=== PATIENT | male | born 1945 | race Caucasian/White ===

== ENCOUNTER → 2017-11-26 | Outpatient (CLI) | payer MEDICARE ==
--- NOTE | 2017-11-27 08:44 | ECHOF ---
Referral Reason:R06.02 Shortness of Breath MEASUREMENTS -------- HEIGHT: 188.0 cm WEIGHT: 158.8 kg BP: RVIDd: 3.4 cm (< 3.3) IVSd: 1.5 cm (0.6 - 1.1) LVIDd: 3.6 cm (3.9 - 5.3) LVPWd: 1.5 cm (0.6 - 1.1) IVSs: 1.8 cm LVIDs: 2.6 cm LVPWs: 1.9 cm LAESV Index (A-L): 21.66 ml/m Ao Diam: 3.6 cm (2.0 - 3.7) AV Cusp: 1.1 cm (1.5 - 2.6) LA Diam: 4.4 cm (2.7 - 3.8) MV E Babak: 0.51 m/s MV DecT: 92 ms MV A Babak: 0.89 m/s MV E/A Ratio: 0.57 RAP: 5.00 mmHg RVSP: 19.33 mmHg FINDINGS -------- Resting tachycardia (HR>100bpm). This was a technically difficult study with suboptimal views. The left ventricular size is normal. There is moderate concentric left ventricular hypertrophy. O verall left ventricular systolic function is normal with, an EF between 55 - 60 %. The right ventricle is mildly enlarged. Normal LA size by volume 22+/-6 ml/m2. RA appears enlarged. 3 ml of Lumason utilized for the enhancement of images. There is mild aortic valve sclerosis. There is no evidence of aortic regurgitation. There is no e vidence of aortic stenosis. Mild mitral annular calcification present. There is trace to mild mitral regurgitation. Trace tricuspid regurgitation present. Right ventricular systolic pressure is normal at < 35 mmHg. There is no evidence of pulmonary hypertension. Trace/mild (physiologic) pulmonic regurgitation. The aortic root is mildy dilated to 3.8 cm. IVC Not well visulized. There is no pericardial effusion. CONCLUSIONS -------- 1. Resting tachycardia (HR>100bpm). 2. This was a technically difficult study with suboptimal views. 3. The left ventricular size is normal. 4. There is moderate concentric left ventricular hypertrophy. 5. Overall left ventricular systolic function is normal with, an EF between 55 - 60 %. 6. The right ventricle is mildly enlarged. 7. Normal LA size by volume 22+/-6 ml/m2. 8. RA appears enlarged. 9. 3 ml of Lumason utilized for the enhancement of images. 10. There is mild aortic valve sclerosis. 11. Mild mitral annular calcification present. 12. There is trace to mild mitral regurgitation. 13. Trace tricuspid regurgitation present. 14. Right ventricular systolic pressure is normal at < 35 mmHg. 15. There is no evidence of pulmonary hypertension. 16. Trace/mild (physiologic) pulmonic regurgitation. 17. The aortic root is mildy dilated to 3.8 cm. 18. IVC Not well visulized. 19. There is no pericardial effusion. LABORATORY CLERK: Terry Tolliver RDCS
== END | disposition home or self-care (01) ==
LOC: RADECHMAIN 15:33
PROVIDERS: ATTEND Family Medicine
DX: I08.0 Rheumatic disorders of both mitral and aortic valves (principal); I77.819 Aortic ectasia, unspecified site; R00.0 Tachycardia, unspecified
CPT/HCPCS: C8929; Q9950; 93306

== ENCOUNTER → 2017-12-17 | Day surgery (SDC) | payer MEDICARE ==
[2017-12-14 09:59] VITALS: BMI 45.3
[~2017-12-17] MED LIST: LIDOCAINE 1% INJ 10MG/ML (20 ML MDV) ONE; METOPROLOL TARTRATE 50 MG TAB PO SCH; PROPOFOL 10 MG/ML 20 ML VIAL IV ONE; SODIUM CHLORIDE 0.9% 1,000 ML IV SCH; fentaNYL (PF) 50 MCG/ML 2 ML AMP ONE
[2017-12-17 06:37] VITALS: TEMP 98.3
[2017-12-17 06:56] LABS: INR 2.6 (<1.2); Prothrombin Time 23.7 sec (9.0-12.0)
[2017-12-17] MEDS: BENZOCAINE SPRAY 1 CAN MUCOUS MEM ONE ×2 (07:13→07:24)
[2017-12-17 07:16] LABS: Calcium 9.3 mg/dL (8.4-10.2); Potassium 4.8 mmol/L (3.5-5.1)
--- NOTE | 2017-12-17 08:03 | ECHOT ---
TRANSESOPHAGEAL ECHOCARDIOGRAM DATE OF SERVICE: 12/17/2017 PERFORMING PHYSICIAN: Naga Deleon MD, milling/polishing operator. PROCEDURE PERFORMED: Transesophageal echocardiogram. INDICATION: This is a pleasant 72-year-old gentleman who was diagnosed with atrial flutter/atrial fibrillation and was brought today to undergo a cardioversion. The transesophageal echocardiogram is to rule out any left atrial appendage thrombus. COMPLICATION: None. LEVEL OF SEDATION: Deep sedation was performed with SUPERVISOR COAL HANDLING/anesthesiologist in the room and using propofol. PROCEDURE DESCRIPTION: After obtaining an informed consent, the patient was brought to the transesophageal echocardiogram suite. The patient was turned into left lateral position. A bite guard was placed. The throat was sprayed as well. Subsequently, the patient was given propofol. Subsequently the transesophageal echocardiogram probe was advanced through the bite guard to the mid esophagus where 2-D echocardiogram images as well as color Doppler images of various cardiac structures were obtained. Particular attention was paid to the left atrial appendage. The procedure was completed without any complication. FINDINGS: Left ventricular dimension appear to be within normal limits. Left ventricular systolic function is on the low limits of normal with EF about 50%. The right ventricle is dilated. The left atrium and right atrium are severely dilated. Left atrial appendage appeared to be free from any thrombus. The interatrial septum appeared to be intact. The aortic valve is thickened and calcified without stenosis with mild insufficiency. The mitral valve seems to be also thickened with mild MR. Moderate tricuspid regurgitation was seen with a pulmonary artery systolic pressure of 55 mmHg. CONCLUSION: 1. Low normal left ventricular systolic function with an ejection fraction of 50%. 2. Mild concentric left ventricular hypertrophy. 3. Dilated right ventricle with normal function. 4. Severe biatrial enlargement. 5. Intact interatrial septum. 6. Normal left atrial appendage without any evidence of thrombus. 7. Trileaflet aortic valve without stenosis with mild insufficiency with evidence of aortic sclerosis. 8. Thickened mitral valve leaflets with mild mitral regurgitation only. 9. Moderate tricuspid regurgitation. 10.Moderate pulmonary hypertension. 11.No evidence of pericardial effusion. MMODL / IJN: [id number] /
[2017-12-17 08:21] VITALS: RESP 18
--- NOTE | 2017-12-17 08:25 | CE ---
CARDIAC ELECTROPHYSIOLOGY REPORT DATE OF SERVICE: 12/17/2017 PERFORMING PHYSICIAN: Naga Deleon MD. PROCEDURE PERFORMED: Cardioversion. INDICATION: This is a pleasant 72-year-old gentleman who was diagnosed with atrial flutter/atrial fibrillation with uncontrolled heart rate. He underwent transesophageal echocardiogram and left atrial appendage thrombus was ruled out. We decided to pursue with cardioversion. COMPLICATION: None. LEVEL OF SEDATION: Level of sedation was deep sedation with DIVISION ORDER TECHNICIAN/anesthesiologist in the room. PROCEDURE DESCRIPTION: After a transesophageal echocardiogram was performed and left atrial appendage thrombus was ruled out, we pursued with cardioversion. The patient converted from atrial flutter/atrial fibrillation to normal sinus mechanism using 360 joules with the third attempt. CONCLUSION: Successful cardioversion of atrial flutter/atrial fibrillation using 360 joule on third attempt. MMODL / IJN: [id number] /
[2017-12-17 09:20] VITALS: BP 114/83; PULSE 77
== END | disposition home or self-care (01) ==
LOC: CATHCVL 06:01
PROVIDERS: ATTEND Internal Medicine Interventional Cardiology
DX: I48.92 Unspecified atrial flutter (principal); I48.91 Unspecified atrial fibrillation; I08.3 Combined rheumatic disorders of mitral, aortic and tricuspid valves; I27.20 Pulmonary hypertension, unspecified; R00.0 Tachycardia, unspecified; I10 Essential (primary) hypertension; E78.5 Hyperlipidemia, unspecified; I45.6 Pre-excitation syndrome; E66.9 Obesity, unspecified; Z68.42 Body mass index [BMI] 45.0-49.9, adult; G47.33 Obstructive sleep apnea (adult) (pediatric); H40.9 Unspecified glaucoma; M10.9 Gout, unspecified; Z86.718 Personal history of other venous thrombosis and embolism; Z79.01 Long term (current) use of anticoagulants; Z79.899 Other long term (current) drug therapy
CPT/HCPCS: 93312; 93320; 93325; 92960; 80048; 85610; J2001; J3010; J2704; 93005

== ENCOUNTER → 2018-08-15 | Outpatient (CLI) | payer MEDICARE ==
[~2018-08-15] MED LIST changes: -LIDOCAINE 1% INJ 10MG/ML (20 ML MDV) ONE; -METOPROLOL TARTRATE 50 MG TAB PO SCH; -PROPOFOL 10 MG/ML 20 ML VIAL IV ONE; +REGADENOSON 0.4 MG/5 ML SYRINGE IV ONE; -SODIUM CHLORIDE 0.9% 1,000 ML IV SCH; -fentaNYL (PF) 50 MCG/ML 2 ML AMP ONE
--- NOTE | 2018-08-15 11:41 | NM ---
EXAMINATION TYPE: NM stress lexiscan cardiolite DATE OF EXAM: 08/15/2018 COMPARISON: NONE HISTORY: Chest pain TECHNIQUE: After the intravenous administration of 10.7 mCi Tc 99m Sestamibi - Cardiolite resting SP ECT images acquired 45 minutes post injection. The patient received 0.4mg Lexiscan, 25.7 mCi Tc 99m Sestamibi - Stress images obtained [address] injection FINDINGS: Review of stress and rest SPECT images demonstrates no distinct perfusion abnormality. Gated analysi s shows normal wall motion with an estimated left ventricular ejection fraction of 54 %. IMPRESSION: No scintigraphic evidence for reversible ischemia.
--- NOTE | 2018-08-16 09:12 | EST ---
EXERCISE STRESS AGE: 72 SEX: M HT: 6'2' WT: 375 PROTOCOL: Lexiscan Cardiolite Stress Test HEART RATE REST: 82 BLOOD PRESSURE REST: 136/101 MAXIMUM HEART RATE ACHIEVED: 123 MAXIMUM BLOOD PRESSURE: 161/103 85% MPHR: 128 100% MPHR: 150 INDICATIONS: Shortness of breath. Abnormal EKG and atrial fibrillation CLINICAL INFORMATION: STRESS DATA: Pretesting physical examination showed a heart rate of 82, pressure is 136/101 mmHg. Baseline EKG showed atrial flutter. 0.4 mg of Lexiscan was given over 15 seconds per protocol. Max heart rate was 123 beats per minute and maximum pressure was 161/103 mmHg. Clinically, the patient did not have any symptoms of chest pain or discomfort and the EKG did not show any significant ST or T-wave abnormalities concerning for ischemia. CONCLUSION: 1. Nondiagnostic electrocardiogram stress testing in response to Lexiscan. 2. Please follow up on the Cardiolite portion on separate report from the Radiology Department. MMODL / IJN: [id number] /
== END ==
LOC: RADNMMAIN 08:03
PROVIDERS: ATTEND Internal Medicine Interventional Cardiology
DX: R06.02 Shortness of breath (principal)
CPT/HCPCS: 93017; 78452; A9500; J2785

== ENCOUNTER → 2018-11-17 | Outpatient (CLI) | payer MEDICARE ==
--- NOTE | 2018-11-17 12:26 | CONS ---
CONSULTATION DATE OF SERVICE: 11/17/2018 A 72-year-old gentleman has been evaluated in sleep center for obstructive sleep apnea- hypopnea syndrome. HISTORY OF PRESENT ILLNESS/SLEEP WAKE EVALUATION: Patient had been diagnosed with obstructive sleep apnea 1999 at that time was recommended to use treatment with CPAP but for different reason was not able to use treatment. About 1 year ago, he tried to restart his CPAP therapy again by recommendation of his tire regrooving machine operator. Presently his sleep schedule from around midnight until 6 to 9 a.m. Sometimes he has problem with falling asleep, has TV set in bedroom. He sleeps in different positions with loud snoring, episodes of stopped breathing during the sleep, grinding teeth, awakenings with dry mouth, palpitations, gasping for air, up to 3 times per night with up to 2 episodes of nocturia. In the morning, patient wakes up tired, may feel sleepy during the day. [place] Sleepiness Scale is 4. PAST MEDICAL HISTORY: Positive for supraventricular tachycardia, atrial flutter, allergies, right low leg DVT, left foot plantar fasciitis, back problems, neck problems, cardioversion. PAST SURGICAL HISTORY: Right knee arthroscopic surgery, tonsillectomy, bilateral surgery for carpal tunnel syndrome, status post several eye surgeries. MEDICATIONS: Warfarin, metoprolol, probenecid, hydrochlorothiazide, , glucosamine, calcium, vitamin D. REVIEW OF SYSTEMS: Multiple awakenings from sleep. Pain in the foot. Back discomfort. FAMILY HISTORY: Heart problems, stroke, arthritis, sleep apnea, cancer, diabetes. SOCIAL HISTORY: Negative for smoking or using alcohol. PHYSICAL EXAMINATION: During physical exam, gentleman without distress. VITAL SIGNS: BP 127/82, HR 81, RR 14, height 6 feet 1/2 inch, weight 369.8 pounds, body mass index 49.3, temperature 97.5, oxygen saturation at room air 96%. HEENT: PERRLA, EOMI. Oropharynx extremely low position of soft palate. Mallampati 4. Significant restriction of nasal breathing. Wide neck, 21 inches in circumference. NECK: Supple, no JVD. Thyroid is not palpable. LUNGS: Clear to percussion and to auscultation. Good air exchange. No wheezing or rhonchi. HEART: S1, S2 regular. No murmurs, gallops, or rubs. ABDOMEN: Obese. EXTREMITIES: 1+ ankle edema. ICT PROGRAMMER: Awake, alert, and oriented X3. Cranial nerves 2 to 7 intact. There is no fasciculation or atrophy. noted. No focal deficits observed. IMPRESSION: 1. History of obstructive sleep apnea diagnosed about 18 years ago. The patient was not able to use his CPAP equipment after diagnosed with sleep apnea, snoring, multiple awakenings from sleep, extremely low position of soft palate, wide neck, obstructive sleep apnea-hypopnea syndrome. 2. Obesity, body mass index 49.3. 3. History of supraventricular tachycardia. 4. History of atrial flutter. 5. Status post cardioversion in 2016. 6. Allergy. 7. Back problems. 8. Neck problems. 9. Status post right foot deep venous thrombosis. 10.Status post bilateral surgery for carpal tunnel syndrome. 11.Status post tonsillectomy. 12.Status post right knee arthroscopic surgery. 13.Status post several eye surgeries for increased eye pressure. 14.Heel spurs had been removed in other surgery. PLAN: 1. Polysomnography for evaluation of patient's breathing during sleep. 2. CPAP/BiPAP titration if sleep study confirms obstructive sleep apnea-hypopnea syndrome. 3. Preferable position during sleep on the side. 4. No driving if patient feels any sleepiness. 5. I will see patient for follow up visit to explain results of testing and following plan. Thank you very much for referring this patient for consultation. Sincerely, Easton Vann MD, PhD, FAASM Diplomat of [employer] Street Flusher Driver of [facility] [place] MMODL / AKANKSHAN: [id number] /
== END | disposition home or self-care (01) ==
LOC: SLEEP 10:59
PROVIDERS: ATTEND Internal Medicine
DX: G47.33 Obstructive sleep apnea (adult) (pediatric) (principal); E66.9 Obesity, unspecified; T78.40XA Allergy, unspecified, initial encounter; M53.9 Dorsopathy, unspecified; Z68.42 Body mass index [BMI] 45.0-49.9, adult; Z86.718 Personal history of other venous thrombosis and embolism; Z90.09 Acquired absence of other part of head and neck; Z98.890 Other specified postprocedural states; Z86.79 Personal history of other diseases of the circulatory system; Z79.01 Long term (current) use of anticoagulants; Z79.899 Other long term (current) drug therapy
CPT/HCPCS: 99211

== ENCOUNTER → 2019-02-09 | Outpatient (CLI) | payer MEDICARE ==
--- NOTE | 2019-02-09 15:06 | SFUN ---
SLEEP CENTER FOLLOW UP NOTE DATE OF SERVICE: 02/09/2019 A 73-year-old gentleman who has been followed in the Sleep Center for treatment of obstructive sleep apnea-hypopnea syndrome. Recently patient had polysomnogram which showed extremely severe sleep apnea. Subsequently, he had CPAP and BiPAP titration on the pressure of 23/19, respiration was under control. The patient received his BiPAP unit and started to use it. Patient feels better with the BiPAP. Sleep is better and feels better during the day, but sometimes has leak from his mask. He increased his REM time to maximal time 45 minutes because when he started treatment, he felt before the pressure is too high. I checked his BiPAP unit pressure is 23/19 cm of water. The patient is using equipment every night for the whole night, usage is 100% of the time more than 4 hours. Average usage 8.5 hours. to assist 10/23/2006 the: Twenty-three. Leak is up to 46 L/minute. Apnea-hypopnea index is 0 for the last month according to reading from the machine. [place] Sleepiness Scale today is 5. MEDICATIONS: Warfarin, metoprolol, probenecid, hydrochlorothiazide, glucosamine, loratadine, vitamin D, glucosamine. PHYSICAL EXAM: Patient in no distress. BP 129/70, HR 80, RR 18, weight 369.8, temperature 98.1. OROPHARYNX: Low position of soft palate. Mallampati IV. ABDOMEN: Obese. Neck Supple, no JVD. Thyroid is not palpable. LUNGS Clear to percussion and to auscultation. Good air exchange. No wheezing or rhonchi. HEART S1, S2 regular. No murmurs, gallops, or rubs. EXTREMITIES No clubbing or cyanosis. CLOSED CIRCUIT SCREEN WATCHER Awake, alert, and oriented X3. Cranial nerves 2 to 7 intact. There is no fasciculation or atrophy. noted. No focal deficits observed. IMPRESSION: 1. Extremely severe obstructive sleep apnea-hypopnea syndrome; apnea-hypopnea index 78.4. Patient demonstrated 100% compliance with treatment, benefitting from treatment. Quite high leak from the full-face mask. 2. Obesity. 3. History of supraventricular tachycardia. 4. History of atrial flutter. 5. Status post cardioversion in 2016. 6. Allergy. 7. Back problems. 8. Neck problems. 9. Status post right foot deep venous thrombosis. 10.Status post bilateral surgery for carpal tunnel syndrome. 11.Status post tonsillectomy. 12.Status post right knee arthroscopic surgery. 13.Status post several eye surgeries for increased eye pressure. PLAN: 1. I changed regimen of the BiPAP unit to the automatic with the minimal EPAP 10 cm of water and maximal IPAP 23 cm of water with a pressure support of 4. I believe that should make the patient feel more comfortable with the BiPAP unit. 2. Refitted patient with Dream wear full-face mask, large size, but there is a leak from that mask. 3. With proper fitting of the present full-face mask, which is Air Fit Air 20 right size, there is no significant leak. 4. Patient will continue to use BiPAP equipment every night for the whole night. 5. Losing weight. 6. Sleep hygiene with regular time in bed for at least 8 hours. 7. No driving if feeling any sleepiness. Thank you very much for allowing me to participate in the management of your patient. Sincerely, Easton Vann MD, PhD, FAASM Diplomat of [place] [employer] [place] [employer] Photographic Editor of [facility] [place] MMODL / IJN: [id number] /
== END | disposition home or self-care (01) ==
LOC: SLEEP 13:27
PROVIDERS: ATTEND Internal Medicine
DX: G47.33 Obstructive sleep apnea (adult) (pediatric) (principal); E66.9 Obesity, unspecified; T78.40XA Allergy, unspecified, initial encounter; M53.9 Dorsopathy, unspecified; Z86.79 Personal history of other diseases of the circulatory system; Z86.718 Personal history of other venous thrombosis and embolism; Z99.89 Dependence on other enabling machines and devices; Z90.09 Acquired absence of other part of head and neck; Z98.890 Other specified postprocedural states; Z79.01 Long term (current) use of anticoagulants; Z79.899 Other long term (current) drug therapy

== ENCOUNTER → 2019-05-11 | Outpatient (CLI) | payer MEDICARE ==
--- NOTE | 2019-05-11 15:54 | PN ---
PROGRESS NOTE DATE OF SERVICE: 05/11/2019 73-year-old gentleman has been followed in Sleep Center for treatment of severe obstructive sleep apnea-hypopnea syndrome. The patient continued to use his BiPAP equipment every night for the whole night. Feels better with equipment. [place] Sleepiness Scale today is 5. I checked his BiPAP unit. It is in automatic regimen with maximal IPAP 23 cm of water and minimal EPAP 10 cm of water with a pressure support of 4. Average pressure 14.6/10.6. Usage is 100% of nights more than 4 hours with average usage 9.3 hours. Leak 25 L/minute which is borderline for a full-face mask. Apnea-hypopnea index only 0.6, which is absolutely perfect. MEDICATIONS: Warfarin, metoprolol, probenecid, hydrochlorothiazide, glucosamine, loratadine, vitamin D. PHYSICAL EXAM: Patient in no distress. BP 130/78, HR 92, RR 16, height 6 feet 0, weight 364, BMI 49.5, temperature 97.7, oxygen saturation at room air 96%. Oropharynx extremely low soft palate, Mallampati 3-4. Neck Supple, no JVD. Thyroid is not palpable. LUNGS Clear to percussion and to auscultation. Good air exchange. No wheezing or rhonchi. HEART S1, S2 regular. No murmurs, gallops, or rubs. ABDOMEN: Obese. Soft and nontender. Bowel sounds are present. No organomegaly appreciated. EXTREMITIES No clubbing or cyanosis. OPERATIONS CONSULTANT Awake, alert, and oriented X3. Cranial nerves 2 to 7 intact. There is no fasciculation or atrophy. noted. No focal deficits observed. IMPRESSION: 1. Severe obstructive sleep apnea-hypopnea syndrome apnea-hypopnea index 78.4. The patient demonstrated 100% compliance with treatment benefitting from treatment. The leak decreased to normal range comparing with the previous visit. 2. Obesity. 3. History of supraventricular tachycardia. 4. History of atrial flutter. 5. Status post cardioversion in 2016. 6. Allergy. 7. Back problem. 8. Neck problems. 9. Status post right foot deep venous thrombosis. 10.Status post bilateral surgery for carpal tunnel syndrome. 11.Status post tonsillectomy. 12.Status post right knee arthroscopic surgery. 13.Status post several eye surgeries for increased eye pressure. PLAN: 1. Patient will continue to use BiPAP equipment every night for the whole night. 2. Losing weight. 3. Sleep hygiene with regular time in bed for at least 7-1/2 to 8 hours. 4. No driving if feeling any sleepiness. 5. We will maintain all necessary prescriptions for mask, tube, filters. Thank you very much for allowing me to participate in management of your patient. Sincerely, Easton Vann MD, PhD, FAASM Diplomat of [employer] Coin Machine Operator of [facility] [place] MMODL / AKANKSHAN: [id number] /
== END | disposition home or self-care (01) ==
LOC: SLEEP 12:58
PROVIDERS: ATTEND Internal Medicine
DX: G47.33 Obstructive sleep apnea (adult) (pediatric) (principal); T78.40XA Allergy, unspecified, initial encounter; E66.9 Obesity, unspecified; Z86.79 Personal history of other diseases of the circulatory system; Z87.898 Personal history of other specified conditions; Z86.718 Personal history of other venous thrombosis and embolism; Z98.890 Other specified postprocedural states; Z79.01 Long term (current) use of anticoagulants; Z79.899 Other long term (current) drug therapy; Z99.89 Dependence on other enabling machines and devices

== ENCOUNTER 2019-05-20 17:36 | Emergency (ER) | payer MEDICARE ==
[2019-05-20 17:45] VITALS: TEMP 97.9
[2019-05-20] MEDS ORDERED: SODIUM CHLORIDE 0.9% 1,000 ML IV ONE (17:57)
[2019-05-20] MEDS ORDERED: cefTRIAXone IN SWFI 1,000 MG/10 ML SYRINGE IVP STA (17:57)
[2019-05-20] MEDS ORDERED: SODIUM CHLORIDE 0.9% 1,000 ML IV SCH (18:00)
--- NOTE | 2019-05-20 18:24 | ED ---
Lower Extremity Injury HPI - General Chief Complaint: Extremity Injury, Lower Stated Complaint: POSS LEFT FOOT INFECTION Time Seen by Provider: 05/20/19 17:55 Source: patient Mode of arrival: ambulatory Limitations: no limitations - History of Present Illness Initial Comments: 73-year-old male with history of gout, supraventricular tachycardia presents t [facility] for chief complaint of left foot cellulitis. Patient states that on May 14 she noticed redness and pain just proximal to the base of the digits. He states the pain or redness was increasing and on the to present to an urgent care, evaluation by Dr. Lucas. Was prescribed antibiotics, Keflex. Patient states he has taken a total of 5 doses in the last 2 days. He states he continues to have pain and redness, but the redness has not spread. Patinet states he has not recorded a temperature at home. He has been taking tylenol for the pain that he describes as burning 05/13. Patient denies pain of the calf. Denies any other complaints. Upon arrival patient appears well, no signs of acute distress. Afebrile. HR 91, appears nontoxic. - Related Data Home Medications Medication Instructions Recorded Confirmed Cholecalciferol [Vitamin D3 (25 1,000 unit PO DAILY 07/09/15 12/17/17 Mcg = 1000 Iu)] Glucosamine Sulfate 1,000 mg PO DAILY 07/09/15 12/17/17 Probenecid 500 mg PO DAILY 07/09/15 12/17/17 Warfarin [Coumadin] 5 mg PO DAILY 07/09/15 12/17/17 Metoprolol Tartrate [Lopressor] 50 mg PO BID 12/14/17 12/17/17 Oseltamivir [Tamiflu] 75 mg PO Q12HR 12/14/17 12/17/17 Previous Rx's Medication Instructions Recorded Indomethacin [Indocin] 50 mg PO TID 3 Days #9 capsule 05/20/19 Allergies Allergy/AdvReac Type Severity Reaction Status Date / Time DUST, MOLD Allergy SNEEZING, Uncoded 05/20/19 17:38 RHINITIS POLLEN Allergy SNEEZING, Uncoded 05/20/19 17:38 RHINITIS Review of Systems ROS Statement: Those systems with pertinent positive or pertinent negative responses have been documented in the HPI. ROS Other: All systems not noted in ROS Statement are negative. Past Medical History Past Medical History: Deep Vein Thrombosis (DVT), Eye Disorder, Hyperlipidemia, Hypertension, Osteoarthritis (OA), Sleep Apnea/CPAP/BIPAP, Supraventricular Tachycardia (SVT) Additional Past Medical History / Comment(s): HX MALARIA. GOUT. POSS TOMMY- PARKINSON WHITE SYNDROME. UNABLE TO TOLERATE CPAP. GLAUCOMA, HEMORRHOIDS. PRE-CA LESIONS ON SCALP. GLAUCOMA, History of Any Multi-Drug Resistant Organisms: None Reported Past Surgical History: Orthopedic Surgery, Tonsillectomy Additional Past Surgical History / Comment(s): TONSILS X2. JEANE EYES FOR GLAUCOMA , RT KNEE-ARTHROSCOPIC , BILATERAL CARPAL TUNNEL RELEASE Past Anesthesia/Blood Transfusion Reactions: No Reported Reaction Past Psychological History: No Psychological Hx Reported Smoking Status: Never smoker Past Alcohol Use History: None Reported Past Drug Use History: None Reported - Past Family History Mother Family Medical History: Cancer Father Family Medical History: Cancer General Exam - General Exam Comments Initial Comments: General: The patient is awake and alert, in no distress, and does not appear toxic Eye: +3 mm pupils are equal, round and reactive to light, extra-ocular movements are intact. No nystagmus. There is normal conjunctiva bilaterally. No signs of icterus. Patient wearing glasses. Ears, nose, mouth and throat: There are moist mucous membranes and no oral lesions. Cardiovascular: There is a regular rate and rhythm. No murmur, rub or gallop is appreciated. Respiratory: Lungs are clear to auscultation, respirations are non-labored, breath sounds are equal. No wheezes, stridor, rales, or rhonchi. Musculoskeletal: Normal ROM, no tenderness. Strength 5/5. Sensation intact. DP pulses equal bilaterally 2+. LE swelling of the left foot, redness of the foot just proximal to the digits with partial involvement of the toes mostly great toe, extends until midfoot, no extension up calf or near ankle. Neurological: A&O x 3. CN II-XII intact grossly, There are no obvious motor or sensory deficits. Coordination appears grossly intact. Speech is normal. Skin: Skin is warm and dry and no rashes or lesions are noted. Psychiatric: Cooperative, appropriate mood & affect, normal judgment. Limitations: no limitations Course Vital Signs 05/20/19 05/20/19 17:38 20:05 Temperature 97.9 F Pulse Rate 91 88 Respiratory 18 17 Rate Blood Pressure 123/85 144/97 O2 Sat by Pulse 96 95 Oximetry Medical Decision Making - Medical Decision Making 73-year-old male presenting for left foot pain. patient has history of gout. Patient is a [place] by lightening provider Dr. Mccullough, given the extend of redness of great toe with history of no spread of redness with persistent pain we feel this most likely is a gouty exacerbation. Attending recommends discharge home. Patient also states that the night prior to onset he ate pork. patient is afebrile. No leukocytosis. Patient be discharged with instruction to continue Keflex and given a prescription for indomethacin. Patient is to follow-up with his primary care provider. Return parameters were discussed at length patient is agreeable to this care plan discharge at this time. - Lab Data Result diagrams: 05/20/19 18:22 05/20/19 18:22 Lab Results 05/20/19 05/20/19 05/20/19 Range/Units 18:22 18:22 18:22 WBC 6.8 (3.8-10.6) k/uL RBC 5.49 (4.30-5.90) m/uL Hgb 16.9 (13.0-17.5) gm/dL Hct 49.8 (39.0-53.0) % MCV 90.7 (80.0-100.0) fL MCH 30.7 (25.0-35.0) pg MCHC 33.9 (31.0-37.0) g/dL RDW 13.0 (11.5-15.5) % Plt Count 228 (150-450) k/uL Neutrophils % 64 % Lymphocytes % 22 % Monocytes % 6 % Eosinophils % 5 % Basophils % 1 % Neutrophils # 4.3 (1.3-7.7) k/uL Lymphocytes # 1.5 (1.0-4.8) k/uL Monocytes # 0.4 (0-1.0) k/uL Eosinophils # 0.3 (0-0.7) k/uL Basophils # 0.1 (0-0.2) k/uL Sodium 141 (137-145) mmol/L Potassium 4.6 (3.5-5.1) mmol/L Chloride 106 (98-107) mmol/L Carbon Dioxide 25 (22-30) mmol/L Anion Gap 10 mmol/L BUN 31 H (9-20) mg/dL Creatinine 1.44 H (0.66-1.25) mg/dL Est GFR (CKD-EPI)AfAm 56 (>60 ml/min/1.73 sqM) Est GFR (CKD-EPI)NonAf 49 (>60 ml/min/1.73 sqM) Glucose 107 H (74-99) mg/dL Plasma Lactic Acid Stevie 1.4 (0.7-2.0) mmol/L Calcium 9.8 (8.4-10.2) mg/dL Total Bilirubin 0.7 (0.2-1.3) mg/dL AST 31 (17-59) U/L ALT 19 L (21-72) U/L Alkaline Phosphatase 86 (38-126) U/L Total Protein 7.7 (6.3-8.2) g/dL Albumin 4.3 (3.5-5.0) g/dL Disposition Clinical Impression: Gout attack, Left foot pain Disposition: HOME SELF-CARE Condition: Good Instructions (If sedation given, give patient instructions): Low Purine Diet (ED), Gout (ED) Additional Instructions: Please use medication as discussed. Please follow-up with family doctor in the next 2 days. Continue keflex. Please return to emergency room if the symptoms increase or worsen or for any other concerns. Prescriptions: Indomethacin [Indocin] 50 mg PO TID 3 Days #9 capsule Is patient prescribed a controlled substance at d/c from ED?: No Referrals: Luis Fernando Mendes MD [Primary Care Provider] - 1-2 days Time of Disposition: 19:36
--- NOTE | 2019-05-20 18:34 | XR ---
EXAMINATION TYPE: XR foot complete LT DATE OF EXAM: 05/20/2019 COMPARISON: NONE HISTORY: Foot pain TECHNIQUE: 3 views FINDINGS: There is large plantar calcaneal spur. Metatarsals are intact. I see no fracture nor disloc ation. There is some soft tissue swelling of the forefoot. IMPRESSION: Calcaneal spurring. Soft tissue swelling. No fracture seen.
[2019-05-20 18:47] LABS: Basophils # (A) 0.1 k/uL (0-0.2); Basophils % (A) 1 %; Eosinophils # (A) 0.3 k/uL (0-0.7); Eosinophils % (A) 5 %; HCT 49.8 % (39.0-53.0); HGB 16.9 gm/dL (13.0-17.5); Lymphocytes # (A) 1.5 k/uL (1.0-4.8); Lymphocytes % (A) 22 %; MCH 30.7 pg (25.0-35.0); MCHC 33.9 g/dL (31.0-37.0); MCV 90.7 fL (80.0-100.0); Mean Platelet Volume 6.8; Monocytes # (A) 0.4 k/uL (0-1.0); Monocytes % (A) 6 %; Neutrophils # (A) 4.3 k/uL (1.3-7.7); Neutrophils % (A) 64 %; Platelet Count 228 k/uL (150-450); RBC 5.49 m/uL (4.30-5.90); WBC 6.8 k/uL (3.8-10.6)
[2019-05-20 18:56] LABS: Albumin 4.3 g/dL (3.5-5.0); Calcium 9.8 mg/dL (8.4-10.2); Potassium 4.6 mmol/L (3.5-5.1); Total Bilirubin 0.7 mg/dL (0.2-1.3); Total Protein 7.7 g/dL (6.3-8.2)
[2019-05-20 20:16] VITALS: BP 144/97; PULSE 88; RESP 17
== END 2019-05-20 20:16 | disposition home or self-care (01) ==
LOC: EC 17:36
DX: M10.9 Gout, unspecified (principal); G47.30 Sleep apnea, unspecified; M19.90 Unspecified osteoarthritis, unspecified site; I10 Essential (primary) hypertension; Z79.01 Long term (current) use of anticoagulants; Z79.899 Other long term (current) drug therapy; Z91.048 Other nonmedicinal substance allergy status; Z86.718 Personal history of other venous thrombosis and embolism; Z99.89 Dependence on other enabling machines and devices
CPT/HCPCS: 36415; 80053; 83605; 85025; 87040; 73630; 99283; 96374; J0696

== ENCOUNTER → 2019-05-23 | Outpatient (CLI) | payer MEDICARE ==
--- NOTE | 2019-05-23 15:23 | XR ---
Right hip HISTORY: Chronic pain 2 views of the right hip No comparisons Bone mineralization, joint spaces and alignment are maintained. No fracture or dislocation. Calcifica tions present along the hamstring musculature origins could represent calcific tendinitis or chronic tear. IMPRESSION: No acute abnormality. MRI may be of benefit.
--- NOTE | 2019-05-23 15:27 | XR ---
Right knee HISTORY: Chronic pain 3 views of the right knee There is marginal spurring present tricompartmentally. Joint space loss is greatest at the patellofem oral joint. Difficult to exclude a small effusion. There may be slight valgus deformity at the knee j oint. No fracture or dislocation. IMPRESSION: Osteoarthritis.
== END ==
LOC: RADXRMAIN 11:28
PROVIDERS: ATTEND Family Medicine
DX: M17.12 Unilateral primary osteoarthritis, left knee (principal); R52 Pain, unspecified
CPT/HCPCS: 73502

== ENCOUNTER 2019-09-09 18:49 | Emergency (ER) | payer MEDICARE ==
[2019-09-09 19:00] VITALS: RESP 18
[2019-09-09 19:11] LABS: Glucose,Whole Blood 192 mg/dL (75-99)
[2019-09-09] MEDS ORDERED: SODIUM CHLORIDE 0.9% 1,000 ML IV STA (19:14)
--- NOTE | 2019-09-09 19:16 | ED ---
Fall HPI - General Chief Complaint: Fall Stated Complaint: Fall Time Seen by Provider: 09/09/19 19:14 Source: patient, RN notes reviewed, old records reviewed Mode of arrival: ambulatory - History of Present Illness Initial Comments: This is a 73-year-old male status post fall. Patient is on surgical 4 seizures following down his head. No loss of consciousness. Patient is on blood thinners. When he had some neck pain or neck pain. Patient sent here from urgent care for evaluation. No modifying factors for pain. Patient placed in c-collar upon arrival in emergency department. Patient denies any neurological complaints MD Complaint: fall -: hour(s) Fall From: standing When Fall Occurred: 1 hour [employer] Fall Witnessed: yes, by family Place Fall Occurred: home Loss of Consciousness: none Prolonged Down Time?: no Symptoms Prior to Fall: none Location: head, neck Severity: moderate Severity scale (1-10): 3 Context: tripped/slipped Associated Symptoms: denies - Related Data Home Medications Medication Instructions Recorded Confirmed Cholecalciferol [Vitamin D3 (25 1,000 unit PO DAILY 07/09/15 12/17/17 Mcg = 1000 Iu)] Glucosamine Sulfate 1,000 mg PO DAILY 07/09/15 12/17/17 Probenecid 500 mg PO DAILY 07/09/15 12/17/17 Warfarin [Coumadin] 5 mg PO DAILY 07/09/15 12/17/17 Metoprolol Tartrate [Lopressor] 50 mg PO BID 12/14/17 12/17/17 Oseltamivir [Tamiflu] 75 mg PO Q12HR 12/14/17 12/17/17 Previous Rx's Medication Instructions Recorded Indomethacin [Indocin] 50 mg PO TID 3 Days #9 capsule 05/20/19 Allergies Allergy/AdvReac Type Severity Reaction Status Date / Time DUST, MOLD Allergy SNEEZING, Uncoded 09/09/19 18:55 RHINITIS POLLEN Allergy SNEEZING, Uncoded 09/09/19 18:55 RHINITIS Review of Systems ROS Statement: Those systems with pertinent positive or pertinent negative responses have been documented in the HPI. ROS Other: All systems not noted in ROS Statement are negative. Past Medical History Past Medical History: Deep Vein Thrombosis (DVT), Eye Disorder, Hyperlipidemia, Hypertension, Osteoarthritis (OA), Sleep Apnea/CPAP/BIPAP, Supraventricular Tachycardia (SVT) Additional Past Medical History / Comment(s): HX MALARIA. GOUT. POSS TOMMY- PARKINSON WHITE SYNDROME. UNABLE TO TOLERATE CPAP. GLAUCOMA, HEMORRHOIDS. PRE-CA LESIONS ON SCALP. GLAUCOMA, History of Any Multi-Drug Resistant Organisms: None Reported Past Surgical History: Orthopedic Surgery, Tonsillectomy Additional Past Surgical History / Comment(s): TONSILS X2. JEANE EYES FOR GLAUCOMA , RT KNEE-ARTHROSCOPIC , BILATERAL CARPAL TUNNEL RELEASE Past Anesthesia/Blood Transfusion Reactions: No Reported Reaction Past Psychological History: No Psychological Hx Reported Smoking Status: Never smoker Past Alcohol Use History: None Reported Past Drug Use History: None Reported - Past Family History Mother Family Medical History: Cancer Father Family Medical History: Cancer General Exam Limitations: no limitations General appearance: alert, in no apparent distress Head exam: Present: atraumatic, normocephalic, normal inspection Eye exam: Present: normal appearance, PERRL, EOMI. Absent: scleral icterus, conjunctival injection, periorbital swelling ENT exam: Present: normal exam, mucous membranes moist Neck exam: Present: normal inspection. Absent: tenderness, meningismus, lymphadenopathy Respiratory exam: Present: normal lung sounds bilaterally. Absent: respiratory distress, wheezes, rales, rhonchi, stridor Cardiovascular Exam: Present: tachycardia, irregular rhythm, normal heart sounds. Absent: systolic murmur, diastolic murmur, rubs, gallop, clicks GI/Abdominal exam: Present: soft, normal bowel sounds. Absent: distended, tenderness, guarding, rebound, rigid Extremities exam: Present: normal inspection, full ROM, normal capillary refill. Absent: tenderness, pedal edema, joint swelling, calf tenderness Back exam: Present: normal inspection Neurological exam: Present: alert, oriented X3, CN II-XII intact Psychiatric exam: Present: normal affect, normal mood Skin exam: Present: warm, dry, intact, normal color. Absent: rash Course Vital Signs 09/09/19 18:56 Temperature 97.4 F L Pulse Rate 121 H Respiratory 18 Rate Blood Pressure 156/82 O2 Sat by Pulse 96 Oximetry - Reevaluation(s) Reevaluation #1: 09/09/19 22:03 Records reviewed Reevaluation #2: 09/09/19 22:04 Is adequately controlled Reevaluation #3: 09/09/19 22:04 Patient still has no neurological complaints Medical Decision Making - Medical Decision Making Sunita status post fall positive C7 right lamina nonDisplaced fracture, spoke with no, neurosurgery in regard to treatment, patient will follow up with neurosurgery and primary care with outpatient MRI. Patient placed in Yessi collar and discharged all currently again nonneurologic - Lab Data Result diagrams: 09/09/19 20:04 09/09/19 20:04 Lab Results 09/09/19 09/09/19 09/09/19 Range/Units 19:07 19:09 19:09 WBC 9.3 (3.8-10.6) k/uL RBC 5.74 (4.30-5.90) m/uL Hgb 18.0 H (13.0-17.5) gm/dL Hct 51.8 (39.0-53.0) % MCV 90.3 (80.0-100.0) fL MCH 31.3 (25.0-35.0) pg MCHC 34.7 (31.0-37.0) g/dL RDW 12.8 (11.5-15.5) % Plt Count 177 (150-450) k/uL Neutrophils % 86 % Lymphocytes % 8 % Monocytes % 4 % Eosinophils % 1 % Basophils % 0 % Neutrophils # 8.0 H (1.3-7.7) k/uL Lymphocytes # 0.8 L (1.0-4.8) k/uL Monocytes # 0.4 (0-1.0) k/uL Eosinophils # 0.1 (0-0.7) k/uL Basophils # 0.0 (0-0.2) k/uL PT (9.0-12.0) sec INR (<1.2) APTT (22.0-30.0) sec Sodium (137-145) mmol/L Potassium (3.5-5.1) mmol/L Chloride (98-107) mmol/L Carbon Dioxide (22-30) mmol/L Anion Gap mmol/L BUN (9-20) mg/dL Creatinine (0.66-1.25) mg/dL Est GFR (CKD-EPI)AfAm (>60 ml/min/1.73 sqM) Est GFR (CKD-EPI)NonAf (>60 ml/min/1.73 sqM) Glucose (74-99) mg/dL POC Glucose (mg/dL) 192 H (75-99) mg/dL POC [employer] Software Specialist ID Alphonso Tomas Plasma Lactic Acid Stevie (0.7-2.0) mmol/L Calcium (8.4-10.2) mg/dL Total Bilirubin (0.2-1.3) mg/dL AST (17-59) U/L ALT (21-72) U/L Alkaline Phosphatase (38-126) U/L Total Creatine Kinase (55-170) U/L CK-MB (CK-2) (0.0-2.4) ng/mL CK-MB (CK-2) Rel Index Troponin I (0.000-0.034) ng/mL Total Protein (6.3-8.2) g/dL Albumin (3.5-5.0) g/dL Amylase (30-110) U/L Lipase (23-300) U/L Urine Color Urine Appearance (Clear) Urine pH (5.0-8.0) Ur Specific [place] (1.001-1.035) Urine Protein (Negative) Urine Glucose (UA) (Negative) Urine Ketones (Negative) Urine Blood (Negative) Urine Nitrite (Negative) Urine Bilirubin (Negative) Urine Urobilinogen (<2.0) mg/dL Ur Leukocyte Esterase (Negative) Urine RBC (0-5) /hpf Urine WBC (0-5) /hpf Ur Squamous Epith Cells (0-4) /hpf Hyaline Casts (0-2) /lpf Urine Mucus (None) /hpf Urine Opiates Screen (NotDetected) Ur Oxycodone Screen (NotDetected) Urine Methadone Screen (NotDetected) Ur Propoxyphene Screen (NotDetected) Ur Barbiturates Screen (NotDetected) U Tricyclic Antidepress (NotDetected) Ur Phencyclidine Scrn (NotDetected) Ur Amphetamines Screen (NotDetected) U Methamphetamines Scrn (NotDetected) U Benzodiazepines Scrn (NotDetected) Urine Cocaine Screen (NotDetected) U Marijuana (THC) Screen (NotDetected) Serum Alcohol mg/dL Blood Type Not Reportable Blood Type Confirm Blood Type Recheck Not Reportable Bld Type Recheck Status Not Reportable Antibody Screen Not Reportable Spec Expiration Date 09/09/2019 09/09/19 09/09/19 12/07/19 Range/Units 19:19 20:00 20:04 WBC (3.8-10.6) k/uL RBC (4.30-5.90) m/uL Hgb (13.0-17.5) gm/dL Hct (39.0-53.0) % MCV (80.0-100.0) fL MCH (25.0-35.0) pg MCHC (31.0-37.0) g/dL RDW (11.5-15.5) % Plt Count (150-450) k/uL Neutrophils % % Lymphocytes % % Monocytes % % Eosinophils % % Basophils % % Neutrophils # (1.3-7.7) k/uL Lymphocytes # (1.0-4.8) k/uL Monocytes # (0-1.0) k/uL Eosinophils # (0-0.7) k/uL Basophils # (0-0.2) k/uL PT 20.1 H (9.0-12.0) sec INR 2.0 H (<1.2) APTT 30.2 H (22.0-30.0) sec Sodium (137-145) mmol/L Potassium (3.5-5.1) mmol/L Chloride (98-107) mmol/L Carbon Dioxide (22-30) mmol/L Anion Gap mmol/L BUN (9-20) mg/dL Creatinine (0.66-1.25) mg/dL Est GFR (CKD-EPI)AfAm (>60 ml/min/1.73 sqM) Est GFR (CKD-EPI)NonAf (>60 ml/min/1.73 sqM) Glucose (74-99) mg/dL POC Glucose (mg/dL) (75-99) mg/dL POC [employer] Software Specialist ID Plasma Lactic Acid Stevie (0.7-2.0) mmol/L Calcium (8.4-10.2) mg/dL Total Bilirubin (0.2-1.3) mg/dL AST (17-59) U/L ALT (21-72) U/L Alkaline Phosphatase (38-126) U/L Total Creatine Kinase (55-170) U/L CK-MB (CK-2) (0.0-2.4) ng/mL CK-MB (CK-2) Rel Index Troponin I (0.000-0.034) ng/mL Total Protein (6.3-8.2) g/dL Albumin (3.5-5.0) g/dL Amylase (30-110) U/L Lipase (23-300) U/L Urine Color Yellow Urine Appearance Clear (Clear) Urine pH 5.5 (5.0-8.0) Ur Specific [place] 1.017 (1.001-1.035) Urine Protein Negative (Negative) Urine Glucose (UA) Negative (Negative) Urine Ketones Negative (Negative) Urine Blood Small H (Negative) Urine Nitrite Negative (Negative) Urine Bilirubin Negative (Negative) Urine Urobilinogen <2.0 (<2.0) mg/dL Ur Leukocyte Esterase Negative (Negative) Urine RBC <1 (0-5) /hpf Urine WBC 1 (0-5) /hpf Ur Squamous Epith Cells <1 (0-4) /hpf Hyaline Casts 3 H (0-2) /lpf Urine Mucus Rare H (None) /hpf Urine Opiates Screen Not Detected (NotDetected) Ur Oxycodone Screen Not Detected (NotDetected) Urine Methadone Screen Not Detected (NotDetected) Ur Propoxyphene Screen Not Detected (NotDetected) Ur Barbiturates Screen Not Detected (NotDetected) U Tricyclic Antidepress Not Detected (NotDetected) Ur Phencyclidine Scrn Not Detected (NotDetected) Ur Amphetamines Screen Not Detected (NotDetected) U Methamphetamines Scrn Not Detected (NotDetected) U Benzodiazepines Scrn Not Detected (NotDetected) Urine Cocaine Screen Not Detected (NotDetected) U Marijuana (THC) Screen Not Detected (NotDetected) Serum Alcohol mg/dL Blood Type Blood Type Confirm B Negative Blood Type Recheck Bld Type Recheck Status Antibody Screen Spec Expiration Date 09/09/19 09/09/19 09/09/19 Range/Units 20:04 20:04 20:04 WBC 9.1 (3.8-10.6) k/uL RBC 5.22 (4.30-5.90) m/uL Hgb 16.8 (13.0-17.5) gm/dL Hct 46.8 (39.0-53.0) % MCV 89.5 (80.0-100.0) fL MCH 32.1 (25.0-35.0) pg MCHC 35.9 (31.0-37.0) g/dL RDW 12.8 (11.5-15.5) % Plt Count 169 (150-450) k/uL Neutrophils % 84 % Lymphocytes % 9 % Monocytes % 5 % Eosinophils % 1 % Basophils % 0 % Neutrophils # 7.6 (1.3-7.7) k/uL Lymphocytes # 0.8 L (1.0-4.8) k/uL Monocytes # 0.5 (0-1.0) k/uL Eosinophils # 0.1 (0-0.7) k/uL Basophils # 0.0 (0-0.2) k/uL PT (9.0-12.0) sec INR (<1.2) APTT (22.0-30.0) sec Sodium 139 (137-145) mmol/L Potassium 3.9 (3.5-5.1) mmol/L Chloride 106 (98-107) mmol/L Carbon Dioxide 26 (22-30) mmol/L Anion Gap 7 mmol/L BUN 30 H (9-20) mg/dL Creatinine 1.48 H (0.66-1.25) mg/dL Est GFR (CKD-EPI)AfAm 54 (>60 ml/min/1.73 sqM) Est GFR (CKD-EPI)NonAf 47 (>60 ml/min/1.73 sqM) Glucose 138 H (74-99) mg/dL POC Glucose (mg/dL) (75-99) mg/dL POC [employer] Software Specialist ID Plasma Lactic Acid Stevie (0.7-2.0) mmol/L Calcium 9.3 (8.4-10.2) mg/dL Total Bilirubin 1.0 (0.2-1.3) mg/dL AST 50 (17-59) U/L ALT 35 (21-72) U/L Alkaline Phosphatase 79 (38-126) U/L Total Creatine Kinase (55-170) U/L CK-MB (CK-2) (0.0-2.4) ng/mL CK-MB (CK-2) Rel Index Troponin I (0.000-0.034) ng/mL Total Protein 6.9 (6.3-8.2) g/dL Albumin 4.0 (3.5-5.0) g/dL Amylase 54 (30-110) U/L Lipase 240 (23-300) U/L Urine Color Urine Appearance (Clear) Urine pH (5.0-8.0) Ur Specific [place] (1.001-1.035) Urine Protein (Negative) Urine Glucose (UA) (Negative) Urine Ketones (Negative) Urine Blood (Negative) Urine Nitrite (Negative) Urine Bilirubin (Negative) Urine Urobilinogen (<2.0) mg/dL Ur Leukocyte Esterase (Negative) Urine RBC (0-5) /hpf Urine WBC (0-5) /hpf Ur Squamous Epith Cells (0-4) /hpf Hyaline Casts (0-2) /lpf Urine Mucus (None) /hpf Urine Opiates Screen (NotDetected) Ur Oxycodone Screen (NotDetected) Urine Methadone Screen (NotDetected) Ur Propoxyphene Screen (NotDetected) Ur Barbiturates Screen (NotDetected) U Tricyclic Antidepress (NotDetected) Ur Phencyclidine Scrn (NotDetected) Ur Amphetamines Screen (NotDetected) U Methamphetamines Scrn (NotDetected) U Benzodiazepines Scrn (NotDetected) Urine Cocaine Screen (NotDetected) U Marijuana (THC) Screen (NotDetected) Serum Alcohol <10 mg/dL Blood Type B Negative Blood Type Confirm Blood Type Recheck No Previous Record Bld Type Recheck Status CABO Indicated Antibody Screen NEGATIVE Spec Expiration Date 09/12/2019230309/09/19 09/09/19 Range/Units 20:04 20:04 WBC (3.8-10.6) k/uL RBC (4.30-5.90) m/uL Hgb (13.0-17.5) gm/dL Hct (39.0-53.0) % MCV (80.0-100.0) fL MCH (25.0-35.0) pg MCHC (31.0-37.0) g/dL RDW (11.5-15.5) % Plt Count (150-450) k/uL Neutrophils % % Lymphocytes % % Monocytes % % Eosinophils % % Basophils % % Neutrophils # (1.3-7.7) k/uL Lymphocytes # (1.0-4.8) k/uL Monocytes # (0-1.0) k/uL Eosinophils # (0-0.7) k/uL Basophils # (0-0.2) k/uL PT (9.0-12.0) sec INR (<1.2) APTT (22.0-30.0) sec Sodium (137-145) mmol/L Potassium (3.5-5.1) mmol/L Chloride (98-107) mmol/L Carbon Dioxide (22-30) mmol/L Anion Gap mmol/L BUN (9-20) mg/dL Creatinine (0.66-1.25) mg/dL Est GFR (CKD-EPI)AfAm (>60 ml/min/1.73 sqM) Est GFR (CKD-EPI)NonAf (>60 ml/min/1.73 sqM) Glucose (74-99) mg/dL POC Glucose (mg/dL) (75-99) mg/dL POC [employer] Software Specialist ID Plasma Lactic Acid Stevie 1.1 (0.7-2.0) mmol/L Calcium (8.4-10.2) mg/dL Total Bilirubin (0.2-1.3) mg/dL AST (17-59) U/L ALT (21-72) U/L Alkaline Phosphatase (38-126) U/L Total Creatine Kinase 1319 H* (55-170) U/L CK-MB (CK-2) 24.3 H (0.0-2.4) ng/mL CK-MB (CK-2) Rel Index 1.8 Troponin I <0.012 (0.000-0.034) ng/mL Total Protein (6.3-8.2) g/dL Albumin (3.5-5.0) g/dL Amylase (30-110) U/L Lipase (23-300) U/L Urine Color Urine Appearance (Clear) Urine pH (5.0-8.0) Ur Specific [place] (1.001-1.035) Urine Protein (Negative) Urine Glucose (UA) (Negative) Urine Ketones (Negative) Urine Blood (Negative) Urine Nitrite (Negative) Urine Bilirubin (Negative) Urine Urobilinogen (<2.0) mg/dL Ur Leukocyte Esterase (Negative) Urine RBC (0-5) /hpf Urine WBC (0-5) /hpf Ur Squamous Epith Cells (0-4) /hpf Hyaline Casts (0-2) /lpf Urine Mucus (None) /hpf Urine Opiates Screen (NotDetected) Ur Oxycodone Screen (NotDetected) Urine Methadone Screen (NotDetected) Ur Propoxyphene Screen (NotDetected) Ur Barbiturates Screen (NotDetected) U Tricyclic Antidepress (NotDetected) Ur Phencyclidine Scrn (NotDetected) Ur Amphetamines Screen (NotDetected) U Methamphetamines Scrn (NotDetected) U Benzodiazepines Scrn (NotDetected) Urine Cocaine Screen (NotDetected) U Marijuana (THC) Screen (NotDetected) Serum Alcohol mg/dL Blood Type Blood Type Confirm Blood Type Recheck Bld Type Recheck Status Antibody Screen Spec Expiration Date - EKG Data -: EKG Interpreted by Me (EKG shows a flutter rate of 118, QRS 94, QTC 496) - Radiology Data Radiology results: report reviewed (CT brain and C-spine shows right laminal fracture at C7 chest and pelvis x-ray negative for traumatic injury), image reviewed Disposition Clinical Impression: Fracture of lamina of cervical vertebra, Fall Disposition: HOME SELF-CARE Condition: Good Instructions (If sedation given, give patient instructions): Fall Prevention for Older Adults (ED), Soft Cervical Collar (ED), Cervical Fracture (ED) Is patient prescribed a controlled substance at d/c from ED?: No Referrals: Luis Fernando Mendes MD [Primary Care Provider] - 1-2 days
[2019-09-09 19:53] LABS: Basophils % (A) 0 %; Eosinophils # (A) 0.1 k/uL (0-0.7); Eosinophils % (A) 1 %; HCT 51.8 % (39.0-53.0); Lymphocytes # (A) 0.8 k/uL (1.0-4.8); Lymphocytes % (A) 8 %; MCH 31.3 pg (25.0-35.0); MCHC 34.7 g/dL (31.0-37.0); MCV 90.3 fL (80.0-100.0); Mean Platelet Volume 7.3; Monocytes # (A) 0.4 k/uL (0-1.0); Monocytes % (A) 4 %; Neutrophils % (A) 86 %; Platelet Count 177 k/uL (150-450); RBC 5.74 m/uL (4.30-5.90); RDW 12.8 % (11.5-15.5); WBC 9.3 k/uL (3.8-10.6)
--- NOTE | 2019-09-09 20:18 | XR ---
EXAMINATION TYPE: XR pelvis AP view DATE OF EXAM: 09/09/2019 CLINICAL HISTORY: Fall TECHNIQUE: A single AP view of the pelvis is obtained. COMPARISON: None. FINDINGS: Ilioischial and iliopectineal lines are intact. Sacroiliac joints and pubic symphysis are c ongruent. Sacrum arcuate lines are intact bilaterally. Both hips are located with mild degenerative c hanges present at each. Degenerative changes also noted of the lower lumbar spine. IMPRESSION: There is no acute fracture or dislocation in the pelvis.
--- NOTE | 2019-09-09 20:19 | XR ---
EXAMINATION TYPE: XR chest 1V portable DATE OF EXAM: 09/09/2019 COMPARISON: NONE HISTORY: Trauma TECHNIQUE: Single frontal view of the chest is obtained. FINDINGS: There is no focal air space opacity, pleural effusion, or pneumothorax seen. The cardiac silhouette size is within normal limits. The osseous structures are intact. IMPRESSION: No acute process.
[2019-09-09 20:26] LABS: Partial Thromboplastin Time 30.2 sec (22.0-30.0); Prothrombin Time 20.1 sec (9.0-12.0)
[2019-09-09 20:29] LABS: Basophils % (A) 0 %; Eosinophils # (A) 0.1 k/uL (0-0.7); Eosinophils % (A) 1 %; HCT 46.8 % (39.0-53.0); HGB 16.8 gm/dL (13.0-17.5); Lymphocytes # (A) 0.8 k/uL (1.0-4.8); Lymphocytes % (A) 9 %; MCH 32.1 pg (25.0-35.0); MCHC 35.9 g/dL (31.0-37.0); MCV 89.5 fL (80.0-100.0); Monocytes # (A) 0.5 k/uL (0-1.0); Monocytes % (A) 5 %; Neutrophils # (A) 7.6 k/uL (1.3-7.7); Neutrophils % (A) 84 %; Platelet Count 169 k/uL (150-450); RBC 5.22 m/uL (4.30-5.90); RDW 12.8 % (11.5-15.5); WBC 9.1 k/uL (3.8-10.6)
--- NOTE | 2019-09-09 20:30 | CT ---
EXAMINATION TYPE: CT brain soham hemphill DATE OF EXAM: 09/09/2019 COMPARISON: None HISTORY: Pt fell down 4 stairs, hit back of head. Sent from [facility]. C/o Lt side neck pain TECHNIQUE: 1. Axial CT images of the head without contrast. Bone windows and sagittal and coronal reformats were reviewed. 2. Axial CT images of the cervical spine without contrast. Bone windows and sagittal and coronal refo rmats were reviewed. 3. CT DLP: 2109 mGycm Automated exposure control for dose reduction was used. FINDINGS: CT Head: No acute intracranial hemorrhage. Martinez-white differentiation is preserved. The ventricular system is normal in size and morphology. No abnormal extra-axial fluid collections or midline shift of structures. Patent basal cisterns. No depressed or displaced calvarial fracture. Minimal soft tissue swelling over the left parietal sca lp. Intracranial vascular calcifications. Visualized paranasal sinuses and temporal bone structures a re well aerated. The orbits and skull base are unremarkable. CT Cervical Spine: The cervical spine is imaged through T3. Vertebral bodies and facet joints are anatomically aligned. Nondisplaced fracture through the right C7 lamina. Vertebral body heights are maintained. Degenerative changes throughout the cervical spine are greatest in degree at C5-C6 and C6-C7 characte rized by disc height loss, discogenic endplate change, and posterior vertebral body spurring. Multile rocael facet arthropathy. No prevertebral edema or soft tissue abnormality. Lung apices are clear. IMPRESSION: 1. No acute intracranial abnormality. 2. Nondisplaced fracture through the right C7 lamina.
[2019-09-09 20:41] LABS: Creatine Kinase MB 24.3 ng/mL (0.0-2.4); Troponin I <0.012 ng/mL (0.000-0.034)
[2019-09-09 20:44] LABS: Creatine Kinase 1319 U/L (55-170)
[2019-09-09 21:01] LABS: ALT 35 U/L (21-72); AST 50 U/L (17-59); African American GFR (CKD) 54 (>60 ml/min/1.73 sqM); Alcohol <10 mg/dL; Alkaline Phosphatase 79 U/L (38-126); Amylase 54 U/L (30-110); Anion Gap 7 mmol/L; Blood Urea Nitrogen 30 mg/dL (9-20); Calcium 9.3 mg/dL (8.4-10.2); Carbon Dioxide 26 mmol/L (22-30); Chloride 106 mmol/L (98-107); Glucose 138 mg/dL (74-99); Non-African American GFR(CKD) 47 (>60 ml/min/1.73 sqM); Potassium 3.9 mmol/L (3.5-5.1); Sodium 139 mmol/L (137-145); Total Protein 6.9 g/dL (6.3-8.2)
[2019-09-09 21:26] LABS: Appearance,Urine Clear (Clear); Bilirubin,Urine Negative (Negative); Blood,Urine Small (Negative); Color,Urine Yellow; Glucose,Urine (UA) Negative (Negative); Hyaline Casts,Urine 3 /lpf (0-2); Ketones,Urine Negative (Negative); Leukocyte Esterase,Urine Negative (Negative); Mucus,Urine Rare /hpf; Nitrite,Urine Negative (Negative); PH, Urine 5.5 (5.0-8.0); Protein,Urine Negative (Negative); RBC,Urine <1 /hpf (0-5); Specific Gravity,Urine 1.017 (1.001-1.035); Squamous Epithelial Cell,Urine <1 /hpf (0-4); Urobilinogen,Urine <2.0 mg/dL (<2.0); WBC,Urine 1 /hpf (0-5)
[2019-09-09 21:34] LABS: Amphetamine Screen,Urine Not Detected (NotDetected); Barbiturate Screen,Urine Not Detected (NotDetected); Benzodiazepines Screen,Urine Not Detected (NotDetected); Cocaine Screen,Urine Not Detected (NotDetected); Methadone Screen, Urine Not Detected (NotDetected); Opiate Screen,Urine Not Detected (NotDetected); Oxycodone Screen, Urine Not Detected (NotDetected); Phencyclidine Screen,Urine Not Detected (NotDetected); Tricyclic Antidepressant,Urine Not Detected (NotDetected); Urn Cannabinoid Scrn Not Detected (NotDetected)
[2019-09-09 23:24] VITALS: BP 126/91; PULSE 80; TEMP 98.3
== END 2019-09-09 23:10 | disposition home or self-care (01) ==
LOC: EC 18:49
DX: S12.601A Unspecified nondisplaced fracture of seventh cervical vertebra, initial encounter for closed fracture (principal); I10 Essential (primary) hypertension; I47.1 Supraventricular tachycardia; G47.30 Sleep apnea, unspecified; H40.9 Unspecified glaucoma; J30.1 Allergic rhinitis due to pollen; M19.90 Unspecified osteoarthritis, unspecified site; M10.9 Gout, unspecified; Z79.01 Long term (current) use of anticoagulants; Z91.048 Other nonmedicinal substance allergy status; Z79.899 Other long term (current) drug therapy; Z99.89 Dependence on other enabling machines and devices; Z86.718 Personal history of other venous thrombosis and embolism; W10.8XXA Fall (on) (from) other stairs and steps, initial encounter; Y92.009 Unspecified place in unspecified non-institutional (private) residence as the place of occurrence of the external cause
CPT/HCPCS: 36415; 93005; 86900; 86901; 80053; 82150; 82550; 82553; 83605; 83690; 84484; 85025; 85610; 85730; 86850; 81001; 80306; 72170; 71045; 72125; 70450; 99284; 96360; 96361 ×3; G0480; 80320; 96372

== ENCOUNTER → 2020-05-09 | Outpatient (CLI) | payer MEDICARE ==
--- NOTE | 2020-05-09 22:08 | SFUN ---
SLEEP CENTER FOLLOW UP NOTE DATE OF SERVICE: 05/09/2020 This patient is a 74-year-old gentleman who has been followed in Sleep Center for treatment of obstructive sleep apnea-hypopnea syndrome. The patient continues to use his CPAP equipment successfully every night without significant problems related to mask fitting, pressure or humidification. [place] Sleepiness Scale today is 2. I checked in his BiPAP unit. Maximal inspiratory pressure is 23, expiratory pressure minimal 10, pressure support 4. Average pressure 14.6/10.6. Usage is 100% for more than 4 hours with average usage 8.2 hours per night. Leak is only 6 L/minute, which is absolutely normal. Apnea-hypopnea index only 0.4, which is perfect. MEDICATIONS: Colchicine, warfarin, metoprolol, probenecid, hydrochlorothiazide, vitamins. PHYSICAL EXAMINATION: GENERAL: A pleasant patient in no distress. VITAL SIGNS: BP 112/75, HR 96, RR 16, height 6 feet zero inches, weight 360, which is 4 pounds less than during previous visit. BMI 48.8, temperature 98.0. Oxygen saturation at room air 96%. HEENT: PERRLA, EOMI. Evaluation of oropharynx showed tongue protrudes midline. Low position of soft palate. Mallampati III to IV. NECK: Supple. No JVD. Thyroid is not palpable. Neck measures 19-1/2 inches in circumference. LUNGS: Clear to percussion and to auscultation. Good air exchange. No wheezing or rhonchi. HEART: S1, S2 regular. No murmurs, gallops or rubs. ABDOMEN: Obese. EXTREMITIES: No clubbing or cyanosis. RNP: Awake, alert, and oriented X3. Cranial nerves 2 to 7 intact. There is no fasciculation or atrophy. noted. No focal deficits observed. IMPRESSION: 1. Severe obstructive sleep apnea-hypopnea syndrome, AHI 78.4. Respiration under full control with BiPAP. The patient demonstrated 100% compliance with treatment. 2. History of supraventricular tachycardia. 3. History of atrial flutter. 4. Status post cardioversion. 5. Allergies. 6. Obesity. 7. Back problems. 8. Neck problems. 9. Status post right foot deep venous thrombosis. 10.Status post bilateral surgery for carpal tunnel syndrome. 11.Status post tonsillectomy. 12.Status post right knee arthroscopic surgery. 13.Status post several eye surgeries for increased eye pressure. PLAN: 1. Patient will continue to use PAP equipment every night for the whole night. 2. Sleep hygiene with regular time in bed for at least 7-1/2 to 8 hours. 3. Precautions related to driving. No driving if feeling sleepiness. 4. I will maintain all necessary prescription for PAP supplies including mask, tube, filters. 5. Watching weight. 6. No driving if feeling sleepiness. 7. Follow-up visit in 6 months or earlier if patient has any problems. Thank you very much for allowing me to participate in the management of your patient. Sincerely, Easton Vann MD, PhD, FAASM Diplomat of [employer] [employer] Director [employer] of [facility] [place] MMODL / AKANKSHAN: [id number] /
== END | disposition home or self-care (01) ==
LOC: SLEEP 13:13
PROVIDERS: ATTEND Internal Medicine
DX: G47.33 Obstructive sleep apnea (adult) (pediatric) (principal); M53.80 Other specified dorsopathies, site unspecified; M43.8X2 Other specified deforming dorsopathies, cervical region; M43.8X9 Other specified deforming dorsopathies, site unspecified; E66.9 Obesity, unspecified; Z87.39 Personal history of other diseases of the musculoskeletal system and connective tissue; Z86.718 Personal history of other venous thrombosis and embolism; Z99.89 Dependence on other enabling machines and devices; Z98.890 Other specified postprocedural states

== ENCOUNTER → 2020-10-14 | Outpatient (CLI) | payer MEDICARE | END | disposition home or self-care (01) | LOC: LABWHC1 13:09 | PROVIDERS: ATTEND Family Medicine | DX: J02.9 Acute pharyngitis, unspecified (principal); R09.81 Nasal congestion; Z20.822 Contact with and (suspected) exposure to COVID-19 | CPT/HCPCS: U0003; C9803; U0005 ==

== ENCOUNTER → 2020-11-28 | Outpatient (CLI) | payer MEDICARE ==
--- NOTE | 2020-11-28 16:44 | SFUN ---
SLEEP CENTER FOLLOW UP NOTE DATE OF SERVICE: 11/28/2020 This is a 74-year-old gentleman who has been followed in Sleep Center for treatment of extremely severe obstructive sleep apnea-hypopnea syndrome. The patient continues to use his CPAP equipment every night for the whole night and he needs to replace his full- face mask. I checked his BiPAP unit. It is in automatic regimen with maximum inspiratory pressure 23, minimal expiratory pressure 10 cm of water with a pressure support of 4. The patient is using it every night, 8.7 hours per night. Leak is 13 L/minute, which is acceptable. Apnea-hypopnea index is only 0.5, which is absolutely perfect. MEDICATIONS: 1. Warfarin 5 mg once a day. 2. Metoprolol 50 mg twice a day. 3. Probenecid 500 mg twice a day. 4. Colchicine 0.6 mg twice a day. 5. Hydrochlorothiazide 12.5 mg every second day. 6. Cetirizine 10 mg once a day. 7. Loratadine 10 mg once a day. 8. Glucosamine supplement. PHYSICAL EXAMINATION: GENERAL: A pleasant patient in no distress. VITAL SIGNS: BP 136/83, HR 88, RR 18, height 6 feet 1 inch, weight 370.2, which is 10 pounds more than during his last visit, temperature 92.3, oxygen saturation at room air 96%. HEENT: LAURYNRZEINAB, EOMI. Evaluation of oropharynx showed tongue protrudes midline. Low position of soft palate. Mallampati III to IV. NECK: Supple. No JVD. Thyroid is not palpable. LUNGS: Clear to percussion and to auscultation. Good air exchange. No wheezing or rhonchi. HEART: S1, S2 regular. No murmurs, gallops or rubs. ABDOMEN: Obese. EXTREMITIES: No clubbing or cyanosis. DIGITAL INTERN: Awake, alert, and oriented X3. Cranial nerves 2 to 7 intact. There is no fasciculation or atrophy. noted. No focal deficits observed. IMPRESSION: 1. Severe obstructive sleep apnea-hypopnea syndrome; AHI 78.4, under full control with BiPAP. The patient demonstrated 100% compliance with treatment, benefitting from treatment. 2. History of supraventricular tachycardia. 3. History of atrial flutter. 4. Status post cardioversion. 5. Allergies. 6. Obesity. 7. Back problems. 8. Neck problems. 9. Status post right foot DVT. 10.Status post bilateral surgery for carpal tunnel syndrome. 11.Status post tonsillectomy. 12.Status post right knee arthroscopic surgery. 13.Status post several eye surgeries for increased eye pressure. PLAN: 1. Patient will continue to use his BiPAP equipment with the same regimen. 2. Prescription for a full-face AirFit F20 large-sized mask. 3. Sleep hygiene with regular time in bed for at least 7-1/2 to 8 hours. 4. Precautions related to driving. No driving if feeling sleepiness. 5. I will maintain all necessary prescription for PAP supplies including mask, tube, filters. 6. Watching weight. 7. No driving if feeling sleepiness. 8. Follow-up visit in 6 months or earlier if patient has any problems. Thank you very much for allowing me to participate in the management of your patient. Sincerely, Easton Vann MD, PhD, FAASM Diplomat of [place] [employer] [place] [employer] Salesperson of [facility] [place] MMODL / AKANKSHAN: [id number] /
== END | disposition home or self-care (01) ==
LOC: SLEEP 10:59
PROVIDERS: ATTEND Internal Medicine
DX: G47.33 Obstructive sleep apnea (adult) (pediatric) (principal); E66.9 Obesity, unspecified; M54.2 Cervicalgia; Z86.79 Personal history of other diseases of the circulatory system; Z98.890 Other specified postprocedural states; Z79.01 Long term (current) use of anticoagulants; Z79.899 Other long term (current) drug therapy; Z79.2 Long term (current) use of antibiotics

== ENCOUNTER → 2021-05-02 | Outpatient (CLI) | payer MEDICARE ==
--- NOTE | 2021-05-02 12:23 | XR ---
EXAMINATION TYPE: XR foot complete RT DATE OF EXAM: 05/02/2021 COMPARISON: NONE HISTORY: Pain TECHNIQUE: Three views are submitted. FINDINGS: There is significant arthropathy of the tarsal metatarsal joint and first MTP joint. Large calcaneal plantar spur. Osseous structures grossly intact with no acute displaced fracture. There are 2 small r adiopaque densities near the ball (plantar surface ) which is indeterminate. IMPRESSION: 1. 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 2. There is a radiopaque density near the ball of foot along the plantar surface digitally. This is r elated to calcification or foreign body.
== END | disposition home or self-care (01) ==
LOC: RADXRMAIN 11:57
PROVIDERS: ATTEND Podiatrist Foot Surgery
DX: M12.871 Other specific arthropathies, not elsewhere classified, right ankle and foot (principal)

== ENCOUNTER → 2021-06-05 | Outpatient (CLI) | payer MEDICARE ==
--- NOTE | 2021-06-05 18:12 | SFUN ---
SLEEP CENTER FOLLOW UP NOTE DATE OF SERVICE: 06/05/2021 This 75-year-old gentleman has been followed in Sleep Center for treatment of obstructive sleep apnea-hypopnea syndrome. Patient continues to use his BiPAP equipment every night. He is getting his supplies on time. He reported that he feels that there is a leak from his full-face mask sometimes into the eye area and sometimes under the chin. I checked his BiPAP unit. Maximal inspiratory pressure is 23, minimal expiratory pressure 10, pressure support 4, average pressure 14.5/10.5. Usage 30/30 nights for more than 4 hours, average 8.4 hours per night. Leak is quite high at 48 L/minute. Apnea-hypopnea index, though, is totally normal at 0.4. MEDICATIONS: 1. Warfarin 5 mg daily. 2. Carvedilol 12.5 mg twice a day. 3. Metoprolol 50 mg twice a day. 4. Probenecid 500 mg twice a day. 5. Colchicine 0.6 mg twice a day. 6. Hydrochlorothiazide 12.5 mg every second day. 7. Cetirizine 10 mg once a day. 8. Loratadine 10 mg once a day. PHYSICAL EXAMINATION: GENERAL: Pleasant patient in no distress. VITAL SIGNS: BP 138/84, HR 94, RR 15, height 6 feet 0 inches, weight 368.8, about the same weight as during previous visit, BMI 49.9, temperature 98.3, oxygen saturation at room air 94%. HEENT: PERRLA, EOMI, evaluation of oropharynx showed tongue protrudes midline. Low position of soft palate; Mallampati III to IV. NECK: Supple, no JVD. Thyroid is not palpable. LUNGS: Clear to percussion and to auscultation. Good air exchange. No wheezing or rhonchi. HEART: S1, S2 regular. No murmurs, gallops, or rubs. ABDOMEN: Obese. EXTREMITIES: No clubbing or cyanosis. EVENT EXECUTIVE: Awake, alert, and oriented X3. Cranial nerves 2 to 7 intact. There is no fasciculation or atrophy. noted. No focal deficits observed. IMPRESSION: 1. Severe obstructive sleep apnea-hypopnea syndrome; apnea-hypopnea index 78.4. The patient demonstrated 100% compliance with treatment, benefitting from treatment. Significant leak from the full-face mask. 2. History of supraventricular tachycardia. 3. History of atrial flutter. 4. Status post cardioversion. 5. Allergies. 6. Morbid obesity. BMI 49.9. 7. Back problems. 8. Neck problems. 9. Status post right foot deep vein thrombosis. 10.Status post bilateral surgery for carpal tunnel syndrome. 11.Status post tonsillectomy. 12.Status post right knee arthroscopic surgery. 13.Status post several eye surgeries for increased eye pressure. PLAN: 1. Prescription for DreamWear [id number] full-face mask. 2. Patient will continue to use PAP equipment every night for the whole night. 3. Sleep hygiene with regular time in bed for at least 7-1/2 to 8 hours. 4. Precautions related to driving. No driving if feeling sleepiness. 5. I will maintain all necessary prescription for PAP supplies including mask, tube, filters. 6. Watching weight. 7. Follow-up visit in 6 months or earlier if patient has any problems. Thank you very much for allowing me to participate in the management of your patient. Sincerely, Easton Vann MD, PhD, FAASM Diplomat of [employer] Sleep Medicine Board of [employer] Core Stacker of [facility] [place] MMODL / IJN: [id number] /
== END ==
LOC: SLEEP 13:12
PROVIDERS: ATTEND Internal Medicine
DX: G47.33 Obstructive sleep apnea (adult) (pediatric) (principal); M53.80 Other specified dorsopathies, site unspecified; M53.82 Other specified dorsopathies, cervical region; E66.01 Morbid (severe) obesity due to excess calories; Z68.42 Body mass index [BMI] 45.0-49.9, adult; Z86.79 Personal history of other diseases of the circulatory system; T78.40XA Allergy, unspecified, initial encounter; I82.401 Acute embolism and thrombosis of unspecified deep veins of right lower extremity; Z98.890 Other specified postprocedural states; Z90.09 Acquired absence of other part of head and neck; Z99.89 Dependence on other enabling machines and devices; Z79.01 Long term (current) use of anticoagulants

== ENCOUNTER → 2021-12-11 | Outpatient (CLI) | payer MEDICARE ==
--- NOTE | 2021-12-11 16:10 | SFUN ---
SLEEP CENTER FOLLOW UP NOTE DATE OF SERVICE: 12/11/2021. 76-year-old gentleman has been followed in Sleep Center for treatment of obstructive sleep apnea-hypopnea syndrome. Patient continues to use his BiPAP equipment every night, getting his supplies in time replacing his air filter. He likes his mask now more than previous, he is using Dream Wear under the nose fullface mask which I recommend him last time. I checked his BiPAP unit. Maximal inspiratory pressure 23, minimal expiratory pressure 10, pressure support 4, average pressure 14.7/10.7, usage 30/30 nights for more than 4 hours, average 8.4 hours per night. Leak is 37 L per minute which is slightly high, but apnea-hypopnea index is only 0.8 which is normal. MEDICATIONS: Warfarin 5 mg once a day, metoprolol 200 mg daily, 500 mg twice a day, Colchicine 0.6 mg twice a day, hydrochlorothiazide 12.5 mg every other day. PHYSICAL EXAMINATION: GENERAL: Patient in no distress. BP 142/86, HR 72, RR 16, height 6 feet, weight 364 pounds. Body mass index 49.3. The patient lost 4 pounds since previous visit. Temperature 97.6, oxygen saturation at room air 94%. Low position of soft palate, Mallampati 3-4. NECK: Supple, no JVD. Thyroid is not palpable. LUNGS: Clear to percussion and to auscultation. Good air exchange. No wheezing or rhonchi. HEART: S1, S2 regular. No murmurs, gallops, or rubs. ABDOMEN: Obese. Soft and nontender. Bowel sounds are present. No organomegaly appreciated. EXTREMITIES: No clubbing or cyanosis. PROPERTY CLERK: Awake, alert, and oriented X3. Cranial nerves 2 to 7 intact. There is no fasciculation or atrophy. noted. No focal deficits observed. IMPRESSION: 1. Severe obstructive sleep apnea-hypopnea syndrome. Original apnea-hypopnea index 78.4. The patient demonstrated a great compliance with BiPAP therapy, benefitting from treatment, normal respiration on BiPAP. High leak from a full-face mask, but again breathing is normal. 2. History of supraventricular tachycardia. 3. History of atrial flutter status post cardioversion. 4. Allergies. 5. Morbid obesity. 6. Back problems. 7. Neck problems. 8. Status post right foot deep venous thrombosis. 9. Status post bilateral surgery for carpal tunnel syndrome. 10.Status post tonsillectomy. 11.Status post right knee arthroscopic surgery. 12.Status post several eye surgeries for increased eye pressure. PLAN: 1. Patient will continue to use PAP equipment every night for the whole night. 2. Sleep hygiene with regular time in bed for at least 7-1/2 to 8 hours. 3. Precautions related to driving. No driving if feeling sleepiness. 4. I will maintain all necessary prescription for PAP supplies including mask, tube, filters. 5. Watching weight. 6. Follow-up visit in 6 months or earlier if patient has any problems. Thank you very much for allowing me to participate in management of your patient. Sincerely, Easton Vann MD, PhD, FAASM Diplomat of [employer] Sleep Medicine Board of [employer] Erector of [facility] [place] MMODL / IJN: [id number] /
== END ==
LOC: SLEEP 13:29
PROVIDERS: ATTEND Internal Medicine
DX: G47.33 Obstructive sleep apnea (adult) (pediatric) (principal); E66.01 Morbid (severe) obesity due to excess calories; M54.89 Other dorsalgia; M54.2 Cervicalgia; Z86.718 Personal history of other venous thrombosis and embolism; Z87.39 Personal history of other diseases of the musculoskeletal system and connective tissue; Z90.09 Acquired absence of other part of head and neck; Z98.890 Other specified postprocedural states; Z86.69 Personal history of other diseases of the nervous system and sense organs; Z99.89 Dependence on other enabling machines and devices; Z86.79 Personal history of other diseases of the circulatory system; T78.40XA Allergy, unspecified, initial encounter; Z79.01 Long term (current) use of anticoagulants; Z68.42 Body mass index [BMI] 45.0-49.9, adult; Z91.09 Other allergy status, other than to drugs and biological substances

== ENCOUNTER → 2023-04-16 | Outpatient (CLI) | payer MEDICARE ==
--- NOTE | 2023-04-16 12:16 | US ---
EXAMINATION TYPE: US liver DATE OF EXAM: 04/16/2023 COMPARISON: NONE CLINICAL INDICATION: Male, 77 years old with history of E80.7 ELEVATED BILIRUBIN; TECHNIQUE: Multiple sonographic images of the right upper quadrant are obtained. FINDINGS: EXAM MEASUREMENTS: Liver Length: 17.9 cm. Normal less than 15.5 cm Gallbladder Wall: 0.3 cm CBD: 0.6 cm Right Kidney: 11.8 x 5.1 x 6.0 cm BIG DATA DEVELOPER NOTES: Severely, morbidly obese pt- difficult to scan Pancreas: Body wnl, head and tail obscured by overlying bowel gas and large pt body habitus Liver: Heterogeneous, difficult to penetrate right lobe Gallbladder: wnl Evidence for sonographic Colmenares's sign: No CBD: wnl Right Kidney: No evidence of hydro Incidental finding, possible right pleural effusion IMPRESSION: 1. No acute right upper quadrant abnormality. 2. Exam limited due to body habitus. 3. Small right pleural effusion. 4. Hepatomegaly
== END | disposition home or self-care (01) ==
LOC: RADUSWWP 08:19
PROVIDERS: ATTEND Family Medicine
DX: E80.7 Disorder of bilirubin metabolism, unspecified (principal); J90 Pleural effusion, not elsewhere classified; R16.0 Hepatomegaly, not elsewhere classified
CPT/HCPCS: 76705

== ENCOUNTER → 2023-07-27 | Outpatient (CLI) | payer MEDICARE ==
--- NOTE | 2023-07-27 14:43 | US ---
EXAMINATION TYPE: US venous doppler duplex LE DATE OF EXAM: 07/27/2023 2:33 PM COMPARISON: LOWER EXTREMITY VENOUS INSUFFICIENCY CLINICAL INDICATION: Male, 77 years old with history of I73.9 PERIPHERAL VASCULAR DISEASE, UNSPECIFIE D; PVD SIDE PERFORMED: BILATERAL 1) Color flow is present and patency is documented in the following vessels. No DVT or SVT is noted . Common Femoral Vein Deep Femoral Vein Femoral Vein Popliteal Vein Proximal Calf Veins Greater Saph Vein Upper Small Saph Vein 2) There is venous reflux noted at the following venous levels: no 3) Incompetent perforators are noted at these levels: no IMPRESSION: No sonographic evidence for venous reflux. CLINICAL INDICATION: Male, 77 years old with history of I73.9 PERIPHERAL VASCULAR DISEASE, UNSPECIFIE D; SIDE PERFORMED: TECHNIQUE: The lower extremity deep venous system is examined utilizing real time linear array sonog margo with graded compression, doppler sonography and color-flow sonography. VESSELS IMAGED: Common Femoral Vein Deep Femoral Vein Greater Saphenous Vein * Femoral Vein Popliteal Vein Small Saphenous Vein * Proximal Calf Veins (* superficial vessels) Right Leg: No evidence for DVT Left Leg: No evidence for DVT IMPRESSION: Grayscale, color doppler, spectral doppler imaging performed of the deep veins of the lo wer extremities. There is normal flow, compressibility, vascular waveforms.
--- NOTE | 2023-07-27 14:58 | US ---
EXAMINATION TYPE: US arterial LE single level DATE OF EXAM: 07/27/2023 2:14 PM CLINICAL INDICATION: Male, 77 years old with history of I73.9 PERIPHERAL VASCULAR DISEASE, UNSPECIFIE D; PVD History of: Smoker: No Hypertension: Yes Diabetic: No Hyperlipidemia: Yes TIA/CVA: No Previous Vascular Surgery: No CAD: No [place]: No Vascular Ulcers: Right Claudication: No Gangrene: No Doppler Waveforms: Right: Multiphasic Left: Multiphasic Right Brachial Pressure: 119 Left Brachial Pressure: 156 Ankle-Brachial Indices: Right: 0.96 Left: 1.24 Toe Brachial Indices: Right: 1.49 Left: CNO IMPRESSION: Normal left ankle brachial index with borderline abnormal right ankle brachial index sug gesting mild peripheral arterial disease of the right lower extremity.
== END | disposition home or self-care (01) ==
LOC: RADUSWWP 12:52
PROVIDERS: ATTEND Podiatrist
DX: L97.211 Non-pressure chronic ulcer of right calf limited to breakdown of skin (principal); I73.9 Peripheral vascular disease, unspecified; I10 Essential (primary) hypertension; J44.9 Chronic obstructive pulmonary disease, unspecified
CPT/HCPCS: 93922; 93970

== ENCOUNTER → 2023-09-10 | Outpatient (CLI) | payer MEDICARE ==
[2023-09-10 18:25] LABS: Basophils # (A) 0.06 X 10*3/uL (0.00-0.10); Basophils % (A) 1.3 %; Eosinophils # (A) 0.22 X 10*3/uL (0.04-0.35); Eosinophils % (A) 4.8 %; HCT 43.8 % (39.6-50.0); HGB 14.3 g/dL (13.0-17.0); Lymphocytes # (A) 1.04 X 10*3/uL (0.90-5.00); Lymphocytes % (A) 22.9 %; MCH 32.7 pg (27.0-32.0); MCHC 32.6 g/dL (32.0-37.0); MCV 100.2 FL (80.0-97.0); Mean Platelet Volume 10.8 FL (9.5-12.2); Monocytes # (A) 0.58 X 10*3/uL (0.20-1.00); Monocytes % (A) 12.7 %; NRBC Per 100 WBC 0 X 10*3/uL (0.00-0.01); Neutrophils # (A) 2.63 X 10*3/uL (1.80-7.70); Neutrophils % (A) 57.9 %; Platelet Count 148 X 10*3/uL (140-440); RBC 4.37 X 10*6/uL (4.40-5.60); RDW 14.8 % (11.5-14.5); WBC 4.55 X 10*3/uL (4.50-10.00)
[2023-09-10 18:59] LABS: % Iron Saturation 37.32 (15.00-50.00); ALT 23 U/L (10-49); AST 32 U/L (14-35); Albumin 3.9 g/dL (3.8-4.9); Albumin/Globulin Ratio 1.44 Ratio (1.60-3.17); Alkaline Phosphatase 161 U/L (41-126); BUN/Creat Ratio 18.18 Ratio (12.00-20.00); Blood Urea Nitrogen 30.9 mg/dL (9.0-27.0); Calcium 10.2 mg/dL (8.7-10.3); Carbon Dioxide 27.6 mmol/L (21.6-31.8); Chloride 104 mmol/L (96-109); Globulin 2.7 g/dL (1.6-3.3); Glucose 94 mg/dL (70-110); Iron 106 UG/DL (65-175); Potassium 5.5 mmol/L (3.5-5.5); Sodium 143 mmol/L (135-145); Total Bilirubin 2.3 mg/dL (0.3-1.2); Total Iron Binding Capacity 284 UG/DL (228-460); Total Protein 6.6 g/dL (6.2-8.2)
[2023-09-10 19:30] LABS: Ceruloplasmin 31.2 mg/dL (20.0-60.0)
[2023-09-10 19:40] LABS: Hepatitis B Surface Antigen Nonreactive; Hepatitis C IgG Antibody Nonreactive
[2023-09-10 23:01] LABS: Albumin 3.9 g/dL (3.8-4.9); Protein, Total 6.7 g/dL (6.2-8.2)
== END | disposition home or self-care (01) ==
LOC: LABWHC1 12:16
PROVIDERS: ATTEND Internal Medicine Gastroenterology
DX: R74.8 Abnormal levels of other serum enzymes (principal)
CPT/HCPCS: 36415; 80053; 82103; 82390; 82728; 83516; 83540; 83550; 84165; 85025; 86038; 86039; 86803; 87340

== ENCOUNTER → 2023-09-17 | Outpatient (CLI) | payer MEDICARE | END | disposition home or self-care (01) | LOC: LABWHC1 11:59 | PROVIDERS: ATTEND Internal Medicine Gastroenterology | DX: R74.8 Abnormal levels of other serum enzymes (principal) | CPT/HCPCS: 36415 ==

== ENCOUNTER → 2023-10-19 | Outpatient (CLI) | payer MEDICARE | END | disposition home or self-care (01) | LOC: LABWHC1 16:13 | PROVIDERS: ATTEND Internal Medicine Gastroenterology | DX: R74.8 Abnormal levels of other serum enzymes (principal) | CPT/HCPCS: 36415; 83516 ==

== ENCOUNTER → 2023-10-28 | Outpatient (CLI) | payer MEDICARE ==
--- NOTE | 2023-10-28 13:57 | P.PN ---
Subjective DATE: 10/28/2023 FOLLOW UP VISIT. Patient with obstructive sleep apnea hypopnea syndrome return to sleep center for follow-up visit. Information from previous visit have been reviewed. Patient is using PAP equipment every night for the whole night, getting PAP supplies in time. The patient does not have significant problems with the mask, PAP unit and humidification. [place] sleepiness scale is 5, which is normal. I checked information from PAP unit. PAP unit pressure maximal inspiratory pressure 23, minimal expiratory pressure 10, pressure-support 4, average pressure 14.3 over 10.3 cm H2O. Usage is 100 % for more then 4 hours, average 8.6 hours per night. Leak is significantly increased to 58 l/m. Apnea Hypopnea Index is 1.6, which is normal. MEDICATIONS:1. Warfarin 2. Metoprolol 3. Hydrochlorothiazide 4. Probenecid During physical exam: GENERAL: A pleasant patient without any distress. VITAL SIGNS: BP 114/74, HR 87, RR 20, weight 339.0, temperature 97.8, oxygen saturation at room air 97 % . HEENT: PERRLA, EOMI.low position of soft palate, Mallapati 3-4 . NECK: Supple. No JVD. LUNGS: Clear to percussion and to auscultation. Good air exchange. No wheezing or rhonchi. HEART: S1, S2 regular. ABDOMEN: Soft and nontender. Obese EXTREMITIES: No clubbing or cyanosis. TELESCOPE OPERATOR: Awake, alert, and oriented x3. No focal deficit. Impressions: 1. Obstructive sleep apnea-hypopnea syndrome. Patient demonstrated great compliance with treatment, benefiting from treatment. 2. Obesity, patient lost 27 pounds since previous visit, presently body mass index 45.8. 3. History of atrial flutter, status post cardioversion. 4. History of supraventricular tachycardia. 5. Status post DVT of the right foot. 6. Back of neck problems. 7. Status post tonsillectomy. 8. Status post several surgeries for increased eye pressure. 9. Status post right knee arthroscopic surgery. Plan: 1. Continue using PAP equipment every night for the whole night. 2. To change air filter at least 1-2 times per month. 3. PAP unit should stay lower then position of the head. 4. Advised patient to remove all remaining water from humidifier canister daily and make it dry after each usage. Refill canister with fresh distilled water before each usage. 5. Sleep hygiene with regular time in bed for at least 8 hours. 6. Precautions related to driving. No driving if feel any sleepiness. 7. I will maintain prescription for PAP supplies including mask, tube, filters. 8. Watching and continue losing weight. 9. Follow up visit in 6 months or earlier if patient has any problems. Thank you very much for allowing me to participate in the management of your patient. Easton Vann MD, PhD, FAASM. Diplomat of [employer], Sleep Medicine Board by [employer] Overnight Associate of [facility] [place]
== END ==
LOC: 3 N SLEEP 13:23
PROVIDERS: ATTEND Internal Medicine
DX: G47.33 Obstructive sleep apnea (adult) (pediatric) (principal); E66.9 Obesity, unspecified; I48.92 Unspecified atrial flutter; T81.89XA Other complications of procedures, not elsewhere classified, initial encounter; M54.2 Cervicalgia; Z98.890 Other specified postprocedural states; Z86.718 Personal history of other venous thrombosis and embolism; Z90.89 Acquired absence of other organs; Z99.89 Dependence on other enabling machines and devices; Z68.42 Body mass index [BMI] 45.0-49.9, adult; Z79.899 Other long term (current) drug therapy; Z79.01 Long term (current) use of anticoagulants; Z91.09 Other allergy status, other than to drugs and biological substances; Z91.048 Other nonmedicinal substance allergy status
CPT/HCPCS: 99212

== ENCOUNTER 2024-03-17 16:53 | Emergency (ER) | payer MEDICARE ==
--- NOTE | 2024-03-17 17:09 | ED ---
Male Urogenital HPI - General Chief complaint: Urogenital Stated complaint: Blood in Urine Time Seen by Provider: 03/17/24 17:09 Source: patient, RN notes reviewed Mode of arrival: wheelchair Limitations: no limitations - History of Present Illness Initial comments: This is a 78-year-old male with a history of atrial fibrillation, on warfarin who presents emergency department complaint of hematuria. Patient states that he contacted his primary care office this morning, Dr. Mendes, he was recommended to the emergency department for further evaluation. Patient states that the is also an increase in urinary frequency and urgency over the past week as well. Patient states that over the past 2 weeks urine has been cloudy. Patient denies abdominal pain, back or flank pain, nausea, vomiting, fevers. Patient endorses an episode of diarrhea yesterday. Patient has a history of kidney stones. Denies recent antibiotic use. - Related Data Home Medications Medication Instructions Recorded Confirmed Cholecalciferol [Vitamin D3 (25 1,000 unit PO DAILY 07/09/15 12/17/17 Mcg = 1000 Iu)] Glucosamine Sulfate 1,000 mg PO DAILY 07/09/15 12/17/17 Probenecid 500 mg PO DAILY 07/09/15 12/17/17 Warfarin [Coumadin] 5 mg PO DAILY 07/09/15 12/17/17 Metoprolol Tartrate [Lopressor] 50 mg PO BID 12/14/17 12/17/17 Oseltamivir [Tamiflu] 75 mg PO Q12HR 12/14/17 12/17/17 Previous Rx's Medication Instructions Recorded Indomethacin [Indocin] 50 mg PO TID 3 Days #9 capsule 05/20/19 Ciprofloxacin HCl [Cipro] 500 mg PO Q12HR 12 Days #24 tab 03/17/24 Allergies Allergy/AdvReac Type Severity Reaction Status Date / Time DUST, MOLD Allergy SNEEZING, Uncoded 09/09/19 18:55 RHINITIS POLLEN Allergy SNEEZING, Uncoded 09/09/19 18:55 RHINITIS Review of Systems ROS Statement: Those systems with pertinent positive or pertinent negative responses have been documented in the HPI. ROS Other: All systems not noted in ROS Statement are negative. Past Medical History Past Medical History: Atrial Fibrillation, Deep Vein Thrombosis (DVT), Eye Disorder, Hyperlipidemia, Hypertension, Osteoarthritis (OA), Sleep Apnea/CPAP/BIPAP, Supraventricular Tachycardia (SVT) Additional Past Medical History / Comment(s): HX MALARIA. GOUT. POSS TOMMY- PARKINSON WHITE SYNDROME. UNABLE TO TOLERATE CPAP. GLAUCOMA, HEMORRHOIDS. PRE-CA LESIONS ON SCALP. GLAUCOMA, History of Any Multi-Drug Resistant Organisms: None Reported Past Surgical History: Orthopedic Surgery, Tonsillectomy Additional Past Surgical History / Comment(s): TONSILS X2. JEANE EYES FOR GLAUCOMA , RT KNEE-ARTHROSCOPIC , BILATERAL CARPAL TUNNEL RELEASE Past Anesthesia/Blood Transfusion Reactions: No Reported Reaction Past Psychological History: No Psychological Hx Reported Past Alcohol Use History: None Reported Past Drug Use History: None Reported - Past Family History Mother Family Medical History: Cancer Father Family Medical History: Cancer General Exam Limitations: no limitations General appearance: alert, in no apparent distress Head exam: Present: atraumatic, normocephalic, normal inspection Eye exam: Present: normal appearance, PERRL, EOMI. Absent: scleral icterus, conjunctival injection, periorbital swelling ENT exam: Present: normal exam, mucous membranes moist Neck exam: Present: normal inspection. Absent: tenderness, meningismus, lymphadenopathy Respiratory exam: Present: normal lung sounds bilaterally. Absent: respiratory distress, wheezes, rales, rhonchi, stridor Cardiovascular Exam: Present: regular rate, irregular rhythm (a. fib), normal heart sounds. Absent: systolic murmur, diastolic murmur, rubs, gallop, clicks GI/Abdominal exam: Present: soft, normal bowel sounds. Absent: distended, tenderness, guarding, rebound, rigid Extremities exam: Present: normal inspection, full ROM, normal capillary refill. Absent: tenderness, pedal edema, joint swelling, calf tenderness Back exam: Present: normal inspection Neurological exam: Present: alert, oriented X3, CN II-XII intact Psychiatric exam: Present: normal affect, normal mood Skin exam: Present: warm, dry, intact, normal color. Absent: rash Course Vital Signs 03/17/24 03/17/24 03/17/24 16:55 17:11 19:16 Temperature 97.9 F 97.4 F L Pulse Rate 91 90 77 Respiratory 20 Rate Blood Pressure 144/81 124/74 127/84 O2 Sat by Pulse 96 97 99 Oximetry 03/17/24 19:33 Temperature Pulse Rate 75 Respiratory 16 Rate Blood Pressure 127/84 O2 Sat by Pulse 100 Oximetry Medical Decision Making - Medical Decision Making Was pt. sent in by a medical professional or institution (LULY Whaley, [employer], urgent care, hospital, or longterm...) When possible be specific @ -Was advised by his primary care provider to report to the emergency department for further evaluation of hematuria Did you speak to anyone other than the patient for history (EMS, parent, family, police, friend...)? What history was obtained from this source @ -No Did you review nursing and triage notes (agree or disagree)? Why? @ -I reviewed and agree with nursing and triage notes Were old charts reviewed (outside hosp., previous admission, EMS record, old EKG, old radiological studies, urgent care reports/EKG's, longterm records)? Report findings @ -No old charts were reviewed Differential Diagnosis (chest pain, altered mental status, abdominal pain women, abdominal pain men, vaginal bleeding, weakness, fever, dyspnea, syncope, headache, dizziness, GI bleed, back pain, seizure, CVA, palpatations, mental health, musculoskeletal)? @ -Urinary tract infection, hemorrhagic cystitis, pyelonephritis, ne phrolithiasis, this list is not all inclusive. EKG interpreted by me (3pts min.). @ -none X-rays interpreted by me (1pt min.). @ -None done CT interpreted by me (1pt min.). @ -None done U/S interpreted by me (1pt. min.). @ -None done What testing was considered but not performed or refused? (CT, X-rays, U/S, labs)? Why? @ -CT imaging was considered but deferred at this time due to patient not exhi biting abdominal pain, abdominal exam benign. What meds were considered but not given or refused? Why? @ -None Did you discuss the management of the patient with other professionals (professionals i.e. LULY Whaley, [employer] DRIVER, lab, RT, psych nurse, social work specialist, titrator, teacher, licensed mortgage loan officer, child support case officer)? Give summary @ -No Was smoking cessation discussed for >3mins.? @ -No Was critical care preformed (if so, how long)? @ -No Were there social determinants of health that impacted care today? How? (Home lessness, low income, unemployed, alcoholism, drug addiction, transportation, low edu. Level, literacy, decrease access to med. care, snf, rehab)? @ -No Was there de-escalation of care discussed even if they declined (Discuss DNR or withdrawal of care, Hospice)? DNR status @ -No What co-morbidities impacted this encounter? (DM, HTN, Smoking, COPD, CAD, Cancer, CVA, ARF, Chemo, Hep., AIDS, mental health diagnosis, sleep apnea, morbid obesity)? @ -htn atrial fibrillation, morbid obesity Was patient admitted / discharged? Hospital course, mention meds given and route, prescriptions, significant lab abnormalities, going to OR and other pertinent info. @ -Discharged. 78-year-old male with hematuria. On examination patient's abdomen is soft, nontender. No acute findings. Complete physical examination. At this time patient will be evaluated for laboratory studies and urinalysis. He is in agreement with this plan. CBC unremarkable, coagulation profile reveals a PT of 27.3 and INR of 2.8 consistent with therapeutic range for warfarin. BUN elevated. Creatinine 1.56 which is improved as compared to previous lab studies. Additionally patient's urinalysis reveals large blood, large leukocyte esterase, 143 white blood cells. At this time patient was provided with a liter fluid bolus in addition to IV dose of antibiotics. Strongly, creatinine kinase sent to lab for further evaluation which came back at 132. He will be sent home with oral antibiotics and instructed to follow-up with his primary care provider next week for further evaluation. All questions answered at bedside and strict return parameters discussed with the patient which she is verbalized understanding. Case discussed with Dr. Alejandro Undiagnosed new problem with uncertain prognosis? @ -No Drug Therapy requiring intensive monitoring for toxicity (Heparin, Nitro, Insulin, Cardizem)? @ -No Were any procedures done? @ -No Diagnosis/symptom? @ -hemorrhagic cystitis Acute, or Chronic, or Acute on Chronic? @ -Acute Uncomplicated (without systemic symptoms) or Complicated (systemic symptoms)? @ -uncomplicated Side effects of treatment? @ -No Exacerbation, Progression, or Severe Exacerbation? @ -No Poses a threat to life or bodily function? How? (Chest pain, [place], NE, pneumonia, PE, COPD, DKA, ARF, appy, cholecystitis, CVA, Diverticulitis, Homicidal, Suicidal, threat to staff... and all critical care pts) @ -No - Lab Data Result diagrams: 03/17/24 17:56 03/17/24 17:56 Lab Results 03/17/24 03/17/24 03/17/24 Range/Units 17:56 17:56 17:56 WBC 5.2 (3.8-10.6) k/uL RBC 4.37 (4.30-5.90) m/uL Hgb 14.5 (13.0-17.5) gm/dL Hct 44.7 (39.0-53.0) % MCV 102.4 H (80.0-100.0) fL MCH 33.3 (25.0-35.0) pg MCHC 32.6 (31.0-37.0) g/dL RDW 15.3 (11.5-15.5) % Plt Count 124 L (150-450) k/uL MPV 9.1 Neutrophils % 70 % Lymphocytes % 15 % Monocytes % 9 % Eosinophils % 4 % Basophils % 1 % Neutrophils # 3.6 (1.3-7.7) k/uL Lymphocytes # 0.8 L (1.0-4.8) k/uL Monocytes # 0.5 (0-1.0) k/uL Eosinophils # 0.2 (0-0.7) k/uL Basophils # 0.1 (0-0.2) k/uL Macrocytosis Slight PT 27.3 H (10.0-12.5) sec INR 2.8 H (<1.2) APTT 35.2 H (22.0-30.0) sec Sodium (137-145) mmol/L Potassium (3.5-5.1) mmol/L Chloride (98-107) mmol/L Carbon Dioxide (22-30) mmol/L Anion Gap mmol/L BUN (9-20) mg/dL Creatinine (0.66-1.25) mg/dL Est GFR (CKD-EPI)AfAm (>60 ml/min/1.73 sqM) Est GFR (CKD-EPI)NonAf (>60 ml/min/1.73 sqM) Glucose (74-99) mg/dL Calcium (8.4-10.2) mg/dL Magnesium (1.6-2.3) mg/dL Total Bilirubin (0.2-1.3) mg/dL AST (17-59) U/L ALT (4-49) U/L Alkaline Phosphatase (38-126) U/L Creatine Kinase (55-170) U/L Total Protein (6.3-8.2) g/dL Albumin (3.5-5.0) g/dL Urine Color Light Brown Urine Appearance Turbid (Clear) Urine pH 7.5 (5.0-8.0) Ur Specific Sultan 1.023 (1.001-1.035) Urine Protein 2+ H (Negative) Urine Glucose (UA) Negative (Negative) Urine Ketones Negative (Negative) Urine Blood Large H (Negative) Urine Nitrite Positive (Negative) Urine Bilirubin Negative (Negative) Urine Urobilinogen 2.0 (<2.0) mg/dL Ur Leukocyte Esterase Large H (Negative) Urine RBC 5 (0-5) /hpf Urine WBC 143 H (0-5) /hpf Ur Squamous Epith Cells <1 (0-4) /hpf Triple Phos Crystals Many H (None) /hpf Hyaline Casts 4 H (0-2) /lpf Urine Mucus Rare H (None) /hpf 03/17/24 03/17/24 Range/Units 17:56 21:33 WBC (3.8-10.6) k/uL RBC (4.30-5.90) m/uL Hgb (13.0-17.5) gm/dL Hct (39.0-53.0) % MCV (80.0-100.0) fL MCH (25.0-35.0) pg MCHC (31.0-37.0) g/dL RDW (11.5-15.5) % Plt Count (150-450) k/uL MPV Neutrophils % % Lymphocytes % % Monocytes % % Eosinophils % % Basophils % % Neutrophils # (1.3-7.7) k/uL Lymphocytes # (1.0-4.8) k/uL Monocytes # (0-1.0) k/uL Eosinophils # (0-0.7) k/uL Basophils # (0-0.2) k/uL Macrocytosis PT (10.0-12.5) sec INR (<1.2) APTT (22.0-30.0) sec Sodium 139 (137-145) mmol/L Potassium 4.3 (3.5-5.1) mmol/L Chloride 106 (98-107) mmol/L Carbon Dioxide 26 (22-30) mmol/L Anion Gap 7 mmol/L BUN 30 H (9-20) mg/dL Creatinine 1.56 H (0.66-1.25) mg/dL Est GFR (CKD-EPI)AfAm 49 (>60 ml/min/1.73 sqM) Est GFR (CKD-EPI)NonAf 43 (>60 ml/min/1.73 sqM) Glucose 106 H (74-99) mg/dL Calcium 9.0 (8.4-10.2) mg/dL Magnesium 2.0 (1.6-2.3) mg/dL Total Bilirubin 3.6 H (0.2-1.3) mg/dL AST 36 (17-59) U/L ALT 22 (4-49) U/L Alkaline Phosphatase 177 H (38-126) U/L Creatine Kinase 132 (55-170) U/L Total Protein 6.5 (6.3-8.2) g/dL Albumin 3.6 (3.5-5.0) g/dL Urine Color Urine Appearance (Clear) Urine pH (5.0-8.0) Ur Specific Sultan (1.001-1.035) Urine Protein (Negative) Urine Glucose (UA) (Negative) Urine Ketones (Negative) Urine Blood (Negative) Urine Nitrite (Negative) Urine Bilirubin (Negative) Urine Urobilinogen (<2.0) mg/dL Ur Leukocyte Esterase (Negative) Urine RBC (0-5) /hpf Urine WBC (0-5) /hpf Ur Squamous Epith Cells (0-4) /hpf Triple Phos Crystals (None) /hpf Hyaline Casts (0-2) /lpf Urine Mucus (None) /hpf Disposition Clinical Impression: Hemorrhagic cystitis Disposition: HOME SELF-CARE Condition: Good Instructions (If sedation given, give patient instructions): Urinary Tract Infection in Men (ED) Additional Instructions: Return to the emergency department if symptoms worsen or improve. Complete full course of antibiotics as prescribed. Recommend follow-up with your primary care provider next week for further evaluation. Prescriptions: Ciprofloxacin HCl [Cipro] 500 mg PO Q12HR 12 Days #24 tab Is patient prescribed a controlled substance at d/c from ED?: No Referrals: Luis Fernando Mendes MD [Primary Care Provider] - 1-2 days Time of Disposition: 22:10
[2024-03-17 17:22] VITALS: TEMP 97.4
[2024-03-17 18:10] LABS: Basophils # (A) 0.1 k/uL (0-0.2); Basophils % (A) 1 %; Eosinophils # (A) 0.2 k/uL (0-0.7); Eosinophils % (A) 4 %; HCT 44.7 % (39.0-53.0); HGB 14.5 gm/dL (13.0-17.5); Lymphocytes # (A) 0.8 k/uL (1.0-4.8); Lymphocytes % (A) 15 %; MCH 33.3 pg (25.0-35.0); MCHC 32.6 g/dL (31.0-37.0); MCV 102.4 fL (80.0-100.0); Macrocytosis Slight; Mean Platelet Volume 9.1; Monocytes # (A) 0.5 k/uL (0-1.0); Monocytes % (A) 9 %; Neutrophils # (A) 3.6 k/uL (1.3-7.7); Neutrophils % (A) 70 %; Platelet Count 124 k/uL (150-450); RBC 4.37 m/uL (4.30-5.90); RDW 15.3 % (11.5-15.5); WBC 5.2 k/uL (3.8-10.6)
[2024-03-17 18:18] LABS: INR 2.8 (<1.2); Partial Thromboplastin Time 35.2 sec (22.0-30.0); Prothrombin Time 27.3 sec (10.0-12.5)
[2024-03-17 18:19] LABS: ALT 22 U/L (4-49); AST 36 U/L (17-59); African American GFR (CKD) 49 (>60 ml/min/1.73 sqM); Albumin 3.6 g/dL (3.5-5.0); Alkaline Phosphatase 177 U/L (38-126); Anion Gap 7 mmol/L; Blood Urea Nitrogen 30 mg/dL (9-20); Carbon Dioxide 26 mmol/L (22-30); Chloride 106 mmol/L (98-107); Glucose 106 mg/dL (74-99); Non-African American GFR(CKD) 43 (>60 ml/min/1.73 sqM); Potassium 4.3 mmol/L (3.5-5.1); Sodium 139 mmol/L (137-145); Total Bilirubin 3.6 mg/dL (0.2-1.3); Total Protein 6.5 g/dL (6.3-8.2)
[2024-03-17 19:37] VITALS: RESP 16
[2024-03-17 20:51] LABS: Appearance,Urine Turbid (Clear); Bilirubin,Urine Negative (Negative); Blood,Urine Large (Negative); Color,Urine Light Brown; Glucose,Urine (UA) Negative (Negative); Hyaline Casts,Urine 4 /lpf (0-2); Ketones,Urine Negative (Negative); Leukocyte Esterase,Urine Large (Negative); Mucus,Urine Rare /hpf; Nitrite,Urine Positive (Negative); PH, Urine 7.5 (5.0-8.0); Protein,Urine 2+ (Negative); RBC,Urine 5 /hpf (0-5); Specific Gravity,Urine 1.023 (1.001-1.035); Squamous Epithelial Cell,Urine <1 /hpf (0-4); Triple Phosphate Crystal,Urine Many /hpf; WBC,Urine 143 /hpf (0-5)
[2024-03-17] MEDS: SODIUM CHLORIDE 0.9% 1,000 ML IV STA (21:38)
[2024-03-17 22:56] VITALS: BP 146/97; PULSE 72
== END 2024-03-17 22:50 | disposition home or self-care (01) ==
LOC: EC 16:53
DX: N30.01 Acute cystitis with hematuria (principal); Z91.048 Other nonmedicinal substance allergy status
CPT/HCPCS: 36415; 80053; 82550; 83735; 85025; 85610; 85730; 81001; 99283; 96365; J0696

== ENCOUNTER 2024-06-26 12:58 | Inpatient (IN) | payer MEDICARE ==
--- NOTE | 2024-06-26 13:31 | ED ---
General Adult HPI - General Chief complaint: Fall Stated complaint: Weakness Time Seen by Provider: 06/26/24 13:10 Source: patient, EMS Mode of arrival: EMS - History of Present Illness Initial comments: Dictation was produced using [employer] dictation software. please excuse any gramm atical, word or spelling errors. Chief Complaint: 78-year-old obese male presents to the emergency department with worsening weakness and fall History of Present Illness: Patient 78-year-old male he has multiple comorbidities. States he is here today for worsening weakness and fall. Patient has multiple comorbidities including A-fib, DVT, dyslipidemia hypertension. On the last several days she has been having progressive weakness. Patient denies any pain complaints. He notices that his left leg has been seemingly more red. He wears wraps around his lower extremities to help with lower extremity edema. Denies any fever constitutional symptoms. Patient denies any cough runny nose or sore throat or shortness of breath. The ROS documented in this emergency department record has been reviewed and confirmed by me. Those systems with pertinent positive or negative responses have been documented in the HPI. All other systems are other negative and/or noncontributory. - Related Data Home Medications Medication Instructions Recorded Confirmed Probenecid 500 mg PO BID 07/09/15 06/26/24 Warfarin [Coumadin] 5 mg PO DAILY 07/09/15 06/26/24 Cholecalciferol (Vitamin D3) 50 mcg PO DAILY 06/26/24 06/26/24 [Vitamin D3 (50 Mcg = 2000 Iu)] Citalopram Hydrobromide [CeleXA] 10 mg PO DAILY 06/26/24 06/26/24 Colchicine 0.6 mg PO BID 06/26/24 06/26/24 Furosemide [Lasix] 40 mg PO BID@0900,1500 06/26/24 06/26/24 Latanoprost [Latanoprost 0.005%] 1 drop RIGHT EYE HS 06/26/24 06/26/24 Metoprolol Tartrate [Lopressor] 200 mg PO BID 06/26/24 06/26/24 metOLazone [Zaroxolyn] 2.5 mg PO Q48H 06/26/24 06/26/24 Allergies Allergy/AdvReac Type Severity Reaction Status Date / Time DUST, MOLD Allergy SNEEZING, Uncoded 06/26/24 16:59 RHINITIS POLLEN Allergy SNEEZING, Uncoded 06/26/24 16:59 RHINITIS Review of Systems ROS Statement: Those systems with pertinent positive or pertinent negative responses have been documented in the HPI. ROS Other: All systems not noted in ROS Statement are negative. Past Medical History Past Medical History: Atrial Fibrillation, Deep Vein Thrombosis (DVT), Eye Disorder, Hyperlipidemia, Hypertension, Osteoarthritis (OA), Sleep Ap je/CPAP/BIPAP, Supraventricular Tachycardia (SVT) Additional Past Medical History / Comment(s): HX MALARIA. GOUT. POSS TOMMY- PARKINSON WHITE SYNDROME. UNABLE TO TOLERATE CPAP. GLAUCOMA, HEMORRHOIDS. PRE-CA LESIONS ON SCALP. GLAUCOMA, History of Any Multi-Drug Resistant Organisms: None Reported Past Surgical History: Orthopedic Surgery, Tonsillectomy Additional Past Surgical History / Comment(s): TONSILS X2. JEANE EYES FOR GLAUCOMA , RT KNEE-ARTHROSCOPIC , BILATERAL CARPAL TUNNEL RELEASE Past Anesthesia/Blood Transfusion Reactions: No Reported Reaction Past Psychological History: Depression Smoking Status: Never smoker Past Alcohol Use History: None Reported Past Drug Use History: None Reported - Past Family History Mother Family Medical History: Cancer Father Family Medical History: Cancer General Exam - General Exam Comments Initial Comments: PHYSICAL EXAM: General Impression: Alert and oriented x3, not in acute distress, morbidly obese HEENT: Normocephalic atraumatic, extra-ocular movements intact, pupils equal and reactive to light bilaterally, mucous membranes moist. Cardiovascular: Heart regular rate and rhythm Chest: Able to complete full sentences, no retractions, no tachypnea Abdomen: abdomen soft, non-tender, non-distended, no organomegaly Musculoskeletal: Pulses present and equal in all extremities, 2+ pitting edema to the lower extremities Motor: no focal deficits noted Neurological: CN II-XII grossly intact, no focal motor or sensory deficits noted Skin: None some noncircumferential cellulitis at the upper medial calf area of skin Psych: Normal affect and mood Course Vital Signs 06/26/24 06/26/24 06/26/24 13:06 13:17 15:30 Temperature 98.1 F Pulse Rate 88 90 87 Respiratory 20 18 18 Rate Blood Pressure 98/58 101/64 138/73 O2 Sat by Pulse 97 96 97 Oximetry 06/26/24 16:51 Temperature Pulse Rate 86 Respiratory 18 Rate Blood Pressure 107/67 O2 Sat by Pulse 95 Oximetry EKG Findings - EKG Comments: EKG Findings:: My EKG interpretation: Ventricular rate 94, A-fib, QRS 118, right bundle branch block, QTc 449. No RI prolongation, no QTC prolongation, no ST or T-wave changes noted. EKG compared to September 09, 2019 showing no changes. Overall, this EKG is unremarkable Medical Decision Making - Medical Decision Making Was pt. sent in by a medical professional or institution (, PA, MOTORCYCLE ENGINE ASSEMBLER, urgent care, hospital, or long term...) When possible be specific @ -No Did you speak to anyone other than the patient for history (EMS, parent, family, police, friend...)? What history was obtained from this source @ -No Did you review nursing and triage notes (agree or disagree)? Why? @ -I reviewed and agree with nursing and triage notes Were old charts reviewed (outside hosp., previous admission, EMS record, old EKG, old radiological studies, urgent care reports/EKG's, long term records)? Report findings @ -No old charts were reviewed Differential Diagnosis (chest pain, altered mental status, abdominal pain women, abdominal pain men, vaginal bleeding, musculoskeletal, weakness, fever, dyspnea, syncope, headache, dizziness, GI bleed, back pain, seizure, CVA, palpatations, mental health)? @ -Differential Weakness: Hypoglycemia, shock, sepsis, hyponatremia, anemia, infection, KS, ETOH, adverse medicine reaction, overdose, stroke, this is not meant to be an all-inclusive list. EKG interpreted by me (3pts min.). @ -See above X-rays interpreted by me (1pt min.). @ -X-ray of the chest and pelvis shows no acute processes CT interpreted by me (1pt min.). @ -CT scan of the head and C-spine shows no acute processes U/S interpreted by me (1pt. min.). @ -None done What testing was considered but not performed or refused? (CT, X-rays, U/S, labs)? Why? @ -None What meds were considered but not given or refused? Why? @ -None Was smoking cessation discussed for >3mins.? @ -No Were there social determinants of health that impacted care today? How? (Homelessness, low income, unemployed, alcoholism, drug addiction, transporta tion, low edu. Level, literacy, decrease access to med. care, snf, rehab)? @ -No Was there de-escalation of care discussed even if they declined (Discuss DNR or withdrawal of care, Hospice)? DNR status @ -No What co-morbidities impacted this encounter? (DM, HTN, Smoking, COPD, CAD, Cancer, CVA, ARF, Chemo, Hep., AIDS, mental health diagnosis, sleep apnea, morbid obesity)? @ -Obesity, DVT, debility, lower extremity edema Was patient admitted / discharged? Hospital course, mention meds given and route, prescriptions, significant lab abnormalities, going to OR and other pertinent info. @ -78-year-old male presents to the emergency department for worsening weakness and few falls in the recent past. Vital signs upon arrival are within acceptable limits. Laboratory evaluation obtained. CBC within acceptable limits. INR supratherapeutic greater than 10. Patient given some vitamin K. No bleeding noted. CT scan the brain is negative. Patient denies any black or bloody stools. Patient has slight elevation of renal function likely secondary to dehydration. Urinalysis shows glucosuria concerning for UTI. Viral testing negative. Imaging studies are negative. Given patient's degree of debility he will be admitted. There is also some cellulitic findings in his left lower extr emity. Case discussed with Dr. Pittman for admission. Did you discuss the management of the patient with other professionals (professionals i.e. , PA, MOTORCYCLE ENGINE ASSEMBLER, lab, RT, psych nurse, social welfare clerk, coremaker supervisor, teacher, court registry officer, pillowcase cutter)? Give summary @ -See above Was critical care preformed (if so, how long)? @ -No Undiagnosed new problem with uncertain prognosis? @ -No Drug Therapy requiring intensive monitoring for toxicity (Heparin, Nitro, Insulin, Cardizem)? @ -No Were any procedures done? @ -No Diagnosis/symptom? Acute, or Chronic, or Acute on Chronic? Uncomplicated (without systemic symptoms) or Complicated (systemic symptoms)? @ -Gravely disabled, ELSA, cellulitis, UTI, supratherapeutic INR Side effects of treatment? @ -No Exacerbation, Progression, or Severe Exacerbation? @ -No Poses a threat to life or bodily function? How? (Chest pain, USA, KS, pneumonia, PE, COPD, DKA, ARF, appy, cholecystitis, CVA, Diverticulitis, Homicidal, Suicidal, threat to staff... and all critical care pts) @ -yes - Lab Data Result diagrams: 06/26/24 13:29 06/26/24 13:29 Lab Results 06/26/24 06/26/24 06/26/24 Range/Units 13:29 13:29 13:29 WBC 7.7 (3.8-10.6) k/uL RBC 3.67 L (4.30-5.90) m/uL Hgb 12.6 L (13.0-17.5) gm/dL Hct 37.7 L (39.0-53.0) % MCV 102.7 H (80.0-100.0) fL MCH 34.2 (25.0-35.0) pg MCHC 33.3 (31.0-37.0) g/dL RDW 17.0 H (11.5-15.5) % Plt Count 169 (150-450) k/uL MPV 8.9 Neutrophils % 83 % Lymphocytes % 6 % Monocytes % 7 % Eosinophils % 2 % Basophils % 1 % Neutrophils # 6.4 (1.3-7.7) k/uL Lymphocytes # 0.4 L (1.0-4.8) k/uL Monocytes # 0.5 (0-1.0) k/uL Eosinophils # 0.1 (0-0.7) k/uL Basophils # 0.1 (0-0.2) k/uL Anisocytosis Slight Macrocytosis Moderate PT 106.6 H (10.0-12.5) sec INR >10.0 H* (<1.2) APTT 57.5 H (22.0-30.0) sec Sodium 136 L (137-145) mmol/L Potassium 3.5 (3.5-5.1) mmol/L Chloride 97 L (98-107) mmol/L Carbon Dioxide 33 H (22-30) mmol/L Anion Gap 6 mmol/L BUN 52 H (9-20) mg/dL Creatinine 2.19 H (0.66-1.25) mg/dL Est GFR (CKD-EPI)AfAm 33 (>60 ml/min/1.73 sqM) Est GFR (CKD-EPI)NonAf 28 (>60 ml/min/1.73 sqM) Glucose 117 H (74-99) mg/dL Plasma Lactic Acid Stevie (0.7-2.0) mmol/L Calcium 9.3 (8.4-10.2) mg/dL Magnesium 1.9 (1.6-2.3) mg/dL Total Bilirubin 5.0 H (0.2-1.3) mg/dL AST 167 H (17-59) U/L ALT 48 (4-49) U/L Alkaline Phosphatase 133 H (38-126) U/L Troponin I (0.000-0.034) ng/mL Total Protein 6.5 (6.3-8.2) g/dL Albumin 3.2 L (3.5-5.0) g/dL Urine Color Urine Appearance (Clear) Urine pH (5.0-8.0) Ur Specific Parkman (1.001-1.035) Urine Protein (Negative) Urine Glucose (UA) (Negative) Urine Ketones (Negative) Urine Blood (Negative) Urine Nitrite (Negative) Urine Bilirubin (Negative) Urine Urobilinogen (<2.0) mg/dL Ur Leukocyte Esterase (Negative) Urine RBC (0-5) /hpf Urine WBC (0-5) /hpf Ur Squamous Epith Cells (0-4) /hpf Urine Bacteria (None) /hpf Hyaline Casts (0-2) /lpf Urine Mucus (None) /hpf Influenza Type A (PCR) (Not Detectd) Influenza Type B (PCR) (Not Detectd) RSV (PCR) (Not Detectd) SARS-CoV-2 (PCR) (Not Detectd) 06/26/24 06/26/24 06/26/24 Range/Units 13:29 13:29 13:42 WBC (3.8-10.6) k/uL RBC (4.30-5.90) m/uL Hgb (13.0-17.5) gm/dL Hct (39.0-53.0) % MCV (80.0-100.0) fL MCH (25.0-35.0) pg MCHC (31.0-37.0) g/dL RDW (11.5-15.5) % Plt Count (150-450) k/uL MPV Neutrophils % % Lymphocytes % % Monocytes % % Eosinophils % % Basophils % % Neutrophils # (1.3-7.7) k/uL Lymphocytes # (1.0-4.8) k/uL Monocytes # (0-1.0) k/uL Eosinophils # (0-0.7) k/uL Basophils # (0-0.2) k/uL Anisocytosis Macrocytosis PT (10.0-12.5) sec INR (<1.2) APTT (22.0-30.0) sec Sodium (137-145) mmol/L Potassium (3.5-5.1) mmol/L Chloride (98-107) mmol/L Carbon Dioxide (22-30) mmol/L Anion Gap mmol/L BUN (9-20) mg/dL Creatinine (0.66-1.25) mg/dL Est GFR (CKD-EPI)AfAm (>60 ml/min/1.73 sqM) Est GFR (CKD-EPI)NonAf (>60 ml/min/1.73 sqM) Glucose (74-99) mg/dL Plasma Lactic Acid Stevie 1.5 (0.7-2.0) mmol/L Calcium (8.4-10.2) mg/dL Magnesium (1.6-2.3) mg/dL Total Bilirubin (0.2-1.3) mg/dL AST (17-59) U/L ALT (4-49) U/L Alkaline Phosphatase (38-126) U/L Troponin I <0.012 (0.000-0.034) ng/mL Total Protein (6.3-8.2) g/dL Albumin (3.5-5.0) g/dL Urine Color Yellow Urine Appearance Cloudy (Clear) Urine pH 5.0 (5.0-8.0) Ur Specific Parkman 1.017 (1.001-1.035) Urine Protein Trace H (Negative) Urine Glucose (UA) Negative (Negative) Urine Ketones Negative (Negative) Urine Blood Small H (Negative) Urine Nitrite Negative (Negative) Urine Bilirubin Negative (Negative) Urine Urobilinogen 2.0 (<2.0) mg/dL Ur Leukocyte Esterase Moderate H (Negative) Urine RBC 6 H (0-5) /hpf Urine WBC 14 H (0-5) /hpf Ur Squamous Epith Cells 1 (0-4) /hpf Urine Bacteria Rare H (None) /hpf Hyaline Casts 2 (0-2) /lpf Urine Mucus Rare H (None) /hpf Influenza Type A (PCR) (Not Detectd) Influenza Type B (PCR) (Not Detectd) RSV (PCR) (Not Detectd) SARS-CoV-2 (PCR) (Not Detectd) 06/26/24 Range/Units 13:42 WBC (3.8-10.6) k/uL RBC (4.30-5.90) m/uL Hgb (13.0-17.5) gm/dL Hct (39.0-53.0) % MCV (80.0-100.0) fL MCH (25.0-35.0) pg MCHC (31.0-37.0) g/dL RDW (11.5-15.5) % Plt Count (150-450) k/uL MPV Neutrophils % % Lymphocytes % % Monocytes % % Eosinophils % % Basophils % % Neutrophils # (1.3-7.7) k/uL Lymphocytes # (1.0-4.8) k/uL Monocytes # (0-1.0) k/uL Eosinophils # (0-0.7) k/uL Basophils # (0-0.2) k/uL Anisocytosis Macrocytosis PT (10.0-12.5) sec INR (<1.2) APTT (22.0-30.0) sec Sodium (137-145) mmol/L Potassium (3.5-5.1) mmol/L Chloride (98-107) mmol/L Carbon Dioxide (22-30) mmol/L Anion Gap mmol/L BUN (9-20) mg/dL Creatinine (0.66-1.25) mg/dL Est GFR (CKD-EPI)AfAm (>60 ml/min/1.73 sqM) Est GFR (CKD-EPI)NonAf (>60 ml/min/1.73 sqM) Glucose (74-99) mg/dL Plasma Lactic Acid Stevie (0.7-2.0) mmol/L Calcium (8.4-10.2) mg/dL Magnesium (1.6-2.3) mg/dL Total Bilirubin (0.2-1.3) mg/dL AST (17-59) U/L ALT (4-49) U/L Alkaline Phosphatase (38-126) U/L Troponin I (0.000-0.034) ng/mL Total Protein (6.3-8.2) g/dL Albumin (3.5-5.0) g/dL Urine Color Urine Appearance (Clear) Urine pH (5.0-8.0) Ur Specific Parkman (1.001-1.035) Urine Protein (Negative) Urine Glucose (UA) (Negative) Urine Ketones (Negative) Urine Blood (Negative) Urine Nitrite (Negative) Urine Bilirubin (Negative) Urine Urobilinogen (<2.0) mg/dL Ur Leukocyte Esterase (Negative) Urine RBC (0-5) /hpf Urine WBC (0-5) /hpf Ur Squamous Epith Cells (0-4) /hpf Urine Bacteria (None) /hpf Hyaline Casts (0-2) /lpf Urine Mucus (None) /hpf Influenza Type A (PCR) Not Detected (Not Detectd) Influenza Type B (PCR) Not Detected (Not Detectd) RSV (PCR) Not Detected (Not Detectd) SARS-CoV-2 (PCR) Not Detected (Not Detectd) Disposition Clinical Impression: Weakness Disposition: ADMITTED IP TO THIS [facility] Condition: Fair Referrals: None,Stated [Primary Care Provider] - 1-2 days Decision Time: 17:53
[2024-06-26 13:40] LABS: Anisocytosis Slight; Basophils # (A) 0.1 k/uL (0-0.2); Basophils % (A) 1 %; Eosinophils # (A) 0.1 k/uL (0-0.7); Eosinophils % (A) 2 %; HCT 37.7 % (39.0-53.0); HGB 12.6 gm/dL (13.0-17.5); Lymphocytes # (A) 0.4 k/uL (1.0-4.8); Lymphocytes % (A) 6 %; MCH 34.2 pg (25.0-35.0); MCHC 33.3 g/dL (31.0-37.0); MCV 102.7 fL (80.0-100.0); Macrocytosis Moderate; Mean Platelet Volume 8.9; Monocytes # (A) 0.5 k/uL (0-1.0); Monocytes % (A) 7 %; Neutrophils # (A) 6.4 k/uL (1.3-7.7); Neutrophils % (A) 83 %; Platelet Count 169 k/uL (150-450); RBC 3.67 m/uL (4.30-5.90); WBC 7.7 k/uL (3.8-10.6)
[2024-06-26 13:54] LABS: Partial Thromboplastin Time 57.5 sec (22.0-30.0); Prothrombin Time 106.6 sec (10.0-12.5)
[2024-06-26 14:05] LABS: ALT 48 U/L (4-49); AST 167 U/L (17-59); African American GFR (CKD) 33 (>60 ml/min/1.73 sqM); Albumin 3.2 g/dL (3.5-5.0); Alkaline Phosphatase 133 U/L (38-126); Anion Gap 6 mmol/L; Blood Urea Nitrogen 52 mg/dL (9-20); Calcium 9.3 mg/dL (8.4-10.2); Carbon Dioxide 33 mmol/L (22-30); Chloride 97 mmol/L (98-107); Glucose 117 mg/dL (74-99); Non-African American GFR(CKD) 28 (>60 ml/min/1.73 sqM); Potassium 3.5 mmol/L (3.5-5.1); Sodium 136 mmol/L (137-145); Total Protein 6.5 g/dL (6.3-8.2)
[2024-06-26 14:07] LABS: Magnesium 1.9 mg/dL (1.6-2.3)
[2024-06-26 14:08] LABS: INR >10.0 (<1.2)
[2024-06-26 14:35] LABS: Appearance,Urine Cloudy (Clear); Bacteria,Urine Rare /hpf; Bilirubin,Urine Negative (Negative); Blood,Urine Small (Negative); Color,Urine Yellow; Glucose,Urine (UA) Negative (Negative); Hyaline Casts,Urine 2 /lpf (0-2); Ketones,Urine Negative (Negative); Leukocyte Esterase,Urine Moderate (Negative); Mucus,Urine Rare /hpf; Nitrite,Urine Negative (Negative); Protein,Urine Trace (Negative); RBC,Urine 6 /hpf (0-5); Specific Gravity,Urine 1.017 (1.001-1.035); Squamous Epithelial Cell,Urine 1 /hpf (0-4); WBC,Urine 14 /hpf (0-5)
[2024-06-26] MEDS ORDERED: HYDROmorphone 0.5 MG/0.5 ML SYRINGE IVP PRN (15:50)
[2024-06-26] MEDS: PHYTONADIONE 2 MG in SODIUM CHLORIDE 0.9% 50 ML IVPB STA (16:40)
--- NOTE | 2024-06-26 16:46 | XR ---
Pelvis. HISTORY: Fall. COMPARISON: 09/09/2019 TECHNIQUE: Single AP view the pelvis is obtained FINDINGS: The pelvis is intact and there is no fracture or focal intraosseous abnormality. There is no diastasi s of the SI joints or pubic symphysis. Hips are symmetric bilaterally without evidence of hip trauma. [facility], Workstation: [facility], 06/26/2024 4:44 PM
--- NOTE | 2024-06-26 16:54 | CT ---
EXAMINATION TYPE: CT brain soham hemphill DATE OF EXAM: 06/26/2024 COMPARISON: 09/09/2019 HISTORY: fall CT DLP: 1608 mGycm Automated exposure control for dose reduction was used. TECHNIQUE: CT scan of the head and cervical spine are performed without contrast. Findings: Head CT: Ventricles, basal cisterns and sulci over convexities within normal limits and there is no mass, mass effect or shift of midline structures. No abnormal density is seen throughout the brain parenchyma and there is no acute intra or extra-axia l hemorrhage. Posterior fossa including the brainstem, fourth ventricle and cerebellar pontine angles are grossly n ormal. The intraorbital contents appear normal and symmetric. Visualized paranasal sinuses are well aerated. CT cervical spine: Craniovertebral junction relationships and prevertebral soft tissues are normal. The cervical vertebral segments are normal in height and alignment and there is no fracture subluxati on. There is moderate disc space narrowing at the C5-6 and C6-7 levels and mild disc space narrowing at t he C4-5 level. There is mild anterior spondylosis in lower cervical spine. There is no bony encroachment of the cervical canal. Secondary to arthritis of the facet joints and uncovertebral joints, there is mild neural foraminal e ncroachment at the C3-4 level on the left and at C5-6 bilaterally The paraspinal soft tissues unremarkable. IMPRESSION: 1. Head CT: No acute bleed or mass effect. 2. CT cervical spine: No acute trauma. Degenerative disc disease and mild osteoarthritis as described above. [facility], , 06/26/2024 4:52 PM
--- NOTE | 2024-06-26 17:04 | XR ---
EXAMINATION TYPE: XR chest 2V DATE OF EXAM: 06/26/2024 COMPARISON: 02/28/2015 HISTORY: Congestion TECHNIQUE: Frontal and lateral views of the chest are obtained. FINDINGS There is a small right pleural effusion. There is no pneumothorax. Heart and pulmonary vasculature are normal for the technique. The osseous structures are intact IMPRESSION: Small right pleural effusion. [facility], , 06/26/2024 5:02 PM
--- NOTE | 2024-06-26 17:39 | US ---
EXAMINATION TYPE: US venous doppler duplex LE DATE OF EXAM: 06/26/2024 5:31 PM COMPARISON: NONE CLINICAL INDICATION: Male, 78 years old with history of dvt; Patient states hx of DVT in right calf v eins. Patient states current weakness. Redness near left knee. Pitting edema SIDE PERFORMED: Bilateral TECHNIQUE: The lower extremity deep venous system is examined utilizing real time linear array sonog margo with graded compression, doppler sonography and color-flow sonography. VESSELS IMAGED: Common Femoral Vein Deep Femoral Vein Greater Saphenous Vein * Femoral Vein Popliteal Vein Small Saphenous Vein * Proximal Calf Veins (* superficial vessels) Bilateral EIV and GSV unable to be evaluated due to patient position. Limited due to patient body h abitus and patient position Right Leg: Appears negative for DVT as best seen Left Leg: Appears negative for DVT as best seen The deep venous systems of both lower extremities from the common femoral remains to the proximal anuj f veins are patent and compressible with augmentable flow and with normal waveforms. IMPRESSION: No evidence of bilateral lower extremity DVT from the common femoral veins to the proximal calf veins [facility], Workstation: [email or web address] 06/26/2024 5:37 PM
[2024-06-26] MEDS ORDERED: NALOXONE 0.4 MG/ML 1 ML VIAL IV PRN (17:49)
[2024-06-26] MEDS: SODIUM CHLORIDE 0.9% 1,000 ML IV SCH (18:50)
[2024-06-27 07:04] LABS: Anisocytosis Slight; Basophils % (A) 0 %; Eosinophils # (A) 0.1 k/uL (0-0.7); Eosinophils % (A) 1 %; HCT 35.7 % (39.0-53.0); HGB 12.2 gm/dL (13.0-17.5); Lymphocytes # (A) 0.6 k/uL (1.0-4.8); Lymphocytes % (A) 7 %; MCH 34.9 pg (25.0-35.0); MCHC 34.2 g/dL (31.0-37.0); MCV 102.1 fL (80.0-100.0); Macrocytosis Moderate; Monocytes # (A) 0.7 k/uL (0-1.0); Monocytes % (A) 8 %; Neutrophils % (A) 82 %; Platelet Count 132 k/uL (150-450); RDW 17.6 % (11.5-15.5); WBC 8.6 k/uL (3.8-10.6)
[2024-06-27 07:20] LABS: Prothrombin Time 29.8 sec (10.0-12.5)
[2024-06-27 07:23] LABS: African American GFR (CKD) 34 (>60 ml/min/1.73 sqM); Anion Gap 10 mmol/L; Blood Urea Nitrogen 51 mg/dL (9-20); Calcium 9.4 mg/dL (8.4-10.2); Carbon Dioxide 29 mmol/L (22-30); Chloride 97 mmol/L (98-107); Glucose 100 mg/dL (74-99); Non-African American GFR(CKD) 29 (>60 ml/min/1.73 sqM); Potassium 3.2 mmol/L (3.5-5.1); Sodium 136 mmol/L (137-145)
[2024-06-27] MEDS ORDERED: FUROSEMIDE 40 MG TAB PO SCH (09:00)
[2024-06-27] MEDS ORDERED: metOLazone 2.5 MG TAB PO SCH (09:00)
[2024-06-27] MEDS: DAPAGLIFLOZIN PROPANEDIOL 10 MG TABLET PO SCH (09:56)
[2024-06-27] MEDS: METOPROLOL TARTRATE 50 MG TAB PO SCH (09:56)
[2024-06-27] MEDS: FUROSEMIDE 10 MG/ML 4 ML VIAL IV SCH (09:57)
--- NOTE | 2024-06-27 13:11 | P.CRDCN ---
History of Present Illness Consult date: 06/27/24 Consult reason: congestive heart failure History of present illness: This is a 78-year-old patient of Dr. Deleon with past medical history of morbid obesity, permanent atrial fibrillation on Coumadin, hypertension, dyslipidemia, history of DVT, dilated thoracic aorta and valvular heart disease, pulmonary hypertension. We have been asked to evaluate the patient for heart failure. Patient gives history that he had a fall at home. He states his knee gave out on him. He complains of shortness of breath. He feels poorly in general. He is not very active at home. He denies having any fever. No history of smoking. No palpitations. Edema which she states is at his baseline. No blood in his stool or urine. No history of stroke or seizure. EKG: Atrial fibrillation with nonspecific ST-T wave changes Chest x-ray: Small right pleural effusion Laboratory studies: WBC 8.6, hemoglobin 12.2, platelet count 132. Initial INR 10 and repeat 3 following vitamin K. Sodium 136, potassium 3.2, BUN 51 creatinine 2.13. Total bilirubin 1.5, AST 167, alkaline phosphatase 133. Troponin negative x 1. Influenza A, influenza B, RSV, COVID-19 not detected. Home cardiac medications: Lasix 40 mg twice daily, Zaroxolyn 2.5 mg every 48 hours, Lopressor 200 mg twice daily, Coumadin 5 mg daily. Echocardiogram performed in the office on 06/24/2023 revealed EF of 50 to 55%, moderate concentric left trickle hypertrophy, severely dilated right atrium calcified aortic valve, moderate mitral regurgitation, moderate tricuspid regurgitation, pulmonary artery systolic pressure of 65 mmHg. Lexiscan Cardiolite stress test performed in the office on 06/04/2022 was nondiagnostic electrocardiographic stress testing and response to Lexiscan. Normal myocardial perfusion imaging. No evidence of any stress-induced ischemia. Normal left ventricular systolic function. Review Of Systems: At the time of my exam: CONSTITUTIONAL: Denies fever or chills. Reports generalized weakness. HEENT: Denies blurred vision, vision changes, or eye pain. Denies hemoptysis CARDIOVASCULAR: Denies chest pain. Denies orthopnea. Denies PND. Denies palpitations RESPIRATORY: Denies shortness of breath. GASTROINTESTINAL: Denies abdominal pain. Denies nausea or vomiting. HEMATOLOGIC: Denies bleeding disorders. GENITOURINARY: Denies any blood in urine. SKIN: Denies puritis. Denies rash. Physical examination: Gen: This is a morbidly obese 78-year-old male appears to be in no acute distress VS: reviewed HEENT: Head is atraumatic, normocephalic. Pupils equal, round. Sclerae is anicteric. NECK: Supple. No JVD. LUNGS: Clear to auscultation. No wheezes or rhonchi. No intercostal retractions. HEART: Irregular rate and rhythm. Systolic murmur ABDOMEN: Soft No tenderness. EXTREMITIES: Bilateral lower extremity edema. No calf tenderness. NEUROLOGICAL: Patient is awake, alert and oriented x3. Assessment: Generalized weakness and fall Permanent atrial fibrillation on Coumadin Lower extremity edema and acute on chronic diastolic heart failure Supratherapeutic INR Hypertension Dyslipidemia History of DVT Dilated thoracic aorta Valvular heart disease with moderate MR, moderate to severe pulmonary hypertension Plan: Resume patient's home cardiac medications except hold Zaroxolyn and Lasix Start patient on Farxiga 10 mg daily Start patient on Lasix 40 mg IV every 8 hours Monitor BALAJI, daily weight, electrolytes and renal function Obtain 2-D echocardiogram and Doppler study to assess cardiac structure and function Check insurance coverage for Eliquis Monitor INR Further recommendations to follow based upon clinical course Thank you kindly for this consultation. Nurse practitioner note has been reviewed, I agree with documented findings and plan of care. Patient was seen and examined. Past Medical History Past Medical History: Atrial Fibrillation, Deep Vein Thrombosis (DVT), Eye Disorder, Hyperlipidemia, Hypertension, Osteoarthritis (OA), Sleep Apnea/CPAP/BIPAP, Supraventricular Tachycardia (SVT) Additional Past Medical History / Comment(s): HX MALARIA. GOUT. POSS TOMMY-PARKINSON WHITE SYNDROME. UNABLE TO TOLERATE CPAP. GLAUCOMA, HEMORRHOIDS. PRE-CA LESIONS ON SCALP. GLAUCOMA, History of Any Multi-Drug Resistant Organisms: None Reported Past Surgical History: Orthopedic Surgery, Tonsillectomy Additional Past Surgical History / Comment(s): TONSILS X2. JEANE EYES FOR GLAUCOMA , RT KNEE-ARTHROSCOPIC , BILATERAL CARPAL TUNNEL RELEASE Past Anesthesia/Blood Transfusion Reactions: No Reported Reaction Past Psychological History: Depression Smoking Status: Never smoker Past Alcohol Use History: None Reported Past Drug Use History: None Reported - Past Family History Mother Family Medical History: Cancer Father Family Medical History: Cancer Medications and Allergies Home Medications Medication Instructions Recorded Confirmed Type Probenecid 500 mg PO BID 07/09/15 06/26/24 History Warfarin [Coumadin] 5 mg PO DAILY 07/09/15 06/26/24 History Cholecalciferol (Vitamin D3) 50 mcg PO DAILY 06/26/24 06/26/24 History [Vitamin D3 (50 Mcg = 2000 Iu)] Citalopram Hydrobromide [CeleXA] 10 mg PO DAILY 06/26/24 06/26/24 History Colchicine 0.6 mg PO BID 06/26/24 06/26/24 History Furosemide [Lasix] 40 mg PO BID@0900,1500 06/26/24 06/26/24 History Latanoprost [Latanoprost 0.005%] 1 drop RIGHT EYE HS 06/26/24 06/26/24 History Metoprolol Tartrate [Lopressor] 200 mg PO BID 06/26/24 06/26/24 History metOLazone [Zaroxolyn] 2.5 mg PO Q48H 06/26/24 06/26/24 History Apixaban [Eliquis] 5 mg PO BID #60 tab 06/27/24 Rx Allergies Allergy/AdvReac Type Severity Reaction Status Date / Time DUST, MOLD Allergy SNEEZING, Uncoded 06/26/24 16:59 RHINITIS POLLEN Allergy SNEEZING, Uncoded 06/26/24 16:59 RHINITIS Physical Exam Vitals: Vital Signs Temp Pulse Resp BP Pulse Ox 06/27/24 08:00 98.3 F 99 22 114/65 95 06/27/24 06:25 94 16 96/62 94 L 06/27/24 04:49 98.4 F 102 H 16 96/55 94 L 06/27/24 01:27 102 H 16 110/81 94 L 06/26/24 20:30 105 H 16 116/72 94 L 06/26/24 18:46 98.4 F 98 18 103/68 94 L 06/26/24 16:51 86 18 107/67 95 06/26/24 15:30 87 18 138/73 97 06/26/24 13:17 90 18 101/64 96 06/26/24 13:06 98.1 F 88 20 98/58 97 Intake and Output 09/23/24 09/24/24 09/24/24 22:59 06:59 14:59 Output Total 300 Balance -300 Output: Urine 300 Other: Voiding Method Urinal # Voids 2 Results 06/27/24 06:41 06/27/24 06:38 Cardiac Enzymes 06/26/24 06/26/24 Range/Units 13:29 13:29 AST 167 H (17-59) U/L Troponin I <0.012 (0.000-0.034) ng/mL Coagulation 06/26/24 06/27/24 Range/Units 13:29 06:38 PT 106.6 H 29.8 H (10.0-12.5) sec APTT 57.5 H (22.0-30.0) sec CBC 06/26/24 06/27/24 Range/Units 13:29 06:41 WBC 7.7 8.6 (3.8-10.6) k/uL RBC 3.67 L 3.50 L (4.30-5.90) m/uL Hgb 12.6 L 12.2 L (13.0-17.5) gm/dL Hct 37.7 L 35.7 L (39.0-53.0) % Plt Count 169 132 L (150-450) k/uL Comprehensive Metabolic Panel 06/26/24 06/27/24 Range/Units 13:29 06:38 Sodium 136 L 136 L (137-145) mmol/L Potassium 3.5 3.2 L (3.5-5.1) mmol/L Chloride 97 L 97 L (98-107) mmol/L Carbon Dioxide 33 H 29 (22-30) mmol/L BUN 52 H 51 H (9-20) mg/dL Creatinine 2.19 H 2.13 H (0.66-1.25) mg/dL Glucose 117 H 100 H (74-99) mg/dL Calcium 9.3 9.4 (8.4-10.2) mg/dL AST 167 H (17-59) U/L ALT 48 (4-49) U/L Alkaline Phosphatase 133 H (38-126) U/L Total Protein 6.5 (6.3-8.2) g/dL Albumin 3.2 L (3.5-5.0) g/dL Current Medications Generic Name Dose Route Start Last Admin Trade Name Freq PRN Reason Stop Dose Admin Hydrocodone Bitart/Acetaminophen 1 each 06/26/24 15:50 Hydrocodone/Apap 5-325mg 1 Each Tab PO Q6HR PRN Pain Hydromorphone HCl 0.5 mg 06/26/24 15:50 Hydromorphone 0.5 Mg/0.5 Ml Syringe IVP Q6HR PRN Severe Pain (Scale 7 to 10) Cefazolin Sodium 2 gm/ Sodium 50 mls @ 100 mls/hr 06/26/24 16:00 06/27/24 08:01 Chloride IVPB 100 mls/hr Q8HR SOFI Administration Protocol Sodium Chloride 1,000 mls @ 20 mls/hr 06/26/24 18:00 06/26/24 18:50 Saline 0.9% IV 20 mls/hr .Q24H SOFI Administration Naloxone HCl 0.2 mg 06/26/24 17:49 Naloxone 0.4 Mg/Ml 1 Ml Vial IV Q2M PRN Opioid Reversal Intake and Output 06/26/24 06/27/24 06/27/24 22:59 06:59 14:59 Output Total 300 Balance -300 Output: Urine 300 Other: Voiding Method Urinal # Voids 2 06/27/24 06:41 06/27/24 06:38
--- NOTE | 2024-06-27 13:30 | P.HPIM ---
History of Present Illness H&P Date: 06/27/24 History of present illness; patient 78-year-old gentleman with past medical history significant for A-fib, DVT, hypertension, hyperlipidemia presented the ER because of worsening weakness and fall. Patient states that for the last few days he has been noticing that his left lower leg was getting red and more painful. Patient has history of lower extremity swelling and normally wraps them to help with swelling. There was no complaint of fever or chills. Patient has been complaining of increasing weakness. Patient had a fall yesterday. There was no complaint of any trauma to the head. There was no loss of consciousness. Denied any chest pain or shortness of breath. Because of the symptoms, patient brought to the ER Initial lab work done in the ER showed showed WBC 1.7, hemoglobin 12.6, platelet count 169, INR 10, sodium 136, potassium 3.5, BUN 52, creatinine 2.19, glucose 117, bilirubin 5 AST 167, ALT 48 troponin 0.012, albumin 3.2 UA positive for leukocyte esterase, urine WBC 14 Influenza A not detected Influenza B not detected RSV not detected COVID-19 not detected X-ray of pelvis done, no evidence of any fractures EKG done in the ER showed heart rate of 94, no ST segment elevation or depression seen, no T-wave inversions seen. Chest x-ray done in the ER showed small right pleural effusion CT head done showed no acute intracranial process CT cervical spine done showed no fractures. Duplex ultrasound of lower extremities done showed no DVT Patient admitted to internal medicine service REVIEW OF SYSTEMS: CONSTITUTIONAL: As mentioned above HEENT: No recent visual problems or hearing problems. Denied any sore throat. CARDIOVASCULAR: As mentioned above PULMONARY: As mentioned above. GASTROINTESTINAL: No diarrhea, no nausea, no vomiting, no abdominal pain. NEUROLOGICAL: No headaches, no weakness, no numbness. HEMATOLOGICAL: Denies any bleeding or petechiae. GENITOURINARY: Denies any burning micturition, frequency, or urgency. MUSCULOSKELETAL/RHEUMATOLOGICAL: Denies any joint pain, swelling, or any muscle pain. ENDOCRINE: Denies any polyuria or polydipsia. The rest of the 14-point review of systems is negative. PHYSICAL EXAMINATION: GENERAL: The patient is alert and oriented x3, not in any acute distress. Well developed, well nourished. HEENT: Pupils are round and equally reacting to light. EOMI. No scleral icterus. No conjunctival pallor. Normocephalic, atraumatic. No pharyngeal erythema. No thyromegaly. CARDIOVASCULAR: S1 and S2 present. No murmurs, rubs, or gallops. PULMONARY: Chest is clear to auscultation, no wheezing or crackles. ABDOMEN: Soft, nontender, nondistended, normoactive bowel sounds. No palpable organomegaly. MUSCULOSKELETAL: Left lower extremity erythema seen EXTREMITIES: No cyanosis, clubbing, or pedal edema. NEUROLOGICAL: Gross neurological examination did not reveal any focal deficits. SKIN: No rashes. Assessment and plan Fall Supratherapeutic INR Left lower EXTR cellulitis UTI Chronic A-fib Hypertension Hyperlipidemia Monitor vital signs Monitor CBC Monitor CMP Continue telemetry monitoring Ordered blood cultures Ordered CRP, ESR Ordered ultrasound of kidney Ordered ultrasound of abdomen Patient received vitamin K for supratherapeutic INR, resume pharmacy dose Coumadin depending when INR Strict I's and O's, daily weights, start IV Lasix 40 g every 8 Start IV cefazolin Consult ID Consult cardiology Labs and medication were reviewed.. Continue same treatment. Continue with symptomatic treatment. Resume home medication. Monitor labs and vitals. DVT and GI prophylaxis. Further recommendations as per clinical course of the patient Dictation was produced using [employer] dictation software. please excuse any grammatical, word or spelling errors. Past Medical History Past Medical History: Atrial Fibrillation, Deep Vein Thrombosis (DVT), Eye Dis order, Hyperlipidemia, Hypertension, Osteoarthritis (OA), Sleep Apnea/CPAP/BIPAP, Supraventricular Tachycardia (SVT) Additional Past Medical History / Comment(s): HX MALARIA. GOUT. POSS TOMMY- PARKINSON WHITE SYNDROME. UNABLE TO TOLERATE CPAP. GLAUCOMA, HEMORRHOIDS. PRE-CA LESIONS ON SCALP. GLAUCOMA, History of Any Multi-Drug Resistant Organisms: None Reported Past Surgical History: Orthopedic Surgery, Tonsillectomy Additional Past Surgical History / Comment(s): TONSILS X2. JEANE EYES FOR GLAUCOMA , RT KNEE-ARTHROSCOPIC , BILATERAL CARPAL TUNNEL RELEASE Past Anesthesia/Blood Transfusion Reactions: No Reported Reaction Past Psychological History: Depression Smoking Status: Never smoker Past Alcohol Use History: None Reported Past Drug Use History: None Reported - Past Family History Mother Family Medical History: Cancer Father Family Medical History: Cancer Medications and Allergies Home Medications Medication Instructions Recorded Confirmed Type Probenecid 500 mg PO BID 07/09/15 06/26/24 History Warfarin [Coumadin] 5 mg PO DAILY 07/09/15 06/26/24 History Cholecalciferol (Vitamin D3) 50 mcg PO DAILY 06/26/24 06/26/24 History [Vitamin D3 (50 Mcg = 2000 Iu)] Citalopram Hydrobromide [CeleXA] 10 mg PO DAILY 06/26/24 06/26/24 History Colchicine 0.6 mg PO BID 06/26/24 06/26/24 History Furosemide [Lasix] 40 mg PO BID@0900,1500 06/26/24 06/26/24 History Latanoprost [Latanoprost 0.005%] 1 drop RIGHT EYE HS 06/26/24 06/26/24 History Metoprolol Tartrate [Lopressor] 200 mg PO BID 06/26/24 06/26/24 History metOLazone [Zaroxolyn] 2.5 mg PO Q48H 06/26/24 06/26/24 History Allergies Allergy/AdvReac Type Severity Reaction Status Date / Time DUST, MOLD Allergy SNEEZING, Uncoded 06/26/24 16:59 RHINITIS POLLEN Allergy SNEEZING, Uncoded 06/26/24 16:59 RHINITIS Physical Exam Vitals: Vital Signs Temp Pulse Resp BP Pulse Ox 06/27/24 08:00 98.3 F 99 22 114/65 95 06/27/24 06:25 94 16 96/62 94 L 06/27/24 04:49 98.4 F 102 H 16 96/55 94 L 06/27/24 01:27 102 H 16 110/81 94 L 06/26/24 20:30 105 H 16 116/72 94 L 06/26/24 18:46 98.4 F 98 18 103/68 94 L 06/26/24 16:51 86 18 107/67 95 06/26/24 15:30 87 18 138/73 97 06/26/24 13:17 90 18 101/64 96 06/26/24 13:06 98.1 F 88 20 98/58 97 Intake and Output 06/26/24 06/27/24 06/27/24 22:59 06:59 14:59 Output Total 300 Balance -300 Output: Urine 300 Other: Voiding Method Urinal # Voids 2 Results CBC & Chem 7: 06/27/24 06:41 06/27/24 06:38 Labs: Abnormal Lab Results - Last 24 Hours (Table) 06/26/24 06/26/24 06/26/24 Range/Units 13:29 13:29 13:29 RBC 3.67 L (4.30-5.90) m/uL Hgb 12.6 L (13.0-17.5) gm/dL Hct 37.7 L (39.0-53.0) % MCV 102.7 H (80.0-100.0) fL RDW 17.0 H (11.5-15.5) % Plt Count (150-450) k/uL Lymphocytes # 0.4 L (1.0-4.8) k/uL PT 106.6 H (10.0-12.5) sec INR >10.0 H* (<1.2) APTT 57.5 H (22.0-30.0) sec Sodium 136 L (137-145) mmol/L Potassium (3.5-5.1) mmol/L Chloride 97 L (98-107) mmol/L Carbon Dioxide 33 H (22-30) mmol/L BUN 52 H (9-20) mg/dL Creatinine 2.19 H (0.66-1.25) mg/dL Glucose 117 H (74-99) mg/dL Total Bilirubin 5.0 H (0.2-1.3) mg/dL AST 167 H (17-59) U/L Alkaline Phosphatase 133 H (38-126) U/L Albumin 3.2 L (3.5-5.0) g/dL Urine Protein (Negative) Urine Blood (Negative) Ur Leukocyte Esterase (Negative) Urine RBC (0-5) /hpf Urine WBC (0-5) /hpf Urine Bacteria (None) /hpf Urine Mucus (None) /hpf 06/26/24 06/27/24 06/27/24 Range/Units 13:42 06:38 06:38 RBC (4.30-5.90) m/uL Hgb (13.0-17.5) gm/dL Hct (39.0-53.0) % MCV (80.0-100.0) fL RDW (11.5-15.5) % Plt Count (150-450) k/uL Lymphocytes # (1.0-4.8) k/uL PT 29.8 H (10.0-12.5) sec INR 3.0 H (<1.2) APTT (22.0-30.0) sec Sodium 136 L (137-145) mmol/L Potassium 3.2 L (3.5-5.1) mmol/L Chloride 97 L (98-107) mmol/L Carbon Dioxide (22-30) mmol/L BUN 51 H (9-20) mg/dL Creatinine 2.13 H (0.66-1.25) mg/dL Glucose 100 H (74-99) mg/dL Total Bilirubin (0.2-1.3) mg/dL AST (17-59) U/L Alkaline Phosphatase (38-126) U/L Albumin (3.5-5.0) g/dL Urine Protein Trace H (Negative) Urine Blood Small H (Negative) Ur Leukocyte Esterase Moderate H (Negative) Urine RBC 6 H (0-5) /hpf Urine WBC 14 H (0-5) /hpf Urine Bacteria Rare H (None) /hpf Urine Mucus Rare H (None) /hpf 06/27/ Range/Units 06:41 RBC 3.50 L (4.30-5.90) m/uL Hgb 12.2 L (13.0-17.5) gm/dL Hct 35.7 L (39.0-53.0) % MCV 102.1 H (80.0-100.0) fL RDW 17.6 H (11.5-15.5) % Plt Count 132 L (150-450) k/uL Lymphocytes # 0.6 L (1.0-4.8) k/uL PT (10.0-12.5) sec INR (<1.2) APTT (22.0-30.0) sec Sodium (137-145) mmol/L Potassium (3.5-5.1) mmol/L Chloride (98-107) mmol/L Carbon Dioxide (22-30) mmol/L BUN (9-20) mg/dL Creatinine (0.66-1.25) mg/dL Glucose (74-99) mg/dL Total Bilirubin (0.2-1.3) mg/dL AST (17-59) U/L Alkaline Phosphatase (38-126) U/L Albumin (3.5-5.0) g/dL Urine Protein (Negative) Urine Blood (Negative) Ur Leukocyte Esterase (Negative) Urine RBC (0-5) /hpf Urine WBC (0-5) /hpf Urine Bacteria (None) /hpf Urine Mucus (None) /hpf
--- NOTE | 2024-06-27 14:55 | US ---
EXAMINATION TYPE: US abdomen comp/pelvis limited DATE OF EXAM: 06/27/2024 COMPARISON: NONE CLINICAL INDICATION: Male, 78 years old with history of Abdominal pain, elevated LFTs; Abnormal labs. EXAM MEASUREMENTS: Liver Length: 23.5 cm Gallbladder Wall: 0.3 cm CBD: 0.5 cm Spleen: 14.5 cm Right Kidney: 11.3 x 4.6 x 5.6 cm Left Kidney: 11.2 x 4.5 x 6.7 cm Extremely limited due to patient body habitus and patient unable to turn or position Pancreas: Obscured by bowel gas, small portion seen which appears echogenic Liver: Enlarged in size Gallbladder: Possible small amount of sludge seen at neck area, unable to obtain LLD images CBD: Limited visualization Spleen: Enlarged in size Right Kidney: No hydronephrosis or masses seen, limited visualization Left Kidney: No hydronephrosis or masses seen, limited visualization, lower pole not seen Upper IVC: wnl Abd Aorta: Secured by bowel gas. Visualized portions of normal caliber. Bladder: Obscured by bowel gas All four quadrants of abdomen scanned-small amount of ascites visualized IMPRESSION: 1. Hepatosplenomegaly. Correlate for underlying hepatocellular disease. 2. Small amount of gallbladder sludge. No biliary dilation or diagnostic evidence of cholecystitis. [facility], , 06/27/2024 2:53 PM
[2024-06-27 17:02] LABS: Glucose,Whole Blood 133 mg/dL (70-110)
[2024-06-27] MEDS: WARFARIN 3 MG TAB PO ONE (18:41)
[2024-06-27] MEDS ORDERED: Potassium Replacement Protocol 1 EACH MISC MISCELLANE PRN (21:02)
[2024-06-27] MEDS: POTASSIUM CHLORIDE ER 20 MEQ TAB.ER PO SCH (21:32)
[2024-06-27] MEDS: LATANOPROST 0.005% OPHTH DROPS 2.5 ML BTL RIGHT EYE SCH (21:32)
[2024-06-27] MEDS: PROBENECID 500 MG TAB PO SCH (21:32)
--- NOTE | 2024-06-27 22:12 | P.CONS ---
History of Present Illness - Reason for Consult Consult date: 06/27/24 Cellulitis Requesting physician: Jeffy Pittman - Chief Complaint Weakness and fall x few days - History of Present Illness Patient is a 78-year-old male with a past medical history significant for atrial fibrillation hypertension hyperlipidemia osteoarthritis sleep apnea presenting to the hospital for evaluation of weakness and fall and this patient symptom has been getting worse over the last few days patient also concerned about increasing swelling redness to the left lower extremity in this patient have a chronic swelling of the leg and has been using Butch wrap for compression patient has been diagnosed with a cellulitis admitted to the hospital infectious disease was consulted for further management of antibiotic therapy patient on presentation to the hospital was afebrile and no fever have been called subsequently patient was not tachycardic hypotensive or hypoxic he did have a white count of 7.7 BUN/creatinine was mildly elevated as well as elevated liver enzymes urine has been mildly positive influenza RSV COVID testing was negative patient did have chest x-ray small right effusion venous Doppler no DVT both lower extremity patient did have abdominal ultrasound hepatosplenomegaly small amount of gallbladder sludge no biliary duct dilatation patient is currently being treated with the cefazolin. Review of Systems Positive point and negatives has been mentioned in the HPI, complete review of systems was performed and all other systems are negative Past Medical History Past Medical History: Atrial Fibrillation, Deep Vein Thrombosis (DVT), Eye Disorder, Hyperlipidemia, Hypertension, Osteoarthritis (OA), Sleep Apnea/CPAP/BIPAP, Supraventricular Tachycardia (SVT) Additional Past Medical History / Comment(s): HX MALARIA. GOUT. POSS TOMMY-P ARKINSON WHITE SYNDROME. UNABLE TO TOLERATE CPAP. GLAUCOMA, HEMORRHOIDS. PRE-CA LESIONS ON SCALP. GLAUCOMA, History of Any Multi-Drug Resistant Organisms: None Reported Past Surgical History: Orthopedic Surgery, Tonsillectomy Additional Past Surgical History / Comment(s): TONSILS X2. JEANE EYES FOR GLAUCOMA , RT KNEE-ARTHROSCOPIC , BILATERAL CARPAL TUNNEL RELEASE Past Anesthesia/Blood Transfusion Reactions: No Reported Reaction Past Psychological History: Depression Smoking Status: Never smoker Past Alcohol Use History: None Reported Past Drug Use History: None Reported - Past Family History Mother Family Medical History: Cancer Father Family Medical History: Cancer Medications and Allergies Home Medications Medication Instructions Recorded Confirmed Type Probenecid 500 mg PO BID 07/09/15 06/26/24 History Cholecalciferol (Vitamin D3) 50 mcg PO DAILY 06/26/24 06/26/24 History [Vitamin D3 (50 Mcg = 2000 Iu)] Colchicine 0.6 mg PO BID 06/26/24 06/26/24 History Latanoprost [Latanoprost 0.005%] 1 drop RIGHT EYE HS 06/26/24 06/26/24 History Acetaminophen Tab [Tylenol] 650 mg PO Q6HR PRN tab 07/21/24 Rx Citalopram Hydrobromide [CeleXA] 10 mg PO DAILY tab 07/21/24 Rx HYDROcodone/APAP 5-325MG [Redgranite 1 each PO Q6HR PRN #120 tab 07/21/24 Rx 5-325] Levothyroxine Sodium [Synthroid] 100 mcg PO DAILY@0630 #30 tab 07/21/24 Rx Metoprolol Tartrate [Lopressor] 50 mg PO BID #60 tab 07/21/24 Rx Midodrine [ProAmatine] 10 mg PO QID #120 tab 07/21/24 Rx Pantoprazole [Protonix] 40 mg PO AC-BRKFST #30 tab 07/21/24 Rx Sevelamer [Renvela] 800 mg PO BID #60 tab 07/21/24 Rx Sodium Chloride 0.65% Nasal [Deep 2 spray NASAL QID PRN #1 ml 07/21/24 Rx Sea (Saline)] bisacodyL [Dulcolax] 10 mg PO DAILY PRN #30 tab 07/21/24 Rx polyethylene glycoL 3350 [Miralax] 17 gm PO DAILY PRN #30 packet 07/21/24 Rx Amiodarone [Cordarone] 200 mg PO DAILY tab 07/27/24 Rx Apixaban [Eliquis] 2.5 mg PO BID tab 07/27/24 Rx Allergies Allergy/AdvReac Type Severity Reaction Status Date / Time DUST, MOLD Allergy SNEEZING, Uncoded 06/26/24 16:59 RHINITIS POLLEN Allergy SNEEZING, Uncoded 06/26/24 16:59 RHINITIS Physical Exam Vitals: Vital Signs Temp Pulse Resp BP Pulse Ox FiO2 06/27/24 10:16 21 06/27/24 10:00 102 H 18 109/69 90 L 06/27/24 08:00 98.3 F 99 22 114/65 95 06/27/24 06:25 94 16 96/62 94 L 06/27/24 04:49 98.4 F 102 H 16 96/55 94 L 06/27/24 01:27 102 H 16 110/81 94 L 06/26/24 20:30 105 H 16 116/72 94 L 06/26/24 18:46 98.4 F 98 18 103/68 94 L 06/26/24 16:51 86 18 107/67 95 06/26/24 15:30 87 18 138/73 97 06/26/24 13:17 90 18 101/64 96 06/26/24 13:06 98.1 F 88 20 98/58 97 Intake and Output 06/26/24 06/27/24 06/27/24 22:59 06:59 14:59 Output Total 300 Balance -300 Output: Urine 300 Other: Voiding Method Urinal # Voids 2 GENERAL DESCRIPTION: Elderly male lying in bed, no distress. No tachypnea or accessory muscle of respiration use. HEENT: Shows Pallor , no scleral icterus. Oral mucous membrane is dry. No pharyngeal erythema or thrush NECK: Trachea central, no thyromegaly. LUNGS: Unlabored breathing. Clear to auscultation anteriorly. No wheeze or crackle. HEART: S1, S2, regular rate and rhythm. No loud murmur ABDOMEN: Soft, no tenderness , guarding or rigidity, no organomegaly EXTREMITIES: Patient did have diffuse swelling of bilateral extremity did have more redness to the left leg which is warm and tender to touch SKIN: No rash, no masses palpable. NEUROLOGICAL: The patient is awake, alert, oriented x3, mood and affect normal. Results CBC & Chem 7: 08/01/24 07:02 08/01/24 07:02 Labs: Abnormal Lab Results - Last 24 Hours (Table) 06/26/24 06/26/24 06/26/24 Range/Units 13:29 13:29 13:29 RBC 3.67 L (4.30-5.90) m/uL Hgb 12.6 L (13.0-17.5) gm/dL Hct 37.7 L (39.0-53.0) % MCV 102.7 H (80.0-100.0) fL RDW 17.0 H (11.5-15.5) % Plt Count (150-450) k/uL Lymphocytes # 0.4 L (1.0-4.8) k/uL PT 106.6 H (10.0-12.5) sec INR >10.0 H* (<1.2) APTT 57.5 H (22.0-30.0) sec Sodium 136 L (137-145) mmol/L Potassium (3.5-5.1) mmol/L Chloride 97 L (98-107) mmol/L Carbon Dioxide 33 H (22-30) mmol/L BUN 52 H (9-20) mg/dL Creatinine 2.19 H (0.66-1.25) mg/dL Glucose 117 H (74-99) mg/dL Total Bilirubin 5.0 H (0.2-1.3) mg/dL AST 167 H (17-59) U/L Alkaline Phosphatase 133 H (38-126) U/L C-Reactive Protein (<1.0) mg/dL Albumin 3.2 L (3.5-5.0) g/dL Urine Protein (Negative) Urine Blood (Negative) Ur Leukocyte Esterase (Negative) Urine RBC (0-5) /hpf Urine WBC (0-5) /hpf Urine Bacteria (None) /hpf Urine Mucus (None) /hpf 06/26/24 06/27/24 06/27/24 Range/Units 13:42 06:38 06:38 RBC (4.30-5.90) m/uL Hgb (13.0-17.5) gm/dL Hct (39.0-53.0) % MCV (80.0-100.0) fL RDW (11.5-15.5) % Plt Count (150-450) k/uL Lymphocytes # (1.0-4.8) k/uL PT 29.8 H (10.0-12.5) sec INR 3.0 H (<1.2) APTT (22.0-30.0) sec Sodium 136 L (137-145) mmol/L Potassium 3.2 L (3.5-5.1) mmol/L Chloride 97 L (98-107) mmol/L Carbon Dioxide (22-30) mmol/L BUN 51 H (9-20) mg/dL Creatinine 2.13 H (0.66-1.25) mg/dL Glucose 100 H (74-99) mg/dL Total Bilirubin (0.2-1.3) mg/dL AST (17-59) U/L Alkaline Phosphatase (38-126) U/L C-Reactive Protein (<1.0) mg/dL Albumin (3.5-5.0) g/dL Urine Protein Trace H (Negative) Urine Blood Small H (Negative) Ur Leukocyte Esterase Moderate H (Negative) Urine RBC 6 H (0-5) /hpf Urine WBC 14 H (0-5) /hpf Urine Bacteria Rare H (None) /hpf Urine Mucus Rare H (None) /hpf 06/27/24 06/27/24 Range/Units 06:41 10:36 RBC 3.50 L (4.30-5.90) m/uL Hgb 12.2 L (13.0-17.5) gm/dL Hct 35.7 L (39.0-53.0) % MCV 102.1 H (80.0-100.0) fL RDW 17.6 H (11.5-15.5) % Plt Count 132 L (150-450) k/uL Lymphocytes # 0.6 L (1.0-4.8) k/uL PT (10.0-12.5) sec INR (<1.2) APTT (22.0-30.0) sec Sodium (137-145) mmol/L Potassium (3.5-5.1) mmol/L Chloride (98-107) mmol/L Carbon Dioxide (22-30) mmol/L BUN (9-20) mg/dL Creatinine (0.66-1.25) mg/dL Glucose (74-99) mg/dL Total Bilirubin (0.2-1.3) mg/dL AST (17-59) U/L Alkaline Phosphatase (38-126) U/L C-Reactive Protein 4.9 H (<1.0) mg/dL Albumin (3.5-5.0) g/dL Urine Protein (Negative) Urine Blood (Negative) Ur Leukocyte Esterase (Negative) Urine RBC (0-5) /hpf Urine WBC (0-5) /hpf Urine Bacteria (None) /hpf Urine Mucus (None) /hpf Assessment and Plan (1) Left leg cellulitis Current Visit: Yes Status: Acute Code(s): L03.116 - CELLULITIS OF LEFT LOWER LIMB SNOMED Code(s): 89709483915263007 Plan: 1patient presented to hospital with generalized weakness and falls in this patient who did have chronic swelling to the lower extremity now with worsening swelling redness to the left leg concerning for cellulitis likely streptococcal disease with diffuse swelling and redness no evidence of any purulence 2-doreen area of redness apply Butch wrap to the leg from just above the toe to below the knee change daily 3-patient with mild renal insufficiency and high risk of nephrotoxicity from vancomycin 4-patient has been advised cefazolin 2 g every 8 hours We will follow on clinical condition and cultures to further adjust medication if needed Thank you for this consultation we will follow the patient along with you Dictation was produced using Ret[employer] dictation software. please excuse any grammatical, word or spelling errors. Time with Patient: Greater than 30
--- NOTE | 2024-06-28 07:11 | CA ---
Transthoracic Echo Report Name: Redd Dave Age: 78 Gender: M : 1945 Exam Date: 06/27/2024 08:58 Exam Location: [facility] Ht (in): 73 Wt (lb): 373 Ordering Physician: Jeffy Pittman MD Attending/Referring Phys: Infectious Disease Technician Lotus Mi RDCS Procedure CPT: Indications: chf Cardiac Hx: Technical Quality: Fair Contrast 1: Total Dose (mL): Contrast 2: Total Dose (mL): MEASUREMENTS (Male / Female) Normal Values 2D ECHO LV Diastolic Diameter PLAX 4.7 cm 4.2 - 5.9 / 3.9 - 5.3 cm LV Systolic Diameter PLAX 3.2 cm IVS Diastolic Thickness 1.3 cm 0.6 - 1.0 / 0.6 - 0.9 cm LVPW Diastolic Thickness 1.5 cm 0.6 - 1.0 / 0.6 - 0.9 cm LV Relative Wall Thickness 0.6 RV Internal Dim ED PLAX 5.1 cm LVOT Diameter 1.7 cm LA Volume 114.6 cm??? 18 - 58 / 22 - 52 cm??? LA Volume Index 37.7 cm???/m??? 16 - 28 cm???/m??? M-MODE Aortic Root Diameter MM 3.9 cm LA Systolic Diameter MM 4.2 cm LA Ao Ratio MM 1.1 AV Cusp Separation MM 1.6 cm DOPPLER AV Peak Velocity 134.3 cm/s AV Peak Gradient 7.2 mmHg AV Mean Velocity 97.8 cm/s AV Mean Gradient 4.2 mmHg AV Velocity Time Integral 26.1 cm LVOT Peak Velocity 77.9 cm/s LVOT Peak Gradient 2.4 mmHg LVOT Velocity Time Integral 15.0 cm LVOT Stroke Volume 34.9 cm??? LVOT Stroke Volume Index 12.4 ml/m??? LVOT Cardiac Index 1310.0 cm???/min???m??? AV Area Cont Eq vti 1.3 cm??? AV Area Cont Eq pk 1.3 cm??? MV Area PHT 5.5 cm??? Mitral E Point Velocity 117.2 cm/s Mitral A Point Velocity 0.2 cm/s Mitral E to A Ratio 563.4 MV Deceleration Time 136.8 ms MV E' Velocity 6.3 cm/s Mitral E to MV E' Ratio 18.7 TR Peak Velocity 363.6 cm/s TR Peak Gradient 52.9 mmHg Right Ventricular Systolic Press 56.3 mmHg FINDINGS Left Ventricle Mildly increased left ventricular wall thickness. Left ventricular cavity size normal. No obvious regional wall motion abnormalities. Left ventricular ejection fraction is estimated at 50-55 %. Right Ventricle Severe right ventricular dilatation. Severe pulmonary hypertension. Right ventricular systolic pressure estimated at 56 mm hg. Right Atrium Moderate right atrial dilatation. Left Atrium Moderately increased left atrial volume. Mildly increased left atrial area. Mitral Valve Structurally normal mitral valve. Mitral valve thickened. Mild mitral annular calcification. Moderate mitral regurgitation. Aortic Valve No aortic valve stenosis or regurgitation. Tricuspid Valve Structurally normal tricuspid valve. Severe tricuspid regurgitation. Pulmonic Valve Structurally normal pulmonic valve. Pericardium Small pericardial effusion. Aorta Normal size aortic root and proximal ascending aorta. CONCLUSIONS Normal LV systolic function Severe pulmonary hypertension Severely enlarged right ventricle Moderate mitral regurgitation Severe tricuspid regurgitation Small pericardial effusion Previewed by: Dr. Naga Deleon MD (Electronically Signed) Final Date: 28 June 2024 07:10
[2024-06-28 08:01] LABS: Anisocytosis Slight; Basophils # (A) 0.1 k/uL (0-0.2); Basophils % (A) 1 %; Eosinophils # (A) 0.1 k/uL (0-0.7); Eosinophils % (A) 2 %; HCT 38.9 % (39.0-53.0); HGB 12.4 gm/dL (13.0-17.5); Hypochromasia Slight; Lymphocytes # (A) 0.5 k/uL (1.0-4.8); Lymphocytes % (A) 9 %; MCHC 31.8 g/dL (31.0-37.0); MCV 106.9 fL (80.0-100.0); Macrocytosis Marked; Monocytes # (A) 0.7 k/uL (0-1.0); Monocytes % (A) 11 %; Neutrophils # (A) 4.6 k/uL (1.3-7.7); Neutrophils % (A) 74 %; Platelet Count 147 k/uL (150-450); RBC 3.64 m/uL (4.30-5.90); WBC 6.2 k/uL (3.8-10.6)
[2024-06-28] MEDS: CHOLECALCIFEROL 25 MCG (1000 IU) TABLET PO SCH (08:08)
[2024-06-28] MEDS: CITALOPRAM HYDROBROMIDE 10 MG TAB PO SCH (08:08)
[2024-06-28 08:21] LABS: INR 2.1 (<1.2)
[2024-06-28 08:40] LABS: ALT 27 U/L (4-49); AST 107 U/L (17-59); African American GFR (CKD) 32 (>60 ml/min/1.73 sqM); Alkaline Phosphatase 134 U/L (38-126); Anion Gap 7 mmol/L; Blood Urea Nitrogen 55 mg/dL (9-20); Calcium 9.1 mg/dL (8.4-10.2); Carbon Dioxide 31 mmol/L (22-30); Chloride 98 mmol/L (98-107); Glucose 91 mg/dL (74-99); Non-African American GFR(CKD) 28 (>60 ml/min/1.73 sqM); Potassium 3.2 mmol/L (3.5-5.1); Sodium 136 mmol/L (137-145); Total Bilirubin 5.4 mg/dL (0.2-1.3); Total Protein 6.2 g/dL (6.3-8.2)
[2024-06-28 08:48] LABS: NT-Pro-B-Type Natriuretic Pept 12300 pg/mL
--- NOTE | 2024-06-28 10:40 | P.PN ---
Subjective History of present illness; patient 78-year-old gentleman with past medical history significant for A-fib, DVT, hypertension, hyperlipidemia presented the ER because of worsening weakness and fall. Patient states that for the last few days he has been noticing that his left lower leg was getting red and more painful. Patient has history of lower extremity swelling and normally wraps them to help with swelling. There was no complaint of fever or chills. Patient has been complaining of increasing weakness. Patient had a fall yesterday. Th ere was no complaint of any trauma to the head. There was no loss of consciousness. Denied any chest pain or shortness of breath. Because of the symptoms, patient brought to the ER Initial lab work done in the ER showed showed WBC 1.7, hemoglobin 12.6, platelet count 169, INR 10, sodium 136, potassium 3.5, BUN 52, creatinine 2.19, glucose 117, bilirubin 5 AST 167, ALT 48 troponin 0.012, albumin 3.2 UA positive for leukocyte esterase, urine WBC 14 Influenza A not detected Influenza B not detected RSV not detected COVID-19 not detected X-ray of pelvis done, no evidence of any fractures EKG done in the ER showed heart rate of 94, no ST segment elevation or depression seen, no T-wave inversions seen. Chest x-ray done in the ER showed small right pleural effusion CT head done showed no acute intracranial process CT cervical spine done showed no fractures. Duplex ultrasound of lower extremities done showed no DVT Patient admitted to internal medicine service 06/28 Patient is lying in bed does not look in distress He still complaining from some pain in his left leg about 3/10, his left leg swollen pink warm and tender He has been treated for CHF, he has bilateral leg swelling, it is hard to hear basal crepitation as he is obese He still feels generally weak No other new complaint He is currently treated with cefazolin but urine culture is growing Enterococcus. Patient denies overt UTI signs symptoms currently Also is on IV Lasix 40 mg 3 times a day He was given warfarin 5 mg after INR came down to 3.0 down to 2.1 today [place]calcitonin [place] [id number] Creatinine 2.2 today, was 2.1 last 2 days, baseline 1.4-1.7 Blood pressure is borderline Review of systems CONSTITUTIONAL: No fever, no malaise, no fatigue. HEENT: No recent visual problems or hearing problems. Denied any sore throat. CARDIOVASCULAR: No orthopnea, PND, no palpitations, no syncope. HEMATOLOGICAL: Denies any bleeding or petechiae. GENITOURINARY: Denies any burning micturition, frequency, or urgency. MUSCULOSKELETAL/RHEUMATOLOGICAL: Denies any joint pain, swelling, or any muscle pain. ENDOCRINE: Denies any polyuria or polydipsia. Active Medications Generic Name Dose Route Start Last Admin Trade Name Freq PRN Reason Stop Dose Admin Hydrocodone Bitart/Acetaminophen 1 each 06/26/24 15:50 Hydrocodone/Apap 5-325mg 1 Each Tab PO Q6HR PRN Pain Cholecalciferol 50 mcg 06/28/24 09:00 06/28/24 08:08 Cholecalciferol 25 Mcg (1000 Iu) Tablet PO 50 mcg DAILY SOFI Administration Citalopram Hydrobromide 10 mg 06/28/24 09:00 06/28/24 08:08 Citalopram Hydrobromide 10 Mg Tab PO 10 mg DAILY SOFI Administration Dapagliflozin 10 mg 06/27/24 09:00 06/28/24 08:08 Dapagliflozin Propanediol 10 Mg Tablet PO 10 mg DAILY SOFI Administration Furosemide 40 mg 06/27/24 08:45 06/28/24 08:08 Furosemide 10 Mg/Ml 4 Ml Vial IV 40 mg Q8HR SOFI Administration Hydromorphone HCl 0.5 mg 06/26/24 15:50 Hydromorphone 0.5 Mg/0.5 Ml Syringe IVP Q6HR PRN Severe Pain (Scale 7 to 10) Sodium Chloride 1,000 mls @ 20 mls/hr 06/26/24 18:00 06/27/24 18:41 Saline 0.9% IV 20 mls/hr .Q24H SOFI Administration Cefazolin Sodium 2 gm/ Sodium 50 mls @ 100 mls/hr 06/27/24 19:00 06/28/24 04:42 Chloride IVPB Not Given Q8H SOFI Protocol Latanoprost 1 drops 06/27/24 21:00 06/27/24 21:32 Latanoprost 0.005% Ophth Drops 2.5 Ml Btl RIGHT EYE 1 drops HS SOFI Administration Metoprolol Tartrate 200 mg 06/27/24 09:00 06/28/24 08:08 Metoprolol Tartrate 50 Mg Tab PO 200 mg BID SOFI Administration Miscellaneous Information 1 each 06/27/24 09:57 Warfarin Per Pharmacy MISCELLANE DIRECTED PRN Per Protocol Protocol Miscellaneous Information 1 each 06/27/24 21:02 Potassium Replacement Protocol 1 Each [facility] [place] DAILY PRN Per Protocol Protocol Naloxone HCl 0.2 mg 06/26/24 17:49 Naloxone 0.4 Mg/Ml 1 Ml Vial IV Q2M PRN Opioid Reversal Probenecid 500 mg 06/27/24 21:00 06/28/24 08:08 Probenecid 500 Mg Tab PO 500 mg BID SOFI Administration Warfarin Sodium 5 mg 06/28/24 18:00 Warfarin 5 Mg Tab PO 06/28/24 18:01 ONCE@1800 ONE Objective - Vital Signs Vital signs: Vital Signs Temp 97.8 F 06/28/24 08:05 Pulse 84 06/28/24 08:05 Resp 18 06/28/24 08:05 BP 95/59 06/28/24 08:05 Pulse Ox 95 06/28/24 08:05 FiO2 21 06/28/24 04:01 Intake & Output 06/27/24 06/28/24 06/28/24 18:59 06:59 18:59 Intake Total 240 Output Total 200 600 Balance -200 -360 Weight 169.19 kg 136 kg Intake: Oral 240 Output: Urine 200 600 Other: Voiding Method External Catheter External Catheter # Voids 1 - Exam -GENERAL: The patient is alert and oriented x3, not in any acute distress. Well developed, well nourished. Obese HEENT: Pupils are round and equally reacting to light. EOMI. No scleral icterus. No conjunctival pallor. Normocephalic, atraumatic. No pharyngeal erythema. No thyromegaly. CARDIOVASCULAR: S1 and S2 present. No murmurs, rubs, or gallops. PULMONARY: Chest is clear to auscultation, no wheezing , no crackles. ABDOMEN: Soft, nontender, nondistended, normoactive bowel sounds. No palpable organomegaly. MUSCULOSKELETAL: No joint swelling or deformity. -EXTREMITIES: No cyanosis, clubbing, or pedal edema. Left leg is swollen, pink, warm and slightly tender. Bilateral pitting leg edema 1+, more on the left side NEUROLOGICAL: Gross neurological examination did not reveal any focal deficits. SKIN: No rashes. no petechiae. - Labs CBC & Chem 7: 06/28/24 07:24 06/28/24 07:24 Labs: Abnormal Lab Results - Last 24 Hours (Table) 06/27/24 06/27/24 06/27/24 Range/Units 10:36 10:36 17:00 RBC (4.30-5.90) m/uL Hgb (13.0-17.5) gm/dL Hct (39.0-53.0) % MCV (80.0-100.0) fL RDW (11.5-15.5) % Plt Count (150-450) k/uL Lymphocytes # (1.0-4.8) k/uL Macrocytosis ESR 31 H (0-20) mm/Hr PT (10.0-12.5) sec INR (<1.2) Sodium (137-145) mmol/L Potassium (3.5-5.1) mmol/L Carbon Dioxide (22-30) mmol/L BUN (9-20) mg/dL Creatinine (0.66-1.25) mg/dL POC Glucose (mg/dL) 133 H (70-110) mg/dL Total Bilirubin (0.2-1.3) mg/dL AST (17-59) U/L Alkaline Phosphatase (38-126) U/L C-Reactive Protein 4.9 H (<1.0) mg/dL Total Protein (6.3-8.2) g/dL Albumin (3.5-5.0) g/dL 06/28/24 06/28/24 06/28/24 Range/Units 07: 07:24 07:24 RBC 3.64 L (4.30-5.90) m/uL Hgb 12.4 L (13.0-17.5) gm/dL Hct 38.9 L (39.0-53.0) % MCV 106.9 H (80.0-100.0) fL RDW 17.0 H (11.5-15.5) % Plt Count 147 L (150-450) k/uL Lymphocytes # 0.5 L (1.0-4.8) k/uL Macrocytosis Marked A ESR (0-20) mm/Hr PT 21.0 H (10.0-12.5) sec INR 2.1 H (<1.2) Sodium 136 L (137-145) mmol/L Potassium 3.2 L (3.5-5.1) mmol/L Carbon Dioxide 31 H (22-30) mmol/L BUN 55 H (9-20) mg/dL Creatinine 2.21 H (0.66-1.25) mg/dL POC Glucose (mg/dL) (70-110) mg/dL Total Bilirubin 5.4 H (0.2-1.3) mg/dL AST 107 H (17-59) U/L Alkaline Phosphatase 134 H (38-126) U/L C-Reactive Protein (<1.0) mg/dL Total Protein 6.2 L (6.3-8.2) g/dL Albumin 3.0 L (3.5-5.0) g/dL Microbiology - Last 24 Hours (Table) 06/26/24 13:42 Urine Culture - Preliminary Urine,Voided Group D Enterococcus 06/26/24 17:01 Blood Culture - Preliminary Blood Assessment and Plan Assessment: Acute left leg cellulitis Fall at home Acute urinary tract infection secondary to Enterococcus group D Acute diastolic CHF with preserved ejection fraction Hepatosplenomegaly, patient has been told by Dr. Hansen he has nonalcoholic liver cirrhosis Chronic atrial fibrillations on Coumadin with high INR on admission, currently improved Obesity with BMI of 39.6 History of DVT Plan: Continue with antibiotic as per ID team. Currently cefazolin Continue with IV Lasix 40 mg every 8 hours Continue with warfarin and monitoring INR Zaroxolyn is on hold Labs and medication were reviewed.. Continue same treatment. Continue with symptomatic treatment. Resume home medication. Monitor labs and vitals. DVT and GI prophylaxis. Further recommendations as per clinical course of the patient DVT prophylaxis: Warfarin GI Prophylaxis: Pepcid PT/OT: Pending Prognosis is guarded
[2024-06-28] MEDS: POTASSIUM CHLORIDE ER 20 MEQ TAB.ER PO SCH (15:15)
[2024-06-28] MEDS: ZINC OXIDE PASTE (Z-GUARD) 1 APPLIC TOPICAL PRN (16:47)
[2024-06-28] MEDS ORDERED: WARFARIN 5 MG TAB PO ONE (18:00)
[2024-06-28] MEDS: ACETAMINOPHEN TAB 325 MG TAB PO PRN (20:23)
--- NOTE | 2024-06-29 07:27 | P.PN ---
Subjective History of present illness; patient 78-year-old gentleman with past medical history significant for A-fib, DVT, hypertension, hyperlipidemia presented the ER because of worsening weakness and fall. Patient states that for the last few days he has been noticing that his left lower leg was getting red and more painful. Patient has history of lower extremity swelling and normally wraps them to help with swelling. There was no complaint of fever or chills. Patient has been complaining of increasing weakness. Patient had a fall yesterday. Th ere was no complaint of any trauma to the head. There was no loss of consciousness. Denied any chest pain or shortness of breath. Because of the symptoms, patient brought to the ER Initial lab work done in the ER showed showed WBC 1.7, hemoglobin 12.6, platelet count 169, INR 10, sodium 136, potassium 3.5, BUN 52, creatinine 2.19, glucose 117, bilirubin 5 AST 167, ALT 48 troponin 0.012, albumin 3.2 UA positive for leukocyte esterase, urine WBC 14 Influenza A not detected Influenza B not detected RSV not detected COVID-19 not detected X-ray of pelvis done, no evidence of any fractures EKG done in the ER showed heart rate of 94, no ST segment elevation or depression seen, no T-wave inversions seen. Chest x-ray done in the ER showed small right pleural effusion CT head done showed no acute intracranial process CT cervical spine done showed no fractures. Duplex ultrasound of lower extremities done showed no DVT Patient admitted to internal medicine service 06/28 Patient is lying in bed does not look in distress He still complaining from some pain in his left leg about 3/10, his left leg swollen pink warm and tender He has been treated for CHF, he has bilateral leg swelling, it is hard to hear basal crepitation as he is obese He still feels generally weak No other new complaint He is currently treated with cefazolin but urine culture is growing Enterococcus. Patient denies overt UTI signs symptoms currently Also is on IV Lasix 40 mg 3 times a day He was given warfarin 5 mg after INR came down to 3.0 down to 2.1 today [place]calcitonin [place] [address] Creatinine 2.2 today, was 2.1 last 2 days, baseline 1.4-1.7 Blood pressure is borderline 06/29 his left leg cellulitis is improving, still has swollen of the legs. No chest pain or dyspnea or other new complaint He is using CPAP machine at night Vitals are stable Labs from today are still pending. Yesterday his INR was therapeutic at 2.1. Urine culture is growing Enterococcus which is sensitive Continue with Coumadin. He denies any urinary tract symptoms he has external urinary catheter. Keep monitoring creatinine Objective - Vital Signs Vital signs: Vital Signs Temp 98.3 F 06/28/24 20:30 Pulse 81 06/29/24 04:00 Resp 18 06/29/24 04:00 BP 95/59 06/29/24 04:00 Pulse Ox 97 06/29/24 04:00 FiO2 21 06/29/24 04:19 Intake & Output 06/28/24 06/29/24 06/29/24 18:59 06:59 18:59 Intake Total 1446 Output Total 500 500 Balance 946 -500 Weight 144 kg Intake: Intake, IV Titration 100 Amount ceFAZolin 2 gm In Sodium 100 Chloride 0.9% 50 ml @ 100 mls/hr IVPB Q12HR@0000, 1200 [facility] Rx#:[id number] Oral 1346 Output: Urine 500 500 Other: Voiding Method External Catheter External Catheter - Exam -GENERAL: The patient is alert and oriented x3, not in any acute distress. Well developed, well nourished. Obese HEENT: Pupils are round and equally reacting to light. EOMI. No scleral icterus. No conjunctival pallor. Normocephalic, atraumatic. No pharyngeal erythema. No thyromegaly. CARDIOVASCULAR: S1 and S2 present. No murmurs, rubs, or gallops. PULMONARY: Chest is clear to auscultation, no wheezing , no crackles. ABDOMEN: Soft, nontender, nondistended, normoactive bowel sounds. No palpable organomegaly. MUSCULOSKELETAL: No joint swelling or deformity. -EXTREMITIES: No cyanosis, clubbing, or pedal edema. Left leg is swollen, pink, warm and slightly tender. Bilateral pitting leg edema 1+, more on the left side NEUROLOGICAL: Gross neurological examination did not reveal any focal deficits. SKIN: No rashes. no petechiae. - Labs CBC & Chem 7: 06/28/24 07:24 06/28/24 07:24 Labs: Abnormal Lab Results - Last 24 Hours (Table) 06/28/24 06/28/24 06/28/24 Range/Units 07:24 07:24 07:24 RBC 3.64 L (4.30-5.90) m/uL Hgb 12.4 L (13.0-17.5) gm/dL Hct 38.9 L (39.0-53.0) % MCV 106.9 H (80.0-100.0) fL RDW 17.0 H (11.5-15.5) % Plt Count 147 L (150-450) k/uL Lymphocytes # 0.5 L (1.0-4.8) k/uL Macrocytosis Marked A PT 21.0 H (10.0-12.5) sec INR 2.1 H (<1.2) Sodium 136 L (137-145) mmol/L Potassium 3.2 L (3.5-5.1) mmol/L Carbon Dioxide 31 H (22-30) mmol/L BUN 55 H (9-20) mg/dL Creatinine 2.21 H (0.66-1.25) mg/dL Total Bilirubin 5.4 H (0.2-1.3) mg/dL AST 107 H (17-59) U/L Alkaline Phosphatase 134 H (38-126) U/L Total Protein 6.2 L (6.3-8.2) g/dL Albumin 3.0 L (3.5-5.0) g/dL Microbiology - Last 24 Hours (Table) 06/26/24 13:42 Urine Culture - Final Urine,Voided Enterococcus faecalis 06/26/24 17:01 Blood Culture - Preliminary Blood Assessment and Plan Assessment: Acute left leg cellulitis Fall at home Acute urinary tract infection secondary to Enterococcus group D Acute diastolic CHF with preserved ejection fraction Hepatosplenomegaly, patient has been told by Dr. Hansen he has nonalcoholic liver cirrhosis Chronic atrial fibrillations on Coumadin with high INR on admission, currently improved Obesity with BMI of 39.6 History of DVT Plan: Continue with antibiotic as per ID team. Currently cefazolin Continue with IV Lasix 40 mg every 8 hours Continue with warfarin and monitoring INR Zaroxolyn is on hold Labs and medication were reviewed.. Continue same treatment. Continue with symptomatic treatment. Resume home medication. Monitor labs and vitals. DVT and GI prophylaxis. Further recommendations as per clinical course of the patient DVT prophylaxis: Warfarin GI Prophylaxis: Pepcid PT/OT: Pending Prognosis is guarded
[2024-06-29 07:51] LABS: Anisocytosis Slight; Basophils % (A) 1 %; Eosinophils # (A) 0.1 k/uL (0-0.7); Eosinophils % (A) 3 %; HCT 34.6 % (39.0-53.0); HGB 11.5 gm/dL (13.0-17.5); Lymphocytes # (A) 0.6 k/uL (1.0-4.8); Lymphocytes % (A) 12 %; MCH 34.7 pg (25.0-35.0); MCHC 33.1 g/dL (31.0-37.0); MCV 104.9 fL (80.0-100.0); Macrocytosis Moderate; Mean Platelet Volume 8.6; Monocytes # (A) 0.6 k/uL (0-1.0); Monocytes % (A) 12 %; Neutrophils # (A) 3.6 k/uL (1.3-7.7); Neutrophils % (A) 70 %; Platelet Count 158 k/uL (150-450); RDW 17.2 % (11.5-15.5); WBC 5.1 k/uL (3.8-10.6)
[2024-06-29 08:02] LABS: INR 2.2 (<1.2); Prothrombin Time 21.6 sec (10.0-12.5)
[2024-06-29 08:11] LABS: African American GFR (CKD) 27 (>60 ml/min/1.73 sqM); Anion Gap 6 mmol/L; Blood Urea Nitrogen 59 mg/dL (9-20); Carbon Dioxide 33 mmol/L (22-30); Chloride 98 mmol/L (98-107); Glucose 91 mg/dL (74-99); Non-African American GFR(CKD) 24 (>60 ml/min/1.73 sqM); Potassium 3.5 mmol/L (3.5-5.1); Sodium 137 mmol/L (137-145)
[2024-06-29] MEDS: APIXABAN 5 MG TAB PO SCH (10:33)
--- NOTE | 2024-06-29 14:16 | P.PN ---
Subjective Progress Note Date: 06/28/24 Principal diagnosis: Reason for follow-up is left leg cellulitis Patient is a 78-year-old male with a past medical history significant for atrial fibrillation hypertension hyperlipidemia osteoarthritis sleep apnea presenting to the hospital for evaluation of weakness and fall patient has been diagnosed with a left lower extremity cellulitis prompted this consultation. On today's evaluation that is 06/28/2024,the patient remains to be afebrile, patient is on CPAP denies any worsening pain to the left lower extremity. Supplemental oxygen and denies any shortness of breath no chest pain or cough.Patient denies having any nausea or vomiting, no abdominal pain and no diarrhea patient white count 6.2, creatinine is 2.21 Objective - Vital Signs Vital signs: Vital Signs Temp 98.1 F 06/28/24 11:40 Pulse 93 06/28/24 11:40 Resp 16 06/28/24 11:40 BP 88/57 06/28/24 11:40 Pulse Ox 98 06/28/24 11:40 FiO2 21 06/28/24 13:15 Intake & Output 06/27/24 06/28/24 06/28/24 18:59 06:59 18:59 Intake Total 240 326 Output Total 200 600 Balance -200 -360 326 Weight 169.19 kg 136 kg Intake: Oral 240 326 Output: Urine 200 600 Other: Voiding Method External Catheter External Catheter External Catheter # Voids 1 - Exam GENERAL DESCRIPTION: An elderly male lying in bed in no distress RESPIRATORY SYSTEM: Unlabored breathing , decreased breath sounds at bases HEART: S1 S2 regular rate and rhythm , ABDOMEN: Soft , no tenderness EXTREMITIES: Left leg swelling redness slightly decreased - Labs CBC & Chem 7: 06/29/24 07:03 06/29/24 07:03 Labs: Abnormal Lab Results - Last 24 Hours (Table) 06/27/24 06/27/24 06/28/24 Range/Units 10:36 17:00 07:24 RBC (4.30-5.90) m/uL Hgb (13.0-17.5) gm/dL Hct (39.0-53.0) % MCV (80.0-100.0) fL RDW (11.5-15.5) % Plt Count (150-450) k/uL Lymphocytes # (1.0-4.8) k/uL Macrocytosis ESR 31 H (0-20) mm/Hr PT 21.0 H (10.0-12.5) sec INR 2.1 H (<1.2) Sodium (137-145) mmol/L Potassium (3.5-5.1) mmol/L Carbon Dioxide (22-30) mmol/L BUN (9-20) mg/dL Creatinine (0.66-1.25) mg/dL POC Glucose (mg/dL) 133 H (70-110) mg/dL Total Bilirubin (0.2-1.3) mg/dL AST (17-59) U/L Alkaline Phosphatase (38-126) U/L Total Protein (6.3-8.2) g/dL Albumin (3.5-5.0) g/dL 06/28/24 06/28/24 Range/Units 07:24 07:24 RBC 3.64 L (4.30-5.90) m/uL Hgb 12.4 L (13.0-17.5) gm/dL Hct 38.9 L (39.0-53.0) % MCV 106.9 H (80.0-100.0) fL RDW 17.0 H (11.5-15.5) % Plt Count 147 L (150-450) k/uL Lymphocytes # 0.5 L (1.0-4.8) k/uL Macrocytosis Marked A ESR (0-20) mm/Hr PT (10.0-12.5) sec INR (<1.2) Sodium 136 L (137-145) mmol/L Potassium 3.2 L (3.5-5.1) mmol/L Carbon Dioxide 31 H (22-30) mmol/L BUN 55 H (9-20) mg/dL Creatinine 2.21 H (0.66-1.25) mg/dL POC Glucose (mg/dL) (70-110) mg/dL Total Bilirubin 5.4 H (0.2-1.3) mg/dL AST 107 H (17-59) U/L Alkaline Phosphatase 134 H (38-126) U/L Total Protein 6.2 L (6.3-8.2) g/dL Albumin 3.0 L (3.5-5.0) g/dL Microbiology - Last 24 Hours (Table) 06/26/24 13:42 Urine Culture - Preliminary Urine,Voided Group D Enterococcus 06/26/24 17:01 Blood Culture - Preliminary Blood Assessment and Plan (1) Left leg cellulitis Current Visit: Yes Status: Acute Code(s): L03.116 - CELLULITIS OF LEFT LOWER LIMB SNOMED Code(s): 56050672886291605 Plan: 1patient presented to hospital with generalized weakness and falls in this patient who did have chronic swelling to the lower extremity now with worsening swelling redness to the left leg concerning for cellulitis likely streptococcal disease with diffuse swelling and redness no evidence of any purulence 2-patient has been advised Butch wrap however that has not been applied 3-patient to continue with the cefazolin 2 g every 12 hours dose adjusted to the kidney function Dictation was produced using [employer] dictation software. please excuse any grammatical, word or spelling errors. Time with Patient: Less than 30
--- NOTE | 2024-06-29 14:17 | P.PN ---
Subjective Progress Note Date: 06/29/24 Principal diagnosis: Reason for follow-up is left leg cellulitis Patient is a 78-year-old male with a past medical history significant for atrial fibrillation hypertension hyperlipidemia osteoarthritis sleep apnea presenting to the hospital for evaluation of weakness and fall patient has been diagnosed with a left lower extremity cellulitis prompted this consultation. On today's evaluation that is 06/29/2024, the patient continues to be afebrile, the patient is on CPAP complaining of some shortness of breath today but no chest pain or cough no nausea vomiting abdominal pain or pain to the left lower extremity. Patient white count is 5.1, creatinine is 2.53 Objective - Vital Signs Vital signs: Vital Signs Temp 97.6 F 06/29/24 09:09 Pulse 77 06/29/24 11:11 Resp 17 06/29/24 11:11 BP 95/63 06/29/24 11:11 Pulse Ox 95 06/29/24 11:11 FiO2 21 06/29/24 04:19 Intake & Output 06/28/24 06/29/24 06/29/24 18:59 06:59 18:59 Intake Total 1446 358 Output Total 500 500 Balance 946 -500 358 Weight 144 kg Intake: Intake, IV Titration 100 Amount ceFAZolin 2 gm In Sodium 100 Chloride 0.9% 50 ml @ 100 mls/hr IVPB Q12HR@0000, 1200 [facility] Rx#:[id number] Oral 1346 358 Output: Urine 500 500 Other: Voiding Method External Catheter External Catheter External Catheter - Exam GENERAL DESCRIPTION: An elderly male lying in bed in no distress RESPIRATORY SYSTEM: Unlabored breathing , decreased breath sounds at bases HEART: S1 S2 regular rate and rhythm , ABDOMEN: Soft , no tenderness EXTREMITIES: Left leg swelling redness slightly decreased no open wound or any drainage - Labs CBC & Chem 7: 06/29/24 07:03 06/29/24 07:03 Labs: Abnormal Lab Results - Last 24 Hours (Table) 06/29/24 06/29/24 06/29/24 Range/Units 07:03 07:03 07:03 RBC 3.30 L (4.30-5.90) m/uL Hgb 11.5 L (13.0-17.5) gm/dL Hct 34.6 L (39.0-53.0) % MCV 104.9 H (80.0-100.0) fL RDW 17.2 H (11.5-15.5) % Lymphocytes # 0.6 L (1.0-4.8) k/uL PT 21.6 H (10.0-12.5) sec INR 2.2 H (<1.2) Carbon Dioxide 33 H (22-30) mmol/L BUN 59 H (9-20) mg/dL Creatinine 2.53 H (0.66-1.25) mg/dL Microbiology - Last 24 Hours (Table) 06/26/24 13:42 Urine Culture - Final Urine,Voided Enterococcus faecalis 06/26/24 17:01 Blood Culture - Preliminary Blood Assessment and Plan (1) Left leg cellulitis Current Visit: Yes Status: Acute Code(s): L03.116 - CELLULITIS OF LEFT LOWER LIMB SNOMED Code(s): 08397981416752951 Plan: 1patient presented to hospital with generalized weakness and falls in this patient who did have chronic swelling to the lower extremity now with worsening swelling redness to the left leg concerning for cellulitis likely streptococcal disease with diffuse swelling and redness no evidence of any purulence 2-patient has been advised Butch wrap however that has not been applied 3-patient did have some improvement to the left lower extremity cellulitis, to continue with the cefazolin 2 g every 12 hours while inpatient Dictation was produced using [employer] dictation software. please excuse any grammatical, word or spelling errors. Time with Patient: Less than 30
--- NOTE | 2024-06-29 14:18 | P.PN ---
Subjective Progress Note Date: 06/29/24 Consult reason: congestive heart failure History of present illness: This is a 78-year-old patient of Dr. Deleon with past medical history of morbid obesity, permanent atrial fibrillation on Coumadin, hypertension, dyslipidemia, history of DVT, dilated thoracic aorta and valvular heart disease, pulmonary hypertension. We have been asked to evaluate the patient for heart failure. Patient gives history that he had a fall at home. He states his knee gave out on him. He complains of shortness of breath. He feels poorly in general. He is not very active at home. He denies having any fever. No history of smoking. No palpitations. Edema which she states is at his baseline. No blood in his stool or urine. No history of stroke or seizure. EKG: Atrial fibrillation with nonspecific ST-T wave changes Chest x-ray: Small right pleural effusion Laboratory studies: WBC 8.6, hemoglobin 12.2, platelet count 132. Initial INR 10 and repeat 3 following vitamin K. Sodium 136, potassium 3.2, BUN 51 creatinine 2.13. Total bilirubin 1.5, AST 167, alkaline phosphatase 133. Troponin negative x 1. Influenza A, influenza B, RSV, COVID-19 not detected. Home cardiac medications: Lasix 40 mg twice daily, Zaroxolyn 2.5 mg every 48 hours, Lopressor 200 mg twice daily, Coumadin 5 mg daily. Echocardiogram performed in the office on 06/24/2023 revealed EF of 50 to 55%, moderate concentric left trickle hypertrophy, severely dilated right atrium calcified aortic valve, moderate mitral regurgitation, moderate tricuspid regurgitation, pulmonary artery systolic pressure of 65 mmHg. Lexiscan Cardiolite stress test performed in the office on 06/04/2022 was nondiagnostic electrocardiographic stress testing and response to Lexiscan. Normal myocardial perfusion imaging. No evidence of any stress-induced ischemia. Normal left ventricular systolic function. 06/28 Blood pressure is on the low side this morning at 95/59. Heart rate is in the 80s and 90s, pulse ox 98% on room air. Patient received his Lopressor but nursing held his Lasix which should be given now. He remains in atrial fibrillation with rate control. He has been maintained on IV Lasix 40 mg every 8 hours. Repeat blood work reveals hemoglobin of 12.4. INR 2.1 potassium 3.2 and has been replaced. BUN 55 creatinine 2.21. proBNP 12,300. Echocardiogram reveals EF of 50 to 55%, severe pulmonary hypertension, severely enlarged right ventricle, moderate MR, severe TR, small pericardial effusion. Results of echocardiogram reviewed with the patient. Regarding Eliquis, patient has a $45 co-pay per month. 06/29 Patient is complaining of back pain but no chest pain today in general feels okay. He is currently on a BiPAP. Lower extremity edema is improving he is complaining of itchiness sensation to the left leg and he continues to have erythema. He is on IV Lasix 40 mg every 8 hours. Blood pressure 121/75, heart rate 78, pulse ox 98% on room air. Repeat blood work reveals hemoglobin 11.5. INR 2.2. BUN 29 creatinine 2.53. Yesterday, we did check coverage for Eliquis and he is willing to pay co-pay. As soon as INR is below 2, Eliquis will be started. Physical examination: Gen: This is a morbidly obese 78-year-old male appears to be in no acute distress VS: reviewed HEENT: Head is atraumatic, normocephalic. Pupils equal, round. Sclerae is anicteric. NECK: Supple. No JVD. LUNGS: Clear to auscultation. No wheezes or rhonchi. No intercostal retractions. HEART: Irregular rate and rhythm. Systolic murmur ABDOMEN: Soft No tenderness. EXTREMITIES: Bilateral lower extremity edema. No calf tenderness. NEUROLOGICAL: Patient is awake, alert and oriented x3. Assessment: Generalized weakness and fall Permanent atrial fibrillation on Coumadin and will transition to Eliquis once INR is less than 2 Lower extremity edema and acute on chronic diastolic heart failure Supratherapeutic INR Hypertension Dyslipidemia History of DVT Dilated thoracic aorta Valvular heart disease with moderate MR, moderate to severe pulmonary hypertension Plan: Continue patient on the following: Farxiga 10 mg daily, Lopressor 200 mg twice daily Continue IV Lasix 40 mg and decrease frequency to every 12 hours for another 24 hours Monitor BALAJI, daily weight, electrolytes and renal function Monitor INR Further recommendations to follow based upon clinical course Nurse practitioner note has been reviewed, I agree with documented findings and plan of care. Patient was seen and examined. Objective - Vital Signs Vital signs: Vital Signs Temp 97.6 F 06/29/24 09:09 Pulse 77 06/29/24 11:11 Resp 17 06/29/24 11:11 BP 95/63 06/29/24 11:11 Pulse Ox 95 06/29/24 11:11 FiO2 21 06/29/24 04:19 Intake & Output 06/28/24 06/29/24 06/29/24 18:59 06:59 18:59 Intake Total 1446 358 Output Total 500 500 Balance 946 -500 358 Weight 144 kg Intake: Intake, IV Titration 100 Amount ceFAZolin 2 gm In Sodium 100 Chloride 0.9% 50 ml @ 100 mls/hr IVPB Q12HR@0000, 1200 [facility] Rx#:[id number] Oral 1346 358 Output: Urine 500 500 Other: Voiding Method External Catheter External Catheter External Catheter - Labs CBC & Chem 7: 06/29/24 07:03 06/29/24 07:03 Labs: Abnormal Lab Results - Last 24 Hours (Table) 06/29/24 06/29/24 06/29/24 Range/Units 07:03 07:03 07:03 RBC 3.30 L (4.30-5.90) m/uL Hgb 11.5 L (13.0-17.5) gm/dL Hct 34.6 L (39.0-53.0) % MCV 104.9 H (80.0-100.0) fL RDW 17.2 H (11.5-15.5) % Lymphocytes # 0.6 L (1.0-4.8) k/uL PT 21.6 H (10.0-12.5) sec INR 2.2 H (<1.2) Carbon Dioxide 33 H (22-30) mmol/L BUN 59 H (9-20) mg/dL Creatinine 2.53 H (0.66-1.25) mg/dL Microbiology - Last 24 Hours (Table) 06/26/24 13:42 Urine Culture - Final Urine,Voided Enterococcus faecalis 06/26/24 17:01 Blood Culture - Preliminary Blood
--- NOTE | 2024-06-29 14:47 | HP ---
HISTORY AND PHYSICAL CHIEF COMPLAINT: Weakness and fall. HISTORY OF PRESENT ILLNESS: A 78-year-old gentleman with a past medical history of atrial fibrillation, DVT, supraventricular tachycardia, and CHF, being followed with Dr. Deleon in the outpatient setting, was complaining of generalized weak and tiredness. The patient apparently fall. The patient complained of right shoulder pain. INR was elevated. There is no history of any fever, rigors, or chills. Bilateral leg swelling and cellulitis were also noted. PAST MEDICAL HISTORY: Atrial fibrillation, DVT, and CHF. Rest of history and rest of the chart is also reviewed. HOME MEDICATIONS: Reviewed include Coumadin and Tamiflu, dose and rest of medications reviewed, not confirmed. ALLERGIES: Dust. FAMILY HISTORY: History of cancer. SOCIAL HISTORY: No history of smoking or alcohol. REVIEW OF SYSTEMS: Fourteen-point review of systems negative except as mentioned earlier. PHYSICAL EXAMINATION: VITAL SIGNS: Pulse is 90, blood pressure 101/60, and respirations 18. HEENT: Conjunctivae normal. NECK: No jugular venous distention. CARDIOVASCULAR: S1 and S2. RESPIRATION: Breath sounds diminished at the bases. Few scattered rhonchi and crackles. ABDOMEN: Soft and nontender. LEGS: Bilateral leg edema. NERVOUS SYSTEM: No focal deficit. SKIN: No ulcer, rash, bleeding. JOINTS: No active deforming arthropathy. LABORATORY DATA: WBC 12.6. Creatinine 2.19. ASSESSMENT: 1. Weakness and fall. 2. Acute on chronic renal failure with creatinine 2.19. 3. Influenza. 4. History of congestive heart failure. 5. Bilateral leg swelling and leg cellulitis. 6. Hypertension. 7. Hyperlipidemia. 8. History of deep vein thrombosis. 9. Atrial fibrillation. 10.Multiple complex medical issues. RECOMMENDATION: This 78-year-old gentleman who presented with multiple complex medical issues. We will monitor the patient closely. Recommend to continue current management and symptomatic treatment, and I would recommend Nephrology and Cardiology consultations. Creatinine is elevated. 2D echo results not available. I will recommend a 2D echo and complete cardiac workup also. Empiric antibiotics. Infectious disease evaluation. Overall prognosis is guarded because of multiple complex medical conditions. Further recommendations to follow. See orders for details. Also, recommend x-rays of the right arm also. MMODL / IJN: [id number] /
[2024-06-29] MEDS: FUROSEMIDE 10 MG/ML 4 ML VIAL IV SCH (20:29)
[2024-06-30 01:29] LABS: Glucose,Whole Blood 108 mg/dL (70-110)
[2024-06-30] MEDS ORDERED: HYDROcodone/APAP 5-325MG 1 EACH TAB ONE (03:35)
--- NOTE | 2024-06-30 07:30 | P.PN ---
Subjective History of present illness; patient 78-year-old gentleman with past medical history significant for A-fib, DVT, hypertension, hyperlipidemia presented the ER because of worsening weakness and fall. Patient states that for the last few days he has been noticing that his left lower leg was getting red and more painful. Patient has history of lower extremity swelling and normally wraps them to help with swelling. There was no complaint of fever or chills. Patient has been complaining of increasing weakness. Patient had a fall yesterday. Th ere was no complaint of any trauma to the head. There was no loss of consciousness. Denied any chest pain or shortness of breath. Because of the symptoms, patient brought to the ER Initial lab work done in the ER showed showed WBC 1.7, hemoglobin 12.6, platelet count 169, INR 10, sodium 136, potassium 3.5, BUN 52, creatinine 2.19, glucose 117, bilirubin 5 AST 167, ALT 48 troponin 0.012, albumin 3.2 UA positive for leukocyte esterase, urine WBC 14 Influenza A not detected Influenza B not detected RSV not detected COVID-19 not detected X-ray of pelvis done, no evidence of any fractures EKG done in the ER showed heart rate of 94, no ST segment elevation or depression seen, no T-wave inversions seen. Chest x-ray done in the ER showed small right pleural effusion CT head done showed no acute intracranial process CT cervical spine done showed no fractures. Duplex ultrasound of lower extremities done showed no DVT Patient admitted to internal medicine service 06/28 Patient is lying in bed does not look in distress He still complaining from some pain in his left leg about 3/10, his left leg swollen pink warm and tender He has been treated for CHF, he has bilateral leg swelling, it is hard to hear basal crepitation as he is obese He still feels generally weak No other new complaint He is currently treated with cefazolin but urine culture is growing Enterococcus. Patient denies overt UTI signs symptoms currently Also is on IV Lasix 40 mg 3 times a day He was given warfarin 5 mg after INR came down to 3.0 down to 2.1 today Procalcitonin [place] [id number] Creatinine 2.2 today, was 2.1 last 2 days, baseline 1.4-1.7 Blood pressure is borderline 06/29 his left leg cellulitis is improving, still has swollen of the legs. No chest pain or dyspnea or other new complaint He is using CPAP machine at night Vitals are stable Labs from today are still pending. Yesterday his INR was therapeutic at 2.1. Urine culture is growing Enterococcus which is sensitive Continue with Coumadin. He denies any urinary tract symptoms he has external urinary catheter. Keep monitoring creatinine 06/30 Patient awake alert, using CPAP machine overnight. Denies chest pain or dyspnea He still complains from right shoulder pain from falling prior to coming to the hospital. He cannot raise his arm above his head with some limitation. We are going to order x-ray of the right shoulder. He still have generalized weakness He still have significant 3+ bilateral leg swelling, he is on IV Lasix 40 mg twice daily. However his INR has been trending up. Creatinine was 2.5 yes terday. From today still pending. Patient feels dry. His left leg cellulitis improving on IV cefazolin He continued on warfarin for his history of DVT and A-fib, INR is therapeutic. Review of systems CONSTITUTIONAL: No fever, no malaise, no fatigue. HEENT: No recent visual problems or hearing problems. Denied any sore throat. NEUROLOGICAL: No headaches, no weakness, no numbness. HEMATOLOGICAL: Denies any bleeding or petechiae. GENITOURINARY: Denies any burning micturition, frequency, or urgency. MUSCULOSKELETAL/RHEUMATOLOGICAL: Denies any joint pain, swelling, or any muscle pain. ENDOCRINE: Denies any polyuria or polydipsia. Active Medications Generic Name Dose Route Start Last Admin Trade Name Freq PRN Reason Stop Dose Admin Acetaminophen 650 mg 06/28/24 19:35 06/29/24 20:32 Acetaminophen Tab 325 Mg Tab PO 650 mg Q6HR PRN Administration Fever and/ or Pain Hydrocodone Bitart/Acetaminophen 1 each 06/26/24 15:50 Hydrocodone/Apap 5-325mg 1 Each Tab PO Q6HR PRN Pain Apixaban 5 mg 06/29/24 09:00 06/29/24 20:28 Apixaban 5 Mg Tab PO Not Given BID [facility] Protocol Cholecalciferol 50 mcg 06/28/24 09:00 06/29/24 09:12 Cholecalciferol 25 Mcg (1000 Iu) Tablet PO 50 mcg DAILY SOFI Administration Citalopram Hydrobromide 10 mg 06/28/24 09:00 06/29/24 09:12 Citalopram Hydrobromide 10 Mg Tab PO 10 mg DAILY SOFI Administration Dapagliflozin 10 mg 06/27/24 09:00 06/29/24 09:12 Dapagliflozin Propanediol 10 Mg Tablet PO 10 mg DAILY SOFI Administration Furosemide 40 mg 06/29/24 21:00 06/29/24 20:29 Furosemide 10 Mg/Ml 4 Ml Vial IV 40 mg Q12HR SOFI Administration Hydromorphone HCl 0.5 mg 06/26/24 15:50 Hydromorphone 0.5 Mg/0.5 Ml Syringe IVP Q6HR PRN Severe Pain (Scale 7 to 10) Sodium Chloride 1,000 mls @ 20 mls/hr 06/26/24 18:00 06/29/24 18:28 Saline 0.9% IV 20 mls/hr .Q24H SOFI Administration Cefazolin Sodium 2 gm/ Sodium 50 mls @ 100 mls/hr 06/29/24 00:00 06/29/24 23:29 Chloride IVPB 100 mls/hr Q12HR@0000,1200 SOFI Administration Protocol Latanoprost 1 drops 06/27/24 21:00 06/29/24 20:30 Latanoprost 0.005% Ophth Drops 2.5 Ml Btl RIGHT EYE 1 drops HS SOFI Administration Metoprolol Tartrate 200 mg 06/27/24 09:00 06/29/24 20:29 Metoprolol Tartrate 50 Mg Tab PO 200 mg BID SOFI Administration Miscellaneous Information 1 each 06/27/24 21:02 Potassium Replacement Protocol 1 Each Misc MISCELLANE DAILY PRN Per Protocol Protocol Naloxone HCl 0.2 mg 06/26/24 17:49 Naloxone 0.4 Mg/Ml 1 Ml Vial IV Q2M PRN Opioid Reversal Petrolatum 1 applic 06/28/24 15:40 06/28/24 16:47 Zinc Oxide Paste (Z-Guard) 1 Applic TOPICAL 1 applic Q2HR PRN Administration Wound Healing Protocol Potassium Chloride 20 meq 06/28/24 12:45 06/29/24 09:12 Potassium Chloride Er 20 Meq Tab.Er PO 20 meq DAILY SOFI Administration Probenecid 500 mg 06/27/24 21:00 06/29/24 20:33 Probenecid 500 Mg Tab PO 500 mg BID SOFI Administration Objective - Vital Signs Vital signs: Vital Signs Temp 97.9 F 06/29/24 20:30 Pulse 82 06/30/24 04:00 Resp 18 06/30/24 04:00 BP 92/58 06/30/24 04:00 Pulse Ox 98 06/30/24 04:00 FiO2 21 06/29/24 23:31 Intake & Output 06/29/24 06/30/24 06/30/24 18:59 06:59 18:59 Intake Total 594 480 Output Total 600 Balance -6 480 Weight 153 kg Intake: Oral 594 480 Output: Urine 600 Other: Voiding Method External Catheter External Catheter - Exam -GENERAL: The patient is alert and oriented x3, not in any acute distress. Well developed, well nourished. Obese HEENT: Pupils are round and equally reacting to light. EOMI. No scleral icterus. No conjunctival pallor. Normocephalic, atraumatic. No pharyngeal erythema. No thyromegaly. CARDIOVASCULAR: S1 and S2 present. No murmurs, rubs, or gallops. PULMONARY: Chest is clear to auscultation, no wheezing , no crackles. ABDOMEN: Soft, nontender, nondistended, normoactive bowel sounds. No palpable organomegaly. MUSCULOSKELETAL: No joint swelling or deformity. -EXTREMITIES: No cyanosis, clubbing, , 3+ bilateral pitting leg edema. Left leg is swollen, pink, warm and slightly tender. Bilateral pitting leg edema 1+, more on the left side NEUROLOGICAL: Gross neurological examination did not reveal any focal deficits. SKIN: No rashes. no petechiae. - Labs CBC & Chem 7: 06/29/24 07:03 06/29/24 07:03 Labs: Abnormal Lab Results - Last 24 Hours (Table) 06/29/24 06/29/24 06/29/24 Range/Units 07:03 07:03 07:03 RBC 3.30 L (4.30-5.90) m/uL Hgb 11.5 L (13.0-17.5) gm/dL Hct 34.6 L (39.0-53.0) % MCV 104.9 H (80.0-100.0) fL RDW 17.2 H (11.5-15.5) % Lymphocytes # 0.6 L (1.0-4.8) k/uL PT 21.6 H (10.0-12.5) sec INR 2.2 H (<1.2) Carbon Dioxide 33 H (22-30) mmol/L BUN 59 H (9-20) mg/dL Creatinine 2.53 H (0.66-1.25) mg/dL Microbiology - Last 24 Hours (Table) 06/26/24 17:01 Blood Culture - Preliminary Blood Assessment and Plan Assessment: Acute left leg cellulitis Fall at home Acute urinary tract infection secondary to Enterococcus group D Acute diastolic CHF with preserved ejection fraction Hepatosplenomegaly, patient has been told by Dr. Hansen he has nonalcoholic liver cirrhosis Chronic atrial fibrillations on Coumadin with high INR on admission, currently improved Obesity with BMI of 39.6 History of DVT Plan: Continue with antibiotic as per ID team. Currently cefazolin Continue with IV Lasix 40 mg every 8 hours, alert yesterday to 12-hour. This morning I discussed with the bedside nurse to hold his Lasix Monitor creatinine and consider nephrology consult if continue to worsen Check right shoulder x-ray Cardiology team consult Continue with warfarin and monitoring INR Zaroxolyn is on hold Labs and medication were reviewed.. Continue same treatment. Continue with symptomatic treatment. Resume home medication. Monitor labs and vitals. DVT and GI prophylaxis. Further recommendations as per clinical course of the patient DVT prophylaxis: Warfarin GI Prophylaxis: Pepcid PT/OT: Pending Prognosis is guarded
[2024-06-30 09:30] LABS: Anisocytosis Slight; Basophils # (A) 0.1 k/uL (0-0.2); Basophils % (A) 1 %; Eosinophils # (A) 0.1 k/uL (0-0.7); Eosinophils % (A) 2 %; HCT 34.5 % (39.0-53.0); HGB 11.6 gm/dL (13.0-17.5); Lymphocytes # (A) 0.5 k/uL (1.0-4.8); Lymphocytes % (A) 11 %; MCH 35.1 pg (25.0-35.0); MCHC 33.7 g/dL (31.0-37.0); MCV 104.2 fL (80.0-100.0); Macrocytosis Moderate; Monocytes # (A) 0.6 k/uL (0-1.0); Monocytes % (A) 12 %; Neutrophils # (A) 3.7 k/uL (1.3-7.7); Neutrophils % (A) 72 %; Platelet Count 153 k/uL (150-450); RBC 3.31 m/uL (4.30-5.90); RDW 18.3 % (11.5-15.5); WBC 5.2 k/uL (3.8-10.6)
[2024-06-30 09:42] LABS: INR 2.1 (<1.2); Prothrombin Time 21.1 sec (10.0-12.5)
--- NOTE | 2024-06-30 10:00 | XR ---
EXAMINATION TYPE: XR shoulder limited RT DATE OF EXAM: 06/30/2024 COMPARISON: 06/26/2024 HISTORY: Pain TECHNIQUE: Three views are submitted. FINDINGS: The osseous structures are intact. There is no acute fracture or dislocation. Mild AC joint and milton ohumeral joint arthropathy. Mild generalized demineralization. On the oblique view there is increased density within the lung. IMPRESSION: 1. Mild AC joint and glenoid joint arthropathy. 2. Increased density along the peripheral margin of the lungs may be related to positioning. May be r elated to recent chest x-ray of the right pleural effusion. [facility], , 06/30/2024 9:47 AM
[2024-06-30 10:09] LABS: ALT 8 U/L (4-49); AST 90 U/L (17-59); African American GFR (CKD) 23 (>60 ml/min/1.73 sqM); Albumin 2.8 g/dL (3.5-5.0); Alkaline Phosphatase 153 U/L (38-126); Anion Gap 6 mmol/L; Bilirubin, Conjugated 0.5 mg/dL (0.0-0.3); Bilirubin, Delta 2.3 mg/dL (0.0-0.2); Bilirubin,Unconjugated 0.6 mg/dL (0.0-1.1); Blood Urea Nitrogen 69 mg/dL (9-20); Carbon Dioxide 32 mmol/L (22-30); Chloride 96 mmol/L (98-107); Glucose 118 mg/dL (74-99); Non-African American GFR(CKD) 20 (>60 ml/min/1.73 sqM); Potassium 3.8 mmol/L (3.5-5.1); Sodium 134 mmol/L (137-145); Total Bilirubin 3.4 mg/dL (0.2-1.3); Total Protein 5.9 g/dL (6.3-8.2)
--- NOTE | 2024-06-30 12:00 | P.NPCON ---
History of Present Illness - Reason for Consult acute renal failure, chronic renal failure - History of Present Illness Reason for consultation: Acute kidney injury on chronic kidney disease History of present illness: Patient is a 78-year-old male seen in renal consultation for acute kidney injury on chronic kidney disease. Patient has chronic kidney disease stage IIIb with baseline creatinine near 1.5 dated March 17, 2024. This admission his creatinine was 2.19 and is up to 2.89 today. Patient has been receiving IV Lasix and has an external catheter. Urine output documented as 600 cc as of last night. Patient came to the hospital after he sustained a fall due to his knee giving out. He denies losing consciousness. Patient does have history of diastolic CHF with moderate mitral consultation, severe tricuspid regurgitation and severe pulmonary hypertension. Patient admits to significant edema in his lower extremities. He is currently being treated for right lower extremity cellulitis . Urine culture was also positive for Enterococcus. He denies gross hematuria or dysuria. States urine output has been less than usual. Ultrasound showed no evidence of hydronephrosis. He denies history of diabetes. Denies history of coronary artery disease. No vomiting or diarrhea. Oral intake is poor. He denies regular use of nonsteroidals. Vital signs are stable. General: No acute distress. HEENT: Head exam is unremarkable. LUNGS: No audible rhonchi or wheezes. HEART: Rate and Rhythm are regular. ABDOMEN: Obese, nontender. EXTREMITITES: Right lower extremity erythema noted. No drainage. 3+ edema left lower extremity. Past Medical History Past Medical History: Atrial Fibrillation, Deep Vein Thrombosis (DVT), Eye Disorder, Hyperlipidemia, Hypertension, Osteoarthritis (OA), Sleep Apnea/CPAP/BIPAP, Supraventricular Tachycardia (SVT) Additional Past Medical History / Comment(s): HX MALARIA. GOUT. POSS TOMMY- PARKINSON WHITE SYNDROME. UNABLE TO TOLERATE CPAP. GLAUCOMA, HEMORRHOIDS. PRE-CA LESIONS ON SCALP. GLAUCOMA, History of Any Multi-Drug Resistant Organisms: None Reported Past Surgical History: Orthopedic Surgery, Tonsillectomy Additional Past Surgical History / Comment(s): TONSILS X2. JEANE EYES FOR GLAUCOMA , RT KNEE-ARTHROSCOPIC , BILATERAL CARPAL TUNNEL RELEASE Past Anesthesia/Blood Transfusion Reactions: No Reported Reaction Past Psychological History: Depression Smoking Status: Never smoker Past Alcohol Use History: None Reported Past Drug Use History: None Reported - Past Family History Mother Family Medical History: Cancer Father Family Medical History: Cancer Medications and Allergies Home Medications Medication Instructions Recorded Confirmed Type Probenecid 500 mg PO BID 07/09/15 06/26/24 History Warfarin [Coumadin] 5 mg PO DAILY 07/09/15 06/26/24 History Cholecalciferol (Vitamin D3) 50 mcg PO DAILY 06/26/24 06/26/24 History [Vitamin D3 (50 Mcg = 2000 Iu)] Citalopram Hydrobromide [CeleXA] 10 mg PO DAILY 06/26/24 06/26/24 History Colchicine 0.6 mg PO BID 06/26/24 06/26/24 History Furosemide [Lasix] 40 mg PO BID@0900,1500 06/26/24 06/26/24 History Latanoprost [Latanoprost 0.005%] 1 drop RIGHT EYE HS 06/26/24 06/26/24 History Metoprolol Tartrate [Lopressor] 200 mg PO BID 06/26/24 06/26/24 History metOLazone [Zaroxolyn] 2.5 mg PO Q48H 06/26/24 06/26/24 History Apixaban [Eliquis] 5 mg PO BID #60 tab 06/27/24 Rx Allergies Allergy/AdvReac Type Severity Reaction Status Date / Time DUST, MOLD Allergy SNEEZING, Uncoded 06/26/24 16:59 RHINITIS POLLEN Allergy SNEEZING, Uncoded 06/26/24 16:59 RHINITIS Physical Exam Vitals: Vital Signs Temp Pulse Pulse Resp BP Pulse Ox FiO2 06/30/24 08:00 86 16 79/53 95 06/30/24 04:00 82 18 92/58 98 06/30/24 00:20 99 18 76/44 98 06/30/24 00:10 79/48 06/29/24 23:31 21 06/29/24 20:53 21 06/29/24 20:30 97.9 F 85 18 93/59 96 06/29/24 15:13 82 17 92/64 100 Intake and Output 06/29/24 06/30/24 06/30/24 22:59 06:59 14:59 Intake Total 598 120 Output Total 600 Balance -2 120 Intake: Oral 598 120 Output: Urine 600 Other: Voiding Method External Catheter External Catheter External Catheter Weight 153 kg Results - Lab Results Most recent lab results Calcium 9.0 mg/dL (8.4-10.2) 06/30/24 08:41 Magnesium 1.9 mg/dL (1.6-2.3) 06/26/24 13:29 06/30/24 08:41 06/30/24 08:41 Assessment and Plan Plan: Assessment: 1. Acute kidney injury secondary to ATN secondary to hypotension and cardiorenal syndrome. Creatinine 2.89 today. No hydronephrosis noted on ultrasound. Trace protein on UA. 2. 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 Creatinine 1.5 in March 2024. 3. Acute on chronic diastolic CHF and moderate mitral consultation, severe tricuspid regurgitation and pulmonary hypertension. 4. Volume overload. 5. Right lower extremity cellulitis and Enterococcus UTI on antibiotics. ID following. 6. Hypervolemic hyponatremia. Plan: Hep-Lock IV fluids. Start Lasix drip at 5 cc an hour. Low-salt diet and 1500 cc fluid restriction. Add midodrine 10 mg 3 times daily. Hold for systolic blood pressure greater than 110. Stop Farxiga due to acute infection. Avoid nephrotoxins. Continue to monitor renal function and urine output. Thank you for the consultation. I will continue to follow the patient with you during his hospital stay.
[2024-06-30] MEDS: FUROSEMIDE 100 MG in SODIUM CHLORIDE 0.9% 90 ML IV SCH (14:00)
--- NOTE | 2024-06-30 15:08 | P.PN ---
Subjective Progress Note Date: 06/30/24 Consult reason: congestive heart failure History of present illness: This is a 78-year-old patient of Dr. Deleon with past medical history of morbid obesity, permanent atrial fibrillation on Coumadin, hypertension, dyslipidemia, history of DVT, dilated thoracic aorta and valvular heart disease, pulmonary hypertension. We have been asked to evaluate the patient for heart failure. Patient gives history that he had a fall at home. He states his knee gave out on him. He complains of shortness of breath. He feels poorly in general. He is not very active at home. He denies having any fever. No history of smoking. No palpitations. Edema which she states is at his baseline. No blood in his stool or urine. No history of stroke or seizure. EKG: Atrial fibrillation with nonspecific ST-T wave changes Chest x-ray: Small right pleural effusion Laboratory studies: WBC 8.6, hemoglobin 12.2, platelet count 132. Initial INR 10 and repeat 3 following vitamin K. Sodium 136, potassium 3.2, BUN 51 creatinine 2.13. Total bilirubin 1.5, AST 167, alkaline phosphatase 133. Troponin negative x 1. Influenza A, influenza B, RSV, COVID-19 not detected. Home cardiac medications: Lasix 40 mg twice daily, Zaroxolyn 2.5 mg every 48 hours, Lopressor 200 mg twice daily, Coumadin 5 mg daily. Echocardiogram performed in the office on 06/24/2023 revealed EF of 50 to 55%, moderate concentric left trickle hypertrophy, severely dilated right atrium calcified aortic valve, moderate mitral regurgitation, moderate tricuspid regurgitation, pulmonary artery systolic pressure of 65 mmHg. Lexiscan Cardiolite stress test performed in the office on 06/04/2022 was nondiagnostic electrocardiographic stress testing and response to Lexiscan. Normal myocardial perfusion imaging. No evidence of any stress-induced ischemia. Normal left ventricular systolic function. 06/28 Blood pressure is on the low side this morning at 95/59. Heart rate is in the 80s and 90s, pulse ox 98% on room air. Patient received his Lopressor but nursing held his Lasix which should be given now. He remains in atrial fibrillation with rate control. He has been maintained on IV Lasix 40 mg every 8 hours. Repeat blood work reveals hemoglobin of 12.4. INR 2.1 potassium 3.2 and has been replaced. BUN 55 creatinine 2.21. proBNP 12,300. Echocardiogram reveals EF of 50 to 55%, severe pulmonary hypertension, severely enlarged right ventricle, moderate MR, severe TR, small pericardial effusion. Results of echocardiogram reviewed with the patient. Regarding Eliquis, patient has a $45 co-pay per month. 06/29 Patient is complaining of back pain but no chest pain today in general feels okay. He is currently on a BiPAP. Lower extremity edema is improving he is complaining of itchiness sensation to the left leg and he continues to have erythema. He is on IV Lasix 40 mg every 8 hours. Blood pressure 121/75, heart rate 78, pulse ox 98% on room air. Repeat blood work reveals hemoglobin 11.5. INR 2.2. BUN 29 creatinine 2.53. Yesterday, we did check coverage for Eliquis and he is willing to pay co-pay. As soon as INR is below 2, Eliquis will be started. 06/30 Blood pressure this morning is 79/53 and he has been running on the lower side. Patient is due for metoprolol 200 mg. He is currently on IV Lasix 40 mg every 12 hours. Patient is utilizing BiPAP. He states he did better through the night and breathing is better today. Lower extremity edema is improving although still present. Blood pressure 79/53, heart rate 86, pulse ox 95% on room air. Repeat blood work reveals hemoglobin 11.6. INR is 2.1. BUN 69, creatinine 2.89, potassium 3.8. Physical examination: Gen: This is a morbidly obese 78-year-old male appears to be in no acute distress VS: reviewed HEENT: Head is atraumatic, normocephalic. Pupils equal, round. Sclerae is anicteric. NECK: Supple. No JVD. LUNGS: Clear to auscultation. No wheezes or rhonchi. No intercostal retractions. HEART: Irregular rate and rhythm. Systolic murmur ABDOMEN: Soft No tenderness. EXTREMITIES: Bilateral lower extremity edema. No calf tenderness. NEUROLOGICAL: Patient is awake, alert and oriented x3. Assessment: Generalized weakness and fall Permanent atrial fibrillation on Coumadin and will transition to Eliquis once INR is less than 2 Lower extremity edema and acute on chronic diastolic heart failure Supratherapeutic INR Hypertension Dyslipidemia History of DVT Dilated thoracic aorta Valvular heart disease with moderate MR, moderate to severe pulmonary hypertension Plan: Continue patient on the following: Farxiga 10 mg daily Decrease Lopressor to 100 mg twice daily Hold Lasix Monitor BALAJI, daily weight, electrolytes and renal function Monitor INR and start Eliquis once INR is less than 2 Further recommendations to follow based upon clinical course Nurse practitioner note has been reviewed, I agree with documented findings and plan of care. Patient was seen and examined. Objective - Vital Signs Vital signs: Vital Signs Temp 97.9 F 06/29/24 20:30 Pulse 86 06/30/24 08:00 Resp 16 06/30/24 08:00 BP 79/53 06/30/24 08:00 Pulse Ox 95 06/30/24 08:00 FiO2 21 06/29/24 23:31 Intake & Output 06/29/24 06/30/24 06/30/24 18:59 06:59 18:59 Intake Total 594 480 120 Output Total 600 Balance -6 480 120 Weight 153 kg Intake: Oral 594 480 120 Output: Urine 600 Other: Voiding Method External Catheter External Catheter - Labs CBC & Chem 7: 06/30/24 08:41 06/30/24 08:41 Labs: Abnormal Lab Results - Last 24 Hours (Table) 06/30/24 06/30/24 06/30/24 Range/Units 08:41 08:41 08:41 RBC 3.31 L (4.30-5.90) m/uL Hgb 11.6 L (13.0-17.5) gm/dL Hct 34.5 L (39.0-53.0) % MCV 104.2 H (80.0-100.0) fL MCH 35.1 H (25.0-35.0) pg RDW 18.3 H (11.5-15.5) % Lymphocytes # 0.5 L (1.0-4.8) k/uL PT 21.1 H (10.0-12.5) sec INR 2.1 H (<1.2) Sodium 134 L (137-145) mmol/L Chloride 96 L (98-107) mmol/L Carbon Dioxide 32 H (22-30) mmol/L BUN 69 H (9-20) mg/dL Creatinine 2.89 H (0.66-1.25) mg/dL Glucose 118 H (74-99) mg/dL Total Bilirubin 3.4 H (0.2-1.3) mg/dL Conjugated Bilirubin 0.5 H (0.0-0.3) mg/dL Delta Bilirubin 2.3 H (0.0-0.2) mg/dL AST 90 H (17-59) U/L Alkaline Phosphatase 153 H (38-126) U/L Total Protein 5.9 L (6.3-8.2) g/dL Albumin 2.8 L (3.5-5.0) g/dL Microbiology - Last 24 Hours (Table) 06/26/24 17:01 Blood Culture - Preliminary Blood
--- NOTE | 2024-06-30 15:24 | P.PN ---
Subjective Progress Note Date: 06/30/24 Principal diagnosis: Reason for follow-up is left leg cellulitis Patient is a 78-year-old male with a past medical history significant for atrial fibrillation hypertension hyperlipidemia osteoarthritis sleep apnea presenting to the hospital for evaluation of weakness and fall patient has been diagnosed with a left lower extremity cellulitis prompted this consultation. On today's evaluation that is 06/30/2024, Patient is afebrile patient is currently on room air and denies having any shortness of breath, the patient denies any chest pain or cough, the patient denies any nausea vomiting did not have any abdominal pain and no diarrhea, the patient or extremity swelling redness has decreased in intensity. Patient white count is 5.2, creatinine is 2.89 blood culture negative urine with Enterococcus faecalis Objective - Vital Signs Vital signs: Vital Signs Temp 97.9 F 06/29/24 20:30 Pulse 86 06/30/24 08:00 Resp 16 06/30/24 08:00 BP 79/53 06/30/24 08:00 Pulse Ox 95 06/30/24 08:00 FiO2 21 06/29/24 23:31 Intake & Output 06/29/24 06/30/24 06/30/24 18:59 06:59 18:59 Intake Total 594 480 120 Output Total 600 Balance -6 480 120 Weight 153 kg Intake: Oral 594 480 120 Output: Urine 600 Other: Voiding Method External Catheter External Catheter External Catheter - Exam GENERAL DESCRIPTION: An elderly male lying in bed in no distress RESPIRATORY SYSTEM: Unlabored breathing , decreased breath sounds at bases HEART: S1 S2 regular rate and rhythm , ABDOMEN: Soft , no tenderness EXTREMITIES: Left leg swelling redness slightly decreased no open wound or any drainage - Labs CBC & Chem 7: 06/30/24 08:41 06/30/24 08:41 Labs: Abnormal Lab Results - Last 24 Hours (Table) 06/30/24 06/30/24 06/30/24 Range/Units 08:41 08:41 08:41 RBC 3.31 L (4.30-5.90) m/uL Hgb 11.6 L (13.0-17.5) gm/dL Hct 34.5 L (39.0-53.0) % MCV 104.2 H (80.0-100.0) fL MCH 35.1 H (25.0-35.0) pg RDW 18.3 H (11.5-15.5) % Lymphocytes # 0.5 L (1.0-4.8) k/uL PT 21.1 H (10.0-12.5) sec INR 2.1 H (<1.2) Sodium 134 L (137-145) mmol/L Chloride 96 L (98-107) mmol/L Carbon Dioxide 32 H (22-30) mmol/L BUN 69 H (9-20) mg/dL Creatinine 2.89 H (0.66-1.25) mg/dL Glucose 118 H (74-99) mg/dL Total Bilirubin 3.4 H (0.2-1.3) mg/dL Conjugated Bilirubin 0.5 H (0.0-0.3) mg/dL Delta Bilirubin 2.3 H (0.0-0.2) mg/dL AST 90 H (17-59) U/L Alkaline Phosphatase 153 H (38-126) U/L Total Protein 5.9 L (6.3-8.2) g/dL Albumin 2.8 L (3.5-5.0) g/dL Microbiology - Last 24 Hours (Table) 06/26/24 17:01 Blood Culture - Preliminary Blood Assessment and Plan (1) Left leg cellulitis Current Visit: Yes Status: Acute Code(s): L03.116 - CELLULITIS OF LEFT LOWER LIMB SNOMED Code(s): 03557185269319156 Plan: 1patient presented to hospital with generalized weakness and falls in this patient who did have chronic swelling to the lower extremity now with worsening swelling redness to the left leg concerning for cellulitis likely streptococcal disease with diffuse swelling and redness no evidence of any purulence 2-patient did have some improvement to the left lower extremity cellulitis, to continue with the cefazolin 2 g every 12 hours while inpatient will transition to oral antibiotics on discharge Dictation was produced using [employer] dictation software. please excuse any grammatical, word or spelling errors. Time with Patient: Less than 30
[2024-06-30] MEDS: METOPROLOL TARTRATE 50 MG TAB PO SCH (16:56)
[2024-06-30] MEDS: MIDODRINE 5 MG TAB PO SCH (17:03)
[2024-06-30] MEDS: SODIUM CHLORIDE 0.9% 1,000 ML IV SCH (18:57)
[2024-06-30] MEDS: HYDROcodone/APAP 5-325MG 1 EACH TAB PO PRN (21:02)
[2024-07-01 08:58] LABS: African American GFR (CKD) 23 (>60 ml/min/1.73 sqM); Anion Gap 4 mmol/L; Blood Urea Nitrogen 79 mg/dL (9-20); Calcium 8.9 mg/dL (8.4-10.2); Carbon Dioxide 32 mmol/L (22-30); Chloride 98 mmol/L (98-107); Glucose 84 mg/dL (74-99); Non-African American GFR(CKD) 20 (>60 ml/min/1.73 sqM); Potassium 4.1 mmol/L (3.5-5.1); Sodium 134 mmol/L (137-145)
--- NOTE | 2024-07-01 09:08 | P.GSCN ---
History of Present Illness Consult date: 07/01/24 Reason for Consult: urinary retention History of present illness: This is a 78-year-old male admitted to the hospital following a fall urology is consulted for urinary retention. He indicated he is having some difficulty going, and at baseline he does not have any obstructive urinary symptoms. He currently has a condom catheter on. PVR yesterday was 400 mL, subsequently he voided and repeat PVR this morning is 320. No previous known history of urinary retention, or previous urological surgeries. Review of Systems - Constitutional Reports weakness, Denies chills, Denies fever - EENT Ears, nose, mouth and throat: Denies dysphagia - Gastrointestinal Reports as per HPI - Genitourinary Denies dysuria, Denies hematuria Past Medical History Past Medical History: Atrial Fibrillation, Deep Vein Thrombosis (DVT), Eye Disorder, Hyperlipidemia, Hypertension, Osteoarthritis (OA), Sleep Apnea/CPAP/BIPAP, Supraventricular Tachycardia (SVT) Additional Past Medical History / Comment(s): HX MALARIA. GOUT. POSS TOMMY- PARKINSON WHITE SYNDROME. UNABLE TO TOLERATE CPAP. GLAUCOMA, HEMORRHOIDS. PRE-CA LESIONS ON SCALP. GLAUCOMA, History of Any Multi-Drug Resistant Organisms: None Reported Past Surgical History: Orthopedic Surgery, Tonsillectomy Additional Past Surgical History / Comment(s): TONSILS X2. JEANE EYES FOR GLAUCOMA , RT KNEE-ARTHROSCOPIC , BILATERAL CARPAL TUNNEL RELEASE Past Anesthesia/Blood Transfusion Reactions: No Reported Reaction Past Psychological History: Depression Smoking Status: Never smoker Past Alcohol Use History: None Reported Past Drug Use History: None Reported - Past Family History Mother Family Medical History: Cancer Father Family Medical History: Cancer Medications and Allergies Home Medications Medication Instructions Recorded Confirmed Type Probenecid 500 mg PO BID 07/09/15 06/26/24 History Warfarin [Coumadin] 5 mg PO DAILY 07/09/15 06/26/24 History Cholecalciferol (Vitamin D3) 50 mcg PO DAILY 06/26/24 06/26/24 History [Vitamin D3 (50 Mcg = 2000 Iu)] Citalopram Hydrobromide [CeleXA] 10 mg PO DAILY 06/26/24 06/26/24 History Colchicine 0.6 mg PO BID 06/26/24 06/26/24 History Furosemide [Lasix] 40 mg PO BID@0900,1500 06/26/24 06/26/24 History Latanoprost [Latanoprost 0.005%] 1 drop RIGHT EYE HS 06/26/24 06/26/24 History Metoprolol Tartrate [Lopressor] 200 mg PO BID 06/26/24 06/26/24 History metOLazone [Zaroxolyn] 2.5 mg PO Q48H 06/26/24 06/26/24 History Apixaban [Eliquis] 5 mg PO BID #60 tab 06/27/24 Rx Allergies Allergy/AdvReac Type Severity Reaction Status Date / Time DUST, MOLD Allergy SNEEZING, Uncoded 06/26/24 16:59 RHINITIS POLLEN Allergy SNEEZING, Uncoded 06/26/24 16:59 RHINITIS Surgical - Exam Vital Signs Temp Pulse Resp BP Pulse Ox 98.1 F 88 20 98/58 97 06/26/24 13:06 06/26/24 13:06 06/26/24 13:06 06/26/24 13:06 06/26/24 13:06 - General no distress, no pain - Eyes normal ocular movement, no pale - ENT normal nares, normal mucosa - Respiratory normal expansion, normal respiratory effort - Abdomen Abdomen: soft, non tender - Psychiatric oriented to time, oriented to person, oriented to place Results - Labs 06/30/24 08:41 07/01/24 07:19 Abnormal Lab Results - Last 24 Hours (Table) 06/30/24 06/30/24 06/30/24 Range/Units 08:41 08:41 08:41 RBC 3.31 L (4.30-5.90) m/uL Hgb 11.6 L (13.0-17.5) gm/dL Hct 34.5 L (39.0-53.0) % MCV 104.2 H (80.0-100.0) fL MCH 35.1 H (25.0-35.0) pg RDW 18.3 H (11.5-15.5) % Lymphocytes # 0.5 L (1.0-4.8) k/uL PT 21.1 H (10.0-12.5) sec INR 2.1 H (<1.2) Sodium 134 L (137-145) mmol/L Chloride 96 L (98-107) mmol/L Carbon Dioxide 32 H (22-30) mmol/L BUN 69 H (9-20) mg/dL Creatinine 2.89 H (0.66-1.25) mg/dL Glucose 118 H (74-99) mg/dL Total Bilirubin 3.4 H (0.2-1.3) mg/dL Conjugated Bilirubin 0.5 H (0.0-0.3) mg/dL Delta Bilirubin 2.3 H (0.0-0.2) mg/dL AST 90 H (17-59) U/L Alkaline Phosphatase 153 H (38-126) U/L Total Protein 5.9 L (6.3-8.2) g/dL Albumin 2.8 L (3.5-5.0) g/dL Diabetes panel 06/30/24 Range/Units 08:41 Sodium 134 L (137-145) mmol/L Potassium 3.8 (3.5-5.1) mmol/L Chloride 96 L (98-107) mmol/L Carbon Dioxide 32 H (22-30) mmol/L BUN 69 H (9-20) mg/dL Creatinine 2.89 H (0.66-1.25) mg/dL Glucose 118 H (74-99) mg/dL Calcium 9.0 (8.4-10.2) mg/dL AST 90 H (17-59) U/L ALT 8 (4-49) U/L Alkaline Phosphatase 153 H (38-126) U/L Total Protein 5.9 L (6.3-8.2) g/dL Albumin 2.8 L (3.5-5.0) g/dL Calcium panel 06/30/24 Range/Units 08:41 Calcium 9.0 (8.4-10.2) mg/dL Albumin 2.8 L (3.5-5.0) g/dL Pituitary panel 06/30/24 Range/Units 08:41 Sodium 134 L (137-145) mmol/L Potassium 3.8 (3.5-5.1) mmol/L Chloride 96 L (98-107) mmol/L Carbon Dioxide 32 H (22-30) mmol/L BUN 69 H (9-20) mg/dL Creatinine 2.89 H (0.66-1.25) mg/dL Glucose 118 H (74-99) mg/dL Calcium 9.0 (8.4-10.2) mg/dL Adrenal panel 06/30/24 Range/Units 08:41 Sodium 134 L (137-145) mmol/L Potassium 3.8 (3.5-5.1) mmol/L Chloride 96 L (98-107) mmol/L Carbon Dioxide 32 H (22-30) mmol/L BUN 69 H (9-20) mg/dL Creatinine 2.89 H (0.66-1.25) mg/dL Glucose 118 H (74-99) mg/dL Calcium 9.0 (8.4-10.2) mg/dL Total Bilirubin 3.4 H (0.2-1.3) mg/dL AST 90 H (17-59) U/L ALT 8 (4-49) U/L Alkaline Phosphatase 153 H (38-126) U/L Total Protein 5.9 L (6.3-8.2) g/dL Albumin 2.8 L (3.5-5.0) g/dL Assessment and Plan Assessment: 78-year-old male with incomplete bladder emptying, his PVR is only 320 mL No previous history of urinary retention. His residual is improving this morning, no indication for Monzon catheter at this time, recommend starting Flomax -Will start Flomax
[2024-07-01] MEDS: TAMSULOSIN 0.4 MG CAP.ER.24H PO SCH (09:12)
--- NOTE | 2024-07-01 10:54 | P.PN ---
Subjective Patient is seen in follow-up for acute kidney injury on chronic kidney disease. Maintained on Lasix drip. Urine output 450 cc overnight. Denies chest pain or shortness of breath. Vital signs are stable. General: No acute distress. HEENT: Head exam is unremarkable. LUNGS: No audible rhonchi or wheezes. HEART: Rate and Rhythm are regular. ABDOMEN: Obese, nontender. EXTREMITITES: 3+ edema. No drainage. Objective - Vital Signs Vital signs: Vital Signs Temp 97.5 F L 07/01/24 08:56 Pulse 83 07/01/24 08:56 Resp 16 07/01/24 08:56 BP 104/64 07/01/24 08:56 Pulse Ox 98 07/01/24 08:56 FiO2 21 07/01/24 08:47 Intake & Output 06/30/24 07/01/24 07/01/24 18:59 06:59 18:59 Intake Total 360 95.5 Output Total 150 300 Balance 210 -300 95.5 Weight 177.5 kg Intake: Intake, IV Titration 95.5 Amount Furosemide 100 mg In 95.5 Sodium Chloride 0.9% 90 ml @ 5 MG/HR 5 mls/hr IV .Q20H [facility] Rx#:[id number] Oral 360 Output: Urine 150 300 Other: Voiding Method External Catheter External Catheter External Catheter - Labs CBC & Chem 7: 06/30/24 08:41 07/01/24 07:19 Labs: Abnormal Lab Results - Last 24 Hours (Table) 07/01/24 Range/Units 07:19 Sodium 134 L (137-145) mmol/L Carbon Dioxide 32 H (22-30) mmol/L BUN 79 H (9-20) mg/dL Creatinine 2.92 H (0.66-1.25) mg/dL Assessment and Plan Plan: Assessment: 1. Acute kidney injury secondary to ATN secondary to hypotension and cardiorenal syndrome. Creatinine stable at 2.92 today. No hydronephrosis noted on ultrasound. Trace protein on UA. 2. 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 Creatinine 1.5 in March 2024. 3. Acute on chronic diastolic CHF and moderate mitral consultation, severe tricuspid regurgitation and pulmonary hypertension. 4. Volume overload. 5. Right lower extremity cellulitis and Enterococcus UTI on antibiotics. ID following. 6. Hypervolemic hyponatremia. Stable. Plan: Hep-Lock IV fluids. Increase Lasix drip to 10 cc an hour. Add metolazone 5 mg once daily. Low-salt diet and 1500 cc fluid restriction. Maintain midodrine 10 mg 3 times daily. Hold for systolic blood pressure greater than 110. Stopped Farxiga due to acute infection. Avoid nephrotoxins. Continue to monitor renal function and urine output.
[2024-07-01 11:06] LABS: Prothrombin Time 19.8 sec (10.0-12.5)
[2024-07-01] MEDS: metOLazone 5 MG TAB PO SCH (11:42)
--- NOTE | 2024-07-01 12:30 | P.PN ---
Subjective Progress Note Date: 07/01/24 This is a 78-year-old patient of Dr. Deleon with past medical history of morbid obesity, permanent atrial fibrillation on Coumadin, hypertension, dyslipidemia, history of DVT, dilated thoracic aorta and valvular heart disease, pulmonary hypertension. We have been asked to evaluate the patient for heart failure. Patient gives history that he had a fall at home. He states his knee gave out on him. He complains of shortness of breath. He feels poorly in general. He is not very active at home. He denies having any fever. No history of smoking. No palpitations. Edema which she states is at his baseline. No blood in his stool or urine. No history of stroke or seizure. 07/01/2024 Was seen and examined resting comfortably in bed. Blood pressure is improved but remains on the low side. He is being followed by nephrology who has started a Lasix drip at 10 mL/h. They have increased metolazone to 5 mg p.o. daily and discontinued Farxiga due to current infection. Overall patient continues to complain of shortness of breath. Continues to complain of orthopnea but improving. Continues to complain of significant lower extremity edema labs this morning showed a creatinine of 2.92. INR 2.0. Objective - Vital Signs Vital signs: Vital Signs Temp 97.5 F L 07/01/24 08:56 Pulse 83 07/01/24 08:56 Resp 16 07/01/24 08:56 BP 104/64 07/01/24 08:56 Pulse Ox 98 07/01/24 08:56 FiO2 21 07/01/24 08:47 Intake & Output 06/30/24 07/01/24 07/01/24 18:59 06:59 18:59 Intake Total 360 215.5 Output Total 150 300 Balance 210 -300 215.5 Weight 177.5 kg Intake: Intake, IV Titration 95.5 Amount Furosemide 100 mg In 95.5 Sodium Chloride 0.9% 90 ml @ 5 MG/HR 5 mls/hr IV .Q20H [facility] Rx#:[id number] Oral 360 120 Output: Urine 150 300 Other: Voiding Method External Catheter External Catheter External Catheter - Exam Physical examination: Gen: This is a morbidly obese 78-year-old male appears to be in no acute distress VS: reviewed HEENT: Head is atraumatic, normocephalic. Pupils equal, round. Sclerae is anicteric. NECK: Supple. No JVD. LUNGS: Clear to auscultation. No wheezes or rhonchi. No intercostal retractions. HEART: Irregular rate and rhythm. Systolic murmur ABDOMEN: Soft No tenderness. EXTREMITIES: Moderate to severe bilateral lower extremity edema. Right lower extremity discoloration noted. no calf tenderness. NEUROLOGICAL: Patient is awake, alert and oriented x3. - Labs CBC & Chem 7: 06/30/24 08:41 07/01/24 07:19 Labs: Abnormal Lab Results - Last 24 Hours (Table) 07/01/24 07/01/24 Range/Units 07:19 10:19 PT 19.8 H (10.0-12.5) sec INR 2.0 H (<1.2) Sodium 134 L (137-145) mmol/L Carbon Dioxide 32 H (22-30) mmol/L BUN 79 H (9-20) mg/dL Creatinine 2.92 H (0.66-1.25) mg/dL Assessment and Plan Assessment: Generalized weakness and fall Permanent atrial fibrillation on Coumadin and will transition to Eliquis once INR is less than 2 Lower extremity edema and acute on chronic diastolic heart failure Supratherapeutic INR Hypertension Dyslipidemia History of DVT Dilated thoracic aorta Valvular heart disease with moderate MR, moderate to severe pulmonary hypertension Plan: From cardiology's perspective continue diuretics per nephrology. Continue to monitor I&O's, daily weights, electrolytes and renal function. Continue to monitor INR and start Eliquis once INR is less than 2. We will continue to follow the patient and provide further recommendations accordingly. CAPACITOR REPAIRER note has been reviewed, I agree with a documented findings and plan of care. Patient was seen and examined.
--- NOTE | 2024-07-01 16:50 | P.PN ---
Subjective Progress Note Date: 07/01/24 Principal diagnosis: Reason for follow-up is left leg cellulitis Patient is a 78-year-old male with a past medical history significant for atrial fibrillation hypertension hyperlipidemia osteoarthritis sleep apnea presenting to the hospital for evaluation of weakness and fall patient has been diagnosed with a left lower extremity cellulitis prompted this consultation. On today's evaluation that is 07/01/2024, patient has been afebrile, patient is breathing comfortably and is currently on room air, patient denies having any significant cough no chest pain shortness of breath, patient denies nausea vomiting or diarrhea and no abdominal pain, patient denies pain to the left lower extremity patient denies having any burning frequency of urination did have some difficulty with the patient had been started on Flomax Patient did have an INR of 2.0 Objective - Vital Signs Vital signs: Vital Signs Temp 98.1 F 07/01/24 15:17 Pulse 61 07/01/24 15:17 Resp 20 07/01/24 15:17 BP 88/54 07/01/24 15:17 Pulse Ox 96 07/01/24 15:17 FiO2 21 07/01/24 08:47 Intake & Output 06/30/24 07/01/24 07/01/24 18:59 06:59 18:59 Intake Total 360 379.834 Output Total 150 300 740 Balance 210 -300 -360.166 Weight 177.5 kg Intake: Intake, IV Titration 139.834 Amount Furosemide 100 mg In 139.834 Sodium Chloride 0.9% 90 ml @ 5 MG/HR 5 mls/hr IV .Q20H [facility] Rx#:[id number] Oral 360 240 Output: Urine 150 300 740 Other: Voiding Method External Catheter External Catheter External Catheter - Exam GENERAL DESCRIPTION: An elderly male lying in bed in no distress RESPIRATORY SYSTEM: Unlabored breathing , decreased breath sounds at bases HEART: S1 S2 regular rate and rhythm , ABDOMEN: Soft , no tenderness EXTREMITIES: Left leg swelling redness slightly decreased no open wound or any drainage - Labs CBC & Chem 7: 06/30/24 08:41 07/01/24 07:19 Labs: Abnormal Lab Results - Last 24 Hours (Table) 07/01/24 07/01/24 Range/Units 07:19 10:19 PT 19.8 H (10.0-12.5) sec INR 2.0 H (<1.2) Sodium 134 L (137-145) mmol/L Carbon Dioxide 32 H (22-30) mmol/L BUN 79 H (9-20) mg/dL Creatinine 2.92 H (0.66-1.25) mg/dL Assessment and Plan (1) Left leg cellulitis Current Visit: Yes Status: Acute Code(s): L03.116 - CELLULITIS OF LEFT LOWER LIMB SNOMED Code(s): 68962290027376094 Plan: 1patient presented to hospital with generalized weakness and falls in this patient who did have chronic swelling to the lower extremity now with worsening swelling redness to the left leg concerning for cellulitis likely streptococcal disease with diffuse swelling and redness no evidence of any purulence 2-patient left lower extremity swelling redness slightly decreased in intensity 3patient did have a positive urine culture with Enterococcus faecalis did have some difficulty urination we will adjust antibiotic to Unasyn and monitor clinical course closely Dictation was produced using [employer] dictation software. please excuse any grammatical, word or spelling errors. Time with Patient: Less than 30
[2024-07-01] MEDS: AMPICILLIN-SULBACTAM 3 GM in SODIUM CHLORIDE 0.9% 100 ML IVPB SCH (17:00)
--- NOTE | 2024-07-01 22:57 | P.PN ---
Subjective History of present illness; patient 78-year-old gentleman with past medical history significant for A-fib, DVT, hypertension, hyperlipidemia presented the ER because of worsening weakness and fall. Patient states that for the last few days he has been noticing that his left lower leg was getting red and more painful. Patient has history of lower extremity swelling and normally wraps them to help with swelling. There was no complaint of fever or chills. Patient has been complaining of increasing weakness. Patient had a fall yesterday. Th ere was no complaint of any trauma to the head. There was no loss of consciousness. Denied any chest pain or shortness of breath. Because of the symptoms, patient brought to the ER Initial lab work done in the ER showed showed WBC 1.7, hemoglobin 12.6, platelet count 169, INR 10, sodium 136, potassium 3.5, BUN 52, creatinine 2.19, glucose 117, bilirubin 5 AST 167, ALT 48 troponin 0.012, albumin 3.2 UA positive for leukocyte esterase, urine WBC 14 Influenza A not detected Influenza B not detected RSV not detected COVID-19 not detected X-ray of pelvis done, no evidence of any fractures EKG done in the ER showed heart rate of 94, no ST segment elevation or depression seen, no T-wave inversions seen. Chest x-ray done in the ER showed small right pleural effusion CT head done showed no acute intracranial process CT cervical spine done showed no fractures. Duplex ultrasound of lower extremities done showed no DVT Patient admitted to internal medicine service 06/28 Patient is lying in bed does not look in distress He still complaining from some pain in his left leg about 3/10, his left leg swollen pink warm and tender He has been treated for CHF, he has bilateral leg swelling, it is hard to hear basal crepitation as he is obese He still feels generally weak No other new complaint He is currently treated with cefazolin but urine culture is growing Enterococcus. Patient denies overt UTI signs symptoms currently Also is on IV Lasix 40 mg 3 times a day He was given warfarin 5 mg after INR came down to 3.0 down to 2.1 today [place]calcitonin [place] [address] Creatinine 2.2 today, was 2.1 last 2 days, baseline 1.4-1.7 Blood pressure is borderline 06/29 his left leg cellulitis is improving, still has swollen of the legs. No chest pain or dyspnea or other new complaint He is using CPAP machine at night Vitals are stable Labs from today are still pending. Yesterday his INR was therapeutic at 2.1. Urine culture is growing Enterococcus which is sensitive Continue with Coumadin. He denies any urinary tract symptoms he has external urinary catheter. Keep monitoring creatinine 06/30 Patient awake alert, using CPAP machine overnight. Denies chest pain or dyspnea He still complains from right shoulder pain from falling prior to coming to the hospital. He cannot raise his arm above his head with some limitation. We are going to order x-ray of the right shoulder. He still have generalized weakness He still have significant 3+ bilateral leg swelling, he is on IV Lasix 40 mg twice daily. However his INR has been trending up. Creatinine was 2.5 yes terday. From today still pending. Patient feels dry. His left leg cellulitis improving on IV cefazolin He continued on warfarin for his history of DVT and A-fib, INR is therapeutic. 07/01 Patient awake alert. He still complaining from some pain in his lower back improved with [place], right shoulder pain and x-ray showing no fracture but mild AC joint and glenoid joint arthropathy. Also patient followed by nephrology for acute kidney injury, creatinine slightly up from 2.89 up to 2.9. Currently he is placed on IV Lasix 40 mg daily, then switch to Lasix drip 10 mg/h and then later on lowered to 5 mg/h Flomax added as well as midodrine and Zaroxolyn. Blood pressure still borderline with systolic 88-111 Patient also on Augmentin for UTI with organism Enterococcus Review of systems CONSTITUTIONAL: No fever, no malaise, no fatigue. HEENT: No recent visual problems or hearing problems. Denied any sore throat. NEUROLOGICAL: No headaches, no weakness, no numbness. HEMATOLOGICAL: Denies any bleeding or petechiae. GENITOURINARY: Denies any burning micturition, frequency, or urgency. MUSCULOSKELETAL/RHEUMATOLOGICAL: Denies any joint pain, swelling, or any muscle pain. ENDOCRINE: Denies any polyuria or polydipsia. Active Medications Generic Name Dose Route Start Last Admin Trade Name Freq PRN Reason Stop Dose Admin Acetaminophen 650 mg 06/28/24 19:35 07/01/24 20:57 Acetaminophen Tab 325 Mg Tab PO 650 mg Q6HR PRN Administration Fever and/ or Pain Hydrocodone Bitart/Acetaminophen 1 each 06/26/24 15:50 06/30/24 21:02 Hydrocodone/Apap 5-325mg 1 Each Tab PO 1 each Q6HR PRN Administration Pain Apixaban 5 mg 06/29/24 09:00 07/01/24 20:08 Apixaban 5 Mg Tab PO 5 mg BID [facility]FI Administration Protocol Cholecalciferol 50 mcg 06/28/24 09:00 07/01/24 09:06 Cholecalciferol 25 Mcg (1000 Iu) Tablet PO 50 mcg DAILY [facility]FI Administration Citalopram Hydrobromide 10 mg 06/28/24 09:00 07/01/24 09:06 Citalopram Hydrobromide 10 Mg Tab PO 10 mg DAILY [facility] Administration Hydromorphone HCl 0.5 mg 06/26/24 15:50 Hydromorphone 0.5 Mg/0.5 Ml Syringe IVP Q6HR PRN Severe Pain (Scale 7 to 10) Sodium Chloride 1,000 mls @ 20 mls/hr 06/26/24 18:00 07/01/24 16:34 Saline 0.9% IV Not Given .Q24H [facility] Furosemide 100 mg/ Sodium 100 mls @ 5 mls/hr 06/30/24 12:00 07/01/24 16:03 Chloride IV 0 mg/hr .Q20H [facility] 0 mls/hr Infusion 5 MG/HR Ampicillin Sodium/Sulbactam 100 mls @ 200 mls/hr 07/02/24 06:00 Sodium 3 gm/ Sodium Chloride IVPB Q12H [facility] Protocol Latanoprost 1 drops 06/27/24 21:00 07/01/24 20:08 Latanoprost 0.005% Ophth Drops 2.5 Ml Btl RIGHT EYE 1 drops HS SOFI Administration Metolazone 5 mg 07/01/24 11:30 07/01/24 11:42 Metolazone 5 Mg Tab PO 5 mg DAILY [facility]FI Administration Metoprolol Tartrate 100 mg 06/30/24 11:00 07/01/24 20:08 Metoprolol Tartrate 50 Mg Tab PO 100 mg BID SOFI Administration Midodrine 10 mg 06/30/24 12:30 07/01/24 16:35 Midodrine 5 Mg Tab PO 10 mg AC-TID [facility] Administration Miscellaneous Information 1 each 06/27/24 21:02 Potassium Replacement Protocol 1 Each Misc MISCELLANE DAILY PRN Per Protocol Protocol Naloxone HCl 0.2 mg 06/26/24 17:49 Naloxone 0.4 Mg/Ml 1 Ml Vial IV Q2M PRN Opioid Reversal Petrolatum 1 applic 06/28/24 15:40 06/28/24 16:47 Zinc Oxide Paste (Z-Guard) 1 Applic TOPICAL 1 applic Q2HR PRN Administration Wound Healing Protocol Potassium Chloride 20 meq 06/28/24 12:45 07/01/24 09:06 Potassium Chloride Er 20 Meq Tab.Er PO 20 meq DAILY [facility] Administration Probenecid 500 mg 06/27/24 21:00 07/01/24 20:08 Probenecid 500 Mg Tab PO 500 mg BID SOFI Administration Tamsulosin HCl 0.4 mg 07/01/24 09:15 07/01/24 09:12 Tamsulosin 0.4 Mg Cap.Er.24h PO 0.4 mg DAILY SOFI Administration Objective - Vital Signs Vital signs: Vital Signs Temp 97.5 F L 07/01/24 08:56 Pulse 84 07/01/24 13:16 Resp 16 07/01/24 11:50 BP 88/55 07/01/24 12:11 Pulse Ox 97 07/01/24 11:50 FiO2 21 07/01/24 08:47 Intake & Output 06/30/24 07/01/24 07/01/24 18:59 06:59 18:59 Intake Total 360 239.167 Output Total 150 300 640 Balance 210 -300 -400.833 Weight 177.5 kg Intake: Intake, IV Titration 119.167 Amount Furosemide 100 mg In 119.167 Sodium Chloride 0.9% 90 ml @ 5 MG/HR 5 mls/hr IV .Q20H [facility] Rx#:[id number] Oral 360 120 Output: Urine 150 300 640 Other: Voiding Method External Catheter External Catheter External Catheter - Exam -GENERAL: The patient is alert and oriented x3, not in any acute distress. Well developed, well nourished. Obese HEENT: Pupils are round and equally reacting to light. EOMI. No scleral icterus. No conjunctival pallor. Normocephalic, atraumatic. No pharyngeal erythema. No thyromegaly. CARDIOVASCULAR: S1 and S2 present. No murmurs, rubs, or gallops. PULMONARY: Chest is clear to auscultation, no wheezing , no crackles. ABDOMEN: Soft, nontender, nondistended, normoactive bowel sounds. No palpable organomegaly. MUSCULOSKELETAL: No joint swelling or deformity. -EXTREMITIES: No cyanosis, clubbing, , 3+ bilateral pitting leg edema. Left leg is swollen, pink, warm and slightly tender. Bilateral pitting leg edema 1+, more on the left side NEUROLOGICAL: Gross neurological examination did not reveal any focal deficits. SKIN: No rashes. no petechiae. - Labs CBC & Chem 7: 06/30/24 08:41 07/01/24 07:19 Labs: Abnormal Lab Results - Last 24 Hours (Table) 07/01/24 07/01/24 Range/Units 07:19 10:19 PT 19.8 H (10.0-12.5) sec INR 2.0 H (<1.2) Sodium 134 L (137-145) mmol/L Carbon Dioxide 32 H (22-30) mmol/L BUN 79 H (9-20) mg/dL Creatinine 2.92 H (0.66-1.25) mg/dL Assessment and Plan Assessment: Acute kidney injury on chronic kidney disease stage III Acute left leg cellulitis Fall at home Acute urinary tract infection secondary to Enterococcus group D Acute diastolic CHF with preserved ejection fraction Hepatosplenomegaly, patient has been told by Dr. Hansen he has nonalcoholic liver cirrhosis Chronic atrial fibrillations on Coumadin with high INR on admission, currently improved Obesity with BMI of 39.6 History of DVT Plan: Continue with antibiotic as per ID team. Currently Augmentin Continue with IV Lasix 40 mg every 8 hours switch to Lasix drip, Zaroxolyn was added . Monitor creatinine nephrology consult if continue to worsen Cardiology team consult Continue with warfarin and monitoring INR Zaroxolyn is resumed Labs and medication were reviewed.. Continue same treatment. Continue with symptomatic treatment. Resume home medication. Monitor labs and vitals. DVT and GI prophylaxis. Further recommendations as per clinical course of the patient DVT prophylaxis: Warfarin GI Prophylaxis: Pepcid PT/OT: Pending Prognosis is guarded
[2024-07-02] MEDS: AMPICILLIN-SULBACTAM 3 GM in SODIUM CHLORIDE 0.9% 100 ML IVPB SCH (08:06)
[2024-07-02 08:39] LABS: INR 1.9 (<1.2); Prothrombin Time 19.2 sec (10.0-12.5)
[2024-07-02 08:56] LABS: African American GFR (CKD) 18 (>60 ml/min/1.73 sqM); Anion Gap 11 mmol/L; Blood Urea Nitrogen 83 mg/dL (9-20); Carbon Dioxide 26 mmol/L (22-30); Chloride 97 mmol/L (98-107); Glucose 91 mg/dL (74-99); Magnesium 2.1 mg/dL (1.6-2.3); Non-African American GFR(CKD) 16 (>60 ml/min/1.73 sqM); Potassium 4.6 mmol/L (3.5-5.1); Sodium 134 mmol/L (137-145)
--- NOTE | 2024-07-02 10:11 | P.PN ---
Subjective Progress Note Date: 07/02/24 Patient bladder scan has been varied from 0-700, has been having minimal urine output. His creatinine is up to 3.5 Objective - Vital Signs Vital signs: Vital Signs Temp 97.3 F L 07/02/24 07:54 Pulse 97 07/02/24 07:54 Resp 20 07/02/24 07:54 BP 92/58 07/02/24 07:54 Pulse Ox 93 L 07/02/24 07:54 FiO2 21 07/02/24 04:22 Intake & Output 07/01/24 07/02/24 07/02/24 18:59 06:59 18:59 Intake Total 499.834 540 120 Output Total 740 100 50 Balance -240.166 440 70 Weight 153 kg Intake: Intake, IV Titration 139.834 Amount Furosemide 100 mg In 139.834 Sodium Chloride 0.9% 90 ml @ 5 MG/HR 5 mls/hr IV .Q20H [facility] Rx#:[id number] Oral 360 540 120 Output: Urine 740 100 50 Post Void Residual 0 Other: Voiding Method External Catheter External Catheter External Catheter - Constitutional General appearance: Present: no acute distress - Gastrointestinal General gastrointestinal: Present: soft. Absent: distended, tenderness - Genitourinary Genitourinary Comment(s): Significant penile scrotal edema, unable to visualize the glans - Psychiatric Psychiatric: Present: A&O x's 3 - Labs CBC & Chem 7: 06/30/24 08:41 07/02/24 07:38 Labs: Abnormal Lab Results - Last 24 Hours (Table) 07/01/24 07/02/24 07/02/24 Range/Units 10:19 07:38 07:38 PT 19.8 H 19.2 H (10.0-12.5) sec INR 2.0 H 1.9 H (<1.2) Sodium 134 L (137-145) mmol/L Chloride 97 L (98-107) mmol/L BUN 83 H (9-20) mg/dL Creatinine 3.54 H (0.66-1.25) mg/dL Microbiology - Last 24 Hours (Table) 06/26/24 17:01 Blood Culture - Final Blood Assessment and Plan Assessment: 78-year-old male with incomplete bladder emptying, PVR has been ranged anywhere from 0 to 700 mL. He is having minimal urine output at this time, creatinine continues to worsen now up to 3.5. Attempt to place catheter by nursing staff was unsuccessful. At this point given his worsening renal function and the variation in bladder scan we will place a Monzon catheter to rule out obstructive process as the cause of his acute kidney injury -continue Flomax -Given the complexity of placing his catheter, recommend keeping the catheter until patient renal function recovers and he is closer to being discharged at that point he can have a trial of void. After catheter placement patient had minimal urine output His bladder scan number was secondary to abdominal ascites rather than urine within the bladder
--- NOTE | 2024-07-02 10:13 | P.PCN ---
Date of Procedure: 07/02/24 Preoperative Diagnosis: Urinary retention Postoperative Diagnosis: Same Procedure(s) Performed: Complicated Monzon catheter placement Description of Procedure: Patient penis was prepped with Betadine, of note he had significant penile scrotal edema, I attempted to visualize the glans but was unable to given the degree of the edema. I was able to palpate the glans through his skin. At this time I attempted to place a 16 Italian catheter but resistance was met at the meatus, this point I switched to a 14 Italian silicone catheter I was able to advance the catheter through the meatus and into the bladder with the return of clear urine. Patient tolerated procedure well
--- NOTE | 2024-07-02 10:22 | P.PN ---
Subjective History of present illness; patient 78-year-old gentleman with past medical history significant for A-fib, DVT, hypertension, hyperlipidemia presented the ER because of worsening weakness and fall. Patient states that for the last few days he has been noticing that his left lower leg was getting red and more painful. Patient has history of lower extremity swelling and normally wraps them to help with swelling. There was no complaint of fever or chills. Patient has been complaining of increasing weakness. Patient had a fall yesterday. Th ere was no complaint of any trauma to the head. There was no loss of consciousness. Denied any chest pain or shortness of breath. Because of the symptoms, patient brought to the ER Initial lab work done in the ER showed showed WBC 1.7, hemoglobin 12.6, platelet count 169, INR 10, sodium 136, potassium 3.5, BUN 52, creatinine 2.19, glucose 117, bilirubin 5 AST 167, ALT 48 troponin 0.012, albumin 3.2 UA positive for leukocyte esterase, urine WBC 14 Influenza A not detected Influenza B not detected RSV not detected COVID-19 not detected X-ray of pelvis done, no evidence of any fractures EKG done in the ER showed heart rate of 94, no ST segment elevation or depression seen, no T-wave inversions seen. Chest x-ray done in the ER showed small right pleural effusion CT head done showed no acute intracranial process CT cervical spine done showed no fractures. Duplex ultrasound of lower extremities done showed no DVT Patient admitted to internal medicine service 06/28 Patient is lying in bed does not look in distress He still complaining from some pain in his left leg about 3/10, his left leg swollen pink warm and tender He has been treated for CHF, he has bilateral leg swelling, it is hard to hear basal crepitation as he is obese He still feels generally weak No other new complaint He is currently treated with cefazolin but urine culture is growing Enterococcus. Patient denies overt UTI signs symptoms currently Also is on IV Lasix 40 mg 3 times a day He was given warfarin 5 mg after INR came down to 3.0 down to 2.1 today [place]calcitonin [place] [address] Creatinine 2.2 today, was 2.1 last 2 days, baseline 1.4-1.7 Blood pressure is borderline 06/29 his left leg cellulitis is improving, still has swollen of the legs. No chest pain or dyspnea or other new complaint He is using CPAP machine at night Vitals are stable Labs from today are still pending. Yesterday his INR was therapeutic at 2.1. Urine culture is growing Enterococcus which is sensitive Continue with Coumadin. He denies any urinary tract symptoms he has external urinary catheter. Keep monitoring creatinine 06/30 Patient awake alert, using CPAP machine overnight. Denies chest pain or dyspnea He still complains from right shoulder pain from falling prior to coming to the hospital. He cannot raise his arm above his head with some limitation. We are going to order x-ray of the right shoulder. He still have generalized weakness He still have significant 3+ bilateral leg swelling, he is on IV Lasix 40 mg twice daily. However his INR has been trending up. Creatinine was 2.5 yes terday. From today still pending. Patient feels dry. His left leg cellulitis improving on IV cefazolin He continued on warfarin for his history of DVT and A-fib, INR is therapeutic. 07/01 Patient awake alert. He still complaining from some pain in his lower back improved with [place], right shoulder pain and x-ray showing no fracture but mild AC joint and glenoid joint arthropathy. Also patient followed by nephrology for acute kidney injury, creatinine slightly up from 2.89 up to 2.9. Currently he is placed on IV Lasix 40 mg daily, then switch to Lasix drip 10 mg/h and then later on lowered to 5 mg/h Flomax added as well as midodrine and Zaroxolyn. Blood pressure still borderline with systolic 88-111 Patient also on Augmentin for UTI with organism Enterococcus 07/02 Patient awake alert with no dizziness or generalized weakness although his blood pressure is on the low side. This morning was 92/58 He is currently being treated for left leg cellulitis and Enterococcus UTI and patient is on Unasyn Also he is on Lasix drip for his acute CHF and acute on chronic kidney disease, creatinine was 2.9, went up to 3.5 today He has been followed closely by nephrology and urology service, s/p Monzon catheter placement Also he is on Zaroxolyn, midodrine and furosemide. Continue with Eliquis while warfarin discontinued Objective - Vital Signs Vital signs: Vital Signs Temp 97.3 F L 07/02/24 07:54 Pulse 97 07/02/24 07:54 Resp 20 07/02/24 07:54 BP 92/58 07/02/24 07:54 Pulse Ox 93 L 07/02/24 07:54 FiO2 21 07/02/24 04:22 Intake & Output 07/01/24 07/02/24 07/02/24 18:59 06:59 18:59 Intake Total 499.834 540 120 Output Total 740 100 50 Balance -240.166 440 70 Weight 153 kg Intake: Intake, IV Titration 139.834 Amount Furosemide 100 mg In 139.834 Sodium Chloride 0.9% 90 ml @ 5 MG/HR 5 mls/hr IV .Q20H [facility] Rx#:[id number] Oral 360 540 120 Output: Urine 740 100 50 Post Void Residual 0 Other: Voiding Method External Catheter External Catheter External Catheter - Exam -GENERAL: The patient is alert and oriented x3, not in any acute distress. Well developed, well nourished. Obese HEENT: Pupils are round and equally reacting to light. EOMI. No scleral icterus. No conjunctival pallor. Normocephalic, atraumatic. No pharyngeal erythema. No thyromegaly. CARDIOVASCULAR: S1 and S2 present. No murmurs, rubs, or gallops. PULMONARY: Chest is clear to auscultation, no wheezing , no crackles. ABDOMEN: Soft, nontender, nondistended, normoactive bowel sounds. No palpable organomegaly. MUSCULOSKELETAL: No joint swelling or deformity. -EXTREMITIES: No cyanosis, clubbing, , 3+ bilateral pitting leg edema. Left leg is swollen, pink, warm and slightly tender. Bilateral pitting leg edema 1+, more on the left side NEUROLOGICAL: Gross neurological examination did not reveal any focal deficits. SKIN: No rashes. no petechiae. - Labs CBC & Chem 7: 06/30/24 08:41 07/02/24 07:38 Labs: Abnormal Lab Results - Last 24 Hours (Table) 07/01/24 07/02/24 07/02/24 Range/Units 10:19 07:38 07:38 PT 19.8 H 19.2 H (10.0-12.5) sec INR 2.0 H 1.9 H (<1.2) Sodium 134 L (137-145) mmol/L Chloride 97 L (98-107) mmol/L BUN 83 H (9-20) mg/dL Creatinine 3.54 H (0.66-1.25) mg/dL Microbiology - Last 24 Hours (Table) 06/26/24 17:01 Blood Culture - Final Blood Assessment and Plan Assessment: Acute kidney injury on chronic kidney disease stage III Acute left leg cellulitis Fall at home Acute urinary tract infection secondary to Enterococcus group D Acute diastolic CHF with preserved ejection fraction Hepatosplenomegaly, patient has been told by Dr. Hansen he has nonalcoholic liver cirrhosis Chronic atrial fibrillations on Coumadin with high INR on admission, currently improved. Currently switched to Eliquis Obesity with BMI of 39.6 History of DVT Plan: Continue with antibiotic as per ID team. Currently using Unasyn Continue with Lasix drip, Zaroxolyn was added . As per nephrology team recommendation Monitor creatinine nephrology consult if continue to worsen Cardiology team consult Continue with Monzon catheter, Flomax and urology consult Continue with Eliquis Zaroxolyn is resumed Labs and medication were reviewed.. Continue same treatment. Continue with symptomatic treatment. Resume home medication. Monitor labs and vitals. DVT and GI prophylaxis. Further recommendations as per clinical course of the patient DVT prophylaxis: Eliquis GI Prophylaxis: Pepcid PT/OT: Pending Prognosis is guarded
[2024-07-02] MEDS: ALBUMIN HUMAN 25% 50 ML in EMPTY BAG 1 BAG IVPB SCH (10:29)
--- NOTE | 2024-07-02 11:06 | P.PN ---
Subjective Patient is seen in follow-up for acute kidney injury on chronic kidney disease. Lasix drip was held yesterday due to urinary retention. Urology placed Monzon catheter this morning. So far only 150 cc of urine drained. Vital signs are stable. General: No acute distress. HEENT: Head exam is unremarkable. LUNGS: No audible rhonchi or wheezes. HEART: Rate and Rhythm are regular. ABDOMEN: Obese, nontender. EXTREMITITES: 3+ edema. No drainage. Objective - Vital Signs Vital signs: Vital Signs Temp 97.3 F L 07/02/24 07:54 Pulse 97 07/02/24 07:54 Resp 20 07/02/24 07:54 BP 95/58 07/02/24 10:33 Pulse Ox 93 L 07/02/24 07:54 FiO2 21 07/02/24 04:22 Intake & Output 07/01/24 07/02/24 07/02/24 18:59 06:59 18:59 Intake Total 499.834 540 120 Output Total 740 100 50 Balance -240.166 440 70 Weight 153 kg Intake: Intake, IV Titration 139.834 Amount Furosemide 100 mg In 139.834 Sodium Chloride 0.9% 90 ml @ 5 MG/HR 5 mls/hr IV .Q20H [facility] Rx#:[id number] Oral 360 540 120 Output: Urine 740 100 50 Post Void Residual 0 Other: Voiding Method External Catheter External Catheter External Catheter - Labs CBC & Chem 7: 06/30/24 08:41 07/02/24 07:38 Labs: Abnormal Lab Results - Last 24 Hours (Table) 07/01/24 07/02/24 07/02/24 Range/Units 10:19 07:38 07:38 PT 19.8 H 19.2 H (10.0-12.5) sec INR 2.0 H 1.9 H (<1.2) Sodium 134 L (137-145) mmol/L Chloride 97 L (98-107) mmol/L BUN 83 H (9-20) mg/dL Creatinine 3.54 H (0.66-1.25) mg/dL Microbiology - Last 24 Hours (Table) 06/26/24 17:01 Blood Culture - Final Blood Assessment and Plan Plan: Assessment: 1. Acute kidney injury secondary to ATN secondary to hypotension and cardiorenal syndrome. Creatinine up to 3.54 today. No hydronephrosis noted on ultrasound. Trace protein on UA. 2. 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 Creatinine 1.5 in March 2024. 3. Acute on chronic diastolic CHF and moderate mitral consultation, severe tricuspid regurgitation and pulmonary hypertension. 4. Volume overload. 5. Right lower extremity cellulitis and Enterococcus UTI on antibiotics. ID following. 6. Hypervolemic hyponatremia. Stable. Plan: Monzon catheter placed this morning with only 150 cc drained. Likely ascitic fluid rather than urinary retention. 25 g IV albumin once today. Resume Lasix drip at 5 cc an hour. Maintain metolazone. Low-salt diet and 1500 cc fluid restriction. Increase midodrine frequency to 4 times daily. Hold for systolic blood pressure greater than 110. Stopped Farxiga due to acute infection. Avoid nephrotoxins. Continue to monitor renal function and urine output.
--- NOTE | 2024-07-02 11:56 | P.PN ---
Subjective Progress Note Date: 07/02/24 This is a 78-year-old patient of Dr. Deleon with past medical history of morbid obesity, permanent atrial fibrillation on Coumadin, hypertension, dyslipidemia, history of DVT, dilated thoracic aorta and valvular heart disease, pulmonary hypertension. We have been asked to evaluate the patient for heart failure. Patient gives history that he had a fall at home. He states his knee gave out on him. He complains of shortness of breath. He feels poorly in general. He is not very active at home. He denies having any fever. No history of smoking. No palpitations. Edema which she states is at his baseline. No blood in his stool or urine. No history of stroke or seizure. 07/01/2024 Was seen and examined resting comfortably in bed. Blood pressure is improved but remains on the low side. He is being followed by nephrology who has started a Lasix drip at 10 mL/h. They have increased metolazone to 5 mg p.o. daily and discontinued Farxiga due to current infection. Overall patient continues to complain of shortness of breath. Continues to complain of orthopnea but improving. Continues to complain of significant lower extremity edema labs this morning showed a creatinine of 2.92. INR 2.0. 07/02/2024 The patient was seen and examined resting comfortably in bed. He is overall feeling his breathing is a bit better. Continues to have significant edema. Continues to be followed by nephrology with adjustments made to his diuretics as well as the addition of albumin. Renal function is worse with a creatinine of 3.54. Blood pressure remains low. Objective - Vital Signs Vital signs: Vital Signs Temp 97.3 F L 07/02/24 07:54 Pulse 97 07/02/24 07:54 Resp 20 07/02/24 07:54 BP 95/58 07/02/24 10:33 Pulse Ox 93 L 07/02/24 07:54 FiO2 21 07/02/24 04:22 Intake & Output 07/01/24 07/02/24 07/02/24 18:59 06:59 18:59 Intake Total 499.834 540 120 Output Total 740 100 50 Balance -240.166 440 70 Weight 153 kg Intake: Intake, IV Titration 139.834 Amount Furosemide 100 mg In 139.834 Sodium Chloride 0.9% 90 ml @ 5 MG/HR 5 mls/hr IV .Q20H [facility] Rx#:[id number] Oral 360 540 120 Output: Urine 740 100 50 Post Void Residual 0 Other: Voiding Method External Catheter External Catheter External Catheter # Bowel Movements 1 - Exam Physical examination: Gen: This is a morbidly obese 78-year-old male appears to be in no acute distress VS: reviewed HEENT: Head is atraumatic, normocephalic. Pupils equal, round. Sclerae is anicteric. NECK: Supple. No JVD. LUNGS: Clear to auscultation. No wheezes or rhonchi. No intercostal retractions. HEART: Irregular rate and rhythm. Systolic murmur ABDOMEN: Soft No tenderness. EXTREMITIES: Moderate to severe bilateral lower extremity edema. Right lower extremity discoloration noted. no calf tenderness. NEUROLOGICAL: Patient is awake, alert and oriented x3. - Labs CBC & Chem 7: 06/30/24 08:41 07/02/24 07:38 Labs: Abnormal Lab Results - Last 24 Hours (Table) 07/02/24 07/02/24 Range/Units 07:38 07:38 PT 19.2 H (10.0-12.5) sec INR 1.9 H (<1.2) Sodium 134 L (137-145) mmol/L Chloride 97 L (98-107) mmol/L BUN 83 H (9-20) mg/dL Creatinine 3.54 H (0.66-1.25) mg/dL Microbiology - Last 24 Hours (Table) 06/26/24 17:01 Blood Culture - Final Blood Assessment and Plan Assessment: Generalized weakness and fall Permanent atrial fibrillation on Coumadin and will transition to Eliquis once INR is less than 2 Lower extremity edema and acute on chronic diastolic heart failure Supratherapeutic INR Hypertension Dyslipidemia History of DVT Dilated thoracic aorta Valvular heart disease with moderate MR, moderate to severe pulmonary hyperten jonathan Plan: From cardiology's perspective continue diuretics per nephrology. Continue to monitor I&O's, daily weights, electrolytes and renal function. Gnosis remains guarded. We will continue to follow the patient and provide further recommendations accordingly. WATCH REPAIRER note has been reviewed, I agree with a documented findings and plan of care. Patient was seen and examined.
[2024-07-02] MEDS: MIDODRINE 5 MG TAB PO SCH (12:34)
[2024-07-02 14:48] LABS: Glucose,Whole Blood 127 mg/dL (70-110)
--- NOTE | 2024-07-02 15:21 | P.PN ---
Subjective Progress Note Date: 07/02/24 Principal diagnosis: Reason for follow-up is left leg cellulitis Patient is a 78-year-old male with a past medical history significant for atrial fibrillation hypertension hyperlipidemia osteoarthritis sleep apnea presenting to the hospital for evaluation of weakness and fall patient has been diagnosed with a left lower extremity cellulitis prompted this consultation. On today's evaluation that is 07/02/2024, Patient is afebrile this morning patient denies having any chest pain shortness of breath or cough, the patient is breathing comfortably on 2 L nasal oxygen patient denies any abdominal pain no diarrhea no nausea no vomiting, patient denies any worsening of the lower extremity. Patient did have a creatinine of 3.54 no CBC was done today Objective - Vital Signs Vital signs: Vital Signs Temp 97.5 F L 07/02/24 11:18 Pulse 86 07/02/24 13:19 Resp 22 07/02/24 11:18 BP 80/55 07/02/24 13:52 Pulse Ox 96 07/02/24 11:18 FiO2 21 07/02/24 04:22 Intake & Output 07/01/24 07/02/24 07/02/24 18:59 06:59 18:59 Intake Total 499.834 540 663.25 Output Total 740 100 150 Balance -240.166 440 513.25 Weight 153 kg Intake: Intake, IV Titration 139.834 3.25 Amount Furosemide 100 mg In 139.834 3.25 Sodium Chloride 0.9% 90 ml @ 5 MG/HR 5 mls/hr IV .Q20H [facility] Rx#:[id number] Oral 360 540 660 Output: Urine 740 100 150 Post Void Residual 0 Other: Voiding Method External Catheter External Catheter Indwelling Catheter # Bowel Movements 1 - Exam GENERAL DESCRIPTION: An elderly male lying in bed in no distress RESPIRATORY SYSTEM: Unlabored breathing , decreased breath sounds at bases HEART: S1 S2 regular rate and rhythm , ABDOMEN: Soft , no tenderness EXTREMITIES: Left leg swelling redness slightly decreased no open wound or any drainage - Labs CBC & Chem 7: 06/30/24 08:41 07/02/24 07:38 Labs: Abnormal Lab Results - Last 24 Hours (Table) 07/02/24 07/02/24 07/02/24 Range/Units 07:38 07:38 14:46 PT 19.2 H (10.0-12.5) sec INR 1.9 H (<1.2) Sodium 134 L (137-145) mmol/L Chloride 97 L (98-107) mmol/L BUN 83 H (9-20) mg/dL Creatinine 3.54 H (0.66-1.25) mg/dL POC Glucose (mg/dL) 127 H (70-110) mg/dL Microbiology - Last 24 Hours (Table) 06/26/24 17:01 Blood Culture - Final Blood Assessment and Plan (1) Left leg cellulitis Current Visit: Yes Status: Acute Code(s): L03.116 - CELLULITIS OF LEFT LOWER LIMB SNOMED Code(s): 76145123095553335 Plan: 1patient presented to hospital with generalized weakness and falls in this patient who did have chronic swelling to the lower extremity now with worsening swelling redness to the left leg concerning for cellulitis likely streptococcal disease with diffuse swelling and redness no evidence of any purulence 2-patient left lower extremity swelling redness slightly decreased in intensity, patient noticed to have worsening of his kidney function and has been started on Lasix drip being transferred to the ICU continue with Unasyn and monitor clinical course closely Dictation was produced using [employer] dictation software. please excuse any grammatical, word or spelling errors. Time with Patient: Less than 30
[2024-07-02] MEDS: NOREPINEPHRINE 4 MG in SODIUM CHLORIDE 0.9% 250 ML IV SCH (15:26)
--- NOTE | 2024-07-02 19:09 | P.CNPUL ---
History of Present Illness Consult date: 07/02/24 Reason for consult: dyspnea Chief complaint: Fluid overload, acute kidney injury on top of chronic kidney disease History of present illness: This is a 78-year-old male patient with massive fluid overload, ongoing diffic ulty with chronic kidney failure as the patient has developed an acute on top of chronic renal disease with extensive third spacing and anasarca and possibly a component of cardiorenal syndrome. 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 Baseline creatinine is around 1.5 back in March 2024. The patient presented to us with volume overload, acute on top of chronic diastolic heart failure with moderate mitral regurgitation. Patient also was diagnosed having an Enterococcus urinary tract infection currently on IV Unasyn. Initial rate, attempts to diurese this patient with Lasix have failed due to ongoing hypotension. The patient was started on midodrine 10 mg p.o. 4 times daily. Subsequently, I was asked to transfer this patient to the ICU for hemodynamic support and pressor use as the patient was going to be started on Lasix 5 mg infusion in combination with Zaroxolyn 5 mg p.o. daily. Based on that, the patient was transferred to the ICU. Lasix s drip was started and the patient will be started also on norepinephrine for blood pressure support. He is currently awake and alert. Following commands. He is on oxygen at 2 L/min nasal cannula. His chest x-ray showing small bilateral pleural effusion and this is less x-ray that was done on 06/26/2024. Review of Systems Constitutional: Reports daytime sleepiness, Reports fatigue, Reports poor appetite, Reports weakness, Reports weight gain Eyes: denies as per HPI, denies blurred vision, denies bulging eye, denies decreased vision, denies diplopia, denies discharge, denies dry eye, denies irritation, denies itching, denies pain, denies photophobia, denies loss of peripheral vision, denies loss of vision, denies tunnel vision/blind spots Ears: deny: decreased hearing, ear discharge, earache, tinnitus Ears, nose, mouth and throat: Reports as per HPI Breasts: absent: as per HPI, gynecomastia Cardiovascular: Reports decreased exercise tolerance, Reports irregular heart beat, Reports shortness of breath Respiratory: Reports as per HPI, Reports dyspnea, Reports home oxygen, Reports sleep apnea, Reports snoring Gastrointestinal: Reports as per HPI Genitourinary: Reports as per HPI Musculoskeletal: Reports as per HPI Musculoskeletal: bilateral: ankle swelling, absent: ankle pain, ankle stiffness Integumentary: Reports as per HPI Neurological: Reports as per HPI Endocrine: Reports as per HPI, Reports fatigue Hematologic/Lymphatic: Reports as per HPI Allergic/Immunologic: Reports as per HPI Past Medical History Past Medical History: Atrial Fibrillation, Deep Vein Thrombosis (DVT), Eye Disorder, Hyperlipidemia, Hypertension, Osteoarthritis (OA), Sleep Apnea/CPAP/BIPAP, Supraventricular Tachycardia (SVT) Additional Past Medical History / Comment(s): HX MALARIA. GOUT. POSS TOMMY-PA RKINSON WHITE SYNDROME. UNABLE TO TOLERATE CPAP. GLAUCOMA, HEMORRHOIDS. PRE-CA LESIONS ON SCALP. GLAUCOMA, History of Any Multi-Drug Resistant Organisms: None Reported Past Surgical History: Orthopedic Surgery, Tonsillectomy Additional Past Surgical History / Comment(s): TONSILS X2. JEANE EYES FOR GLAUCOMA , RT KNEE-ARTHROSCOPIC , BILATERAL CARPAL TUNNEL RELEASE Past Anesthesia/Blood Transfusion Reactions: No Reported Reaction Past Psychological History: Depression Smoking Status: Never smoker Past Alcohol Use History: None Reported Past Drug Use History: None Reported - Past Family History Mother Family Medical History: Cancer Father Family Medical History: Cancer Medications and Allergies Home Medications Medication Instructions Recorded Confirmed Type Probenecid 500 mg PO BID 07/09/15 06/26/24 History Warfarin [Coumadin] 5 mg PO DAILY 07/09/15 06/26/24 History Cholecalciferol (Vitamin D3) 50 mcg PO DAILY 06/26/24 06/26/24 History [Vitamin D3 (50 Mcg = 2000 Iu)] Citalopram Hydrobromide [CeleXA] 10 mg PO DAILY 06/26/24 06/26/24 History Colchicine 0.6 mg PO BID 06/26/24 06/26/24 History Furosemide [Lasix] 40 mg PO BID@0900,1500 06/26/24 06/26/24 History Latanoprost [Latanoprost 0.005%] 1 drop RIGHT EYE HS 06/26/24 06/26/24 History Metoprolol Tartrate [Lopressor] 200 mg PO BID 06/26/24 06/26/24 History metOLazone [Zaroxolyn] 2.5 mg PO Q48H 06/26/24 06/26/24 History Apixaban [Eliquis] 5 mg PO BID #60 tab 06/27/24 Rx Allergies Allergy/AdvReac Type Severity Reaction Status Date / Time DUST, MOLD Allergy SNEEZING, Uncoded 06/26/24 16:59 RHINITIS POLLEN Allergy SNEEZING, Uncoded 06/26/24 16:59 RHINITIS Physical Exam Vitals: Vital Signs Temp Pulse Resp BP BP Pulse Ox FiO2 07/02/24 13:52 80/55 07/02/24 13:37 97/60 07/02/24 13:19 86 07/02/24 13:15 80/53 07/02/24 13:10 81/54 07/02/24 12:34 92/60 07/02/24 11:18 97.5 F L 86 22 92/56 96 07/02/24 10:33 95/58 07/02/24 07:54 97.3 F L 97 20 85/57 92/58 93 L 07/02/24 04:22 21 07/02/24 03:30 87 20 112/50 94 L 07/02/24 01:13 21 07/01/24 23:10 76 20 94/51 92 L 07/01/24 21:24 21 07/01/24 20:45 97.9 F 70 20 111/57 96 Intake and Output 07/02/24 07/02/24 07/02/24 06:59 14:59 22:59 Intake Total 663.25 Output Total 100 150 Balance -100 513.25 Intake: Intake, IV Titration 3.25 Amount Furosemide 100 mg In 3.25 Sodium Chloride 0.9% 90 ml @ 5 MG/HR 5 mls/hr IV .Q20H [facility] Rx#:[id number] Oral 660 Output: Urine 100 150 Post Void Residual 0 Other: Voiding Method External Catheter Indwelling Catheter # Bowel Movements 1 Weight 153 kg The patient appeared well nourished and normally developed. Vital signs as documented. The patient is morbidly obese with a BMI of 44.5. Breathing is nonlabored and the patient is currently on 2 L of oxygen by nasal cannula Head exam is unremarkable. No scleral icterus or corneal arcus noted. Neck is with jugular venous distension, thyromegaly, or carotid bruits. Carotid upstrokes are brisk bilaterally. Lungs are clear to auscultation and percussion., The patient has diminished breath sound lung base bilaterally. Cardiac exam reveals the PMI to be normally sized and situated. Rhythm is regular. First and second heart sounds normal. No murmurs, rubs or gallops. Abdominal exam reveals normal bowel sounds, no masses, no organomegaly and no aortic enlargement. Extremities are +1-2 edematous and both femoral and pedal pulses are normal. Examination of the skin revealed no evidence of significant rashes, suspicious appearing nevi or other concerning lesions. Neurologically, the patient is awake and alert and the patient does not have any focal neurological deficit. Cranial nerves are essentially intact. Results - Laboratory Findings CBC and BMP: 06/30/24 08:41 07/02/24 07:38 PT/INR, D-dimer PT 19.2 sec (10.0-12.5) H 07/02/24 07:38 INR 1.9 (<1.2) H 07/02/24 07:38 Abnormal lab findings: Abnormal Labs 06/26/24 06/26/24 06/26/24 13:29 13:29 13:29 RBC 3.67 L Hgb 12.6 L Hct 37.7 L MCV 102.7 H MCH RDW 17.0 H Plt Count Lymphocytes # 0.4 L Macrocytosis ESR PT 106.6 H INR >10.0 H* APTT 57.5 H Sodium 136 L Potassium Chloride 97 L Carbon Dioxide 33 H BUN 52 H Creatinine 2.19 H Glucose 117 H POC Glucose (mg/dL) Total Bilirubin 5.0 H Conjugated Bilirubin Delta Bilirubin AST 167 H Alkaline Phosphatase 133 H C-Reactive Protein Total Protein Albumin 3.2 L Urine Protein Urine Blood Ur Leukocyte Esterase Urine RBC Urine WBC Urine Bacteria Urine Mucus 06/26/24 06/27/24 06/27/24 13:42 06:38 06:38 RBC Hgb Hct MCV MCH RDW Plt Count Lymphocytes # Macrocytosis ESR PT 29.8 H INR 3.0 H APTT Sodium 136 L Potassium 3.2 L Chloride 97 L Carbon Dioxide BUN 51 H Creatinine 2.13 H Glucose 100 H POC Glucose (mg/dL) Total Bilirubin Conjugated Bilirubin Delta Bilirubin AST Alkaline Phosphatase C-Reactive Protein Total Protein Albumin Urine Protein Trace H Urine Blood Small H Ur Leukocyte Esterase Moderate H Urine RBC 6 H Urine WBC 14 H Urine Bacteria Rare H Urine Mucus Rare H 06/27/24 06/27/24 06/27/24 06:41 10:36 10:36 RBC 3.50 L Hgb 12.2 L Hct 35.7 L MCV 102.1 H MCH RDW 17.6 H Plt Count 132 L Lymphocytes # 0.6 L Macrocytosis ESR 31 H PT INR APTT Sodium Potassium Chloride Carbon Dioxide BUN Creatinine Glucose POC Glucose (mg/dL) Total Bilirubin Conjugated Bilirubin Delta Bilirubin AST Alkaline Phosphatase C-Reactive Protein 4.9 H Total Protein Albumin Urine Protein Urine Blood Ur Leukocyte Esterase Urine RBC Urine WBC Urine Bacteria Urine Mucus 06/27/24 06/28/24 06/28/24 17:00 07:24 07:24 RBC Hgb Hct MCV MCH RDW Plt Count Lymphocytes # Macrocytosis ESR PT 21.0 H INR 2.1 H APTT Sodium 136 L Potassium 3.2 L Chloride Carbon Dioxide 31 H BUN 55 H Creatinine 2.21 H Glucose POC Glucose (mg/dL) 133 H Total Bilirubin 5.4 H Conjugated Bilirubin Delta Bilirubin AST 107 H Alkaline Phosphatase 134 H C-Reactive Protein Total Protein 6.2 L Albumin 3.0 L Urine Protein Urine Blood Ur Leukocyte Esterase Urine RBC Urine WBC Urine Bacteria Urine Mucus 06/28/24 06/29/24 06/29/24 07:24 07:03 07:03 RBC 3.64 L 3.30 L Hgb 12.4 L 11.5 L Hct 38.9 L 34.6 L MCV 106.9 H 104.9 H MCH RDW 17.0 H 17.2 H Plt Count 147 L Lymphocytes # 0.5 L 0.6 L Macrocytosis Marked A ESR PT 21.6 H INR 2.2 H APTT Sodium Potassium Chloride Carbon Dioxide BUN Creatinine Glucose POC Glucose (mg/dL) Total Bilirubin Conjugated Bilirubin Delta Bilirubin AST Alkaline Phosphatase C-Reactive Protein Total Protein Albumin Urine Protein Urine Blood Ur Leukocyte Esterase Urine RBC Urine WBC Urine Bacteria Urine Mucus 06/29/24 06/30/24 06/30/24 07:03 08:41 08:41 RBC 3.31 L Hgb 11.6 L Hct 34.5 L MCV 104.2 H MCH 35.1 H RDW 18.3 H Plt Count Lymphocytes # 0.5 L Macrocytosis ESR PT 21.1 H INR 2.1 H APTT Sodium Potassium Chloride Carbon Dioxide 33 H BUN 59 H Creatinine 2.53 H Glucose POC Glucose (mg/dL) Total Bilirubin Conjugated Bilirubin Delta Bilirubin AST Alkaline Phosphatase C-Reactive Protein Total Protein Albumin Urine Protein Urine Blood Ur Leukocyte Esterase Urine RBC Urine WBC Urine Bacteria Urine Mucus 06/30/24 07/01/24 07/01/24 08:41 07:19 10:19 RBC Hgb Hct MCV MCH RDW Plt Count Lymphocytes # Macrocytosis ESR PT 19.8 H INR 2.0 H APTT Sodium 134 L 134 L Potassium Chloride 96 L Carbon Dioxide 32 H 32 H BUN 69 H 79 H Creatinine 2.89 H 2.92 H Glucose 118 H POC Glucose (mg/dL) Total Bilirubin 3.4 H Conjugated Bilirubin 0.5 H Delta Bilirubin 2.3 H AST 90 H Alkaline Phosphatase 153 H C-Reactive Protein Total Protein 5.9 L Albumin 2.8 L Urine Protein Urine Blood Ur Leukocyte Esterase Urine RBC Urine WBC Urine Bacteria Urine Mucus 07/02/24 07/02/24 07/02/24 07:38 07:38 14:46 RBC Hgb Hct MCV MCH RDW Plt Count Lymphocytes # Macrocytosis ESR PT 19.2 H INR 1.9 H APTT Sodium 134 L Potassium Chloride 97 L Carbon Dioxide BUN 83 H Creatinine 3.54 H Glucose POC Glucose (mg/dL) 127 H Total Bilirubin Conjugated Bilirubin Delta Bilirubin AST Alkaline Phosphatase C-Reactive Protein Total Protein Albumin Urine Protein Urine Blood Ur Leukocyte Esterase Urine RBC Urine WBC Urine Bacteria Urine Mucus Assessment and Plan Plan: Chronic hypotension, multifactorial, probably related to septic and cardiogenic factors and the patient has developed massive anasarca and volume overload. Currently on midodrine. Acute on chronic stage IIIb kidney disease with massive volume overload Hypertension Hyperlipidemia Chronic atrial fibrillation, maintained on anticoagulation with Eliquis Enterococcus urinary tract infection currently on IV Unasyn. Right-sided heart failure. The patient has diastolic heart failure with echocardiogram from 06/27/2024 showing preserved LV function with an ejection fraction of 50 to 55%. Severe RV dilatation, severe pulm hypertension with a right ventricular pressure of around 56 mmHg along with moderate mitral regurgitation and severe tricuspid regurgitation. Morbid obesity Gout History of obstructive sleep apnea, not tolerant to CPAP therapy Previous history of WPW and SVT Osteoarthritis Previous history of DVT of lower extremities Glucoma Plan Titrate oxygen flow to maintain saturation above 90%, currently on 2 L Lasix to be started 5 mg an hour Continue Zaroxolyn Norepinephrine for blood pressure support Midodrine for blood pressure support Continue anticoagulation with Eliquis Nephrology on the case We will continue to follow
[2024-07-03 06:29] LABS: Anisocytosis Slight; Basophils % (A) 1 %; Eosinophils # (A) 0.2 k/uL (0-0.7); Eosinophils % (A) 2 %; HCT 37.8 % (39.0-53.0); HGB 12.2 gm/dL (13.0-17.5); Hypochromasia Slight; Lymphocytes # (A) 0.7 k/uL (1.0-4.8); Lymphocytes % (A) 8 %; MCH 34.3 pg (25.0-35.0); MCHC 32.2 g/dL (31.0-37.0); Macrocytosis Marked; Mean Platelet Volume 7.9; Monocytes # (A) 0.8 k/uL (0-1.0); Monocytes % (A) 9 %; Neutrophils # (A) 6.6 k/uL (1.3-7.7); Neutrophils % (A) 78 %; Platelet Count 220 k/uL (150-450); RBC 3.55 m/uL (4.30-5.90); RDW 17.8 % (11.5-15.5); WBC 8.4 k/uL (3.8-10.6)
[2024-07-03 06:36] LABS: MCV 106.6 fL (80.0-100.0)
[2024-07-03 06:41] LABS: African American GFR (CKD) 18 (>60 ml/min/1.73 sqM); Anion Gap 10 mmol/L; Blood Urea Nitrogen 92 mg/dL (9-20); Calcium 9.1 mg/dL (8.4-10.2); Carbon Dioxide 27 mmol/L (22-30); Chloride 96 mmol/L (98-107); Glucose 99 mg/dL (74-99); Magnesium 2.2 mg/dL (1.6-2.3); Non-African American GFR(CKD) 16 (>60 ml/min/1.73 sqM); Potassium 4.7 mmol/L (3.5-5.1); Sodium 133 mmol/L (137-145)
--- NOTE | 2024-07-03 08:45 | P.PN ---
Subjective Progress Note Date: 07/03/24 Principal diagnosis: Debility with hypotension. The patient is a 78-year-old white male transferred to the ICU related to hypotension after receiving Lasix drip. The patient is resting comfortably. No headache no shortness of breath he is well aware of his overall debility. He and his have been coping staying independent Objective - Vital Signs Vital signs: Vital Signs Temp 97.9 F 07/03/24 04:00 Pulse 81 07/03/24 07:00 Resp 17 07/03/24 07:00 BP 91/68 07/03/24 07:00 Pulse Ox 94 L 07/03/24 07:00 FiO2 21 07/03/24 04:20 Intake & Output 07/02/24 07/03/24 07/03/24 18:59 06:59 18:59 Intake Total 773.25 270 Output Total 255 530 Balance 518.25 -260 Weight 187.1 kg Intake: IV 110 30 Ampicillin-Sulbactam 3 gm 100 In Sodium Chloride 0.9% 100 ml @ 200 mls/hr IVPB Q8HR [facility] Rx#:[id number] Invasive Line 4 10 30 Intake, IV Titration 3.25 Amount Furosemide 100 mg In 3.25 Sodium Chloride 0.9% 90 ml @ 5 MG/HR 5 mls/hr IV .Q20H [facility] Rx#:[id number] Oral 660 240 Output: Urine 255 530 Other: Voiding Method Indwelling Catheter Indwelling Catheter # Bowel Movements 1 - Constitutional General appearance: Present: morbidly obese - EENT Eyes: Absent: abnormal pupil - Neck Neck: Absent: lymphadenopathy - Respiratory Respiratory: bilateral: diminished - Cardiovascular Rhythm: irregularly irregular Heart sounds: normal: S1, S2 Abnormal Heart Sounds: Absent: S3 Gallop - Gastrointestinal General gastrointestinal: Present: soft. Absent: tenderness - Labs CBC & Chem 7: 07/03/24 05:46 07/03/24 05:46 Labs: Abnormal Lab Results - Last 24 Hours (Table) 07/02/24 07/02/24 07/03/24 Range/Units 07:38 14:46 05:46 RBC 3.55 L (4.30-5.90) m/uL Hgb 12.2 L (13.0-17.5) gm/dL Hct 37.8 L (39.0-53.0) % MCV 106.6 H (80.0-100.0) fL RDW 17.8 H (11.5-15.5) % Lymphocytes # 0.7 L (1.0-4.8) k/uL Macrocytosis Marked A Sodium 134 L (137-145) mmol/L Chloride 97 L (98-107) mmol/L BUN 83 H (9-20) mg/dL Creatinine 3.54 H (0.66-1.25) mg/dL POC Glucose (mg/dL) 127 H (70-110) mg/dL 07/03/24 Range/Units 05:46 RBC (4.30-5.90) m/uL Hgb (13.0-17.5) gm/dL Hct (39.0-53.0) % MCV (80.0-100.0) fL RDW (11.5-15.5) % Lymphocytes # (1.0-4.8) k/uL Macrocytosis Sodium 133 L (137-145) mmol/L Chloride 96 L (98-107) mmol/L BUN 92 H (9-20) mg/dL Creatinine 3.53 H (0.66-1.25) mg/dL POC Glucose (mg/dL) (70-110) mg/dL Assessment and Plan (1) Hypotension Current Visit: Yes Status: Acute Code(s): I95.9 - HYPOTENSION, UNSPECIFIED SNOMED Code(s): 21213532 (2) Left leg cellulitis Current Visit: Yes Status: Acute Code(s): L03.116 - CELLULITIS OF LEFT LOWER LIMB SNOMED Code(s): 22129295514504035 (3) Weakness Current Visit: Yes Status: Acute Code(s): R53.1 - WEAKNESS SNOMED Code(s): 48201208 Plan: Continue to follow closely in ICU. Appreciate consultants input. Discharge planning element. Check CBC and CMP in a.m.
--- NOTE | 2024-07-03 10:22 | P.PN ---
Subjective HISTORY OF PRESENTING ILLNESS This is a 78-year-old patient of Dr. Deleon with past medical history of morbid obesity, permanent atrial fibrillation on Coumadin, hypertension, dyslipidemia, history of DVT, dilated thoracic aorta and valvular heart disease, pulmonary hypertension. We have been asked to evaluate the patient for heart failure. Patient gives history that he had a fall at home. He states his knee gave out on him. He complains of shortness of breath. He feels poorly in general. He is not very active at home. He denies having any fever. No history of smoking. No palpitations. Edema which she states is at his baseline. No blood in his stool or urine. No history of stroke or seizure. 07/01/2024 Was seen and examined resting comfortably in bed. Blood pressure is improved but remains on the low side. He is being followed by nephrology who has started a Lasix drip at 10 mL/h. They have increased metolazone to 5 mg p.o. daily and discontinued Farxiga due to current infection. Overall patient continues to complain of shortness of breath. Continues to complain of orthopnea but improving. Continues to complain of significant lower extremity edema labs this morning showed a creatinine of 2.92. INR 2.0. 07/02/2024 The patient was seen and examined resting comfortably in bed. He is overall feeling his breathing is a bit better. Continues to have significant edema. Continues to be followed by nephrology with adjustments made to his diuretics as well as the addition of albumin. Renal function is worse with a creatinine of 3.54. Blood pressure remains low. 07/03 Patient seen and examined. Patient remains on metoprolol 100 twice a day with borderline blood pressures and patient has been on norepinephrine as well as a Lasix drip at 5 and Zaroxolyn. Urine output approximately 50 mL/h. Denies a chest pain or pressure. Still significant large from edema. Creatinine relatively stable at 3.5. PHYSICAL EXAMINATION Vital signs reviewed. CONSTITUTIONAL: No apparent distress. HEENT: Head is normocephalic. Pupils are equal, round. Sclerae anicteric. Mucous membranes of the mouth are moist. No JVD. No carotid bruit. CHEST EXAMINATION: Lungs are clear to auscultation. No chest wall tenderness is noted on palpation or with deep breathing. HEART EXAMINATION: Regular rate and rhythm. S1, S2 heard. No murmurs, gallops or rub. ABDOMEN: Soft, nontender. Positive bowel sounds. EXTREMITIES: 2+ peripheral pulses, 2+ lower extremity edema and no calf tenderness. NEUROLOGIC EXAMINATION: Patient is awake, alert and oriented x3. ASSESSMENT Generalized weakness and fall Permanent atrial fibrillation on Coumadin and will transition to Eliquis however may consider RHC and hold for now Acute on chronic diastolic heart failure, mainly right sided Supratherapeutic INR Hypertension Dyslipidemia History of DVT Dilated thoracic aorta Valvular heart disease with moderate MR, moderate to severe pulmonary hypertension Plan: Patient with cardiorenal syndrome as well as increased liver enzymes likely related to hepatic congestion. Appears to be slowly improving with Lasix drip and Zaroxolyn. If some ambiguity May consider right heart catheterization. Continue with metoprolol for now however if still worsening may consider decreasing and trial of inoptropes. Still appears volume overloaded. Consider rebiopsy O and consider SGOT 2 inhibitor however he did present with urinary tract infection and unclear. Will be good candidate. Hold her body of for now however likely if stable tomorrow start Revatio. Patient may benefit from pulmonary hypertension specialist workup as an outpt. Prognosis guarded. Objective - Vital Signs Vital signs: Vital Signs Temp 97.7 F 07/03/24 08:00 Pulse 96 07/03/24 09:30 Resp 7 L 07/03/24 09:30 BP 94/65 07/03/24 09:30 Pulse Ox 96 07/03/24 09:30 FiO2 21 07/03/24 08:51 Intake & Output 07/02/24 07/03/24 07/03/24 18:59 06:59 18:59 Intake Total 773.25 270 630 Output Total 255 530 150 Balance 518.25 -260 480 Weight 187.1 kg Intake: IV 110 30 10 Ampicillin-Sulbactam 3 gm 100 In Sodium Chloride 0.9% 100 ml @ 200 mls/hr IVPB Q8HR [facility] Rx#:[id number] Invasive Line 4 10 30 10 Intake, IV Titration 3.25 Amount Furosemide 100 mg In 3.25 Sodium Chloride 0.9% 90 ml @ 5 MG/HR 5 mls/hr IV .Q20H [facility] Rx#:[id number] Oral 660 240 620 Output: Urine 255 530 150 Other: Voiding Method Indwelling Catheter Indwelling Catheter Indwelling Catheter # Bowel Movements 1 - Labs CBC & Chem 7: 07/03/24 05:46 07/03/24 05:46 Labs: Abnormal Lab Results - Last 24 Hours (Table) 07/02/24 07/03/24 07/03/24 Range/Units 14:46 05:46 05:46 RBC 3.55 L (4.30-5.90) m/uL Hgb 12.2 L (13.0-17.5) gm/dL Hct 37.8 L (39.0-53.0) % MCV 106.6 H (80.0-100.0) fL RDW 17.8 H (11.5-15.5) % Lymphocytes # 0.7 L (1.0-4.8) k/uL Macrocytosis Marked A Sodium 133 L (137-145) mmol/L Chloride 96 L (98-107) mmol/L BUN 92 H (9-20) mg/dL Creatinine 3.53 H (0.66-1.25) mg/dL POC Glucose (mg/dL) 127 H (70-110) mg/dL
--- NOTE | 2024-07-03 11:43 | P.PN ---
Subjective patient is seen for follow-up for acute kidney injury and chronic kidney disease. Currently maintained on Lasix drip at 5 mg an hour. Patient has an indwelling Monzon catheter which was placed by urology. Urine output at about 50-70 mL an hour. Blood pressure remains low and patient is maintained on low-dose levo fed. Objective - Vital Signs Vital signs: Vital Signs Temp 97.7 F 07/03/24 08:00 Pulse 84 07/03/24 10:15 Resp 12 07/03/24 10:15 BP 95/65 07/03/24 10:15 Pulse Ox 98 07/03/24 10:15 FiO2 21 07/03/24 08:51 Intake & Output 07/02/24 07/03/24 07/03/24 18:59 06:59 18:59 Intake Total 773.25 270 630 Output Total 255 530 210 Balance 518.25 -260 420 Weight 187.1 kg Intake: IV 110 30 10 Ampicillin-Sulbactam 3 gm 100 In Sodium Chloride 0.9% 100 ml @ 200 mls/hr IVPB Q8HR [facility] Rx#:[id number] Invasive Line 4 10 30 10 Intake, IV Titration 3.25 Amount Furosemide 100 mg In 3.25 Sodium Chloride 0.9% 90 ml @ 5 MG/HR 5 mls/hr IV .Q20H [facility] Rx#:[id number] Oral 660 240 620 Output: Urine 255 530 210 Other: Voiding Method Indwelling Catheter Indwelling Catheter Indwelling Catheter # Bowel Movements 1 - Exam Patient is awake, comfortable, no acute distress. Examination of the heart S1 and S2 Examination of the lungs decreased breath sounds at the bases Abdomen is soft obese nontender Examination of lower extremities shows edema 2+ bilaterally COLLATERAL CLERK exam grossly intact - Labs CBC & Chem 7: 07/03/24 05:46 07/03/24 05:46 Labs: Abnormal Lab Results - Last 24 Hours (Table) 07/02/24 07/03/24 07/03/24 Range/Units 14:46 05:46 05:46 RBC 3.55 L (4.30-5.90) m/uL Hgb 12.2 L (13.0-17.5) gm/dL Hct 37.8 L (39.0-53.0) % MCV 106.6 H (80.0-100.0) fL RDW 17.8 H (11.5-15.5) % Lymphocytes # 0.7 L (1.0-4.8) k/uL Macrocytosis Marked A Sodium 133 L (137-145) mmol/L Chloride 96 L (98-107) mmol/L BUN 92 H (9-20) mg/dL Creatinine 3.53 H (0.66-1.25) mg/dL POC Glucose (mg/dL) 127 H (70-110) mg/dL Assessment and Plan Assessment: 1. Acute kidney injury secondary to ATN secondary to hypotension and cardiorenal syndrome. Creatinine remains at 3.5 today. No hydronephrosis noted on ultrasound. Trace protein on UA. 2. 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 Creatinine 1.5 in March 2024. 3. Acute on chronic diastolic CHF and moderate mitral consultation, severe tr icuspid regurgitation and pulmonary hypertension. 4. Volume overload. Maintained on Lasix drip. 5. Right lower extremity cellulitis and Enterococcus UTI on antibiotics. ID following. 6. Hypervolemic hyponatremia. Stable. Plan: increase Lasix drip to 10 mg an hour Continue with midodrine continue antibiotics Repeat labs in a.m. monitor potassium as patient is maintained on potassium supplementation.
--- NOTE | 2024-07-03 12:25 | P.PN ---
Subjective Progress Note Date: 07/03/24 Principal diagnosis: Acute on chronic right-sided congestive heart failure with chronic hypotension This is a 78-year-old male patient with massive fluid overload, ongoing diffic ulty with chronic kidney failure as the patient has developed an acute on top of chronic renal disease with extensive third spacing and anasarca and possibly a component of cardiorenal syndrome. 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 Baseline creatinine is around 1.5 back in March 2024. The patient presented to us with volume overload, acute on top of chronic diastolic heart failure with moderate mitral regurgitation. Patient also was diagnosed having an Enterococcus urinary tract infection currently on IV Unasyn. Initial rate, attempts to diurese this patient with Lasix have failed due to ongoing hypotension. The patient was started on midodrine 10 mg p.o. 4 times daily. Subsequently, I was asked to transfer this patient to the ICU for hemodynamic support and pressor use as the patient was going to be started on Lasix 5 mg infusion in combination with Zaroxolyn 5 mg p.o. daily. Based on that, the patient was transferred to the ICU. Lasix s drip was started and the patient will be started also on norepinephrine for blood pressure support. He is currently awake and alert. Following commands. He is on oxygen at 2 L/min nasal cannula. His chest x-ray showing small bilateral pleural effusion and this is less x-ray that was done on 06/26/2024. Patient was evaluated today on 07/03/24, remains in the ICU, he was seen by Dr. Jp nance on consultation yesterday, he was placed on Lasix drip at 5 mg/h, making about 50 to 75 cc of urine per hour. Blood pressure is marginal he is requiring norepinephrine at 0.06 mcg/kg/min. Patient is not complaining of shortness of breath, he is on 2 L nasal cannula, he seems to be extremely swollen edematous and has anasarca. Nonetheless the patient is feeling better compared to yesterday. And seemsto be responding to the Lasix drip. WBC count is 8.4 hemoglobin 12.2 electrolytes are normal BUN is 92 creatinine 3.53., Relatively unchanged compared to yesterday.Patient's baseline creatinine on 06/26 was 2.19. Patient is receiving Unasyn for what seems to be acute urinary tract infection secondary to Enterococcus. Faecalis. Objective - Vital Signs Vital signs: Vital Signs Temp 98.2 F 07/03/24 12:00 Pulse 87 07/03/24 12:00 Resp 12 07/03/24 12:00 BP 106/59 07/03/24 12:00 Pulse Ox 99 07/03/24 12:00 FiO2 21 07/03/24 08:51 Intake & Output 07/02/24 07/03/24 07/03/24 18:59 06:59 18:59 Intake Total 773.25 270 640 Output Total 255 530 300 Balance 518.25 -260 340 Weight 187.1 kg Intake: IV 110 30 20 Ampicillin-Sulbactam 3 gm 100 In Sodium Chloride 0.9% 100 ml @ 200 mls/hr IVPB Q8HR [facility] Rx#:[id number] Invasive Line 4 10 30 20 Intake, IV Titration 3.25 Amount Furosemide 100 mg In 3.25 Sodium Chloride 0.9% 90 ml @ 5 MG/HR 5 mls/hr IV .Q20H [facility] Rx#:[id number] Oral 660 240 620 Output: Urine 255 530 300 Other: Voiding Method Indwelling Catheter Indwelling Catheter Indwelling Catheter # Bowel Movements 1 - Exam General: Revealed a 78-year-old white male morbidly obese on 2 L nasal cannula, not in distress. Head exam is unremarkable. No scleral icterus or corneal arcus noted. Neck positive h jugular venous distension, thyromegaly, or carotid bruits. Carotid upstrokes are brisk bilaterally. Lungs: Diminished breath sound bilaterally no rhonchi no wheezes Cardiac: Distant S1-S2, no S3 gallop, no murmur. Abdominal: Morbidly obese soft nontender no megaly positive abdominal wall edema Extremities 2+ bipedal edema femoral and pedal pulses are normal. Neurologically, alert oriented x 3 no gross focal deficits Psychiatric: Normal mood affect and no mental status examination. Skin: No rashes. - Labs CBC & Chem 7: 07/03/24 05:46 07/03/24 05:46 Labs: Abnormal Lab Results - Last 24 Hours (Table) 07/02/24 07/03/24 07/03/24 Range/Units 14:46 05:46 05:46 RBC 3.55 L (4.30-5.90) m/uL Hgb 12.2 L (13.0-17.5) gm/dL Hct 37.8 L (39.0-53.0) % MCV 106.6 H (80.0-100.0) fL RDW 17.8 H (11.5-15.5) % Lymphocytes # 0.7 L (1.0-4.8) k/uL Macrocytosis Marked A Sodium 133 L (137-145) mmol/L Chloride 96 L (98-107) mmol/L BUN 92 H (9-20) mg/dL Creatinine 3.53 H (0.66-1.25) mg/dL POC Glucose (mg/dL) 127 H (70-110) mg/dL Assessment and Plan Assessment: Impression: Acute on chronic right-sided congestive heart failure with hypotension Acute on chronic stage IIIb kidney disease with massive volume overload Hyperlipidemia Chronic atrial fibrillation, maintained on anticoagulation with Eliquis Enterococcus urinary tract infection currently on IV Unasyn. Severe pulmonary hypertension Morbid obesity Gout History of obstructive sleep apnea, not tolerant to CPAP therapy Previous history of WPW and SVT Osteoarthritis Previous history of DVT of lower extremities Glucoma Plan Continue oxygen and titrate accordingly continue diuretics including Lasix drip and Zaroxolyn Monitor closely electrolytes and renal profile Continue hemodynamic support, patient is requiring a small dose of norepinephrine Continue midodrine Continue anticoagulation with Eliquis Nephrology on the case Prognosis is guarded We will continue to follow Time with Patient: Less than 30
--- NOTE | 2024-07-03 12:49 | P.PN ---
Subjective Catheter draining clear yellow urine. Objective - Vital Signs Vital signs: Vital Signs Temp 98.2 F 07/03/24 12:00 Pulse 87 07/03/24 12:00 Resp 12 07/03/24 12:00 BP 106/59 07/03/24 12:00 Pulse Ox 99 07/03/24 12:00 FiO2 21 07/03/24 08:51 Intake & Output 07/02/24 07/03/24 07/03/24 18:59 06:59 18:59 Intake Total 773.25 270 640 Output Total 255 530 300 Balance 518.25 -260 340 Weight 187.1 kg Intake: IV 110 30 20 Ampicillin-Sulbactam 3 gm 100 In Sodium Chloride 0.9% 100 ml @ 200 mls/hr IVPB Q8HR [facility] Rx#:[id number] Invasive Line 4 10 30 20 Intake, IV Titration 3.25 Amount Furosemide 100 mg In 3.25 Sodium Chloride 0.9% 90 ml @ 5 MG/HR 5 mls/hr IV .Q20H [facility] Rx#:[id number] Oral 660 240 620 Output: Urine 255 530 300 Other: Voiding Method Indwelling Catheter Indwelling Catheter Indwelling Catheter # Bowel Movements 1 - Constitutional General appearance: Present: no acute distress - Gastrointestinal General gastrointestinal: Present: soft. Absent: distended, tenderness - Labs CBC & Chem 7: 07/03/24 05:46 07/03/24 05:46 Labs: Abnormal Lab Results - Last 24 Hours (Table) 07/02/24 07/03/24 07/03/24 Range/Units 14:46 05:46 05:46 RBC 3.55 L (4.30-5.90) m/uL Hgb 12.2 L (13.0-17.5) gm/dL Hct 37.8 L (39.0-53.0) % MCV 106.6 H (80.0-100.0) fL RDW 17.8 H (11.5-15.5) % Lymphocytes # 0.7 L (1.0-4.8) k/uL Macrocytosis Marked A Sodium 133 L (137-145) mmol/L Chloride 96 L (98-107) mmol/L BUN 92 H (9-20) mg/dL Creatinine 3.53 H (0.66-1.25) mg/dL POC Glucose (mg/dL) 127 H (70-110) mg/dL Assessment and Plan Assessment: 78-year-old male with incomplete bladder emptying, PVR has been ranged anywhere from 0 to 700 mL. He is having minimal urine output at this time, creatinine continues to worsen now up to 3.5. Attempt to place catheter by nursing staff was unsuccessful. Catheter was placed by me yesterday, patient had stent penile edema, phimosis and meatal stenosis which made catheter placement very difficult. This time recommend keeping the catheter until patient clinical status is improved and he is closer to discharge.
--- NOTE | 2024-07-03 23:01 | P.PN ---
Subjective Progress Note Date: 07/03/24 Principal diagnosis: Reason for follow-up is left leg cellulitis Patient is a 78-year-old male with a past medical history significant for atrial fibrillation hypertension hyperlipidemia osteoarthritis sleep apnea presenting to the hospital for evaluation of weakness and fall patient has been diagnosed with a left lower extremity cellulitis prompted this consultation. On today's evaluation that is 07/03/2024,the patient denies any fever or any chills, patient is breathing comfortably on 2 L nasal cannula oxygen, the patient denies chest pain shortness of breath and no significant cough, patient denies abdominal pain, no nausea vomiting or diarrhea, denies pain to the lower extremity. Patient white count is 8.4, creatinine 3.53 Objective - Vital Signs Vital signs: Vital Signs Temp 98.2 F 07/03/24 12:00 Pulse 87 07/03/24 12:00 Resp 12 07/03/24 12:00 BP 106/59 07/03/24 12:00 Pulse Ox 99 07/03/24 12:00 FiO2 21 07/03/24 08:51 Intake & Output 07/02/24 07/03/24 07/03/24 18:59 06:59 18:59 Intake Total 773.25 524 640.874 Output Total 255 530 300 Balance 518.25 -6 340.874 Weight 187.1 kg 187.1 kg Intake: IV 110 30 20 Ampicillin-Sulbactam 3 gm 100 In Sodium Chloride 0.9% 100 ml @ 200 mls/hr IVPB Q8HR [facility] Rx#:[id number] Invasive Line 4 10 30 20 Intake, IV Titration 3.25 254 0.874 Amount Furosemide 100 mg In 3.25 0 Sodium Chloride 0.9% 90 ml @ 5 MG/HR 5 mls/hr IV .Q20H [facility] Rx#:[id number] Norepinephrine 4 mg In 254 0.874 Sodium Chloride 0.9% 250 ml @ 0.03 MCG/KG/MIN 17. 488 mls/hr IV .[id number] [facility] Rx#:[id number] Oral 660 240 620 Output: Urine 255 530 300 Other: Voiding Method Indwelling Catheter Indwelling Catheter Indwelling Catheter # Bowel Movements 1 - Exam GENERAL DESCRIPTION: An elderly male lying in bed in no distress RESPIRATORY SYSTEM: Unlabored breathing , decreased breath sounds at bases HEART: S1 S2 regular rate and rhythm , ABDOMEN: Soft , no tenderness EXTREMITIES: Left leg swelling redness slightly decreased no open wound or any drainage - Labs CBC & Chem 7: 07/03/24 05:46 07/03/24 05:46 Labs: Abnormal Lab Results - Last 24 Hours (Table) 07/03/24 07/03/24 Range/Units 05:46 05:46 RBC 3.55 L (4.30-5.90) m/uL Hgb 12.2 L (13.0-17.5) gm/dL Hct 37.8 L (39.0-53.0) % MCV 106.6 H (80.0-100.0) fL RDW 17.8 H (11.5-15.5) % Lymphocytes # 0.7 L (1.0-4.8) k/uL Macrocytosis Marked A Sodium 133 L (137-145) mmol/L Chloride 96 L (98-107) mmol/L BUN 92 H (9-20) mg/dL Creatinine 3.53 H (0.66-1.25) mg/dL Assessment and Plan (1) Left leg cellulitis Current Visit: Yes Status: Acute Code(s): L03.116 - CELLULITIS OF LEFT LOWER LIMB SNOMED Code(s): 86183548313768414 Plan: 1patient presented to hospital with generalized weakness and falls in this patient who did have chronic swelling to the lower extremity now with worsening swelling redness to the left leg concerning for cellulitis likely streptococcal disease with diffuse swelling and redness no evidence of any purulence 2-patient is afebrile white count is normal lower extremity swelling persist redness slightly decreased continue with Unasyn and monitor clinical course closely Dictation was produced using [employer]!ation software. please excuse any grammatical, word or spelling errors. Time with Patient: Less than 30
[2024-07-04 06:36] LABS: Anisocytosis Slight; HCT 37.1 % (39.0-53.0); HGB 11.9 gm/dL (13.0-17.5); Hypochromasia Slight; MCH 34.6 pg (25.0-35.0); MCHC 32.2 g/dL (31.0-37.0); MCV 107.5 fL (80.0-100.0); Platelet Count 185 k/uL (150-450); RBC 3.45 m/uL (4.30-5.90); RDW 17.9 % (11.5-15.5); WBC 8.4 k/uL (3.8-10.6)
[2024-07-04] MEDS: PANTOPRAZOLE 40 MG TABLET PO SCH (06:39)
[2024-07-04 06:49] LABS: ALT 6 U/L (4-49); AST 55 U/L (17-59); African American GFR (CKD) 17 (>60 ml/min/1.73 sqM); Alkaline Phosphatase 174 U/L (38-126); Anion Gap 7 mmol/L; Blood Urea Nitrogen 95 mg/dL (9-20); Carbon Dioxide 27 mmol/L (22-30); Chloride 99 mmol/L (98-107); Glucose 100 mg/dL (74-99); Non-African American GFR(CKD) 15 (>60 ml/min/1.73 sqM); Potassium 4.8 mmol/L (3.5-5.1); Sodium 133 mmol/L (137-145); Total Bilirubin 4.2 mg/dL (0.2-1.3); Total Protein 6.2 g/dL (6.3-8.2)
[2024-07-04 06:55] LABS: Macrocytosis Marked
--- NOTE | 2024-07-04 08:17 | XR ---
EXAMINATION TYPE: XR chest 1V portable DATE OF EXAM: 07/04/2024 5:49 AM CLINICAL INDICATION: Male, 78 years old with history of CHF; [facility] COMPARISON: Chest radiographs from 06/26/2024 TECHNIQUE: XR chest 1V portable Frontal view of the chest. FINDINGS: Lungs/Pleura: No evidence of focal consolidation or pneumothorax. Blunting of the costophrenic angles is present. Pulmonary vascularity: Pulmonary vascular congestion. Heart/mediastinum: Cardiomediastinal silhouette is enlarged. Musculoskeletal: No acute osseous pathology. IMPRESSION: Cardiomegaly and mild pulmonary vascular congestion. Correlate with BNP for congestive heart failure. [facility], , 07/04/2024 8:15 AM
--- NOTE | 2024-07-04 09:06 | P.PN ---
Subjective Progress Note Date: 07/04/24 This is a 78-year-old male who originally presented to the emergency department after a fall at home, reportedly his knee gave out. Patient also complained of shortness of breath and feels poorly overall. Patient became hypotensive and was transferred to the ICU. Creatinine remains elevated and he has been on Lasix drip. Patient lives with his at home, who he cares for. Patient seen this morning resting comfortably in bed. He is still hypotensive this morning. Creatinine today is 3.77. Objective - Vital Signs Vital signs: Vital Signs Temp 98.1 F 07/04/24 00:00 Pulse 92 07/04/24 07:00 Resp 16 07/04/24 07:00 BP 102/65 07/04/24 07:00 Pulse Ox 97 07/04/24 08:08 FiO2 21 07/04/24 04:16 Intake & Output 07/03/24 07/04/24 07/04/24 18:59 06:59 18:59 Intake Total 0724.409 5977.018 10 Output Total 555 800 Balance 483.324 399.018 10 Weight 187.1 kg 188.105 kg Intake: IV 30 190 10 Invasive Line 4 30 30 10 KVO 0.9 NS 160 Intake, IV Titration 148.324 809.018 Amount Ampicillin-Sulbactam 3 gm 100 In Sodium Chloride 0.9% 100 ml @ 200 mls/hr IVPB Q12H [facility] Rx#:[id number] Furosemide 100 mg In 13.667 80 Sodium Chloride 0.9% 90 ml @ 5 MG/HR 5 mls/hr IV .Q20H [facility] Rx#:[id number] Norepinephrine 4 mg In 134.657 629.018 Sodium Chloride 0.9% 250 ml @ 0.03 MCG/KG/MIN 17. 488 mls/hr IV .[id number] [facility] Rx#:[id number] Oral 860 200 Output: Urine 555 800 Other: Voiding Method Indwelling Catheter Indwelling Catheter - Constitutional General appearance: Present: cooperative, no acute distress - EENT Eyes: Present: PERRLA - Neck Neck: Present: normal ROM. Absent: lymphadenopathy, rigidity - Respiratory Respiratory: bilateral: diminished - Cardiovascular Heart sounds: normal: S1, S2 - Gastrointestinal General gastrointestinal: Present: soft. Absent: tenderness - Integumentary Integumentary: Present: normal, normal turgor - Musculoskeletal Musculoskeletal: Present: generalized weakness - Psychiatric Psychiatric: Present: A&O x's 3 - Labs CBC & Chem 7: 07/04/24 06:00 07/04/24 06:00 Labs: Abnormal Lab Results - Last 24 Hours (Table) 07/04/24 07/04/24 Range/Units 06:00 06:00 RBC 3.45 L (4.30-5.90) m/uL Hgb 11.9 L (13.0-17.5) gm/dL Hct 37.1 L (39.0-53.0) % MCV 107.5 H (80.0-100.0) fL RDW 17.9 H (11.5-15.5) % Macrocytosis Marked A Sodium 133 L (137-145) mmol/L BUN 95 H (9-20) mg/dL Creatinine 3.77 H (0.66-1.25) mg/dL Glucose 100 H (74-99) mg/dL Total Bilirubin 4.2 H (0.2-1.3) mg/dL Alkaline Phosphatase 174 H (38-126) U/L Total Protein 6.2 L (6.3-8.2) g/dL Albumin 3.0 L (3.5-5.0) g/dL Assessment and Plan (1) Hypotension Current Visit: Yes Status: Acute Code(s): I95.9 - HYPOTENSION, UNSPECIFIED SNOMED Code(s): 38716206 (2) Weakness Current Visit: Yes Status: Acute Code(s): R53.1 - WEAKNESS SNOMED Code(s): 21373039 (3) Cellulitis Current Visit: Yes Status: Acute Code(s): L03.90 - CELLULITIS, UNSPECIFIED SNOMED Code(s): 073540213 (4) Acute kidney injury Current Visit: Yes Status: Acute Code(s): N17.9 - ACUTE KIDNEY FAILURE, UNSPECIFIED SNOMED Code(s): 54505667 Plan: Check CBC and CMP in the morning. Appreciate multiple consultants. Patient seen and evaluated by nurse practitioner, physician in agreement with plan
--- NOTE | 2024-07-04 12:43 | P.PN ---
Subjective patient is seen for follow-up for acute kidney injury and chronic kidney disease. Currently maintained on Lasix drip at 10 mg an hour. Patient has an indwelling Monzon catheter which was placed by urology. Urine output at about 50-70 mL an hour. Blood pressure remains low and patient is maintained on low-dose levo fed. Serum creatinine increased to 3.7 today Objective - Vital Signs Vital signs: Vital Signs Temp 97.9 F 07/04/24 08:00 Pulse 87 07/04/24 09:15 Resp 19 07/04/24 09:15 BP 102/56 07/04/24 09:15 Pulse Ox 96 07/04/24 09:15 FiO2 21 07/04/24 04:16 Intake & Output 07/03/24 07/04/24 07/04/24 18:59 06:59 18:59 Intake Total 0586.564 4540.018 390.981 Output Total 555 800 195 Balance 483.324 399.018 195.981 Weight 187.1 kg 188.105 kg Intake: IV 30 190 40 Invasive Line 4 30 30 10 KVO 0.9 NS 160 30 Intake, IV Titration 148.324 809.018 350.981 Amount Ampicillin-Sulbactam 3 gm 100 In Sodium Chloride 0.9% 100 ml @ 200 mls/hr IVPB Q12H [facility] Rx#:[id number] Furosemide 100 mg In 13.667 80 82.833 Sodium Chloride 0.9% 90 ml @ 5 MG/HR 5 mls/hr IV .Q20H [facility] Rx#:[id number] Norepinephrine 4 mg In 134.657 629.018 268.148 Sodium Chloride 0.9% 250 ml @ 0.03 MCG/KG/MIN 17. 488 mls/hr IV .[id number] [facility] Rx#:[id number] Oral 860 200 Output: Urine 555 800 195 Other: Voiding Method Indwelling Catheter Indwelling Catheter Indwelling Catheter - Exam Patient is awake, comfortable, no acute distress. Examination of the heart S1 and S2 Examination of the lungs decreased breath sounds at the bases Abdomen is soft obese nontender Examination of lower extremities shows edema 2+ bilaterally [employer] exam grossly intact - Labs CBC & Chem 7: 07/04/24 06:00 07/04/24 06:00 Labs: Abnormal Lab Results - Last 24 Hours (Table) 07/04/24 07/04/24 Range/Units 06:00 06:00 RBC 3.45 L (4.30-5.90) m/uL Hgb 11.9 L (13.0-17.5) gm/dL Hct 37.1 L (39.0-53.0) % MCV 107.5 H (80.0-100.0) fL RDW 17.9 H (11.5-15.5) % Macrocytosis Marked A Sodium 133 L (137-145) mmol/L BUN 95 H (9-20) mg/dL Creatinine 3.77 H (0.66-1.25) mg/dL Glucose 100 H (74-99) mg/dL Total Bilirubin 4.2 H (0.2-1.3) mg/dL Alkaline Phosphatase 174 H (38-126) U/L Total Protein 6.2 L (6.3-8.2) g/dL Albumin 3.0 L (3.5-5.0) g/dL Assessment and Plan Assessment: 1. Acute kidney injury secondary to ATN secondary to hypotension and cardiorenal syndrome. Creatinine at 3.7 today. No hydronephrosis noted on ultrasound. Trace protein on UA. discussed possibly starting renal replacement therapy if renal function continues to worsen. 2. 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 Creatinine 1.5 in March 2024. 3. Acute on chronic diastolic CHF and moderate mitral consultation, severe tricuspid regurgitation and pulmonary hypertension. 4. Volume overload. Maintained on Lasix drip. 5. Right lower extremity cellulitis and Enterococcus UTI on antibiotics. ID following. 6. Hypervolemic hyponatremia. Stable. Plan: continue with Lasix drip at 10 mg an hour Continue with midodrine continue antibiotics Repeat labs in a.m. DC potassium chloride
--- NOTE | 2024-07-04 14:38 | P.PN ---
Subjective Progress Note Date: 07/04/24 Principal diagnosis: Reason for follow-up is left leg cellulitis Patient is a 78-year-old male with a past medical history significant for atrial fibrillation hypertension hyperlipidemia osteoarthritis sleep apnea presenting to the hospital for evaluation of weakness and fall patient has been diagnosed with a left lower extremity cellulitis prompted this consultation. On today's evaluation that is 07/04/2024,the patient remains to be afebrile, patient is on 2 L nasal cannula supplemental oxygen and denies any shortness of breath no chest pain or cough.Patient denies having any nausea or vomiting, no abdominal pain and no diarrhea has been reported, the patient is currently on low-dose pressor support as well as Lasix drip. The patient white count is 8.4, creatinine 3.77 blood culture has been negative Objective - Vital Signs Vital signs: Vital Signs Temp 98.2 F 07/04/24 12:00 Pulse 91 07/04/24 12:30 Resp 9 L 07/04/24 12:30 BP 89/60 07/04/24 12:30 Pulse Ox 98 07/04/24 12:30 FiO2 21 07/04/24 04:16 Intake & Output 07/03/24 07/04/24 07/04/24 18:59 06:59 18:59 Intake Total 2079.971 5410.018 400.981 Output Total 555 800 195 Balance 483.324 399.018 205.981 Weight 187.1 kg 188.105 kg Intake: IV 30 190 50 Invasive Line 4 30 30 20 KVO 0.9 NS 160 30 Intake, IV Titration 148.324 809.018 350.981 Amount Ampicillin-Sulbactam 3 gm 100 In Sodium Chloride 0.9% 100 ml @ 200 mls/hr IVPB Q12H [facility] Rx#:[id number] Furosemide 100 mg In 13.667 80 82.833 Sodium Chloride 0.9% 90 ml @ 5 MG/HR 5 mls/hr IV .Q20H [facility] Rx#:[id number] Norepinephrine 4 mg In 134.657 629.018 268.148 Sodium Chloride 0.9% 250 ml @ 0.03 MCG/KG/MIN 17. 488 mls/hr IV .[id number] [facility] Rx#:[id number] Oral 860 200 Output: Urine 555 800 195 Other: Voiding Method Indwelling Catheter Indwelling Catheter Indwelling Catheter - Exam GENERAL DESCRIPTION: An elderly male lying in bed in no distress RESPIRATORY SYSTEM: Unlabored breathing , decreased breath sounds at bases HEART: S1 S2 regular rate and rhythm , ABDOMEN: Soft , no tenderness EXTREMITIES: Left leg swelling redness slightly decreased no open wound or any drainage - Labs CBC & Chem 7: 07/04/24 06:00 07/04/24 06:00 Labs: Abnormal Lab Results - Last 24 Hours (Table) 07/04/24 07/04/24 Range/Units 06:00 06:00 RBC 3.45 L (4.30-5.90) m/uL Hgb 11.9 L (13.0-17.5) gm/dL Hct 37.1 L (39.0-53.0) % MCV 107.5 H (80.0-100.0) fL RDW 17.9 H (11.5-15.5) % Macrocytosis Marked A Sodium 133 L (137-145) mmol/L BUN 95 H (9-20) mg/dL Creatinine 3.77 H (0.66-1.25) mg/dL Glucose 100 H (74-99) mg/dL Total Bilirubin 4.2 H (0.2-1.3) mg/dL Alkaline Phosphatase 174 H (38-126) U/L Total Protein 6.2 L (6.3-8.2) g/dL Albumin 3.0 L (3.5-5.0) g/dL Assessment and Plan (1) Left leg cellulitis Current Visit: Yes Status: Acute Code(s): L03.116 - CELLULITIS OF LEFT LOWER LIMB SNOMED Code(s): 49623655702723124 Plan: 1patient presented to hospital with generalized weakness and falls in this patient who did have chronic swelling to the lower extremity now with worsening swelling redness to the left leg concerning for cellulitis likely streptococcal disease with diffuse swelling and redness no evidence of any purulence 2-patient is afebrile white count is normal lower extremity swelling persist redness slightly decreased 3patient to continue with Unasyn while inpatient and monitor clinical course closely Dictation was produced using [employer] appation software. please excuse any grammatical, word or spelling errors.
--- NOTE | 2024-07-04 15:12 | P.PN ---
Subjective Progress Note Date: 07/04/24 Principal diagnosis: Acute on chronic right-sided congestive heart failure with chronic hypotension This is a 78-year-old male patient with massive fluid overload, ongoing diffic ulty with chronic kidney failure as the patient has developed an acute on top of chronic renal disease with extensive third spacing and anasarca and possibly a component of cardiorenal syndrome. 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 Baseline creatinine is around 1.5 back in March 2024. The patient presented to us with volume overload, acute on top of chronic diastolic heart failure with moderate mitral regurgitation. Patient also was diagnosed having an Enterococcus urinary tract infection currently on IV Unasyn. Initial rate, attempts to diurese this patient with Lasix have failed due to ongoing hypotension. The patient was started on midodrine 10 mg p.o. 4 times daily. Subsequently, I was asked to transfer this patient to the ICU for hemodynamic support and pressor use as the patient was going to be started on Lasix 5 mg infusion in combination with Zaroxolyn 5 mg p.o. daily. Based on that, the patient was transferred to the ICU. Lasix s drip was started and the patient will be started also on norepinephrine for blood pressure support. He is currently awake and alert. Following commands. He is on oxygen at 2 L/min nasal cannula. His chest x-ray showing small bilateral pleural effusion and this is less x-ray that was done on 06/26/2024. Patient was evaluated today on 07/03/24, remains in the ICU, he was seen by Dr. Jp nance on consultation yesterday, he was placed on Lasix drip at 5 mg/h, making about 50 to 75 cc of urine per hour. Blood pressure is marginal he is requiring norepinephrine at 0.06 mcg/kg/min. Patient is not complaining of shortness of breath, he is on 2 L nasal cannula, he seems to be extremely swollen edematous and has anasarca. Nonetheless the patient is feeling better compared to yesterday. And seemsto be responding to the Lasix drip. WBC count is 8.4 hemoglobin 12.2 electrolytes are normal BUN is 92 creatinine 3.53., Relatively unchanged compared to yesterday.Patient's baseline creatinine on 06/26 was 2.19. Patient is receiving Unasyn for what seems to be acute urinary tract infection secondary to Enterococcus. Faecalis. Patient was evaluated today on 07/04/2024, remains in the ICU remains on Lasix drip and dose has been increased to 10 mg/h. Patient is requiring norepinephrine at 0.07 mcg/kg/min he is also on IV fluid at KVO. Antibiotics cooley he is on Unasyn for his UTI, and is also on Eliquis. Patient tells me that he is feeling better, breathing easier, and he continues to respond to Lasix but urine output did not improve much by increasing the dose of Lasix., WBC is 8.4 hemoglobin 11.9 basic metabolic profile is normal bicarb is 27 BUN is 95 creatinine 3.77 Gradually rising. His renal status is being addressed and followed by nephrology chest x-ray showed evidence of cardiomegaly and pulmonary vascular congestion. Patient remains on 2 L nasal cannula, and he is O2 saturation is 97%. Blood pressure is marginal, his mean arterial pressure is 6 8, patient is requiring norepinephrine Objective - Vital Signs Vital signs: Vital Signs Temp 98.2 F 07/04/24 12:00 Pulse 75 07/04/24 14:00 Resp 24 07/04/24 14:00 BP 84/61 07/04/24 14:00 Pulse Ox 97 07/04/24 14:00 FiO2 21 07/04/24 04:16 Intake & Output 07/03/24 07/04/24 07/04/24 18:59 06:59 18:59 Intake Total 3722.494 3325.018 440.981 Output Total 555 800 395 Balance 483.324 399.018 45.981 Weight 187.1 kg 188.105 kg Intake: IV 30 190 90 Invasive Line 4 30 30 20 KVO 0.9 NS 160 70 Intake, IV Titration 148.324 809.018 350.981 Amount Ampicillin-Sulbactam 3 gm 100 In Sodium Chloride 0.9% 100 ml @ 200 mls/hr IVPB Q12H [facility] Rx#:[id number] Furosemide 100 mg In 13.667 80 82.833 Sodium Chloride 0.9% 90 ml @ 10 MG/HR 10 mls/hr IV .Q10H [facility] Rx#: [id number] Norepinephrine 4 mg In 134.657 629.018 268.148 Sodium Chloride 0.9% 250 ml @ 0.03 MCG/KG/MIN 17. 488 mls/hr IV .[id number] [facility] Rx#:[id number] Oral 860 200 Output: Urine 555 800 395 Other: Voiding Method Indwelling Catheter Indwelling Catheter Indwelling Catheter - Exam General: Revealed a 78-year-old white male morbidly obese on 2 L nasal cannula, not in distress. Head exam is unremarkable. No scleral icterus or corneal arcus noted. Neck positive h jugular venous distension, thyromegaly, or carotid bruits. Carotid upstrokes are brisk bilaterally. Lungs: Diminished breath sound bilaterally no rhonchi no wheezes Cardiac: Distant S1-S2, no S3 gallop, no murmur. Abdominal: Morbidly obese soft nontender no megaly positive abdominal wall edema Extremities 2+ bipedal edema femoral and pedal pulses are normal. Neurologically, alert oriented x 3 no gross focal deficits Psychiatric: Normal mood affect and no mental status examination. Skin: No rashes. - Labs CBC & Chem 7: 07/04/24 06:00 07/04/24 06:00 Labs: Abnormal Lab Results - Last 24 Hours (Table) 07/04/24 07/04/24 Range/Units 06:00 06:00 RBC 3.45 L (4.30-5.90) m/uL Hgb 11.9 L (13.0-17.5) gm/dL Hct 37.1 L (39.0-53.0) % MCV 107.5 H (80.0-100.0) fL RDW 17.9 H (11.5-15.5) % Macrocytosis Marked A Sodium 133 L (137-145) mmol/L BUN 95 H (9-20) mg/dL Creatinine 3.77 H (0.66-1.25) mg/dL Glucose 100 H (74-99) mg/dL Total Bilirubin 4.2 H (0.2-1.3) mg/dL Alkaline Phosphatase 174 H (38-126) U/L Total Protein 6.2 L (6.3-8.2) g/dL Albumin 3.0 L (3.5-5.0) g/dL Assessment and Plan Assessment: Impression: Acute on chronic right-sided congestive heart failure with hypotension Acute on chronic stage IIIb kidney disease with massive volume overload Hyperlipidemia Chronic atrial fibrillation, maintained on anticoagulation with Eliquis Enterococcus urinary tract infection currently on IV Unasyn. Severe pulmonary hypertension Morbid obesity Gout History of obstructive sleep apnea, not tolerant to CPAP therapy Previous history of WPW and SVT Osteoarthritis Previous history of DVT of lower extremities Glucoma Plan Continue oxygen and titrate accordingly continue diuretics including Lasix drip 10 mg/h and Zaroxolyn Continue hemodynamic support, patient is requiring 0.07 mcg/kg/min of norepinephrine Continue midodrine Continue anticoagulation with Eliquis Prognosis is guarded Continue to monitor closely his I's and O's and fluid status Continue to monitor daily labs We will continue to follow Time with Patient: Less than 30
--- NOTE | 2024-07-04 16:08 | P.PN ---
Subjective HISTORY OF PRESENTING ILLNESS This is a 78-year-old patient of Dr. Deleon with past medical history of morbid obesity, permanent atrial fibrillation on Coumadin, hypertension, dyslipidemia, history of DVT, dilated thoracic aorta and valvular heart disease, pulmonary hypertension. We have been asked to evaluate the patient for heart failure. Patient gives history that he had a fall at home. He states his knee gave out on him. He complains of shortness of breath. He feels poorly in general. He is not very active at home. He denies having any fever. No history of smoking. No palpitations. Edema which she states is at his baseline. No blood in his stool or urine. No history of stroke or seizure. 07/01/2024 Was seen and examined resting comfortably in bed. Blood pressure is improved but remains on the low side. He is being followed by nephrology who has started a Lasix drip at 10 mL/h. They have increased metolazone to 5 mg p.o. daily and discontinued Farxiga due to current infection. Overall patient continues to complain of shortness of breath. Continues to complain of orthopnea but improving. Continues to complain of significant lower extremity edema labs this morning showed a creatinine of 2.92. INR 2.0. 07/02/2024 The patient was seen and examined resting comfortably in bed. He is overall feeling his breathing is a bit better. Continues to have significant edema. Continues to be followed by nephrology with adjustments made to his diuretics as well as the addition of albumin. Renal function is worse with a creatinine of 3.54. Blood pressure remains low. 07/03 Patient seen and examined. Patient remains on metoprolol 100 twice a day with borderline blood pressures and patient has been on norepinephrine as well as a Lasix drip at 5 and Zaroxolyn. Urine output approximately 50 mL/h. Denies a chest pain or pressure. Still significant large from edema. Creatinine relatively stable at 3.5. 07/04 patient seen and examined. Patient's echo reviewed and does have severe right ventricular dilation, significantly increased right ventricular pressures with some right ventricular hypokinesis and atypical septal motion which appears consistent with RV overload. There is additional mild pericardial effusion however no obvious Cannot physiology. Patient continues on the IV Lasix drip at 10 with addition of Zaroxolyn with marginal urine outputs and not much negative urine output. Denies any chest pain or pressure. Still remains on metoprolol. Blood pressures borderline and has been on low-dose norepinephrine. PHYSICAL EXAMINATION Vital signs reviewed. CONSTITUTIONAL: No apparent distress. HEENT: Head is normocephalic. Pupils are equal, round. Sclerae anicteric. Mucous membranes of the mouth are moist. No JVD. No carotid bruit. CHEST EXAMINATION: Lungs are clear to auscultation. No chest wall tenderness is noted on palpation or with deep breathing. HEART EXAMINATION: Regular rate and rhythm. S1, S2 heard. No murmurs, gallops or rub. ABDOMEN: Soft, nontender. Positive bowel sounds. EXTREMITIES: 2+ peripheral pulses, 2+ lower extremity edema and no calf tenderness. NEUROLOGIC EXAMINATION: Patient is awake, alert and oriented x3. ASSESSMENT Generalized weakness and fall Permanent atrial fibrillation on Coumadin and will transition to Eliquis however may consider RHC and hold for now Acute on chronic diastolic heart failure, mainly right sided Supratherapeutic INR Hypertension Dyslipidemia History of DVT Dilated thoracic aorta Valvular heart disease with moderate MR, moderate to severe pulmonary hypertension small pericardial effusion Plan: patient still not significantly improving with diuretics. Attempt to decrease the metoprolol as most of his presentation consistent with cardiorenal syndrome and this may be exacerbating some of this. Consider dobutamine depending on how his heart rates respond with decreasing the Toprol. Additionally add Revatio. Use vasopressors as needed. Prognosis guarded. Objective - Vital Signs Vital signs: Vital Signs Temp 98.2 F 07/04/24 12:00 Pulse 75 07/04/24 14:00 Resp 24 07/04/24 14:00 BP 84/61 07/04/24 14:00 Pulse Ox 97 07/04/24 14:00 FiO2 21 07/04/24 04:16 Intake & Output 07/03/24 07/04/24 07/04/24 18:59 06:59 18:59 Intake Total 5520.453 2874.018 440.981 Output Total 555 800 395 Balance 483.324 399.018 45.981 Weight 187.1 kg 188.105 kg Intake: IV 30 190 90 Invasive Line 4 30 30 20 KVO 0.9 NS 160 70 Intake, IV Titration 148.324 809.018 350.981 Amount Ampicillin-Sulbactam 3 gm 100 In Sodium Chloride 0.9% 100 ml @ 200 mls/hr IVPB Q12H [facility] Rx#:[id number] Furosemide 100 mg In 13.667 80 82.833 Sodium Chloride 0.9% 90 ml @ 10 MG/HR 10 mls/hr IV .Q10H [facility] Rx#: [id number] Norepinephrine 4 mg In 134.657 629.018 268.148 Sodium Chloride 0.9% 250 ml @ 0.03 MCG/KG/MIN 17. 488 mls/hr IV .[id number] [facility] Rx#:[id number] Oral 860 200 Output: Urine 555 800 395 Other: Voiding Method Indwelling Catheter Indwelling Catheter Indwelling Catheter - Labs CBC & Chem 7: 07/04/24 06:00 07/04/24 06:00 Labs: Abnormal Lab Results - Last 24 Hours (Table) 07/04/24 07/04/24 Range/Units 06:00 06:00 RBC 3.45 L (4.30-5.90) m/uL Hgb 11.9 L (13.0-17.5) gm/dL Hct 37.1 L (39.0-53.0) % MCV 107.5 H (80.0-100.0) fL RDW 17.9 H (11.5-15.5) % Macrocytosis Marked A Sodium 133 L (137-145) mmol/L BUN 95 H (9-20) mg/dL Creatinine 3.77 H (0.66-1.25) mg/dL Glucose 100 H (74-99) mg/dL Total Bilirubin 4.2 H (0.2-1.3) mg/dL Alkaline Phosphatase 174 H (38-126) U/L Total Protein 6.2 L (6.3-8.2) g/dL Albumin 3.0 L (3.5-5.0) g/dL
[2024-07-04] MEDS: SILDENAFIL 20 MG TAB PO SCH (16:25)
[2024-07-04] MEDS: METOPROLOL TARTRATE 50 MG TAB PO SCH (21:15)
[2024-07-05 06:32] LABS: Anisocytosis Slight; HCT 34.5 % (39.0-53.0); HGB 11.1 gm/dL (13.0-17.5); Hypochromasia Slight; MCH 34.7 pg (25.0-35.0); MCHC 32.2 g/dL (31.0-37.0); MCV 107.8 fL (80.0-100.0); Macrocytosis Marked; Mean Platelet Volume 7.8; Platelet Count 170 k/uL (150-450); RDW 17.8 % (11.5-15.5); WBC 7.1 k/uL (3.8-10.6)
[2024-07-05 07:05] LABS: ALT 7 U/L (4-49); AST 56 U/L (17-59); African American GFR (CKD) 16 (>60 ml/min/1.73 sqM); Albumin 2.8 g/dL (3.5-5.0); Alkaline Phosphatase 167 U/L (38-126); Anion Gap 9 mmol/L; Carbon Dioxide 23 mmol/L (22-30); Chloride 102 mmol/L (98-107); Glucose 103 mg/dL (74-99); Non-African American GFR(CKD) 14 (>60 ml/min/1.73 sqM); Potassium 4.8 mmol/L (3.5-5.1); Sodium 134 mmol/L (137-145); Total Bilirubin 3.7 mg/dL (0.2-1.3); Total Protein 5.9 g/dL (6.3-8.2)
[2024-07-05 07:30] LABS: Blood Urea Nitrogen 101 mg/dL (9-20)
--- NOTE | 2024-07-05 08:16 | P.PN ---
Subjective HISTORY OF PRESENTING ILLNESS This is a 78-year-old patient of Dr. Deleon with past medical history of morbid obesity, permanent atrial fibrillation on Coumadin, hypertension, dyslipidemia, history of DVT, dilated thoracic aorta and valvular heart disease, pulmonary hypertension. We have been asked to evaluate the patient for heart failure. Patient gives history that he had a fall at home. He states his knee gave out on him. He complains of shortness of breath. He feels poorly in general. He is not very active at home. He denies having any fever. No history of smoking. No palpitations. Edema which she states is at his baseline. No blood in his stool or urine. No history of stroke or seizure. 07/01/2024 Was seen and examined resting comfortably in bed. Blood pressure is improved but remains on the low side. He is being followed by nephrology who has started a Lasix drip at 10 mL/h. They have increased metolazone to 5 mg p.o. daily and discontinued Farxiga due to current infection. Overall patient continues to complain of shortness of breath. Continues to complain of orthopnea but improving. Continues to complain of significant lower extremity edema labs this morning showed a creatinine of 2.92. INR 2.0. 07/02/2024 The patient was seen and examined resting comfortably in bed. He is overall feeling his breathing is a bit better. Continues to have significant edema. Continues to be followed by nephrology with adjustments made to his diuretics as well as the addition of albumin. Renal function is worse with a creatinine of 3.54. Blood pressure remains low. 07/03 Patient seen and examined. Patient remains on metoprolol 100 twice a day with borderline blood pressures and patient has been on norepinephrine as well as a Lasix drip at 5 and Zaroxolyn. Urine output approximately 50 mL/h. Denies a chest pain or pressure. Still significant large from edema. Creatinine relatively stable at 3.5. 07/04 patient seen and examined. Patient's echo reviewed and does have severe right ventricular dilation, significantly increased right ventricular pressures with some right ventricular hypokinesis and atypical septal motion which appears consistent with RV overload. There is additional mild pericardial effusion however no obvious Cannot physiology. Patient continues on the IV Lasix drip at 10 with addition of Zaroxolyn with marginal urine outputs and not much negative urine output. Denies any chest pain or pressure. Still remains on metoprolol. Blood pressures borderline and has been on low-dose norepinephrine. 07/05 Patient seen and examined. Hemoglobin 11.1, BUN 101, creatinine 3.9. Still having urine output of approximately 50 mL per hour. Metoprolol was decreased and heart rates closer to 100 in attempt to increase cardiac output, decrease negative inotrope. PHYSICAL EXAMINATION Vital signs reviewed. CONSTITUTIONAL: No apparent distress. HEENT: Head is normocephalic. Pupils are equal, round. Sclerae anicteric. Mucous membranes of the mouth are moist. No JVD. No carotid bruit. CHEST EXAMINATION: Lungs are clear to auscultation. No chest wall tenderness is noted on palpation or with deep breathing. HEART EXAMINATION: Regular rate and rhythm. S1, S2 heard. No murmurs, gallops or rub. ABDOMEN: Soft, nontender. Positive bowel sounds. EXTREMITIES: 2+ peripheral pulses, 2+ lower extremity edema and no calf tenderness. NEUROLOGIC EXAMINATION: Patient is awake, alert and oriented x3. ASSESSMENT Generalized weakness and fall Permanent atrial fibrillation on Coumadin and will transition to Eliquis however may consider RHC and hold for now Acute on chronic diastolic heart failure, mainly right sided Supratherapeutic INR Hypertension Dyslipidemia History of DVT Dilated thoracic aorta Valvular heart disease with moderate MR, moderate to severe pulmonary hypertension small pericardial effusion Plan: patient still not significantly improving with diuretics. We attempted to decrease metoprolol with some increase in heart rate which is appropriate given likely cardiorenal syndrome and decreased cardiac output. Does not appear significantly improving. Continue with sildenafil. May need dialysis. Objective - Vital Signs Vital signs: Vital Signs Temp 97.7 F 07/05/24 04:00 Pulse 87 07/05/24 07:00 Resp 17 07/05/24 07:00 BP 102/66 07/05/24 07:00 Pulse Ox 93 L 07/05/24 07:00 FiO2 21 07/05/24 04:13 Intake & Output 07/04/24 07/05/24 07/05/24 18:59 06:59 18:59 Intake Total 169.006 7307.450 250 Output Total 595 675 50 Balance 353.976 612.450 200 Weight 187.016 kg Intake: IV 140 220 10 Ampicillin-Sulbactam 3 gm 100 In Sodium Chloride 0.9% 100 ml @ 200 mls/hr IVPB Q8HR [facility]FI Rx#:[id number] Invasive Line 4 30 KVO 0.9 NS 110 120 10 Intake, IV Titration 808.976 827.450 Amount Furosemide 100 mg In 178.500 98.167 Sodium Chloride 0.9% 90 ml @ 10 MG/HR 10 mls/hr IV .Q10H [facility] Rx#: [id number] Norepinephrine 4 mg In 630.476 729.283 Sodium Chloride 0.9% 250 ml @ 0.03 MCG/KG/MIN 17. 488 mls/hr IV .[id number] SOFI Rx#:[id number] Oral 240 240 Output: Urine 595 675 50 Other: Voiding Method Indwelling Catheter Indwelling Catheter - Labs CBC & Chem 7: 07/05/24 06:12 07/05/24 06:12 Labs: Abnormal Lab Results - Last 24 Hours (Table) 07/05/24 07/05/24 Range/Units 06:12 06:12 RBC 3.20 L (4.30-5.90) m/uL Hgb 11.1 L (13.0-17.5) gm/dL Hct 34.5 L (39.0-53.0) % MCV 107.8 H (80.0-100.0) fL RDW 17.8 H (11.5-15.5) % Macrocytosis Marked A Sodium 134 L (137-145) mmol/L BUN 101 H* (9-20) mg/dL Creatinine 3.94 H (0.66-1.25) mg/dL Glucose 103 H (74-99) mg/dL Total Bilirubin 3.7 H (0.2-1.3) mg/dL Alkaline Phosphatase 167 H (38-126) U/L Total Protein 5.9 L (6.3-8.2) g/dL Albumin 2.8 L (3.5-5.0) g/dL
--- NOTE | 2024-07-05 10:06 | P.PN ---
Subjective Principal diagnosis: Debility with hypotension. The patient is a 78-year-old white male transferred to the ICU related to hypotension after receiving Lasix drip. The patient is resting comfortably. No headache no shortness of breath he is well aware of his overall debility. He and his have been coping staying independent. Still watching for BP. Hypotension. Objective - Vital Signs Vital signs: Vital Signs Temp 97.8 F 07/05/24 08:00 Pulse 95 07/05/24 09:00 Resp 28 H 07/05/24 09:00 BP 87/54 07/05/24 09:00 Pulse Ox 98 07/05/24 09:00 FiO2 21 07/05/24 04:13 Intake & Output 07/04/24 07/05/24 07/05/24 18:59 06:59 18:59 Intake Total 420.575 6284.450 415.284 Output Total 595 675 150 Balance 353.976 612.450 265.284 Weight 187.016 kg Intake: IV 140 220 30 Ampicillin-Sulbactam 3 gm 100 In Sodium Chloride 0.9% 100 ml @ 200 mls/hr IVPB Q8HR SOFI Rx#:[id number] Invasive Line 4 30 KVO 0.9 NS 110 120 30 Intake, IV Titration 808.976 827.450 145.284 Amount Furosemide 100 mg In 178.500 98.167 Sodium Chloride 0.9% 90 ml @ 10 MG/HR 10 mls/hr IV .Q10H SOFI Rx#: [id number] Norepinephrine 4 mg In 630.476 729.283 145.284 Sodium Chloride 0.9% 250 ml @ 0.03 MCG/KG/MIN 17. 488 mls/hr IV .[id number] SOFI Rx#:[id number] Oral 240 240 Output: Urine 595 675 150 Other: Voiding Method Indwelling Catheter Indwelling Catheter - Constitutional Constitutional Comment(s): fatigued General appearance: Present: morbidly obese - EENT Eyes: Absent: abnormal pupil - Neck Neck: Absent: lymphadenopathy - Respiratory Respiratory: bilateral: diminished - Cardiovascular Rhythm: regular Heart sounds: normal: S1, S2 Abnormal Heart Sounds: Absent: S3 Gallop - Gastrointestinal General gastrointestinal: Present: soft. Absent: tenderness - Psychiatric Psychiatric: Present: A&O x's 3, appropriate affect - Labs CBC & Chem 7: 07/05/24 06:12 07/05/24 06:12 Labs: Abnormal Lab Results - Last 24 Hours (Table) 07/05/24 07/05/24 Range/Units 06:12 06:12 RBC 3.20 L (4.30-5.90) m/uL Hgb 11.1 L (13.0-17.5) gm/dL Hct 34.5 L (39.0-53.0) % MCV 107.8 H (80.0-100.0) fL RDW 17.8 H (11.5-15.5) % Macrocytosis Marked A Sodium 134 L (137-145) mmol/L BUN 101 H* (9-20) mg/dL Creatinine 3.94 H (0.66-1.25) mg/dL Glucose 103 H (74-99) mg/dL Total Bilirubin 3.7 H (0.2-1.3) mg/dL Alkaline Phosphatase 167 H (38-126) U/L Total Protein 5.9 L (6.3-8.2) g/dL Albumin 2.8 L (3.5-5.0) g/dL Assessment and Plan (1) Hypotension Current Visit: Yes Status: Acute Code(s): I95.9 - HYPOTENSION, UNSPECIFIED SNOMED Code(s): 90043562 (2) Left leg cellulitis Current Visit: Yes Status: Acute Code(s): L03.116 - CELLULITIS OF LEFT LOWER LIMB SNOMED Code(s): 47783852968917027 (3) Weakness Current Visit: Yes Status: Acute Code(s): R53.1 - WEAKNESS SNOMED Code(s): 81761729 Plan: Continue to follow closely in ICU. Appreciate consultants input. Check CBC and CMP in a.m. Discharge planning. Time with Patient: Less than 30
--- NOTE | 2024-07-05 11:08 | P.PN ---
Subjective Progress Note Date: 07/05/24 Principal diagnosis: Reason for follow-up is left leg cellulitis Patient is a 78-year-old male with a past medical history significant for atrial fibrillation hypertension hyperlipidemia osteoarthritis sleep apnea presenting to the hospital for evaluation of weakness and fall patient has been diagnosed with a left lower extremity cellulitis prompted this consultation. On today's evaluation that is 07/05/2024, the patient continues to be afebrile, the patient is on 4 L nasal current oxygen and breathing comfortably, the Pt denies having any chest pain or cough, the patient denies having any abdominal pain no vomiting or any diarrhea has been reported by the nursing staff patient is on a pressor support and a Lasix drip. Patient white count 7.1 creatinine is up to 3.94 BUN is 101 Objective - Vital Signs Vital signs: Vital Signs Temp 97.8 F 07/05/24 08:00 Pulse 98 07/05/24 10:00 Resp 19 07/05/24 10:00 BP 84/61 07/05/24 10:00 Pulse Ox 96 07/05/24 10:00 FiO2 21 07/05/24 04:13 Intake & Output 07/04/24 07/05/24 07/05/24 18:59 06:59 18:59 Intake Total 007.748 7293.450 425.284 Output Total 595 675 185 Balance 353.976 612.450 240.284 Weight 187.016 kg Intake: IV 140 220 40 Ampicillin-Sulbactam 3 gm 100 In Sodium Chloride 0.9% 100 ml @ 200 mls/hr IVPB Q8HR SOFI Rx#:[id number] Invasive Line 4 30 KVO 0.9 NS 110 120 40 Intake, IV Titration 808.976 827.450 145.284 Amount Furosemide 100 mg In 178.500 98.167 Sodium Chloride 0.9% 90 ml @ 10 MG/HR 10 mls/hr IV .Q10H SOFI Rx#: [id number] Norepinephrine 4 mg In 630.476 729.283 145.284 Sodium Chloride 0.9% 250 ml @ 0.03 MCG/KG/MIN 17. 488 mls/hr IV .[id number] [facility] Rx#:[id number] Oral 240 240 Output: Urine 595 675 185 Other: Voiding Method Indwelling Catheter Indwelling Catheter Indwelling Catheter - Exam GENERAL DESCRIPTION: An elderly male lying in bed in no distress RESPIRATORY SYSTEM: Unlabored breathing , decreased breath sounds at bases HEART: S1 S2 regular rate and rhythm , ABDOMEN: Soft , no tenderness EXTREMITIES: Left leg swelling redness slightly decreased no open wound or any drainage - Labs CBC & Chem 7: 07/05/24 06:12 07/05/24 06:12 Labs: Abnormal Lab Results - Last 24 Hours (Table) 07/05/24 07/05/24 Range/Units 06:12 06:12 RBC 3.20 L (4.30-5.90) m/uL Hgb 11.1 L (13.0-17.5) gm/dL Hct 34.5 L (39.0-53.0) % MCV 107.8 H (80.0-100.0) fL RDW 17.8 H (11.5-15.5) % Macrocytosis Marked A Sodium 134 L (137-145) mmol/L BUN 101 H* (9-20) mg/dL Creatinine 3.94 H (0.66-1.25) mg/dL Glucose 103 H (74-99) mg/dL Total Bilirubin 3.7 H (0.2-1.3) mg/dL Alkaline Phosphatase 167 H (38-126) U/L Total Protein 5.9 L (6.3-8.2) g/dL Albumin 2.8 L (3.5-5.0) g/dL Assessment and Plan (1) Left leg cellulitis Current Visit: Yes Status: Acute Code(s): L03.116 - CELLULITIS OF LEFT LOWER LIMB SNOMED Code(s): 48705048554940787 Plan: 1patient presented to hospital with generalized weakness and falls in this patient who did have chronic swelling to the lower extremity now with worsening swelling redness to the left leg concerning for cellulitis likely streptococcal disease with diffuse swelling and redness no evidence of any purulence 2-patient is afebrile white count is normal lower extremity swelling persist redness has decreased intensity patient is on Unasyn to continue and monitor clinical course closely Dictation was produced using [email or web address] dictation software. please excuse any grammatical, word or spelling errors. Time with Patient: Less than 30
[2024-07-05] MEDS: NOREPINEPHRINE 32 MG in SODIUM CHLORIDE 0.9% 218 ML IV SCH (11:28)
--- NOTE | 2024-07-05 12:05 | XR ---
EXAMINATION TYPE: XR chest 1V portable DATE OF EXAM: 07/05/2024 11:35 AM CLINICAL INDICATION: Male, 78 years old with history of central line placement; [facility] COMPARISON: Chest radiographs from 07/04/2025 TECHNIQUE: XR chest 1V portable Frontal view of the chest. FINDINGS: Lungs/Pleura: Haziness the right lung base possibly representing layering right pleural effusion. The re is no evidence of left pleural effusion, focal consolidation, or pneumothorax. Pulmonary vascularity: Unremarkable. Heart/mediastinum: Cardiomediastinal silhouette is unremarkable. Musculoskeletal: No acute osseous pathology. Other findings: None Lines/Tubes: Left-sided PICC with distal tip at the superior vena cava/brachiocephalic confluence. IMPRESSION: [Appropriate position. Suspected right layering pleural effusion. [facility], , 07/05/2024 12:03 PM
--- NOTE | 2024-07-05 13:36 | OP ---
OPERATIVE REPORT DATE OF SERVICE : PROCEDURE PERFORMED: Placement of the left subclavian triple-lumen catheter. PREOPERATIVE DIAGNOSES: Hypotension. The patient is requiring higher and higher doses of pressors, higher dose of norepinephrine, hence the central line was indicated. POSTOPERATIVE DIAGNOSES: Hypotension. The patient is requiring higher and higher doses of pressors, higher dose of norepinephrine, hence the central line was indicated. ANESTHESIA USED: 2 mL of 1% lidocaine. DESCRIPTION OF PROCEDURE: The patient was placed in a supine position, the area of the left subclavian region was prepared in a sterile fashion. Drapes were applied. Then, the area was locally anesthetized, and using the anterior approach, the left subclavian vein was easily cannulated, and a guidewire was placed. The area around the guidewire was dilated. Then a triple-lumen catheter was inserted over the guidewire, the guidewire was removed. Good blood flow noted in the 3 different ports of the triple-lumen catheter, line was secured using 3.0 silk sutures, no complications. Followup chest x-ray showed adequate placement and no pneumothorax. Line was secured using 3.0 silk sutures. MMODL / IJN: [id number] /
--- NOTE | 2024-07-05 13:49 | P.PN ---
Subjective patient is seen for follow-up for acute kidney injury and chronic kidney disease. Currently maintained on Lasix drip at 10 mg an hour. Patient has an indwelling Monzon catheter which was placed by urology. Urine output decreased today to about 35 to 40 mL/h Blood pressure remains low and patient is maintained on low-dose levo fed. Serum creatinine increased to 3.9 today Objective - Vital Signs Vital signs: Vital Signs Temp 97.8 F 07/05/24 08:00 Pulse 89 07/05/24 11:15 Resp 24 07/05/24 11:15 BP 82/54 07/05/24 11:15 Pulse Ox 97 07/05/24 11:15 FiO2 21 07/05/24 04:13 Intake & Output 07/04/24 07/05/24 07/05/24 18:59 06:59 18:59 Intake Total 689.459 9743.450 609.137 Output Total 595 675 215 Balance 353.976 612.450 394.137 Weight 187.016 kg Intake: IV 140 220 60 Ampicillin-Sulbactam 3 gm 100 In Sodium Chloride 0.9% 100 ml @ 200 mls/hr IVPB Q8HR SOFI Rx#:[id number] Invasive Line 4 30 KVO 0.9 NS 110 120 60 Intake, IV Titration 808.976 827.450 309.137 Amount Furosemide 100 mg In 178.500 98.167 Sodium Chloride 0.9% 90 ml @ 10 MG/HR 10 mls/hr IV .Q10H SOFI Rx#: [id number] Norepinephrine 32 mg In 4.033 Sodium Chloride 0.9% 218 ml @ 0.03 MCG/KG/MIN 2.63 mls/hr IV .Q24H SOFI Rx#: [id number] Norepinephrine 4 mg In 630.476 729.283 305.104 Sodium Chloride 0.9% 250 ml @ 0.03 MCG/KG/MIN 17. 488 mls/hr IV .[id number] SOFI Rx#:[id number] Oral 240 240 Output: Urine 595 675 215 Other: Voiding Method Indwelling Catheter Indwelling Catheter Indwelling Catheter - Exam Patient is awake, comfortable, no acute distress. Examination of the heart S1 and S2 Examination of the lungs decreased breath sounds at the bases Abdomen is soft obese nontender Examination of lower extremities shows edema 2+ bilaterally PROBATION AGENT exam grossly intact - Labs CBC & Chem 7: 07/05/24 06:12 07/05/24 06:12 Labs: Abnormal Lab Results - Last 24 Hours (Table) 07/05/24 07/05/24 Range/Units 06:12 06:12 RBC 3.20 L (4.30-5.90) m/uL Hgb 11.1 L (13.0-17.5) gm/dL Hct 34.5 L (39.0-53.0) % MCV 107.8 H (80.0-100.0) fL RDW 17.8 H (11.5-15.5) % Macrocytosis Marked A Sodium 134 L (137-145) mmol/L BUN 101 H* (9-20) mg/dL Creatinine 3.94 H (0.66-1.25) mg/dL Glucose 103 H (74-99) mg/dL Total Bilirubin 3.7 H (0.2-1.3) mg/dL Alkaline Phosphatase 167 H (38-126) U/L Total Protein 5.9 L (6.3-8.2) g/dL Albumin 2.8 L (3.5-5.0) g/dL Assessment and Plan Assessment: 1. Acute kidney injury secondary to ATN secondary to hypotension and cardi orenal syndrome. Creatinine at 3.9 today. No hydronephrosis noted on ultrasound. Trace protein on UA. Proceed with renal replacement therapy as patient remains with significant volume overload and urine output has decreased today. 2. 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 Creatinine 1.5 in March 2024. 3. Acute on chronic diastolic CHF and moderate mitral consultation, severe tricuspid regurgitation and pulmonary hypertension. 4. Volume overload. Maintained on Lasix drip. 5. Right lower extremity cellulitis and Enterococcus UTI on antibiotics. ID following. 6. Hypervolemic hyponatremia. Stable. Plan: Consult vascular surgery for dialysis catheter placement continue with Lasix drip at 10 mg an hour Continue with midodrine continue antibiotics Repeat labs in a.m.
--- NOTE | 2024-07-05 13:52 | OP ---
OPERATIVE REPORT DATE OF SERVICE : PROCEDURE PERFORMED: Placement of a left radial arterial line. PREOPERATIVE DIAGNOSIS: Hypotension and the patient requiring multiple pressors. POSTOPERATIVE DIAGNOSIS: Hypotension and the patient requiring multiple pressors. ANESTHESIA USED: None deployed. DESCRIPTION OF PROCEDURE: The patient was placed in the supine position, the left wrist was prepared in a sterile fashion. Drapes were applied. Then, the left radial artery was palpated, cannulated, guidewire was placed, a Cook's catheter was inserted over the guidewire, and the guidewire was removed. Good blood flow, good waveform noted, no complications, line was secured using 3.0 silk sutures. MMODL / IJN: [id number] /
[2024-07-05] MEDS: HEPARIN SODIUM 1,000 UN/ML (10ML VL) MISCELLANE ONE (15:31)
--- NOTE | 2024-07-05 16:18 | P.PN ---
Subjective Progress Note Date: 07/05/24 Principal diagnosis: Acute on chronic right-sided congestive heart failure with chronic hypotension This is a 78-year-old male patient with massive fluid overload, ongoing diffic ulty with chronic kidney failure as the patient has developed an acute on top of chronic renal disease with extensive third spacing and anasarca and possibly a component of cardiorenal syndrome. 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 Baseline creatinine is around 1.5 back in March 2024. The patient presented to us with volume overload, acute on top of chronic diastolic heart failure with moderate mitral regurgitation. Patient also was diagnosed having an Enterococcus urinary tract infection currently on IV Unasyn. Initial rate, attempts to diurese this patient with Lasix have failed due to ongoing hypotension. The patient was started on midodrine 10 mg p.o. 4 times daily. Subsequently, I was asked to transfer this patient to the ICU for hemodynamic support and pressor use as the patient was going to be started on Lasix 5 mg infusion in combination with Zaroxolyn 5 mg p.o. daily. Based on that, the patient was transferred to the ICU. Lasix s drip was started and the patient will be started also on norepinephrine for blood pressure support. He is currently awake and alert. Following commands. He is on oxygen at 2 L/min nasal cannula. His chest x-ray showing small bilateral pleural effusion and this is less x-ray that was done on 06/26/2024. Patient was evaluated today on 07/03/24, remains in the ICU, he was seen by Dr. Jp nance on consultation yesterday, he was placed on Lasix drip at 5 mg/h, making about 50 to 75 cc of urine per hour. Blood pressure is marginal he is requiring norepinephrine at 0.06 mcg/kg/min. Patient is not complaining of shortness of breath, he is on 2 L nasal cannula, he seems to be extremely swollen edematous and has anasarca. Nonetheless the patient is feeling better compared to yesterday. And seemsto be responding to the Lasix drip. WBC count is 8.4 hemoglobin 12.2 electrolytes are normal BUN is 92 creatinine 3.53., Relatively unchanged compared to yesterday.Patient's baseline creatinine on 06/26 was 2.19. Patient is receiving Unasyn for what seems to be acute urinary tract infection secondary to Enterococcus. Faecalis. Patient was evaluated today on 07/04/2024, remains in the ICU remains on Lasix drip and dose has been increased to 10 mg/h. Patient is requiring norepinephrine at 0.07 mcg/kg/min he is also on IV fluid at KVO. Antibiotics cooley he is on Unasyn for his UTI, and is also on Eliquis. Patient tells me that he is feeling better, breathing easier, and he continues to respond to Lasix but urine output did not improve much by increasing the dose of Lasix., WBC is 8.4 hemoglobin 11.9 basic metabolic profile is normal bicarb is 27 BUN is 95 creatinine 3.77 Gradually rising. His renal status is being addressed and followed by nephrology chest x-ray showed evidence of cardiomegaly and pulmonary vascular congestion. Patient remains on 2 L nasal cannula, and he is O2 saturation is 97%. Blood pressure is marginal, his mean arterial pressure is 6 8, patient is requiring norepinephrine Patient today on 07/05/2024, patient is not doing too great today. Patient is getting worse, he is developing worsening hypotension and requiring now higher doses of norepinephrine and higher doses of vasopressin. Patient required lines including central line and arterial line, and these were done today. Urine output remains about 35 to 40 cc/h, in spite of Lasix at 10 mg/h. His renal functioning is getting worse creatinine is up to 3.9 today. Again the patient is requiring norepinephrine and we have added vasopressin, patient seems to be developing acute kidney injury with ATN and hypotension as well as cardiorenal syndrome. Nephrology is considering to proceed with renal replacement therapy since the patient continues to remain volume overloaded. And urine output is not that great. His creatinine baseline in March was 1.5. Looking at his e chocardiogram, patient has chronic diastolic congestive heart failure with moderate mitral regurgitation, and severe pulmonary hypertension. Patient is also receiving antibiotics for his right lower extremity cellulitis, in addition he has Enterococcus urinary tract infection addressed by infectious disease on the case.WBC count is 7.1 hemoglobin is 11.1 basic metabolic profile is normal bicarb is 23 BUN is 101 creatinine 3.94. Chest x-ray is showing worsening pleural effusion and pulmonary edema Objective - Vital Signs Vital signs: Vital Signs Temp 97.8 F 07/05/24 12:00 Pulse 93 07/05/24 14:00 Resp 19 10/02/24 14:00 BP 82/54 07/05/24 11:15 Pulse Ox 96 07/05/24 14:00 FiO2 21 07/05/24 04:13 Intake & Output 07/04/24 07/05/24 07/05/24 18:59 06:59 18:59 Intake Total 040.813 1819.450 725.970 Output Total 595 675 365 Balance 353.976 612.450 360.970 Weight 187.016 kg Intake: IV 140 220 80 Ampicillin-Sulbactam 3 gm 100 In Sodium Chloride 0.9% 100 ml @ 200 mls/hr IVPB Q8HR [facility] Rx#:[id number] Invasive Line 4 30 KVO 0.9 NS 110 120 80 Intake, IV Titration 808.976 827.450 405.970 Amount Furosemide 100 mg In 178.500 98.167 96.833 Sodium Chloride 0.9% 90 ml @ 10 MG/HR 10 mls/hr IV .Q10H [facility] Rx#: [id number] Norepinephrine 32 mg In 4.033 Sodium Chloride 0.9% 218 ml @ 0.03 MCG/KG/MIN 2.63 mls/hr IV .Q24H [facility] Rx#: [id number] Norepinephrine 4 mg In 630.476 729.283 305.104 Sodium Chloride 0.9% 250 ml @ 0.03 MCG/KG/MIN 17. 488 mls/hr IV .[id number] [facility] Rx#:[id number] Oral 240 240 Output: Urine 595 675 365 Other: Voiding Method Indwelling Catheter Indwelling Catheter Indwelling Catheter ABP, PAP, CO, CI - Last Documented Arterial Blood Pressure 97/45 - Exam General: Revealed a 78-year-old white male morbidly obese on 2 L nasal cannula Head exam is unremarkable. No scleral icterus or corneal arcus noted. Neck positive jugular venous distension, thyromegaly, or carotid bruits. Carotid upstrokes are brisk bilaterally. Lungs: Diminished breath sound bilaterally no rhonchi no wheezes Cardiac: Distant S1-S2, no S3 gallop, no murmur. Abdominal: Morbidly obese soft nontender no megaly positive abdominal wall edema Extremities 2+ bipedal edema femoral and pedal pulses are normal. Neurologically, alert oriented x 3 no gross focal deficits Psychiatric: Normal mood affect and no mental status examination. Skin: Decreased left leg swelling, redness, no open wounds or any drainage - Labs CBC & Chem 7: 07/05/24 06:12 07/05/24 06:12 Labs: Abnormal Lab Results - Last 24 Hours (Table) 07/05/24 07/05/24 Range/Units 06:12 06:12 RBC 3.20 L (4.30-5.90) m/uL Hgb 11.1 L (13.0-17.5) gm/dL Hct 34.5 L (39.0-53.0) % MCV 107.8 H (80.0-100.0) fL RDW 17.8 H (11.5-15.5) % Macrocytosis Marked A Sodium 134 L (137-145) mmol/L BUN 101 H* (9-20) mg/dL Creatinine 3.94 H (0.66-1.25) mg/dL Glucose 103 H (74-99) mg/dL Total Bilirubin 3.7 H (0.2-1.3) mg/dL Alkaline Phosphatase 167 H (38-126) U/L Total Protein 5.9 L (6.3-8.2) g/dL Albumin 2.8 L (3.5-5.0) g/dL Assessment and Plan Assessment: Impression: Acute on chronic right-sided congestive heart failure with hypotension Acute on chronic stage IIIb kidney disease with massive volume overload Hyperlipidemia Chronic atrial fibrillation, maintained on anticoagulation with Eliquis Enterococcus urinary tract infection currently on IV Unasyn. Severe pulmonary hypertension Morbid obesity Gout History of obstructive sleep apnea, not tolerant to CPAP therapy Previous history of WPW and SVT Osteoarthritis Previous history of DVT of lower extremities Glucoma Plan Considering the worsening clinical status and considering the patient is now requiring hemodynamic support/pressors, I went ahead and placed lines in this patient including a central line and arterial line. Patient will be placed on norepinephrine at a higher dose, and will add vasopressin for low blood pressure. Nephrology is addressing the issue of hemodialysis/renal replacement will likely start sometime later today or tomorrow. Continue oxygen and titrate accordingly Lasix/diuretics to be addressed by nephrology on the case may not even require diuretics if the patient is started on hemodialysis. Continue hemodynamic support, Continue midodrine Continue anticoagulation with Eliquis Clinical condition is getting worse and the patient is developing worsening renal status and hemodynamic status Patient is critically ill Critical care time is over 30 minutes not including time spent on procedures Continue to monitor closely his I's and O's and fluid status Continue to monitor daily labs We will continue to follow Time with Patient: Greater than 30
--- NOTE | 2024-07-05 22:04 | OP ---
OPERATIVE REPORT DATE OF SERVICE : PREOPERATIVE DIAGNOSIS: Acute chronic renal failure. POSTOPERATIVE DIAGNOSIS: Acute chronic renal failure. PROCEDURE PERFORMED: Ultrasound-guided 20 cm dialysis catheter placed in right femoral approach. DESCRIPTION OF PROCEDURE: The patient was seen in the intensive care unit. Right groin was prepped and drapes applied in a sterile manner. 1% lidocaine was infiltrated in the groin area. Ultrasound-guided micropuncture introduced into the right femoral vein. Micropuncture guidewire was passed and 4-Belgian dilator was advanced on top of the guidewire. Then, we passed a regular guidewire without any resistance. The dilator was advanced on the top of the guidewire. Then, we placed 20 cm dialysis catheter on the top of the guidewire. The guidewire was removed, flushed with heparin saline and hep-locked, secured with 3-0 nylon. Dressing applied. The patient tolerated the procedure well. MMODL / IJN: [id number] /
[2024-07-06 05:42] LABS: Anisocytosis Slight; Basophils # (A) 0.1 k/uL (0-0.2); Basophils % (A) 1 %; Eosinophils # (A) 0.2 k/uL (0-0.7); Eosinophils % (A) 2 %; HCT 35.7 % (39.0-53.0); HGB 11.8 gm/dL (13.0-17.5); Lymphocytes # (A) 0.7 k/uL (1.0-4.8); Lymphocytes % (A) 9 %; MCH 34.6 pg (25.0-35.0); MCHC 33.2 g/dL (31.0-37.0); MCV 104.2 fL (80.0-100.0); Macrocytosis Marked; Mean Platelet Volume 9.3; Monocytes # (A) 0.7 k/uL (0-1.0); Monocytes % (A) 9 %; Neutrophils # (A) 6.2 k/uL (1.3-7.7); Neutrophils % (A) 78 %; Platelet Count 198 k/uL (150-450); RBC 3.42 m/uL (4.30-5.90); RDW 18.6 % (11.5-15.5); WBC 7.9 k/uL (3.8-10.6)
[2024-07-06 06:21] LABS: African American GFR (CKD) 14 (>60 ml/min/1.73 sqM); Anion Gap 10 mmol/L; Calcium 8.8 mg/dL (8.4-10.2); Carbon Dioxide 26 mmol/L (22-30); Chloride 99 mmol/L (98-107); Glucose 114 mg/dL (74-99); Non-African American GFR(CKD) 12 (>60 ml/min/1.73 sqM); Potassium 4.6 mmol/L (3.5-5.1); Sodium 135 mmol/L (137-145)
[2024-07-06 06:33] LABS: Blood Urea Nitrogen 102 mg/dL (9-20)
[2024-07-06 06:44] LABS: RBC Fragments Present
[2024-07-06 06:45] LABS: Tear Drop Cells Present
--- NOTE | 2024-07-06 08:27 | XR ---
EXAMINATION TYPE: XR chest 1V portable DATE OF EXAM: 07/06/2024 5:37 AM CLINICAL INDICATION: Male, 78 years old with history of fluid overload; [facility] COMPARISON: Chest radiographs from 07/05/2024 TECHNIQUE: XR chest 1V portable Frontal view of the chest. FINDINGS: Lungs/Pleura: No evidence of focal consolidation or pneumothorax. Blunting of the costophrenic angles is present. Pulmonary vascularity: Pulmonary vascular congestion. Heart/mediastinum: Cardiomediastinal silhouette is enlarged. Musculoskeletal: No acute osseous pathology. Other findings: None Lines/Tubes: Left central venous catheter with distal tip at the cavoatrial junction. IMPRESSION: Cardiomegaly, pulmonary vascular congestion and bilateral pleural effusions. Correlate with BNP for c ongestive heart failure. [facility], , 07/06/2024 8:25 AM
--- NOTE | 2024-07-06 10:47 | P.PN ---
Subjective Patient is seen for follow-up for acute kidney injury and chronic kidney disease. Currently maintained on Lasix drip at 10 mg an hour. Patient has an indwelling Monzon catheter which was placed by urology. Urine output at 80-125mL/h Blood pressure remains low and patient is maintained on low-dose levo fed. Serum creatinine increased to4.3 today. Hemodialysis scheduled for today due to persistent volume overload and worsening renal function. Objective - Vital Signs Vital signs: Vital Signs Temp 97.7 F 07/06/24 04:00 Pulse 90 07/06/24 07:15 Resp 19 07/06/24 07:15 BP 82/54 07/05/24 11:15 Pulse Ox 95 07/06/24 07:15 FiO2 21 07/06/24 04:00 Intake & Output 07/05/24 07/06/24 07/06/24 18:59 06:59 18:59 Intake Total 1215.589 732.337 13 Output Total 745 1150 90 Balance 470.589 -417.663 -77 Weight 183.02 kg Intake: IV 154 143 13 KVO 0.9 NS 130 110 10 pressure bag 24 33 3 Intake, IV Titration 581.589 349.337 Amount Furosemide 100 mg In 96.833 162.834 Sodium Chloride 0.9% 90 ml @ 10 MG/HR 10 mls/hr IV .Q10H [facility] Rx#: [id number] Norepinephrine 32 mg In 179.652 186.503 Sodium Chloride 0.9% 218 ml @ 0.03 MCG/KG/MIN 2.63 mls/hr IV .Q24H [facility] Rx#: [id number] Norepinephrine 4 mg In 305.104 Sodium Chloride 0.9% 250 ml @ 0.03 MCG/KG/MIN 17. 488 mls/hr IV .[id number] [facility] Rx#:[id number] Oral 480 240 Output: Urine 745 1150 90 Other: Voiding Method Indwelling Catheter Indwelling Catheter ABP, PAP, CO, CI - Last Documented Arterial Blood Pressure 110/50 - Exam Patient is awake, comfortable, no acute distress. Examination of the heart S1 and S2 Examination of the lungs decreased breath sounds at the bases Abdomen is soft obese nontender Examination of lower extremities shows edema 2+ bilaterally [employer] exam grossly intact - Labs CBC & Chem 7: 07/06/24 05:05 07/06/24 05:05 Labs: Abnormal Lab Results - Last 24 Hours (Table) 07/06/24 07/06/24 Range/Units 05:05 05:05 RBC 3.42 L (4.30-5.90) m/uL Hgb 11.8 L (13.0-17.5) gm/dL Hct 35.7 L (39.0-53.0) % MCV 104.2 H (80.0-100.0) fL RDW 18.6 H (11.5-15.5) % Lymphocytes # 0.7 L (1.0-4.8) k/uL Macrocytosis Marked A Sodium 135 L (137-145) mmol/L BUN 102 H* (9-20) mg/dL Creatinine 4.31 H (0.66-1.25) mg/dL Glucose 114 H (74-99) mg/dL Assessment and Plan Assessment: 1. Acute kidney injury secondary to ATN secondary to hypotension and cardiorenal syndrome. Creatinine at 4.3 today. No hydronephrosis noted on ultrasound. Trace protein on UA. Proceed with renal replacement therapy as patient remains with significant volume overload and renal function continues to worsen . 2. 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 Creatinine 1.5 in March 2024. 3. Acute on chronic diastolic CHF and moderate mitral consultation, severe tricuspid regurgitation and pulmonary hypertension. 4. Volume overload. Maintained on Lasix drip. 5. Right lower extremity cellulitis and Enterococcus UTI on antibiotics. ID following. 6. Hypervolemic hyponatremia. Stable. Plan: Consult vascular surgery for dialysis catheter placement continue with Lasix drip at 10 mg an hour Continue with midodrine continue antibiotics Repeat labs in a.m.
--- NOTE | 2024-07-06 14:26 | P.PN ---
Subjective Progress Note Date: 07/06/24 Principal diagnosis: Reason for follow-up is left leg cellulitis Patient is a 78-year-old male with a past medical history significant for atrial fibrillation hypertension hyperlipidemia osteoarthritis sleep apnea presenting to the hospital for evaluation of weakness and fall patient has been diagnosed with a left lower extremity cellulitis prompted this consultation. On today's evaluation that is 07/06/2024, Patient is afebrile patient is currently on 2 L nasal cannula oxygen and denies having any shortness of breath, the patient denies any chest pain or cough, the patient denies any nausea vomiting did not have any abdominal pain and no diarrhea, denies pain to the lower extremity. Patient white count 7.9, creatinine is up to 4.31 Objective - Vital Signs Vital signs: Vital Signs Temp 98.5 F 07/06/24 08:00 Pulse 100 07/06/24 11:00 Resp 27 H 07/06/24 11:00 BP 82/54 07/06/24 11:00 Pulse Ox 95 07/06/24 11:00 FiO2 21 07/06/24 04:00 Intake & Output 07/05/24 07/06/24 07/06/24 18:59 06:59 18:59 Intake Total 1215.589 732.337 65 Output Total 745 1150 290 Balance 470.589 -417.663 -225 Weight 183.02 kg Intake: IV 154 143 65 KVO 0.9 NS 130 110 50 pressure bag 24 33 15 Intake, IV Titration 581.589 349.337 Amount Furosemide 100 mg In 96.833 162.834 Sodium Chloride 0.9% 90 ml @ 10 MG/HR 10 mls/hr IV .Q10H [facility] Rx#: [id number] Norepinephrine 32 mg In 179.652 186.503 Sodium Chloride 0.9% 218 ml @ 0.03 MCG/KG/MIN 2.63 mls/hr IV .Q24H [facility] Rx#: [id number] Norepinephrine 4 mg In 305.104 Sodium Chloride 0.9% 250 ml @ 0.03 MCG/KG/MIN 17. 488 mls/hr IV .[id number] [facility] Rx#:[id number] Oral 480 240 Output: Urine 745 1150 290 Other: Voiding Method Indwelling Catheter Indwelling Catheter ABP, PAP, CO, CI - Last Documented Arterial Blood Pressure 102/54 - Exam GENERAL DESCRIPTION: An elderly male lying in bed in no distress RESPIRATORY SYSTEM: Unlabored breathing , decreased breath sounds at bases HEART: S1 S2 regular rate and rhythm , ABDOMEN: Soft , no tenderness EXTREMITIES: Left leg swelling redness slightly decreased no open wound or any drainage - Labs CBC & Chem 7: 07/06/24 05:05 07/06/24 05:05 Labs: Abnormal Lab Results - Last 24 Hours (Table) 07/06/24 07/06/24 Range/Units 05:05 05:05 RBC 3.42 L (4.30-5.90) m/uL Hgb 11.8 L (13.0-17.5) gm/dL Hct 35.7 L (39.0-53.0) % MCV 104.2 H (80.0-100.0) fL RDW 18.6 H (11.5-15.5) % Lymphocytes # 0.7 L (1.0-4.8) k/uL Macrocytosis Marked A Sodium 135 L (137-145) mmol/L BUN 102 H* (9-20) mg/dL Creatinine 4.31 H (0.66-1.25) mg/dL Glucose 114 H (74-99) mg/dL Assessment and Plan (1) Left leg cellulitis Current Visit: Yes Status: Acute Code(s): L03.116 - CELLULITIS OF LEFT LOWER LIMB SNOMED Code(s): 83226658270911352 Plan: 1patient presented to hospital with generalized weakness and falls in this patient who did have chronic swelling to the lower extremity now with worsening swelling redness to the left leg concerning for cellulitis likely streptococcal disease with diffuse swelling and redness no evidence of any purulence 2-patient is afebrile white count is normal lower extremity swelling and redness have decreased intensity is currently on Unasyn to continue for another 24 to 48 hours. Dictation was produced using Outlineation software. please excuse any grammatical, word or spelling errors. Time with Patient: Less than 30
--- NOTE | 2024-07-06 16:24 | P.PN ---
Subjective Progress Note Date: 07/06/24 Principal diagnosis: Acute on chronic right-sided congestive heart failure with chronic hypotension This is a 78-year-old male patient with massive fluid overload, ongoing diffic ulty with chronic kidney failure as the patient has developed an acute on top of chronic renal disease with extensive third spacing and anasarca and possibly a component of cardiorenal syndrome. 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 Baseline creatinine is around 1.5 back in March 2024. The patient presented to us with volume overload, acute on top of chronic diastolic heart failure with moderate mitral regurgitation. Patient also was diagnosed having an Enterococcus urinary tract infection currently on IV Unasyn. Initial rate, attempts to diurese this patient with Lasix have failed due to ongoing hypotension. The patient was started on midodrine 10 mg p.o. 4 times daily. Subsequently, I was asked to transfer this patient to the ICU for hemodynamic support and pressor use as the patient was going to be started on Lasix 5 mg infusion in combination with Zaroxolyn 5 mg p.o. daily. Based on that, the patient was transferred to the ICU. Lasix s drip was started and the patient will be started also on norepinephrine for blood pressure support. He is currently awake and alert. Following commands. He is on oxygen at 2 L/min nasal cannula. His chest x-ray showing small bilateral pleural effusion and this is less x-ray that was done on 06/26/2024. Patient was evaluated today on 07/03/24, remains in the ICU, he was seen by Dr. Jp nance on consultation yesterday, he was placed on Lasix drip at 5 mg/h, making about 50 to 75 cc of urine per hour. Blood pressure is marginal he is requiring norepinephrine at 0.06 mcg/kg/min. Patient is not complaining of shortness of breath, he is on 2 L nasal cannula, he seems to be extremely swollen edematous and has anasarca. Nonetheless the patient is feeling better compared to yesterday. And seemsto be responding to the Lasix drip. WBC count is 8.4 hemoglobin 12.2 electrolytes are normal BUN is 92 creatinine 3.53., Relatively unchanged compared to yesterday.Patient's baseline creatinine on 06/26 was 2.19. Patient is receiving Unasyn for what seems to be acute urinary tract infection secondary to Enterococcus. Faecalis. Patient was evaluated today on 07/04/2024, remains in the ICU remains on Lasix drip and dose has been increased to 10 mg/h. Patient is requiring norepinephrine at 0.07 mcg/kg/min he is also on IV fluid at KVO. Antibiotics cooley he is on Unasyn for his UTI, and is also on Eliquis. Patient tells me that he is feeling better, breathing easier, and he continues to respond to Lasix but urine output did not improve much by increasing the dose of Lasix., WBC is 8.4 hemoglobin 11.9 basic metabolic profile is normal bicarb is 27 BUN is 95 creatinine 3.77 Gradually rising. His renal status is being addressed and followed by nephrology chest x-ray showed evidence of cardiomegaly and pulmonary vascular congestion. Patient remains on 2 L nasal cannula, and he is O2 saturation is 97%. Blood pressure is marginal, his mean arterial pressure is 6 8, patient is requiring norepinephrine Patient today on 07/05/2024, patient is not doing too great today. Patient is getting worse, he is developing worsening hypotension and requiring now higher doses of norepinephrine and higher doses of vasopressin. Patient required lines including central line and arterial line, and these were done today. Urine output remains about 35 to 40 cc/h, in spite of Lasix at 10 mg/h. His renal functioning is getting worse creatinine is up to 3.9 today. Again the patient is requiring norepinephrine and we have added vasopressin, patient seems to be developing acute kidney injury with ATN and hypotension as well as cardiorenal syndrome. Nephrology is considering to proceed with renal replacement therapy since the patient continues to remain volume overloaded. And urine output is not that great. His creatinine baseline in March was 1.5. Looking at his e chocardiogram, patient has chronic diastolic congestive heart failure with moderate mitral regurgitation, and severe pulmonary hypertension. Patient is also receiving antibiotics for his right lower extremity cellulitis, in addition he has Enterococcus urinary tract infection addressed by infectious disease on the case.WBC count is 7.1 hemoglobin is 11.1 basic metabolic profile is normal bicarb is 23 BUN is 101 creatinine 3.94. Chest x-ray is showing worsening pleural effusion and pulmonary edema Reevaluate today on 07/06/2024, patient remains in the ICU, still on pressors requiring norepinephrine at 0.24 mcg/kg/min, patient did not require vasopressin yesterday. Still on midodrine. A right femoral dialysis catheter was placed yesterday by vascular surgery. Patient is supposed to be started on hemodialysis today. Clinically today, he seems to be feeling better compared to yesterday.Denies any cough wheezing or shortness of breath, patient feels generally weak. WBC count is 7.9 hemoglobin 11.8 electrolytes are normal BUN is 102 creatinine 4.31 patient remains on Lasix drip at 10 mg/h, and the plan is to hemodialyze today Objective - Vital Signs Vital signs: Vital Signs Temp 986 F H 07/06/24 12:00 Pulse 87 07/06/24 15:00 Resp 17 07/06/24 15:00 BP 82/54 07/06/24 15:00 Pulse Ox 97 07/06/24 15:00 FiO2 21 07/06/24 12:00 Intake & Output 07/05/24 07/06/24 07/06/24 18:59 06:59 18:59 Intake Total 1215.589 732.337 117 Output Total 745 1150 740 Balance 470.589 -417.663 -623 Weight 183.02 kg 183.02 kg Intake: IV 154 143 117 KVO 0.9 NS 130 110 90 pressure bag 24 33 27 Intake, IV Titration 581.589 349.337 Amount Furosemide 100 mg In 96.833 162.834 Sodium Chloride 0.9% 90 ml @ 10 MG/HR 10 mls/hr IV .Q10H [facility] Rx#: [id number] Norepinephrine 32 mg In 179.652 186.503 Sodium Chloride 0.9% 218 ml @ 0.03 MCG/KG/MIN 2.63 mls/hr IV .Q24H [facility] Rx#: [id number] Norepinephrine 4 mg In 305.104 Sodium Chloride 0.9% 250 ml @ 0.03 MCG/KG/MIN 17. 488 mls/hr IV .[id number] [facility] Rx#:[id number] Oral 480 240 Output: Urine 745 1150 740 Other: Voiding Method Indwelling Catheter Indwelling Catheter Indwelling Catheter ABP, PAP, CO, CI - Last Documented Arterial Blood Pressure 100/46 - Exam General: Revealed a 78-year-old white male morbidly obese on 3 L nasal cannula Head exam is unremarkable. No scleral icterus or corneal arcus noted. Neck positive jugular venous distension, thyromegaly, or carotid bruits. Carotid upstrokes are brisk bilaterally. Lungs: Diminished breath sound bilaterally no rhonchi no wheezes Cardiac: Distant S1-S2, no S3 gallop, no murmur. Abdominal: Morbidly obese soft nontender no megaly positive abdominal wall edema Extremities 2+ bipedal edema femoral and pedal pulses are normal. Neurologically, alert oriented x 3 no gross focal deficits Psychiatric: Normal mood affect and no mental status examination. Skin: Decreased left leg swelling, redness, no open wounds or any drainage - Labs CBC & Chem 7: 07/06/24 05:05 07/06/24 05:05 Labs: Abnormal Lab Results - Last 24 Hours (Table) 07/06/24 07/06/24 Range/Units 05:05 05:05 RBC 3.42 L (4.30-5.90) m/uL Hgb 11.8 L (13.0-17.5) gm/dL Hct 35.7 L (39.0-53.0) % MCV 104.2 H (80.0-100.0) fL RDW 18.6 H (11.5-15.5) % Lymphocytes # 0.7 L (1.0-4.8) k/uL Macrocytosis Marked A Sodium 135 L (137-145) mmol/L BUN 102 H* (9-20) mg/dL Creatinine 4.31 H (0.66-1.25) mg/dL Glucose 114 H (74-99) mg/dL Assessment and Plan Assessment: Impression: Acute on chronic right-sided congestive heart failure with hypotension Acute on chronic stage IIIb kidney disease with massive volume overload Hyperlipidemia Chronic atrial fibrillation, maintained on anticoagulation with Eliquis Enterococcus urinary tract infection currently on IV Unasyn. Severe pulmonary hypertension Morbid obesity Gout History of obstructive sleep apnea, not tolerant to CPAP therapy Previous history of WPW and SVT Osteoarthritis Previous history of DVT of lower extremities Glucoma Plan Continue to monitor in the ICU Continue norepinephrine and titrate accordingly/hemodynamic support Nephrology to initiate hemodialysis today Continue oxygen and titrate accordingly Lasix/be continued at 10 mg/h Continue midodrine Continue anticoagulation with Eliquis Clinical condition remains critical but the patient is doing a bit better today compared to yesterday Critical care time is over 30 minutes Continue to monitor closely his I's and O's and fluid status Continue to monitor daily labs We will continue to follow Time with Patient: Greater than 30
--- NOTE | 2024-07-06 16:29 | P.PN ---
Subjective HISTORY OF PRESENTING ILLNESS This is a 78-year-old patient of Dr. Deleon with past medical history of morbid obesity, permanent atrial fibrillation on Coumadin, hypertension, dyslipidemia, history of DVT, dilated thoracic aorta and valvular heart disease, pulmonary hypertension. We have been asked to evaluate the patient for heart failure. Patient gives history that he had a fall at home. He states his knee gave out on him. He complains of shortness of breath. He feels poorly in general. He is not very active at home. He denies having any fever. No history of smoking. No palpitations. Edema which she states is at his baseline. No blood in his stool or urine. No history of stroke or seizure. 07/01/2024 Was seen and examined resting comfortably in bed. Blood pressure is improved but remains on the low side. He is being followed by nephrology who has started a Lasix drip at 10 mL/h. They have increased metolazone to 5 mg p.o. daily and discontinued Farxiga due to current infection. Overall patient continues to complain of shortness of breath. Continues to complain of orthopnea but improving. Continues to complain of significant lower extremity edema labs this morning showed a creatinine of 2.92. INR 2.0. 07/02/2024 The patient was seen and examined resting comfortably in bed. He is overall feeling his breathing is a bit better. Continues to have significant edema. Continues to be followed by nephrology with adjustments made to his diuretics as well as the addition of albumin. Renal function is worse with a creatinine of 3.54. Blood pressure remains low. 07/03 Patient seen and examined. Patient remains on metoprolol 100 twice a day with borderline blood pressures and patient has been on norepinephrine as well as a Lasix drip at 5 and Zaroxolyn. Urine output approximately 50 mL/h. Denies a chest pain or pressure. Still significant large from edema. Creatinine relatively stable at 3.5. 07/04 patient seen and examined. Patient's echo reviewed and does have severe right ventricular dilation, significantly increased right ventricular pressures with some right ventricular hypokinesis and atypical septal motion which appears consistent with RV overload. There is additional mild pericardial effusion however no obvious Cannot physiology. Patient continues on the IV Lasix drip at 10 with addition of Zaroxolyn with marginal urine outputs and not much negative urine output. Denies any chest pain or pressure. Still remains on metoprolol. Blood pressures borderline and has been on low-dose norepinephrine. 07/05 Patient seen and examined. Hemoglobin 11.1, BUN 101, creatinine 3.9. Still having urine output of approximately 50 mL per hour. Metoprolol was decreased and heart rates closer to 100 in attempt to increase cardiac output, decrease negative inotrope. 07/06 patient seen and examined. Patient had dialysis catheter placed and undergoing dialysis for the first time today with 2 L output. Remains on norepinephrine. Denies any chest pain or pressure. PHYSICAL EXAMINATION Vital signs reviewed. CONSTITUTIONAL: No apparent distress. HEENT: Head is normocephalic. Pupils are equal, round. Sclerae anicteric. Mucous membranes of the mouth are moist. No JVD. No carotid bruit. CHEST EXAMINATION: Lungs are clear to auscultation. No chest wall tenderness is noted on palpation or with deep breathing. HEART EXAMINATION: Regular rate and rhythm. S1, S2 heard. No murmurs, gallops or rub. ABDOMEN: Soft, nontender. Positive bowel sounds. EXTREMITIES: 2+ peripheral pulses, 2+ lower extremity edema and no calf tenderness. NEUROLOGIC EXAMINATION: Patient is awake, alert and oriented x3. ASSESSMENT Generalized weakness and fall Permanent atrial fibrillation on Coumadin and will transition to Eliquis however may consider RHC and hold for now Acute on chronic diastolic heart failure, mainly right sided Supratherapeutic INR Hypertension Dyslipidemia History of DVT Dilated thoracic aorta Valvular heart disease with moderate MR, moderate to severe pulmonary hypertension small pericardial effusion Plan: Patient still not with much urine output and is currently undergoing dialysis. Continue to monitor response of dialysis with patient appearing significantly volume overloaded. Hopefully blood pressure improved with dialysis. Prognosis guarded. Objective - Vital Signs Vital signs: Vital Signs Temp 97.9 F 07/06/24 16:16 Pulse 99 07/06/24 16:16 Resp 16 07/06/24 16:16 BP 108/51 07/06/24 16:16 Pulse Ox 97 07/06/24 15:00 FiO2 21 07/06/24 12:00 Intake & Output 07/05/24 07/06/24 07/06/24 18:59 06:59 18:59 Intake Total 1215.589 732.337 517 Output Total 745 1150 5140 Balance 470.589 -417.663 4603 Weight 183.02 kg 183.02 kg Intake: IV 154 143 117 KVO 0.9 NS 130 110 90 pressure bag 24 33 27 Intake, IV Titration 581.589 349.337 Amount Furosemide 100 mg In 96.833 162.834 Sodium Chloride 0.9% 90 ml @ 10 MG/HR 10 mls/hr IV .Q10H [facility] Rx#: [id number] Norepinephrine 32 mg In 179.652 186.503 Sodium Chloride 0.9% 218 ml @ 0.03 MCG/KG/MIN 2.63 mls/hr IV .Q24H [facility] Rx#: [id number] Norepinephrine 4 mg In 305.104 Sodium Chloride 0.9% 250 ml @ 0.03 MCG/KG/MIN 17. 488 mls/hr IV .[id number] [facility] Rx#:[id number] Oral 480 240 Hemodialysis 400 Output: Urine 745 1150 740 Hemodialysis 2400 Hemodialysis Net Amount 2000 Other: Voiding Method Indwelling Catheter Indwelling Catheter Indwelling Catheter ABP, PAP, CO, CI - Last Documented Arterial Blood Pressure 100/46 - Labs CBC & Chem 7: 07/06/24 05:05 07/06/24 05:05 Labs: Abnormal Lab Results - Last 24 Hours (Table) 07/06/24 07/06/24 Range/Units 05:05 05:05 RBC 3.42 L (4.30-5.90) m/uL Hgb 11.8 L (13.0-17.5) gm/dL Hct 35.7 L (39.0-53.0) % MCV 104.2 H (80.0-100.0) fL RDW 18.6 H (11.5-15.5) % Lymphocytes # 0.7 L (1.0-4.8) k/uL Macrocytosis Marked A Sodium 135 L (137-145) mmol/L BUN 102 H* (9-20) mg/dL Creatinine 4.31 H (0.66-1.25) mg/dL Glucose 114 H (74-99) mg/dL
[2024-07-07 00:04] LABS: Hepatitis B Surface AB- Quant 3.5 mIU/mL
[2024-07-07 00:08] LABS: Hepatitis B Surface Antigen Nonreactive (Nonreactive)
[2024-07-07 04:26] LABS: Anisocytosis Slight; Basophils # (A) 0.1 k/uL (0-0.2); Basophils % (A) 1 %; Eosinophils # (A) 0.2 k/uL (0-0.7); Eosinophils % (A) 3 %; HCT 34.5 % (39.0-53.0); HGB 11.3 gm/dL (13.0-17.5); Lymphocytes # (A) 0.6 k/uL (1.0-4.8); Lymphocytes % (A) 7 %; MCH 34.7 pg (25.0-35.0); MCHC 32.8 g/dL (31.0-37.0); MCV 105.5 fL (80.0-100.0); Macrocytosis Marked; Mean Platelet Volume 9.7; Monocytes # (A) 0.6 k/uL (0-1.0); Monocytes % (A) 7 %; Neutrophils # (A) 6.6 k/uL (1.3-7.7); Neutrophils % (A) 80 %; Platelet Count 150 k/uL (150-450); RBC 3.27 m/uL (4.30-5.90); RDW 17.7 % (11.5-15.5); WBC 8.2 k/uL (3.8-10.6)
[2024-07-07 04:51] LABS: African American GFR (CKD) 15 (>60 ml/min/1.73 sqM); Anion Gap 9 mmol/L; Blood Urea Nitrogen 90 mg/dL (9-20); Calcium 8.7 mg/dL (8.4-10.2); Carbon Dioxide 26 mmol/L (22-30); Chloride 100 mmol/L (98-107); Glucose 105 mg/dL (74-99); Non-African American GFR(CKD) 13 (>60 ml/min/1.73 sqM); Potassium 4.3 mmol/L (3.5-5.1); Sodium 135 mmol/L (137-145)
--- NOTE | 2024-07-07 06:02 | P.PN ---
Subjective HISTORY OF PRESENTING ILLNESS This is a 78-year-old patient of Dr. Deleon with past medical history of morbid obesity, permanent atrial fibrillation on Coumadin, hypertension, dyslipidemia, history of DVT, dilated thoracic aorta and valvular heart disease, pulmonary hypertension. We have been asked to evaluate the patient for heart failure. Patient gives history that he had a fall at home. He states his knee gave out on him. He complains of shortness of breath. He feels poorly in general. He is not very active at home. He denies having any fever. No history of smoking. No palpitations. Edema which she states is at his baseline. No blood in his stool or urine. No history of stroke or seizure. 07/01/2024 Was seen and examined resting comfortably in bed. Blood pressure is improved but remains on the low side. He is being followed by nephrology who has started a Lasix drip at 10 mL/h. They have increased metolazone to 5 mg p.o. daily and discontinued Farxiga due to current infection. Overall patient continues to complain of shortness of breath. Continues to complain of orthopnea but improving. Continues to complain of significant lower extremity edema labs this morning showed a creatinine of 2.92. INR 2.0. 07/02/2024 The patient was seen and examined resting comfortably in bed. He is overall feeling his breathing is a bit better. Continues to have significant edema. Continues to be followed by nephrology with adjustments made to his diuretics as well as the addition of albumin. Renal function is worse with a creatinine of 3.54. Blood pressure remains low. 07/03 Patient seen and examined. Patient remains on metoprolol 100 twice a day with borderline blood pressures and patient has been on norepinephrine as well as a Lasix drip at 5 and Zaroxolyn. Urine output approximately 50 mL/h. Denies a chest pain or pressure. Still significant large from edema. Creatinine relatively stable at 3.5. 07/04 patient seen and examined. Patient's echo reviewed and does have severe right ventricular dilation, significantly increased right ventricular pressures with some right ventricular hypokinesis and atypical septal motion which appears consistent with RV overload. There is additional mild pericardial effusion however no obvious Cannot physiology. Patient continues on the IV Lasix drip at 10 with addition of Zaroxolyn with marginal urine outputs and not much negative urine output. Denies any chest pain or pressure. Still remains on metoprolol. Blood pressures borderline and has been on low-dose norepinephrine. 07/05 Patient seen and examined. Hemoglobin 11.1, BUN 101, creatinine 3.9. Still having urine output of approximately 50 mL per hour. Metoprolol was decreased and heart rates closer to 100 in attempt to increase cardiac output, decrease negative inotrope. 07/06 patient seen and examined. Patient had dialysis catheter placed and undergoing dialysis for the first time today with 2 L output. Remains on norepinephrine. Denies any chest pain or pressure. 07/07 Patient seen and examined. Patient underwent dialysis yesterday with approximately 2 L output. Hemoglobin stable 11.3, BUN 90, creatinine 4.1. He does state he feels better today. Heart rates have been up in the 90-110 range fairly consistently. PHYSICAL EXAMINATION Vital signs reviewed. CONSTITUTIONAL: No apparent distress. HEENT: Head is normocephalic. Pupils are equal, round. Sclerae anicteric. Mucous membranes of the mouth are moist. No JVD. No carotid bruit. CHEST EXAMINATION: Lungs are clear to auscultation. No chest wall tenderness is noted on palpation or with deep breathing. HEART EXAMINATION: Regular rate and rhythm. S1, S2 heard. No murmurs, gallops or rub. ABDOMEN: Soft, nontender. Positive bowel sounds. EXTREMITIES: 2+ peripheral pulses, 2+ lower extremity edema and no calf tender ness. NEUROLOGIC EXAMINATION: Patient is awake, alert and oriented x3. ASSESSMENT Generalized weakness and fall Permanent atrial fibrillation on Coumadin and will transition to Eliquis however may consider RHC and hold for now Acute on chronic diastolic heart failure, mainly right sided Supratherapeutic INR Hypertension Dyslipidemia History of DVT Dilated thoracic aorta Valvular heart disease with moderate MR, moderate to severe pulmonary hypertension small pericardial effusion Plan: Patient still significantly volume overloaded and monitor response of hemodialysis. Stop her body as this may be causing some exacerbation of his hypotension. Increase metoprolol back up to 100 twice a day with heart rates borderline RVR. Monitor patient's response to dialysis. Prognosis guarded. Objective - Vital Signs Vital signs: Vital Signs Temp 98 F 07/07/24 00:00 Pulse 112 H 07/07/24 04:15 Resp 19 07/07/24 04:15 BP 82/54 07/06/24 19:00 Pulse Ox 93 L 07/07/24 04:15 FiO2 21 07/07/24 04:35 Intake & Output 07/06/24 07/06/24 07/07/24 06:59 18:59 06:59 Intake Total 732.337 656 337.178 Output Total 1150 5455 590 Balance -417.663 -4799 -252.822 Weight 183.02 kg 183.02 kg 182.2 kg Intake: IV 143 156 130 KVO 0.9 NS 110 120 100 pressure bag 33 36 30 Intake, IV Titration 349.337 100 207.178 Amount Furosemide 100 mg In 162.834 100 73.333 Sodium Chloride 0.9% 90 ml @ 10 MG/HR 10 mls/hr IV .Q10H [facility] Rx#: [id number] Norepinephrine 32 mg In 186.503 133.845 Sodium Chloride 0.9% 218 ml @ 0.03 MCG/KG/MIN 2.63 mls/hr IV .Q24H [facility]FI Rx#: [id number] Oral 240 Hemodialysis 400 Output: Urine 1150 1055 590 Hemodialysis 2400 Hemodialysis Net Amount 1999 Other: Voiding Method Indwelling Catheter Indwelling Catheter Indwelling Catheter ABP, PAP, CO, CI - Last Documented Arterial Blood Pressure 102/84 - Labs CBC & Chem 7: 07/07/24 04:15 07/07/24 04:15 Labs: Abnormal Lab Results - Last 24 Hours (Table) 07/06/24 07/06/24 07/07/24 Range/Units 05:05 05:05 04:15 RBC 3.27 L (4.30-5.90) m/uL Hgb 11.3 L (13.0-17.5) gm/dL Hct 34.5 L (39.0-53.0) % MCV 105.5 H (80.0-100.0) fL RDW 17.7 H (11.5-15.5) % Lymphocytes # 0.7 L 0.6 L (1.0-4.8) k/uL Macrocytosis Marked A Sodium 135 L (137-145) mmol/L BUN 102 H* (9-20) mg/dL Creatinine 4.31 H (0.66-1.25) mg/dL Glucose 114 H (74-99) mg/dL 07/07/24 Range/Units 04:15 RBC (4.30-5.90) m/uL Hgb (13.0-17.5) gm/dL Hct (39.0-53.0) % MCV (80.0-100.0) fL RDW (11.5-15.5) % Lymphocytes # (1.0-4.8) k/uL Macrocytosis Sodium 135 L (137-145) mmol/L BUN 90 H (9-20) mg/dL Creatinine 4.13 H (0.66-1.25) mg/dL Glucose 105 H (74-99) mg/dL
--- NOTE | 2024-07-07 08:39 | XR ---
EXAMINATION TYPE: XR chest 1V portable DATE OF EXAM: 07/07/2024 5:33 AM CLINICAL INDICATION: Male, 78 years old with history of Fluid Overload; [facility] COMPARISON: 07/06/2024 TECHNIQUE: XR chest 1V portable Frontal view of the chest. FINDINGS: Lungs/Pleura: There is no evidence of pleural effusion, focal consolidation, or pneumothorax. Pulmonary vascularity: Pulmonary vascular congestion. Heart/mediastinum: Cardiomediastinal silhouette is enlarged. Musculoskeletal: No acute osseous pathology. Other findings: None Lines/Tubes: Left-sided PICC with distal tip at the superior vena cava/brachiocephalic confluence. IMPRESSION: Mild pulmonary vascular congestion. Left PICC in and appropriate position. [facility], , 07/07/2024 8:37 AM
[2024-07-07] MEDS: METOPROLOL TARTRATE 50 MG TAB PO SCH (08:59)
--- NOTE | 2024-07-07 12:50 | P.PN ---
Subjective Progress Note Date: 07/07/24 Principal diagnosis: Reason for follow-up is left leg cellulitis Patient is a 78-year-old male with a past medical history significant for atrial fibrillation hypertension hyperlipidemia osteoarthritis sleep apnea presenting to the hospital for evaluation of weakness and fall patient has been diagnosed with a left lower extremity cellulitis prompted this consultation. On today's evaluation that is 07/07/2024, patient has been afebrile, patient is breathing comfortably and is currently on 3 L nasal oxygen, patient denies having any significant cough no chest pain, patient denies nausea vomiting or diarrhea and no abdominal pain, denies pain to the lower extremity. Patient white count is 8.2, creatinine is 4.13 blood culture has been negative Objective - Vital Signs Vital signs: Vital Signs Temp 98.3 F 07/07/24 08:00 Pulse 101 H 07/07/24 11:15 Resp 21 07/07/24 11:15 BP 82/54 07/06/24 19:00 Pulse Ox 95 07/07/24 11:15 FiO2 21 07/07/24 04:35 Intake & Output 07/06/24 07/07/24 07/07/24 18:59 06:59 18:59 Intake Total 656 943.178 323.420 Output Total 5455 715 270 Balance -4799 228.178 53.420 Weight 183.02 kg 182.2 kg Intake: IV 156 256 65 Ampicillin-Sulbactam 3 gm 100 In Sodium Chloride 0.9% 100 ml @ 200 mls/hr IVPB Q8HR [facility] Rx#:[id number] KVO 0.9 NS 120 120 50 pressure bag 36 36 15 Intake, IV Titration 100 207.178 258.420 Amount Furosemide 100 mg In 100 73.333 80.667 Sodium Chloride 0.9% 90 ml @ 10 MG/HR 10 mls/hr IV .Q10H [facility] Rx#: [id number] Norepinephrine 32 mg In 133.845 177.753 Sodium Chloride 0.9% 218 ml @ 0.03 MCG/KG/MIN 2.63 mls/hr IV .Q24H [facility] Rx#: [id number] Oral 480 Hemodialysis 400 Output: Urine 1055 715 270 Hemodialysis 2400 Hemodialysis Net Amount 1999 Other: Voiding Method Indwelling Catheter Indwelling Catheter Indwelling Catheter ABP, PAP, CO, CI - Last Documented Arterial Blood Pressure 96/44 - Exam GENERAL DESCRIPTION: An elderly male lying in bed in no distress RESPIRATORY SYSTEM: Unlabored breathing , decreased breath sounds at bases HEART: S1 S2 regular rate and rhythm , ABDOMEN: Soft , no tenderness EXTREMITIES: Left leg swelling redness slightly decreased no open wound or any drainage - Labs CBC & Chem 7: 07/07/24 04:15 07/07/24 04:15 Labs: Abnormal Lab Results - Last 24 Hours (Table) 07/07/24 07/07/24 Range/Units 04:15 04:15 RBC 3.27 L (4.30-5.90) m/uL Hgb 11.3 L (13.0-17.5) gm/dL Hct 34.5 L (39.0-53.0) % MCV 105.5 H (80.0-100.0) fL RDW 17.7 H (11.5-15.5) % Lymphocytes # 0.6 L (1.0-4.8) k/uL Macrocytosis Marked A Sodium 135 L (137-145) mmol/L BUN 90 H (9-20) mg/dL Creatinine 4.13 H (0.66-1.25) mg/dL Glucose 105 H (74-99) mg/dL Assessment and Plan (1) Left leg cellulitis Current Visit: Yes Status: Acute Code(s): L03.116 - CELLULITIS OF LEFT LOWER LIMB SNOMED Code(s): 32677557007012275 Plan: 1patient presented to hospital with generalized weakness and falls in this patient who did have chronic swelling to the lower extremity now with worsening swelling redness to the left leg concerning for cellulitis likely streptococcal disease with diffuse swelling and redness no evidence of any purulence 2-patient is afebrile white count is normal patient has received adequate antibiotic therapy for underlying cellulitis and a question of possible UTI we will go ahead and discontinue Unasyn and monitor the patient closely off antibiotic therapy Dictation was produced using [employer] dictation software. please excuse any grammatical, word or spelling errors. Time with Patient: Less than 30
--- NOTE | 2024-07-07 13:58 | P.PN ---
Subjective Progress Note Date: 07/07/24 Principal diagnosis: Acute on chronic right-sided congestive heart failure with chronic hypotension This is a 78-year-old male patient with massive fluid overload, ongoing diffic ulty with chronic kidney failure as the patient has developed an acute on top of chronic renal disease with extensive third spacing and anasarca and possibly a component of cardiorenal syndrome. 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 Baseline creatinine is around 1.5 back in March 2024. The patient presented to us with volume overload, acute on top of chronic diastolic heart failure with moderate mitral regurgitation. Patient also was diagnosed having an Enterococcus urinary tract infection currently on IV Unasyn. Initial rate, attempts to diurese this patient with Lasix have failed due to ongoing hypotension. The patient was started on midodrine 10 mg p.o. 4 times daily. Subsequently, I was asked to transfer this patient to the ICU for hemodynamic support and pressor use as the patient was going to be started on Lasix 5 mg infusion in combination with Zaroxolyn 5 mg p.o. daily. Based on that, the patient was transferred to the ICU. Lasix s drip was started and the patient will be started also on norepinephrine for blood pressure support. He is currently awake and alert. Following commands. He is on oxygen at 2 L/min nasal cannula. His chest x-ray showing small bilateral pleural effusion and this is less x-ray that was done on 06/26/2024. Patient was evaluated today on 07/03/24, remains in the ICU, he was seen by Dr. Jp nance on consultation yesterday, he was placed on Lasix drip at 5 mg/h, making about 50 to 75 cc of urine per hour. Blood pressure is marginal he is requiring norepinephrine at 0.06 mcg/kg/min. Patient is not complaining of shortness of breath, he is on 2 L nasal cannula, he seems to be extremely swollen edematous and has anasarca. Nonetheless the patient is feeling better compared to yesterday. And seemsto be responding to the Lasix drip. WBC count is 8.4 hemoglobin 12.2 electrolytes are normal BUN is 92 creatinine 3.53., Relatively unchanged compared to yesterday.Patient's baseline creatinine on 06/26 was 2.19. Patient is receiving Unasyn for what seems to be acute urinary tract infection secondary to Enterococcus. Faecalis. Patient was evaluated today on 07/04/2024, remains in the ICU remains on Lasix drip and dose has been increased to 10 mg/h. Patient is requiring norepinephrine at 0.07 mcg/kg/min he is also on IV fluid at KVO. Antibiotics cooley he is on Unasyn for his UTI, and is also on Eliquis. Patient tells me that he is feeling better, breathing easier, and he continues to respond to Lasix but urine output did not improve much by increasing the dose of Lasix., WBC is 8.4 hemoglobin 11.9 basic metabolic profile is normal bicarb is 27 BUN is 95 creatinine 3.77 Gradually rising. His renal status is being addressed and followed by nephrology chest x-ray showed evidence of cardiomegaly and pulmonary vascular congestion. Patient remains on 2 L nasal cannula, and he is O2 saturation is 97%. Blood pressure is marginal, his mean arterial pressure is 6 8, patient is requiring norepinephrine Patient today on 07/05/2024, patient is not doing too great today. Patient is getting worse, he is developing worsening hypotension and requiring now higher doses of norepinephrine and higher doses of vasopressin. Patient required lines including central line and arterial line, and these were done today. Urine output remains about 35 to 40 cc/h, in spite of Lasix at 10 mg/h. His renal functioning is getting worse creatinine is up to 3.9 today. Again the patient is requiring norepinephrine and we have added vasopressin, patient seems to be developing acute kidney injury with ATN and hypotension as well as cardiorenal syndrome. Nephrology is considering to proceed with renal replacement therapy since the patient continues to remain volume overloaded. And urine output is not that great. His creatinine baseline in March was 1.5. Looking at his e chocardiogram, patient has chronic diastolic congestive heart failure with moderate mitral regurgitation, and severe pulmonary hypertension. Patient is also receiving antibiotics for his right lower extremity cellulitis, in addition he has Enterococcus urinary tract infection addressed by infectious disease on the case.WBC count is 7.1 hemoglobin is 11.1 basic metabolic profile is normal bicarb is 23 BUN is 101 creatinine 3.94. Chest x-ray is showing worsening pleural effusion and pulmonary edema Reevaluate today on 07/06/2024, patient remains in the ICU, still on pressors requiring norepinephrine at 0.24 mcg/kg/min, patient did not require vasopressin yesterday. Still on midodrine. A right femoral dialysis catheter was placed yesterday by vascular surgery. Patient is supposed to be started on hemodialysis today. Clinically today, he seems to be feeling better compared to yesterday.Denies any cough wheezing or shortness of breath, patient feels generally weak. WBC count is 7.9 hemoglobin 11.8 electrolytes are normal BUN is 102 creatinine 4.31 patient remains on Lasix drip at 10 mg/h, and the plan is to hemodialyze today Patient was evaluated today on 07/07/2024, patient remains in the ICU on 2 L nasal cannula patient underwent hemodialysis yesterday and 2 L were removed. His BUN is 90 creatinine 4.13. Remains on Lasix drip at 10 mg/h he is still requiring norepinephrine at 0.21 mcg/kg/min, blood pressure remains marginal at best. Patient is still covered with Unasyn still on Eliquis, patient was placed on Lopressor at 100 mg p.o. or twice daily by cardiology his echocardiogram showed significant valvular heart disease, pulmonary hypertension, ejection fraction is 50 to 55%. Patient is complaining today of some bloating and abdominal discomfort, but no nausea no vomiting. No significant pain. WBC count today is 8.2 hemoglobin 11.3 electrolytes are normal BUN is 90 creatinine 4.13, chest x-ray showed mild pulmonary vascular congestion Objective - Vital Signs Vital signs: Vital Signs Temp 98.3 F 07/07/24 08:00 Pulse 101 H 07/07/24 11:15 Resp 21 07/07/24 11:15 BP 82/54 07/06/24 19:00 Pulse Ox 95 07/07/24 11:15 FiO2 21 07/07/24 04:35 Intake & Output 07/06/24 07/07/24 07/07/24 18:59 06:59 18:59 Intake Total 656 943.178 382.138 Output Total 5455 715 270 Balance -4799 228.178 112.138 Weight 183.02 kg 182.2 kg Intake: IV 156 256 65 Ampicillin-Sulbactam 3 gm 100 In Sodium Chloride 0.9% 100 ml @ 200 mls/hr IVPB Q8HR [facility] Rx#:[id number] KVO 0.9 NS 120 120 50 pressure bag 36 36 15 Intake, IV Titration 100 207.178 317.138 Amount Furosemide 100 mg In 100 73.333 80.667 Sodium Chloride 0.9% 90 ml @ 10 MG/HR 10 mls/hr IV .Q10H [facility] Rx#: [id number] Norepinephrine 32 mg In 133.845 236.471 Sodium Chloride 0.9% 218 ml @ 0.03 MCG/KG/MIN 2.63 mls/hr IV .Q24H [facility] Rx#: [id number] Oral 480 Hemodialysis 400 Output: Urine 1055 715 270 Hemodialysis 2400 Hemodialysis Net Amount 1999 Other: Voiding Method Indwelling Catheter Indwelling Catheter Indwelling Catheter ABP, PAP, CO, CI - Last Documented Arterial Blood Pressure 96/44 - Exam General: Revealed a 78-year-old white male morbidly obese on 2 L nasal cannula Head: Atraumatic, normocephalic Neck positive jugular venous distension, thyromegaly, or carotid bruits. Carotid upstrokes are brisk bilaterally. Lungs: Diminished breath sound bilaterally no rhonchi no wheezes Cardiac: Distant S1-S2, no S3 gallop, no murmur. Abdominal: Morbidly obese soft nontender no megaly positive abdominal wall edema Extremities 1+ bipedal edema femoral and pedal pulses are normal. Neurologically, alert oriented x 3 no gross focal deficits Psychiatric: Normal mood affect and no mental status examination. Skin: Decreased left leg swelling, redness, no open wounds or any drainage - Labs CBC & Chem 7: 07/07/24 04:15 07/07/24 04:15 Labs: Abnormal Lab Results - Last 24 Hours (Table) 07/07/24 07/07/24 Range/Units 04:15 04:15 RBC 3.27 L (4.30-5.90) m/uL Hgb 11.3 L (13.0-17.5) gm/dL Hct 34.5 L (39.0-53.0) % MCV 105.5 H (80.0-100.0) fL RDW 17.7 H (11.5-15.5) % Lymphocytes # 0.6 L (1.0-4.8) k/uL Macrocytosis Marked A Sodium 135 L (137-145) mmol/L BUN 90 H (9-20) mg/dL Creatinine 4.13 H (0.66-1.25) mg/dL Glucose 105 H (74-99) mg/dL Assessment and Plan Assessment: Impression: Acute on chronic right-sided congestive heart failure with hypotension, requiring pressors remains on norepinephrine Acute on chronic stage IIIb kidney disease with massive volume overload Hyperlipidemia Chronic atrial fibrillation, maintained on anticoagulation with Eliquis Enterococcus urinary tract infection currently on IV Unasyn. Severe pulmonary hypertension Morbid obesity Gout History of obstructive sleep apnea, not tolerant to CPAP therapy Previous history of WPW and SVT Osteoarthritis Previous history of DVT of lower extremities Glucoma Plan Continue to monitor in the ICU Continue norepinephrine Continue hemodialysis Continue oxygen and titrate accordingly May have to consider stopping Lasix, that is to be decided by nephrology on the case. Continue midodrine Continue anticoagulation with Eliquis Continue to monitor closely his I's and O's and fluid status Will arrange for CVP monitoring We will continue to follow Time with Patient: Less than 30
--- NOTE | 2024-07-07 15:08 | P.PN ---
Subjective Patient is seen for follow-up for acute kidney injury and chronic kidney disease. Currently maintained on Lasix drip at 10 mg an hour. Patient has an indwelling Monzon catheter which was placed by urology. Urine output at 80-60mL/h Blood pressure remains low and patient is maintained on low-dose levo fed which has been increased. Started on hemodialysis on 07/06/2024. Patient did not tolerate treatment well yesterday due to significantly low blood pressure. Objective - Vital Signs Vital signs: Vital Signs Temp 98.3 F 07/07/24 08:00 Pulse 101 H 07/07/24 11:15 Resp 21 07/07/24 11:15 BP 82/54 07/06/24 19:00 Pulse Ox 95 07/07/24 11:15 FiO2 21 07/07/24 04:35 Intake & Output 07/06/24 07/07/24 07/07/24 18:59 06:59 18:59 Intake Total 656 943.178 382.138 Output Total 5455 715 270 Balance -4799 228.178 112.138 Weight 183.02 kg 182.2 kg Intake: IV 156 256 65 Ampicillin-Sulbactam 3 gm 100 In Sodium Chloride 0.9% 100 ml @ 200 mls/hr IVPB Q8HR [facility] Rx#:[id number] KVO 0.9 NS 120 120 50 pressure bag 36 36 15 Intake, IV Titration 100 207.178 317.138 Amount Furosemide 100 mg In 100 73.333 80.667 Sodium Chloride 0.9% 90 ml @ 10 MG/HR 10 mls/hr IV .Q10H [facility] Rx#: [id number] Norepinephrine 32 mg In 133.845 236.471 Sodium Chloride 0.9% 218 ml @ 0.03 MCG/KG/MIN 2.63 mls/hr IV .Q24H [facility] Rx#: [id number] Oral 480 Hemodialysis 400 Output: Urine 1055 715 270 Hemodialysis 2400 Hemodialysis Net Amount 1999 Other: Voiding Method Indwelling Catheter Indwelling Catheter Indwelling Catheter ABP, PAP, CO, CI - Last Documented Arterial Blood Pressure 96/44 - Exam Patient is awake, comfortable, no acute distress. Examination of the heart S1 and S2 Examination of the lungs decreased breath sounds at the bases Abdomen is soft obese nontender Examination of lower extremities shows edema 2+ bilaterally [employer] exam grossly intact - Labs CBC & Chem 7: 07/07/24 04:15 07/07/24 04:15 Labs: Abnormal Lab Results - Last 24 Hours (Table) 07/07/24 07/07/24 Range/Units 04:15 04:15 RBC 3.27 L (4.30-5.90) m/uL Hgb 11.3 L (13.0-17.5) gm/dL Hct 34.5 L (39.0-53.0) % MCV 105.5 H (80.0-100.0) fL RDW 17.7 H (11.5-15.5) % Lymphocytes # 0.6 L (1.0-4.8) k/uL Macrocytosis Marked A Sodium 135 L (137-145) mmol/L BUN 90 H (9-20) mg/dL Creatinine 4.13 H (0.66-1.25) mg/dL Glucose 105 H (74-99) mg/dL Assessment and Plan Assessment: 1. Acute kidney injury secondary to ATN secondary to hypotension and cardiorenal syndrome. Started on hemodialysis on 07/06/2024 due to worsening re nal function and persistent volume overload. Patient did not tolerate treatment well due to significant hypotension.. No hydronephrosis noted on ultrasound. Trace protein on UA. 2. 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 Creatinine 1.5 in March 2024. 3. Acute on chronic diastolic CHF and moderate mitral consultation, severe tricuspid regurgitation and pulmonary hypertension. 4. Volume overload. Maintained on Lasix drip. 5. Right lower extremity cellulitis and Enterococcus UTI on antibiotics. ID following. 6. Hypervolemic hyponatremia. Stable. Plan: Repeat hemodialysis today. Hold Lasix drip Continue pressors continue antibiotics Repeat labs in a.m.
--- NOTE | 2024-07-07 21:34 | P.PN ---
Subjective Progress Note Date: 07/06/24 Acute on chronic right-sided congestive heart failure with chronic hypotension Patient is a 78-year-old male was admitted to hospital due to fluid overload and history of chronic kidney disease acute on chronic due to mild cardiorenal syndrome., Baseline creatinine level 1.5. Patient was diagnosed with Enterococcus urinary tract infection currently on Unasyn. Unable to diurese due to hypotension. Patient was started on midodrine and subsequently transferred to MICU due to hypotension. He was started on Lasix drip and Zaroxolyn p.o. and also was requiring norepinephrine for pressor support. 07/06/2024 Patient remains in MICU. Awake alert and oriented x 3. Currently lying in the bed. Requiring pressor support with norepinephrine and is also being continued on midodrine. Nephrology is planning for hemodialysis and right femoral Jaron catheter was placed by vascular surgery. Otherwise patient denied any chest pain. No worsening shortness of breath. Chest x-ray showed cardiomegaly, pulmonary vascular congestion and bilateral pleural effusions. Correlate with BNP for CHF. Laboratory data showed WBC 7.9 hemoglobin 11.8 and platelets 198, sodium 135 potassium 4.3 chloride 99 bicarb is 26, BUN 102 and creatinine 4.31 and calcium 8.8. Current medications reviewed. Objective - Vital Signs Vital signs: Vital Signs Temp 97.9 F 07/06/24 16:16 Pulse 99 07/06/24 16:16 Resp 16 07/06/24 16:16 BP 108/51 07/06/24 16:16 Pulse Ox 97 07/06/24 16:00 FiO2 21 07/06/24 08:00 Intake & Output 07/06/24 07/06/24 07/07/24 06:59 18:59 06:59 Intake Total 732.337 630 Output Total 1150 5140 Balance -417.663 -4510 Weight 183.02 kg 183.02 kg Intake: IV 143 130 KVO 0.9 NS 110 100 pressure bag 33 30 Intake, IV Titration 349.337 100 Amount Furosemide 100 mg In 162.834 100 Sodium Chloride 0.9% 90 ml @ 10 MG/HR 10 mls/hr IV .Q10H [facility] Rx#: [id number] Norepinephrine 32 mg In 186.503 Sodium Chloride 0.9% 218 ml @ 0.03 MCG/KG/MIN 2.63 mls/hr IV .Q24H [facility] Rx#: [id number] Oral 240 Hemodialysis 400 Output: Urine 1150 740 Hemodialysis 2400 Hemodialysis Net Amount 1999 Other: Voiding Method Indwelling Catheter Indwelling Catheter ABP, PAP, CO, CI - Last Documented Arterial Blood Pressure 115/51 - Exam PHYSICAL EXAMINATION: Patient is lying in the bed comfortably, no acute distress, awake alert and oriented. Morbidly obese.. HEENT: Normocephalic. Neck is supple. Pupils reactive. Nostrils clear. Oral cavity is moist. Neck reveals no JVD, carotid bruits, or thyromegaly. CHEST EXAMINATION: Trachea is central. Symmetrical expansion. Bibasilar diminished sounds. No wheezing or rhonchi.. CARDIAC: Normal S1, S2 with no gallops. No murmurs ABDOMEN: Soft. Bowel sounds normal. No organomegaly. No abdominal bruits. Extremities: Bilateral lower extremity edema anasarca. No clubbing or cyanosis Neurologically awake, alert, oriented x3 with well-coordinated movements. No gross focal deficits noted Skin: No rash or skin lesions. Psychiatric: Coperative. Nonsuicidal Musculoskeletal: No joint swelling or deformity. - Labs CBC & Chem 7: 07/07/24 04:15 07/07/24 04:15 Labs: Abnormal Lab Results - Last 24 Hours (Table) 07/06/24 07/06/24 Range/Units 05:05 05:05 RBC 3.42 L (4.30-5.90) m/uL Hgb 11.8 L (13.0-17.5) gm/dL Hct 35.7 L (39.0-53.0) % MCV 104.2 H (80.0-100.0) fL RDW 18.6 H (11.5-15.5) % Lymphocytes # 0.7 L (1.0-4.8) k/uL Macrocytosis Marked A Sodium 135 L (137-145) mmol/L BUN 102 H* (9-20) mg/dL Creatinine 4.31 H (0.66-1.25) mg/dL Glucose 114 H (74-99) mg/dL Assessment and Plan Assessment: Impression: Acute on chronic HFpEF mainly due to right heart failure. Acute on chronic kidney disease stage IIIb with volume overload. Permanent atrial fibrillation on anticoagulation with Coumadin transition to Eliquis Supratherapeutic INR level on admission Valvular heart disease with moderate MR, moderate to severe pulmonary hypertension Obstructive sleep apnea not tolerating CPAP History of WPW and SVT Hyperlipidemia Hypertension History of DVT Dilated thoracic aorta History of gout Osteoarthritis Enterococcus urinary tract infection currently on Unasyn Morbid obesity BMI 53.0 Plan: Patient is being continued on pressor support with norepinephrine currently in the MICU. Continued on Lasix drip and midodrine. Patient is being continued on anticoagulation with Eliquis. Nephrology is planning for hemodialysis today. Right femoral Jaron was placed by vascular surgery. Critical care team, nephrology, vascular surgery and cardiology is on board. Continue to monitor CBC and BMP. Prognosis is guarded with multimedical problems and comorbid conditions.. Time with Patient: Greater than 30
--- NOTE | 2024-07-07 21:38 | P.PN ---
Subjective Progress Note Date: 07/07/24 Acute on chronic right-sided congestive heart failure with chronic hypotension Patient is a 78-year-old male was admitted to hospital due to fluid overload and history of chronic kidney disease acute on chronic due to mild cardiorenal syndrome., Baseline creatinine level 1.5. Patient was diagnosed with Enterococcus urinary tract infection currently on Unasyn. Unable to diurese due to hypotension. Patient was started on midodrine and subsequently transferred to MICU due to hypotension. He was started on Lasix drip and Zaroxolyn p.o. and also was requiring norepinephrine for pressor support. 07/06/2024 Patient remains in MICU. Awake alert and oriented x 3. Currently lying in the bed. Requiring pressor support with norepinephrine and is also being continued on midodrine. Nephrology is planning for hemodialysis and right femoral Jaron catheter was placed by vascular surgery. Otherwise patient denied any chest pain. No worsening shortness of breath. Chest x-ray showed cardiomegaly, pulmonary vascular congestion and bilateral pleural effusions. Correlate with BNP for CHF. Laboratory data showed WBC 7.9 hemoglobin 11.8 and platelets 198, sodium 135 potassium 4.3 chloride 99 bicarb is 26, BUN 102 and creatinine 4.31 and calcium 8.8. 07/07/2024 Patient is in MICU. Awake alert and oriented x 3. Currently requiring 2 L oxygen via nasal cannula. Chest x-ray showed mild pulmonary vascular congestion. Left PICC in the appropriate position. Patient was initiated on hemodialysis on 07/06/2024 with 2 L ultrafiltration. Patient is maintained on Lasix drip and is also requiring norepinephrine for pressor support. Otherwise denied any abdominal pain. No nausea or vomiting. Did not have any bowel meant last few days. Otherwise patient is afebrile. No cough or sputum production. Laboratory data showed WBC 8.2 hemoglobin 11.3 and platelets 150 sodium 135 potassium 4.3 chloride 100 bicarb is 26 BUN 19 creatinine 4.13 and blood sugar 105 and calcium 8.7. Patient is on Unasyn for Enterococcus faecalis UTI. Current medications reviewed. Objective - Vital Signs Vital signs: Vital Signs Temp 98.3 F 07/07/24 20:00 Pulse 105 H 07/07/24 20:15 Resp 18 07/07/24 20:15 BP 82/54 07/07/24 19:00 Pulse Ox 93 L 07/07/24 20:15 FiO2 21 07/07/24 04:35 Intake & Output 07/07/24 07/07/24 07/08/24 06:59 18:59 06:59 Intake Total 943.178 973.138 54.139 Output Total 715 2770 400 Balance 228.178 -1796.862 -345.861 Weight 182.2 kg Intake: IV 256 156 26 Ampicillin-Sulbactam 3 gm 100 In Sodium Chloride 0.9% 100 ml @ 200 mls/hr IVPB Q8HR SOFI Rx#:[id number] KVO 0.9 NS 120 120 20 pressure bag 36 36 6 Intake, IV Titration 207.178 317.138 28.139 Amount Furosemide 100 mg In 73.333 80.667 Sodium Chloride 0.9% 90 ml @ 10 MG/HR 10 mls/hr IV .Q10H SO[facility] Rx#: [id number] Norepinephrine 32 mg In 133.845 236.471 28.139 Sodium Chloride 0.9% 218 ml @ 0.03 MCG/KG/MIN 2.63 mls/hr IV .Q24H SOFI Rx#: [id number] Oral 480 Hemodialysis 500 Output: Urine 715 270 400 Hemodialysis 1500 Hemodialysis Net Amount 1000 Other: Voiding Method Indwelling Catheter Indwelling Catheter Indwelling Catheter ABP, PAP, CO, CI - Last Documented Arterial Blood Pressure 118/59 - Exam PHYSICAL EXAMINATION: Patient is lying in the bed comfortably, no acute distress, awake alert and oriented. Morbidly obese.. HEENT: Normocephalic. Neck is supple. Pupils reactive. Nostrils clear. Oral cavity is moist. Neck reveals no JVD, carotid bruits, or thyromegaly. CHEST EXAMINATION: Trachea is central. Symmetrical expansion. Bibasilar diminished sounds. No wheezing or rhonchi.. CARDIAC: Normal S1, S2 with no gallops. No murmurs ABDOMEN: Soft. Bowel sounds normal. No organomegaly. No abdominal bruits. Extremities: Bilateral lower extremity edema anasarca. No clubbing or cyanosis Neurologically awake, alert, oriented x3 with well-coordinated movements. No gross focal deficits noted Skin: No rash or skin lesions. Psychiatric: Coperative. Nonsuicidal Musculoskeletal: No joint swelling or deformity. - Labs CBC & Chem 7: 07/07/24 04:15 07/07/24 04:15 Labs: Abnormal Lab Results - Last 24 Hours (Table) 07/07/24 07/07/24 Range/Units 04:15 04:15 RBC 3.27 L (4.30-5.90) m/uL Hgb 11.3 L (13.0-17.5) gm/dL Hct 34.5 L (39.0-53.0) % MCV 105.5 H (80.0-100.0) fL RDW 17.7 H (11.5-15.5) % Lymphocytes # 0.6 L (1.0-4.8) k/uL Macrocytosis Marked A Sodium 135 L (137-145) mmol/L BUN 90 H (9-20) mg/dL Creatinine 4.13 H (0.66-1.25) mg/dL Glucose 105 H (74-99) mg/dL Assessment and Plan Assessment: Impression: Acute on chronic HFpEF mainly due to right heart failure. Acute on chronic kidney disease stage IIIb with volume overload. Possible cardiorenal. Requiring hemodialysis initiated on 07/06/2024 Permanent atrial fibrillation on anticoagulation with Coumadin transition to Eliquis Supratherapeutic INR level on admission Valvular heart disease with moderate MR, moderate to severe pulmonary hypertension Obstructive sleep apnea not tolerating CPAP History of WPW and SVT Hyperlipidemia Hypertension History of DVT Dilated thoracic aorta History of gout Osteoarthritis Enterococcus urinary tract infection currently on Unasyn Morbid obesity BMI 53.0 Plan: Patient is being continued on pressor support with norepinephrine currently in the MICU. Continued on Lasix drip and midodrine. Patient is being continued on anticoagulation with Eliquis. Nephrology is planning for hemodialysis today. Right femoral Jaron was placed by vascular surgery. Critical care team, ID, nephrology, vascular surgery and cardiology is on board. Continue to monitor CBC and BMP. Prognosis is guarded with multimedical problems and comorbid conditions.. Time with Patient: Greater than 30
[2024-07-08 04:32] LABS: Anisocytosis Slight; Basophils # (A) 0.1 k/uL (0-0.2); Basophils % (A) 1 %; Eosinophils # (A) 0.4 k/uL (0-0.7); Eosinophils % (A) 4 %; HCT 33.7 % (39.0-53.0); HGB 11.4 gm/dL (13.0-17.5); Lymphocytes # (A) 0.8 k/uL (1.0-4.8); Lymphocytes % (A) 9 %; MCH 35.4 pg (25.0-35.0); MCHC 33.8 g/dL (31.0-37.0); MCV 104.7 fL (80.0-100.0); Mean Platelet Volume 10.2; Monocytes # (A) 0.8 k/uL (0-1.0); Monocytes % (A) 9 %; Neutrophils # (A) 7.2 k/uL (1.3-7.7); Neutrophils % (A) 77 %; Platelet Count 136 k/uL (150-450); RBC 3.22 m/uL (4.30-5.90); RDW 18.3 % (11.5-15.5); WBC 9.3 k/uL (3.8-10.6)
[2024-07-08 04:33] LABS: Macrocytosis Marked
[2024-07-08 04:55] LABS: African American GFR (CKD) 19 (>60 ml/min/1.73 sqM); Anion Gap 7 mmol/L; Blood Urea Nitrogen 82 mg/dL (9-20); Calcium 8.6 mg/dL (8.4-10.2); Carbon Dioxide 26 mmol/L (22-30); Chloride 100 mmol/L (98-107); Glucose 103 mg/dL (74-99); Non-African American GFR(CKD) 16 (>60 ml/min/1.73 sqM); Potassium 4.2 mmol/L (3.5-5.1); Sodium 133 mmol/L (137-145)
--- NOTE | 2024-07-08 07:56 | XR ---
EXAMINATION TYPE: XR chest 1V portable DATE OF EXAM: 07/08/2024 COMPARISON: 07/07/2024 INDICATION: Fluid overload TECHNIQUE: Single frontal view of the chest is obtained. FINDINGS: The heart size is enlarged. The pulmonary vasculature is normal. Some mild hazy appearance at the right lung base. Correlate for atelectasis. Left central venous catheter tip is within the superior vena cava region. IMPRESSION: 1. Thyromegaly. 2. Right basilar atelectasis [facility], Workstation: [facility], 07/08/2024 7:54 AM
[2024-07-08] MEDS: polyethylene glycoL 3350 17 GM POWD.PACK PO PRN (09:23)
--- NOTE | 2024-07-08 11:22 | P.PN ---
Subjective Progress Note Date: 07/08/24 HISTORY OF PRESENTING ILLNESS This is a 78-year-old patient of Dr. Deleon with past medical history of morbid obesity, permanent atrial fibrillation on Coumadin, hypertension, dyslipidemia, history of DVT, dilated thoracic aorta and valvular heart disease, pulmonary hypertension. We have been asked to evaluate the patient for heart failure. Patient gives history that he had a fall at home. He states his knee gave out on him. He complains of shortness of breath. He feels poorly in general. He is not very active at home. He denies having any fever. No history of smoking. No palpitations. Edema which she states is at his baseline. No blood in his stool or urine. No history of stroke or seizure. 07/01/2024 Was seen and examined resting comfortably in bed. Blood pressure is improved but remains on the low side. He is being followed by nephrology who has started a Lasix drip at 10 mL/h. They have increased metolazone to 5 mg p.o. daily and discontinued Farxiga due to current infection. Overall patient continues to complain of shortness of breath. Continues to complain of orthopnea but improving. Continues to complain of significant lower extremity edema labs this morning showed a creatinine of 2.92. INR 2.0. 07/02/2024 The patient was seen and examined resting comfortably in bed. He is overall feeling his breathing is a bit better. Continues to have significant edema. Continues to be followed by nephrology with adjustments made to his diuretics as well as the addition of albumin. Renal function is worse with a creatinine of 3.54. Blood pressure remains low. 07/03 Patient seen and examined. Patient remains on metoprolol 100 twice a day with borderline blood pressures and patient has been on norepinephrine as well as a Lasix drip at 5 and Zaroxolyn. Urine output approximately 50 mL/h. Denies a chest pain or pressure. Still significant large from edema. Creatinine relatively stable at 3.5. 07/04 patient seen and examined. Patient's echo reviewed and does have severe right ventricular dilation, significantly increased right ventricular pressures with some right ventricular hypokinesis and atypical septal motion which appears consistent with RV overload. There is additional mild pericardial effusion however no obvious Cannot physiology. Patient continues on the IV Lasix drip at 10 with addition of Zaroxolyn with marginal urine outputs and not much negative urine output. Denies any chest pain or pressure. Still remains on metoprolol. Blood pressures borderline and has been on low-dose norepinephrine. 07/05 Patient seen and examined. Hemoglobin 11.1, BUN 101, creatinine 3.9. Still having urine output of approximately 50 mL per hour. Metoprolol was decreased and heart rates closer to 100 in attempt to increase cardiac output, decrease negative inotrope. 07/06 patient seen and examined. Patient had dialysis catheter placed and undergoing dialysis for the first time today with 2 L output. Remains on norepinephrine. Denies any chest pain or pressure. 07/07 Patient seen and examined. Patient underwent dialysis yesterday with approximately 2 L output. Hemoglobin stable 11.3, BUN 90, creatinine 4.1. He does state he feels better today. Heart rates have been up in the 90-110 range fairly consistently. 07/08 Patient seen and examined in the intensive care unit. He underwent HD yesterday with 1 L of fluid removed. His urine output has been 25 to 35 cc/h. He does complain of increasing difficulty in breathing today. Heart rate is running between 90 and 105, blood pressure 104/45, pulse ox 95% on 2 L nasal cannula. Repeat blood work reveals hemoglobin 11.4. BUN 32 creatinine 3.49, sodium 133, potassium 4.2. Repeat chest x-ray reveals thyromegaly, right basilar atelectasis. PHYSICAL EXAMINATION Vital signs reviewed. CONSTITUTIONAL: No apparent distress. HEENT: Head is normocephalic. Pupils are equal, round. Sclerae anicteric. Mucous membranes of the mouth are moist. No JVD. No carotid bruit. CHEST EXAMINATION: Lungs are clear to auscultation. No chest wall tenderness is noted on palpation or with deep breathing. HEART EXAMINATION: Regular rate and rhythm. S1, S2 heard. No murmurs, gallops or rub. ABDOMEN: Soft, nontender. Positive bowel sounds. EXTREMITIES: 2+ peripheral pulses, 2+ lower extremity edema and no calf tenderness. NEUROLOGIC EXAMINATION: Patient is awake, alert and oriented x3. ASSESSMENT Generalized weakness and fall Permanent atrial fibrillation on Coumadin and will transition to Eliquis however may consider RHC and hold for now Acute on chronic diastolic heart failure, mainly right sided Supratherapeutic INR Acute kidney injury started on HD 07/06 Chronic kidney disease stage IIIb Hypertension Dyslipidemia History of DVT Dilated thoracic aorta Valvular heart disease with moderate MR, moderate to severe pulmonary hypertension small pericardial effusion Plan: Patient still significantly volume overloaded and monitor response of hemodialysis. Continue metoprolol 100 twice a day Monitor patient's response to dialysis. Prognosis guarded. Nurse practitioner note has been reviewed, I agree with documented findings and plan of care. Patient was seen and examined. Objective - Vital Signs Vital signs: Vital Signs Temp 98.2 F 07/08/24 08:00 Pulse 100 07/08/24 09:00 Resp 19 07/08/24 09:00 BP 82/54 07/07/24 19:00 Pulse Ox 95 07/08/24 09:00 FiO2 21 07/08/24 01:04 Intake & Output 07/07/24 07/08/24 07/08/24 18:59 06:59 18:59 Intake Total 973.138 403.618 28.911 Output Total 2770 765 Balance -1796.862 -361.382 28.911 Weight 178.035 kg Intake: IV 156 169 KVO 0.9 NS 120 130 pressure bag 36 39 Intake, IV Titration 317.138 234.618 28.911 Amount Furosemide 100 mg In 80.667 Sodium Chloride 0.9% 90 ml @ 10 MG/HR 10 mls/hr IV .Q10H SOFI Rx#: [id number] Norepinephrine 32 mg In 236.471 234.618 28.911 Sodium Chloride 0.9% 218 ml @ 0.03 MCG/KG/MIN 2.63 mls/hr IV .Q24H SOFI Rx#: [id number] Hemodialysis 500 Output: Urine 270 765 Hemodialysis 1500 Hemodialysis Net Amount 1000 Other: Voiding Method Indwelling Catheter Indwelling Catheter ABP, PAP, CO, CI - Last Documented Arterial Blood Pressure 102/45 - Labs CBC & Chem 7: 07/08/24 04:20 07/08/24 04:20 Labs: Abnormal Lab Results - Last 24 Hours (Table) 07/08/24 07/08/24 Range/Units 04:20 04:20 RBC 3.22 L (4.30-5.90) m/uL Hgb 11.4 L (13.0-17.5) gm/dL Hct 33.7 L (39.0-53.0) % MCV 104.7 H (80.0-100.0) fL MCH 35.4 H (25.0-35.0) pg RDW 18.3 H (11.5-15.5) % Plt Count 136 L (150-450) k/uL Lymphocytes # 0.8 L (1.0-4.8) k/uL Macrocytosis Marked A Sodium 133 L (137-145) mmol/L BUN 82 H (9-20) mg/dL Creatinine 3.49 H (0.66-1.25) mg/dL Glucose 103 H (74-99) mg/dL
--- NOTE | 2024-07-08 11:23 | P.PN ---
Subjective Patient is seen for follow-up for acute kidney injury and chronic kidney disease. Lasix drip was discontinued yesterday. Urine output at 30-40 mL/h Blood pressure remains low and patient is maintained on high-dose levo fed Started on hemodialysis on 07/06/2024. Patient did not tolerate treatment well yesterday due to significantly low blood pressure. Net UF 1 L Objective - Vital Signs Vital signs: Vital Signs Temp 98.2 F 07/08/24 08:00 Pulse 100 07/08/24 09:00 Resp 19 07/08/24 09:00 BP 82/54 07/07/24 19:00 Pulse Ox 95 07/08/24 09:00 FiO2 21 07/08/24 01:04 Intake & Output 07/07/24 07/08/24 07/08/24 18:59 06:59 18:59 Intake Total 973.138 403.618 54.911 Output Total 2770 765 60 Balance -1796.862 -361.382 -5.089 Weight 178.035 kg Intake: IV 156 169 26 KVO 0.9 NS 120 130 20 pressure bag 36 39 6 Intake, IV Titration 317.138 234.618 28.911 Amount Furosemide 100 mg In 80.667 Sodium Chloride 0.9% 90 ml @ 10 MG/HR 10 mls/hr IV .Q10H SOFI Rx#: [id number] Norepinephrine 32 mg In 236.471 234.618 28.911 Sodium Chloride 0.9% 218 ml @ 0.03 MCG/KG/MIN 2.63 mls/hr IV .Q24H SOFI Rx#: [id number] Hemodialysis 500 Output: Urine 270 765 60 Hemodialysis 1500 Hemodialysis Net Amount 1000 Other: Voiding Method Indwelling Catheter Indwelling Catheter Indwelling Catheter ABP, PAP, CO, CI - Last Documented Arterial Blood Pressure 102/45 - Exam Patient is awake, comfortable, no acute distress. Examination of the heart S1 and S2 Examination of the lungs decreased breath sounds at the bases Abdomen is soft obese nontender Examination of lower extremities shows edema 1+ bilaterally, improving SECOND CUTTER exam grossly intact - Labs CBC & Chem 7: 07/08/24 04:20 07/08/24 04:20 Labs: Abnormal Lab Results - Last 24 Hours (Table) 07/08/24 07/08/24 Range/Units 04:20 04:20 RBC 3.22 L (4.30-5.90) m/uL Hgb 11.4 L (13.0-17.5) gm/dL Hct 33.7 L (39.0-53.0) % MCV 104.7 H (80.0-100.0) fL MCH 35.4 H (25.0-35.0) pg RDW 18.3 H (11.5-15.5) % Plt Count 136 L (150-450) k/uL Lymphocytes # 0.8 L (1.0-4.8) k/uL Macrocytosis Marked A Sodium 133 L (137-145) mmol/L BUN 82 H (9-20) mg/dL Creatinine 3.49 H (0.66-1.25) mg/dL Glucose 103 H (74-99) mg/dL Assessment and Plan Assessment: 1. Acute kidney injury secondary to ATN secondary to hypotension and cardiorenal syndrome. Started on hemodialysis on 07/06/2024 due to worsening renal function and persistent volume overload. Patient did not tolerate treatment well due to significant hypotension.. No hydronephrosis noted on ultrasound. Trace protein on UA. 2. 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 Creatinine 1.5 in March 2024. 3. Acute on chronic diastolic CHF and moderate mitral consultation, severe tricuspid regurgitation and pulmonary hypertension. 4. Volume overload. Maintained on Lasix drip. 5. Right lower extremity cellulitis and Enterococcus UTI on antibiotics. ID following. 6. Hypervolemic hyponatremia. Stable. Plan: Repeat hemodialysis in a.m. resume IV Lasix Continue pressors continue antibiotics Repeat labs in a.m.
--- NOTE | 2024-07-08 13:03 | P.PN ---
Subjective Progress Note Date: 07/08/24 Principal diagnosis: Acute on chronic right-sided congestive heart failure with chronic hypotension This is a 78-year-old male patient with massive fluid overload, ongoing diffic ulty with chronic kidney failure as the patient has developed an acute on top of chronic renal disease with extensive third spacing and anasarca and possibly a component of cardiorenal syndrome. 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 Baseline creatinine is around 1.5 back in March 2024. The patient presented to us with volume overload, acute on top of chronic diastolic heart failure with moderate mitral regurgitation. Patient also was diagnosed having an Enterococcus urinary tract infection currently on IV Unasyn. Initial rate, attempts to diurese this patient with Lasix have failed due to ongoing hypotension. The patient was started on midodrine 10 mg p.o. 4 times daily. Subsequently, I was asked to transfer this patient to the ICU for hemodynamic support and pressor use as the patient was going to be started on Lasix 5 mg infusion in combination with Zaroxolyn 5 mg p.o. daily. Based on that, the patient was transferred to the ICU. Lasix s drip was started and the patient will be started also on norepinephrine for blood pressure support. He is currently awake and alert. Following commands. He is on oxygen at 2 L/min nasal cannula. His chest x-ray showing small bilateral pleural effusion and this is less x-ray that was done on 06/26/2024. Patient was evaluated today on 07/03/24, remains in the ICU, he was seen by Dr. Jp nance on consultation yesterday, he was placed on Lasix drip at 5 mg/h, making about 50 to 75 cc of urine per hour. Blood pressure is marginal he is requiring norepinephrine at 0.06 mcg/kg/min. Patient is not complaining of shortness of breath, he is on 2 L nasal cannula, he seems to be extremely swollen edematous and has anasarca. Nonetheless the patient is feeling better compared to yesterday. And seemsto be responding to the Lasix drip. WBC count is 8.4 hemoglobin 12.2 electrolytes are normal BUN is 92 creatinine 3.53., Relatively unchanged compared to yesterday.Patient's baseline creatinine on 06/26 was 2.19. Patient is receiving Unasyn for what seems to be acute urinary tract infection secondary to Enterococcus. Faecalis. Patient was evaluated today on 07/04/2024, remains in the ICU remains on Lasix drip and dose has been increased to 10 mg/h. Patient is requiring norepinephrine at 0.07 mcg/kg/min he is also on IV fluid at KVO. Antibiotics cooley he is on Unasyn for his UTI, and is also on Eliquis. Patient tells me that he is feeling better, breathing easier, and he continues to respond to Lasix but urine output did not improve much by increasing the dose of Lasix., WBC is 8.4 hemoglobin 11.9 basic metabolic profile is normal bicarb is 27 BUN is 95 creatinine 3.77 Gradually rising. His renal status is being addressed and followed by nephrology chest x-ray showed evidence of cardiomegaly and pulmonary vascular congestion. Patient remains on 2 L nasal cannula, and he is O2 saturation is 97%. Blood pressure is marginal, his mean arterial pressure is 6 8, patient is requiring norepinephrine Patient today on 07/05/2024, patient is not doing too great today. Patient is getting worse, he is developing worsening hypotension and requiring now higher doses of norepinephrine and higher doses of vasopressin. Patient required lines including central line and arterial line, and these were done today. Urine output remains about 35 to 40 cc/h, in spite of Lasix at 10 mg/h. His renal functioning is getting worse creatinine is up to 3.9 today. Again the patient is requiring norepinephrine and we have added vasopressin, patient seems to be developing acute kidney injury with ATN and hypotension as well as cardiorenal syndrome. Nephrology is considering to proceed with renal replacement therapy since the patient continues to remain volume overloaded. And urine output is not that great. His creatinine baseline in March was 1.5. Looking at his e chocardiogram, patient has chronic diastolic congestive heart failure with moderate mitral regurgitation, and severe pulmonary hypertension. Patient is also receiving antibiotics for his right lower extremity cellulitis, in addition he has Enterococcus urinary tract infection addressed by infectious disease on the case.WBC count is 7.1 hemoglobin is 11.1 basic metabolic profile is normal bicarb is 23 BUN is 101 creatinine 3.94. Chest x-ray is showing worsening pleural effusion and pulmonary edema Reevaluate today on 07/06/2024, patient remains in the ICU, still on pressors requiring norepinephrine at 0.24 mcg/kg/min, patient did not require vasopressin yesterday. Still on midodrine. A right femoral dialysis catheter was placed yesterday by vascular surgery. Patient is supposed to be started on hemodialysis today. Clinically today, he seems to be feeling better compared to yesterday.Denies any cough wheezing or shortness of breath, patient feels generally weak. WBC count is 7.9 hemoglobin 11.8 electrolytes are normal BUN is 102 creatinine 4.31 patient remains on Lasix drip at 10 mg/h, and the plan is to hemodialyze today Patient was evaluated today on 07/07/2024, patient remains in the ICU on 2 L nasal cannula patient underwent hemodialysis yesterday and 2 L were removed. His BUN is 90 creatinine 4.13. Remains on Lasix drip at 10 mg/h he is still requiring norepinephrine at 0.21 mcg/kg/min, blood pressure remains marginal at best. Patient is still covered with Unasyn still on Eliquis, patient was placed on Lopressor at 100 mg p.o. or twice daily by cardiology his echocardiogram showed significant valvular heart disease, pulmonary hypertension, ejection fraction is 50 to 55%. Patient is complaining today of some bloating and abdominal discomfort, but no nausea no vomiting. No significant pain. WBC count today is 8.2 hemoglobin 11.3 electrolytes are normal BUN is 90 creatinine 4.13, chest x-ray showed mild pulmonary vascular congestion Patient was evaluated today on 07/08/2024, patient remains in the ICU still requiring pressors, he is on norepinephrine at 0.22 mcg/kg/min blood pressure remains marginal, patient is intermittently getting hemodialysis, remains on multiple cardiac meds but he is off Lasix drip at this point. Pulmonary cooley he is on 2 L nasal cannula, does not seem to be in distress. Chest x-ray today showed minimal right basilar atelectasis, no evidence of pulmonary edema. Apparently the patient did not tolerate hemodialysis treatment yesterday well, because of low blood pressure. WBC count is 9.3 hemoglobin 11.4 basic metabolic profile is normal BUN is 82 creatinine 3.49 Objective - Vital Signs Vital signs: Vital Signs Temp 98.2 F 07/08/24 08:00 Pulse 94 07/08/24 11:45 Resp 16 07/08/24 11:45 BP 82/54 07/08/24 11:45 Pulse Ox 96 07/08/24 11:45 FiO2 21 07/08/24 01:04 Intake & Output 07/07/24 07/08/24 07/08/24 18:59 06:59 18:59 Intake Total 973.138 403.618 93.911 Output Total 2770 765 125 Balance -1796.862 -361.382 -31.089 Weight 178.035 kg Intake: IV 156 169 65 KVO 0.9 NS 120 130 50 pressure bag 36 39 15 Intake, IV Titration 317.138 234.618 28.911 Amount Furosemide 100 mg In 80.667 Sodium Chloride 0.9% 90 ml @ 10 MG/HR 10 mls/hr IV .Q10H [facility] Rx#: [id number] Norepinephrine 32 mg In 236.471 234.618 28.911 Sodium Chloride 0.9% 218 ml @ 0.03 MCG/KG/MIN 2.63 mls/hr IV .Q24H [facility] Rx#: [id number] Hemodialysis 500 Output: Urine 270 765 125 Hemodialysis 1500 Hemodialysis Net Amount 1000 Other: Voiding Method Indwelling Catheter Indwelling Catheter Indwelling Catheter ABP, PAP, CO, CI - Last Documented Arterial Blood Pressure 102/50 - Exam General: Revealed a 78-year-old white male morbidly obese on 2 L nasal cannula Head: Atraumatic, normocephalic Neck positive jugular venous distension, thyromegaly, or carotid bruits. Carotid upstrokes are brisk bilaterally. Lungs: Good breath sound bilaterally slightly diminished at the bases only Cardiac: Distant S1-S2, no S3 gallop, no murmur. Abdominal: Morbidly obese soft nontender no megaly positive abdominal wall edema Extremities trace of + bipedal edema femoral and pedal pulses are normal. Neurologically, alert oriented x 3 no gross focal deficits Psychiatric: Normal mood affect and no mental status examination. Skin: Decreased left leg swelling, redness, no open wounds or any drainage - Labs CBC & Chem 7: 07/08/24 04:20 07/08/24 04:20 Labs: Abnormal Lab Results - Last 24 Hours (Table) 07/08/24 07/08/24 Range/Units 04:20 04:20 RBC 3.22 L (4.30-5.90) m/uL Hgb 11.4 L (13.0-17.5) gm/dL Hct 33.7 L (39.0-53.0) % MCV 104.7 H (80.0-100.0) fL MCH 35.4 H (25.0-35.0) pg RDW 18.3 H (11.5-15.5) % Plt Count 136 L (150-450) k/uL Lymphocytes # 0.8 L (1.0-4.8) k/uL Macrocytosis Marked A Sodium 133 L (137-145) mmol/L BUN 82 H (9-20) mg/dL Creatinine 3.49 H (0.66-1.25) mg/dL Glucose 103 H (74-99) mg/dL Assessment and Plan Assessment: Impression: Acute on chronic right-sided congestive heart failure with hypotension, requiring pressors remains on norepinephrine Acute on chronic stage IIIb kidney disease with massive volume overload Hyperlipidemia Chronic atrial fibrillation, maintained on anticoagulation with Eliquis Enterococcus urinary tract infection currently on IV Unasyn. Severe pulmonary hypertension Morbid obesity Gout History of obstructive sleep apnea, not tolerant to CPAP therapy Previous history of WPW and SVT Osteoarthritis Previous history of DVT of lower extremities Glucoma Plan: Patient will remain in the ICU as long as he is requiring pressors Continue norepinephrine Continue hemodialysis Continue oxygen and titrate accordingly Now off Lasix drip Continue midodrine Continue anticoagulation with Eliquis CVP monitor to be placed today. Via his left subclavian central line We will continue to follow Time with Patient: Less than 30
--- NOTE | 2024-07-08 13:48 | P.PN ---
Subjective Progress Note Date: 07/08/24 Principal diagnosis: Reason for follow-up is left leg cellulitis Patient is a 78-year-old male with a past medical history significant for atrial fibrillation hypertension hyperlipidemia osteoarthritis sleep apnea presenting to the hospital for evaluation of weakness and fall patient has been diagnosed with a left lower extremity cellulitis prompted this consultation. On today's evaluation that is 07/08/2024, Patient is afebrile this morning patient denies having any chest pain shortness of breath or cough, the patient is currently on 2 L current oxygen patient denies any abdominal pain no diarrhea no nausea no vomiting, denies pain to the lower extremity. Patient white count is 9.3, creatinine 3.49 Objective - Vital Signs Vital signs: Vital Signs Temp 98.2 F 07/08/24 08:00 Pulse 100 07/08/24 09:00 Resp 19 07/08/24 09:00 BP 82/54 07/07/24 19:00 Pulse Ox 95 07/08/24 09:00 FiO2 21 07/08/24 01:04 Intake & Output 07/07/24 07/08/24 07/08/24 18:59 06:59 18:59 Intake Total 973.138 403.618 54.911 Output Total 2770 765 60 Balance -1796.862 -361.382 -5.089 Weight 178.035 kg Intake: IV 156 169 26 KVO 0.9 NS 120 130 20 pressure bag 36 39 6 Intake, IV Titration 317.138 234.618 28.911 Amount Furosemide 100 mg In 80.667 Sodium Chloride 0.9% 90 ml @ 10 MG/HR 10 mls/hr IV .Q10H [facility] Rx#: [id number] Norepinephrine 32 mg In 236.471 234.618 28.911 Sodium Chloride 0.9% 218 ml @ 0.03 MCG/KG/MIN 2.63 mls/hr IV .Q24H [facility] Rx#: [id number] Hemodialysis 500 Output: Urine 270 765 60 Hemodialysis 1500 Hemodialysis Net Amount 1000 Other: Voiding Method Indwelling Catheter Indwelling Catheter Indwelling Catheter ABP, PAP, CO, CI - Last Documented Arterial Blood Pressure 102/45 - Exam GENERAL DESCRIPTION: An elderly male lying in bed in no distress RESPIRATORY SYSTEM: Unlabored breathing , decreased breath sounds at bases HEART: S1 S2 regular rate and rhythm , ABDOMEN: Soft , no tenderness EXTREMITIES: Left leg swelling redness slightly decreased no open wound or any drainage - Labs CBC & Chem 7: 07/08/24 04:20 07/08/24 04:20 Labs: Abnormal Lab Results - Last 24 Hours (Table) 07/08/24 07/08/24 Range/Units 04:20 04:20 RBC 3.22 L (4.30-5.90) m/uL Hgb 11.4 L (13.0-17.5) gm/dL Hct 33.7 L (39.0-53.0) % MCV 104.7 H (80.0-100.0) fL MCH 35.4 H (25.0-35.0) pg RDW 18.3 H (11.5-15.5) % Plt Count 136 L (150-450) k/uL Lymphocytes # 0.8 L (1.0-4.8) k/uL Macrocytosis Marked A Sodium 133 L (137-145) mmol/L BUN 82 H (9-20) mg/dL Creatinine 3.49 H (0.66-1.25) mg/dL Glucose 103 H (74-99) mg/dL Assessment and Plan (1) Left leg cellulitis Current Visit: Yes Status: Acute Code(s): L03.116 - CELLULITIS OF LEFT LOWER LIMB SNOMED Code(s): 78761142957470892 Plan: 1patient presented to hospital with generalized weakness and falls in this patient who did have chronic swelling to the lower extremity now with worsening swelling redness to the left leg concerning for cellulitis likely streptococcal disease with diffuse swelling and redness no evidence of any purulence 2-patient is afebrile white count is normal patient has received adequate antibiotic therapy for underlying cellulitis and a question of possible UTI patient antibiotic discontinued as of 07/07/2024 and will monitor closely off antibiotic therapy Dictation was produced using [employer] dictation software. please excuse any grammatical, word or spelling errors. Time with Patient: Less than 30
--- NOTE | 2024-07-08 14:01 | P.PN ---
Subjective Progress Note Date: 07/08/24 Acute on chronic right-sided congestive heart failure with chronic hypotension Patient is a 78-year-old male was admitted to hospital due to fluid overload and history of chronic kidney disease acute on chronic due to mild cardiorenal syndrome., Baseline creatinine level 1.5. Patient was diagnosed with Enterococcus urinary tract infection currently on Unasyn. Unable to diurese due to hypotension. Patient was started on midodrine and subsequently transferred to MICU due to hypotension. He was started on Lasix drip and Zaroxolyn p.o. and also was requiring norepinephrine for pressor support. 07/06/2024 Patient remains in MICU. Awake alert and oriented x 3. Currently lying in the bed. Requiring pressor support with norepinephrine and is also being continued on midodrine. Nephrology is planning for hemodialysis and right femoral Jaron catheter was placed by vascular surgery. Otherwise patient denied any chest pain. No worsening shortness of breath. Chest x-ray showed cardiomegaly, pulmonary vascular congestion and bilateral pleural effusions. Correlate with BNP for CHF. Laboratory data showed WBC 7.9 hemoglobin 11.8 and platelets 198, sodium 135 potassium 4.3 chloride 99 bicarb is 26, BUN 102 and creatinine 4.31 and calcium 8.8. 07/07/2024 Patient is in MICU. Awake alert and oriented x 3. Currently requiring 2 L oxygen via nasal cannula. Chest x-ray showed mild pulmonary vascular congestion. Left PICC in the appropriate position. Patient was initiated on hemodialysis on 07/06/2024 with 2 L ultrafiltration. Patient is maintained on Lasix drip and is also requiring norepinephrine for pressor support. Otherwise denied any abdominal pain. No nausea or vomiting. Did not have any bowel meant last few days. Otherwise patient is afebrile. No cough or sputum production. Laboratory data showed WBC 8.2 hemoglobin 11.3 and platelets 150 sodium 135 potassium 4.3 chloride 100 bicarb is 26 BUN 19 creatinine 4.13 and blood sugar 105 and calcium 8.7. Patient is on Unasyn for Enterococcus faecalis UTI. 07/08. Patient seen and examined. Blood work done this morning showed WBC 9.3, hemoglobin 12.4, platelet count 136, sodium 133, potassium 4.2, BUN 82, creatinine 3.49. States he feels better. Started on dialysis on 07/06. REVIEW OF SYSTEMS: CONSTITUTIONAL: No fever, no malaise,. CARDIOVASCULAR: No chest pain, no palpitations, no syncope. PULMONARY: No shortness of breath, no cough, GASTROINTESTINAL: No diarrhea, no nausea, no vomiting, no abdominal pain. NEUROLOGICAL: No headaches, no weakness, PHYSICAL EXAMINATION: GENERAL: The patient is alert and oriented x3, not in any acute distress. Well developed, well nourished. HEENT: Pupils are round and equally reacting to light. EOMI. No scleral icterus. No conjunctival pallor. Normocephalic, atraumatic. No pharyngeal erythema. No thyromegaly. CARDIOVASCULAR: S1 and S2 present. No murmurs, rubs, or gallops. PULMONARY: Chest is clear to auscultation, no wheezing or crackles. ABDOMEN: Soft, nontender, nondistended, normoactive bowel sounds. No palpable organomegaly. MUSCULOSKELETAL: No joint swelling or deformity. EXTREMITIES: No cyanosis, clubbing, or pedal edema. NEUROLOGICAL: Gross neurological examination did not reveal any focal deficits. SKIN: No rashes. Assessment and plan Acute on chronic HFpEF mainly due to right heart failure. Acute on chronic kidney disease stage IIIb with volume overload. Possible cardiorenal. Requiring hemodialysis initiated on 07/06/2024 Permanent atrial fibrillation on anticoagulation with Coumadin transition to Eliquis Supratherapeutic INR level on admission Valvular heart disease with moderate MR, moderate to severe pulmonary hypertension Obstructive sleep apnea not tolerating CPAP History of WPW and SVT Hyperlipidemia Hypertension History of DVT Dilated thoracic aorta History of gout Osteoarthritis Enterococcus urinary tract infection currently on Unasyn Morbid obesity BMI 53.0 Monitor vital signs Monitor CBC Monitor CMP Continue telemetry monitoring Strict I's and O's, daily weights Continue Levophed Continue midodrine Continue Eliquis Completed course of antibiotics Continue dialysis per nephrology Nephrology following ID following Labs and medication were reviewed.. Continue same treatment. Continue with symptomatic treatment. Resume home medication. Monitor labs and vitals. DVT and GI prophylaxis. Further recommendations as per clinical course of the patient Dictation was produced using [employer] dictation software. please excuse any grammatical, word or spelling errors. Objective - Vital Signs Vital signs: Vital Signs Temp 98.2 F 07/08/24 08:00 Pulse 94 07/08/24 11:45 Resp 16 10/05/24 11:45 BP 82/54 07/08/24 11:45 Pulse Ox 96 07/08/24 11:45 FiO2 21 07/08/24 01:04 Intake & Output 07/07/24 07/08/24 07/08/24 18:59 06:59 18:59 Intake Total 973.138 403.618 93.911 Output Total 2770 765 125 Balance -1796.862 -361.382 -31.089 Weight 178.035 kg Intake: IV 156 169 65 KVO 0.9 NS 120 130 50 pressure bag 36 39 15 Intake, IV Titration 317.138 234.618 28.911 Amount Furosemide 100 mg In 80.667 Sodium Chloride 0.9% 90 ml @ 10 MG/HR 10 mls/hr IV .Q10H [facility] Rx#: [id number] Norepinephrine 32 mg In 236.471 234.618 28.911 Sodium Chloride 0.9% 218 ml @ 0.03 MCG/KG/MIN 2.63 mls/hr IV .Q24H [facility] Rx#: [id number] Hemodialysis 500 Output: Urine 270 765 125 Hemodialysis 1500 Hemodialysis Net Amount 1000 Other: Voiding Method Indwelling Catheter Indwelling Catheter Indwelling Catheter ABP, PAP, CO, CI - Last Documented Arterial Blood Pressure 102/50 - Labs CBC & Chem 7: 07/08/24 04:20 07/08/24 04:20 Labs: Abnormal Lab Results - Last 24 Hours (Table) 07/08/24 07/08/24 Range/Units 04:20 04:20 RBC 3.22 L (4.30-5.90) m/uL Hgb 11.4 L (13.0-17.5) gm/dL Hct 33.7 L (39.0-53.0) % MCV 104.7 H (80.0-100.0) fL MCH 35.4 H (25.0-35.0) pg RDW 18.3 H (11.5-15.5) % Plt Count 136 L (150-450) k/uL Lymphocytes # 0.8 L (1.0-4.8) k/uL Macrocytosis Marked A Sodium 133 L (137-145) mmol/L BUN 82 H (9-20) mg/dL Creatinine 3.49 H (0.66-1.25) mg/dL Glucose 103 H (74-99) mg/dL
[2024-07-09 04:45] LABS: Anisocytosis Slight; Basophils % (A) 1 %; Eosinophils # (A) 0.4 k/uL (0-0.7); Eosinophils % (A) 5 %; HCT 32.7 % (39.0-53.0); HGB 11.2 gm/dL (13.0-17.5); Lymphocytes # (A) 0.8 k/uL (1.0-4.8); Lymphocytes % (A) 10 %; MCH 35.7 pg (25.0-35.0); MCHC 34.2 g/dL (31.0-37.0); MCV 104.6 fL (80.0-100.0); Mean Platelet Volume 9.3; Monocytes # (A) 0.8 k/uL (0-1.0); Monocytes % (A) 9 %; Neutrophils # (A) 6.2 k/uL (1.3-7.7); Neutrophils % (A) 74 %; Platelet Count 133 k/uL (150-450); RBC 3.13 m/uL (4.30-5.90); RDW 18.2 % (11.5-15.5); WBC 8.4 k/uL (3.8-10.6)
[2024-07-09 05:12] LABS: African American GFR (CKD) 23 (>60 ml/min/1.73 sqM); Anion Gap 6 mmol/L; Blood Urea Nitrogen 74 mg/dL (9-20); Calcium 8.5 mg/dL (8.4-10.2); Carbon Dioxide 29 mmol/L (22-30); Chloride 98 mmol/L (98-107); Glucose 101 mg/dL (74-99); Magnesium 2.1 mg/dL (1.6-2.3); Non-African American GFR(CKD) 20 (>60 ml/min/1.73 sqM); Potassium 4.1 mmol/L (3.5-5.1); Sodium 133 mmol/L (137-145)
[2024-07-09 05:38] LABS: Macrocytosis Marked
--- NOTE | 2024-07-09 09:57 | XR ---
EXAMINATION TYPE: XR chest 1V portable DATE OF EXAM: 07/09/2024 COMPARISON: 07/08/2024 INDICATION: Fluid overload TECHNIQUE: Single frontal view of the chest is obtained. FINDINGS: The heart size is mildly prominent. The pulmonary vasculature is normal. Right lower lobe infiltrate is present. A small right pleural effusion may be present. Finding is sim ilar comparison. IMPRESSION: 1. Mild right pleural effusion 2. Cardiomegaly. [facility], Workstation: [facility], 07/09/2024 9:54 AM
--- NOTE | 2024-07-09 10:48 | P.PN ---
Subjective Patient is seen for follow-up for acute kidney injury and chronic kidney disease. Started on hemodialysis on 07/06/2024 due to worsening volume status. off of Lasix drip Urine output at 30-40 mL/h Blood pressure remains low and patient is maintained on levo fed. Status post hemodialysis yesterday with UF of 2 L. Patient will be scheduled for dialysis again in a.m. Objective - Vital Signs Vital signs: Vital Signs Temp 97.7 F 07/09/24 08:00 Pulse 101 H 07/09/24 09:45 Resp 23 07/09/24 09:45 BP 82/54 07/09/24 09:45 Pulse Ox 92 L 07/09/24 09:45 FiO2 21 07/09/24 04:59 Intake & Output 07/08/24 07/09/24 07/09/24 18:59 06:59 18:59 Intake Total 871.911 714.989 50.787 Output Total 300 4760 Balance 571.911 -4045.011 50.787 Weight 178.1 kg Intake: IV 143 169 KVO 0.9 NS 110 130 pressure bag 33 39 Intake, IV Titration 28.911 145.989 50.787 Amount Norepinephrine 32 mg In 28.911 145.989 50.787 Sodium Chloride 0.9% 218 ml @ 0.03 MCG/KG/MIN 2.63 mls/hr IV .Q24H [facility] Rx#: [id number] Oral 700 Hemodialysis 400 Output: Urine 300 360 Hemodialysis 2400 Hemodialysis Net Amount 2000 Other: Voiding Method Indwelling Catheter Indwelling Catheter Indwelling Catheter ABP, PAP, CO, CI - Last Documented Arterial Blood Pressure 105/45 - Exam Patient is awake, comfortable, no acute distress. Examination of the heart S1 and S2 Examination of the lungs decreased breath sounds at the bases Abdomen is soft obese nontender Examination of lower extremities shows edema 1+ bilaterally, improving LAB[employer] RELATIONS SPECIALIST exam grossly intact - Labs CBC & Chem 7: 07/09/24 04:20 07/09/24 04:20 Labs: Abnormal Lab Results - Last 24 Hours (Table) 07/09/24 07/09/24 Range/Units 04:20 04:20 RBC 3.13 L (4.30-5.90) m/uL Hgb 11.2 L (13.0-17.5) gm/dL Hct 32.7 L (39.0-53.0) % MCV 104.6 H (80.0-100.0) fL MCH 35.7 H (25.0-35.0) pg RDW 18.2 H (11.5-15.5) % Plt Count 133 L (150-450) k/uL Lymphocytes # 0.8 L (1.0-4.8) k/uL Macrocytosis Marked A Sodium 133 L (137-145) mmol/L BUN 74 H (9-20) mg/dL Creatinine 2.95 H (0.66-1.25) mg/dL Glucose 101 H (74-99) mg/dL Assessment and Plan Assessment: 1. Acute kidney injury secondary to ATN secondary to hypotension and cardiorenal syndrome. Started on hemodialysis on 07/06/2024 due to worsening renal function and persistent volume overload. Patient did not tolerate initial treatment well due to significant hypotension, however we were able to get 2 L off with dialysis yesterday. No hydronephrosis noted on ultrasound. Trace protein on UA. 2. 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 Creatinine 1.5 in March 2024. 3. Acute on chronic diastolic CHF and moderate mitral consultation, severe tricuspid regurgitation and pulmonary hypertension. 4. Volume overload. Maintained on Lasix drip. 5. Right lower extremity cellulitis and Enterococcus UTI on antibiotics. ID f vera. 6. Hypervolemic hyponatremia. Stable. Plan: Repeat hemodialysis in a.m. resume IV Lasix Continue pressors continue antibiotics Repeat labs in a.m.
[2024-07-09] MEDS: FUROSEMIDE 10 MG/ML 10 ML VIAL IV SCH (11:22)
--- NOTE | 2024-07-09 11:25 | P.PN ---
Subjective Progress Note Date: 07/09/24 HISTORY OF PRESENTING ILLNESS This is a 78-year-old patient of Dr. Deleon with past medical history of morbid obesity, permanent atrial fibrillation on Coumadin, hypertension, dyslipidemia, history of DVT, dilated thoracic aorta and valvular heart disease, pulmonary hypertension. We have been asked to evaluate the patient for heart failure. Patient gives history that he had a fall at home. He states his knee gave out on him. He complains of shortness of breath. He feels poorly in general. He is not very active at home. He denies having any fever. No history of smoking. No palpitations. Edema which she states is at his baseline. No blood in his stool or urine. No history of stroke or seizure. 07/01/2024 Was seen and examined resting comfortably in bed. Blood pressure is improved but remains on the low side. He is being followed by nephrology who has started a Lasix drip at 10 mL/h. They have increased metolazone to 5 mg p.o. daily and discontinued Farxiga due to current infection. Overall patient continues to complain of shortness of breath. Continues to complain of orthopnea but improving. Continues to complain of significant lower extremity edema labs this morning showed a creatinine of 2.92. INR 2.0. 07/02/2024 The patient was seen and examined resting comfortably in bed. He is overall feeling his breathing is a bit better. Continues to have significant edema. Continues to be followed by nephrology with adjustments made to his diuretics as well as the addition of albumin. Renal function is worse with a creatinine of 3.54. Blood pressure remains low. 07/03 Patient seen and examined. Patient remains on metoprolol 100 twice a day with borderline blood pressures and patient has been on norepinephrine as well as a Lasix drip at 5 and Zaroxolyn. Urine output approximately 50 mL/h. Denies a chest pain or pressure. Still significant large from edema. Creatinine relatively stable at 3.5. 07/04 patient seen and examined. Patient's echo reviewed and does have severe right ventricular dilation, significantly increased right ventricular pressures with some right ventricular hypokinesis and atypical septal motion which appears consistent with RV overload. There is additional mild pericardial effusion however no obvious Cannot physiology. Patient continues on the IV Lasix drip at 10 with addition of Zaroxolyn with marginal urine outputs and not much negative urine output. Denies any chest pain or pressure. Still remains on metoprolol. Blood pressures borderline and has been on low-dose norepinephrine. 07/05 Patient seen and examined. Hemoglobin 11.1, BUN 101, creatinine 3.9. Still having urine output of approximately 50 mL per hour. Metoprolol was decreased and heart rates closer to 100 in attempt to increase cardiac output, decrease negative inotrope. 07/06 patient seen and examined. Patient had dialysis catheter placed and undergoing dialysis for the first time today with 2 L output. Remains on norepinephrine. Denies any chest pain or pressure. 07/07 Patient seen and examined. Patient underwent dialysis yesterday with approximately 2 L output. Hemoglobin stable 11.3, BUN 90, creatinine 4.1. He does state he feels better today. Heart rates have been up in the 90-110 range fairly consistently. 07/08 Patient seen and examined in the intensive care unit. He underwent HD yesterday with 1 L of fluid removed. His urine output has been 25 to 35 cc/h. He does complain of increasing difficulty in breathing today. Heart rate is running between 90 and 105, blood pressure 104/45, pulse ox 95% on 2 L nasal cannula. Repeat blood work reveals hemoglobin 11.4. BUN 32 creatinine 3.49, sodium 133, potassium 4.2. Repeat chest x-ray reveals thyromegaly, right basilar atelectasis. 07/09 Patient is seen and examined in the intensive care unit. Last evening, patient had hemodialysis with 2 L removed. He is on Levophed which was decreased. Blood pressure 82/54, heart rate 101. Repeat blood work reveals hemoglobin 11.2, platelet count 133. Renal function is improving with BUN 74, creatinine 2.95. Sodium is 133, potassium 4.1. Repeat chest x-ray reveals mild right pleural effusion, cardiomegaly. PHYSICAL EXAMINATION Vital signs reviewed. CONSTITUTIONAL: No apparent distress. HEENT: Head is normocephalic. Pupils are equal, round. Sclerae anicteric. Mucous membranes of the mouth are moist. No JVD. No carotid bruit. CHEST EXAMINATION: Lungs are clear to auscultation. No chest wall tenderness is noted on palpation or with deep breathing. HEART EXAMINATION: Regular rate and rhythm. S1, S2 heard. No murmurs, gallops or rub. ABDOMEN: Soft, nontender. Positive bowel sounds. EXTREMITIES: 2+ peripheral pulses, 2+ lower extremity edema and no calf tenderness. NEUROLOGIC EXAMINATION: Patient is awake, alert and oriented x3. ASSESSMENT Generalized weakness and fall Permanent atrial fibrillation transitioned to Eliquis Acute on chronic diastolic heart failure, mainly right sided Supratherapeutic INR Acute kidney injury started on HD 07/06 Chronic kidney disease stage IIIb Hypertension Dyslipidemia History of DVT Dilated thoracic aorta Valvular heart disease with moderate MR, moderate to severe pulmonary hypertension small pericardial effusion Thrombocytopenia Plan: Patient still significantly volume overloaded and monitor response of hemodialysis. Patient is on IV Lasix 60 mg every 12 hours per nephrology Continue metoprolol 100 twice a day Monitor patient's response to dialysis, monitor BALAJI,, daily weights, electrolytes and renal function. Prognosis guarded. Nurse practitioner note has been reviewed, I agree with documented findings and plan of care. Patient was seen and examined. Objective - Vital Signs Vital signs: Vital Signs Temp 97.6 F 07/09/24 01:05 Pulse 89 07/09/24 07:00 Resp 16 07/09/24 07:00 BP 104/51 07/09/24 01:05 Pulse Ox 95 07/09/24 07:00 FiO2 21 07/09/24 04:59 Intake & Output 07/08/24 07/09/24 07/09/24 18:59 06:59 18:59 Intake Total 871.911 714.989 34.628 Output Total 300 4760 Balance 571.911 -4045.011 34.628 Weight 178.1 kg Intake: IV 143 169 KVO 0.9 NS 110 130 pressure bag 33 39 Intake, IV Titration 28.911 145.989 34.628 Amount Norepinephrine 32 mg In 28.911 145.989 34.628 Sodium Chloride 0.9% 218 ml @ 0.03 MCG/KG/MIN 2.63 mls/hr IV .Q24H [facility] Rx#: [id number] Oral 700 Hemodialysis 400 Output: Urine 300 360 Hemodialysis 2400 Hemodialysis Net Amount 1999 Other: Voiding Method Indwelling Catheter Indwelling Catheter Indwelling Catheter ABP, PAP, CO, CI - Last Documented Arterial Blood Pressure 108/50 - Labs CBC & Chem 7: 07/09/24 04:20 07/09/24 04:20 Labs: Abnormal Lab Results - Last 24 Hours (Table) 07/09/24 07/09/24 Range/Units 04:20 04:20 RBC 3.13 L (4.30-5.90) m/uL Hgb 11.2 L (13.0-17.5) gm/dL Hct 32.7 L (39.0-53.0) % MCV 104.6 H (80.0-100.0) fL MCH 35.7 H (25.0-35.0) pg RDW 18.2 H (11.5-15.5) % Plt Count 133 L (150-450) k/uL Lymphocytes # 0.8 L (1.0-4.8) k/uL Macrocytosis Marked A Sodium 133 L (137-145) mmol/L BUN 74 H (9-20) mg/dL Creatinine 2.95 H (0.66-1.25) mg/dL Glucose 101 H (74-99) mg/dL
--- NOTE | 2024-07-09 14:05 | P.PN ---
Subjective Progress Note Date: 07/09/24 Principal diagnosis: Acute on chronic right-sided congestive heart failure with chronic hypotension This is a 78-year-old male patient with massive fluid overload, ongoing diffic ulty with chronic kidney failure as the patient has developed an acute on top of chronic renal disease with extensive third spacing and anasarca and possibly a component of cardiorenal syndrome. 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 Baseline creatinine is around 1.5 back in March 2024. The patient presented to us with volume overload, acute on top of chronic diastolic heart failure with moderate mitral regurgitation. Patient also was diagnosed having an Enterococcus urinary tract infection currently on IV Unasyn. Initial rate, attempts to diurese this patient with Lasix have failed due to ongoing hypotension. The patient was started on midodrine 10 mg p.o. 4 times daily. Subsequently, I was asked to transfer this patient to the ICU for hemodynamic support and pressor use as the patient was going to be started on Lasix 5 mg infusion in combination with Zaroxolyn 5 mg p.o. daily. Based on that, the patient was transferred to the ICU. Lasix s drip was started and the patient will be started also on norepinephrine for blood pressure support. He is currently awake and alert. Following commands. He is on oxygen at 2 L/min nasal cannula. His chest x-ray showing small bilateral pleural effusion and this is less x-ray that was done on 06/26/2024. Patient was evaluated today on 07/03/24, remains in the ICU, he was seen by Dr. Jp nance on consultation yesterday, he was placed on Lasix drip at 5 mg/h, making about 50 to 75 cc of urine per hour. Blood pressure is marginal he is requiring norepinephrine at 0.06 mcg/kg/min. Patient is not complaining of shortness of breath, he is on 2 L nasal cannula, he seems to be extremely swollen edematous and has anasarca. Nonetheless the patient is feeling better compared to yesterday. And seemsto be responding to the Lasix drip. WBC count is 8.4 hemoglobin 12.2 electrolytes are normal BUN is 92 creatinine 3.53., Relatively unchanged compared to yesterday.Patient's baseline creatinine on 06/26 was 2.19. Patient is receiving Unasyn for what seems to be acute urinary tract infection secondary to Enterococcus. Faecalis. Patient was evaluated today on 07/04/2024, remains in the ICU remains on Lasix drip and dose has been increased to 10 mg/h. Patient is requiring norepinephrine at 0.07 mcg/kg/min he is also on IV fluid at KVO. Antibiotics cooley he is on Unasyn for his UTI, and is also on Eliquis. Patient tells me that he is feeling better, breathing easier, and he continues to respond to Lasix but urine output did not improve much by increasing the dose of Lasix., WBC is 8.4 hemoglobin 11.9 basic metabolic profile is normal bicarb is 27 BUN is 95 creatinine 3.77 Gradually rising. His renal status is being addressed and followed by nephrology chest x-ray showed evidence of cardiomegaly and pulmonary vascular congestion. Patient remains on 2 L nasal cannula, and he is O2 saturation is 97%. Blood pressure is marginal, his mean arterial pressure is 6 8, patient is requiring norepinephrine Patient today on 07/05/2024, patient is not doing too great today. Patient is getting worse, he is developing worsening hypotension and requiring now higher doses of norepinephrine and higher doses of vasopressin. Patient required lines including central line and arterial line, and these were done today. Urine output remains about 35 to 40 cc/h, in spite of Lasix at 10 mg/h. His renal functioning is getting worse creatinine is up to 3.9 today. Again the patient is requiring norepinephrine and we have added vasopressin, patient seems to be developing acute kidney injury with ATN and hypotension as well as cardiorenal syndrome. Nephrology is considering to proceed with renal replacement therapy since the patient continues to remain volume overloaded. And urine output is not that great. His creatinine baseline in March was 1.5. Looking at his e chocardiogram, patient has chronic diastolic congestive heart failure with moderate mitral regurgitation, and severe pulmonary hypertension. Patient is also receiving antibiotics for his right lower extremity cellulitis, in addition he has Enterococcus urinary tract infection addressed by infectious disease on the case.WBC count is 7.1 hemoglobin is 11.1 basic metabolic profile is normal bicarb is 23 BUN is 101 creatinine 3.94. Chest x-ray is showing worsening pleural effusion and pulmonary edema Reevaluate today on 07/06/2024, patient remains in the ICU, still on pressors requiring norepinephrine at 0.24 mcg/kg/min, patient did not require vasopressin yesterday. Still on midodrine. A right femoral dialysis catheter was placed yesterday by vascular surgery. Patient is supposed to be started on hemodialysis today. Clinically today, he seems to be feeling better compared to yesterday.Denies any cough wheezing or shortness of breath, patient feels generally weak. WBC count is 7.9 hemoglobin 11.8 electrolytes are normal BUN is 102 creatinine 4.31 patient remains on Lasix drip at 10 mg/h, and the plan is to hemodialyze today Patient was evaluated today on 07/07/2024, patient remains in the ICU on 2 L nasal cannula patient underwent hemodialysis yesterday and 2 L were removed. His BUN is 90 creatinine 4.13. Remains on Lasix drip at 10 mg/h he is still requiring norepinephrine at 0.21 mcg/kg/min, blood pressure remains marginal at best. Patient is still covered with Unasyn still on Eliquis, patient was placed on Lopressor at 100 mg p.o. or twice daily by cardiology his echocardiogram showed significant valvular heart disease, pulmonary hypertension, ejection fraction is 50 to 55%. Patient is complaining today of some bloating and abdominal discomfort, but no nausea no vomiting. No significant pain. WBC count today is 8.2 hemoglobin 11.3 electrolytes are normal BUN is 90 creatinine 4.13, chest x-ray showed mild pulmonary vascular congestion Patient was evaluated today on 07/08/2024, patient remains in the ICU still requiring pressors, he is on norepinephrine at 0.22 mcg/kg/min blood pressure remains marginal, patient is intermittently getting hemodialysis, remains on multiple cardiac meds but he is off Lasix drip at this point. Pulmonary cooley he is on 2 L nasal cannula, does not seem to be in distress. Chest x-ray today showed minimal right basilar atelectasis, no evidence of pulmonary edema. Apparently the patient did not tolerate hemodialysis treatment yesterday well, because of low blood pressure. WBC count is 9.3 hemoglobin 11.4 basic metabolic profile is normal BUN is 82 creatinine 3.49 Patient was seen today on 07/09/2024, patient remains in the ICU, remains on norepinephrine and he is intermittently on hemodialysis. Off Lasix drip. On 3 L nasal cannula, on norepinephrine 0.13 mcg/kg/min on midodrine on IV fluid at KVO. Patient is also on Eliquis. Urine output is about 25 to 40 cc/h. His CVP is 15 patient had 2 L removed by hemodialysis on 07/08 and his CVP today is ranging between 12-15. Pulmonary cooley is not in distress, however his blood pressure remains extremely low requiring pressors hence I cannot move the patient out of the ICU as long as he is on pressors Objective - Vital Signs Vital signs: Vital Signs Temp 97.7 F 07/09/24 08:00 Pulse 95 07/09/24 11:30 Resp 16 07/09/24 11:30 BP 82/54 07/09/24 09:45 Pulse Ox 97 07/09/24 11:30 FiO2 21 07/09/24 04:59 Intake & Output 07/08/24 07/09/24 07/09/24 18:59 06:59 18:59 Intake Total 871.911 714.989 102.787 Output Total 300 4760 100 Balance 571.911 -4045.011 2.787 Weight 178.1 kg Intake: IV 143 169 52 KVO 0.9 NS 110 130 40 pressure bag 33 39 12 Intake, IV Titration 28.911 145.989 50.787 Amount Norepinephrine 32 mg In 28.911 145.989 50.787 Sodium Chloride 0.9% 218 ml @ 0.03 MCG/KG/MIN 2.63 mls/hr IV .Q24H [facility] Rx#: [id number] Oral 700 Hemodialysis 400 Output: Urine 300 360 100 Hemodialysis 2400 Hemodialysis Net Amount 2000 Other: Voiding Method Indwelling Catheter Indwelling Catheter Indwelling Catheter ABP, PAP, CO, CI - Last Documented Arterial Blood Pressure 98/40 - Exam General: Revealed a 78-year-old white male morbidly obese on 3 L nasal cannula Head: Atraumatic, normocephalic Neck positive jugular venous distension, thyromegaly, or carotid bruits. Carotid upstrokes are brisk bilaterally. Lungs: Good breath sound bilaterally slightly diminished at the bases only Cardiac: Distant S1-S2, no S3 gallop, no murmur. Abdominal: Morbidly obese soft nontender no megaly positive abdominal wall edema Extremities trace of + bipedal edema femoral and pedal pulses are normal. Neurologically, alert oriented x 3 no gross focal deficits Psychiatric: Normal mood affect and no mental status examination. Skin: Decreased left leg swelling, redness, no open wounds or any drainage - Labs CBC & Chem 7: 07/09/24 04:20 07/09/24 04:20 Labs: Abnormal Lab Results - Last 24 Hours (Table) 07/09/24 07/09/24 Range/Units 04:20 04:20 RBC 3.13 L (4.30-5.90) m/uL Hgb 11.2 L (13.0-17.5) gm/dL Hct 32.7 L (39.0-53.0) % MCV 104.6 H (80.0-100.0) fL MCH 35.7 H (25.0-35.0) pg RDW 18.2 H (11.5-15.5) % Plt Count 133 L (150-450) k/uL Lymphocytes # 0.8 L (1.0-4.8) k/uL Macrocytosis Marked A Sodium 133 L (137-145) mmol/L BUN 74 H (9-20) mg/dL Creatinine 2.95 H (0.66-1.25) mg/dL Glucose 101 H (74-99) mg/dL Assessment and Plan Assessment: Impression: Acute on chronic right-sided congestive heart failure with hypotension, requiri ng pressors remains on norepinephrine at 0.13 mcg/kg/min Acute on chronic stage IIIb kidney disease with massive volume overload Hyperlipidemia Chronic atrial fibrillation, maintained on anticoagulation with Eliquis Enterococcus urinary tract infection currently on IV Unasyn. Severe pulmonary hypertension Morbid obesity Gout History of obstructive sleep apnea, not tolerant to CPAP therapy Previous history of WPW and SVT Osteoarthritis Previous history of DVT of lower extremities Glucoma Plan: Patient will remain in the ICU as long as he is requiring pressors Continue norepinephrine, titrate accordingly Continue hemodialysis Continue oxygen and titrate accordingly Continue midodrine Continue anticoagulation with Eliquis CVP monitor today is ranging between 12 and 15 We will continue to follow Time with Patient: Less than 30
--- NOTE | 2024-07-09 15:29 | P.PN ---
Subjective Progress Note Date: 07/09/24 Acute on chronic right-sided congestive heart failure with chronic hypotension Patient is a 78-year-old male was admitted to hospital due to fluid overload and history of chronic kidney disease acute on chronic due to mild cardiorenal syndrome., Baseline creatinine level 1.5. Patient was diagnosed with Enterococcus urinary tract infection currently on Unasyn. Unable to diurese due to hypotension. Patient was started on midodrine and subsequently transferred to MICU due to hypotension. He was started on Lasix drip and Zaroxolyn p.o. and also was requiring norepinephrine for pressor support. 07/06/2024 Patient remains in MICU. Awake alert and oriented x 3. Currently lying in the bed. Requiring pressor support with norepinephrine and is also being continued on midodrine. Nephrology is planning for hemodialysis and right femoral Jaron catheter was placed by vascular surgery. Otherwise patient denied any chest pain. No worsening shortness of breath. Chest x-ray showed cardiomegaly, pulmonary vascular congestion and bilateral pleural effusions. Correlate with BNP for CHF. Laboratory data showed WBC 7.9 hemoglobin 11.8 and platelets 198, sodium 135 potassium 4.3 chloride 99 bicarb is 26, BUN 102 and creatinine 4.31 and calcium 8.8. 07/07/2024 Patient is in MICU. Awake alert and oriented x 3. Currently requiring 2 L oxygen via nasal cannula. Chest x-ray showed mild pulmonary vascular congestion. Left PICC in the appropriate position. Patient was initiated on hemodialysis on 07/06/2024 with 2 L ultrafiltration. Patient is maintained on Lasix drip and is also requiring norepinephrine for pressor support. Otherwise denied any abdominal pain. No nausea or vomiting. Did not have any bowel meant last few days. Otherwise patient is afebrile. No cough or sputum production. Laboratory data showed WBC 8.2 hemoglobin 11.3 and platelets 150 sodium 135 potassium 4.3 chloride 100 bicarb is 26 BUN 19 creatinine 4.13 and blood sugar 105 and calcium 8.7. Patient is on Unasyn for Enterococcus faecalis UTI. 07/08. Patient seen and examined. Blood work done this morning showed WBC 9.3, hemoglobin 12.4, platelet count 136, sodium 133, potassium 4.2, BUN 82, creatinine 3.49. States he feels better. Started on dialysis on 07/06. 07/09. Patient seen and examined. Blood work done this morning showed . WBC 8.4, hemoglobin 11.2, platelet count 133, sodium 133, potassium 4.1, BUN 74, creatinine 2.95. States he feels much better. He continues to be on pressors. Swelling of lower extremities is improved REVIEW OF SYSTEMS: CONSTITUTIONAL: No fever, no malaise,. CARDIOVASCULAR: No chest pain, no palpitations, no syncope. PULMONARY: No shortness of breath, no cough, GASTROINTESTINAL: No diarrhea, no nausea, no vomiting, no abdominal pain. NEUROLOGICAL: No headaches, no weakness, PHYSICAL EXAMINATION: GENERAL: The patient is alert and oriented x3, not in any acute distress. Well developed, well nourished. HEENT: Pupils are round and equally reacting to light. EOMI. No scleral icterus. No conjunctival pallor. Normocephalic, atraumatic. No pharyngeal erythema. No thyromegaly. CARDIOVASCULAR: S1 and S2 present. No murmurs, rubs, or gallops. PULMONARY: Chest is clear to auscultation, no wheezing or crackles. ABDOMEN: Soft, nontender, nondistended, normoactive bowel sounds. No palpable organomegaly. MUSCULOSKELETAL: No joint swelling or deformity. EXTREMITIES: No cyanosis, clubbing, or pedal edema. NEUROLOGICAL: Gross neurological examination did not reveal any focal deficits. SKIN: No rashes. Assessment and plan Acute on chronic HFpEF mainly due to right heart failure. Acute on chronic kidney disease stage IIIb with volume overload. Possible cardiorenal. Requiring hemodialysis initiated on 07/06/2024 Permanent atrial fibrillation on anticoagulation with Coumadin transition to Eliquis Supratherapeutic INR level on admission Valvular heart disease with moderate MR, moderate to severe pulmonary hypertension Obstructive sleep apnea not tolerating CPAP History of WPW and SVT Hyperlipidemia Hypertension History of DVT Dilated thoracic aorta History of gout Osteoarthritis Enterococcus urinary tract infection currently on Unasyn Morbid obesity BMI 53.0 Monitor vital signs Monitor CBC Monitor CMP Continue telemetry monitoring Strict I's and O's, daily weights Continue Levophed Continue midodrine Continue Eliquis Completed course of antibiotics Continue dialysis per nephrology Nephrology following ICU following Labs and medication were reviewed.. Continue same treatment. Continue with symptomatic treatment. Resume home medication. Monitor labs and vitals. DVT and GI prophylaxis. Further recommendations as per clinical course of the patient Dictation was produced using dragon dictation software. please excuse any grammatical, word or spelling errors. Objective - Vital Signs Vital signs: Vital Signs Temp 97.7 F 07/09/24 08:00 Pulse 95 07/09/24 11:30 Resp 16 07/09/24 11:30 BP 82/54 07/09/24 09:45 Pulse Ox 97 07/09/24 11:30 FiO2 21 07/09/24 04:59 Intake & Output 07/08/24 07/09/24 07/09/24 18:59 06:59 18:59 Intake Total 871.911 714.989 102.787 Output Total 300 4760 100 Balance 571.911 -4045.011 2.787 Weight 178.1 kg Intake: IV 143 169 52 KVO 0.9 NS 110 130 40 pressure bag 33 39 12 Intake, IV Titration 28.911 145.989 50.787 Amount Norepinephrine 32 mg In 28.911 145.989 50.787 Sodium Chloride 0.9% 218 ml @ 0.03 MCG/KG/MIN 2.63 mls/hr IV .Q24H [facility] Rx#: [id number] Oral 700 Hemodialysis 400 Output: Urine 300 360 100 Hemodialysis 2400 Hemodialysis Net Amount 2000 Other: Voiding Method Indwelling Catheter Indwelling Catheter Indwelling Catheter ABP, PAP, CO, CI - Last Documented Arterial Blood Pressure 98/40 - Labs CBC & Chem 7: 07/09/24 04:20 07/09/24 04:20 Labs: Abnormal Lab Results - Last 24 Hours (Table) 07/09/24 07/09/24 Range/Units 04:20 04:20 RBC 3.13 L (4.30-5.90) m/uL Hgb 11.2 L (13.0-17.5) gm/dL Hct 32.7 L (39.0-53.0) % MCV 104.6 H (80.0-100.0) fL MCH 35.7 H (25.0-35.0) pg RDW 18.2 H (11.5-15.5) % Plt Count 133 L (150-450) k/uL Lymphocytes # 0.8 L (1.0-4.8) k/uL Macrocytosis Marked A Sodium 133 L (137-145) mmol/L BUN 74 H (9-20) mg/dL Creatinine 2.95 H (0.66-1.25) mg/dL Glucose 101 H (74-99) mg/dL
--- NOTE | 2024-07-09 21:39 | P.PN ---
Subjective Progress Note Date: 07/09/24 Principal diagnosis: Reason for follow-up is left leg cellulitis Patient is a 78-year-old male with a past medical history significant for atrial fibrillation hypertension hyperlipidemia osteoarthritis sleep apnea presenting to the hospital for evaluation of weakness and fall patient has been diagnosed with a left lower extremity cellulitis prompted this consultation. On today's evaluation that is 07/09/2024,the patient denies any fever or any chills, patient is breathing comfortably on 2 L nasal cannula oxygen, the patient denies chest pain shortness of breath and no significant cough, patient denies abdominal pain, no nausea vomiting or diarrhea. Denies pain to the lower extremity. Patient white count is 8.4 creatinine is 2.95 Objective - Vital Signs Vital signs: Vital Signs Temp 97.7 F 07/09/24 16:00 Pulse 96 07/09/24 17:15 Resp 22 07/09/24 17:15 BP 82/54 07/09/24 15:45 Pulse Ox 96 07/09/24 17:15 FiO2 21 07/09/24 04:59 Intake & Output 07/08/24 07/09/24 07/09/24 18:59 06:59 18:59 Intake Total 871.911 714.989 208.011 Output Total 300 4760 240 Balance 571.911 -4045.011 -31.989 Weight 178.1 kg Intake: IV 143 169 104 KVO 0.9 NS 110 130 80 pressure bag 33 39 24 Intake, IV Titration 28.911 145.989 104.011 Amount Norepinephrine 32 mg In 28.911 145.989 104.011 Sodium Chloride 0.9% 218 ml @ 0.03 MCG/KG/MIN 2.63 mls/hr IV .Q24H [facility] Rx#: [id number] Oral 700 Hemodialysis 400 Output: Urine 300 360 240 Hemodialysis 2400 Hemodialysis Net Amount 1999 Other: Voiding Method Indwelling Catheter Indwelling Catheter Indwelling Catheter ABP, PAP, CO, CI - Last Documented Arterial Blood Pressure 96/40 - Exam GENERAL DESCRIPTION: An elderly male lying in bed in no distress RESPIRATORY SYSTEM: Unlabored breathing , decreased breath sounds at bases HEART: S1 S2 regular rate and rhythm , ABDOMEN: Soft , no tenderness EXTREMITIES: Left leg swelling redness slightly decreased no open wound or any drainage - Labs CBC & Chem 7: 07/09/24 04:20 07/09/24 04:20 Labs: Abnormal Lab Results - Last 24 Hours (Table) 07/09/24 07/09/24 Range/Units 04:20 04:20 RBC 3.13 L (4.30-5.90) m/uL Hgb 11.2 L (13.0-17.5) gm/dL Hct 32.7 L (39.0-53.0) % MCV 104.6 H (80.0-100.0) fL MCH 35.7 H (25.0-35.0) pg RDW 18.2 H (11.5-15.5) % Plt Count 133 L (150-450) k/uL Lymphocytes # 0.8 L (1.0-4.8) k/uL Macrocytosis Marked A Sodium 133 L (137-145) mmol/L BUN 74 H (9-20) mg/dL Creatinine 2.95 H (0.66-1.25) mg/dL Glucose 101 H (74-99) mg/dL Assessment and Plan (1) Left leg cellulitis Current Visit: Yes Status: Acute Code(s): L03.116 - CELLULITIS OF LEFT LOWER LIMB SNOMED Code(s): 80201245535417765 Plan: 1patient presented to hospital with generalized weakness and falls in this patient who did have chronic swelling to the lower extremity now with worsening swelling redness to the left leg concerning for cellulitis likely streptococcal disease with diffuse swelling and redness no evidence of any purulence 2-patient is afebrile white count is normal patient has received adequate antibiotic therapy for underlying cellulitis and a question of possible UTI Patient is currently being monitored closely off antibiotic therapy Dictation was produced using [employer] software. please excuse any grammatical, word or spelling errors. Time with Patient: Less than 30
[2024-07-09] MEDS: SODIUM CHLORIDE 0.65% NASAL SPRAY 44 ML BTL NASAL PRN (22:21)
[2024-07-10 04:46] LABS: Anisocytosis Slight; Basophils # (A) 0.1 k/uL (0-0.2); Basophils % (A) 1 %; Eosinophils # (A) 0.4 k/uL (0-0.7); Eosinophils % (A) 4 %; HCT 33.3 % (39.0-53.0); HGB 11.4 gm/dL (13.0-17.5); Lymphocytes # (A) 0.8 k/uL (1.0-4.8); Lymphocytes % (A) 7 %; MCH 35.8 pg (25.0-35.0); MCHC 34.2 g/dL (31.0-37.0); MCV 104.7 fL (80.0-100.0); Macrocytosis Marked; Mean Platelet Volume 9.6; Monocytes # (A) 0.8 k/uL (0-1.0); Monocytes % (A) 8 %; Neutrophils # (A) 7.9 k/uL (1.3-7.7); Neutrophils % (A) 78 %; Platelet Count 167 k/uL (150-450); RBC 3.18 m/uL (4.30-5.90); RDW 18.2 % (11.5-15.5); WBC 10.1 k/uL (3.8-10.6)
[2024-07-10 04:54] LABS: African American GFR (CKD) 17 (>60 ml/min/1.73 sqM); Anion Gap 7 mmol/L; Blood Urea Nitrogen 83 mg/dL (9-20); Calcium 8.6 mg/dL (8.4-10.2); Carbon Dioxide 26 mmol/L (22-30); Chloride 100 mmol/L (98-107); Glucose 104 mg/dL (74-99); Non-African American GFR(CKD) 15 (>60 ml/min/1.73 sqM); Potassium 4.3 mmol/L (3.5-5.1); Sodium 133 mmol/L (137-145)
--- NOTE | 2024-07-10 08:18 | P.PN ---
Subjective Patient is seen in follow-up for acute kidney injury on chronic kidney disease. On IV Lasix. Urine output 10 to 30 cc an hour but was 90 cc the past hour. Oral intake fair. Started on hemodialysis July 06, 2024. On Levophed. Vital signs are stable. On Levophed. General: No acute distress. HEENT: Head exam is unremarkable. LUNGS: No audible rhonchi or wheezes. HEART: Rate and Rhythm are regular. ABDOMEN: Obese, nontender. EXTREMITITES: 2+ edema. Lower extremities wrapped. Objective - Vital Signs Vital signs: Vital Signs Temp 98.1 F 07/10/24 08:00 Pulse 92 07/10/24 08:00 Resp 22 07/10/24 08:00 BP 82/54 07/10/24 07:45 Pulse Ox 97 07/10/24 08:00 FiO2 21 07/10/24 04:12 Intake & Output 07/09/24 07/10/24 07/10/24 18:59 06:59 18:59 Intake Total 251.394 498.732 16 Output Total 310 335 125 Balance -58.606 163.732 -109 Weight 130.7 kg Intake: IV 143 176 16 KVO 0.9 NS 110 110 10 pressure bag 33 66 6 Intake, IV Titration 108.394 72.732 Amount Norepinephrine 32 mg In 108.394 72.732 Sodium Chloride 0.9% 218 ml @ 0.03 MCG/KG/MIN 2.63 mls/hr IV .Q24H [facility] Rx#: [id number] Oral 250 Output: Urine 310 335 125 Other: Voiding Method Indwelling Catheter Indwelling Catheter ABP, PAP, CO, CI - Last Documented Arterial Blood Pressure 101/47 - Labs CBC & Chem 7: 07/10/24 04:30 07/10/24 04:30 Labs: Abnormal Lab Results - Last 24 Hours (Table) 07/10/24 07/10/24 Range/Units 04:30 04:30 RBC 3.18 L (4.30-5.90) m/uL Hgb 11.4 L (13.0-17.5) gm/dL Hct 33.3 L (39.0-53.0) % MCV 104.7 H (80.0-100.0) fL MCH 35.8 H (25.0-35.0) pg RDW 18.2 H (11.5-15.5) % Neutrophils # 7.9 H (1.3-7.7) k/uL Lymphocytes # 0.8 L (1.0-4.8) k/uL Macrocytosis Marked A Sodium 133 L (137-145) mmol/L BUN 83 H (9-20) mg/dL Creatinine 3.79 H (0.66-1.25) mg/dL Glucose 104 H (74-99) mg/dL Assessment and Plan Plan: Assessment: 1. Acute kidney injury secondary to ATN secondary to hypotension and cardiorenal syndrome. Creatinine up to 4.3 dated July 06, 2024. Started on hemodialysis July 06, 2024 via femoral dialysis catheter. No hydronephrosis noted on ultrasound. Trace protein on UA. 2. 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 Creatinine 1.5 in March 2024. 3. Acute on chronic diastolic CHF and moderate mitral consultation, severe tricuspid regurgitation and pulmonary hypertension. 4. Volume overload. Improved with diuresis and ultrafiltration. 5. Right lower extremity cellulitis and Enterococcus UTI s/p antibiotics. ID following. 6. Hypervolemic hyponatremia. Stable. Plan: Hemodialysis today. Maintain IV Lasix. Maintain metolazone. Low-salt diet and 1500 cc fluid restriction. Maintain midodrine. Wean Levophed. Avoid nephrotoxins. Continue to monitor renal function and urine output.
--- NOTE | 2024-07-10 08:32 | P.PN ---
Subjective Progress Note Date: 07/10/24 This is a 78-year-old male who originally presented to the emergency department after a fall at home, reportedly his knee gave out. Patient also complained of shortness of breath and feels poorly overall. Patient became hypotensive and was transferred to the ICU. Creatinine remains elevated and he has been on Lasix drip. Patient lives with his at home, who he cares for. Patient seen this morning resting comfortably in bed. He is still hypotensive this morning. Creatinine today is 3.77. 07/10/2024 Patient was started on hemodialysis on 07/06. He is currently off of lasix drip but still on pressors. He is seen this morning laying in bed. He reports he is more fatigued today. Objective - Vital Signs Vital signs: Vital Signs Temp 98.1 F 07/10/24 08:00 Pulse 92 07/10/24 08:00 Resp 22 07/10/24 08:00 BP 82/54 07/10/24 07:45 Pulse Ox 97 07/10/24 08:00 FiO2 21 07/10/24 04:12 Intake & Output 07/09/24 07/10/24 07/10/24 18:59 06:59 18:59 Intake Total 251.394 498.732 16 Output Total 310 335 125 Balance -58.606 163.732 -109 Weight 130.7 kg Intake: IV 143 176 16 KVO 0.9 NS 110 110 10 pressure bag 33 66 6 Intake, IV Titration 108.394 72.732 Amount Norepinephrine 32 mg In 108.394 72.732 Sodium Chloride 0.9% 218 ml @ 0.03 MCG/KG/MIN 2.63 mls/hr IV .Q24H [facility] Rx#: [id number] Oral 250 Output: Urine 310 335 125 Other: Voiding Method Indwelling Catheter Indwelling Catheter ABP, PAP, CO, CI - Last Documented Arterial Blood Pressure 101/47 - Constitutional General appearance: Present: cooperative, no acute distress - EENT Eyes: Present: PERRLA - Neck Neck: Present: normal ROM. Absent: lymphadenopathy, rigidity - Respiratory Respiratory: bilateral: CTA - Cardiovascular Heart sounds: normal: S1, S2 - Gastrointestinal General gastrointestinal: Present: soft. Absent: tenderness - Musculoskeletal Musculoskeletal: Present: generalized weakness - Psychiatric Psychiatric: Present: A&O x's 3 - Labs CBC & Chem 7: 07/10/24 04:30 07/10/24 04:30 Labs: Abnormal Lab Results - Last 24 Hours (Table) 07/10/24 07/10/24 Range/Units 04:30 04:30 RBC 3.18 L (4.30-5.90) m/uL Hgb 11.4 L (13.0-17.5) gm/dL Hct 33.3 L (39.0-53.0) % MCV 104.7 H (80.0-100.0) fL MCH 35.8 H (25.0-35.0) pg RDW 18.2 H (11.5-15.5) % Neutrophils # 7.9 H (1.3-7.7) k/uL Lymphocytes # 0.8 L (1.0-4.8) k/uL Macrocytosis Marked A Sodium 133 L (137-145) mmol/L BUN 83 H (9-20) mg/dL Creatinine 3.79 H (0.66-1.25) mg/dL Glucose 104 H (74-99) mg/dL Assessment and Plan (1) Hypotension Current Visit: Yes Status: Acute Code(s): I95.9 - HYPOTENSION, UNSPECIFIED SNOMED Code(s): 90036305 (2) Weakness Current Visit: Yes Status: Acute Code(s): R53.1 - WEAKNESS SNOMED Code(s): 81805165 (3) Cellulitis Current Visit: Yes Status: Acute Code(s): L03.90 - CELLULITIS, UNSPECIFIED SNOMED Code(s): 622297013 (4) Acute kidney injury Current Visit: Yes Status: Acute Code(s): N17.9 - ACUTE KIDNEY FAILURE, UNSPECIFIED SNOMED Code(s): 59872528 (5) Acute on chronic heart failure Current Visit: Yes Status: Acute Code(s): I50.9 - HEART FAILURE, UNSPECIFIED SNOMED Code(s): 933346845 (6) Hyponatremia Current Visit: Yes Status: Acute Code(s): E87.1 - HYPO-OSMOLALITY AND HYPONATREMIA SNOMED Code(s): 59307541 Plan: Check CBC and CMP in the morning. Appreciate multiple consultants. Patient seen and evaluated by nurse practitioner, physician in agreement with plan
--- NOTE | 2024-07-10 11:49 | P.PN ---
Subjective Progress Note Date: 07/10/24 This is a 78-year-old male patient with massive fluid overload, ongoing difficulty with chronic kidney failure as the patient has developed an acute on top of chronic renal disease with extensive third spacing and anasarca and possibly a component of cardiorenal syndrome. 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 Baseline creatinine is around 1.5 back in March 2024. The patient presented to us with volume overload, acute on top of chronic diastolic heart failure with moderate mitral regurgitation. Patient also was diagnosed having an Enterococcus urinary tract infection currently on IV Unasyn. Initial rate, attempts to diurese this patient with Lasix have failed due to ongoing hypotension. The patient was started on midodrine 10 mg p.o. 4 times daily. Subsequently, I was asked to transfer this patient to the ICU for hemodynamic support and pressor use as the patient was going to be started on Lasix 5 mg infusion in combination with Mala oxolyn 5 mg p.o. daily. Based on that, the patient was transferred to the ICU. Lasix s drip was started and the patient will be started also on norepinephrine for blood pressure support. He is currently awake and alert. Following commands. He is on oxygen at 2 L/min nasal cannula. His chest x-ray showing small bilateral pleural effusion and this is less x-ray that was done on 06/26/2024. Patient was evaluated today on 07/03/24, remains in the ICU, he was seen by Dr. Jp nance on consultation yesterday, he was placed on Lasix drip at 5 mg/h, making about 50 to 75 cc of urine per hour. Blood pressure is marginal he is requiring norepinephrine at 0.06 mcg/kg/min. Patient is not complaining of shortness of breath, he is on 2 L nasal cannula, he seems to be extremely swollen edematous and has anasarca. Nonetheless the patient is feeling better compared to yesterday. And seemsto be responding to the Lasix drip. WBC count is 8.4 hemoglobin 12.2 electrolytes are normal BUN is 92 creatinine 3.53., Relatively unchanged compared to yesterday.Patient's baseline creatinine on 06/26 was 2.19. Patient is receiving Unasyn for what seems to be acute urinary tract infection secondary to Enterococcus. Faecalis. Patient was evaluated today on 07/04/2024, remains in the ICU remains on Lasix drip and dose has been increased to 10 mg/h. Patient is requiring norepinephrine at 0.07 mcg/kg/min he is also on IV fluid at KVO. Antibiotics cooley he is on Unasyn for his UTI, and is also on Eliquis. Patient tells me that he is feeling better, breathing easier, and he continues to respond to Lasix but urine output did not improve much by increasing the dose of Lasix., WBC is 8.4 hemoglobin 11.9 basic metabolic profile is normal bicarb is 27 BUN is 95 creatinine 3.77 Gradually rising. His renal status is being addressed and followed by nephrology chest x-ray showed evidence of cardiomegaly and pulmonary vascular congestion. Patient remains on 2 L nasal cannula, and he is O2 saturat ion is 97%. Blood pressure is marginal, his mean arterial pressure is 68, patient is requiring norepinephrine Patient today on 07/05/2024, patient is not doing too great today. Patient is getting worse, he is developing worsening hypotension and requiring now higher doses of norepinephrine and higher doses of vasopressin. Patient required lines including central line and arterial line, and these were done today. Urine output remains about 35 to 40 cc/h, in spite of Lasix at 10 mg/h. His renal functioning is getting worse creatinine is up to 3.9 today. Again the patient is requiring norepinephrine and we have added vasopressin, patient seems to be developing acute kidney injury with ATN and hypotension as well as cardiorenal syndrome. Nephrology is considering to proceed with renal replacement therapy since the patient continues to remain volume overloaded. And urine output is not that great. His creatinine baseline in March was 1.5. Looking at his echocardiogram, patient has chronic diastolic congestive heart failure with moderate mitral regurgitation, and severe pulmonary hypertension. Patient is also receiving antibiotics for his right lower extremity cellulitis, in addition he has Enterococcus urinary tract infection addressed by infectious disease on the case.WBC count is 7.1 hemoglobin is 11.1 basic metabolic profile is normal bicarb is 23 BUN is 101 creatinine 3.94. Chest x-ray is showing worsening pleural effusion and pulmonary edema Reevaluate today on 07/06/2024, patient remains in the ICU, still on pressors requiring norepinephrine at 0.24 mcg/kg/min, patient did not require vasopressin yesterday. Still on midodrine. A right femoral dialysis catheter was placed yesterday by vascular surgery. Patient is supposed to be started on hemodialysis today. Clinically today, he seems to be feeling better compared to yesterday.Denies any cough wheezing or shortness of breath, patient feels generally weak. WBC count is 7.9 hemoglobin 11.8 electrolytes are normal BUN is 102 creatinine 4.31 patient remains on Lasix drip at 10 mg/h, and the plan is to hemodialyze today Patient was evaluated today on 07/07/2024, patient remains in the ICU on 2 L nasal cannula patient underwent hemodialysis yesterday and 2 L were removed. His BUN is 90 creatinine 4.13. Remains on Lasix drip at 10 mg/h he is still requiring norepinephrine at 0.21 mcg/kg/min, blood pressure remains marginal at best. Patient is still covered with Unasyn still on Eliquis, patient was placed on Lopressor at 100 mg p.o. or twice daily by cardiology his echocardiogram showed significant valvular heart disease, pulmonary hypertension, ejection fraction is 50 to 55%. Patient is complaining today of some bloating and abdominal discomfort, but no nausea no vomiting. No significant pain. WBC count today is 8.2 hemoglobin 11.3 electrolytes are normal BUN is 90 creatinine 4.13, chest x-ray showed mild pulmonary vascular congestion Patient was evaluated today on 07/08/2024, patient remains in the ICU still requiring pressors, he is on norepinephrine at 0.22 mcg/kg/min blood pressure remains marginal, patient is intermittently getting hemodialysis, remains on multiple cardiac meds but he is off Lasix drip at this point. Pulmonary cooley he is on 2 L nasal cannula, does not seem to be in distress. Chest x-ray today showed minimal right basilar atelectasis, no evidence of pulmonary edema. Apparently the patient did not tolerate hemodialysis treatment yesterday well, because of low blood pressure. WBC count is 9.3 hemoglobin 11.4 basic metabolic profile is normal BUN is 82 creatinine 3.49 Patient was seen today on 07/09/2024, patient remains in the ICU, remains on nor epinephrine and he is intermittently on hemodialysis. Off Lasix drip. On 3 L nasal cannula, on norepinephrine 0.13 mcg/kg/min on midodrine on IV fluid at KVO. Patient is also on Eliquis. Urine output is about 25 to 40 cc/h. His CVP is 15 patient had 2 L removed by hemodialysis on 07/08 and his CVP today is ranging between 12-15. Pulmonary cooley is not in distress, however his blood pressure remains extremely low requiring pressors hence I cannot move the patient out of the ICU as long as he is on pressors The patient is seen today July 10, 2024 in follow-up in the intensive care unit. Awake and alert in no acute distress. Currently resting fairly comfortably in bed. He is maintaining good O2 saturations in the 90s on 2 L/min per nasal cannula. He is still requiring norepinephrine at 20 mcg/min. Normal saline at KVO. Urine culture was positive for Enterococcus faecalis. Blood cultures revealed no growth. White count 10.1. Hemoglobin 11.4. Sodium 133. Potassium 4.3. Bicarb 26. BUN 83. Creatinine 3.79. Glucose 104. He is continued on Lasix 60 mg every 12 hours. Anticoagulated with Eliquis. Remains on midodrine 10 mg 4 times daily. Objective - Vital Signs Vital signs: Vital Signs Temp 98.1 F 07/10/24 08:00 Pulse 93 07/10/24 11:00 Resp 18 07/10/24 11:00 BP 82/54 07/10/24 07:45 Pulse Ox 95 07/10/24 11:00 FiO2 21 07/10/24 04:12 Intake & Output 07/09/24 07/10/24 07/10/24 18:59 06:59 18:59 Intake Total 251.394 498.732 236.885 Output Total 310 335 225 Balance -58.606 163.732 11.885 Weight 130.7 kg 130.7 kg Intake: IV 143 176 64 KVO 0.9 NS 110 110 40 pressure bag 33 66 24 Intake, IV Titration 108.394 72.732 172.885 Amount Norepinephrine 32 mg In 108.394 72.732 172.885 Sodium Chloride 0.9% 218 ml @ 0.03 MCG/KG/MIN 2.63 mls/hr IV .Q24H [facility] Rx#: [id number] Oral 250 Output: Urine 310 335 225 Other: Voiding Method Indwelling Catheter Indwelling Catheter Indwelling Catheter ABP, PAP, CO, CI - Last Documented Arterial Blood Pressure 85/34 - Exam GENERAL EXAM: Alert, pleasant 78-year-old gentleman, on 2 L nasal cannula, comfortable in no apparent distress. HEAD: Normocephalic. EYES: Normal reaction of pupils, equal size. NOSE: Clear with pink turbinates. THROAT: No erythema or exudates. NECK: No masses, no JVD. CHEST: No chest wall deformity. LUNGS: Equal air entry with no crackles, wheeze, rhonchi or dullness. CVS: S1 and S2 normal with no audible murmur, regular rhythm. ABDOMEN: No hepatosplenomegaly, normal bowel sounds, no guarding or rigidity. SPINE: No scoliosis or deformity SKIN: No rashes CENTRAL NERVOUS SYSTEM: No focal deficits, tone is normal in all 4 extremities. EXTREMITIES: Hemodialysis catheter in place. There is no peripheral edema. No clubbing, no cyanosis. Peripheral pulses are intact. - Labs CBC & Chem 7: 07/10/24 04:30 07/10/24 04:30 Labs: Abnormal Lab Results - Last 24 Hours (Table) 07/10/24 07/10/24 Range/Units 04:30 04:30 RBC 3.18 L (4.30-5.90) m/uL Hgb 11.4 L (13.0-17.5) gm/dL Hct 33.3 L (39.0-53.0) % MCV 104.7 H (80.0-100.0) fL MCH 35.8 H (25.0-35.0) pg RDW 18.2 H (11.5-15.5) % Neutrophils # 7.9 H (1.3-7.7) k/uL Lymphocytes # 0.8 L (1.0-4.8) k/uL Macrocytosis Marked A Sodium 133 L (137-145) mmol/L BUN 83 H (9-20) mg/dL Creatinine 3.79 H (0.66-1.25) mg/dL Glucose 104 H (74-99) mg/dL Assessment and Plan Assessment: Acute on chronic diastolic congestive heart failure with hypotension, requiring pressors remains on norepinephrine at 0.17 mcg/kg/min Acute on chronic stage IIIb kidney disease with massive volume overload and initiated on hemodialysis Hyperlipidemia Chronic atrial fibrillation, maintained on anticoagulation with Eliquis Enterococcus urinary tract infection currently on IV Unasyn. Severe pulmonary hypertension Morbid obesity Gout History of obstructive sleep apnea, not tolerant to CPAP therapy Previous history of WPW and SVT Osteoarthritis Previous history of DVT of lower extremities Glaucoma Plan: The patient was seen and evaluated Labs and medications reviewed Currently on 2 L nasal cannula Titrate the FiO2 as tolerated Titrate down the norepinephrine as tolerated Plan is for hemodialysis today Remains on IV diuretics Eliquis for anticoagulation Check a cortisol level, TSH Will continue to follow I have personally seen and examined the patient, performed the documentation and the assessment and plan as written. Number of minutes spent on the visit: 10.
[2024-07-10 12:46] LABS: T4, Free (Free Thyroxine) 1.47 ng/dL (0.78-2.19)
--- NOTE | 2024-07-10 16:10 | P.PN ---
Subjective Progress Note Date: 07/10/24 HISTORY OF PRESENTING ILLNESS This is a 78-year-old patient of Dr. Deleon with past medical history of morbid obesity, permanent atrial fibrillation on Coumadin, hypertension, dyslipidemia, history of DVT, dilated thoracic aorta and valvular heart disease, pulmonary hypertension. We have been asked to evaluate the patient for heart failure. Patient gives history that he had a fall at home. He states his knee gave out on him. He complains of shortness of breath. He feels poorly in general. He is not very active at home. He denies having any fever. No history of smoking. No palpitations. Edema which she states is at his baseline. No blood in his stool or urine. No history of stroke or seizure. 07/01/2024 Was seen and examined resting comfortably in bed. Blood pressure is improved but remains on the low side. He is being followed by nephrology who has started a Lasix drip at 10 mL/h. They have increased metolazone to 5 mg p.o. daily and discontinued Farxiga due to current infection. Overall patient continues to complain of shortness of breath. Continues to complain of orthopnea but improving. Continues to complain of significant lower extremity edema labs this morning showed a creatinine of 2.92. INR 2.0. 07/02/2024 The patient was seen and examined resting comfortably in bed. He is overall feeling his breathing is a bit better. Continues to have significant edema. Continues to be followed by nephrology with adjustments made to his diuretics as well as the addition of albumin. Renal function is worse with a creatinine of 3.54. Blood pressure remains low. 07/03 Patient seen and examined. Patient remains on metoprolol 100 twice a day with borderline blood pressures and patient has been on norepinephrine as well as a Lasix drip at 5 and Zaroxolyn. Urine output approximately 50 mL/h. Denies a chest pain or pressure. Still significant large from edema. Creatinine relatively stable at 3.5. 07/04 patient seen and examined. Patient's echo reviewed and does have severe right ventricular dilation, significantly increased right ventricular pressures with some right ventricular hypokinesis and atypical septal motion which appears consistent with RV overload. There is additional mild pericardial effusion however no obvious Cannot physiology. Patient continues on the IV Lasix drip at 10 with addition of Zaroxolyn with marginal urine outputs and not much negative urine output. Denies any chest pain or pressure. Still remains on metoprolol. Blood pressures borderline and has been on low-dose norepinephrine. 07/05 Patient seen and examined. Hemoglobin 11.1, BUN 101, creatinine 3.9. Still having urine output of approximately 50 mL per hour. Metoprolol was decreased and heart rates closer to 100 in attempt to increase cardiac output, decrease negative inotrope. 07/06 patient seen and examined. Patient had dialysis catheter placed and undergoing dialysis for the first time today with 2 L output. Remains on norepinephrine. Denies any chest pain or pressure. 07/07 Patient seen and examined. Patient underwent dialysis yesterday with approximately 2 L output. Hemoglobin stable 11.3, BUN 90, creatinine 4.1. He does state he feels better today. Heart rates have been up in the 90-110 range fairly consistently. 07/08 Patient seen and examined in the intensive care unit. He underwent HD yesterday with 1 L of fluid removed. His urine output has been 25 to 35 cc/h. He does complain of increasing difficulty in breathing today. Heart rate is running between 90 and 105, blood pressure 104/45, pulse ox 95% on 2 L nasal cannula. Repeat blood work reveals hemoglobin 11.4. BUN 32 creatinine 3.49, sodium 133, potassium 4.2. Repeat chest x-ray reveals thyromegaly, right basilar atelectasis. 07/09 Patient is seen and examined in the intensive care unit. Last evening, patient had hemodialysis with 2 L removed. He is on Levophed which was decreased. Blood pressure 82/54, heart rate 101. Repeat blood work reveals hemoglobin 11.2, platelet count 133. Renal function is improving with BUN 74, creatinine 2.95. Sodium is 133, potassium 4.1. Repeat chest x-ray reveals mild right pleural effusion, cardiomegaly. July 10, 2024 Patient is seen and examined at bedside. BP 105/45, heart rate 88 bpm, hemoglobin 11.4, BUN 83, creatinine 3.79. Creatinine up trended from 2.9 yesterday. Patient is getting hemodialysis at the time of evaluation. Denies any chest pain chest pressure. Reports feeling generalized weakness. PHYSICAL EXAMINATION Vital signs reviewed. CONSTITUTIONAL: No apparent distress. HEENT: Mild elevated JVP CHEST EXAMINATION: Mild crackles audible in bilateral lung espinal, diminished breath sounds due to poor inspiratory effort HEART EXAMINATION: Regular rate and rhythm. Mild systolic murmur audible. ABDOMEN: Soft, nontender. Positive bowel sounds. EXTREMITIES: 2+ lower extremity edema and no calf tenderness. NEUROLOGIC EXAMINATION: Patient is awake, alert and oriented x3. ASSESSMENT Generalized weakness and fall Permanent atrial fibrillation transitioned to Eliquis Acute on chronic diastolic heart failure, mainly right sided Supratherapeutic INR Acute kidney injury started on HD 07/06 Chronic kidney disease stage IIIb Hypertension Dyslipidemia History of DVT Dilated thoracic aorta Valvular heart disease with moderate MR, moderate to severe pulmonary hypertension small pericardial effusion Thrombocytopenia Plan: Patient still significantly volume overloaded and monitor response of hemodialysis. Patient is on IV Lasix 60 mg every 12 hours per nephrology Continue metoprolol 100 twice a day Monitor patient's response to dialysis, monitor BALAJI,, daily weights, electrolytes and renal function. Prognosis guarded.HISTORY OF PRESENTING ILLNESS This is a 78-year-old patient of Dr. Deleon with past medical history of morbid obesity, permanent atrial fibrillation on Coumadin, hypertension, dyslipidemia, history of DVT, dilated thoracic aorta and valvular heart disease, pulmonary hypertension. We have been asked to evaluate the patient for heart failure. Patient gives history that he had a fall at home. He states his knee gave out on him. He complains of shortness of breath. He feels poorly in general. He is not very active at home. He denies having any fever. No history of smoking. No palpitations. Edema which she states is at his baseline. No blood in his stool or urine. No history of stroke or seizure. 07/01/2024 Was seen and examined resting comfortably in bed. Blood pressure is improved but remains on the low side. He is being followed by nephrology who has started a Lasix drip at 10 mL/h. They have increased metolazone to 5 mg p.o. daily and discontinued Farxiga due to current infection. Overall patient continues to complain of shortness of breath. Continues to complain of orthopnea but improving. Continues to complain of significant lower extremity edema labs this morning showed a creatinine of 2.92. INR 2.0. 07/02/2024 The patient was seen and examined resting comfortably in bed. He is overall feeling his breathing is a bit better. Continues to have significant edema. Continues to be followed by nephrology with adjustments made to his diuretics as well as the addition of albumin. Renal function is worse with a creatinine of 3.54. Blood pressure remains low. 07/03 Patient seen and examined. Patient remains on metoprolol 100 twice a day with borderline blood pressures and patient has been on norepinephrine as well as a Lasix drip at 5 and Zaroxolyn. Urine output approximately 50 mL/h. Denies a chest pain or pressure. Still significant large from edema. Creatinine relatively stable at 3.5. 07/04 patient seen and examined. Patient's echo reviewed and does have severe right ventricular dilation, significantly increased right ventricular pressures with some right ventricular hypokinesis and atypical septal motion which appears consistent with RV overload. There is additional mild pericardial effusion how ever no obvious Cannot physiology. Patient continues on the IV Lasix drip at 10 with addition of Zaroxolyn with marginal urine outputs and not much negative urine output. Denies any chest pain or pressure. Still remains on metoprolol. Blood pressures borderline and has been on low-dose norepinephrine. 07/05 Patient seen and examined. Hemoglobin 11.1, BUN 101, creatinine 3.9. Still having urine output of approximately 50 mL per hour. Metoprolol was decreased and heart rates closer to 100 in attempt to increase cardiac output, decrease negative inotrope. 07/06 patient seen and examined. Patient had dialysis catheter placed and undergoing dialysis for the first time today with 2 L output. Remains on norepinephrine. Denies any chest pain or pressure. 07/07 Patient seen and examined. Patient underwent dialysis yesterday with approximately 2 L output. Hemoglobin stable 11.3, BUN 90, creatinine 4.1. He does state he feels better today. Heart rates have been up in the 90-110 range fairly consistently. 07/08 Patient seen and examined in the intensive care unit. He underwent HD yesterday with 1 L of fluid removed. His urine output has been 25 to 35 cc/h. He does complain of increasing difficulty in breathing today. Heart rate is running between 90 and 105, blood pressure 104/45, pulse ox 95% on 2 L nasal cannula. Repeat blood work reveals hemoglobin 11.4. BUN 32 creatinine 3.49, sodium 133, potassium 4.2. Repeat chest x-ray reveals thyromegaly, right basilar atel ectasis. 07/09 Patient is seen and examined in the intensive care unit. Last evening, patient had hemodialysis with 2 L removed. He is on Levophed which was decreased. Blood pressure 82/54, heart rate 101. Repeat blood work reveals hemoglobin 11.2, platelet count 133. Renal function is improving with BUN 74, creatinine 2.95. Sodium is 133, potassium 4.1. Repeat chest x-ray reveals mild right pleural effusion, cardiomegaly. July 10, 2024 Patient is seen and examined at bedside. BP 105/45, heart rate 88 bpm, hemoglobin 11.4, BUN 83, creatinine 3.79. Creatinine up trended from 2.9 yes terday. Patient is getting hemodialysis at the time of evaluation. Denies any chest pain chest pressure. Reports feeling generalized weakness. PHYSICAL EXAMINATION Vital signs reviewed. CONSTITUTIONAL: No apparent distress. HEENT: Mild elevated JVP CHEST EXAMINATION: Mild crackles audible in bilateral lung espinal, diminished breath sounds due to poor inspiratory effort HEART EXAMINATION: Regular rate and rhythm. Mild systolic murmur audible. ABDOMEN: Soft, nontender. Positive bowel sounds. EXTREMITIES: 2+ lower extremity edema and no calf tenderness. NEUROLOGIC EXAMINATION: Patient is awake, alert and oriented x3. ASSESSMENT Generalized weakness and fall Permanent atrial fibrillation transitioned to Eliquis Acute on chronic diastolic heart failure, mainly right sided Supratherapeutic INR Acute kidney injury started on HD 07/06 Chronic kidney disease stage IIIb Hypertension Dyslipidemia History of DVT Dilated thoracic aorta Valvular heart disease with moderate MR, moderate to severe pulmonary hypertension small pericardial effusion Thrombocytopenia Plan: Patient still significantly volume overloaded and monitor response of hemodialysis. Patient is on IV Lasix 60 mg every 12 hours per nephrology Continue metoprolol 100 twice a day Monitor patient's response to dialysis, monitor BALAJI,, daily weights, electrolytes and renal function. Prognosis guarded. Objective - Vital Signs Vital signs: Vital Signs Temp 98 F 07/10/24 12:00 Pulse 88 07/10/24 15:00 Resp 24 07/10/24 15:00 BP 82/54 07/10/24 07:45 Pulse Ox 98 07/10/24 15:00 FiO2 21 07/10/24 04:12 Intake & Output 07/09/24 07/10/24 07/10/24 18:59 06:59 18:59 Intake Total 251.394 498.732 300.885 Output Total 310 335 330 Balance -58.606 163.732 -29.115 Weight 130.7 kg 130.7 kg Intake: IV 143 176 128 KVO 0.9 NS 110 110 80 pressure bag 33 66 48 Intake, IV Titration 108.394 72.732 172.885 Amount Norepinephrine 32 mg In 108.394 72.732 172.885 Sodium Chloride 0.9% 218 ml @ 0.03 MCG/KG/MIN 2.63 mls/hr IV .Q24H [facility] Rx#: [id number] Oral 250 Output: Urine 310 335 330 Other: Voiding Method Indwelling Catheter Indwelling Catheter Indwelling Catheter ABP, PAP, CO, CI - Last Documented Arterial Blood Pressure 105/45 - Labs CBC & Chem 7: 07/10/24 04:30 07/10/24 04:30 Labs: Abnormal Lab Results - Last 24 Hours (Table) 07/10/24 07/10/24 07/10/24 Range/Units 04:30 04:30 04:30 RBC 3.18 L (4.30-5.90) m/uL Hgb 11.4 L (13.0-17.5) gm/dL Hct 33.3 L (39.0-53.0) % MCV 104.7 H (80.0-100.0) fL MCH 35.8 H (25.0-35.0) pg RDW 18.2 H (11.5-15.5) % Neutrophils # 7.9 H (1.3-7.7) k/uL Lymphocytes # 0.8 L (1.0-4.8) k/uL Macrocytosis Marked A Sodium 133 L (137-145) mmol/L BUN 83 H (9-20) mg/dL Creatinine 3.79 H (0.66-1.25) mg/dL Glucose 104 H (74-99) mg/dL TSH 6.870 H (0.465-4.680) mIU/L
[2024-07-11 04:30] LABS: HCT 32.9 % (39.0-53.0); HGB 11.1 gm/dL (13.0-17.5); MCV 105.3 fL (80.0-100.0); RBC 3.13 m/uL (4.30-5.90); WBC 8.4 k/uL (3.8-10.6)
[2024-07-11 04:31] LABS: Anisocytosis Slight; Basophils # (A) 0.1 k/uL (0-0.2); Basophils % (A) 1 %; Eosinophils # (A) 0.5 k/uL (0-0.7); Eosinophils % (A) 5 %; Lymphocytes # (A) 0.9 k/uL (1.0-4.8); Lymphocytes % (A) 10 %; MCH 35.4 pg (25.0-35.0); MCHC 33.7 g/dL (31.0-37.0); Macrocytosis Marked; Mean Platelet Volume 8.6; Monocytes # (A) 0.6 k/uL (0-1.0); Monocytes % (A) 8 %; Neutrophils # (A) 6.1 k/uL (1.3-7.7); Neutrophils % (A) 74 %; Platelet Count 169 k/uL (150-450); RDW 18.1 % (11.5-15.5)
[2024-07-11 05:47] LABS: ALT 7 U/L (4-49); AST 38 U/L (17-59); African American GFR (CKD) 20 (>60 ml/min/1.73 sqM); Albumin 2.8 g/dL (3.5-5.0); Alkaline Phosphatase 203 U/L (38-126); Anion Gap 5 mmol/L; Blood Urea Nitrogen 67 mg/dL (9-20); Calcium 8.7 mg/dL (8.4-10.2); Carbon Dioxide 27 mmol/L (22-30); Chloride 101 mmol/L (98-107); Glucose 102 mg/dL (74-99); Non-African American GFR(CKD) 17 (>60 ml/min/1.73 sqM); Potassium 4.2 mmol/L (3.5-5.1); Sodium 133 mmol/L (137-145); Total Bilirubin 3.7 mg/dL (0.2-1.3)
--- NOTE | 2024-07-11 07:25 | P.PN ---
Subjective Progress Note Date: 07/10/24 Principal diagnosis: Reason for follow-up is left leg cellulitis Patient is a 78-year-old male with a past medical history significant for atrial fibrillation hypertension hyperlipidemia osteoarthritis sleep apnea presenting to the hospital for evaluation of weakness and fall patient has been diagnosed with a left lower extremity cellulitis prompted this consultation. On today's evaluation that is 07/10/2024,the patient remains to be afebrile, patient is on 2 L nasal cannula supplemental oxygen and denies any worsening shortness of breath no chest pain or cough.Patient denies having any nausea or vomiting, no abdominal pain and no diarrhea has been reported, no pain to the lower extremity. Patient white count is 10.1, creatinine 3.79 Objective - Vital Signs Vital signs: Vital Signs Temp 98.6 F 07/10/24 07:00 Pulse 92 07/10/24 07:00 Resp 16 07/10/24 07:00 BP 107/47 07/10/24 07:00 Pulse Ox 96 07/10/24 07:00 FiO2 2 07/10/24 04:00 - Exam GENERAL DESCRIPTION: An elderly male lying in bed in no distress RESPIRATORY SYSTEM: Unlabored breathing , decreased breath sounds at bases HEART: S1 S2 regular rate and rhythm , ABDOMEN: Soft , no tenderness EXTREMITIES: Left leg swelling redness slightly decreased no open wound or any drainage - Labs CBC & Chem 7: 08/01/24 07:02 08/01/24 07:02 Labs: Abnormal Lab Results - Last 24 Hours (Table) 07/10/24 07/11/24 07/11/24 Range/Units 04:30 04:05 04:05 RBC 3.13 L (4.30-5.90) m/uL Hgb 11.1 L (13.0-17.5) gm/dL Hct 32.9 L (39.0-53.0) % MCV 105.3 H (80.0-100.0) fL MCH 35.4 H (25.0-35.0) pg RDW 18.1 H (11.5-15.5) % Lymphocytes # 0.9 L (1.0-4.8) k/uL Macrocytosis Marked A Sodium 133 L (137-145) mmol/L BUN 67 H (9-20) mg/dL Creatinine 3.30 H (0.66-1.25) mg/dL Glucose 102 H (74-99) mg/dL Total Bilirubin 3.7 H (0.2-1.3) mg/dL Alkaline Phosphatase 203 H (38-126) U/L Total Protein 6.0 L (6.3-8.2) g/dL Albumin 2.8 L (3.5-5.0) g/dL TSH 6.870 H (0.465-4.680) mIU/L Assessment and Plan (1) Left leg cellulitis Current Visit: Yes Status: Acute Code(s): L03.116 - CELLULITIS OF LEFT LOWER LIMB SNOMED Code(s): 71268608742862010 Plan: 1patient presented to hospital with generalized weakness and falls in this patient who did have chronic swelling to the lower extremity now with worsening swelling redness to the left leg concerning for cellulitis likely streptococcal disease with diffuse swelling and redness no evidence of any purulence 2-patient is afebrile white count is normal patient has received adequate antibiotic therapy for underlying cellulitis and a question of possible UTI, currently seems to be doing well off antibiotics and will monitor closely Dictation was produced using [employer] software. please excuse any grammatical, word or spelling errors. Time with Patient: Less than 30
--- NOTE | 2024-07-11 08:42 | P.PN ---
Subjective Progress Note Date: 07/11/24 This is a 78-year-old male who originally presented to the emergency department after a fall at home, reportedly his knee gave out. Patient also complained of shortness of breath and feels poorly overall. Patient became hypotensive and was transferred to the ICU. Creatinine remains elevated and he has been on Lasix drip. Patient lives with his at home, who he cares for. Patient seen this morning resting comfortably in bed. He is still hypotensive this morning. Creatinine today is 3.77. 07/10/2024 Patient was started on hemodialysis on 07/06. He is currently off of lasix drip but still on pressors. He is seen this morning laying in bed. He reports he is more fatigued today. 07/11/2024 Patient seen and evaluated laying in bed this morning. He is still on Levophed. Creatinine today is 3.3. He does appear more fatigued today. He did have dialysis yesterday. Objective - Vital Signs Vital signs: Vital Signs Temp 98.6 F 07/11/24 04:00 Pulse 92 07/11/24 07:00 Resp 16 07/11/24 07:00 BP 107/47 07/10/24 16:22 Pulse Ox 96 07/11/24 07:00 FiO2 2 07/11/24 04:00 Intake & Output 07/10/24 07/11/24 07/11/24 18:59 06:59 18:59 Intake Total 1311.782 626.937 16 Output Total 4825 405 25 Balance -3513.218 221.937 -9 Weight 130.7 kg 180.53 kg Intake: IV 176 192 16 KVO 0.9 NS 110 120 10 pressure bag 66 72 6 Intake, IV Titration 235.782 198.937 Amount Norepinephrine 32 mg In 235.782 198.937 Sodium Chloride 0.9% 218 ml @ 0.03 MCG/KG/MIN 2.63 mls/hr IV .Q24H [facility] Rx#: [id number] Oral 500 236 Hemodialysis 400 Output: Urine 425 405 25 Hemodialysis 2400 Hemodialysis Net Amount 1999 Other: Voiding Method Indwelling Catheter Indwelling Catheter ABP, PAP, CO, CI - Last Documented Arterial Blood Pressure 107/50 - Constitutional General appearance: Present: cooperative, no acute distress - EENT Eyes: Present: PERRLA - Neck Neck: Present: normal ROM. Absent: lymphadenopathy, rigidity - Respiratory Respiratory: bilateral: CTA - Cardiovascular Heart sounds: normal: S1, S2 - Gastrointestinal General gastrointestinal: Present: soft. Absent: tenderness - Musculoskeletal Musculoskeletal: Present: generalized weakness - Psychiatric Psychiatric: Present: A&O x's 3 - Labs CBC & Chem 7: 07/11/24 04:05 07/11/24 04:05 Labs: Abnormal Lab Results - Last 24 Hours (Table) 07/10/24 07/11/24 07/11/24 Range/Units 04:30 04:05 04:05 RBC 3.13 L (4.30-5.90) m/uL Hgb 11.1 L (13.0-17.5) gm/dL Hct 32.9 L (39.0-53.0) % MCV 105.3 H (80.0-100.0) fL MCH 35.4 H (25.0-35.0) pg RDW 18.1 H (11.5-15.5) % Lymphocytes # 0.9 L (1.0-4.8) k/uL Macrocytosis Marked A Sodium 133 L (137-145) mmol/L BUN 67 H (9-20) mg/dL Creatinine 3.30 H (0.66-1.25) mg/dL Glucose 102 H (74-99) mg/dL Total Bilirubin 3.7 H (0.2-1.3) mg/dL Alkaline Phosphatase 203 H (38-126) U/L Total Protein 6.0 L (6.3-8.2) g/dL Albumin 2.8 L (3.5-5.0) g/dL TSH 6.870 H (0.465-4.680) mIU/L Assessment and Plan (1) Hypotension Current Visit: Yes Status: Acute Code(s): I95.9 - HYPOTENSION, UNSPECIFIED SNOMED Code(s): 03946848 (2) Weakness Current Visit: Yes Status: Acute Code(s): R53.1 - WEAKNESS SNOMED Code(s): 64329972 (3) Cellulitis Current Visit: Yes Status: Acute Code(s): L03.90 - CELLULITIS, UNSPECIFIED SNOMED Code(s): 839427474 (4) Acute kidney injury Current Visit: Yes Status: Acute Code(s): N17.9 - ACUTE KIDNEY FAILURE, UNSPECIFIED SNOMED Code(s): 19246657 (5) Acute on chronic heart failure Current Visit: Yes Status: Acute Code(s): I50.9 - HEART FAILURE, UNSPECIFIED SNOMED Code(s): 693085041 (6) Hyponatremia Current Visit: Yes Status: Acute Code(s): E87.1 - HYPO-OSMOLALITY AND HYPONATREMIA SNOMED Code(s): 04556313 Plan: Check CBC and CMP in the morning. Appreciate multiple consultants. Patient seen and evaluated by nurse practitioner, physician in agreement with plan
--- NOTE | 2024-07-11 08:43 | P.PN ---
Subjective Patient is seen in follow-up for acute kidney injury on chronic kidney disease. On IV Lasix. Urine output 25 to 35 cc an hour. Oral intake fair. Started on hemodialysis July 06, 2024. On Levophed. Tolerated 2 L ultrafiltration yesterday. Vital signs are stable. On Levophed. General: No acute distress. HEENT: Head exam is unremarkable. LUNGS: No audible rhonchi or wheezes. HEART: Rate and Rhythm are regular. ABDOMEN: Obese, nontender. EXTREMITITES: 2+ edema. Lower extremities wrapped. Objective - Vital Signs Vital signs: Vital Signs Temp 98.6 F 07/11/24 04:00 Pulse 92 07/11/24 07:00 Resp 16 07/11/24 07:00 BP 107/47 07/10/24 16:22 Pulse Ox 96 07/11/24 07:00 FiO2 2 07/11/24 04:00 Intake & Output 07/10/24 07/11/24 07/11/24 18:59 06:59 18:59 Intake Total 1311.782 626.937 16 Output Total 4825 405 25 Balance -3513.218 221.937 -9 Weight 130.7 kg 180.53 kg Intake: IV 176 192 16 KVO 0.9 NS 110 120 10 pressure bag 66 72 6 Intake, IV Titration 235.782 198.937 Amount Norepinephrine 32 mg In 235.782 198.937 Sodium Chloride 0.9% 218 ml @ 0.03 MCG/KG/MIN 2.63 mls/hr IV .Q24H [facility] Rx#: [id number] Oral 500 236 Hemodialysis 400 Output: Urine 425 405 25 Hemodialysis 2400 Hemodialysis Net Amount 1999 Other: Voiding Method Indwelling Catheter Indwelling Catheter ABP, PAP, CO, CI - Last Documented Arterial Blood Pressure 107/50 - Labs CBC & Chem 7: 07/11/24 04:05 07/11/24 04:05 Labs: Abnormal Lab Results - Last 24 Hours (Table) 07/10/24 07/11/24 07/11/24 Range/Units 04:30 04:05 04:05 RBC 3.13 L (4.30-5.90) m/uL Hgb 11.1 L (13.0-17.5) gm/dL Hct 32.9 L (39.0-53.0) % MCV 105.3 H (80.0-100.0) fL MCH 35.4 H (25.0-35.0) pg RDW 18.1 H (11.5-15.5) % Lymphocytes # 0.9 L (1.0-4.8) k/uL Macrocytosis Marked A Sodium 133 L (137-145) mmol/L BUN 67 H (9-20) mg/dL Creatinine 3.30 H (0.66-1.25) mg/dL Glucose 102 H (74-99) mg/dL Total Bilirubin 3.7 H (0.2-1.3) mg/dL Alkaline Phosphatase 203 H (38-126) U/L Total Protein 6.0 L (6.3-8.2) g/dL Albumin 2.8 L (3.5-5.0) g/dL TSH 6.870 H (0.465-4.680) mIU/L Assessment and Plan Plan: Assessment: 1. Acute kidney injury secondary to ATN secondary to hypotension and cardiorenal syndrome. Creatinine up to 4.3 dated July 06, 2024. Started on hemodialysis July 06, 2024 via femoral dialysis catheter. No hydronephrosis noted on ultrasound. Trace protein on UA. 2. 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 Creatinine 1.5 in March 2024. 3. Acute on chronic diastolic CHF and moderate mitral consultation, severe tri cuspid regurgitation and pulmonary hypertension. 4. Volume overload. Improved with diuresis and ultrafiltration. 5. Right lower extremity cellulitis and Enterococcus UTI s/p antibiotics. ID following. 6. Hypervolemic hyponatremia. Stable. Plan: Hemodialysis today and again tomorrow. Maintain IV Lasix. Maintain metolazone. Low-salt diet and 1500 cc fluid restriction. Maintain midodrine. Wean Levophed. Avoid nephrotoxins. Continue to monitor renal function and urine output.
[2024-07-11] MEDS ORDERED: LEVOTHYROXINE IVP 100 MCG/5 ML VIAL IV SCH (11:00)
[2024-07-11] MEDS: HYDROCORTISONE SUCCINATE 100 MG/2 ML VIAL IV ONE (11:18)
[2024-07-11] MEDS: LEVOTHYROXINE IVP 100 MCG/5 ML VIAL IV SCH (11:18)
--- NOTE | 2024-07-11 12:40 | P.PN ---
Subjective Progress Note Date: 07/11/24 This is a 78-year-old male patient with massive fluid overload, ongoing difficulty with chronic kidney failure as the patient has developed an acute on top of chronic renal disease with extensive third spacing and anasarca and possibly a component of cardiorenal syndrome. 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 Baseline creatinine is around 1.5 back in March 2024. The patient presented to us with volume overload, acute on top of chronic diastolic heart failure with moderate mitral regurgitation. Patient also was diagnosed having an Enterococcus urinary tract infection currently on IV Unasyn. Initial rate, attempts to diurese this patient with Lasix have failed due to ongoing hypotension. The patient was started on midodrine 10 mg p.o. 4 times daily. Subsequently, I was asked to transfer this patient to the ICU for hemodynamic support and pressor use as the patient was going to be started on Lasix 5 mg infusion in combination with Mala oxolyn 5 mg p.o. daily. Based on that, the patient was transferred to the ICU. Lasix s drip was started and the patient will be started also on norepinephrine for blood pressure support. He is currently awake and alert. Following commands. He is on oxygen at 2 L/min nasal cannula. His chest x-ray showing small bilateral pleural effusion and this is less x-ray that was done on 06/26/2024. Patient was evaluated today on 07/03/24, remains in the ICU, he was seen by Dr. Jp nance on consultation yesterday, he was placed on Lasix drip at 5 mg/h, making about 50 to 75 cc of urine per hour. Blood pressure is marginal he is requiring norepinephrine at 0.06 mcg/kg/min. Patient is not complaining of shortness of breath, he is on 2 L nasal cannula, he seems to be extremely swollen edematous and has anasarca. Nonetheless the patient is feeling better compared to yesterday. And seemsto be responding to the Lasix drip. WBC count is 8.4 hemoglobin 12.2 electrolytes are normal BUN is 92 creatinine 3.53., Relatively unchanged compared to yesterday.Patient's baseline creatinine on 06/26 was 2.19. Patient is receiving Unasyn for what seems to be acute urinary tract infection secondary to Enterococcus. Faecalis. Patient was evaluated today on 07/04/2024, remains in the ICU remains on Lasix drip and dose has been increased to 10 mg/h. Patient is requiring norepinephrine at 0.07 mcg/kg/min he is also on IV fluid at KVO. Antibiotics cooley he is on Unasyn for his UTI, and is also on Eliquis. Patient tells me that he is feeling better, breathing easier, and he continues to respond to Lasix but urine output did not improve much by increasing the dose of Lasix., WBC is 8.4 hemoglobin 11.9 basic metabolic profile is normal bicarb is 27 BUN is 95 creatinine 3.77 Gradually rising. His renal status is being addressed and followed by nephrology chest x-ray showed evidence of cardiomegaly and pulmonary vascular congestion. Patient remains on 2 L nasal cannula, and he is O2 saturat ion is 97%. Blood pressure is marginal, his mean arterial pressure is 68, patient is requiring norepinephrine Patient today on 07/05/2024, patient is not doing too great today. Patient is getting worse, he is developing worsening hypotension and requiring now higher doses of norepinephrine and higher doses of vasopressin. Patient required lines including central line and arterial line, and these were done today. Urine output remains about 35 to 40 cc/h, in spite of Lasix at 10 mg/h. His renal functioning is getting worse creatinine is up to 3.9 today. Again the patient is requiring norepinephrine and we have added vasopressin, patient seems to be developing acute kidney injury with ATN and hypotension as well as cardiorenal syndrome. Nephrology is considering to proceed with renal replacement therapy since the patient continues to remain volume overloaded. And urine output is not that great. His creatinine baseline in March was 1.5. Looking at his echocardiogram, patient has chronic diastolic congestive heart failure with moderate mitral regurgitation, and severe pulmonary hypertension. Patient is also receiving antibiotics for his right lower extremity cellulitis, in addition he has Enterococcus urinary tract infection addressed by infectious disease on the case.WBC count is 7.1 hemoglobin is 11.1 basic metabolic profile is normal bicarb is 23 BUN is 101 creatinine 3.94. Chest x-ray is showing worsening pleural effusion and pulmonary edema Reevaluate today on 07/06/2024, patient remains in the ICU, still on pressors requiring norepinephrine at 0.24 mcg/kg/min, patient did not require vasopressin yesterday. Still on midodrine. A right femoral dialysis catheter was placed yesterday by vascular surgery. Patient is supposed to be started on hemodialysis today. Clinically today, he seems to be feeling better compared to yesterday.Denies any cough wheezing or shortness of breath, patient feels generally weak. WBC count is 7.9 hemoglobin 11.8 electrolytes are normal BUN is 102 creatinine 4.31 patient remains on Lasix drip at 10 mg/h, and the plan is to hemodialyze today Patient was evaluated today on 07/07/2024, patient remains in the ICU on 2 L nasal cannula patient underwent hemodialysis yesterday and 2 L were removed. His BUN is 90 creatinine 4.13. Remains on Lasix drip at 10 mg/h he is still requiring norepinephrine at 0.21 mcg/kg/min, blood pressure remains marginal at best. Patient is still covered with Unasyn still on Eliquis, patient was placed on Lopressor at 100 mg p.o. or twice daily by cardiology his echocardiogram showed significant valvular heart disease, pulmonary hypertension, ejection fraction is 50 to 55%. Patient is complaining today of some bloating and abdominal discomfort, but no nausea no vomiting. No significant pain. WBC count today is 8.2 hemoglobin 11.3 electrolytes are normal BUN is 90 creatinine 4.13, chest x-ray showed mild pulmonary vascular congestion Patient was evaluated today on 07/08/2024, patient remains in the ICU still requiring pressors, he is on norepinephrine at 0.22 mcg/kg/min blood pressure remains marginal, patient is intermittently getting hemodialysis, remains on multiple cardiac meds but he is off Lasix drip at this point. Pulmonary cooley he is on 2 L nasal cannula, does not seem to be in distress. Chest x-ray today showed minimal right basilar atelectasis, no evidence of pulmonary edema. Apparently the patient did not tolerate hemodialysis treatment yesterday well, because of low blood pressure. WBC count is 9.3 hemoglobin 11.4 basic metabolic profile is normal BUN is 82 creatinine 3.49 Patient was seen today on 07/09/2024, patient remains in the ICU, remains on nor epinephrine and he is intermittently on hemodialysis. Off Lasix drip. On 3 L nasal cannula, on norepinephrine 0.13 mcg/kg/min on midodrine on IV fluid at KVO. Patient is also on Eliquis. Urine output is about 25 to 40 cc/h. His CVP is 15 patient had 2 L removed by hemodialysis on 07/08 and his CVP today is ranging between 12-15. Pulmonary cooley is not in distress, however his blood pressure remains extremely low requiring pressors hence I cannot move the patient out of the ICU as long as he is on pressors The patient is seen today July 10, 2024 in follow-up in the intensive care unit. Awake and alert in no acute distress. Currently resting fairly comfortably in bed. He is maintaining good O2 saturations in the 90s on 2 L/min per nasal cannula. He is still requiring norepinephrine at 20 mcg/min. Normal saline at KVO. Urine culture was positive for Enterococcus faecalis. Blood cultures revealed no growth. White count 10.1. Hemoglobin 11.4. Sodium 133. Potassium 4.3. Bicarb 26. BUN 83. Creatinine 3.79. Glucose 104. He is continued on Lasix 60 mg every 12 hours. Anticoagulated with Eliquis. Remains on midodrine 10 mg 4 times daily. The patient is seen today July 11, 2024 in follow-up in the intensive care unit. He is currently resting in bed. Awake and alert in no acute distress. Currently undergoing hemodialysis. He is still requiring norepinephrine at 0.17 mcg/kg/min. He has normal saline at KVO. He is maintaining O2 saturation in the 90s on 2 L/min per nasal cannula. His TSH did come back abnormal at 6.87, cortisol level was 8.8. He will be initiated on Synthroid 75 mcg IV daily and Solu-Cortef 50 mg IV every 6 hours. Continued on midodrine. He remains on Lasix 60 mg IV every 12 hours. Anticoagulated with Eliquis. White count 8.4. Hemoglobin 11.1. Platelets 169. Sodium 133. Potassium 4.2. Bicarb 27. BUN 67. Creatinine 3.30. Glucose 102. Objective - Vital Signs Vital signs: Vital Signs Temp 98.1 F 07/11/24 08:00 Pulse 108 H 07/11/24 11:00 Resp 17 07/11/24 11:00 BP 107/47 07/10/24 16:22 Pulse Ox 96 07/11/24 11:00 FiO2 2 07/11/24 04:00 Intake & Output 07/10/24 07/11/24 07/11/24 18:59 06:59 18:59 Intake Total 1311.782 626.937 320 Output Total 4825 405 140 Balance -3513.218 221.937 180 Weight 130.7 kg 180.53 kg Intake: IV 176 192 80 KVO 0.9 NS 110 120 50 pressure bag 66 72 30 Intake, IV Titration 235.782 198.937 Amount Norepinephrine 32 mg In 235.782 198.937 Sodium Chloride 0.9% 218 ml @ 0.03 MCG/KG/MIN 2.63 mls/hr IV .Q24H [facility] Rx#: [id number] Oral 500 236 240 Hemodialysis 400 Output: Urine 425 405 140 Hemodialysis 2400 Hemodialysis Net Amount 1999 Other: Voiding Method Indwelling Catheter Indwelling Catheter ABP, PAP, CO, CI - Last Documented Arterial Blood Pressure 117/54 - Exam GENERAL EXAM: Alert, 78-year-old male, on 2 L nasal cannula, receiving hemodialysis, comfortable in no apparent distress. HEAD: Normocephalic. EYES: Normal reaction of pupils, equal size. NOSE: Clear with pink turbinates. THROAT: No erythema or exudates. NECK: No masses, no JVD. CHEST: No chest wall deformity. LUNGS: Equal air entry with no crackles, wheeze, rhonchi or dullness. CVS: S1 and S2 normal with no audible murmur, regular rhythm. ABDOMEN: No hepatosplenomegaly, normal bowel sounds, no guarding or rigidity. SPINE: No scoliosis or deformity SKIN: No rashes CENTRAL NERVOUS SYSTEM: No focal deficits, tone is normal in all 4 extremities. EXTREMITIES: Hemodialysis catheter in place. There is no peripheral edema. No clubbing, no cyanosis. Peripheral pulses are intact. - Labs CBC & Chem 7: 07/11/24 04:05 07/11/24 04:05 Labs: Abnormal Lab Results - Last 24 Hours (Table) 07/11/24 07/11/24 Range/Units 04:05 04:05 RBC 3.13 L (4.30-5.90) m/uL Hgb 11.1 L (13.0-17.5) gm/dL Hct 32.9 L (39.0-53.0) % MCV 105.3 H (80.0-100.0) fL MCH 35.4 H (25.0-35.0) pg RDW 18.1 H (11.5-15.5) % Lymphocytes # 0.9 L (1.0-4.8) k/uL Macrocytosis Marked A Sodium 133 L (137-145) mmol/L BUN 67 H (9-20) mg/dL Creatinine 3.30 H (0.66-1.25) mg/dL Glucose 102 H (74-99) mg/dL Total Bilirubin 3.7 H (0.2-1.3) mg/dL Alkaline Phosphatase 203 H (38-126) U/L Total Protein 6.0 L (6.3-8.2) g/dL Albumin 2.8 L (3.5-5.0) g/dL Assessment and Plan Assessment: Acute on chronic diastolic congestive heart failure with hypotension, requiring pressors remains on norepinephrine at 0.17 mcg/kg/min Acute on chronic stage IIIb kidney disease with massive volume overload and initiated on hemodialysis Hyperlipidemia Chronic atrial fibrillation, maintained on anticoagulation with Eliquis Enterococcus urinary tract infection currently on IV Unasyn. Severe pulmonary hypertension Morbid obesity Gout History of obstructive sleep apnea, not tolerant to CPAP therapy Previous history of WPW and SVT Osteoarthritis Previous history of DVT of lower extremities Glaucoma Plan: The patient was seen and evaluated Labs and medications reviewed Currently on 2 L nasal cannula Titrate the FiO2 as tolerated Titrate down the norepinephrine as tolerated Add Synthroid IV 75 mcg Solu-Cortef 50 mg IV every 6 hours Hemodialysis today Remains on IV diuretics Eliquis for anticoagulation Will continue to follow I have personally seen and examined the patient, performed the documentation and the assessment and plan as written. Number of minutes spent on the visit: 10.
[2024-07-11] MEDS: HYDROCORTISONE SUCCINATE 100 MG/2 ML VIAL IV SCH (18:28)
[2024-07-12 04:14] LABS: Anisocytosis Slight; HGB 10.8 gm/dL (13.0-17.5); MCH 35.1 pg (25.0-35.0); MCHC 32.8 g/dL (31.0-37.0); MCV 107.1 fL (80.0-100.0); Mean Platelet Volume 8.8; Platelet Count 151 k/uL (150-450); RBC 3.09 m/uL (4.30-5.90); RDW 17.2 % (11.5-15.5); WBC 7.3 k/uL (3.8-10.6)
[2024-07-12 04:19] LABS: Macrocytosis Marked
[2024-07-12 05:00] LABS: ALT 7 U/L (4-49); AST 35 U/L (17-59); African American GFR (CKD) 20 (>60 ml/min/1.73 sqM); Albumin 2.7 g/dL (3.5-5.0); Alkaline Phosphatase 199 U/L (38-126); Anion Gap 6 mmol/L; Blood Urea Nitrogen 66 mg/dL (9-20); Calcium 8.7 mg/dL (8.4-10.2); Carbon Dioxide 27 mmol/L (22-30); Chloride 100 mmol/L (98-107); Glucose 130 mg/dL (74-99); Non-African American GFR(CKD) 17 (>60 ml/min/1.73 sqM); Potassium 4.2 mmol/L (3.5-5.1); Sodium 133 mmol/L (137-145); Total Bilirubin 3.2 mg/dL (0.2-1.3); Total Protein 5.8 g/dL (6.3-8.2)
--- NOTE | 2024-07-12 09:57 | P.PN ---
Subjective Patient is seen in follow-up for acute kidney injury on chronic kidney disease. On IV Lasix. Urine output 15-25 cc an hour. Oral intake fair. Started on hemodialysis July 06, 2024. On Levophed. Tolerated 2 L ultrafiltration yesterday. Vital signs are stable. On Levophed. General: No acute distress. HEENT: Head exam is unremarkable. On room air. LUNGS: No audible rhonchi or wheezes. HEART: Rate and Rhythm are regular. ABDOMEN: Obese, nontender. EXTREMITITES: 2+ edema. Lower extremities wrapped. Objective - Vital Signs Vital signs: Vital Signs Temp 97.7 F 07/12/24 08:00 Pulse 72 07/12/24 09:15 Resp 18 07/12/24 09:15 BP 82/54 07/12/24 09:15 Pulse Ox 96 07/12/24 09:15 FiO2 28 07/12/24 00:23 Intake & Output 07/11/24 07/12/24 07/12/24 18:59 06:59 18:59 Intake Total 1137.717 409.584 32 Output Total 4810 440 40 Balance -3672.283 -30.416 -8 Weight 176.4 kg Intake: IV 192 208 32 KVO 0.9 NS 120 130 20 pressure bag 72 78 12 Intake, IV Titration 185.717 83.584 Amount Norepinephrine 32 mg In 185.717 83.584 Sodium Chloride 0.9% 218 ml @ 0.03 MCG/KG/MIN 2.63 mls/hr IV .Q24H [facility] Rx#: [id number] Oral 360 118 Hemodialysis 400 Output: Urine 410 440 40 Hemodialysis 2400 Hemodialysis Net Amount 1999 Other: Voiding Method Indwelling Catheter Indwelling Catheter Indwelling Catheter # Bowel Movements 1 1 ABP, PAP, CO, CI - Last Documented Arterial Blood Pressure 107/43 - Labs CBC & Chem 7: 07/12/24 03:47 07/12/24 04:35 Labs: Abnormal Lab Results - Last 24 Hours (Table) 07/12/24 07/12/24 Range/Units 03:47 04:35 RBC 3.09 L (4.30-5.90) m/uL Hgb 10.8 L (13.0-17.5) gm/dL Hct 33.0 L (39.0-53.0) % MCV 107.1 H (80.0-100.0) fL MCH 35.1 H (25.0-35.0) pg RDW 17.2 H (11.5-15.5) % Macrocytosis Marked A Sodium 133 L (137-145) mmol/L BUN 66 H (9-20) mg/dL Creatinine 3.31 H (0.66-1.25) mg/dL Glucose 130 H (74-99) mg/dL Total Bilirubin 3.2 H (0.2-1.3) mg/dL Alkaline Phosphatase 199 H (38-126) U/L Total Protein 5.8 L (6.3-8.2) g/dL Albumin 2.7 L (3.5-5.0) g/dL Assessment and Plan Plan: Assessment: 1. Acute kidney injury secondary to ATN secondary to hypotension and cardiorenal syndrome. Creatinine up to 4.3 dated July 06, 2024. Started on hemodialysis July 06, 2024 via femoral dialysis catheter. No hydronephrosis noted on ultrasound. Trace protein on UA. 2. 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 Creatinine 1.5 in March 2024. 3. Acute on chronic diastolic CHF and moderate mitral consultation, severe tricuspid regurgitation and pulmonary hypertension. 4. Volume overload. Improved with diuresis and ultrafiltration. 5. Right lower extremity cellulitis and Enterococcus UTI s/p antibiotics. ID following. 6. Hypervolemic hyponatremia. Stable. Plan: Currently seen while undergoing hemodialysis. Plan for next treatment on Wednesday. Maintain IV Lasix. Maintain metolazone. Low-salt diet and 1500 cc fluid restriction. Maintain midodrine. Wean Levophed. Avoid nephrotoxins. Continue to monitor renal function and urine output.
--- NOTE | 2024-07-12 11:29 | P.PN ---
Subjective Progress Note Date: 07/12/24 This is a 78-year-old male patient with massive fluid overload, ongoing difficulty with chronic kidney failure as the patient has developed an acute on top of chronic renal disease with extensive third spacing and anasarca and possibly a component of cardiorenal syndrome. 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 Baseline creatinine is around 1.5 back in March 2024. The patient presented to us with volume overload, acute on top of chronic diastolic heart failure with moderate mitral regurgitation. Patient also was diagnosed having an Enterococcus urinary tract infection currently on IV Unasyn. Initial rate, attempts to diurese this patient with Lasix have failed due to ongoing hypotension. The patient was started on midodrine 10 mg p.o. 4 times daily. Subsequently, I was asked to transfer this patient to the ICU for hemodynamic support and pressor use as the patient was going to be started on Lasix 5 mg infusion in combination with Mala oxolyn 5 mg p.o. daily. Based on that, the patient was transferred to the ICU. Lasix s drip was started and the patient will be started also on norepinephrine for blood pressure support. He is currently awake and alert. Following commands. He is on oxygen at 2 L/min nasal cannula. His chest x-ray showing small bilateral pleural effusion and this is less x-ray that was done on 06/26/2024. Patient was evaluated today on 07/03/24, remains in the ICU, he was seen by Dr. Jp nance on consultation yesterday, he was placed on Lasix drip at 5 mg/h, making about 50 to 75 cc of urine per hour. Blood pressure is marginal he is requiring norepinephrine at 0.06 mcg/kg/min. Patient is not complaining of shortness of breath, he is on 2 L nasal cannula, he seems to be extremely swollen edematous and has anasarca. Nonetheless the patient is feeling better compared to yesterday. And seemsto be responding to the Lasix drip. WBC count is 8.4 hemoglobin 12.2 electrolytes are normal BUN is 92 creatinine 3.53., Relatively unchanged compared to yesterday.Patient's baseline creatinine on 06/26 was 2.19. Patient is receiving Unasyn for what seems to be acute urinary tract infection secondary to Enterococcus. Faecalis. Patient was evaluated today on 07/04/2024, remains in the ICU remains on Lasix drip and dose has been increased to 10 mg/h. Patient is requiring norepinephrine at 0.07 mcg/kg/min he is also on IV fluid at KVO. Antibiotics cooley he is on Unasyn for his UTI, and is also on Eliquis. Patient tells me that he is feeling better, breathing easier, and he continues to respond to Lasix but urine output did not improve much by increasing the dose of Lasix., WBC is 8.4 hemoglobin 11.9 basic metabolic profile is normal bicarb is 27 BUN is 95 creatinine 3.77 Gradually rising. His renal status is being addressed and followed by nephrology chest x-ray showed evidence of cardiomegaly and pulmonary vascular congestion. Patient remains on 2 L nasal cannula, and he is O2 saturat ion is 97%. Blood pressure is marginal, his mean arterial pressure is 68, patient is requiring norepinephrine Patient today on 07/05/2024, patient is not doing too great today. Patient is getting worse, he is developing worsening hypotension and requiring now higher doses of norepinephrine and higher doses of vasopressin. Patient required lines including central line and arterial line, and these were done today. Urine output remains about 35 to 40 cc/h, in spite of Lasix at 10 mg/h. His renal functioning is getting worse creatinine is up to 3.9 today. Again the patient is requiring norepinephrine and we have added vasopressin, patient seems to be developing acute kidney injury with ATN and hypotension as well as cardiorenal syndrome. Nephrology is considering to proceed with renal replacement therapy since the patient continues to remain volume overloaded. And urine output is not that great. His creatinine baseline in March was 1.5. Looking at his echocardiogram, patient has chronic diastolic congestive heart failure with moderate mitral regurgitation, and severe pulmonary hypertension. Patient is also receiving antibiotics for his right lower extremity cellulitis, in addition he has Enterococcus urinary tract infection addressed by infectious disease on the case.WBC count is 7.1 hemoglobin is 11.1 basic metabolic profile is normal bicarb is 23 BUN is 101 creatinine 3.94. Chest x-ray is showing worsening pleural effusion and pulmonary edema Reevaluate today on 07/06/2024, patient remains in the ICU, still on pressors requiring norepinephrine at 0.24 mcg/kg/min, patient did not require vasopressin yesterday. Still on midodrine. A right femoral dialysis catheter was placed yesterday by vascular surgery. Patient is supposed to be started on hemodialysis today. Clinically today, he seems to be feeling better compared to yesterday.Denies any cough wheezing or shortness of breath, patient feels generally weak. WBC count is 7.9 hemoglobin 11.8 electrolytes are normal BUN is 102 creatinine 4.31 patient remains on Lasix drip at 10 mg/h, and the plan is to hemodialyze today Patient was evaluated today on 07/07/2024, patient remains in the ICU on 2 L nasal cannula patient underwent hemodialysis yesterday and 2 L were removed. His BUN is 90 creatinine 4.13. Remains on Lasix drip at 10 mg/h he is still requiring norepinephrine at 0.21 mcg/kg/min, blood pressure remains marginal at best. Patient is still covered with Unasyn still on Eliquis, patient was placed on Lopressor at 100 mg p.o. or twice daily by cardiology his echocardiogram showed significant valvular heart disease, pulmonary hypertension, ejection fraction is 50 to 55%. Patient is complaining today of some bloating and abdominal discomfort, but no nausea no vomiting. No significant pain. WBC count today is 8.2 hemoglobin 11.3 electrolytes are normal BUN is 90 creatinine 4.13, chest x-ray showed mild pulmonary vascular congestion Patient was evaluated today on 07/08/2024, patient remains in the ICU still requiring pressors, he is on norepinephrine at 0.22 mcg/kg/min blood pressure remains marginal, patient is intermittently getting hemodialysis, remains on multiple cardiac meds but he is off Lasix drip at this point. Pulmonary cooley he is on 2 L nasal cannula, does not seem to be in distress. Chest x-ray today showed minimal right basilar atelectasis, no evidence of pulmonary edema. Apparently the patient did not tolerate hemodialysis treatment yesterday well, because of low blood pressure. WBC count is 9.3 hemoglobin 11.4 basic metabolic profile is normal BUN is 82 creatinine 3.49 Patient was seen today on 07/09/2024, patient remains in the ICU, remains on nor epinephrine and he is intermittently on hemodialysis. Off Lasix drip. On 3 L nasal cannula, on norepinephrine 0.13 mcg/kg/min on midodrine on IV fluid at KVO. Patient is also on Eliquis. Urine output is about 25 to 40 cc/h. His CVP is 15 patient had 2 L removed by hemodialysis on 07/08 and his CVP today is ranging between 12-15. Pulmonary cooley is not in distress, however his blood pressure remains extremely low requiring pressors hence I cannot move the patient out of the ICU as long as he is on pressors The patient is seen today July 10, 2024 in follow-up in the intensive care unit. Awake and alert in no acute distress. Currently resting fairly comfortably in bed. He is maintaining good O2 saturations in the 90s on 2 L/min per nasal cannula. He is still requiring norepinephrine at 20 mcg/min. Normal saline at KVO. Urine culture was positive for Enterococcus faecalis. Blood cultures revealed no growth. White count 10.1. Hemoglobin 11.4. Sodium 133. Potassium 4.3. Bicarb 26. BUN 83. Creatinine 3.79. Glucose 104. He is continued on Lasix 60 mg every 12 hours. Anticoagulated with Eliquis. Remains on midodrine 10 mg 4 times daily. The patient is seen today July 11, 2024 in follow-up in the intensive care unit. He is currently resting in bed. Awake and alert in no acute distress. Currently undergoing hemodialysis. He is still requiring norepinephrine at 0.17 mcg/kg/min. He has normal saline at KVO. He is maintaining O2 saturation in the 90s on 2 L/min per nasal cannula. His TSH did come back abnormal at 6.87, cortisol level was 8.8. He will be initiated on Synthroid 75 mcg IV daily and Solu-Cortef 50 mg IV every 6 hours. Continued on midodrine. He remains on Lasix 60 mg IV every 12 hours. Anticoagulated with Eliquis. White count 8.4. Hemoglobin 11.1. Platelets 169. Sodium 133. Potassium 4.2. Bicarb 27. BUN 67. Creatinine 3.30. Glucose 102. The patient is seen today July 12, 2024 in follow-up in the intensive care unit. He is awake and alert in no acute distress. Currently receiving hemodialysis with another 2 L planned to be removed. He is continued on norepinephrine down to 17 mcg/min. He had been initiated on Synthroid and Solu- Cortef with improvement in his blood pressure. White count 7.3. Hemoglobin 10.8. Platelets 151. Sodium 133. Potassium 4.2. Bicarb 27. BUN 66. Creatinine 3.31. Glucose 130. He remains on IV diuretics. Anticoagulated with Eliquis. Currently in a -3.7 L balance. Objective - Vital Signs Vital signs: Vital Signs Temp 97.7 F 07/12/24 08:00 Pulse 92 07/12/24 11:00 Resp 23 07/12/24 11:00 BP 82/54 07/12/24 09:30 Pulse Ox 97 07/12/24 11:00 FiO2 28 07/12/24 00:23 Intake & Output 07/11/24 07/12/24 07/12/24 18:59 06:59 18:59 Intake Total 1137.717 409.584 107.321 Output Total 4810 440 80 Balance -3672.283 -30.416 27.321 Weight 176.4 kg Intake: IV 192 208 64 KVO 0.9 NS 120 130 40 pressure bag 72 78 24 Intake, IV Titration 185.717 83.584 43.321 Amount Norepinephrine 32 mg In 185.717 83.584 43.321 Sodium Chloride 0.9% 218 ml @ 0.03 MCG/KG/MIN 2.63 mls/hr IV .Q24H [facility] Rx#: [id number] Oral 360 118 Hemodialysis 400 Output: Urine 410 440 80 Hemodialysis 2400 Hemodialysis Net Amount 1999 Other: Voiding Method Indwelling Catheter Indwelling Catheter Indwelling Catheter # Bowel Movements 1 1 ABP, PAP, CO, CI - Last Documented Arterial Blood Pressure 97/45 - Exam GENERAL EXAM: Alert, pleasant 78-year-old male, on room air, receiving hemodialysis, in no apparent distress. HEAD: Normocephalic. EYES: Normal reaction of pupils, equal size. NOSE: Clear with pink turbinates. THROAT: No erythema or exudates. NECK: No masses, no JVD. CHEST: No chest wall deformity. LUNGS: Equal air entry with crackles in the right lung base. CVS: S1 and S2 normal with no audible murmur, regular rhythm. ABDOMEN: No hepatosplenomegaly, normal bowel sounds, no guarding or rigidity. SPINE: No scoliosis or deformity SKIN: No rashes CENTRAL NERVOUS SYSTEM: No focal deficits, tone is normal in all 4 extremities. EXTREMITIES: Hemodialysis catheter in place. There is no peripheral edema. No clubbing, no cyanosis. Peripheral pulses are intact. - Labs CBC & Chem 7: 07/12/24 03:47 07/12/24 04:35 Labs: Abnormal Lab Results - Last 24 Hours (Table) 07/12/24 07/12/24 Range/Units 03:47 04:35 RBC 3.09 L (4.30-5.90) m/uL Hgb 10.8 L (13.0-17.5) gm/dL Hct 33.0 L (39.0-53.0) % MCV 107.1 H (80.0-100.0) fL MCH 35.1 H (25.0-35.0) pg RDW 17.2 H (11.5-15.5) % Macrocytosis Marked A Sodium 133 L (137-145) mmol/L BUN 66 H (9-20) mg/dL Creatinine 3.31 H (0.66-1.25) mg/dL Glucose 130 H (74-99) mg/dL Total Bilirubin 3.2 H (0.2-1.3) mg/dL Alkaline Phosphatase 199 H (38-126) U/L Total Protein 5.8 L (6.3-8.2) g/dL Albumin 2.7 L (3.5-5.0) g/dL Assessment and Plan Assessment: Acute on chronic diastolic congestive heart failure with hypotension, requiring pressors remains on norepinephrine at 17 mcg/min Acute on chronic stage IIIb kidney disease with massive volume overload and initiated on hemodialysis Hyperlipidemia Chronic atrial fibrillation, maintained on anticoagulation with Eliquis Enterococcus urinary tract infection currently on IV Unasyn. Severe pulmonary hypertension Morbid obesity Gout History of obstructive sleep apnea, not tolerant to CPAP therapy Previous history of WPW and SVT Osteoarthritis Previous history of DVT of lower extremities Glaucoma Plan: The patient was seen and evaluated Labs and medications reviewed Stable and on room air Receiving hemodialysis today Remains on IV diuretics Eliquis for anticoagulation Will continue to follow I have personally seen and examined the patient, performed the documentation and the assessment and plan as written. Number of minutes spent on the visit: 10.
--- NOTE | 2024-07-12 12:19 | P.PN ---
Subjective Progress Note Date: 07/11/24 Principal diagnosis: Reason for follow-up is left leg cellulitis Patient is a 78-year-old male with a past medical history significant for atrial fibrillation hypertension hyperlipidemia osteoarthritis sleep apnea presenting to the hospital for evaluation of weakness and fall patient has been diagnosed with a left lower extremity cellulitis prompted this consultation. On today's evaluation that is 07/11/2024, the patient continues to be afebrile, the patient is on 2 L nasal current oxygen and breathing comfortably, the Pt denies having any chest pain or cough, the patient denies having any abdominal pain no vomiting or any diarrhea undergoing dialysis without any problem. Patient white count is 8.4, creatinine 3.30 Objective - Vital Signs Vital signs: Vital Signs Temp 98 F 07/11/24 12:57 Pulse 86 07/11/24 13:00 Resp 18 07/11/24 13:00 BP 118/55 07/11/24 12:57 Pulse Ox 96 07/11/24 13:00 FiO2 2 07/11/24 04:00 Intake & Output 07/10/24 07/11/24 07/11/24 18:59 06:59 18:59 Intake Total 1311.782 626.937 872.963 Output Total 4825 405 4580 Balance -3513.218 221.937 -3707.037 Weight 130.7 kg 180.53 kg Intake: IV 176 192 112 KVO 0.9 NS 110 120 70 pressure bag 66 72 42 Intake, IV Titration 235.782 198.937 120.963 Amount Norepinephrine 32 mg In 235.782 198.937 120.963 Sodium Chloride 0.9% 218 ml @ 0.03 MCG/KG/MIN 2.63 mls/hr IV .Q24H [facility] Rx#: [id number] Oral 500 236 240 Hemodialysis 400 400 Output: Urine 425 405 180 Hemodialysis 2400 2400 Hemodialysis Net Amount 1999 1999 Other: Voiding Method Indwelling Catheter Indwelling Catheter ABP, PAP, CO, CI - Last Documented Arterial Blood Pressure 97/50 - Exam GENERAL DESCRIPTION: An elderly male lying in bed in no distress RESPIRATORY SYSTEM: Unlabored breathing , decreased breath sounds at bases HEART: S1 S2 regular rate and rhythm , ABDOMEN: Soft , no tenderness EXTREMITIES: Left leg swelling redness slightly decreased no open wound or any drainage - Labs CBC & Chem 7: 07/12/24 03:47 07/12/24 04:35 Labs: Abnormal Lab Results - Last 24 Hours (Table) 07/11/24 07/11/24 Range/Units 04:05 04:05 RBC 3.13 L (4.30-5.90) m/uL Hgb 11.1 L (13.0-17.5) gm/dL Hct 32.9 L (39.0-53.0) % MCV 105.3 H (80.0-100.0) fL MCH 35.4 H (25.0-35.0) pg RDW 18.1 H (11.5-15.5) % Lymphocytes # 0.9 L (1.0-4.8) k/uL Macrocytosis Marked A Sodium 133 L (137-145) mmol/L BUN 67 H (9-20) mg/dL Creatinine 3.30 H (0.66-1.25) mg/dL Glucose 102 H (74-99) mg/dL Total Bilirubin 3.7 H (0.2-1.3) mg/dL Alkaline Phosphatase 203 H (38-126) U/L Total Protein 6.0 L (6.3-8.2) g/dL Albumin 2.8 L (3.5-5.0) g/dL Assessment and Plan (1) Left leg cellulitis Current Visit: Yes Status: Acute Code(s): L03.116 - CELLULITIS OF LEFT LOWER LIMB SNOMED Code(s): 27598041815466144 Plan: 1patient presented to hospital with generalized weakness and falls in this patient who did have chronic swelling to the lower extremity now with worsening swelling redness to the left leg concerning for cellulitis likely streptococcal disease with diffuse swelling and redness no evidence of any purulence 2-patient is afebrile white count is normal patient has received adequate anti biotic therapy for underlying cellulitis and a question of possible UTI, currently being monitored closely off antibiotic therapy and seem to be doing well as far as infection is concerned Dictation was produced using [id number] software. please excuse any grammatical, word or spelling errors. Time with Patient: Less than 30
--- NOTE | 2024-07-12 15:19 | P.PN ---
Subjective Progress Note Date: 07/12/24 HISTORY OF PRESENTING ILLNESS This is a 78-year-old patient of Dr. Deleon with past medical history of morbid obesity, permanent atrial fibrillation on Coumadin, hypertension, dyslipidemia, history of DVT, dilated thoracic aorta and valvular heart disease, pulmonary hypertension. We have been asked to evaluate the patient for heart failure. Patient gives history that he had a fall at home. He states his knee gave out on him. He complains of shortness of breath. He feels poorly in general. He is not very active at home. He denies having any fever. No history of smoking. No palpitations. Edema which she states is at his baseline. No blood in his stool or urine. No history of stroke or seizure. 07/01/2024 Was seen and examined resting comfortably in bed. Blood pressure is improved but remains on the low side. He is being followed by nephrology who has started a Lasix drip at 10 mL/h. They have increased metolazone to 5 mg p.o. daily and discontinued Farxiga due to current infection. Overall patient continues to complain of shortness of breath. Continues to complain of orthopnea but improving. Continues to complain of significant lower extremity edema labs this morning showed a creatinine of 2.92. INR 2.0. 07/02/2024 The patient was seen and examined resting comfortably in bed. He is overall feeling his breathing is a bit better. Continues to have significant edema. Continues to be followed by nephrology with adjustments made to his diuretics as well as the addition of albumin. Renal function is worse with a creatinine of 3.54. Blood pressure remains low. 07/03 Patient seen and examined. Patient remains on metoprolol 100 twice a day with borderline blood pressures and patient has been on norepinephrine as well as a Lasix drip at 5 and Zaroxolyn. Urine output approximately 50 mL/h. Denies a chest pain or pressure. Still significant large from edema. Creatinine relatively stable at 3.5. 07/04 patient seen and examined. Patient's echo reviewed and does have severe right ventricular dilation, significantly increased right ventricular pressures with some right ventricular hypokinesis and atypical septal motion which appears consistent with RV overload. There is additional mild pericardial effusion however no obvious Cannot physiology. Patient continues on the IV Lasix drip at 10 with addition of Zaroxolyn with marginal urine outputs and not much negative urine output. Denies any chest pain or pressure. Still remains on metoprolol. Blood pressures borderline and has been on low-dose norepinephrine. 07/05 Patient seen and examined. Hemoglobin 11.1, BUN 101, creatinine 3.9. Still having urine output of approximately 50 mL per hour. Metoprolol was decreased and heart rates closer to 100 in attempt to increase cardiac output, decrease negative inotrope. 07/06 patient seen and examined. Patient had dialysis catheter placed and undergoing dialysis for the first time today with 2 L output. Remains on norepinephrine. Denies any chest pain or pressure. 07/07 Patient seen and examined. Patient underwent dialysis yesterday with approximately 2 L output. Hemoglobin stable 11.3, BUN 90, creatinine 4.1. He does state he feels better today. Heart rates have been up in the 90-110 range fairly consistently. 07/08 Patient seen and examined in the intensive care unit. He underwent HD yesterday with 1 L of fluid removed. His urine output has been 25 to 35 cc/h. He does complain of increasing difficulty in breathing today. Heart rate is running between 90 and 105, blood pressure 104/45, pulse ox 95% on 2 L nasal cannula. Repeat blood work reveals hemoglobin 11.4. BUN 32 creatinine 3.49, sodium 133, potassium 4.2. Repeat chest x-ray reveals thyromegaly, right basilar atelectasis. 07/09 Patient is seen and examined in the intensive care unit. Last evening, patient had hemodialysis with 2 L removed. He is on Levophed which was decreased. Blood pressure 82/54, heart rate 101. Repeat blood work reveals hemoglobin 11.2, platelet count 133. Renal function is improving with BUN 74, creatinine 2.95. Sodium is 133, potassium 4.1. Repeat chest x-ray reveals mild right pleural effusion, cardiomegaly. July 10, 2024 Patient is seen and examined at bedside. BP 105/45, heart rate 88 bpm, hemoglobin 11.4, BUN 83, creatinine 3.79. Creatinine up trended from 2.9 yesterday. Patient is getting hemodialysis at the time of evaluation. Denies any chest pain chest pressure. Reports feeling generalized weakness. July 12, 2024 Patient seen and examined at bedside this a.m. At the time of evaluation, patient is getting hemodialysis. He still appears volume overloaded. PHYSICAL EXAMINATION Vital signs reviewed. CONSTITUTIONAL: No apparent distress. HEENT: Mild elevated JVP CHEST EXAMINATION: Mild crackles audible in bilateral lung espinal, diminished breath sounds due to poor inspiratory effort HEART EXAMINATION: Regular rate and rhythm. Mild systolic murmur audible. ABDOMEN: Soft, nontender. Positive bowel sounds. EXTREMITIES: 2+ lower extremity edema and no calf tenderness. NEUROLOGIC EXAMINATION: Patient is awake, alert and oriented x3. ASSESSMENT Generalized weakness and fall Permanent atrial fibrillation transitioned to Eliquis Acute on chronic diastolic heart failure, mainly right sided Supratherapeutic INR Acute kidney injury started on HD 07/06 Chronic kidney disease stage IIIb Hypertension Dyslipidemia History of DVT Dilated thoracic aorta Valvular heart disease with moderate MR, moderate to severe pulmonary hypertension small pericardial effusion Thrombocytopenia Plan: Patient still significantly volume overloaded and monitor response of hemodialysis. Patient is on IV Lasix 60 mg every 12 hours per nephrology. Discontinue metolazone. Continue metoprolol 100 twice a day Not able to add further GDMT because of patient's labile blood pressure. He is requiring norepinephrine during hemodialysis. Monitor patient's response to dialysis, monitor BALAJI, daily weights, electrolytes and renal function. Prognosis guarded Objective - Vital Signs Vital signs: Vital Signs Temp 97.6 F 07/12/24 12:00 Pulse 93 07/12/24 15:00 Resp 16 07/12/24 15:00 BP 82/54 07/12/24 09:30 Pulse Ox 96 07/12/24 15:00 FiO2 28 07/12/24 00:23 Intake & Output 07/11/24 07/12/24 07/12/24 18:59 06:59 18:59 Intake Total 1137.717 409.584 208.667 Output Total 4810 440 145 Balance -3672.283 -30.416 63.667 Weight 176.4 kg Intake: IV 192 208 128 KVO 0.9 NS 120 130 80 pressure bag 72 78 48 Intake, IV Titration 185.717 83.584 80.667 Amount Norepinephrine 32 mg In 185.717 83.584 80.667 Sodium Chloride 0.9% 218 ml @ 0.03 MCG/KG/MIN 2.63 mls/hr IV .Q24H [facility] Rx#: [id number] Oral 360 118 Hemodialysis 400 Output: Urine 410 440 145 Hemodialysis 2400 Hemodialysis Net Amount 1999 Other: Voiding Method Indwelling Catheter Indwelling Catheter Indwelling Catheter # Bowel Movements 1 1 ABP, PAP, CO, CI - Last Documented Arterial Blood Pressure 118/52 - Labs CBC & Chem 7: 07/12/24 03:47 07/12/24 04:35 Labs: Abnormal Lab Results - Last 24 Hours (Table) 07/12/24 07/12/24 07/12/24 Range/Units 03:47 04:35 04:35 RBC 3.09 L (4.30-5.90) m/uL Hgb 10.8 L (13.0-17.5) gm/dL Hct 33.0 L (39.0-53.0) % MCV 107.1 H (80.0-100.0) fL MCH 35.1 H (25.0-35.0) pg RDW 17.2 H (11.5-15.5) % Macrocytosis Marked A Sodium 133 L (137-145) mmol/L BUN 66 H (9-20) mg/dL Creatinine 3.31 H (0.66-1.25) mg/dL Glucose 130 H (74-99) mg/dL Phosphorus 5.0 H (2.5-4.5) mg/dL Total Bilirubin 3.2 H (0.2-1.3) mg/dL Alkaline Phosphatase 199 H (38-126) U/L Total Protein 5.8 L (6.3-8.2) g/dL Albumin 2.7 L (3.5-5.0) g/dL
[2024-07-13 05:19] LABS: Anisocytosis Slight; Basophils % (A) 0 %; Eosinophils % (A) 0 %; HCT 34.5 % (39.0-53.0); HGB 11.5 gm/dL (13.0-17.5); Lymphocytes # (A) 0.7 k/uL (1.0-4.8); Lymphocytes % (A) 6 %; MCHC 33.3 g/dL (31.0-37.0); Macrocytosis Marked; Mean Platelet Volume 9.9; Monocytes # (A) 0.6 k/uL (0-1.0); Monocytes % (A) 5 %; Neutrophils % (A) 89 %; Platelet Count 236 k/uL (150-450); RBC 3.28 m/uL (4.30-5.90); RDW 18.1 % (11.5-15.5); WBC 12.4 k/uL (3.8-10.6)
[2024-07-13 05:20] LABS: MCV 105.2 fL (80.0-100.0)
[2024-07-13 05:40] LABS: African American GFR (CKD) 23 (>60 ml/min/1.73 sqM); Anion Gap 5 mmol/L; Blood Urea Nitrogen 65 mg/dL (9-20); Carbon Dioxide 28 mmol/L (22-30); Chloride 99 mmol/L (98-107); Glucose 116 mg/dL (74-99); Non-African American GFR(CKD) 20 (>60 ml/min/1.73 sqM); Sodium 132 mmol/L (137-145)
--- NOTE | 2024-07-13 08:29 | P.PN ---
Subjective Progress Note Date: 07/13/24 This is a 78-year-old male who originally presented to the emergency department after a fall at home, reportedly his knee gave out. Patient also complained of shortness of breath and feels poorly overall. Patient became hypotensive and was transferred to the ICU. Creatinine remains elevated and he has been on Lasix drip. Patient lives with his at home, who he cares for. Patient seen this morning resting comfortably in bed. He is still hypotensive this morning. Creatinine today is 3.77. 07/10/2024 Patient was started on hemodialysis on 07/06. He is currently off of lasix drip but still on pressors. He is seen this morning laying in bed. He reports he is more fatigued today. 07/11/2024 Patient seen and evaluated laying in bed this morning. He is still on Levophed. Creatinine today is 3.3. He does appear more fatigued today. He did have dialysis yesterday. 07/13/2024 Patient seen and evaluated laying in bed this morning. He still remains on Levophed. He had dialysis yesterday. Creatinine today is 2.97. Patient appears to be in better spirits today. Objective - Vital Signs Vital signs: Vital Signs Temp 98.2 F 07/13/24 00:00 Pulse 87 07/13/24 07:00 Resp 21 07/13/24 07:00 BP 82/54 07/13/24 04:00 Pulse Ox 95 07/13/24 07:00 FiO2 28 07/12/24 00:23 Intake & Output 07/12/24 07/13/24 07/13/24 18:59 06:59 18:59 Intake Total 307.805 225.928 Output Total 200 85 Balance 107.805 140.928 Weight 175.767 kg Intake: IV 192 156 KVO 0.9 NS 120 120 pressure bag 72 36 Intake, IV Titration 115.805 69.928 Amount Norepinephrine 32 mg In 115.805 69.928 Sodium Chloride 0.9% 218 ml @ 0.03 MCG/KG/MIN 2.63 mls/hr IV .Q24H [facility] Rx#: [id number] Output: Urine 200 85 Other: Voiding Method Indwelling Catheter Indwelling Catheter ABP, PAP, CO, CI - Last Documented Arterial Blood Pressure 111/54 - Constitutional General appearance: Present: cooperative, no acute distress - EENT Eyes: Present: PERRLA - Neck Neck: Present: normal ROM. Absent: lymphadenopathy, rigidity - Respiratory Respiratory: bilateral: CTA - Cardiovascular Heart sounds: normal: S1, S2 - Gastrointestinal General gastrointestinal: Present: soft. Absent: tenderness - Integumentary Integumentary: Present: normal, normal turgor - Musculoskeletal Musculoskeletal: Present: generalized weakness - Psychiatric Psychiatric: Present: A&O x's 3 - Labs CBC & Chem 7: 07/13/24 05:09 07/13/24 05:09 Labs: Abnormal Lab Results - Last 24 Hours (Table) 07/12/24 07/13/24 07/13/24 Range/Units 04:35 05:09 05:09 WBC 12.4 H (3.8-10.6) k/uL RBC 3.28 L (4.30-5.90) m/uL Hgb 11.5 L (13.0-17.5) gm/dL Hct 34.5 L (39.0-53.0) % MCV 105.2 H (80.0-100.0) fL RDW 18.1 H (11.5-15.5) % Neutrophils # 11.0 H (1.3-7.7) k/uL Lymphocytes # 0.7 L (1.0-4.8) k/uL Macrocytosis Marked A Sodium 132 L (137-145) mmol/L BUN 65 H (9-20) mg/dL Creatinine 2.97 H (0.66-1.25) mg/dL Glucose 116 H (74-99) mg/dL Phosphorus 5.0 H (2.5-4.5) mg/dL Assessment and Plan (1) Hypotension Current Visit: Yes Status: Acute Code(s): I95.9 - HYPOTENSION, UNSPECIFIED SNOMED Code(s): 32867898 (2) Weakness Current Visit: Yes Status: Acute Code(s): R53.1 - WEAKNESS SNOMED Code(s): 31917687 (3) Cellulitis Current Visit: Yes Status: Acute Code(s): L03.90 - CELLULITIS, UNSPECIFIED SNOMED Code(s): 512494751 (4) Acute kidney injury Current Visit: Yes Status: Acute Code(s): N17.9 - ACUTE KIDNEY FAILURE, UNSPECIFIED SNOMED Code(s): 23117191 (5) Acute on chronic heart failure Current Visit: Yes Status: Acute Code(s): I50.9 - HEART FAILURE, UNSPECIFIED SNOMED Code(s): 289935840 (6) Hyponatremia Current Visit: Yes Status: Acute Code(s): E87.1 - HYPO-OSMOLALITY AND HYPONATREMIA SNOMED Code(s): 68445728 Plan: Check CBC and CMP in the morning. Appreciate multiple consultants. Patient seen and evaluated by nurse practitioner, physician in agreement with pl an
--- NOTE | 2024-07-13 09:47 | P.PN ---
Subjective Patient is seen in follow-up for acute kidney injury on chronic kidney disease. On IV Lasix. Urine output 10-20 an hour. Oral intake fair. Started on hemodialysis July 06, 2024. On Levophed. No problems with dialysis yesterday. Vital signs are stable. On Levophed. General: No acute distress. HEENT: Head exam is unremarkable. On room air. LUNGS: No audible rhonchi or wheezes. HEART: Rate and Rhythm are regular. ABDOMEN: Obese, nontender. EXTREMITITES: 1+ edema. Lower extremities wrapped. Objective - Vital Signs Vital signs: Vital Signs Temp 98.2 F 07/13/24 00:00 Pulse 87 07/13/24 07:00 Resp 21 07/13/24 07:00 BP 82/54 07/13/24 04:00 Pulse Ox 93 L 07/13/24 09:20 FiO2 28 07/12/24 00:23 Intake & Output 07/12/24 07/13/24 07/13/24 18:59 06:59 18:59 Intake Total 307.805 225.928 16 Output Total 200 85 20 Balance 107.805 140.928 -4 Weight 175.767 kg Intake: IV 192 156 16 KVO 0.9 NS 120 120 10 pressure bag 72 36 6 Intake, IV Titration 115.805 69.928 Amount Norepinephrine 32 mg In 115.805 69.928 Sodium Chloride 0.9% 218 ml @ 0.03 MCG/KG/MIN 2.63 mls/hr IV .Q24H [facility] Rx#: [id number] Output: Urine 200 85 20 Other: Voiding Method Indwelling Catheter Indwelling Catheter ABP, PAP, CO, CI - Last Documented Arterial Blood Pressure 111/54 - Labs CBC & Chem 7: 07/13/24 05:09 07/13/24 05:09 Labs: Abnormal Lab Results - Last 24 Hours (Table) 07/12/24 07/13/24 07/13/24 Range/Units 04:35 05:09 05:09 WBC 12.4 H (3.8-10.6) k/uL RBC 3.28 L (4.30-5.90) m/uL Hgb 11.5 L (13.0-17.5) gm/dL Hct 34.5 L (39.0-53.0) % MCV 105.2 H (80.0-100.0) fL RDW 18.1 H (11.5-15.5) % Neutrophils # 11.0 H (1.3-7.7) k/uL Lymphocytes # 0.7 L (1.0-4.8) k/uL Macrocytosis Marked A Sodium 132 L (137-145) mmol/L BUN 65 H (9-20) mg/dL Creatinine 2.97 H (0.66-1.25) mg/dL Glucose 116 H (74-99) mg/dL Phosphorus 5.0 H (2.5-4.5) mg/dL Assessment and Plan Plan: Assessment: 1. Acute kidney injury secondary to ATN secondary to hypotension and cardiorenal syndrome. Creatinine up to 4.3 dated July 06, 2024. Started on hemodialysis July 06, 2024 via femoral dialysis catheter. No hydronephrosis noted on ultrasound. Trace protein on UA. 2. 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 Creatinine 1.5 in March 2024. 3. Acute on chronic diastolic CHF and moderate mitral consultation, severe tricuspid regurgitation and pulmonary hypertension. 4. Volume overload. Improved with diuresis and ultrafiltration. 5. Right lower extremity cellulitis and Enterococcus UTI s/p antibiotics. ID following. 6. Hypervolemic hyponatremia. Stable. 7. Hyperphosphatemia secondary to acute kidney injury. Phosphorus level 5.0 dated July 12, 2024. Plan: Hemodialysis tomorrow. Maintain IV Lasix. Maintain metolazone. Low-salt diet and 1500 cc fluid restriction. Maintain midodrine. Wean Levophed. Avoid nephrotoxins. Add Renvela with meals. Continue to monitor renal function and urine output. Will need permacath placed and removal of temporary dialysis catheter -scheduled for tomorrow.
--- NOTE | 2024-07-13 12:18 | P.PN ---
Subjective Progress Note Date: 07/13/24 This is a 78-year-old male patient with massive fluid overload, ongoing difficulty with chronic kidney failure as the patient has developed an acute on top of chronic renal disease with extensive third spacing and anasarca and possibly a component of cardiorenal syndrome. 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 Baseline creatinine is around 1.5 back in March 2024. The patient presented to us with volume overload, acute on top of chronic diastolic heart failure with moderate mitral regurgitation. Patient also was diagnosed having an Enterococcus urinary tract infection currently on IV Unasyn. Initial rate, attempts to diurese this patient with Lasix have failed due to ongoing hypotension. The patient was started on midodrine 10 mg p.o. 4 times daily. Subsequently, I was asked to transfer this patient to the ICU for hemodynamic support and pressor use as the patient was going to be started on Lasix 5 mg infusion in combination with Mala oxolyn 5 mg p.o. daily. Based on that, the patient was transferred to the ICU. Lasix s drip was started and the patient will be started also on norepinephrine for blood pressure support. He is currently awake and alert. Following commands. He is on oxygen at 2 L/min nasal cannula. His chest x-ray showing small bilateral pleural effusion and this is less x-ray that was done on 06/26/2024. Patient was evaluated today on 07/03/24, remains in the ICU, he was seen by Dr. Jp nance on consultation yesterday, he was placed on Lasix drip at 5 mg/h, making about 50 to 75 cc of urine per hour. Blood pressure is marginal he is requiring norepinephrine at 0.06 mcg/kg/min. Patient is not complaining of shortness of breath, he is on 2 L nasal cannula, he seems to be extremely swollen edematous and has anasarca. Nonetheless the patient is feeling better compared to yesterday. And seemsto be responding to the Lasix drip. WBC count is 8.4 hemoglobin 12.2 electrolytes are normal BUN is 92 creatinine 3.53., Relatively unchanged compared to yesterday.Patient's baseline creatinine on 06/26 was 2.19. Patient is receiving Unasyn for what seems to be acute urinary tract infection secondary to Enterococcus. Faecalis. Patient was evaluated today on 07/04/2024, remains in the ICU remains on Lasix drip and dose has been increased to 10 mg/h. Patient is requiring norepinephrine at 0.07 mcg/kg/min he is also on IV fluid at KVO. Antibiotics cooley he is on Unasyn for his UTI, and is also on Eliquis. Patient tells me that he is feeling better, breathing easier, and he continues to respond to Lasix but urine output did not improve much by increasing the dose of Lasix., WBC is 8.4 hemoglobin 11.9 basic metabolic profile is normal bicarb is 27 BUN is 95 creatinine 3.77 Gradually rising. His renal status is being addressed and followed by nephrology chest x-ray showed evidence of cardiomegaly and pulmonary vascular congestion. Patient remains on 2 L nasal cannula, and he is O2 saturat ion is 97%. Blood pressure is marginal, his mean arterial pressure is 68, patient is requiring norepinephrine Patient today on 07/05/2024, patient is not doing too great today. Patient is getting worse, he is developing worsening hypotension and requiring now higher doses of norepinephrine and higher doses of vasopressin. Patient required lines including central line and arterial line, and these were done today. Urine output remains about 35 to 40 cc/h, in spite of Lasix at 10 mg/h. His renal functioning is getting worse creatinine is up to 3.9 today. Again the patient is requiring norepinephrine and we have added vasopressin, patient seems to be developing acute kidney injury with ATN and hypotension as well as cardiorenal syndrome. Nephrology is considering to proceed with renal replacement therapy since the patient continues to remain volume overloaded. And urine output is not that great. His creatinine baseline in March was 1.5. Looking at his echocardiogram, patient has chronic diastolic congestive heart failure with moderate mitral regurgitation, and severe pulmonary hypertension. Patient is also receiving antibiotics for his right lower extremity cellulitis, in addition he has Enterococcus urinary tract infection addressed by infectious disease on the case.WBC count is 7.1 hemoglobin is 11.1 basic metabolic profile is normal bicarb is 23 BUN is 101 creatinine 3.94. Chest x-ray is showing worsening pleural effusion and pulmonary edema Reevaluate today on 07/06/2024, patient remains in the ICU, still on pressors requiring norepinephrine at 0.24 mcg/kg/min, patient did not require vasopressin yesterday. Still on midodrine. A right femoral dialysis catheter was placed yesterday by vascular surgery. Patient is supposed to be started on hemodialysis today. Clinically today, he seems to be feeling better compared to yesterday.Denies any cough wheezing or shortness of breath, patient feels generally weak. WBC count is 7.9 hemoglobin 11.8 electrolytes are normal BUN is 102 creatinine 4.31 patient remains on Lasix drip at 10 mg/h, and the plan is to hemodialyze today Patient was evaluated today on 07/07/2024, patient remains in the ICU on 2 L nasal cannula patient underwent hemodialysis yesterday and 2 L were removed. His BUN is 90 creatinine 4.13. Remains on Lasix drip at 10 mg/h he is still requiring norepinephrine at 0.21 mcg/kg/min, blood pressure remains marginal at best. Patient is still covered with Unasyn still on Eliquis, patient was placed on Lopressor at 100 mg p.o. or twice daily by cardiology his echocardiogram showed significant valvular heart disease, pulmonary hypertension, ejection fraction is 50 to 55%. Patient is complaining today of some bloating and abdominal discomfort, but no nausea no vomiting. No significant pain. WBC count today is 8.2 hemoglobin 11.3 electrolytes are normal BUN is 90 creatinine 4.13, chest x-ray showed mild pulmonary vascular congestion Patient was evaluated today on 07/08/2024, patient remains in the ICU still requiring pressors, he is on norepinephrine at 0.22 mcg/kg/min blood pressure remains marginal, patient is intermittently getting hemodialysis, remains on multiple cardiac meds but he is off Lasix drip at this point. Pulmonary cooley he is on 2 L nasal cannula, does not seem to be in distress. Chest x-ray today showed minimal right basilar atelectasis, no evidence of pulmonary edema. Apparently the patient did not tolerate hemodialysis treatment yesterday well, because of low blood pressure. WBC count is 9.3 hemoglobin 11.4 basic metabolic profile is normal BUN is 82 creatinine 3.49 Patient was seen today on 07/09/2024, patient remains in the ICU, remains on nor epinephrine and he is intermittently on hemodialysis. Off Lasix drip. On 3 L nasal cannula, on norepinephrine 0.13 mcg/kg/min on midodrine on IV fluid at KVO. Patient is also on Eliquis. Urine output is about 25 to 40 cc/h. His CVP is 15 patient had 2 L removed by hemodialysis on 07/08 and his CVP today is ranging between 12-15. Pulmonary cooley is not in distress, however his blood pressure remains extremely low requiring pressors hence I cannot move the patient out of the ICU as long as he is on pressors The patient is seen today July 10, 2024 in follow-up in the intensive care unit. Awake and alert in no acute distress. Currently resting fairly comfortably in bed. He is maintaining good O2 saturations in the 90s on 2 L/min per nasal cannula. He is still requiring norepinephrine at 20 mcg/min. Normal saline at KVO. Urine culture was positive for Enterococcus faecalis. Blood cultures revealed no growth. White count 10.1. Hemoglobin 11.4. Sodium 133. Potassium 4.3. Bicarb 26. BUN 83. Creatinine 3.79. Glucose 104. He is continued on Lasix 60 mg every 12 hours. Anticoagulated with Eliquis. Remains on midodrine 10 mg 4 times daily. The patient is seen today July 11, 2024 in follow-up in the intensive care unit. He is currently resting in bed. Awake and alert in no acute distress. Currently undergoing hemodialysis. He is still requiring norepinephrine at 0.17 mcg/kg/min. He has normal saline at KVO. He is maintaining O2 saturation in the 90s on 2 L/min per nasal cannula. His TSH did come back abnormal at 6.87, cortisol level was 8.8. He will be initiated on Synthroid 75 mcg IV daily and Solu-Cortef 50 mg IV every 6 hours. Continued on midodrine. He remains on Lasix 60 mg IV every 12 hours. Anticoagulated with Eliquis. White count 8.4. Hemoglobin 11.1. Platelets 169. Sodium 133. Potassium 4.2. Bicarb 27. BUN 67. Creatinine 3.30. Glucose 102. The patient is seen today July 12, 2024 in follow-up in the intensive care unit. He is awake and alert in no acute distress. Currently receiving hemodialysis with another 2 L planned to be removed. He is continued on norepinephrine down to 17 mcg/min. He had been initiated on Synthroid and Solu- Cortef with improvement in his blood pressure. White count 7.3. Hemoglobin 10.8. Platelets 151. Sodium 133. Potassium 4.2. Bicarb 27. BUN 66. Creatinine 3.31. Glucose 130. He remains on IV diuretics. Anticoagulated with Eliquis. Currently in a -3.7 L balance. The patient is seen today July 13, 2024 in follow-up in the intensive care unit. He is resting comfortably in bed. Awake and alert in no acute distress. Maintaining O2 saturations in the 90s on 2 L/min per nasal cannula. He has normal saline at 10 mL/h. He is still requiring norepinephrine at 14 mcg/min. He is continued on Synthroid and Solu-Cortef. White count 12.4. Hemoglobin 11.5. Platelets 236. Sodium 132. Potassium 4.0. Bicarb 28. BUN 65. Creatinine 2.97. Glucose 116. He remains on Lasix 60 mg IV every 12 hours. Currently in a positive balance. Plan is for hemodialysis again tomorrow. Objective - Vital Signs Vital signs: Vital Signs Temp 98.7 F 07/13/24 08:00 Pulse 86 07/13/24 11:30 Resp 35 H 07/13/24 11:30 BP 82/54 07/13/24 09:45 Pulse Ox 96 07/13/24 11:30 FiO2 28 07/12/24 00:23 Intake & Output 07/12/24 07/13/24 07/13/24 18:59 06:59 18:59 Intake Total 307.805 225.928 64 Output Total 200 85 65 Balance 107.805 140.928 -1 Weight 175.767 kg Intake: IV 192 156 64 KVO 0.9 NS 120 120 40 pressure bag 72 36 24 Intake, IV Titration 115.805 69.928 Amount Norepinephrine 32 mg In 115.805 69.928 Sodium Chloride 0.9% 218 ml @ 0.03 MCG/KG/MIN 2.63 mls/hr IV .Q24H [facility] Rx#: [id number] Output: Urine 200 85 65 Other: Voiding Method Indwelling Catheter Indwelling Catheter Indwelling Catheter ABP, PAP, CO, CI - Last Documented Arterial Blood Pressure 92/43 - Exam GENERAL EXAM: Alert, pleasant 78-year-old male, resting in bed, on 2 L/min per nasal cannula. EYES: Normal reaction of pupils, equal size. NOSE: Clear with pink turbinates. THROAT: No erythema or exudates. NECK: No masses, no JVD. CHEST: No chest wall deformity. LUNGS: Equal air entry with crackles in the right lung base. CVS: S1 and S2 normal with no audible murmur, regular rhythm. ABDOMEN: No hepatosplenomegaly, normal bowel sounds, no guarding or rigidity. SPINE: No scoliosis or deformity SKIN: No rashes CENTRAL NERVOUS SYSTEM: No focal deficits, tone is normal in all 4 extremities. EXTREMITIES: Hemodialysis catheter in place. There is no peripheral edema. No clubbing, no cyanosis. Peripheral pulses are intact. - Labs CBC & Chem 7: 07/13/24 05:09 07/13/24 05:09 Labs: Abnormal Lab Results - Last 24 Hours (Table) 07/13/24 07/13/24 Range/Units 05:09 05:09 WBC 12.4 H (3.8-10.6) k/uL RBC 3.28 L (4.30-5.90) m/uL Hgb 11.5 L (13.0-17.5) gm/dL Hct 34.5 L (39.0-53.0) % MCV 105.2 H (80.0-100.0) fL RDW 18.1 H (11.5-15.5) % Neutrophils # 11.0 H (1.3-7.7) k/uL Lymphocytes # 0.7 L (1.0-4.8) k/uL Macrocytosis Marked A Sodium 132 L (137-145) mmol/L BUN 65 H (9-20) mg/dL Creatinine 2.97 H (0.66-1.25) mg/dL Glucose 116 H (74-99) mg/dL Assessment and Plan Assessment: Acute on chronic diastolic congestive heart failure with hypotension, requiring pressors remains on norepinephrine at 14 mcg/min Acute on chronic stage IIIb kidney disease with massive volume overload and initiated on hemodialysis Hyperlipidemia Chronic atrial fibrillation, maintained on anticoagulation with Eliquis Enterococcus urinary tract infection currently on IV Unasyn. Severe pulmonary hypertension Morbid obesity Gout History of obstructive sleep apnea, not tolerant to CPAP therapy Previous history of WPW and SVT Osteoarthritis Previous history of DVT of lower extremities Glaucoma Plan: The patient was seen and evaluated Labs and medications reviewed Remains on IV diuretics Plan is for hemodialysis tomorrow Titrate down the norepinephrine as tolerated Will continue to follow I have personally seen and examined the patient, performed the documentation and the assessment and plan as written. Number of minutes spent on the visit: 10.
--- NOTE | 2024-07-13 12:22 | P.PN ---
Subjective Progress Note Date: 07/13/24 Principal diagnosis: HPI: [This patient has multiple comorbid conditions. He has obesity permanent atrial fibrillation with rate control on Coumadin hypertension hyperlipidemia pulmonary hypertension and has been admitted to the hospital with volume overload had dialysis yesterday. Seems to be doing better today his atrial fibrillation is well-controlled he is hemodynamically stable resting comfortably. His dialysis was started about a week ago. However he seems to be showing improvement. He is hemodynamically stable]. PHYSICIAL EXAM: [Vitals are stable there is JVD S1-S2 heard normally but distantly short systolic murmur audible second heart sound is preserved lungs reveal diminished bibasal air entry abdomen is distended nontender lower extremities reveal mild to moderate edema diminished pulses Central nervous system Limited exam no focal deficits.]. IMPRESSION: 1. [Permanent atrial fibrillation with good rate control]. 2. [Pulmonary hypertension]. 3. [Acute on chronic renal failure with recent dialysis]. 4. [Obesity]. 5. []. RECOMMENDATIONS: [Continue current medical therapy. Prognosis remains guarded.]. Objective - Vital Signs Vital signs: Vital Signs Temp 98.7 F 07/13/24 08:00 Pulse 86 07/13/24 11:30 Resp 35 H 07/13/24 11:30 BP 82/54 07/13/24 09:45 Pulse Ox 96 07/13/24 11:30 FiO2 28 07/12/24 00:23 Intake & Output 07/12/24 07/13/24 07/13/24 18:59 06:59 18:59 Intake Total 307.805 225.928 64 Output Total 200 85 65 Balance 107.805 140.928 -1 Weight 175.767 kg Intake: IV 192 156 64 KVO 0.9 NS 120 120 40 pressure bag 72 36 24 Intake, IV Titration 115.805 69.928 Amount Norepinephrine 32 mg In 115.805 69.928 Sodium Chloride 0.9% 218 ml @ 0.03 MCG/KG/MIN 2.63 mls/hr IV .Q24H [facility] Rx#: [id number] Output: Urine 200 85 65 Other: Voiding Method Indwelling Catheter Indwelling Catheter Indwelling Catheter ABP, PAP, CO, CI - Last Documented Arterial Blood Pressure 92/43 - Labs CBC & Chem 7: 07/13/24 05:09 07/13/24 05:09 Labs: Abnormal Lab Results - Last 24 Hours (Table) 07/13/24 07/13/24 Range/Units 05:09 05:09 WBC 12.4 H (3.8-10.6) k/uL RBC 3.28 L (4.30-5.90) m/uL Hgb 11.5 L (13.0-17.5) gm/dL Hct 34.5 L (39.0-53.0) % MCV 105.2 H (80.0-100.0) fL RDW 18.1 H (11.5-15.5) % Neutrophils # 11.0 H (1.3-7.7) k/uL Lymphocytes # 0.7 L (1.0-4.8) k/uL Macrocytosis Marked A Sodium 132 L (137-145) mmol/L BUN 65 H (9-20) mg/dL Creatinine 2.97 H (0.66-1.25) mg/dL Glucose 116 H (74-99) mg/dL
[2024-07-13] MEDS: SEVELAMER 800 MG TAB PO SCH (20:51)
[2024-07-14 05:31] LABS: Anisocytosis Slight; HCT 31.7 % (39.0-53.0); HGB 10.6 gm/dL (13.0-17.5); MCH 35.2 pg (25.0-35.0); MCHC 33.3 g/dL (31.0-37.0); MCV 105.6 fL (80.0-100.0); Platelet Count 182 k/uL (150-450); RDW 18.1 % (11.5-15.5); WBC 10.2 k/uL (3.8-10.6)
[2024-07-14 05:42] LABS: ALT 9 U/L (4-49); AST 35 U/L (17-59); African American GFR (CKD) 17 (>60 ml/min/1.73 sqM); Albumin 2.7 g/dL (3.5-5.0); Alkaline Phosphatase 196 U/L (38-126); Anion Gap 7 mmol/L; Blood Urea Nitrogen 79 mg/dL (9-20); Calcium 8.9 mg/dL (8.4-10.2); Carbon Dioxide 26 mmol/L (22-30); Chloride 99 mmol/L (98-107); Glucose 109 mg/dL (74-99); Non-African American GFR(CKD) 14 (>60 ml/min/1.73 sqM); Potassium 4.2 mmol/L (3.5-5.1); Sodium 132 mmol/L (137-145); Total Bilirubin 2.7 mg/dL (0.2-1.3); Total Protein 5.9 g/dL (6.3-8.2)
[2024-07-14 06:19] LABS: Macrocytosis Marked
--- NOTE | 2024-07-14 08:59 | P.PN ---
Subjective Progress Note Date: 07/14/24 HPI: This patient has multiple comorbid conditions, significant obesity permanent atrial fibrillation with decent rate control. He has permanent atrial fibrillation rate control is good on Eliquis but this is being held because he is going for a permanent dialysis catheter. He has hypertension hyperlipidemia pulmonary hypertension. Clinically he seems to be doing a bit better. No chest pain his shortness of breath has improved. From a cardiac standpoint we will continue current medical regimen and we will see him as needed.. PHYSICIAL EXAM: Vitals are stable JVD is evident S1-S2 with irregular rhythm short systolic murmur at the base lungs reveal diminished air entry abdomen is soft lower extremity edema is has improved Central nervous system no focal deficits. IMPRESSION: 1. Permanent atrial fibrillation with good rate control. 2. Chronic kidney disease acute on chronic with dialysis started recently. 3. Obesity. 4. Pulmonary hypertension. 5.. RECOMMENDATIONS: Continue current regimen. Resume Eliquis once permacath is placed. Cardiac cooley no new suggestions rate control is good we will see him as needed. Objective - Vital Signs Vital signs: Vital Signs Temp 98.5 F 07/14/24 00:15 Pulse 91 07/14/24 07:00 Resp 14 07/14/24 07:00 BP 82/54 07/13/24 09:45 Pulse Ox 94 L 07/14/24 07:00 FiO2 21 07/14/24 08:21 Intake & Output 07/13/24 07/14/24 07/14/24 18:59 06:59 18:59 Intake Total 234.323 198.792 46.394 Output Total 135 120 10 Balance 99.323 78.792 36.394 Weight 174.7 kg Intake: IV 192 176 16 KVO 0.9 NS 120 110 10 pressure bag 72 66 6 Intake, IV Titration 42.323 22.792 30.394 Amount Norepinephrine 32 mg In 42.323 22.792 30.394 Sodium Chloride 0.9% 218 ml @ 0.03 MCG/KG/MIN 2.63 mls/hr IV .Q24H [facility] Rx#: [id number] Output: Urine 135 120 10 Other: Voiding Method Indwelling Catheter Indwelling Catheter ABP, PAP, CO, CI - Last Documented Arterial Blood Pressure 102/47 - Labs CBC & Chem 7: 07/14/24 05:00 07/14/24 05:00 Labs: Abnormal Lab Results - Last 24 Hours (Table) 07/14/24 07/14/24 Range/Units 05:00 05:00 RBC 3.00 L (4.30-5.90) m/uL Hgb 10.6 L (13.0-17.5) gm/dL Hct 31.7 L (39.0-53.0) % MCV 105.6 H (80.0-100.0) fL MCH 35.2 H (25.0-35.0) pg RDW 18.1 H (11.5-15.5) % Macrocytosis Marked A Sodium 132 L (137-145) mmol/L BUN 79 H (9-20) mg/dL Creatinine 3.85 H (0.66-1.25) mg/dL Glucose 109 H (74-99) mg/dL Total Bilirubin 2.7 H (0.2-1.3) mg/dL Alkaline Phosphatase 196 H (38-126) U/L Total Protein 5.9 L (6.3-8.2) g/dL Albumin 2.7 L (3.5-5.0) g/dL
--- NOTE | 2024-07-14 09:50 | P.PN ---
Subjective Patient is seen in follow-up for acute kidney injury on chronic kidney disease. On IV Lasix. Urine output 10-20 cc an hour. Oral intake fair. Started on hemodialysis July 06, 2024. On Levophed. Tolerating dialysis well. Vital signs are stable. On Levophed. General: No acute distress. HEENT: Head exam is unremarkable. On room air. LUNGS: No audible rhonchi or wheezes. HEART: Rate and Rhythm are regular. ABDOMEN: Obese, nontender. EXTREMITITES: 1+ edema. Lower extremities wrapped. Objective - Vital Signs Vital signs: Vital Signs Temp 97.6 F 07/14/24 08:00 Pulse 85 07/14/24 09:30 Resp 14 07/14/24 09:30 BP 82/54 07/13/24 09:45 Pulse Ox 96 07/14/24 09:30 FiO2 21 07/14/24 08:21 Intake & Output 07/13/24 07/14/24 07/14/24 18:59 06:59 18:59 Intake Total 234.323 198.792 78.394 Output Total 135 120 70 Balance 99.323 78.792 8.394 Weight 174.7 kg Intake: IV 192 176 48 KVO 0.9 NS 120 110 30 pressure bag 72 66 18 Intake, IV Titration 42.323 22.792 30.394 Amount Norepinephrine 32 mg In 42.323 22.792 30.394 Sodium Chloride 0.9% 218 ml @ 0.03 MCG/KG/MIN 2.63 mls/hr IV .Q24H [facility] Rx#: [id number] Output: Urine 135 120 70 Other: Voiding Method Indwelling Catheter Indwelling Catheter Indwelling Catheter ABP, PAP, CO, CI - Last Documented Arterial Blood Pressure 127/59 - Labs CBC & Chem 7: 07/14/24 05:00 07/14/24 05:00 Labs: Abnormal Lab Results - Last 24 Hours (Table) 07/14/24 07/14/24 Range/Units 05:00 05:00 RBC 3.00 L (4.30-5.90) m/uL Hgb 10.6 L (13.0-17.5) gm/dL Hct 31.7 L (39.0-53.0) % MCV 105.6 H (80.0-100.0) fL MCH 35.2 H (25.0-35.0) pg RDW 18.1 H (11.5-15.5) % Macrocytosis Marked A Sodium 132 L (137-145) mmol/L BUN 79 H (9-20) mg/dL Creatinine 3.85 H (0.66-1.25) mg/dL Glucose 109 H (74-99) mg/dL Total Bilirubin 2.7 H (0.2-1.3) mg/dL Alkaline Phosphatase 196 H (38-126) U/L Total Protein 5.9 L (6.3-8.2) g/dL Albumin 2.7 L (3.5-5.0) g/dL Assessment and Plan Plan: Assessment: 1. Acute kidney injury secondary to ATN secondary to hypotension and cardiorenal syndrome. Creatinine up to 4.3 dated July 06, 2024. Started on hemodialysis July 06, 2024 via femoral dialysis catheter. No hydronephrosis noted on ultrasound. Trace protein on UA. 2. 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 Creatinine 1.5 in March 2024. 3. Acute on chronic diastolic CHF and moderate mitral consultation, severe tricuspid regurgitation and pulmonary hypertension. 4. Volume overload. Improved with diuresis and ultrafiltration. 5. Right lower extremity cellulitis and Enterococcus UTI s/p antibiotics. ID f ollowing. 6. Hypervolemic hyponatremia. Stable. 7. Hyperphosphatemia secondary to acute kidney injury. Phosphorus level 5.0 dated July 12, 2024. On Renvela. Plan: Currently seen while undergoing hemodialysis. Will consider another treatment tomorrow depending on volume status. Maintain IV Lasix. Maintain metolazone. Low-salt diet and 1500 cc fluid restriction. Maintain midodrine. Wean Levophed. Avoid nephrotoxins. Continue to monitor renal function and urine output. Scheduled for permacath placement and removal of temporary dialysis catheter today.
--- NOTE | 2024-07-14 10:44 | P.PN ---
Subjective Progress Note Date: 07/14/24 This is a 78-year-old male patient with massive fluid overload, ongoing difficulty with chronic kidney failure as the patient has developed an acute on top of chronic renal disease with extensive third spacing and anasarca and possibly a component of cardiorenal syndrome. 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 Baseline creatinine is around 1.5 back in March 2024. The patient presented to us with volume overload, acute on top of chronic diastolic heart failure with moderate mitral regurgitation. Patient also was diagnosed having an Enterococcus urinary tract infection currently on IV Unasyn. Initial rate, attempts to diurese this patient with Lasix have failed due to ongoing hypotension. The patient was started on midodrine 10 mg p.o. 4 times daily. Subsequently, I was asked to transfer this patient to the ICU for hemodynamic support and pressor use as the patient was going to be started on Lasix 5 mg infusion in combination with Mala oxolyn 5 mg p.o. daily. Based on that, the patient was transferred to the ICU. Lasix s drip was started and the patient will be started also on norepinephrine for blood pressure support. He is currently awake and alert. Following commands. He is on oxygen at 2 L/min nasal cannula. His chest x-ray showing small bilateral pleural effusion and this is less x-ray that was done on 06/26/2024. Patient was evaluated today on 07/03/24, remains in the ICU, he was seen by Dr. Jp nance on consultation yesterday, he was placed on Lasix drip at 5 mg/h, making about 50 to 75 cc of urine per hour. Blood pressure is marginal he is requiring norepinephrine at 0.06 mcg/kg/min. Patient is not complaining of shortness of breath, he is on 2 L nasal cannula, he seems to be extremely swollen edematous and has anasarca. Nonetheless the patient is feeling better compared to yesterday. And seemsto be responding to the Lasix drip. WBC count is 8.4 hemoglobin 12.2 electrolytes are normal BUN is 92 creatinine 3.53., Relatively unchanged compared to yesterday.Patient's baseline creatinine on 06/26 was 2.19. Patient is receiving Unasyn for what seems to be acute urinary tract infection secondary to Enterococcus. Faecalis. Patient was evaluated today on 07/04/2024, remains in the ICU remains on Lasix drip and dose has been increased to 10 mg/h. Patient is requiring norepinephrine at 0.07 mcg/kg/min he is also on IV fluid at KVO. Antibiotics cooley he is on Unasyn for his UTI, and is also on Eliquis. Patient tells me that he is feeling better, breathing easier, and he continues to respond to Lasix but urine output did not improve much by increasing the dose of Lasix., WBC is 8.4 hemoglobin 11.9 basic metabolic profile is normal bicarb is 27 BUN is 95 creatinine 3.77 Gradually rising. His renal status is being addressed and followed by nephrology chest x-ray showed evidence of cardiomegaly and pulmonary vascular congestion. Patient remains on 2 L nasal cannula, and he is O2 saturat ion is 97%. Blood pressure is marginal, his mean arterial pressure is 68, patient is requiring norepinephrine Patient today on 07/05/2024, patient is not doing too great today. Patient is getting worse, he is developing worsening hypotension and requiring now higher doses of norepinephrine and higher doses of vasopressin. Patient required lines including central line and arterial line, and these were done today. Urine output remains about 35 to 40 cc/h, in spite of Lasix at 10 mg/h. His renal functioning is getting worse creatinine is up to 3.9 today. Again the patient is requiring norepinephrine and we have added vasopressin, patient seems to be developing acute kidney injury with ATN and hypotension as well as cardiorenal syndrome. Nephrology is considering to proceed with renal replacement therapy since the patient continues to remain volume overloaded. And urine output is not that great. His creatinine baseline in March was 1.5. Looking at his echocardiogram, patient has chronic diastolic congestive heart failure with moderate mitral regurgitation, and severe pulmonary hypertension. Patient is also receiving antibiotics for his right lower extremity cellulitis, in addition he has Enterococcus urinary tract infection addressed by infectious disease on the case.WBC count is 7.1 hemoglobin is 11.1 basic metabolic profile is normal bicarb is 23 BUN is 101 creatinine 3.94. Chest x-ray is showing worsening pleural effusion and pulmonary edema Reevaluate today on 07/06/2024, patient remains in the ICU, still on pressors requiring norepinephrine at 0.24 mcg/kg/min, patient did not require vasopressin yesterday. Still on midodrine. A right femoral dialysis catheter was placed yesterday by vascular surgery. Patient is supposed to be started on hemodialysis today. Clinically today, he seems to be feeling better compared to yesterday.Denies any cough wheezing or shortness of breath, patient feels generally weak. WBC count is 7.9 hemoglobin 11.8 electrolytes are normal BUN is 102 creatinine 4.31 patient remains on Lasix drip at 10 mg/h, and the plan is to hemodialyze today Patient was evaluated today on 07/07/2024, patient remains in the ICU on 2 L nasal cannula patient underwent hemodialysis yesterday and 2 L were removed. His BUN is 90 creatinine 4.13. Remains on Lasix drip at 10 mg/h he is still requiring norepinephrine at 0.21 mcg/kg/min, blood pressure remains marginal at best. Patient is still covered with Unasyn still on Eliquis, patient was placed on Lopressor at 100 mg p.o. or twice daily by cardiology his echocardiogram showed significant valvular heart disease, pulmonary hypertension, ejection fraction is 50 to 55%. Patient is complaining today of some bloating and abdominal discomfort, but no nausea no vomiting. No significant pain. WBC count today is 8.2 hemoglobin 11.3 electrolytes are normal BUN is 90 creatinine 4.13, chest x-ray showed mild pulmonary vascular congestion Patient was evaluated today on 07/08/2024, patient remains in the ICU still requiring pressors, he is on norepinephrine at 0.22 mcg/kg/min blood pressure remains marginal, patient is intermittently getting hemodialysis, remains on multiple cardiac meds but he is off Lasix drip at this point. Pulmonary cooley he is on 2 L nasal cannula, does not seem to be in distress. Chest x-ray today showed minimal right basilar atelectasis, no evidence of pulmonary edema. Apparently the patient did not tolerate hemodialysis treatment yesterday well, because of low blood pressure. WBC count is 9.3 hemoglobin 11.4 basic metabolic profile is normal BUN is 82 creatinine 3.49 Patient was seen today on 07/09/2024, patient remains in the ICU, remains on nor epinephrine and he is intermittently on hemodialysis. Off Lasix drip. On 3 L nasal cannula, on norepinephrine 0.13 mcg/kg/min on midodrine on IV fluid at KVO. Patient is also on Eliquis. Urine output is about 25 to 40 cc/h. His CVP is 15 patient had 2 L removed by hemodialysis on 07/08 and his CVP today is ranging between 12-15. Pulmonary cooley is not in distress, however his blood pressure remains extremely low requiring pressors hence I cannot move the patient out of the ICU as long as he is on pressors The patient is seen today July 10, 2024 in follow-up in the intensive care unit. Awake and alert in no acute distress. Currently resting fairly comfortably in bed. He is maintaining good O2 saturations in the 90s on 2 L/min per nasal cannula. He is still requiring norepinephrine at 20 mcg/min. Normal saline at KVO. Urine culture was positive for Enterococcus faecalis. Blood cultures revealed no growth. White count 10.1. Hemoglobin 11.4. Sodium 133. Potassium 4.3. Bicarb 26. BUN 83. Creatinine 3.79. Glucose 104. He is continued on Lasix 60 mg every 12 hours. Anticoagulated with Eliquis. Remains on midodrine 10 mg 4 times daily. The patient is seen today July 11, 2024 in follow-up in the intensive care unit. He is currently resting in bed. Awake and alert in no acute distress. Currently undergoing hemodialysis. He is still requiring norepinephrine at 0.17 mcg/kg/min. He has normal saline at KVO. He is maintaining O2 saturation in the 90s on 2 L/min per nasal cannula. His TSH did come back abnormal at 6.87, cortisol level was 8.8. He will be initiated on Synthroid 75 mcg IV daily and Solu-Cortef 50 mg IV every 6 hours. Continued on midodrine. He remains on Lasix 60 mg IV every 12 hours. Anticoagulated with Eliquis. White count 8.4. Hemoglobin 11.1. Platelets 169. Sodium 133. Potassium 4.2. Bicarb 27. BUN 67. Creatinine 3.30. Glucose 102. The patient is seen today July 12, 2024 in follow-up in the intensive care unit. He is awake and alert in no acute distress. Currently receiving hemodialysis with another 2 L planned to be removed. He is continued on norepinephrine down to 17 mcg/min. He had been initiated on Synthroid and Solu- Cortef with improvement in his blood pressure. White count 7.3. Hemoglobin 10.8. Platelets 151. Sodium 133. Potassium 4.2. Bicarb 27. BUN 66. Creatinine 3.31. Glucose 130. He remains on IV diuretics. Anticoagulated with Eliquis. Currently in a -3.7 L balance. The patient is seen today July 13, 2024 in follow-up in the intensive care unit. He is resting comfortably in bed. Awake and alert in no acute distress. Maintaining O2 saturations in the 90s on 2 L/min per nasal cannula. He has normal saline at 10 mL/h. He is still requiring norepinephrine at 14 mcg/min. He is continued on Synthroid and Solu-Cortef. White count 12.4. Hemoglobin 11.5. Platelets 236. Sodium 132. Potassium 4.0. Bicarb 28. BUN 65. Creatinine 2.97. Glucose 116. He remains on Lasix 60 mg IV every 12 hours. Currently in a positive balance. Plan is for hemodialysis again tomorrow. The patient is seen today July 14, 2024 in follow-up in the intensive care unit. He is currently awake and alert in no acute distress resting comfortably in bed. Maintaining good O2 saturations in the 90s on room air. He is currently receiving hemodialysis with a goal of 2 L to be removed today. He is still requiring norepinephrine at 7 mcg/min. He is continued on Lasix 60 mg every 12 hours. He remains on Synthroid and Solu-Cortef. Also continued on midodrine. Urine culture was positive for Enterococcus faecalis. Blood cultures revealed no growth. White count 10.2. Hemoglobin 10.6. Platelets 182. Sodium 132. Potassium 4.2. Bicarb 26. BUN 79. Creatinine 3.85. Glu cose 109. Objective - Vital Signs Vital signs: Vital Signs Temp 97.6 F 07/14/24 08:00 Pulse 98 07/14/24 10:00 Resp 20 07/14/24 10:00 BP 82/54 07/13/24 09:45 Pulse Ox 96 07/14/24 10:00 FiO2 21 07/14/24 08:21 Intake & Output 07/13/24 07/14/24 07/14/24 18:59 06:59 18:59 Intake Total 234.323 198.792 100.969 Output Total 135 120 105 Balance 99.323 78.792 -4.031 Weight 174.7 kg Intake: IV 192 176 64 KVO 0.9 NS 120 110 40 pressure bag 72 66 24 Intake, IV Titration 42.323 22.792 36.969 Amount Norepinephrine 32 mg In 42.323 22.792 36.969 Sodium Chloride 0.9% 218 ml @ 0.03 MCG/KG/MIN 2.63 mls/hr IV .Q24H [facility] Rx#: [id number] Output: Urine 135 120 105 Other: Voiding Method Indwelling Catheter Indwelling Catheter Indwelling Catheter ABP, PAP, CO, CI - Last Documented Arterial Blood Pressure 119/52 - Exam GENERAL EXAM: Alert, pleasant 78-year-old male, resting in bed, on room air. EYES: Normal reaction of pupils, equal size. NOSE: Clear with pink turbinates. THROAT: No erythema or exudates. NECK: No masses, no JVD. CHEST: No chest wall deformity. LUNGS: Equal air entry with crackles in the right lung base. CVS: S1 and S2 normal with no audible murmur, regular rhythm. ABDOMEN: No hepatosplenomegaly, normal bowel sounds, no guarding or rigidity. SPINE: No scoliosis or deformity SKIN: No rashes CENTRAL NERVOUS SYSTEM: No focal deficits, tone is normal in all 4 extremities. EXTREMITIES: Hemodialysis catheter in place. There is no peripheral edema. No clubbing, no cyanosis. Peripheral pulses are intact. - Labs CBC & Chem 7: 07/14/24 05:00 07/14/24 05:00 Labs: Abnormal Lab Results - Last 24 Hours (Table) 07/14/24 07/14/24 Range/Units 05:00 05:00 RBC 3.00 L (4.30-5.90) m/uL Hgb 10.6 L (13.0-17.5) gm/dL Hct 31.7 L (39.0-53.0) % MCV 105.6 H (80.0-100.0) fL MCH 35.2 H (25.0-35.0) pg RDW 18.1 H (11.5-15.5) % Macrocytosis Marked A Sodium 132 L (137-145) mmol/L BUN 79 H (9-20) mg/dL Creatinine 3.85 H (0.66-1.25) mg/dL Glucose 109 H (74-99) mg/dL Total Bilirubin 2.7 H (0.2-1.3) mg/dL Alkaline Phosphatase 196 H (38-126) U/L Total Protein 5.9 L (6.3-8.2) g/dL Albumin 2.7 L (3.5-5.0) g/dL Assessment and Plan Assessment: Acute on chronic diastolic congestive heart failure with hypotension, requiring pressors remains on norepinephrine at 7 mcg/min Acute on chronic stage IIIb kidney disease with massive volume overload and initiated on hemodialysis Hyperlipidemia Chronic atrial fibrillation, maintained on anticoagulation with Eliquis Enterococcus urinary tract infection currently on IV Unasyn. Severe pulmonary hypertension Morbid obesity Gout History of obstructive sleep apnea, not tolerant to CPAP therapy Previous history of WPW and SVT Osteoarthritis Previous history of DVT of lower extremities Glaucoma Plan: The patient was seen and evaluated Currently stable and on room air Labs and medications reviewed Remains on IV diuretics Hemodialysis today Titrate down the norepinephrine as tolerated Continue Solu-Cortef, Synthroid Continue midodrine Will continue to follow I have personally seen and examined the patient, performed the documentation and the assessment and plan as written. Number of minutes spent on the visit: 10.
--- NOTE | 2024-07-14 12:52 | P.PN ---
Subjective Principal diagnosis: Debility with hypotension. The patient is a 78-year-old white male transferred to the ICU related to hypotension. Now on dialysis. Still on vasopressors at minimal dosing. The patient is resting comfortably. No headache no shortness of breath he is well aware of his overall debility. He and his have been coping staying independent. Still watching for BP. Hypotension. Objective - Vital Signs Vital signs: Vital Signs Temp 97.6 F 07/14/24 12:00 Pulse 84 07/14/24 12:00 Resp 14 07/14/24 12:00 BP 82/54 07/13/24 09:45 Pulse Ox 96 07/14/24 12:00 FiO2 21 07/14/24 08:21 Intake & Output 07/13/24 07/14/24 07/14/24 18:59 06:59 18:59 Intake Total 234.323 198.792 132.969 Output Total 135 120 150 Balance 99.323 78.792 -17.031 Weight 174.7 kg Intake: IV 192 176 96 KVO 0.9 NS 120 110 60 pressure bag 72 66 36 Intake, IV Titration 42.323 22.792 36.969 Amount Norepinephrine 32 mg In 42.323 22.792 36.969 Sodium Chloride 0.9% 218 ml @ 0.03 MCG/KG/MIN 2.63 mls/hr IV .Q24H [facility] Rx#: [id number] Output: Urine 135 120 150 Other: Voiding Method Indwelling Catheter Indwelling Catheter Indwelling Catheter ABP, PAP, CO, CI - Last Documented Arterial Blood Pressure 113/51 - Constitutional General appearance: Present: obese - EENT Eyes: Present: abnormal pupil ENT: Absent: hard of hearing - Respiratory Respiratory: bilateral: diminished - Cardiovascular Rhythm: regular Abnormal Heart Sounds: Absent: S3 Gallop - Gastrointestinal General gastrointestinal: Present: soft. Absent: tenderness - Integumentary Integumentary Comment(s): 2+ edema - Labs CBC & Chem 7: 07/14/24 05:00 07/14/24 05:00 Labs: Abnormal Lab Results - Last 24 Hours (Table) 07/14/24 07/14/24 Range/Units 05:00 05:00 RBC 3.00 L (4.30-5.90) m/uL Hgb 10.6 L (13.0-17.5) gm/dL Hct 31.7 L (39.0-53.0) % MCV 105.6 H (80.0-100.0) fL MCH 35.2 H (25.0-35.0) pg RDW 18.1 H (11.5-15.5) % Macrocytosis Marked A Sodium 132 L (137-145) mmol/L BUN 79 H (9-20) mg/dL Creatinine 3.85 H (0.66-1.25) mg/dL Glucose 109 H (74-99) mg/dL Total Bilirubin 2.7 H (0.2-1.3) mg/dL Alkaline Phosphatase 196 H (38-126) U/L Total Protein 5.9 L (6.3-8.2) g/dL Albumin 2.7 L (3.5-5.0) g/dL Assessment and Plan (1) Hypotension Current Visit: Yes Status: Acute Code(s): I95.9 - HYPOTENSION, UNSPECIFIED SNOMED Code(s): 05123475 (2) Left leg cellulitis Current Visit: Yes Status: Acute Code(s): L03.116 - CELLULITIS OF LEFT LOWER LIMB SNOMED Code(s): 56517577993807334 (3) Weakness Current Visit: Yes Status: Acute Code(s): R53.1 - WEAKNESS SNOMED Code(s): 02911703 Plan: Acute on chronic renal failure. Hypotension. Check CBC and CMP in the a.m. Prognosis guarded secondary to his multiple comorbidities. We will continue follow up with multiple specialists.
[2024-07-14] MEDS: IV FLUID CONTINUATION 1,000 ML IV ONE (13:00)
[2024-07-14] MEDS: LIDOCAINE 1% INJ 10MG/ML (20 ML MDV) SQ ONE ×2 (13:05)
[2024-07-14] MEDS: MIDAZOLAM 2 MG/2 ML VIAL IVP ONE (13:07)
--- NOTE | 2024-07-14 14:43 | CDI ---
Documentation Clarification Form Date: 07/14/2024 12:25:24 PM From: Shanna Bill RN CCDS Phone: [phone] Admit Date: 06/26/2024 05:50:00 PM Patient Name: Redd Dave Visit Number: [id number] Discharge Date: ATTENTION: The Clinical Documentation Specialists (CDI) and [facility] Coding Staff appreciate your assistance in clarifying documentation. Please respond to the clarification below the line at the bottom and electronically sign. The CDI & [facility] Coding staff will review the response and follow-up if needed. Please note: Queries are made part of the Legal Health Record. If you have any questions, please contact the author of this message via ITS. Doctor: Luis Fernando Mendes Your patient is receiving the following: Oxygen via 2L nc and CPAP. Please clarify what condition/diagnosis is being treated. History/Risk Factors: 78 year old male presents to the ED for worsening weakness and a fall. The patient states his lower leg was getting red and more painful. Medical History: Atrial fibrillation, DVT, OA, Sleep Apnea / CPAP/BIPAP, SVT and Lower extremity swelling. 06/27, HP. Clinical indicators: 06/26, HP: Respiration: Breath sounds diminished at he bases. Few scattered rhonchi and crackles. 07/02, Pulmonary consult: Respiratory reports as HPI, Reports dyspnea, reports home oxygen, Reports sleep apnea, reports snoring . Plan: Titrate oxygen flow to maintain saturation above 90%, currently on 2L nasal cannula. 06/29 11:11 RR 17; SpO2 95% CPAP FiO2 21 THRU TO 07/02 07:54 RR 20 SpO2 93% 2Lnc THRU TO - 07/02 23:45 97% 2L nc THEN 07/03 00:00 97% CPAP FiO2 21 thru to 07/03 08:00 SpO2 99% 2L nc MEDICINE NOTE 07/06: Obstructive sleep apnea not tolerating CPAP Treatment: Oxygen via 2L nasal cannula and CPAP What diagnosis are you treating with Oxygen? [ ] Acute on Chronic Respiratory Failure [ ] Chronic Respiratory Failure [ x ] Other, please specify acute respiratory failure____ [ ] Unable to determine (Template Last Reviewed: November 2020) SELVIN
--- NOTE | 2024-07-14 15:13 | CDI ---
Documentation Clarification Form Date: 07/14/2024 02:17:16 PM From: Shanna Bill RN CCDS Phone: [phone] Admit Date: 06/26/2024 05:50:00 PM Patient Name: Redd Dave Visit Number: [id number] Discharge Date: ATTENTION: The Clinical Documentation Specialists (CDI) and [facility] Coding Staff appreciate your assistance in clarifying documentation. Please respond to the clarification below the line at the bottom and electronically sign. The CDI & [facility] Coding staff will review the response and follow-up if needed. Please note: Queries are made part of the Legal Health Record. If you have any questions, please contact the author of this message via ITS. Doctor: Redd Brandon Your patient is receiving the following: Norepinephrine. Please clarify what condition/diagnosis is being treated. History/Risk Factors: 78 year old male presents to the ED for worsening weakness and a fall. The patient states his lower leg was getting red and more painful. Medical History: Atrial fibrillation, DVT, OA, Sleep Apnea / CPAP/BIPAP, SVT and Lower extremity swelling. 06/27, HP. Clinical indicators: 07/01 VSS: 08:56 B/P 104/64 HR 83 RR 16 SpO2 98% ra 07/01 VSS: 11:50 B/P 74/50 HR 84 RR 16 SpO2 98% ra 07/02 VSS 07:54 B/P 85/47 HR 97 RR 20 SpO2 93% nc 2L 07/02, Critical Care Consult: .The patient presented to us with volume overload, acute on top of chronic diastolic heart failure with moderate mitral regurgitation. Attempts to diurese this patient with Lasix have failed due to ongoing hypotension. I was asked to transfer this patient to the ICU for hemodynamic support and pressor use as the patient was going to be started on Lasix 5 mg infusion in combination with Zaroxolyn 5 mg p.o. daily. Based on that, the patient was transferred to the ICU.Lasix s drip was started and the patient will be started also on norepinephrine for blood pressure support. 06/26, CXR: Small right pleural effuison. 07/02, Labs: NA 134, Chl 97, BUN 83, Cr 3.54 07/04, Labs: NA 133, BUN 95, Cr 3.77, Alk phos 174, Total Protein 6.2, Albumin 3.0 07/04 Critical Care note: Continue diuretics including Lasix drip 10mg/h and Zaroxolyn. Continue hemodynamic support, patient is requiring 0.07mcg/kg/min of norepinephrine. Treatment: 07/02 - 07/05 Norepinephrine Bitartrate 254mls @ 17.488 mls/hr IV ; 07/05 - Current 250mls @ 2.63mls/hr IV; ICU admission, What diagnosis are you treating with Norepinephrine? [ ] Cardiogenic Shock [ ] Hypovolemic Shock [ x ] Other, please specify Adrenal insuff and hypothyroidism [ ] Unable to determine (Template Last Reviewed: November 2020) SELVIN
--- NOTE | 2024-07-14 17:03 | XR ---
EXAMINATION TYPE: XR chest 1V confirm line [facility] DATE OF EXAM: 07/14/2024 HISTORY: Shortness of breath. COMPARISON: 07/09/2024 TECHNIQUE: Single view of the chest is submitted. FINDINGS: Demonstrated are scattered senescent parenchymal change. Large bore central venous line right internal grinder tender al jugular approach with distal tip overlying the SVC. No evidence of pneumothorax. Left-sided PICC l ine. There is no evidence for focal infiltrate. The heart is stable. Small right-sided effusion. Hilar and mediastinal structures are within normal limits. Degenerative changes are seen of the dorsal spine. IMPRESSION: 1. Chronic changes without evidence for acute pulmonary disease. [facility], , 07/14/2024 5:01 PM
[2024-07-14] MEDS: APIXABAN 2.5 MG TABLET PO SCH (20:05)
--- NOTE | 2024-07-14 20:32 | OP ---
OPERATIVE REPORT DATE OF SERVICE : PREOPERATIVE DIAGNOSIS: Acute chronic renal failure. POSTOPERATIVE DIAGNOSIS: Acute chronic renal failure. PROCEDURES PERFORMED: 1. Ultrasound-guided 28 cm dialysis catheter, right jugular approach. 2. Removal of the temporary femoral dialysis catheter. DESCRIPTION OF PROCEDURE: The patient was brought to the geophysical laboratory supervisor. Right side of the neck and chest was prepped and draped in the usual sterile manner. 1% lidocaine with IV sedation. Ultrasound- guided micropuncture reduced. Right jugular vein micropuncture guidewire was passed and a 4-Sammarinese dilator advanced on top of the guidewire. Then, we created a tunnel. Through the tunnel, we brought 28 cm dialysis catheter. Then, we passed a regular guidewire which was parked at the inferior vena cava. After that, we passed the dilator and fluoroscopy control and sheath was placed on the top of the guidewire. Through the sheath, we introduced the dialysis catheter. Tip of the catheter in superior vena cava. After injection, flushed with heparin saline and hep-locked, secured with 3-0 nylon. Then, the groin was prepped and temporary dialysis catheter was removed. Pressure held. Patient tolerated the procedure well. Plan is x-ray of the chest. MMODL / IJN: [id number] /
[2024-07-15 04:10] LABS: Anisocytosis Slight; HGB 10.5 gm/dL (13.0-17.5); MCH 35.3 pg (25.0-35.0); MCHC 32.9 g/dL (31.0-37.0); Macrocytosis Marked; Platelet Count 185 k/uL (150-450); RBC 2.99 m/uL (4.30-5.90); RDW 17.4 % (11.5-15.5)
[2024-07-15 04:12] LABS: MCV 107.2 fL (80.0-100.0)
[2024-07-15 05:09] LABS: ALT 10 U/L (4-49); AST 32 U/L (17-59); African American GFR (CKD) 19 (>60 ml/min/1.73 sqM); Albumin 2.7 g/dL (3.5-5.0); Alkaline Phosphatase 171 U/L (38-126); Anion Gap 7 mmol/L; Blood Urea Nitrogen 67 mg/dL (9-20); Calcium 8.7 mg/dL (8.4-10.2); Carbon Dioxide 26 mmol/L (22-30); Chloride 99 mmol/L (98-107); Glucose 113 mg/dL (74-99); Non-African American GFR(CKD) 16 (>60 ml/min/1.73 sqM); Potassium 4.2 mmol/L (3.5-5.1); Sodium 132 mmol/L (137-145); Total Bilirubin 2.5 mg/dL (0.2-1.3); Total Protein 5.8 g/dL (6.3-8.2)
--- NOTE | 2024-07-15 07:09 | P.PN ---
Subjective History of present illness; patient 78-year-old gentleman with past medical history significant for A-fib, DVT, hypertension, hyperlipidemia presented the ER because of worsening weakness and fall. Patient states that for the last few days he has been noticing that his left lower leg was getting red and more painful. Patient has history of lower extremity swelling and normally wraps them to help with swelling. There was no complaint of fever or chills. Patient has been complaining of increasing weakness. Patient had a fall yesterday. Th ere was no complaint of any trauma to the head. There was no loss of consciousness. Denied any chest pain or shortness of breath. Because of the symptoms, patient brought to the ER Initial lab work done in the ER showed showed WBC 1.7, hemoglobin 12.6, platelet count 169, INR 10, sodium 136, potassium 3.5, BUN 52, creatinine 2.19, glucose 117, bilirubin 5 AST 167, ALT 48 troponin 0.012, albumin 3.2 UA positive for leukocyte esterase, urine WBC 14 Influenza A not detected Influenza B not detected RSV not detected COVID-19 not detected X-ray of pelvis done, no evidence of any fractures EKG done in the ER showed heart rate of 94, no ST segment elevation or depression seen, no T-wave inversions seen. Chest x-ray done in the ER showed small right pleural effusion CT head done showed no acute intracranial process CT cervical spine done showed no fractures. Duplex ultrasound of lower extremities done showed no DVT Patient admitted to internal medicine service 06/28 Patient is lying in bed does not look in distress He still complaining from some pain in his left leg about 3/10, his left leg swollen pink warm and tender He has been treated for CHF, he has bilateral leg swelling, it is hard to hear basal crepitation as he is obese He still feels generally weak No other new complaint He is currently treated with cefazolin but urine culture is growing Enterococcus. Patient denies overt UTI signs symptoms currently Also is on IV Lasix 40 mg 3 times a day He was given warfarin 5 mg after INR came down to 3.0 down to 2.1 today [place]calcitonin [place] [address] Creatinine 2.2 today, was 2.1 last 2 days, baseline 1.4-1.7 Blood pressure is borderline 06/29 his left leg cellulitis is improving, still has swollen of the legs. No chest pain or dyspnea or other new complaint He is using CPAP machine at night Vitals are stable Labs from today are still pending. Yesterday his INR was therapeutic at 2.1. Urine culture is growing Enterococcus which is sensitive Continue with Coumadin. He denies any urinary tract symptoms he has external urinary catheter. Keep monitoring creatinine 06/30 Patient awake alert, using CPAP machine overnight. Denies chest pain or dyspnea He still complains from right shoulder pain from falling prior to coming to the hospital. He cannot raise his arm above his head with some limitation. We are going to order x-ray of the right shoulder. He still have generalized weakness He still have significant 3+ bilateral leg swelling, he is on IV Lasix 40 mg twice daily. However his INR has been trending up. Creatinine was 2.5 yes terday. From today still pending. Patient feels dry. His left leg cellulitis improving on IV cefazolin He continued on warfarin for his history of DVT and A-fib, INR is therapeutic. 07/01 Patient awake alert. He still complaining from some pain in his lower back improved with [place], right shoulder pain and x-ray showing no fracture but mild AC joint and glenoid joint arthropathy. Also patient followed by nephrology for acute kidney injury, creatinine slightly up from 2.89 up to 2.9. Currently he is placed on IV Lasix 40 mg daily, then switch to Lasix drip 10 mg/h and then later on lowered to 5 mg/h Flomax added as well as midodrine and Zaroxolyn. Blood pressure still borderline with systolic 88-111 Patient also on Augmentin for UTI with organism Enterococcus 07/02 Patient awake alert with no dizziness or generalized weakness although his blood pressure is on the low side. This morning was 92/58 He is currently being treated for left leg cellulitis and Enterococcus UTI and patient is on Unasyn Also he is on Lasix drip for his acute CHF and acute on chronic kidney disease, creatinine was 2.9, went up to 3.5 today He has been followed closely by nephrology and urology service, s/p Monzon catheter placement Also he is on Zaroxolyn, midodrine and furosemide. Continue with Eliquis while warfarin discontinued Patient on 07/15/2024 Patient remains in the ICU. He is in room 266. He is fully awake and oriented time place and person. He is breathing quiet and he looks relaxed not anxious. He is generally weak but with no other specific complaints His back pain about 3/10 He still has 2+ bilateral pitting leg edema Monzon catheter in place He is currently on Eliquis 2.5, IV Lasix 60 mg twice daily, IV Solu-Cortef at 50 mg as well as Levophed and metoprolol 100 mg. He is also on midodrine 10 mg He got hemodialysis yesterday with 2 L of fluid removed Objective - Vital Signs Vital signs: Vital Signs Temp 97.9 F 07/15/24 04:00 Pulse 86 07/15/24 07:00 Resp 16 07/15/24 07:00 BP 127/58 07/14/24 12:10 Pulse Ox 99 07/15/24 07:00 FiO2 21 07/14/24 08:21 Intake & Output 07/14/24 07/15/24 07/15/24 18:59 06:59 18:59 Intake Total 734.668 419.257 16 Output Total 4815 135 5 Balance -4080.332 284.257 11 Weight 174.8 kg Intake: IV 176 168 16 KVO 0.9 NS 110 120 10 pressure bag 66 48 6 Intake, IV Titration 58.668 1.257 Amount Norepinephrine 32 mg In 58.668 1.257 Sodium Chloride 0.9% 218 ml @ 0.03 MCG/KG/MIN 2.63 mls/hr IV .Q24H [facility] Rx#: [id number] Oral 250 Hemodialysis 500 Output: Urine 315 135 5 Hemodialysis 2500 Hemodialysis Net Amount 2000 Other: Voiding Method Indwelling Catheter Indwelling Catheter ABP, PAP, CO, CI - Last Documented Arterial Blood Pressure 115/61 - Exam -GENERAL: The patient is alert and oriented x3, not in any acute distress. Well developed, well nourished. Obese HEENT: Pupils are round and equally reacting to light. EOMI. No scleral icterus. No conjunctival pallor. Normocephalic, atraumatic. No pharyngeal erythema. No thyromegaly. CARDIOVASCULAR: S1 and S2 present. No murmurs, rubs, or gallops. PULMONARY: Chest is clear to auscultation, no wheezing , no crackles. ABDOMEN: Soft, nontender, nondistended, normoactive bowel sounds. No palpable organomegaly. MUSCULOSKELETAL: No joint swelling or deformity. -EXTREMITIES: No cyanosis, clubbing, , 3+ bilateral pitting leg edema. Left leg is swollen, pink, warm and slightly tender. Bilateral pitting leg edema 1+, more on the left side NEUROLOGICAL: Gross neurological examination did not reveal any focal deficits. SKIN: No rashes. no petechiae. - Labs CBC & Chem 7: 07/15/24 03:58 07/15/24 03:58 Labs: Abnormal Lab Results - Last 24 Hours (Table) 07/15/24 07/15/24 Range/Units 03:58 03:58 RBC 2.99 L (4.30-5.90) m/uL Hgb 10.5 L (13.0-17.5) gm/dL Hct 32.0 L (39.0-53.0) % MCV 107.2 H (80.0-100.0) fL MCH 35.3 H (25.0-35.0) pg RDW 17.4 H (11.5-15.5) % Macrocytosis Marked A Sodium 132 L (137-145) mmol/L BUN 67 H (9-20) mg/dL Creatinine 3.46 H (0.66-1.25) mg/dL Glucose 113 H (74-99) mg/dL Total Bilirubin 2.5 H (0.2-1.3) mg/dL Alkaline Phosphatase 171 H (38-126) U/L Total Protein 5.8 L (6.3-8.2) g/dL Albumin 2.7 L (3.5-5.0) g/dL Assessment and Plan Assessment: Acute kidney injury on chronic kidney disease stage III Acute diastolic CHF with preserved ejection fraction Hypotension secondary to above requiring pressor support Acute left leg cellulitis, resolved Fall at home Acute urinary tract infection secondary to Enterococcus group D, resolved Hepatosplenomegaly, patient has been told by Dr. Hansen he has nonalcoholic liver cirrhosis Chronic atrial fibrillations on Coumadin with high INR on admission, currently improved. Currently switched to Eliquis Obesity with BMI of 39.6 History of DVT Plan: Continue with antibiotic as per ID team. Currently patient is off antibiotic with close monitoring Continue with Lasix intravenous, Zaroxolyn was discontinued. As per nephrology team recommendation. Also patient getting hemodialysis as per nephrology team.Monitor creatinine Pulmonary team consult Cardiology team consult Continue with Monzon catheter, Flomax and urology consult Continue with Eliquis Continue with IV Solu-Cortef Labs and medication were reviewed.. Continue same treatment. Continue with symptomatic treatment. Resume home medication. Monitor labs and vitals. DVT and GI prophylaxis. Further recommendations as per clinical course of the mina harden DVT prophylaxis: Eliquis GI Prophylaxis: Pepcid PT/OT: Pending Prognosis is guarded
--- NOTE | 2024-07-15 10:29 | P.PN ---
Subjective Progress Note Date: 07/15/24 This is a 78-year-old male patient with massive fluid overload, ongoing difficulty with chronic kidney failure as the patient has developed an acute on top of chronic renal disease with extensive third spacing and anasarca and possibly a component of cardiorenal syndrome. 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 Baseline creatinine is around 1.5 back in March 2024. The patient presented to us with volume overload, acute on top of chronic diastolic heart failure with moderate mitral regurgitation. Patient also was diagnosed having an Enterococcus urinary tract infection currently on IV Unasyn. Initial rate, attempts to diurese this patient with Lasix have failed due to ongoing hypotension. The patient was started on midodrine 10 mg p.o. 4 times daily. Subsequently, I was asked to transfer this patient to the ICU for hemodynamic support and pressor use as the patient was going to be started on Lasix 5 mg infusion in combination with Mala oxolyn 5 mg p.o. daily. Based on that, the patient was transferred to the ICU. Lasix s drip was started and the patient will be started also on norepinephrine for blood pressure support. He is currently awake and alert. Following commands. He is on oxygen at 2 L/min nasal cannula. His chest x-ray showing small bilateral pleural effusion and this is less x-ray that was done on 06/26/2024. Patient was evaluated today on 07/03/24, remains in the ICU, he was seen by Dr. Jp nance on consultation yesterday, he was placed on Lasix drip at 5 mg/h, making about 50 to 75 cc of urine per hour. Blood pressure is marginal he is requiring norepinephrine at 0.06 mcg/kg/min. Patient is not complaining of shortness of breath, he is on 2 L nasal cannula, he seems to be extremely swollen edematous and has anasarca. Nonetheless the patient is feeling better compared to yesterday. And seemsto be responding to the Lasix drip. WBC count is 8.4 hemoglobin 12.2 electrolytes are normal BUN is 92 creatinine 3.53., Relatively unchanged compared to yesterday.Patient's baseline creatinine on 06/26 was 2.19. Patient is receiving Unasyn for what seems to be acute urinary tract infection secondary to Enterococcus. Faecalis. Patient was evaluated today on 07/04/2024, remains in the ICU remains on Lasix drip and dose has been increased to 10 mg/h. Patient is requiring norepinephrine at 0.07 mcg/kg/min he is also on IV fluid at KVO. Antibiotics cooley he is on Unasyn for his UTI, and is also on Eliquis. Patient tells me that he is feeling better, breathing easier, and he continues to respond to Lasix but urine output did not improve much by increasing the dose of Lasix., WBC is 8.4 hemoglobin 11.9 basic metabolic profile is normal bicarb is 27 BUN is 95 creatinine 3.77 Gradually rising. His renal status is being addressed and followed by nephrology chest x-ray showed evidence of cardiomegaly and pulmonary vascular congestion. Patient remains on 2 L nasal cannula, and he is O2 saturat ion is 97%. Blood pressure is marginal, his mean arterial pressure is 68, patient is requiring norepinephrine Patient today on 07/05/2024, patient is not doing too great today. Patient is getting worse, he is developing worsening hypotension and requiring now higher doses of norepinephrine and higher doses of vasopressin. Patient required lines including central line and arterial line, and these were done today. Urine output remains about 35 to 40 cc/h, in spite of Lasix at 10 mg/h. His renal functioning is getting worse creatinine is up to 3.9 today. Again the patient is requiring norepinephrine and we have added vasopressin, patient seems to be developing acute kidney injury with ATN and hypotension as well as cardiorenal syndrome. Nephrology is considering to proceed with renal replacement therapy since the patient continues to remain volume overloaded. And urine output is not that great. His creatinine baseline in March was 1.5. Looking at his echocardiogram, patient has chronic diastolic congestive heart failure with moderate mitral regurgitation, and severe pulmonary hypertension. Patient is also receiving antibiotics for his right lower extremity cellulitis, in addition he has Enterococcus urinary tract infection addressed by infectious disease on the case.WBC count is 7.1 hemoglobin is 11.1 basic metabolic profile is normal bicarb is 23 BUN is 101 creatinine 3.94. Chest x-ray is showing worsening pleural effusion and pulmonary edema Reevaluate today on 07/06/2024, patient remains in the ICU, still on pressors requiring norepinephrine at 0.24 mcg/kg/min, patient did not require vasopressin yesterday. Still on midodrine. A right femoral dialysis catheter was placed yesterday by vascular surgery. Patient is supposed to be started on hemodialysis today. Clinically today, he seems to be feeling better compared to yesterday.Denies any cough wheezing or shortness of breath, patient feels generally weak. WBC count is 7.9 hemoglobin 11.8 electrolytes are normal BUN is 102 creatinine 4.31 patient remains on Lasix drip at 10 mg/h, and the plan is to hemodialyze today Patient was evaluated today on 07/07/2024, patient remains in the ICU on 2 L nasal cannula patient underwent hemodialysis yesterday and 2 L were removed. His BUN is 90 creatinine 4.13. Remains on Lasix drip at 10 mg/h he is still requiring norepinephrine at 0.21 mcg/kg/min, blood pressure remains marginal at best. Patient is still covered with Unasyn still on Eliquis, patient was placed on Lopressor at 100 mg p.o. or twice daily by cardiology his echocardiogram showed significant valvular heart disease, pulmonary hypertension, ejection fraction is 50 to 55%. Patient is complaining today of some bloating and abdominal discomfort, but no nausea no vomiting. No significant pain. WBC count today is 8.2 hemoglobin 11.3 electrolytes are normal BUN is 90 creatinine 4.13, chest x-ray showed mild pulmonary vascular congestion Patient was evaluated today on 07/08/2024, patient remains in the ICU still requiring pressors, he is on norepinephrine at 0.22 mcg/kg/min blood pressure remains marginal, patient is intermittently getting hemodialysis, remains on multiple cardiac meds but he is off Lasix drip at this point. Pulmonary cooley he is on 2 L nasal cannula, does not seem to be in distress. Chest x-ray today showed minimal right basilar atelectasis, no evidence of pulmonary edema. Apparently the patient did not tolerate hemodialysis treatment yesterday well, because of low blood pressure. WBC count is 9.3 hemoglobin 11.4 basic metabolic profile is normal BUN is 82 creatinine 3.49 Patient was seen today on 07/09/2024, patient remains in the ICU, remains on nor epinephrine and he is intermittently on hemodialysis. Off Lasix drip. On 3 L nasal cannula, on norepinephrine 0.13 mcg/kg/min on midodrine on IV fluid at KVO. Patient is also on Eliquis. Urine output is about 25 to 40 cc/h. His CVP is 15 patient had 2 L removed by hemodialysis on 07/08 and his CVP today is ranging between 12-15. Pulmonary cooley is not in distress, however his blood pressure remains extremely low requiring pressors hence I cannot move the patient out of the ICU as long as he is on pressors The patient is seen today July 10, 2024 in follow-up in the intensive care unit. Awake and alert in no acute distress. Currently resting fairly comfortably in bed. He is maintaining good O2 saturations in the 90s on 2 L/min per nasal cannula. He is still requiring norepinephrine at 20 mcg/min. Normal saline at KVO. Urine culture was positive for Enterococcus faecalis. Blood cultures revealed no growth. White count 10.1. Hemoglobin 11.4. Sodium 133. Potassium 4.3. Bicarb 26. BUN 83. Creatinine 3.79. Glucose 104. He is continued on Lasix 60 mg every 12 hours. Anticoagulated with Eliquis. Remains on midodrine 10 mg 4 times daily. The patient is seen today July 11, 2024 in follow-up in the intensive care unit. He is currently resting in bed. Awake and alert in no acute distress. Currently undergoing hemodialysis. He is still requiring norepinephrine at 0.17 mcg/kg/min. He has normal saline at KVO. He is maintaining O2 saturation in the 90s on 2 L/min per nasal cannula. His TSH did come back abnormal at 6.87, cortisol level was 8.8. He will be initiated on Synthroid 75 mcg IV daily and Solu-Cortef 50 mg IV every 6 hours. Continued on midodrine. He remains on Lasix 60 mg IV every 12 hours. Anticoagulated with Eliquis. White count 8.4. Hemoglobin 11.1. Platelets 169. Sodium 133. Potassium 4.2. Bicarb 27. BUN 67. Creatinine 3.30. Glucose 102. The patient is seen today July 12, 2024 in follow-up in the intensive care unit. He is awake and alert in no acute distress. Currently receiving hemodialysis with another 2 L planned to be removed. He is continued on norepinephrine down to 17 mcg/min. He had been initiated on Synthroid and Solu- Cortef with improvement in his blood pressure. White count 7.3. Hemoglobin 10.8. Platelets 151. Sodium 133. Potassium 4.2. Bicarb 27. BUN 66. Creatinine 3.31. Glucose 130. He remains on IV diuretics. Anticoagulated with Eliquis. Currently in a -3.7 L balance. The patient is seen today July 13, 2024 in follow-up in the intensive care unit. He is resting comfortably in bed. Awake and alert in no acute distress. Maintaining O2 saturations in the 90s on 2 L/min per nasal cannula. He has normal saline at 10 mL/h. He is still requiring norepinephrine at 14 mcg/min. He is continued on Synthroid and Solu-Cortef. White count 12.4. Hemoglobin 11.5. Platelets 236. Sodium 132. Potassium 4.0. Bicarb 28. BUN 65. Creatinine 2.97. Glucose 116. He remains on Lasix 60 mg IV every 12 hours. Currently in a positive balance. Plan is for hemodialysis again tomorrow. The patient is seen today July 14, 2024 in follow-up in the intensive care unit. He is currently awake and alert in no acute distress resting comfortably in bed. Maintaining good O2 saturations in the 90s on room air. He is currently receiving hemodialysis with a goal of 2 L to be removed today. He is still requiring norepinephrine at 7 mcg/min. He is continued on Lasix 60 mg every 12 hours. He remains on Synthroid and Solu-Cortef. Also continued on midodrine. Urine culture was positive for Enterococcus faecalis. Blood cultures revealed no growth. White count 10.2. Hemoglobin 10.6. Platelets 182. Sodium 132. Potassium 4.2. Bicarb 26. BUN 79. Creatinine 3.85. Glu cose 109. The patient is seen today July 15, 2024 in follow-up in the intensive care unit. He is resting comfortably in bed. Awake and alert in no acute distress. Maintaining good O2 saturations in the 90s on room air. He is still requiring norepinephrine currently at 12 mcg/min. He is continued on Solu-Cortef, Synthroid, midodrine. He remains on IV diuretics per nephrology. He received hemodialysis yesterday with 2 L removed. Chest x-ray revealed chronic changes without evidence of acute pulmonary process. He did have a right internal jugular hemodialysis catheter placed yesterday. Femoral catheter was removed. Urine culture was positive for Enterococcus faecalis. Blood cultures revealed no growth. White count 8.0. Hemoglobin 10.5. Platelets 185. Sodium 132. Potassium 4.2. Bicarb 26. BUN 67. Creatinine 3.46. Glucose 113. Objective - Vital Signs Vital signs: Vital Signs Temp 96.6 F L 07/15/24 08:00 Pulse 93 07/15/24 10:15 Resp 14 07/15/24 10:15 BP 127/58 07/14/24 12:10 Pulse Ox 94 L 07/15/24 10:15 FiO2 21 07/14/24 08:21 Intake & Output 07/14/24 07/15/24 07/15/24 18:59 06:59 18:59 Intake Total 734.668 419.257 66.291 Output Total 4815 135 15 Balance -4080.332 284.257 51.291 Weight 174.8 kg Intake: IV 176 168 48 KVO 0.9 NS 110 120 30 pressure bag 66 48 18 Intake, IV Titration 58.668 1.257 18.291 Amount Norepinephrine 32 mg In 58.668 1.257 18.291 Sodium Chloride 0.9% 218 ml @ 0.03 MCG/KG/MIN 2.63 mls/hr IV .Q24H [facility] Rx#: [id number] Oral 250 Hemodialysis 500 Output: Urine 315 135 15 Hemodialysis 2500 Hemodialysis Net Amount 2000 Other: Voiding Method Indwelling Catheter Indwelling Catheter Indwelling Catheter ABP, PAP, CO, CI - Last Documented Arterial Blood Pressure 106/53 - Exam GENERAL EXAM: Alert, 78-year-old male, resting in bed, on room air, in no acute distress. EYES: Normal reaction of pupils, equal size. NOSE: Clear with pink turbinates. THROAT: No erythema or exudates. NECK: No masses, no JVD. Right IJ hemodialysis catheter in place. CHEST: No chest wall deformity. LUNGS: Equal air entry with crackles in the right lung base. CVS: S1 and S2 normal with no audible murmur, regular rhythm. ABDOMEN: No hepatosplenomegaly, normal bowel sounds, no guarding or rigidity. SPINE: No scoliosis or deformity SKIN: No rashes CENTRAL NERVOUS SYSTEM: No focal deficits, tone is normal in all 4 extremities. EXTREMITIES: There is no peripheral edema. No clubbing, no cyanosis. Peripheral pulses are intact. - Labs CBC & Chem 7: 07/15/24 03:58 10/12/24 03:58 Labs: Abnormal Lab Results - Last 24 Hours (Table) 07/15/24 07/15/24 Range/Units 03:58 03:58 RBC 2.99 L (4.30-5.90) m/uL Hgb 10.5 L (13.0-17.5) gm/dL Hct 32.0 L (39.0-53.0) % MCV 107.2 H (80.0-100.0) fL MCH 35.3 H (25.0-35.0) pg RDW 17.4 H (11.5-15.5) % Macrocytosis Marked A Sodium 132 L (137-145) mmol/L BUN 67 H (9-20) mg/dL Creatinine 3.46 H (0.66-1.25) mg/dL Glucose 113 H (74-99) mg/dL Total Bilirubin 2.5 H (0.2-1.3) mg/dL Alkaline Phosphatase 171 H (38-126) U/L Total Protein 5.8 L (6.3-8.2) g/dL Albumin 2.7 L (3.5-5.0) g/dL Assessment and Plan Assessment: Acute on chronic diastolic congestive heart failure with hypotension, requiring pressors remains on norepinephrine at 12 mcg/min Acute on chronic stage IIIb kidney disease with massive volume overload and initiated on hemodialysis Hyperlipidemia Chronic atrial fibrillation, maintained on anticoagulation with Eliquis Enterococcus faecalis urinary tract infection complete Unasyn. Severe pulmonary hypertension Morbid obesity Gout History of obstructive sleep apnea, not tolerant to CPAP therapy Previous history of WPW and SVT Osteoarthritis Previous history of DVT of lower extremities Glaucoma Plan: The patient was seen and evaluated Currently stable and on room air Labs and medications reviewed Titrate down the norepinephrine as tolerated Continue Solu-Cortef, Synthroid, midodrine Discontinue Flomax IV diuretics/hemodialysis per nephrology Will continue to follow I have personally seen and examined the patient, performed the documentation and the assessment and plan as written. Number of minutes spent on the visit: 10.
--- NOTE | 2024-07-15 12:33 | P.PN ---
Subjective Progress Note Date: 07/15/24 Patient is seen in follow-up for acute kidney injury on chronic kidney disease. On IV Lasix. Urine output 10-20 cc an hour. Oral intake fair. Started on hemodialysis July 06, 2024. On Levophed. Tolerating dialysis well. Vital signs are stable. On Levophed. General: No acute distress. HEENT: Head exam is unremarkable. On room air. LUNGS: No audible rhonchi or wheezes. HEART: Rate and Rhythm are regular. ABDOMEN: Obese, nontender. EXTREMITITES: 1+ edema. Lower extremities wrapped. Objective - Vital Signs Vital signs: Vital Signs Temp 96.6 F L 07/15/24 08:00 Pulse 93 07/15/24 09:00 Resp 14 07/15/24 09:00 BP 127/58 07/14/24 12:10 Pulse Ox 93 L 07/15/24 09:00 FiO2 21 07/14/24 08:21 Intake & Output 07/14/24 07/15/24 07/15/24 18:59 06:59 18:59 Intake Total 734.668 419.257 45.031 Output Total 4815 135 10 Balance -4080.332 284.257 35.031 Weight 174.8 kg Intake: IV 176 168 32 KVO 0.9 NS 110 120 20 pressure bag 66 48 12 Intake, IV Titration 58.668 1.257 13.031 Amount Norepinephrine 32 mg In 58.668 1.257 13.031 Sodium Chloride 0.9% 218 ml @ 0.03 MCG/KG/MIN 2.63 mls/hr IV .Q24H [facility] Rx#: [id number] Oral 250 Hemodialysis 500 Output: Urine 315 135 10 Hemodialysis 2500 Hemodialysis Net Amount 1999 Other: Voiding Method Indwelling Catheter Indwelling Catheter Indwelling Catheter ABP, PAP, CO, CI - Last Documented Arterial Blood Pressure 95/45 - Labs CBC & Chem 7: 07/15/24 03:58 07/15/24 03:58 Labs: Abnormal Lab Results - Last 24 Hours (Table) 07/15/24 07/15/24 Range/Units 03:58 03:58 RBC 2.99 L (4.30-5.90) m/uL Hgb 10.5 L (13.0-17.5) gm/dL Hct 32.0 L (39.0-53.0) % MCV 107.2 H (80.0-100.0) fL MCH 35.3 H (25.0-35.0) pg RDW 17.4 H (11.5-15.5) % Macrocytosis Marked A Sodium 132 L (137-145) mmol/L BUN 67 H (9-20) mg/dL Creatinine 3.46 H (0.66-1.25) mg/dL Glucose 113 H (74-99) mg/dL Total Bilirubin 2.5 H (0.2-1.3) mg/dL Alkaline Phosphatase 171 H (38-126) U/L Total Protein 5.8 L (6.3-8.2) g/dL Albumin 2.7 L (3.5-5.0) g/dL Assessment and Plan Assessment: 1. Acute kidney injury secondary to ATN secondary to hypotension and cardiorenal syndrome. Creatinine up to 4.3 dated July 06, 2024. Started on hemodialysis July 06, 2024 via femoral dialysis catheter now with Permcath. No hydronephrosis noted on ultrasound. Trace protein on UA. 2. 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 Creatinine 1.5 in March 2024. 3. Acute on chronic diastolic CHF and moderate mitral consultation, severe tricuspid regurgitation and pulmonary hypertension. 4. Volume overload. Improved with diuresis and ultrafiltration. 5. Right lower extremity cellulitis and Enterococcus UTI s/p antibiotics. ID following. 6. Hypervolemic hyponatremia. Stable. 7. Hyperphosphatemia secondary to acute kidney injury. Phosphorus level 5.0 dated July 12, 2024. On Renvela. Plan: Continue HD MWF schedule D/C IV Lasix to see if allows to come off levophed Low-salt diet and 1500 cc fluid restriction. Maintain midodrine. Avoid nephrotoxins. Continue to monitor renal function and urine output.
[2024-07-16 04:26] LABS: Anisocytosis Slight; HCT 31.6 % (39.0-53.0); HGB 10.5 gm/dL (13.0-17.5); MCH 35.1 pg (25.0-35.0); MCV 106.2 fL (80.0-100.0); Mean Platelet Volume 8.3; Platelet Count 226 k/uL (150-450); RBC 2.98 m/uL (4.30-5.90); RDW 17.3 % (11.5-15.5); WBC 9.4 k/uL (3.8-10.6)
[2024-07-16 04:33] LABS: Macrocytosis Marked
[2024-07-16 04:35] LABS: African American GFR (CKD) 15 (>60 ml/min/1.73 sqM); Anion Gap 6 mmol/L; Blood Urea Nitrogen 86 mg/dL (9-20); Calcium 8.7 mg/dL (8.4-10.2); Carbon Dioxide 25 mmol/L (22-30); Chloride 100 mmol/L (98-107); Glucose 114 mg/dL (74-99); Non-African American GFR(CKD) 13 (>60 ml/min/1.73 sqM); Potassium 4.7 mmol/L (3.5-5.1); Sodium 131 mmol/L (137-145)
--- NOTE | 2024-07-16 07:44 | P.PN ---
Subjective History of present illness; patient 78-year-old gentleman with past medical history significant for A-fib, DVT, hypertension, hyperlipidemia presented the ER because of worsening weakness and fall. Patient states that for the last few days he has been noticing that his left lower leg was getting red and more painful. Patient has history of lower extremity swelling and normally wraps them to help with swelling. There was no complaint of fever or chills. Patient has been complaining of increasing weakness. Patient had a fall yesterday. Th ere was no complaint of any trauma to the head. There was no loss of consciousness. Denied any chest pain or shortness of breath. Because of the symptoms, patient brought to the ER Initial lab work done in the ER showed showed WBC 1.7, hemoglobin 12.6, platelet count 169, INR 10, sodium 136, potassium 3.5, BUN 52, creatinine 2.19, glucose 117, bilirubin 5 AST 167, ALT 48 troponin 0.012, albumin 3.2 UA positive for leukocyte esterase, urine WBC 14 Influenza A not detected Influenza B not detected RSV not detected COVID-19 not detected X-ray of pelvis done, no evidence of any fractures EKG done in the ER showed heart rate of 94, no ST segment elevation or depression seen, no T-wave inversions seen. Chest x-ray done in the ER showed small right pleural effusion CT head done showed no acute intracranial process CT cervical spine done showed no fractures. Duplex ultrasound of lower extremities done showed no DVT Patient admitted to internal medicine service 06/28 Patient is lying in bed does not look in distress He still complaining from some pain in his left leg about 3/10, his left leg swollen pink warm and tender He has been treated for CHF, he has bilateral leg swelling, it is hard to hear basal crepitation as he is obese He still feels generally weak No other new complaint He is currently treated with cefazolin but urine culture is growing Enterococcus. Patient denies overt UTI signs symptoms currently Also is on IV Lasix 40 mg 3 times a day He was given warfarin 5 mg after INR came down to 3.0 down to 2.1 today [place]calcitonin [place] [id number] Creatinine 2.2 today, was 2.1 last 2 days, baseline 1.4-1.7 Blood pressure is borderline 06/29 his left leg cellulitis is improving, still has swollen of the legs. No chest pain or dyspnea or other new complaint He is using CPAP machine at night Vitals are stable Labs from today are still pending. Yesterday his INR was therapeutic at 2.1. Urine culture is growing Enterococcus which is sensitive Continue with Coumadin. He denies any urinary tract symptoms he has external urinary catheter. Keep monitoring creatinine 06/30 Patient awake alert, using CPAP machine overnight. Denies chest pain or dyspnea He still complains from right shoulder pain from falling prior to coming to the hospital. He cannot raise his arm above his head with some limitation. We are going to order x-ray of the right shoulder. He still have generalized weakness He still have significant 3+ bilateral leg swelling, he is on IV Lasix 40 mg twice daily. However his INR has been trending up. Creatinine was 2.5 yes terday. From today still pending. Patient feels dry. His left leg cellulitis improving on IV cefazolin He continued on warfarin for his history of DVT and A-fib, INR is therapeutic. 07/01 Patient awake alert. He still complaining from some pain in his lower back improved with Jennings, right shoulder pain and x-ray showing no fracture but mild AC joint and glenoid joint arthropathy. Also patient followed by nephrology for acute kidney injury, creatinine slightly up from 2.89 up to 2.9. Currently he is placed on IV Lasix 40 mg daily, then switch to Lasix drip 10 mg/h and then later on lowered to 5 mg/h Flomax added as well as midodrine and Zaroxolyn. Blood pressure still borderline with systolic 88-111 Patient also on Augmentin for UTI with organism Enterococcus 07/02 Patient awake alert with no dizziness or generalized weakness although his blood pressure is on the low side. This morning was 92/58 He is currently being treated for left leg cellulitis and Enterococcus UTI and patient is on Unasyn Also he is on Lasix drip for his acute CHF and acute on chronic kidney disease, creatinine was 2.9, went up to 3.5 today He has been followed closely by nephrology and urology service, s/p Monzon catheter placement Also he is on Zaroxolyn, midodrine and furosemide. Continue with Eliquis while warfarin discontinued Patient on 07/15/2024 Patient remains in the ICU. He is in room 266. He is fully awake and oriented time place and person. He is breathing quiet and he looks relaxed not anxious. He is generally weak but with no other specific complaints His back pain about 3/10 He still has 2+ bilateral pitting leg edema Monzon catheter in place He is currently on Eliquis 2.5, IV Lasix 60 mg twice daily, IV Solu-Cortef at 50 mg as well as Levophed and metoprolol 100 mg. He is also on midodrine 10 mg He got hemodialysis yesterday with 2 L of fluid removed 07/16 Patient feels better No new complaint His back pain is 4/10, he takes Jennings at nighttime to control his pain Has bilateral pitting leg edema Objective - Vital Signs Vital signs: Vital Signs Temp 98.1 F 07/16/24 04:00 Pulse 83 07/16/24 07:00 Resp 13 07/16/24 07:00 BP 127/58 07/14/24 12:10 Pulse Ox 92 L 07/16/24 07:00 FiO2 21 07/14/24 08:21 Intake & Output 07/15/24 07/16/24 07/16/24 18:59 06:59 18:59 Intake Total 815.386 328.756 16 Output Total 122 160 15 Balance 693.386 168.756 1 Weight 167.8 kg Intake: IV 192 192 16 KVO 0.9 NS 120 120 10 pressure bag 72 72 6 Intake, IV Titration 19.386 136.756 Amount Norepinephrine 32 mg In 19.386 136.756 Sodium Chloride 0.9% 218 ml @ 0.03 MCG/KG/MIN 2.63 mls/hr IV .[facility]H [facility] Rx#: [id number] Oral 604 Output: Urine 122 160 15 Other: Voiding Method Indwelling Catheter Indwelling Catheter # Bowel Movements 1 ABP, PAP, CO, CI - Last Documented Arterial Blood Pressure 103/48 - Exam -GENERAL: The patient is alert and oriented x3, not in any acute distress. Well developed, well nourished. Obese HEENT: Pupils are round and equally reacting to light. EOMI. No scleral icterus. No conjunctival pallor. Normocephalic, atraumatic. No pharyngeal erythema. No thyromegaly. CARDIOVASCULAR: S1 and S2 present. No murmurs, rubs, or gallops. PULMONARY: Chest is clear to auscultation, no wheezing , no crackles. ABDOMEN: Soft, nontender, nondistended, normoactive bowel sounds. No palpable organomegaly. MUSCULOSKELETAL: No joint swelling or deformity. -EXTREMITIES: No cyanosis, clubbing, , 3+ bilateral pitting leg edema. Left leg is swollen, pink, warm and slightly tender. Bilateral pitting leg edema 1+, more on the left side NEUROLOGICAL: Gross neurological examination did not reveal any focal deficits. SKIN: No rashes. no petechiae. - Labs CBC & Chem 7: 07/16/24 04:10 07/16/24 04:10 Labs: Abnormal Lab Results - Last 24 Hours (Table) 07/16/24 07/16/24 Range/Units 04:10 04:10 RBC 2.98 L (4.30-5.90) m/uL Hgb 10.5 L (13.0-17.5) gm/dL Hct 31.6 L (39.0-53.0) % MCV 106.2 H (80.0-100.0) fL MCH 35.1 H (25.0-35.0) pg RDW 17.3 H (11.5-15.5) % Macrocytosis Marked A Sodium 131 L (137-145) mmol/L BUN 86 H (9-20) mg/dL Creatinine 4.10 H (0.66-1.25) mg/dL Glucose 114 H (74-99) mg/dL Assessment and Plan Assessment: Acute kidney injury on chronic kidney disease stage III Acute diastolic CHF with preserved ejection fraction Hypotension secondary to above requiring pressor support Acute left leg cellulitis, resolved Fall at home Acute urinary tract infection secondary to Enterococcus group D, resolved Hepatosplenomegaly, patient has been told by Dr. Hansen he has nonalcoholic liver cirrhosis Chronic atrial fibrillations on Coumadin with high INR on admission, currently improved. Currently switched to Eliquis Obesity with BMI of 39.6 History of DVT Plan: Continue with antibiotic as per ID team. Currently patient is off antibiotic with close monitoring Continue with Lasix intravenous, Zaroxolyn was discontinued. As per nephrology team recommendation. Also patient getting hemodialysis as per nephrology team.Monitor creatinine Pulmonary team consult Cardiology team consult Continue with Monzon catheter, Flomax and urology consult Continue with Eliquis Continue with IV Solu-Cortef Labs and medication were reviewed.. Continue same treatment. Continue with symptomatic treatment. Resume home medication. Monitor labs and vitals. DVT and GI prophylaxis. Further recommendations as per clinical course of the patient DVT prophylaxis: Eliquis GI Prophylaxis: Pepcid PT/OT: Pending Prognosis is guarded
--- NOTE | 2024-07-16 10:19 | P.PN ---
Subjective Progress Note Date: 07/16/24 This is a 78-year-old male patient with massive fluid overload, ongoing difficulty with chronic kidney failure as the patient has developed an acute on top of chronic renal disease with extensive third spacing and anasarca and possibly a component of cardiorenal syndrome. 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 Baseline creatinine is around 1.5 back in March 2024. The patient presented to us with volume overload, acute on top of chronic diastolic heart failure with moderate mitral regurgitation. Patient also was diagnosed having an Enterococcus urinary tract infection currently on IV Unasyn. Initial rate, attempts to diurese this patient with Lasix have failed due to ongoing hypotension. The patient was started on midodrine 10 mg p.o. 4 times daily. Subsequently, I was asked to transfer this patient to the ICU for hemodynamic support and pressor use as the patient was going to be started on Lasix 5 mg infusion in combination with Mala oxolyn 5 mg p.o. daily. Based on that, the patient was transferred to the ICU. Lasix s drip was started and the patient will be started also on norepinephrine for blood pressure support. He is currently awake and alert. Following commands. He is on oxygen at 2 L/min nasal cannula. His chest x-ray showing small bilateral pleural effusion and this is less x-ray that was done on 06/26/2024. Patient was evaluated today on 07/03/24, remains in the ICU, he was seen by Dr. Jp nance on consultation yesterday, he was placed on Lasix drip at 5 mg/h, making about 50 to 75 cc of urine per hour. Blood pressure is marginal he is requiring norepinephrine at 0.06 mcg/kg/min. Patient is not complaining of shortness of breath, he is on 2 L nasal cannula, he seems to be extremely swollen edematous and has anasarca. Nonetheless the patient is feeling better compared to yesterday. And seemsto be responding to the Lasix drip. WBC count is 8.4 hemoglobin 12.2 electrolytes are normal BUN is 92 creatinine 3.53., Relatively unchanged compared to yesterday.Patient's baseline creatinine on 06/26 was 2.19. Patient is receiving Unasyn for what seems to be acute urinary tract infection secondary to Enterococcus. Faecalis. Patient was evaluated today on 07/04/2024, remains in the ICU remains on Lasix drip and dose has been increased to 10 mg/h. Patient is requiring norepinephrine at 0.07 mcg/kg/min he is also on IV fluid at KVO. Antibiotics cooley he is on Unasyn for his UTI, and is also on Eliquis. Patient tells me that he is feeling better, breathing easier, and he continues to respond to Lasix but urine output did not improve much by increasing the dose of Lasix., WBC is 8.4 hemoglobin 11.9 basic metabolic profile is normal bicarb is 27 BUN is 95 creatinine 3.77 Gradually rising. His renal status is being addressed and followed by nephrology chest x-ray showed evidence of cardiomegaly and pulmonary vascular congestion. Patient remains on 2 L nasal cannula, and he is O2 saturat ion is 97%. Blood pressure is marginal, his mean arterial pressure is 68, patient is requiring norepinephrine Patient today on 07/05/2024, patient is not doing too great today. Patient is getting worse, he is developing worsening hypotension and requiring now higher doses of norepinephrine and higher doses of vasopressin. Patient required lines including central line and arterial line, and these were done today. Urine output remains about 35 to 40 cc/h, in spite of Lasix at 10 mg/h. His renal functioning is getting worse creatinine is up to 3.9 today. Again the patient is requiring norepinephrine and we have added vasopressin, patient seems to be developing acute kidney injury with ATN and hypotension as well as cardiorenal syndrome. Nephrology is considering to proceed with renal replacement therapy since the patient continues to remain volume overloaded. And urine output is not that great. His creatinine baseline in March was 1.5. Looking at his echocardiogram, patient has chronic diastolic congestive heart failure with moderate mitral regurgitation, and severe pulmonary hypertension. Patient is also receiving antibiotics for his right lower extremity cellulitis, in addition he has Enterococcus urinary tract infection addressed by infectious disease on the case.WBC count is 7.1 hemoglobin is 11.1 basic metabolic profile is normal bicarb is 23 BUN is 101 creatinine 3.94. Chest x-ray is showing worsening pleural effusion and pulmonary edema Reevaluate today on 07/06/2024, patient remains in the ICU, still on pressors requiring norepinephrine at 0.24 mcg/kg/min, patient did not require vasopressin yesterday. Still on midodrine. A right femoral dialysis catheter was placed yesterday by vascular surgery. Patient is supposed to be started on hemodialysis today. Clinically today, he seems to be feeling better compared to yesterday.Denies any cough wheezing or shortness of breath, patient feels generally weak. WBC count is 7.9 hemoglobin 11.8 electrolytes are normal BUN is 102 creatinine 4.31 patient remains on Lasix drip at 10 mg/h, and the plan is to hemodialyze today Patient was evaluated today on 07/07/2024, patient remains in the ICU on 2 L nasal cannula patient underwent hemodialysis yesterday and 2 L were removed. His BUN is 90 creatinine 4.13. Remains on Lasix drip at 10 mg/h he is still requiring norepinephrine at 0.21 mcg/kg/min, blood pressure remains marginal at best. Patient is still covered with Unasyn still on Eliquis, patient was placed on Lopressor at 100 mg p.o. or twice daily by cardiology his echocardiogram showed significant valvular heart disease, pulmonary hypertension, ejection fraction is 50 to 55%. Patient is complaining today of some bloating and abdominal discomfort, but no nausea no vomiting. No significant pain. WBC count today is 8.2 hemoglobin 11.3 electrolytes are normal BUN is 90 creatinine 4.13, chest x-ray showed mild pulmonary vascular congestion Patient was evaluated today on 07/08/2024, patient remains in the ICU still requiring pressors, he is on norepinephrine at 0.22 mcg/kg/min blood pressure remains marginal, patient is intermittently getting hemodialysis, remains on multiple cardiac meds but he is off Lasix drip at this point. Pulmonary cooley he is on 2 L nasal cannula, does not seem to be in distress. Chest x-ray today showed minimal right basilar atelectasis, no evidence of pulmonary edema. Apparently the patient did not tolerate hemodialysis treatment yesterday well, because of low blood pressure. WBC count is 9.3 hemoglobin 11.4 basic metabolic profile is normal BUN is 82 creatinine 3.49 Patient was seen today on 07/09/2024, patient remains in the ICU, remains on nor epinephrine and he is intermittently on hemodialysis. Off Lasix drip. On 3 L nasal cannula, on norepinephrine 0.13 mcg/kg/min on midodrine on IV fluid at KVO. Patient is also on Eliquis. Urine output is about 25 to 40 cc/h. His CVP is 15 patient had 2 L removed by hemodialysis on 07/08 and his CVP today is ranging between 12-15. Pulmonary coloey is not in distress, however his blood pressure remains extremely low requiring pressors hence I cannot move the patient out of the ICU as long as he is on pressors The patient is seen today July 10, 2024 in follow-up in the intensive care unit. Awake and alert in no acute distress. Currently resting fairly comfortably in bed. He is maintaining good O2 saturations in the 90s on 2 L/min per nasal cannula. He is still requiring norepinephrine at 20 mcg/min. Normal saline at KVO. Urine culture was positive for Enterococcus faecalis. Blood cultures revealed no growth. White count 10.1. Hemoglobin 11.4. Sodium 133. Potassium 4.3. Bicarb 26. BUN 83. Creatinine 3.79. Glucose 104. He is continued on Lasix 60 mg every 12 hours. Anticoagulated with Eliquis. Remains on midodrine 10 mg 4 times daily. The patient is seen today July 11, 2024 in follow-up in the intensive care unit. He is currently resting in bed. Awake and alert in no acute distress. Currently undergoing hemodialysis. He is still requiring norepinephrine at 0.17 mcg/kg/min. He has normal saline at KVO. He is maintaining O2 saturation in the 90s on 2 L/min per nasal cannula. His TSH did come back abnormal at 6.87, cortisol level was 8.8. He will be initiated on Synthroid 75 mcg IV daily and Solu-Cortef 50 mg IV every 6 hours. Continued on midodrine. He remains on Lasix 60 mg IV every 12 hours. Anticoagulated with Eliquis. White count 8.4. Hemoglobin 11.1. Platelets 169. Sodium 133. Potassium 4.2. Bicarb 27. BUN 67. Creatinine 3.30. Glucose 102. The patient is seen today July 12, 2024 in follow-up in the intensive care unit. He is awake and alert in no acute distress. Currently receiving hemodialysis with another 2 L planned to be removed. He is continued on norepinephrine down to 17 mcg/min. He had been initiated on Synthroid and Solu- Cortef with improvement in his blood pressure. White count 7.3. Hemoglobin 10.8. Platelets 151. Sodium 133. Potassium 4.2. Bicarb 27. BUN 66. Creatinine 3.31. Glucose 130. He remains on IV diuretics. Anticoagulated with Eliquis. Currently in a -3.7 L balance. The patient is seen today July 13, 2024 in follow-up in the intensive care unit. He is resting comfortably in bed. Awake and alert in no acute distress. Maintaining O2 saturations in the 90s on 2 L/min per nasal cannula. He has normal saline at 10 mL/h. He is still requiring norepinephrine at 14 mcg/min. He is continued on Synthroid and Solu-Cortef. White count 12.4. Hemoglobin 11.5. Platelets 236. Sodium 132. Potassium 4.0. Bicarb 28. BUN 65. Creatinine 2.97. Glucose 116. He remains on Lasix 60 mg IV every 12 hours. Currently in a positive balance. Plan is for hemodialysis again tomorrow. The patient is seen today July 14, 2024 in follow-up in the intensive care unit. He is currently awake and alert in no acute distress resting comfortably in bed. Maintaining good O2 saturations in the 90s on room air. He is currently receiving hemodialysis with a goal of 2 L to be removed today. He is still requiring norepinephrine at 7 mcg/min. He is continued on Lasix 60 mg every 12 hours. He remains on Synthroid and Solu-Cortef. Also continued on midodrine. Urine culture was positive for Enterococcus faecalis. Blood cultures revealed no growth. White count 10.2. Hemoglobin 10.6. Platelets 182. Sodium 132. Potassium 4.2. Bicarb 26. BUN 79. Creatinine 3.85. Glu cose 109. The patient is seen today July 15, 2024 in follow-up in the intensive care unit. He is resting comfortably in bed. Awake and alert in no acute distress. Maintaining good O2 saturations in the 90s on room air. He is still requiring norepinephrine currently at 12 mcg/min. He is continued on Solu-Cortef, Synthroid, midodrine. He remains on IV diuretics per nephrology. He received hemodialysis yesterday with 2 L removed. Chest x-ray revealed chronic changes without evidence of acute pulmonary process. He did have a right internal jugular hemodialysis catheter placed yesterday. Femoral catheter was removed. Urine culture was positive for Enterococcus faecalis. Blood cultures revealed no growth. White count 8.0. Hemoglobin 10.5. Platelets 185. Sodium 132. Potassium 4.2. Bicarb 26. BUN 67. Creatinine 3.46. Glucose 113. The patient is seen today July 16, 2024 in follow-up in the intensive care unit. He is awake and alert in no acute distress. Resting comfortably in bed. Maintaining good O2 saturations in the 90s on room air. His norepinephrine is currently off. He is continued on midodrine. He is anticoagulated with Eliquis. Plan is for hemodialysis tomorrow and to continue a Wednesday schedule. White count 9.4. Hemoglobin 10.5. Platelets 226. Sodium 131. Potassium 4.7. Bicarb 25. BUN 86. Creatinine 4.1. Glucose 114. He remains on a low-salt diet and 1500 cc fluid restriction. IV Lasix discontinued per nephrology. Objective - Vital Signs Vital signs: Vital Signs Temp 97.6 F 07/16/24 08:00 Pulse 91 07/16/24 09:00 Resp 19 07/16/24 09:00 BP 127/58 07/14/24 12:10 Pulse Ox 94 L 07/16/24 09:00 FiO2 21 07/14/24 08:21 Intake & Output 07/15/24 07/16/24 07/16/24 18:59 06:59 18:59 Intake Total 815.386 328.756 49.95 Output Total 122 160 60 Balance 693.386 168.756 -10.05 Weight 167.8 kg Intake: IV 192 192 48 KVO 0.9 NS 120 120 30 pressure bag 72 72 18 Intake, IV Titration 19.386 136.756 1.95 Amount Norepinephrine 32 mg In 19.386 136.756 1.95 Sodium Chloride 0.9% 218 ml @ 0.03 MCG/KG/MIN 2.63 mls/hr IV .Q24H [facility] Rx#: [id number] Oral 604 Output: Urine 122 160 60 Other: Voiding Method Indwelling Catheter Indwelling Catheter Indwelling Catheter # Bowel Movements 1 ABP, PAP, CO, CI - Last Documented Arterial Blood Pressure 106/46 - Exam GENERAL EXAM: Alert, very pleasant 78-year-old male, on room air, in no acute distress. EYES: Normal reaction of pupils, equal size. NOSE: Clear with pink turbinates. THROAT: No erythema or exudates. NECK: No masses, no JVD. Right IJ hemodialysis catheter in place. CHEST: No chest wall deformity. LUNGS: Equal air entry with crackles in the right lung base. CVS: S1 and S2 normal with no audible murmur, regular rhythm. ABDOMEN: No hepatosplenomegaly, normal bowel sounds, no guarding or rigidity. SPINE: No scoliosis or deformity SKIN: No rashes CENTRAL NERVOUS SYSTEM: No focal deficits, tone is normal in all 4 extremities. EXTREMITIES: There is no peripheral edema. No clubbing, no cyanosis. Peripheral pulses are intact. - Labs CBC & Chem 7: 07/16/24 04:10 07/16/24 04:10 Labs: Abnormal Lab Results - Last 24 Hours (Table) 07/16/24 07/16/24 Range/Units 04:10 04:10 RBC 2.98 L (4.30-5.90) m/uL Hgb 10.5 L (13.0-17.5) gm/dL Hct 31.6 L (39.0-53.0) % MCV 106.2 H (80.0-100.0) fL MCH 35.1 H (25.0-35.0) pg RDW 17.3 H (11.5-15.5) % Macrocytosis Marked A Sodium 131 L (137-145) mmol/L BUN 86 H (9-20) mg/dL Creatinine 4.10 H (0.66-1.25) mg/dL Glucose 114 H (74-99) mg/dL Assessment and Plan Assessment: Acute on chronic diastolic congestive heart failure with hypotension, requiring pressors however currently off norepinephrine Acute on chronic stage IIIb kidney disease with massive volume overload and initiated on hemodialysis Hyperlipidemia Chronic atrial fibrillation, maintained on anticoagulation with Eliquis Enterococcus faecalis urinary tract infection complete Unasyn. Severe pulmonary hypertension Morbid obesity Gout History of obstructive sleep apnea, not tolerant to CPAP therapy Previous history of WPW and SVT Osteoarthritis Previous history of DVT of lower extremities Glaucoma Plan: The patient was seen and evaluated Currently stable and on room air Labs and medications reviewed Currently off the norepinephrine Lasix was discontinued Continue Solu-Cortef, Synthroid, midodrine Hemodialysis Wednesday Could transfer out of the ICU later today if he remains off pressors I have personally seen and examined the patient, performed the documentation and the assessment and plan as written. Number of minutes spent on the visit: 10. Dictation was produced using [employer] dictation software. Please excuse any g rammatical, word or spelling errors.
--- NOTE | 2024-07-16 11:17 | P.PN ---
Subjective Progress Note Date: 07/16/24 Patient is seen in follow-up for acute kidney injury on chronic kidney disease. On IV Lasix. Urine output 10-20 cc an hour. Oral intake fair. Started on hemodialysis July 06, 2024. On Levophed. Tolerating dialysis well. Vital signs are stable. On Levophed. General: No acute distress. HEENT: Head exam is unremarkable. On room air. LUNGS: No audible rhonchi or wheezes. HEART: Rate and Rhythm are regular. ABDOMEN: Obese, nontender. EXTREMITITES: 1+ edema. Lower extremities wrapped. Objective - Vital Signs Vital signs: Vital Signs Temp 97.6 F 07/16/24 08:00 Pulse 91 07/16/24 09:00 Resp 19 07/16/24 09:00 BP 127/58 07/14/24 12:10 Pulse Ox 94 L 07/16/24 09:00 FiO2 21 07/14/24 08:21 Intake & Output 07/15/24 07/16/24 07/16/24 18:59 06:59 18:59 Intake Total 815.386 328.756 49.95 Output Total 122 160 60 Balance 693.386 168.756 -10.05 Weight 167.8 kg Intake: IV 192 192 48 KVO 0.9 NS 120 120 30 pressure bag 72 72 18 Intake, IV Titration 19.386 136.756 1.95 Amount Norepinephrine 32 mg In 19.386 136.756 1.95 Sodium Chloride 0.9% 218 ml @ 0.03 MCG/KG/MIN 2.63 mls/hr IV .Q24H [facility] Rx#: [id number] Oral 604 Output: Urine 122 160 60 Other: Voiding Method Indwelling Catheter Indwelling Catheter Indwelling Catheter # Bowel Movements 1 ABP, PAP, CO, CI - Last Documented Arterial Blood Pressure 106/46 - Labs CBC & Chem 7: 07/16/24 04:10 07/16/24 04:10 Labs: Abnormal Lab Results - Last 24 Hours (Table) 07/16/24 07/16/24 Range/Units 04:10 04:10 RBC 2.98 L (4.30-5.90) m/uL Hgb 10.5 L (13.0-17.5) gm/dL Hct 31.6 L (39.0-53.0) % MCV 106.2 H (80.0-100.0) fL MCH 35.1 H (25.0-35.0) pg RDW 17.3 H (11.5-15.5) % Macrocytosis Marked A Sodium 131 L (137-145) mmol/L BUN 86 H (9-20) mg/dL Creatinine 4.10 H (0.66-1.25) mg/dL Glucose 114 H (74-99) mg/dL Assessment and Plan Assessment: 1. Acute kidney injury secondary to ATN secondary to hypotension and cardiorenal syndrome. Creatinine up to 4.3 dated July 06, 2024. Started on hemodialysis July 06, 2024 via femoral dialysis catheter now with Permcath. No hydronephrosis noted on ultrasound. Trace protein on UA. 2. 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 Creatinine 1.5 in March 2024. 3. Acute on chronic diastolic CHF and moderate mitral consultation, severe tricuspid regurgitation and pulmonary hypertension. 4. Volume overload. Improved with diuresis and ultrafiltration. 5. Right lower extremity cellulitis and Enterococcus UTI s/p antibiotics. ID following. 6. Hypervolemic hyponatremia. Stable. 7. Hyperphosphatemia secondary to acute kidney injury. Phosphorus level 5.0 dated July 12, 2024. On Renvela. Plan: Continue HD MWF schedule Off IV Lasix to see if allows to come off levophed Low-salt diet and 1500 cc fluid restriction. Maintain midodrine. Avoid nephrotoxins. Continue to monitor renal function and urine output.
[2024-07-17 05:28] LABS: Glucose,Whole Blood 109 mg/dL (70-110)
[2024-07-17 05:44] LABS: Anisocytosis Slight; Basophils % (A) 0 %; Eosinophils % (A) 0 %; HCT 31.2 % (39.0-53.0); HGB 10.7 gm/dL (13.0-17.5); Lymphocytes # (A) 0.5 k/uL (1.0-4.8); Lymphocytes % (A) 6 %; MCHC 34.2 g/dL (31.0-37.0); MCV 105.1 fL (80.0-100.0); Macrocytosis Marked; Mean Platelet Volume 9.1; Monocytes # (A) 0.4 k/uL (0-1.0); Monocytes % (A) 5 %; Neutrophils # (A) 7.2 k/uL (1.3-7.7); Neutrophils % (A) 88 %; Platelet Count 184 k/uL (150-450); RBC 2.97 m/uL (4.30-5.90); RDW 18.1 % (11.5-15.5); WBC 8.1 k/uL (3.8-10.6)
[2024-07-17 06:01] LABS: African American GFR (CKD) 14 (>60 ml/min/1.73 sqM); Anion Gap 5 mmol/L; Calcium 8.8 mg/dL (8.4-10.2); Carbon Dioxide 26 mmol/L (22-30); Chloride 100 mmol/L (98-107); Glucose 104 mg/dL (74-99); Non-African American GFR(CKD) 12 (>60 ml/min/1.73 sqM); Potassium 4.8 mmol/L (3.5-5.1); Sodium 131 mmol/L (137-145)
[2024-07-17 06:09] LABS: Blood Urea Nitrogen 103 mg/dL (9-20)
--- NOTE | 2024-07-17 08:30 | P.PN ---
Subjective Progress Note Date: 07/17/24 This is a 78-year-old male who originally presented to the emergency department after a fall at home, reportedly his knee gave out. Patient also complained of shortness of breath and feels poorly overall. Patient became hypotensive and was transferred to the ICU. Creatinine remains elevated and he has been on Lasix drip. Patient lives with his at home, who he cares for. Patient seen this morning resting comfortably in bed. He is still hypotensive this morning. Creatinine today is 3.77. 07/10/2024 Patient was started on hemodialysis on 07/06. He is currently off of lasix drip but still on pressors. He is seen this morning laying in bed. He reports he is more fatigued today. 07/11/2024 Patient seen and evaluated laying in bed this morning. He is still on Levophed. Creatinine today is 3.3. He does appear more fatigued today. He did have dialysis yesterday. 07/13/2024 Patient seen and evaluated laying in bed this morning. He still remains on Levophed. He had dialysis yesterday. Creatinine today is 2.97. Patient appears to be in better spirits today. 07/17/2024 Patient seen and evaluated laying in bed this morning eating breakfast. He is currently off of Levophed and pressure is holding. Dialysis is now on a Wednesday schedule. Creatinine is 4.52 today. Objective - Vital Signs Vital signs: Vital Signs Temp 98.1 F 07/17/24 04:00 Pulse 92 07/17/24 07:00 Resp 20 07/17/24 07:00 BP 93/64 07/17/24 07:00 Pulse Ox 96 07/17/24 07:00 FiO2 21 07/14/24 08:21 Intake & Output 07/16/24 07/17/24 07/17/24 18:59 06:59 18:59 Intake Total 603.504 217.004 Output Total 170 55 Balance 433.504 162.004 Weight 167.285 kg Intake: IV 192 208 KVO 0.9 NS 120 130 pressure bag 72 78 Intake, IV Titration 11504 9.004 Amount Norepinephrine 32 mg In 9.004 Sodium Chloride 0.9% 218 ml @ 0.03 MCG/KG/MIN 2.63 mls/hr IV .Q24H [facility] Rx#: [id number] Oral 400 Output: Urine 170 55 Other: Voiding Method Indwelling Catheter Indwelling Catheter ABP, PAP, CO, CI - Last Documented Arterial Blood Pressure 112/51 - Constitutional General appearance: Present: cooperative, no acute distress - EENT Eyes: Present: PERRLA - Neck Neck: Present: normal ROM. Absent: lymphadenopathy, rigidity - Respiratory Respiratory: bilateral: CTA - Cardiovascular Heart sounds: normal: S1, S2 - Gastrointestinal General gastrointestinal: Present: soft. Absent: tenderness - Integumentary Integumentary: Present: normal, normal turgor - Musculoskeletal Musculoskeletal: Present: generalized weakness - Psychiatric Psychiatric: Present: A&O x's 3 - Labs CBC & Chem 7: 07/17/24 05:25 07/17/24 05:25 Labs: Abnormal Lab Results - Last 24 Hours (Table) 07/17/24 07/17/24 Range/Units 05:25 05:25 RBC 2.97 L (4.30-5.90) m/uL Hgb 10.7 L (13.0-17.5) gm/dL Hct 31.2 L (39.0-53.0) % MCV 105.1 H (80.0-100.0) fL MCH 36.0 H (25.0-35.0) pg RDW 18.1 H (11.5-15.5) % Lymphocytes # 0.5 L (1.0-4.8) k/uL Macrocytosis Marked A Sodium 131 L (137-145) mmol/L BUN 103 H* (9-20) mg/dL Creatinine 4.52 H (0.66-1.25) mg/dL Glucose 104 H (74-99) mg/dL Assessment and Plan (1) Hypotension Current Visit: Yes Status: Acute Code(s): I95.9 - HYPOTENSION, UNSPECIFIED SNOMED Code(s): 98468340 (2) Weakness Current Visit: Yes Status: Acute Code(s): R53.1 - WEAKNESS SNOMED Code(s): 72279480 (3) Cellulitis Current Visit: Yes Status: Acute Code(s): L03.90 - CELLULITIS, UNSPECIFIED SNOMED Code(s): 683780533 (4) Acute kidney injury Current Visit: Yes Status: Acute Code(s): N17.9 - ACUTE KIDNEY FAILURE, UNSPECIFIED SNOMED Code(s): 91316956 (5) Acute on chronic heart failure Current Visit: Yes Status: Acute Code(s): I50.9 - HEART FAILURE, UNSPECIFIED SNOMED Code(s): 190776831 (6) Hyponatremia Current Visit: Yes Status: Acute Code(s): E87.1 - HYPO-OSMOLALITY AND HYPONATREMIA SNOMED Code(s): 46944951 Plan: Check CBC and CMP in the morning. Appreciate multiple consultants. Patient seen and evaluated by nurse practitioner, physician in agreement with plan
--- NOTE | 2024-07-17 10:18 | IR ---
EXAMINATION TYPE: IR cvc insert central tunneled DATE OF EXAM: 07/17/2024 10:02 AM COMPARISON: Pre Operative Images if available both CT/MRI or plain film CLINICAL INDICATION: Male, 78 years old with history of dialysis, 5.37 DAP; TECHNIQUE: IR cvc insert central tunneled, multiple fluoroscopic images provided for procedure. Total fluoroscopy time: Not reported seconds Total submitted images to PACS: 52 DAP: 5.37 mGym2 Gycm2 uGym2 cGycm2 or equivalent. FINDINGS: IMPRESSION: 1. Report was generated for administrative purposes only. 2. Please see the operative/procedural note for further details. [facility], , 07/17/2024 10:16 AM
--- NOTE | 2024-07-17 13:34 | P.PN ---
Subjective Patient is seen for follow-up for acute kidney injury and chronic kidney disease. Started on hemodialysis on 07/06/2024 due to worsening volume status. currently seen on hemodialysis. Blood pressure remains on the lower side. Urine output is low, 0-10 mL per hour Objective - Vital Signs Vital signs: Vital Signs Temp 97.5 F L 07/17/24 08:00 Pulse 80 07/17/24 11:00 Resp 23 07/17/24 11:00 BP 91/63 07/17/24 11:00 Pulse Ox 98 07/17/24 11:00 FiO2 21 07/17/24 09:05 Intake & Output 07/16/24 07/17/24 07/17/24 18:59 06:59 18:59 Intake Total 603.504 217.004 96 Output Total 170 55 325 Balance 433.504 162.004 -229 Weight 167.285 kg Intake: IV 192 208 96 KVO 0.9 NS 120 130 60 pressure bag 72 78 36 Intake, IV Titration 11.504 9.004 Amount Norepinephrine 32 mg In 11.504 9.004 Sodium Chloride 0.9% 218 ml @ 0.03 MCG/KG/MIN 2.63 mls/hr IV .Q24H [facility] Rx#: [id number] Oral 400 Output: Urine 170 55 325 Other: Voiding Method Indwelling Catheter Indwelling Catheter # Bowel Movements 1 ABP, PAP, CO, CI - Last Documented Arterial Blood Pressure 103/44 - Exam Patient is awake, comfortable, no acute distress. Examination of the heart S1 and S2 Examination of the lungs decreased breath sounds at the bases Abdomen is soft obese nontender Examination of lower extremities shows edema 1+ bilaterally, improving [employer] exam grossly intact - Labs CBC & Chem 7: 07/17/24 05:25 07/17/24 05:25 Labs: Abnormal Lab Results - Last 24 Hours (Table) 07/17/24 07/17/24 Range/Units 05:25 05:25 RBC 2.97 L (4.30-5.90) m/uL Hgb 10.7 L (13.0-17.5) gm/dL Hct 31.2 L (39.0-53.0) % MCV 105.1 H (80.0-100.0) fL MCH 36.0 H (25.0-35.0) pg RDW 18.1 H (11.5-15.5) % Lymphocytes # 0.5 L (1.0-4.8) k/uL Macrocytosis Marked A Sodium 131 L (137-145) mmol/L BUN 103 H* (9-20) mg/dL Creatinine 4.52 H (0.66-1.25) mg/dL Glucose 104 H (74-99) mg/dL Assessment and Plan Assessment: 1. Acute kidney injury secondary to ATN secondary to hypotension and cardiorenal syndrome. Started on hemodialysis on 07/06/2024 due to worsening renal function and persistent volume overload. Patient did not tolerate initial treatment well due to significant hypotension, however we were able to get 2 L off with dialysis yesterday. No hydronephrosis noted on ultrasound. Trace p rotein on UA. 2. 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 Creatinine 1.5 in March 2024. 3. Acute on chronic diastolic CHF and moderate mitral consultation, severe tricuspid regurgitation and pulmonary hypertension. 4. Volume overload. Maintained on Lasix drip. 5. Right lower extremity cellulitis and Enterococcus UTI on antibiotics. ID following. 6. Hypervolemic hyponatremia. Stable. Plan: hemodialysis on Wednesday schedule Repeat labs in a.m.
--- NOTE | 2024-07-17 14:31 | P.PN ---
Subjective Progress Note Date: 07/17/24 This is a 78-year-old male patient with massive fluid overload, ongoing difficulty with chronic kidney failure as the patient has developed an acute on top of chronic renal disease with extensive third spacing and anasarca and possibly a component of cardiorenal syndrome. 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 Baseline creatinine is around 1.5 back in March 2024. The patient presented to us with volume overload, acute on top of chronic diastolic heart failure with moderate mitral regurgitation. Patient also was diagnosed having an Enterococcus urinary tract infection currently on IV Unasyn. Initial rate, attempts to diurese this patient with Lasix have failed due to ongoing hypotension. The patient was started on midodrine 10 mg p.o. 4 times daily. Subsequently, I was asked to transfer this patient to the ICU for hemodynamic support and pressor use as the patient was going to be started on Lasix 5 mg infusion in combination with Za roxolyn 5 mg p.o. daily. Based on that, the patient was transferred to the ICU. Lasix s drip was started and the patient will be started also on norepinephrine for blood pressure support. He is currently awake and alert. Following commands. He is on oxygen at 2 L/min nasal cannula. His chest x-ray showing small bilateral pleural effusion and this is less x-ray that was done on 06/26/2024. Patient was evaluated today on 07/03/24, remains in the ICU, he was seen by Dr. Jp nance on consultation yesterday, he was placed on Lasix drip at 5 mg/h, making about 50 to 75 cc of urine per hour. Blood pressure is marginal he is requiring norepinephrine at 0.06 mcg/kg/min. Patient is not complaining of shortness of breath, he is on 2 L nasal cannula, he seems to be extremely swollen edematous and has anasarca. Nonetheless the patient is feeling better compared to yesterday. And seemsto be responding to the Lasix drip. WBC count is 8.4 hemoglobin 12.2 electrolytes are normal BUN is 92 creatinine 3.53., Relatively unchanged compared to yesterday.Patient's baseline creatinine on 06/26 was 2.19. Patient is receiving Unasyn for what seems to be acute urinary tract infection secondary to Enterococcus. Faecalis. Patient was evaluated today on 07/04/2024, remains in the ICU remains on Lasix drip and dose has been increased to 10 mg/h. Patient is requiring norepinephrine at 0.07 mcg/kg/min he is also on IV fluid at KVO. Antibiotics cooley he is on Unasyn for his UTI, and is also on Eliquis. Patient tells me that he is feeling better, breathing easier, and he continues to respond to Lasix but urine output did not improve much by increasing the dose of Lasix., WBC is 8.4 hemoglobin 11.9 basic metabolic profile is normal bicarb is 27 BUN is 95 creatinine 3.77 Gradually rising. His renal status is being addressed and followed by nephrology chest x-ray showed evidence of cardiomegaly and pulmonary vascular congestion. Patient remains on 2 L nasal cannula, and he is O2 satura tion is 97%. Blood pressure is marginal, his mean arterial pressure is 68, patient is requiring norepinephrine Patient today on 07/05/2024, patient is not doing too great today. Patient is getting worse, he is developing worsening hypotension and requiring now higher doses of norepinephrine and higher doses of vasopressin. Patient required lines including central line and arterial line, and these were done today. Urine output remains about 35 to 40 cc/h, in spite of Lasix at 10 mg/h. His renal functioning is getting worse creatinine is up to 3.9 today. Again the patient is requiring norepinephrine and we have added vasopressin, patient seems to be developing acute kidney injury with ATN and hypotension as well as cardiorenal syndrome. Nephrology is considering to proceed with renal replacement therapy since the patient continues to remain volume overloaded. And urine output is no t that great. His creatinine baseline in March was 1.5. Looking at his echocardiogram, patient has chronic diastolic congestive heart failure with moderate mitral regurgitation, and severe pulmonary hypertension. Patient is also receiving antibiotics for his right lower extremity cellulitis, in addition he has Enterococcus urinary tract infection addressed by infectious disease on the case.WBC count is 7.1 hemoglobin is 11.1 basic metabolic profile is normal bicarb is 23 BUN is 101 creatinine 3.94. Chest x-ray is showing worsening pleural effusion and pulmonary edema Reevaluate today on 07/06/2024, patient remains in the ICU, still on pressors requiring norepinephrine at 0.24 mcg/kg/min, patient did not require vasopressin yesterday. Still on midodrine. A right femoral dialysis catheter was placed yesterday by vascular surgery. Patient is supposed to be started on hemodialysis today. Clinically today, he seems to be feeling better compared to yesterday.Denies any cough wheezing or shortness of breath, patient feels generally weak. WBC count is 7.9 hemoglobin 11.8 electrolytes are normal BUN is 102 creatinine 4.31 patient remains on Lasix drip at 10 mg/h, and the plan is to hemodialyze today Patient was evaluated today on 07/07/2024, patient remains in the ICU on 2 L nasal cannula patient underwent hemodialysis yesterday and 2 L were removed. His BUN is 90 creatinine 4.13. Remains on Lasix drip at 10 mg/h he is still requiring norepinephrine at 0.21 mcg/kg/min, blood pressure remains marginal at best. Patient is still covered with Unasyn still on Eliquis, patient was placed on Lopressor at 100 mg p.o. or twice daily by cardiology his echocardiogram showed significant valvular heart disease, pulmonary hypertension, ejection fraction is 50 to 55%. Patient is complaining today of some bloating and abdominal discomfort, but no nausea no vomiting. No significant pain. WBC count today is 8.2 hemoglobin 11.3 electrolytes are normal BUN is 90 creatinine 4.13, chest x-ray showed mild pulmonary vascular congestion Patient was evaluated today on 07/08/2024, patient remains in the ICU still requiring pressors, he is on norepinephrine at 0.22 mcg/kg/min blood pressure remains marginal, patient is intermittently getting hemodialysis, remains on multiple cardiac meds but he is off Lasix drip at this point. Pulmonary cooley he is on 2 L nasal cannula, does not seem to be in distress. Chest x-ray today showed minimal right basilar atelectasis, no evidence of pulmonary edema. Apparently the patient did not tolerate hemodialysis treatment yesterday well, because of low blood pressure. WBC count is 9.3 hemoglobin 11.4 basic metabolic profile is normal BUN is 82 creatinine 3.49 Patient was seen today on 07/09/2024, patient remains in the ICU, remains on no repinephrine and he is intermittently on hemodialysis. Off Lasix drip. On 3 L nasal cannula, on norepinephrine 0.13 mcg/kg/min on midodrine on IV fluid at KVO. Patient is also on Eliquis. Urine output is about 25 to 40 cc/h. His CVP is 15 patient had 2 L removed by hemodialysis on 07/08 and his CVP today is ranging between 12-15. Pulmonary cooley is not in distress, however his blood pressure remains extremely low requiring pressors hence I cannot move the patient out of the ICU as long as he is on pressors The patient is seen today July 10, 2024 in follow-up in the intensive care unit. Awake and alert in no acute distress. Currently resting fairly comfortably in bed. He is maintaining good O2 saturations in the 90s on 2 L/min per nasal cannula. He is still requiring norepinephrine at 20 mcg/min. Normal saline at KVO. Urine culture was positive for Enterococcus faecalis. Blood cultures revealed no growth. White count 10.1. Hemoglobin 11.4. Sodium 133. Potassium 4.3. Bicarb 26. BUN 83. Creatinine 3.79. Glucose 104. He is continued on Lasix 60 mg every 12 hours. Anticoagulated with Eliquis. Remains on midodrine 10 mg 4 times daily. The patient is seen today July 11, 2024 in follow-up in the intensive care unit. He is currently resting in bed. Awake and alert in no acute distress. Currently undergoing hemodialysis. He is still requiring norepinephrine at 0.17 mcg/kg/min. He has normal saline at KVO. He is maintaining O2 saturation in the 90s on 2 L/min per nasal cannula. His TSH did come back abnormal at 6.87, cortisol level was 8.8. He will be initiated on Synthroid 75 mcg IV daily and Solu-Cortef 50 mg IV every 6 hours. Continued on midodrine. He remains on Lasix 60 mg IV every 12 hours. Anticoagulated with Eliquis. White count 8.4. Hemoglobin 11.1. Platelets 169. Sodium 133. Potassium 4.2. Bicarb 27. BUN 67. Creatinine 3.30. Glucose 102. The patient is seen today July 12, 2024 in follow-up in the intensive care unit. He is awake and alert in no acute distress. Currently receiving hemodialysis with another 2 L planned to be removed. He is continued on norepinephrine down to 17 mcg/min. He had been initiated on Synthroid and Solu- Cortef with improvement in his blood pressure. White count 7.3. Hemoglobin 10.8 . Platelets 151. Sodium 133. Potassium 4.2. Bicarb 27. BUN 66. Creatinine 3.31. Glucose 130. He remains on IV diuretics. Anticoagulated with Eliquis. Currently in a -3.7 L balance. The patient is seen today July 13, 2024 in follow-up in the intensive care unit. He is resting comfortably in bed. Awake and alert in no acute distress. Maintaining O2 saturations in the 90s on 2 L/min per nasal cannula. He has normal saline at 10 mL/h. He is still requiring norepinephrine at 14 mcg/min. He is continued on Synthroid and Solu-Cortef. White count 12.4. Hemoglobin 11.5. Platelets 236. Sodium 132. Potassium 4.0. Bicarb 28. BUN 65. Creatinine 2.97. Glucose 116. He remains on Lasix 60 mg IV every 12 hours. Currently in a positive balance. Plan is for hemodialysis again tomorrow. The patient is seen today July 14, 2024 in follow-up in the intensive care unit. He is currently awake and alert in no acute distress resting comfortably in bed. Maintaining good O2 saturations in the 90s on room air. He is currently receiving hemodialysis with a goal of 2 L to be removed today. He is still requiring norepinephrine at 7 mcg/min. He is continued on Lasix 60 mg srinivas ry 12 hours. He remains on Synthroid and Solu-Cortef. Also continued on midodrine. Urine culture was positive for Enterococcus faecalis. Blood cultures revealed no growth. White count 10.2. Hemoglobin 10.6. Platelets 182. Sodium 132. Potassium 4.2. Bicarb 26. BUN 79. Creatinine 3.85. Gl ucose 109. The patient is seen today July 15, 2024 in follow-up in the intensive care unit. He is resting comfortably in bed. Awake and alert in no acute distress. Maintaining good O2 saturations in the 90s on room air. He is still requiring norepinephrine currently at 12 mcg/min. He is continued on Solu-Cortef, Synthroid, midodrine. He remains on IV diuretics per nephrology. He received hemodialysis yesterday with 2 L removed. Chest x-ray revealed chronic changes without evidence of acute pulmonary process. He did have a right internal jugular hemodialysis catheter placed yesterday. Femoral catheter was removed. Urine culture was positive for Enterococcus faecalis. Blood cultures revealed no growth. White count 8.0. Hemoglobin 10.5. Platelets 185. Sodium 132. Potassium 4.2. Bicarb 26. BUN 67. Creatinine 3.46. Glucose 113. The patient is seen today July 16, 2024 in follow-up in the intensive care unit. He is awake and alert in no acute distress. Resting comfortably in bed. Maintaining good O2 saturations in the 90s on room air. His norepinephrine is currently off. He is continued on midodrine. He is anticoagulated with Eliquis. Plan is for hemodialysis tomorrow and to continue a Wednesday schedule. White count 9.4. Hemoglobin 10.5. Platelets 226. Sodium 131. Potassium 4.7. Bicarb 25. BUN 86. Creatinine 4.1. Glucose 114. He remains on a low-salt diet and 1500 cc fluid restriction. IV Lasix discontinued per nephrology. On 07/17/2024, the patient is being seen for a follow-up., Comfortable on room air oxygen. Undergoing hemodialysis. Direct the patient was episodes of hypotension and the patient was encountering during hemodialysis. This morning, he is off pressors and is undergoing dialysis without any major issues. Blood pressure is on the lower side. It is stable for now. He is on no pressors. Urine output is minimal. He remains on metoprolol at a dose of 100 mg twice a day and his rate is under adequate control in terms of atrial fibrillation and the patient remains on anticoagulation with Eliquis 2.5 mg p.o. twice a day. He is also on midodrine 10 mg 4 times daily. White cell count is at 8 with hemoglobin 10.7 and a platelet count of 184. BUN is 103 with a creatinine of 4.5 and a sodium is at 131. Potassium level is at 4.8. He is awake and alert and communicating. No other significant events overnight. Undergoing hemodialysis this morning. Objective - Vital Signs Vital signs: Vital Signs Temp 97.5 F L 07/17/24 08:00 Pulse 78 07/17/24 10:00 Resp 16 07/17/24 10:00 BP 88/57 07/17/24 10:00 Pulse Ox 97 07/17/24 10:00 FiO2 21 07/17/24 09:05 Intake & Output 07/16/24 07/17/24 07/17/24 18:59 06:59 18:59 Intake Total 603.504 217.004 48 Output Total 170 55 325 Balance 433.504 162.004 -277 Weight 167.285 kg Intake: IV 192 208 48 KVO 0.9 NS 120 130 30 pressure bag 72 78 18 Intake, IV Titration 11.504 9.004 Amount Norepinephrine 32 mg In 9.004 Sodium Chloride 0.9% 218 ml @ 0.03 MCG/KG/MIN 2.63 mls/hr IV .Q24H [facility] Rx#: [id number] Oral 400 Output: Urine 170 55 325 Other: Voiding Method Indwelling Catheter Indwelling Catheter # Bowel Movements 1 ABP, PAP, CO, CI - Last Documented Arterial Blood Pressure 101/42 - Exam GENERAL EXAM: Alert, 78-year-old male, resting in bed, on room air, in no acute distress. EYES: Normal reaction of pupils, equal size. NOSE: Clear with pink turbinates. THROAT: No erythema or exudates. NECK: No masses, no JVD. Right IJ hemodialysis catheter in place. CHEST: No chest wall deformity. LUNGS: Equal air entry with crackles in the right lung base. CVS: S1 and S2 normal with no audible murmur, regular rhythm. ABDOMEN: No hepatosplenomegaly, normal bowel sounds, no guarding or rigidity. SPINE: No scoliosis or deformity SKIN: No rashes CENTRAL NERVOUS SYSTEM: No focal deficits, tone is normal in all 4 extremities. EXTREMITIES: There is no peripheral edema. No clubbing, no cyanosis. Peripheral pulses are intact. - Labs CBC & Chem 7: 07/17/24 05:25 07/17/24 05:25 Labs: Abnormal Lab Results - Last 24 Hours (Table) 07/17/24 07/17/24 Range/Units 05:25 05:25 RBC 2.97 L (4.30-5.90) m/uL Hgb 10.7 L (13.0-17.5) gm/dL Hct 31.2 L (39.0-53.0) % MCV 105.1 H (80.0-100.0) fL MCH 36.0 H (25.0-35.0) pg RDW 18.1 H (11.5-15.5) % Lymphocytes # 0.5 L (1.0-4.8) k/uL Macrocytosis Marked A Sodium 131 L (137-145) mmol/L BUN 103 H* (9-20) mg/dL Creatinine 4.52 H (0.66-1.25) mg/dL Glucose 104 H (74-99) mg/dL Assessment and Plan Plan: Acute on chronic diastolic congestive heart failure with hypotension, requiring pressors however currently off norepinephrine Acute on chronic stage IIIb kidney disease with massive volume overload and initiated on hemodialysis Hyperlipidemia Chronic atrial fibrillation, maintained on anticoagulation with Eliquis Enterococcus faecalis urinary tract infection complete Unasyn. Severe pulmonary hypertension Morbid obesity Gout History of obstructive sleep apnea, not tolerant to CPAP therapy Previous history of WPW and SVT Osteoarthritis Previous history of DVT of lower extremities Glaucoma Plan: Will reduce the dose of metoprolol to 50 mg p.o. twice a day Currently off the norepinephrine, will ask the patient to continue hemodialysis while being monitored in terms of his blood pressure Continue Solu-Cortef, Synthroid, midodrine Hemodialysis Wednesday Could transfer out of the ICU later today if he remains off pressors
[2024-07-17 20:02] LABS: Glucose,Whole Blood 113 mg/dL (70-110)
[2024-07-17] MEDS: METOPROLOL TARTRATE 50 MG TAB PO SCH (20:27)
[2024-07-18] MEDS: LEVOTHYROXINE 100 MCG TAB PO SCH (06:14)
[2024-07-18 06:23] LABS: Glucose,Whole Blood 104 mg/dL (70-110)
[2024-07-18 07:41] LABS: Anisocytosis Slight; HCT 32.2 % (39.0-53.0); HGB 10.3 gm/dL (13.0-17.5); MCH 34.6 pg (25.0-35.0); MCV 108.2 fL (80.0-100.0); Macrocytosis Marked; Mean Platelet Volume 8.1; Platelet Count 194 k/uL (150-450); RBC 2.98 m/uL (4.30-5.90); RDW 17.4 % (11.5-15.5); WBC 8.1 k/uL (3.8-10.6)
[2024-07-18 07:54] LABS: ALT 12 U/L (4-49); AST 27 U/L (17-59); African American GFR (CKD) 17 (>60 ml/min/1.73 sqM); Albumin 2.7 g/dL (3.5-5.0); Alkaline Phosphatase 144 U/L (38-126); Anion Gap 7 mmol/L; Blood Urea Nitrogen 84 mg/dL (9-20); Calcium 8.6 mg/dL (8.4-10.2); Carbon Dioxide 29 mmol/L (22-30); Chloride 97 mmol/L (98-107); Glucose 94 mg/dL (74-99); Non-African American GFR(CKD) 15 (>60 ml/min/1.73 sqM); Potassium 4.9 mmol/L (3.5-5.1); Sodium 133 mmol/L (137-145); Total Bilirubin 2.3 mg/dL (0.2-1.3); Total Protein 5.8 g/dL (6.3-8.2)
--- NOTE | 2024-07-18 08:57 | P.PN ---
Subjective Principal diagnosis: Debility with hypotension. The patient is a 78-year-old white male transferred to the Step down related to hypotension. Now on dialysis. The patient is off IV pressor. the patient is resting comfortably. No headache no shortness of breath he is well aware of his overall debility. He and his have been coping staying independent. Still watching for BP. The patient seems much more comfortable. Objective - Vital Signs Vital signs: Vital Signs Temp 98.2 F 07/18/24 03:40 Pulse 85 07/18/24 03:40 Resp 14 07/18/24 03:40 BP 104/64 07/18/24 03:40 Pulse Ox 95 07/18/24 03:40 FiO2 21 07/17/24 09:05 Intake & Output 07/17/24 07/18/24 07/18/24 18:59 06:59 18:59 Intake Total 888 Output Total 3905 150 Balance -3017 -150 Weight 167.5 kg Intake: IV 148 KVO 0.9 NS 100 pressure bag 48 Oral 240 Hemodialysis 500 Output: Urine 405 150 Hemodialysis 2000 Hemodialysis Net Amount 1500 Other: Voiding Method Indwelling Catheter Indwelling Catheter # Bowel Movements 1 ABP, PAP, CO, CI - Last Documented Arterial Blood Pressure 106/46 - Constitutional General appearance: Present: morbidly obese - EENT Eyes: Absent: abnormal pupil - Neck Neck: Absent: lymphadenopathy - Respiratory Respiratory: bilateral: diminished - Cardiovascular Rhythm: irregularly irregular Heart sounds: normal: S1, S2 Abnormal Heart Sounds: Absent: S3 Gallop - Gastrointestinal General gastrointestinal: Present: soft. Absent: tenderness - Integumentary Integumentary: Absent: cellulitis - Labs CBC & Chem 7: 07/18/24 07:00 07/18/24 07:00 Labs: Abnormal Lab Results - Last 24 Hours (Table) 07/17/24 07/18/24 07/18/24 Range/Units 20:00 07:00 07:00 RBC 2.98 L (4.30-5.90) m/uL Hgb 10.3 L (13.0-17.5) gm/dL Hct 32.2 L (39.0-53.0) % MCV 108.2 H (80.0-100.0) fL RDW 17.4 H (11.5-15.5) % Macrocytosis Marked A Sodium 133 L (137-145) mmol/L Chloride 97 L (98-107) mmol/L BUN 84 H (9-20) mg/dL Creatinine 3.72 H (0.66-1.25) mg/dL POC Glucose (mg/dL) 113 H (70-110) mg/dL Total Bilirubin 2.3 H (0.2-1.3) mg/dL Alkaline Phosphatase 144 H (38-126) U/L Total Protein 5.8 L (6.3-8.2) g/dL Albumin 2.7 L (3.5-5.0) g/dL Assessment and Plan (1) Hypotension Current Visit: Yes Status: Acute Code(s): I95.9 - HYPOTENSION, UNSPECIFIED SNOMED Code(s): 48984142 (2) Left leg cellulitis Current Visit: Yes Status: Acute Code(s): L03.116 - CELLULITIS OF LEFT LOWER LIMB SNOMED Code(s): 98647869106871689 (3) Weakness Current Visit: Yes Status: Acute Code(s): R53.1 - WEAKNESS SNOMED Code(s): 41936317 Plan: Acute on chronic renal failure. Hypotension. Much improved over the last week. Will continue to follow with multiple consultants. Check CBC and CMP in a.m.
[2024-07-18 11:33] LABS: Glucose,Whole Blood 110 mg/dL (70-110)
--- NOTE | 2024-07-18 14:51 | P.PN ---
Subjective Progress Note Date: 07/18/24 This is a 78-year-old male patient with massive fluid overload, ongoing difficulty with chronic kidney failure as the patient has developed an acute on top of chronic renal disease with extensive third spacing and anasarca and possibly a component of cardiorenal syndrome. 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 Baseline creatinine is around 1.5 back in March 2024. The patient presented to us with volume overload, acute on top of chronic diastolic heart failure with moderate mitral regurgitation. Patient also was diagnosed having an Enterococcus urinary tract infection currently on IV Unasyn. Initial rate, attempts to diurese this patient with Lasix have failed due to ongoing hypotension. The patient was started on midodrine 10 mg p.o. 4 times daily. Subsequently, I was asked to transfer this patient to the ICU for hemodynamic support and pressor use as the patient was going to be started on Lasix 5 mg infusion in combination with Za roxolyn 5 mg p.o. daily. Based on that, the patient was transferred to the ICU. Lasix s drip was started and the patient will be started also on norepinephrine for blood pressure support. He is currently awake and alert. Following commands. He is on oxygen at 2 L/min nasal cannula. His chest x-ray showing small bilateral pleural effusion and this is less x-ray that was done on 06/26/2024. Patient was evaluated today on 07/03/24, remains in the ICU, he was seen by Dr. Jp nance on consultation yesterday, he was placed on Lasix drip at 5 mg/h, making about 50 to 75 cc of urine per hour. Blood pressure is marginal he is requiring norepinephrine at 0.06 mcg/kg/min. Patient is not complaining of shortness of breath, he is on 2 L nasal cannula, he seems to be extremely swollen edematous and has anasarca. Nonetheless the patient is feeling better compared to yesterday. And seemsto be responding to the Lasix drip. WBC count is 8.4 hemoglobin 12.2 electrolytes are normal BUN is 92 creatinine 3.53., Relatively unchanged compared to yesterday.Patient's baseline creatinine on 06/26 was 2.19. Patient is receiving Unasyn for what seems to be acute urinary tract infection secondary to Enterococcus. Faecalis. Patient was evaluated today on 07/04/2024, remains in the ICU remains on Lasix drip and dose has been increased to 10 mg/h. Patient is requiring norepinephrine at 0.07 mcg/kg/min he is also on IV fluid at KVO. Antibiotics cooley he is on Unasyn for his UTI, and is also on Eliquis. Patient tells me that he is feeling better, breathing easier, and he continues to respond to Lasix but urine output did not improve much by increasing the dose of Lasix., WBC is 8.4 hemoglobin 11.9 basic metabolic profile is normal bicarb is 27 BUN is 95 creatinine 3.77 Gradually rising. His renal status is being addressed and followed by nephrology chest x-ray showed evidence of cardiomegaly and pulmonary vascular congestion. Patient remains on 2 L nasal cannula, and he is O2 satura tion is 97%. Blood pressure is marginal, his mean arterial pressure is 68, patient is requiring norepinephrine Patient today on 07/05/2024, patient is not doing too great today. Patient is getting worse, he is developing worsening hypotension and requiring now higher doses of norepinephrine and higher doses of vasopressin. Patient required lines including central line and arterial line, and these were done today. Urine output remains about 35 to 40 cc/h, in spite of Lasix at 10 mg/h. His renal functioning is getting worse creatinine is up to 3.9 today. Again the patient is requiring norepinephrine and we have added vasopressin, patient seems to be developing acute kidney injury with ATN and hypotension as well as cardiorenal syndrome. Nephrology is considering to proceed with renal replacement therapy since the patient continues to remain volume overloaded. And urine output is no t that great. His creatinine baseline in March was 1.5. Looking at his echocardiogram, patient has chronic diastolic congestive heart failure with moderate mitral regurgitation, and severe pulmonary hypertension. Patient is also receiving antibiotics for his right lower extremity cellulitis, in addition he has Enterococcus urinary tract infection addressed by infectious disease on the case.WBC count is 7.1 hemoglobin is 11.1 basic metabolic profile is normal bicarb is 23 BUN is 101 creatinine 3.94. Chest x-ray is showing worsening pleural effusion and pulmonary edema Reevaluate today on 07/06/2024, patient remains in the ICU, still on pressors requiring norepinephrine at 0.24 mcg/kg/min, patient did not require vasopressin yesterday. Still on midodrine. A right femoral dialysis catheter was placed yesterday by vascular surgery. Patient is supposed to be started on hemodialysis today. Clinically today, he seems to be feeling better compared to yesterday.Denies any cough wheezing or shortness of breath, patient feels generally weak. WBC count is 7.9 hemoglobin 11.8 electrolytes are normal BUN is 102 creatinine 4.31 patient remains on Lasix drip at 10 mg/h, and the plan is to hemodialyze today Patient was evaluated today on 07/07/2024, patient remains in the ICU on 2 L nasal cannula patient underwent hemodialysis yesterday and 2 L were removed. His BUN is 90 creatinine 4.13. Remains on Lasix drip at 10 mg/h he is still requiring norepinephrine at 0.21 mcg/kg/min, blood pressure remains marginal at best. Patient is still covered with Unasyn still on Eliquis, patient was placed on Lopressor at 100 mg p.o. or twice daily by cardiology his echocardiogram showed significant valvular heart disease, pulmonary hypertension, ejection fraction is 50 to 55%. Patient is complaining today of some bloating and abdominal discomfort, but no nausea no vomiting. No significant pain. WBC count today is 8.2 hemoglobin 11.3 electrolytes are normal BUN is 90 creatinine 4.13, chest x-ray showed mild pulmonary vascular congestion Patient was evaluated today on 07/08/2024, patient remains in the ICU still requiring pressors, he is on norepinephrine at 0.22 mcg/kg/min blood pressure remains marginal, patient is intermittently getting hemodialysis, remains on multiple cardiac meds but he is off Lasix drip at this point. Pulmonary cooley he is on 2 L nasal cannula, does not seem to be in distress. Chest x-ray today showed minimal right basilar atelectasis, no evidence of pulmonary edema. Apparently the patient did not tolerate hemodialysis treatment yesterday well, because of low blood pressure. WBC count is 9.3 hemoglobin 11.4 basic metabolic profile is normal BUN is 82 creatinine 3.49 Patient was seen today on 07/09/2024, patient remains in the ICU, remains on no repinephrine and he is intermittently on hemodialysis. Off Lasix drip. On 3 L nasal cannula, on norepinephrine 0.13 mcg/kg/min on midodrine on IV fluid at KVO. Patient is also on Eliquis. Urine output is about 25 to 40 cc/h. His CVP is 15 patient had 2 L removed by hemodialysis on 07/08 and his CVP today is ranging between 12-15. Pulmonary cooley is not in distress, however his blood pressure remains extremely low requiring pressors hence I cannot move the patient out of the ICU as long as he is on pressors The patient is seen today July 10, 2024 in follow-up in the intensive care unit. Awake and alert in no acute distress. Currently resting fairly comfortably in bed. He is maintaining good O2 saturations in the 90s on 2 L/min per nasal cannula. He is still requiring norepinephrine at 20 mcg/min. Normal saline at KVO. Urine culture was positive for Enterococcus faecalis. Blood cultures revealed no growth. White count 10.1. Hemoglobin 11.4. Sodium 133. Potassium 4.3. Bicarb 26. BUN 83. Creatinine 3.79. Glucose 104. He is continued on Lasix 60 mg every 12 hours. Anticoagulated with Eliquis. Remains on midodrine 10 mg 4 times daily. The patient is seen today July 11, 2024 in follow-up in the intensive care unit. He is currently resting in bed. Awake and alert in no acute distress. Currently undergoing hemodialysis. He is still requiring norepinephrine at 0.17 mcg/kg/min. He has normal saline at KVO. He is maintaining O2 saturation in the 90s on 2 L/min per nasal cannula. His TSH did come back abnormal at 6.87, cortisol level was 8.8. He will be initiated on Synthroid 75 mcg IV daily and Solu-Cortef 50 mg IV every 6 hours. Continued on midodrine. He remains on Lasix 60 mg IV every 12 hours. Anticoagulated with Eliquis. White count 8.4. Hemoglobin 11.1. Platelets 169. Sodium 133. Potassium 4.2. Bicarb 27. BUN 67. Creatinine 3.30. Glucose 102. The patient is seen today July 12, 2024 in follow-up in the intensive care unit. He is awake and alert in no acute distress. Currently receiving hemodialysis with another 2 L planned to be removed. He is continued on norepinephrine down to 17 mcg/min. He had been initiated on Synthroid and Solu- Cortef with improvement in his blood pressure. White count 7.3. Hemoglobin 10.8 . Platelets 151. Sodium 133. Potassium 4.2. Bicarb 27. BUN 66. Creatinine 3.31. Glucose 130. He remains on IV diuretics. Anticoagulated with Eliquis. Currently in a -3.7 L balance. The patient is seen today July 13, 2024 in follow-up in the intensive care unit. He is resting comfortably in bed. Awake and alert in no acute distress. Maintaining O2 saturations in the 90s on 2 L/min per nasal cannula. He has normal saline at 10 mL/h. He is still requiring norepinephrine at 14 mcg/min. He is continued on Synthroid and Solu-Cortef. White count 12.4. Hemoglobin 11.5. Platelets 236. Sodium 132. Potassium 4.0. Bicarb 28. BUN 65. Creatinine 2.97. Glucose 116. He remains on Lasix 60 mg IV every 12 hours. Currently in a positive balance. Plan is for hemodialysis again tomorrow. The patient is seen today July 14, 2024 in follow-up in the intensive care unit. He is currently awake and alert in no acute distress resting comfortably in bed. Maintaining good O2 saturations in the 90s on room air. He is currently receiving hemodialysis with a goal of 2 L to be removed today. He is still requiring norepinephrine at 7 mcg/min. He is continued on Lasix 60 mg srinivas ry 12 hours. He remains on Synthroid and Solu-Cortef. Also continued on midodrine. Urine culture was positive for Enterococcus faecalis. Blood cultures revealed no growth. White count 10.2. Hemoglobin 10.6. Platelets 182. Sodium 132. Potassium 4.2. Bicarb 26. BUN 79. Creatinine 3.85. Gl ucose 109. The patient is seen today July 15, 2024 in follow-up in the intensive care unit. He is resting comfortably in bed. Awake and alert in no acute distress. Maintaining good O2 saturations in the 90s on room air. He is still requiring norepinephrine currently at 12 mcg/min. He is continued on Solu-Cortef, Synthroid, midodrine. He remains on IV diuretics per nephrology. He received hemodialysis yesterday with 2 L removed. Chest x-ray revealed chronic changes without evidence of acute pulmonary process. He did have a right internal jugular hemodialysis catheter placed yesterday. Femoral catheter was removed. Urine culture was positive for Enterococcus faecalis. Blood cultures revealed no growth. White count 8.0. Hemoglobin 10.5. Platelets 185. Sodium 132. Potassium 4.2. Bicarb 26. BUN 67. Creatinine 3.46. Glucose 113. The patient is seen today July 16, 2024 in follow-up in the intensive care unit. He is awake and alert in no acute distress. Resting comfortably in bed. Maintaining good O2 saturations in the 90s on room air. His norepinephrine is currently off. He is continued on midodrine. He is anticoagulated with Eliquis. Plan is for hemodialysis tomorrow and to continue a Wednesday schedule. White count 9.4. Hemoglobin 10.5. Platelets 226. Sodium 131. Potassium 4.7. Bicarb 25. BUN 86. Creatinine 4.1. Glucose 114. He remains on a low-salt diet and 1500 cc fluid restriction. IV Lasix discontinued per nephrology. On 07/17/2024, the patient is being seen for a follow-up., Comfortable on room air oxygen. Undergoing hemodialysis. Direct the patient was episodes of hypotension and the patient was encountering during hemodialysis. This morning, he is off pressors and is undergoing dialysis without any major issues. Blood pressure is on the lower side. It is stable for now. He is on no pressors. Urine output is minimal. He remains on metoprolol at a dose of 100 mg twice a day and his rate is under adequate control in terms of atrial fibrillation and the patient remains on anticoagulation with Eliquis 2.5 mg p.o. twice a day. He is also on midodrine 10 mg 4 times daily. White cell count is at 8 with hemoglobin 10.7 and a platelet count of 184. BUN is 103 with a creatinine of 4.5 and a sodium is at 131. Potassium level is at 4.8. He is awake and alert and communicating. No other significant events overnight. Undergoing hemodialysis this morning. On 07/18/2024, the patient is being seen for a follow-up. The patient is doing well. Hemodynamically stable. The patient was able to complete his hemodialysis yesterday. No hypotension. The patient is currently on a telemetry unit and the patient has not required any pressors and the patient remains hemodynamically stable. Lopressor dose has been modified. The patient remains in a controlled atrial fibrillation. BUN is 84 with a creatinine of 3.7. Potassium is at 4.9. Bicarb is at 29. Hemoglobin is at 10.3 with a white cell count of 8.1. Medications remain unchanged. Objective - Vital Signs Vital signs: Vital Signs Temp 98.2 F 07/18/24 09:06 Pulse 88 07/18/24 09:06 Resp 16 07/18/24 09:06 BP 104/61 07/18/24 09:06 Pulse Ox 98 07/18/24 09:06 FiO2 21 07/17/24 09:05 Intake & Output 07/17/24 07/18/24 07/18/24 18:59 06:59 18:59 Intake Total 888 Output Total 3905 150 Balance -3017 -150 Weight 167.5 kg 167.5 kg Intake: IV 148 KVO 0.9 NS 100 pressure bag 48 Oral 240 Hemodialysis 500 Output: Urine 405 150 Hemodialysis 2000 Hemodialysis Net Amount 1500 Other: Voiding Method Indwelling Catheter Indwelling Catheter Indwelling Catheter # Bowel Movements 1 ABP, PAP, CO, CI - Last Documented Arterial Blood Pressure 106/46 - Exam GENERAL EXAM: Alert, 78-year-old male, resting in bed, on room air, in no acute distress. EYES: Normal reaction of pupils, equal size. NOSE: Clear with pink turbinates. THROAT: No erythema or exudates. NECK: No masses, no JVD. Right IJ hemodialysis catheter in place. CHEST: No chest wall deformity. LUNGS: Equal air entry with crackles in the right lung base. CVS: S1 and S2 normal with no audible murmur, regular rhythm. ABDOMEN: No hepatosplenomegaly, normal bowel sounds, no guarding or rigidity. SPINE: No scoliosis or deformity SKIN: No rashes CENTRAL NERVOUS SYSTEM: No focal deficits, tone is normal in all 4 extremities. EXTREMITIES: There is no peripheral edema. No clubbing, no cyanosis. Peripheral pulses are intact. - Labs CBC & Chem 7: 07/18/24 07:00 07/18/24 07:00 Labs: Abnormal Lab Results - Last 24 Hours (Table) 07/17/24 07/18/24 07/18/24 Range/Units 20:00 07:00 07:00 RBC 2.98 L (4.30-5.90) m/uL Hgb 10.3 L (13.0-17.5) gm/dL Hct 32.2 L (39.0-53.0) % MCV 108.2 H (80.0-100.0) fL RDW 17.4 H (11.5-15.5) % Macrocytosis Marked A Sodium 133 L (137-145) mmol/L Chloride 97 L (98-107) mmol/L BUN 84 H (9-20) mg/dL Creatinine 3.72 H (0.66-1.25) mg/dL POC Glucose (mg/dL) 113 H (70-110) mg/dL Total Bilirubin 2.3 H (0.2-1.3) mg/dL Alkaline Phosphatase 144 H (38-126) U/L Total Protein 5.8 L (6.3-8.2) g/dL Albumin 2.7 L (3.5-5.0) g/dL Assessment and Plan Plan: Acute on chronic diastolic congestive heart failure with hypotension, requiring pressors however currently off norepinephrine, and the patient has been off pressors for at least 24 hours and the patient is currently on a telemetry unit. Acute on chronic stage IIIb kidney disease with massive volume overload and initiated on hemodialysis Hyperlipidemia Chronic atrial fibrillation, maintained on anticoagulation with Eliquis Enterococcus faecalis urinary tract infection complete Unasyn. Severe pulmonary hypertension Morbid obesity Gout History of obstructive sleep apnea, not tolerant to CPAP therapy Previous history of WPW and SVT Osteoarthritis Previous history of DVT of lower extremities Glaucoma Plan: Keep the dose of metoprolol to 50 mg p.o. twice a day No hypotension Currently off the norepinephrine, and the patient was able to complete hemodialysis yesterday e Continue Solu-Cortef, Synthroid, midodrine Will stop hydrocortisone as of tomorrow Hemodialysis Wednesday Keep the patient on telemetry unit
--- NOTE | 2024-07-18 16:04 | P.PN ---
Progress Note - Text Preop diagnosis right foot plantar aspect foreign body Postop same piece of glass Procedure right foot plantar aspect was prepped and draped in Prestel manner 1% lidocaine for infiltrated patient had a x-ray of the right foot suggestive of a foreign body the plantar aspect the foot was quite tender 1% lidocaine for infiltrated elliptical small incision was made about half centimeter deepened through skin and fat and found there was a piece of glass which was removed. Wound was irrigated with saline packed with with his extra silver with 2 presided deep culture sent for aerobic and anaerobic dressing applied patient tarted the procedure well plan is to change the dressing every 48 hours
[2024-07-18 16:45] LABS: Glucose,Whole Blood 107 mg/dL (70-110)
--- NOTE | 2024-07-18 17:04 | P.PN ---
Subjective Patient is seen for follow-up for acute kidney injury and chronic kidney disease. Started on hemodialysis on 07/06/2024 due to worsening volume status. Patient has been transferred out of the ICU. Blood pressure remains on the lower side. Maintained on midodrine and Solu- Cortef. Serum cortisol was 8.8 Urine output is low, 0-10 mL per hour. Scheduled for hemodialysis in a.m. No significant complaints today. Bleeding from right IJ permacath has stopped. Objective - Vital Signs Vital signs: Vital Signs Temp 97.5 F L 07/18/24 16:45 Pulse 78 07/18/24 16:45 Resp 20 07/18/24 16:45 BP 108/54 07/18/24 16:45 Pulse Ox 98 07/18/24 16:45 FiO2 21 07/17/24 09:05 Intake & Output 07/17/24 07/18/24 07/18/24 18:59 06:59 18:59 Intake Total 888 Output Total 3905 150 Balance -3017 -150 Weight 167.5 kg 167.5 kg Intake: IV 148 KVO 0.9 NS 100 pressure bag 48 Oral 240 Hemodialysis 500 Output: Urine 405 150 Hemodialysis 2000 Hemodialysis Net Amount 1500 Other: Voiding Method Indwelling Catheter Indwelling Catheter Indwelling Catheter # Bowel Movements 1 ABP, PAP, CO, CI - Last Documented Arterial Blood Pressure 106/46 - Exam Patient is awake, comfortable, no acute distress. Examination of the heart S1 and S2 Examination of the lungs decreased breath sounds at the bases Abdomen is soft obese nontender Examination of lower extremities shows edema 1+ bilaterally, improving FEED WEIGHER exam grossly intact - Labs CBC & Chem 7: 07/18/24 07:00 07/18/24 07:00 Labs: Abnormal Lab Results - Last 24 Hours (Table) 07/17/24 07/18/24 07/18/24 Range/Units 20:00 07:00 07:00 RBC 2.98 L (4.30-5.90) m/uL Hgb 10.3 L (13.0-17.5) gm/dL Hct 32.2 L (39.0-53.0) % MCV 108.2 H (80.0-100.0) fL RDW 17.4 H (11.5-15.5) % Macrocytosis Marked A Sodium 133 L (137-145) mmol/L Chloride 97 L (98-107) mmol/L BUN 84 H (9-20) mg/dL Creatinine 3.72 H (0.66-1.25) mg/dL POC Glucose (mg/dL) 113 H (70-110) mg/dL Total Bilirubin 2.3 H (0.2-1.3) mg/dL Alkaline Phosphatase 144 H (38-126) U/L Total Protein 5.8 L (6.3-8.2) g/dL Albumin 2.7 L (3.5-5.0) g/dL Assessment and Plan Assessment: 1. Acute kidney injury secondary to ATN secondary to hypotension and cardiorenal syndrome. Started on hemodialysis on 07/06/2024 due to worsening renal function and persistent volume overload. Patient did not tolerate initial treatment well due to significant hypotension, however we were able to get 2 L off with dialysis yesterday. No hydronephrosis noted on ultrasound. Trace protein on UA. Patient has right IJ permacath 2. 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 Creatinine 1.5 in March 2024. 3. Acute on chronic diastolic CHF and moderate mitral consultation, severe tricuspid regurgitation and pulmonary hypertension. 4. Volume overload. Maintained on Lasix drip. 5. Right lower extremity cellulitis and Enterococcus UTI on antibiotics. ID following. 6. Hypervolemic hyponatremia. Stable. Plan: hemodialysis on Wednesday schedule Repeat labs in a.m.
[2024-07-18 19:50] LABS: Glucose,Whole Blood 118 mg/dL (70-110)
[2024-07-19 06:16] LABS: Glucose,Whole Blood 100 mg/dL (70-110)
[2024-07-19 06:52] LABS: ALT 13 U/L (4-49); AST 29 U/L (17-59); African American GFR (CKD) 15 (>60 ml/min/1.73 sqM); Alkaline Phosphatase 157 U/L (38-126); Anion Gap 7 mmol/L; Carbon Dioxide 24 mmol/L (22-30); Chloride 100 mmol/L (98-107); Glucose 96 mg/dL (74-99); Non-African American GFR(CKD) 13 (>60 ml/min/1.73 sqM); Potassium 4.9 mmol/L (3.5-5.1); Sodium 131 mmol/L (137-145); Total Bilirubin 2.6 mg/dL (0.2-1.3); Total Protein 6.2 g/dL (6.3-8.2)
[2024-07-19 06:55] LABS: Blood Urea Nitrogen 103 mg/dL (9-20)
[2024-07-19 07:13] LABS: Anisocytosis Slight; HCT 34.2 % (39.0-53.0); HGB 11.3 gm/dL (13.0-17.5); MCH 35.7 pg (25.0-35.0); MCHC 33.1 g/dL (31.0-37.0); MCV 107.9 fL (80.0-100.0); Macrocytosis Marked; Platelet Count 193 k/uL (150-450); RBC 3.17 m/uL (4.30-5.90); RDW 17.8 % (11.5-15.5); WBC 10.3 k/uL (3.8-10.6)
--- NOTE | 2024-07-19 08:45 | P.PN ---
Subjective Principal diagnosis: Debility with hypotension. The patient is a 78-year-old white male transferred to the Step down related to hypotension. Now on dialysis. The patient is off IV pressor. the patient is resting comfortably. No headache no shortness of breath he is well aware of his overall debility. He and his have been coping staying independent. Still watching for BP. The patient seems much more comfortable. Atrial fibrillation on monitor which is stable Objective - Vital Signs Vital signs: Vital Signs Temp 98.3 F 07/19/24 08:00 Pulse 94 07/19/24 08:00 Resp 16 07/19/24 08:00 BP 91/60 07/19/24 08:00 Pulse Ox 97 07/19/24 08:00 FiO2 21 07/17/24 09:05 Intake & Output 07/18/24 07/19/24 07/19/24 18:59 06:59 18:59 Intake Total 240 10 Output Total 200 Balance 40 10 Weight 167.5 kg 167.8 kg Intake: IV 10 Invasive Line 9 10 Oral 240 Output: Urine 200 Other: Voiding Method Indwelling Catheter Indwelling Catheter Indwelling Catheter ABP, PAP, CO, CI - Last Documented Arterial Blood Pressure 106/46 - Constitutional General appearance: Present: morbidly obese - EENT Eyes: Absent: abnormal pupil - Neck Neck: Absent: lymphadenopathy - Respiratory Respiratory: bilateral: diminished - Cardiovascular Rhythm: regular Heart sounds: normal: S1, S2 Abnormal Heart Sounds: Absent: S3 Gallop - Gastrointestinal General gastrointestinal: Present: soft. Absent: tenderness - Integumentary Integumentary: Present: cellulitis - Neurologic Neurologic: Absent: focal deficits - Labs CBC & Chem 7: 07/19/24 06:31 07/19/24 06:31 Labs: Abnormal Lab Results - Last 24 Hours (Table) 07/18/24 07/19/24 07/19/24 Range/Units 19:41 06:31 06:31 RBC 3.17 L (4.30-5.90) m/uL Hgb 11.3 L (13.0-17.5) gm/dL Hct 34.2 L (39.0-53.0) % MCV 107.9 H (80.0-100.0) fL MCH 35.7 H (25.0-35.0) pg RDW 17.8 H (11.5-15.5) % Macrocytosis Marked A Sodium 131 L (137-145) mmol/L BUN 103 H* (9-20) mg/dL Creatinine 4.15 H (0.66-1.25) mg/dL POC Glucose (mg/dL) 118 H (70-110) mg/dL Total Bilirubin 2.6 H (0.2-1.3) mg/dL Alkaline Phosphatase 157 H (38-126) U/L Total Protein 6.2 L (6.3-8.2) g/dL Albumin 3.0 L (3.5-5.0) g/dL Assessment and Plan (1) Hypotension Current Visit: Yes Status: Acute Code(s): I95.9 - HYPOTENSION, UNSPECIFIED SNOMED Code(s): 11177088 (2) Left leg cellulitis Current Visit: Yes Status: Acute Code(s): L03.116 - CELLULITIS OF LEFT LOWER LIMB SNOMED Code(s): 13109257178784566 (3) Weakness Current Visit: Yes Status: Acute Code(s): R53.1 - WEAKNESS SNOMED Code(s): 46481865 Plan: Acute on chronic renal failure. Blood pressure seems to be stabilizing. Much improved over the last week. Will continue to follow with multiple consultants. Check CBC and CMP in a.m.
[2024-07-19 11:42] LABS: Glucose,Whole Blood 139 mg/dL (70-110)
[2024-07-19 20:09] LABS: Glucose,Whole Blood 122 mg/dL (70-110)
--- NOTE | 2024-07-19 21:30 | P.PN ---
Subjective Patient is seen for follow-up for acute kidney injury and chronic kidney disease. Started on hemodialysis on 07/06/2024 due to worsening volume status. Patient has been transferred out of the ICU. Blood pressure remains on the lower side. Maintained on midodrine and Solu- Cortef. Serum cortisol was 8.8 Urine output is low, 0-10 mL per hour. Seen on hemodialysis. No significant complaints today. Bleeding from right IJ permacath has slowed down Objective - Vital Signs Vital signs: Vital Signs Temp 97.8 F 07/19/24 16:00 Pulse 96 07/19/24 16:00 Resp 18 07/19/24 16:00 BP 111/70 07/19/24 16:00 Pulse Ox 98 07/19/24 16:00 FiO2 21 07/17/24 09:05 Intake & Output 07/19/24 07/19/24 07/20/24 06:59 18:59 06:59 Intake Total 2420 Output Total 2400 Balance 20 Weight 167.8 kg Intake: IV 20 Invasive Line 9 20 Hemodialysis 2400 Output: Hemodialysis 400 Hemodialysis Net Amount 1999 Other: Voiding Method Indwelling Catheter Indwelling Catheter ABP, PAP, CO, CI - Last Documented Arterial Blood Pressure 106/46 - Exam Patient is awake, comfortable, no acute distress. Examination of the heart S1 and S2 Examination of the lungs decreased breath sounds at the bases Abdomen is soft obese nontender Examination of lower extremities shows edema 1+ bilaterally, improving [employer] exam grossly intact - Labs CBC & Chem 7: 07/19/24 06:31 07/19/24 06:31 Labs: Abnormal Lab Results - Last 24 Hours (Table) 07/19/24 07/19/24 07/19/24 Range/Units 06:31 06:31 11:40 RBC 3.17 L (4.30-5.90) m/uL Hgb 11.3 L (13.0-17.5) gm/dL Hct 34.2 L (39.0-53.0) % MCV 107.9 H (80.0-100.0) fL MCH 35.7 H (25.0-35.0) pg RDW 17.8 H (11.5-15.5) % Macrocytosis Marked A Sodium 131 L (137-145) mmol/L BUN 103 H* (9-20) mg/dL Creatinine 4.15 H (0.66-1.25) mg/dL POC Glucose (mg/dL) 139 H (70-110) mg/dL Total Bilirubin 2.6 H (0.2-1.3) mg/dL Alkaline Phosphatase 157 H (38-126) U/L Total Protein 6.2 L (6.3-8.2) g/dL Albumin 3.0 L (3.5-5.0) g/dL 07/19/24 Range/Units 20:06 RBC (4.30-5.90) m/uL Hgb (13.0-17.5) gm/dL Hct (39.0-53.0) % MCV (80.0-100.0) fL MCH (25.0-35.0) pg RDW (11.5-15.5) % Macrocytosis Sodium (137-145) mmol/L BUN (9-20) mg/dL Creatinine (0.66-1.25) mg/dL POC Glucose (mg/dL) 122 H (70-110) mg/dL Total Bilirubin (0.2-1.3) mg/dL Alkaline Phosphatase (38-126) U/L Total Protein (6.3-8.2) g/dL Albumin (3.5-5.0) g/dL Assessment and Plan Assessment: 1. Acute kidney injury secondary to ATN secondary to hypotension and cardiorenal syndrome. Started on hemodialysis on 07/06/2024 due to worsening renal function and persistent volume overload. Patient did not tolerate initial treatment well due to significant hypotension, however we were able to get 2 L off with dialysis yesterday. No hydronephrosis noted on ultrasound. Trace protein on UA. Patient has right IJ permacath 2. 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 Creatinine 1.5 in March 2024. 3. Acute on chronic diastolic CHF and moderate mitral consultation, severe tricuspid regurgitation and pulmonary hypertension. 4. Volume overload. Improved with dialysis and ultrafiltration. 5. Right lower extremity cellulitis and Enterococcus UTI on antibiotics. ID following. 6. Hypervolemic hyponatremia. Improved Plan: hemodialysis on Wednesday schedule Repeat labs in a.m.
[2024-07-20 05:47] LABS: Glucose,Whole Blood 95 mg/dL (70-110)
[2024-07-20 07:25] LABS: Anisocytosis Slight; HCT 36.4 % (39.0-53.0); HGB 11.8 gm/dL (13.0-17.5); MCH 35.4 pg (25.0-35.0); MCHC 32.5 g/dL (31.0-37.0); MCV 109.2 fL (80.0-100.0); Macrocytosis Marked; Mean Platelet Volume 7.4; Platelet Count 216 k/uL (150-450); RBC 3.34 m/uL (4.30-5.90); RDW 17.1 % (11.5-15.5); WBC 12.9 k/uL (3.8-10.6)
[2024-07-20 07:38] LABS: ALT 15 U/L (4-49); AST 32 U/L (17-59); African American GFR (CKD) 18 (>60 ml/min/1.73 sqM); Albumin 3.2 g/dL (3.5-5.0); Alkaline Phosphatase 138 U/L (38-126); Anion Gap 9 mmol/L; Blood Urea Nitrogen 89 mg/dL (9-20); Carbon Dioxide 26 mmol/L (22-30); Chloride 97 mmol/L (98-107); Glucose 89 mg/dL (74-99); Non-African American GFR(CKD) 15 (>60 ml/min/1.73 sqM); Potassium 5.1 mmol/L (3.5-5.1); Sodium 132 mmol/L (137-145); Total Bilirubin 2.9 mg/dL (0.2-1.3); Total Protein 6.6 g/dL (6.3-8.2)
--- NOTE | 2024-07-20 08:30 | P.PN ---
Subjective Principal diagnosis: Debility with hypotension. The patient is a 78-year-old white male transferred to the Step down related to hypotension. Now on dialysis. The patient is off IV pressor. the patient is resting comfortably. No headache no shortness of breath he is well aware of his overall debility. He and his have been coping staying independent. Still watching for BP. The patient seems much more comfortable. Atrial fibrillation on monitor which is stable Still quite weak. Objective - Vital Signs Vital signs: Vital Signs Temp 97.6 F 07/20/24 07:34 Pulse 68 07/20/24 07:34 Resp 16 07/20/24 07:34 BP 104/72 07/20/24 07:34 Pulse Ox 95 07/20/24 07:34 FiO2 21 07/17/24 09:05 Intake & Output 07/19/24 07/20/24 07/20/24 18:59 06:59 18:59 Intake Total 2420 20 Output Total 2400 100 Balance 20 -80 Intake: IV 20 20 Invasive Line 9 20 20 Hemodialysis 2400 Output: Urine 100 Hemodialysis 400 Hemodialysis Net Amount 2000 Other: Voiding Method Indwelling Catheter Indwelling Catheter ABP, PAP, CO, CI - Last Documented Arterial Blood Pressure 106/46 - Constitutional General appearance: Present: morbidly obese - EENT Eyes: Absent: abnormal pupil - Neck Neck: Absent: lymphadenopathy - Respiratory Respiratory: bilateral: diminished - Cardiovascular Rhythm: irregularly irregular Heart sounds: normal: S1, S2 Abnormal Heart Sounds: Absent: S3 Gallop - Gastrointestinal General gastrointestinal: Present: soft. Absent: tenderness - Neurologic Neurologic: Absent: focal deficits - Labs CBC & Chem 7: 07/20/24 06:28 07/20/24 06:28 Labs: Abnormal Lab Results - Last 24 Hours (Table) 07/19/24 07/19/24 07/20/24 Range/Units 11:40 20:06 06:28 WBC 12.9 H (3.8-10.6) k/uL RBC 3.34 L (4.30-5.90) m/uL Hgb 11.8 L (13.0-17.5) gm/dL Hct 36.4 L (39.0-53.0) % MCV 109.2 H (80.0-100.0) fL MCH 35.4 H (25.0-35.0) pg RDW 17.1 H (11.5-15.5) % Macrocytosis Marked A Sodium (137-145) mmol/L Chloride (98-107) mmol/L BUN (9-20) mg/dL Creatinine (0.66-1.25) mg/dL POC Glucose (mg/dL) 139 H 122 H (70-110) mg/dL Total Bilirubin (0.2-1.3) mg/dL Alkaline Phosphatase (38-126) U/L Albumin (3.5-5.0) g/dL 07/20/24 Range/Units 06:28 WBC (3.8-10.6) k/uL RBC (4.30-5.90) m/uL Hgb (13.0-17.5) gm/dL Hct (39.0-53.0) % MCV (80.0-100.0) fL MCH (25.0-35.0) pg RDW (11.5-15.5) % Macrocytosis Sodium 132 L (137-145) mmol/L Chloride 97 L (98-107) mmol/L BUN 89 H (9-20) mg/dL Creatinine 3.60 H (0.66-1.25) mg/dL POC Glucose (mg/dL) (70-110) mg/dL Total Bilirubin 2.9 H (0.2-1.3) mg/dL Alkaline Phosphatase 138 H (38-126) U/L Albumin 3.2 L (3.5-5.0) g/dL Assessment and Plan (1) Hypotension Current Visit: Yes Status: Acute Code(s): I95.9 - HYPOTENSION, UNSPECIFIED SNOMED Code(s): 45180061 (2) Left leg cellulitis Current Visit: Yes Status: Acute Code(s): L03.116 - CELLULITIS OF LEFT LOWER LIMB SNOMED Code(s): 11212699237446679 (3) Weakness Current Visit: Yes Status: Acute Code(s): R53.1 - WEAKNESS SNOMED Code(s): 49801589 Plan: Acute on chronic renal failure. Blood pressure seems to be stabilizing. Much improved over the last week. Will continue to follow with multiple consultants. Check CBC and CMP in a.m. Increase ambulation and continue dialysis. Transfer to rehab soon.
[2024-07-20 11:58] LABS: Glucose,Whole Blood 106 mg/dL (70-110)
--- NOTE | 2024-07-20 12:53 | P.PN ---
Subjective Patient is seen for follow-up for acute kidney injury and chronic kidney disease. Started on hemodialysis on 07/06/2024 due to worsening volume status. Patient has been transferred out of the ICU. Blood pressure remains on the lower side. Maintained on midodrine and Solu- Cortef. Serum cortisol was 8.8 Urine output is low, 0-10 mL per hour. Bleeding from right IJ permacath has slowed down Objective - Vital Signs Vital signs: Vital Signs Temp 98.2 F 07/20/24 11:13 Pulse 92 07/20/24 11:13 Resp 18 07/20/24 11:13 BP 97/64 07/20/24 11:13 Pulse Ox 96 07/20/24 11:13 FiO2 21 07/17/24 09:05 Intake & Output 07/19/24 07/20/24 07/20/24 18:59 06:59 18:59 Intake Total 2420 20 10 Output Total 2400 100 Balance 20 -80 10 Intake: IV 20 20 10 Invasive Line 9 20 20 10 Hemodialysis 2400 Output: Urine 100 Hemodialysis 400 Hemodialysis Net Amount 2000 Other: Voiding Method Indwelling Catheter Indwelling Catheter Indwelling Catheter ABP, PAP, CO, CI - Last Documented Arterial Blood Pressure 106/46 - Exam Patient is awake, comfortable, no acute distress. Examination of the heart S1 and S2 Examination of the lungs decreased breath sounds at the bases Abdomen is soft obese nontender Examination of lower extremities shows edema 1+ bilaterally, improving [employer] exam grossly intact - Labs CBC & Chem 7: 07/20/24 06:28 07/20/24 06:28 Labs: Abnormal Lab Results - Last 24 Hours (Table) 07/19/24 07/20/24 07/20/24 Range/Units 20:06 06:28 06:28 WBC 12.9 H (3.8-10.6) k/uL RBC 3.34 L (4.30-5.90) m/uL Hgb 11.8 L (13.0-17.5) gm/dL Hct 36.4 L (39.0-53.0) % MCV 109.2 H (80.0-100.0) fL MCH 35.4 H (25.0-35.0) pg RDW 17.1 H (11.5-15.5) % Macrocytosis Marked A Sodium 132 L (137-145) mmol/L Chloride 97 L (98-107) mmol/L BUN 89 H (9-20) mg/dL Creatinine 3.60 H (0.66-1.25) mg/dL POC Glucose (mg/dL) 122 H (70-110) mg/dL Total Bilirubin 2.9 H (0.2-1.3) mg/dL Alkaline Phosphatase 138 H (38-126) U/L Albumin 3.2 L (3.5-5.0) g/dL Assessment and Plan Assessment: 1. Acute kidney injury secondary to ATN secondary to hypotension and cardiorenal syndrome. Started on hemodialysis on 07/06/2024 due to worsening renal function and persistent volume overload. No hydronephrosis noted on ultrasound. Trace protein on UA. Patient has right IJ permacath 2. 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 Creatinine 1.5 in March 2024. 3. Acute on chronic diastolic CHF and moderate mitral consultation, severe tricuspid regurgitation and pulmonary hypertension. 4. Volume overload. Improved with dialysis and ultrafiltration. 5. Right lower extremity cellulitis and Enterococcus UTI on antibiotics. ID following. 6. Hypervolemic hyponatremia. Improved 7. Bleeding at the site of IJ PermCath, improved Plan: hemodialysis on Wednesday schedule DDAVP 1 Repeat labs in a.m.
[2024-07-20] MEDS: DESMOPRESSIN ACETATE 44 MCG in SODIUM CHLORIDE 0.9% 50 ML IVPB ONE (13:42)
[2024-07-20 16:49] LABS: Glucose,Whole Blood 129 mg/dL (70-110)
--- NOTE | 2024-07-20 17:46 | P.PN ---
Subjective Progress Note Date: 07/20/24 This is a 78-year-old male patient with massive fluid overload, ongoing difficulty with chronic kidney failure as the patient has developed an acute on top of chronic renal disease with extensive third spacing and anasarca and possibly a component of cardiorenal syndrome. 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 Baseline creatinine is around 1.5 back in March 2024. The patient presented to us with volume overload, acute on top of chronic diastolic heart failure with moderate mitral regurgitation. Patient also was diagnosed having an Enterococcus urinary tract infection currently on IV Unasyn. Initial rate, attempts to diurese this patient with Lasix have failed due to ongoing hypotension. The patient was started on midodrine 10 mg p.o. 4 times daily. Subsequently, I was asked to transfer this patient to the ICU for hemodynamic support and pressor use as the patient was going to be started on Lasix 5 mg infusion in combination with Za roxolyn 5 mg p.o. daily. Based on that, the patient was transferred to the ICU. Lasix s drip was started and the patient will be started also on norepinephrine for blood pressure support. He is currently awake and alert. Following commands. He is on oxygen at 2 L/min nasal cannula. His chest x-ray showing small bilateral pleural effusion and this is less x-ray that was done on 06/26/2024. Patient was evaluated today on 07/03/24, remains in the ICU, he was seen by Dr. Jp nance on consultation yesterday, he was placed on Lasix drip at 5 mg/h, making about 50 to 75 cc of urine per hour. Blood pressure is marginal he is requiring norepinephrine at 0.06 mcg/kg/min. Patient is not complaining of shortness of breath, he is on 2 L nasal cannula, he seems to be extremely swollen edematous and has anasarca. Nonetheless the patient is feeling better compared to yesterday. And seemsto be responding to the Lasix drip. WBC count is 8.4 hemoglobin 12.2 electrolytes are normal BUN is 92 creatinine 3.53., Relatively unchanged compared to yesterday.Patient's baseline creatinine on 06/26 was 2.19. Patient is receiving Unasyn for what seems to be acute urinary tract infection secondary to Enterococcus. Faecalis. Patient was evaluated today on 07/04/2024, remains in the ICU remains on Lasix drip and dose has been increased to 10 mg/h. Patient is requiring norepinephrine at 0.07 mcg/kg/min he is also on IV fluid at KVO. Antibiotics cooley he is on Unasyn for his UTI, and is also on Eliquis. Patient tells me that he is feeling better, breathing easier, and he continues to respond to Lasix but urine output did not improve much by increasing the dose of Lasix., WBC is 8.4 hemoglobin 11.9 basic metabolic profile is normal bicarb is 27 BUN is 95 creatinine 3.77 Gradually rising. His renal status is being addressed and followed by nephrology chest x-ray showed evidence of cardiomegaly and pulmonary vascular congestion. Patient remains on 2 L nasal cannula, and he is O2 satura tion is 97%. Blood pressure is marginal, his mean arterial pressure is 68, patient is requiring norepinephrine Patient today on 07/05/2024, patient is not doing too great today. Patient is getting worse, he is developing worsening hypotension and requiring now higher doses of norepinephrine and higher doses of vasopressin. Patient required lines including central line and arterial line, and these were done today. Urine output remains about 35 to 40 cc/h, in spite of Lasix at 10 mg/h. His renal functioning is getting worse creatinine is up to 3.9 today. Again the patient is requiring norepinephrine and we have added vasopressin, patient seems to be developing acute kidney injury with ATN and hypotension as well as cardiorenal syndrome. Nephrology is considering to proceed with renal replacement therapy since the patient continues to remain volume overloaded. And urine output is no t that great. His creatinine baseline in March was 1.5. Looking at his echocardiogram, patient has chronic diastolic congestive heart failure with moderate mitral regurgitation, and severe pulmonary hypertension. Patient is also receiving antibiotics for his right lower extremity cellulitis, in addition he has Enterococcus urinary tract infection addressed by infectious disease on the case.WBC count is 7.1 hemoglobin is 11.1 basic metabolic profile is normal bicarb is 23 BUN is 101 creatinine 3.94. Chest x-ray is showing worsening pleural effusion and pulmonary edema Reevaluate today on 07/06/2024, patient remains in the ICU, still on pressors requiring norepinephrine at 0.24 mcg/kg/min, patient did not require vasopressin yesterday. Still on midodrine. A right femoral dialysis catheter was placed yesterday by vascular surgery. Patient is supposed to be started on hemodialysis today. Clinically today, he seems to be feeling better compared to yesterday.Denies any cough wheezing or shortness of breath, patient feels generally weak. WBC count is 7.9 hemoglobin 11.8 electrolytes are normal BUN is 102 creatinine 4.31 patient remains on Lasix drip at 10 mg/h, and the plan is to hemodialyze today Patient was evaluated today on 07/07/2024, patient remains in the ICU on 2 L nasal cannula patient underwent hemodialysis yesterday and 2 L were removed. His BUN is 90 creatinine 4.13. Remains on Lasix drip at 10 mg/h he is still requiring norepinephrine at 0.21 mcg/kg/min, blood pressure remains marginal at best. Patient is still covered with Unasyn still on Eliquis, patient was placed on Lopressor at 100 mg p.o. or twice daily by cardiology his echocardiogram showed significant valvular heart disease, pulmonary hypertension, ejection fraction is 50 to 55%. Patient is complaining today of some bloating and abdominal discomfort, but no nausea no vomiting. No significant pain. WBC count today is 8.2 hemoglobin 11.3 electrolytes are normal BUN is 90 creatinine 4.13, chest x-ray showed mild pulmonary vascular congestion Patient was evaluated today on 07/08/2024, patient remains in the ICU still requiring pressors, he is on norepinephrine at 0.22 mcg/kg/min blood pressure remains marginal, patient is intermittently getting hemodialysis, remains on multiple cardiac meds but he is off Lasix drip at this point. Pulmonary cooley he is on 2 L nasal cannula, does not seem to be in distress. Chest x-ray today showed minimal right basilar atelectasis, no evidence of pulmonary edema. Apparently the patient did not tolerate hemodialysis treatment yesterday well, because of low blood pressure. WBC count is 9.3 hemoglobin 11.4 basic metabolic profile is normal BUN is 82 creatinine 3.49 Patient was seen today on 07/09/2024, patient remains in the ICU, remains on no repinephrine and he is intermittently on hemodialysis. Off Lasix drip. On 3 L nasal cannula, on norepinephrine 0.13 mcg/kg/min on midodrine on IV fluid at KVO. Patient is also on Eliquis. Urine output is about 25 to 40 cc/h. His CVP is 15 patient had 2 L removed by hemodialysis on 07/08 and his CVP today is ranging between 12-15. Pulmonary cooley is not in distress, however his blood pressure remains extremely low requiring pressors hence I cannot move the patient out of the ICU as long as he is on pressors The patient is seen today July 10, 2024 in follow-up in the intensive care unit. Awake and alert in no acute distress. Currently resting fairly comfortably in bed. He is maintaining good O2 saturations in the 90s on 2 L/min per nasal cannula. He is still requiring norepinephrine at 20 mcg/min. Normal saline at KVO. Urine culture was positive for Enterococcus faecalis. Blood cultures revealed no growth. White count 10.1. Hemoglobin 11.4. Sodium 133. Potassium 4.3. Bicarb 26. BUN 83. Creatinine 3.79. Glucose 104. He is continued on Lasix 60 mg every 12 hours. Anticoagulated with Eliquis. Remains on midodrine 10 mg 4 times daily. The patient is seen today July 11, 2024 in follow-up in the intensive care unit. He is currently resting in bed. Awake and alert in no acute distress. Currently undergoing hemodialysis. He is still requiring norepinephrine at 0.17 mcg/kg/min. He has normal saline at KVO. He is maintaining O2 saturation in the 90s on 2 L/min per nasal cannula. His TSH did come back abnormal at 6.87, cortisol level was 8.8. He will be initiated on Synthroid 75 mcg IV daily and Solu-Cortef 50 mg IV every 6 hours. Continued on midodrine. He remains on Lasix 60 mg IV every 12 hours. Anticoagulated with Eliquis. White count 8.4. Hemoglobin 11.1. Platelets 169. Sodium 133. Potassium 4.2. Bicarb 27. BUN 67. Creatinine 3.30. Glucose 102. The patient is seen today July 12, 2024 in follow-up in the intensive care unit. He is awake and alert in no acute distress. Currently receiving hemodialysis with another 2 L planned to be removed. He is continued on norepinephrine down to 17 mcg/min. He had been initiated on Synthroid and Solu- Cortef with improvement in his blood pressure. White count 7.3. Hemoglobin 10.8 . Platelets 151. Sodium 133. Potassium 4.2. Bicarb 27. BUN 66. Creatinine 3.31. Glucose 130. He remains on IV diuretics. Anticoagulated with Eliquis. Currently in a -3.7 L balance. The patient is seen today July 13, 2024 in follow-up in the intensive care unit. He is resting comfortably in bed. Awake and alert in no acute distress. Maintaining O2 saturations in the 90s on 2 L/min per nasal cannula. He has normal saline at 10 mL/h. He is still requiring norepinephrine at 14 mcg/min. He is continued on Synthroid and Solu-Cortef. White count 12.4. Hemoglobin 11.5. Platelets 236. Sodium 132. Potassium 4.0. Bicarb 28. BUN 65. Creatinine 2.97. Glucose 116. He remains on Lasix 60 mg IV every 12 hours. Currently in a positive balance. Plan is for hemodialysis again tomorrow. The patient is seen today July 14, 2024 in follow-up in the intensive care unit. He is currently awake and alert in no acute distress resting comfortably in bed. Maintaining good O2 saturations in the 90s on room air. He is currently receiving hemodialysis with a goal of 2 L to be removed today. He is still requiring norepinephrine at 7 mcg/min. He is continued on Lasix 60 mg srinivas ry 12 hours. He remains on Synthroid and Solu-Cortef. Also continued on midodrine. Urine culture was positive for Enterococcus faecalis. Blood cultures revealed no growth. White count 10.2. Hemoglobin 10.6. Platelets 182. Sodium 132. Potassium 4.2. Bicarb 26. BUN 79. Creatinine 3.85. Gl ucose 109. The patient is seen today July 15, 2024 in follow-up in the intensive care unit. He is resting comfortably in bed. Awake and alert in no acute distress. Maintaining good O2 saturations in the 90s on room air. He is still requiring norepinephrine currently at 12 mcg/min. He is continued on Solu-Cortef, Synthroid, midodrine. He remains on IV diuretics per nephrology. He received hemodialysis yesterday with 2 L removed. Chest x-ray revealed chronic changes without evidence of acute pulmonary process. He did have a right internal jugular hemodialysis catheter placed yesterday. Femoral catheter was removed. Urine culture was positive for Enterococcus faecalis. Blood cultures revealed no growth. White count 8.0. Hemoglobin 10.5. Platelets 185. Sodium 132. Potassium 4.2. Bicarb 26. BUN 67. Creatinine 3.46. Glucose 113. The patient is seen today July 16, 2024 in follow-up in the intensive care unit. He is awake and alert in no acute distress. Resting comfortably in bed. Maintaining good O2 saturations in the 90s on room air. His norepinephrine is currently off. He is continued on midodrine. He is anticoagulated with Eliquis. Plan is for hemodialysis tomorrow and to continue a Wednesday schedule. White count 9.4. Hemoglobin 10.5. Platelets 226. Sodium 131. Potassium 4.7. Bicarb 25. BUN 86. Creatinine 4.1. Glucose 114. He remains on a low-salt diet and 1500 cc fluid restriction. IV Lasix discontinued per nephrology. On 07/17/2024, the patient is being seen for a follow-up., Comfortable on room air oxygen. Undergoing hemodialysis. Direct the patient was episodes of hypotension and the patient was encountering during hemodialysis. This morning, he is off pressors and is undergoing dialysis without any major issues. Blood pressure is on the lower side. It is stable for now. He is on no pressors. Urine output is minimal. He remains on metoprolol at a dose of 100 mg twice a day and his rate is under adequate control in terms of atrial fibrillation and the patient remains on anticoagulation with Eliquis 2.5 mg p.o. twice a day. He is also on midodrine 10 mg 4 times daily. White cell count is at 8 with hemoglobin 10.7 and a platelet count of 184. BUN is 103 with a creatinine of 4.5 and a sodium is at 131. Potassium level is at 4.8. He is awake and alert and communicating. No other significant events overnight. Undergoing hemodialysis this morning. On 07/18/2024, the patient is being seen for a follow-up. The patient is doing well. Hemodynamically stable. The patient was able to complete his hemodialysis yesterday. No hypotension. The patient is currently on a telemetry unit and the patient has not required any pressors and the patient remains hemodynamically stable. Lopressor dose has been modified. The patient remains in a controlled atrial fibrillation. BUN is 84 with a creatinine of 3.7. Potassium is at 4.9. Bicarb is at 29. Hemoglobin is at 10.3 with a white cell count of 8.1. Medications remain unchanged. On 07/20/2024, the patient is being seen for a follow-up. The patient is doing well. No new complaints for now. Last hemodialysis session was yesterday and this was completed without any complications. The patient's A-fib remains under adequate control for now. No active bleeding from the right IJ permacath site. Urine output remains low. He remains on midodrine. He remains on Cortef this will be discontinued. Labs from today shows a white cell count of 12.9, hemoglobin 11.8 and a platelet count of 216. BUN is 89 with a creatinine of 3.6 and a sodium levels at 132. Objective - Vital Signs Vital signs: Vital Signs Temp 97.6 F 07/20/24 07:34 Pulse 68 07/20/24 07:34 Resp 16 07/20/24 07:34 BP 104/72 07/20/24 07:34 Pulse Ox 95 07/20/24 07:34 FiO2 21 07/17/24 09:05 Intake & Output 07/19/24 07/20/24 07/20/24 18:59 06:59 18:59 Intake Total 2420 20 10 Output Total 2400 100 Balance 20 -80 10 Intake: IV 20 20 10 Invasive Line 9 20 20 10 Hemodialysis 2400 Output: Urine 100 Hemodialysis 400 Hemodialysis Net Amount 2000 Other: Voiding Method Indwelling Catheter Indwelling Catheter Indwelling Catheter ABP, PAP, CO, CI - Last Documented Arterial Blood Pressure 106/46 - Exam GENERAL EXAM: Alert, 78-year-old male, resting in bed, on room air, in no acute distress. EYES: Normal reaction of pupils, equal size. NOSE: Clear with pink turbinates. THROAT: No erythema or exudates. NECK: No masses, no JVD. Right IJ hemodialysis catheter in place. CHEST: No chest wall deformity. LUNGS: Equal air entry with crackles in the right lung base. CVS: S1 and S2 normal with no audible murmur, regular rhythm. ABDOMEN: No hepatosplenomegaly, normal bowel sounds, no guarding or rigidity. SPINE: No scoliosis or deformity SKIN: No rashes CENTRAL NERVOUS SYSTEM: No focal deficits, tone is normal in all 4 extremities. EXTREMITIES: There is no peripheral edema. No clubbing, no cyanosis. Peripheral pulses are intact. - Labs CBC & Chem 7: 07/20/24 06:28 07/20/24 06:28 Labs: Abnormal Lab Results - Last 24 Hours (Table) 07/19/24 07/19/24 07/20/24 Range/Units 11:40 20:06 06:28 WBC 12.9 H (3.8-10.6) k/uL RBC 3.34 L (4.30-5.90) m/uL Hgb 11.8 L (13.0-17.5) gm/dL Hct 36.4 L (39.0-53.0) % MCV 109.2 H (80.0-100.0) fL MCH 35.4 H (25.0-35.0) pg RDW 17.1 H (11.5-15.5) % Macrocytosis Marked A Sodium (137-145) mmol/L Chloride (98-107) mmol/L BUN (9-20) mg/dL Creatinine (0.66-1.25) mg/dL POC Glucose (mg/dL) 139 H 122 H (70-110) mg/dL Total Bilirubin (0.2-1.3) mg/dL Alkaline Phosphatase (38-126) U/L Albumin (3.5-5.0) g/dL 07/20/24 Range/Units 06:28 WBC (3.8-10.6) k/uL RBC (4.30-5.90) m/uL Hgb (13.0-17.5) gm/dL Hct (39.0-53.0) % MCV (80.0-100.0) fL MCH (25.0-35.0) pg RDW (11.5-15.5) % Macrocytosis Sodium 132 L (137-145) mmol/L Chloride 97 L (98-107) mmol/L BUN 89 H (9-20) mg/dL Creatinine 3.60 H (0.66-1.25) mg/dL POC Glucose (mg/dL) (70-110) mg/dL Total Bilirubin 2.9 H (0.2-1.3) mg/dL Alkaline Phosphatase 138 H (38-126) U/L Albumin 3.2 L (3.5-5.0) g/dL Assessment and Plan Plan: Acute on chronic diastolic congestive heart failure with hypotension, requiring pressors however currently off norepinephrine, and the patient has been off pressors for at least 24 hours and the patient is currently on a telemetry unit. Acute on chronic stage IIIb kidney disease with massive volume overload and initiated on hemodialysis Hyperlipidemia Chronic atrial fibrillation, maintained on anticoagulation with Eliquis Enterococcus faecalis urinary tract infection complete Unasyn. Severe pulmonary hypertension Morbid obesity Gout History of obstructive sleep apnea, not tolerant to CPAP therapy Previous history of WPW and SVT Osteoarthritis Previous history of DVT of lower extremities Glaucoma Plan: Keep the dose of metoprolol to 50 mg p.o. twice a day No hypotension Discontinue the Cortef Currently off the norepinephrine, and the patient was able to complete hemodialysis yesterday e Continue Synthroid Continue midodrine Nephrology on the case and last hemodialysis session was on 07/19/2024 Hemodialysis Wednesday Keep the patient on telemetry unit
[2024-07-20 20:29] LABS: Glucose,Whole Blood 113 mg/dL (70-110)
[2024-07-21 06:13] LABS: Glucose,Whole Blood 101 mg/dL (70-110)
[2024-07-21 06:58] LABS: Anisocytosis Slight; HCT 33.5 % (39.0-53.0); HGB 11.3 gm/dL (13.0-17.5); MCH 35.9 pg (25.0-35.0); MCHC 33.7 g/dL (31.0-37.0); MCV 106.5 fL (80.0-100.0); Macrocytosis Marked; Mean Platelet Volume 8.5; Platelet Count 140 k/uL (150-450); RBC 3.15 m/uL (4.30-5.90); RDW 17.4 % (11.5-15.5); WBC 9.4 k/uL (3.8-10.6)
[2024-07-21 07:19] LABS: ALT 14 U/L (4-49); AST 25 U/L (17-59); African American GFR (CKD) 14 (>60 ml/min/1.73 sqM); Alkaline Phosphatase 140 U/L (38-126); Anion Gap 5 mmol/L; Blood Urea Nitrogen 99 mg/dL (9-20); Calcium 8.7 mg/dL (8.4-10.2); Carbon Dioxide 29 mmol/L (22-30); Chloride 98 mmol/L (98-107); Glucose 98 mg/dL (74-99); Non-African American GFR(CKD) 12 (>60 ml/min/1.73 sqM); Potassium 5.6 mmol/L (3.5-5.1); Sodium 132 mmol/L (137-145); Total Bilirubin 2.9 mg/dL (0.2-1.3); Total Protein 6.2 g/dL (6.3-8.2)
--- NOTE | 2024-07-21 08:42 | P.DS ---
Providers Date of admission: 06/26/24 17:50 Attending physician: Luis Fernando Mendes Consults: 06/26/24 15:48 Consult Physician Routine Consulting Provider: Naga Deleon Consult Reason/Comments: chf Do you want consulting provider notified?: Yes 06/26/24 15:49 Consult Physician Routine Consulting Provider: Yassine Sherman Consult Reason/Comments: cellulitis Do you want consulting provider notified?: Yes 06/30/24 11:14 Consult Physician Urgent Consulting Provider: Colby Pastrana Consult Reason/Comments: acute kidney inj Do you want consulting provider notified?: Yes 06/30/24 19:08 Consult Physician Stat Consulting Provider: Karthikeyan Ny Consult Reason/Comments: retention Do you want consulting provider notified?: Yes 07/02/24 15:31 Consult Physician Stat Consulting Provider: Luis Alberto Jc Consult Reason/Comments: HOTN/ICU managment Do you want consulting provider notified?: Already Contacted 07/05/24 12:02 Consult Physician Stat Consulting Provider: Barrington Mohan Consult Reason/Comments: HD catheter Do you want consulting provider notified?: Yes Primary care physician: Stated None - Discharge Diagnosis(es) (1) Hypotension Current Visit: Yes Status: Acute (2) Left leg cellulitis Current Visit: Yes Status: Acute (3) Weakness Current Visit: Yes Status: Acute Hospital Course: The patient is a 78 yo white male admitted for acute renal failure. Hypotension occurred which required long stay in the ICU. Dialysis was required and he will need this concurrently. Due to his debility, he will transferred to ECF. Guarded prognosis due to his multiple comorbidity. He will need PT/OT and then hopeully transferred to assisted living. Dialysis is instituted and he will be transferred once cleared by consultanting teams. Diagnoses included morbid obes ity, CRF, atrial fibrillation, DM, VANESSA and immobility Patient Condition at Discharge: Fair Plan - Discharge Summary Discharge Rx Participant: No New Discharge Prescriptions: New Apixaban [Eliquis] 5 mg PO BID #60 tab Citalopram Hydrobromide [CeleXA] 10 mg PO DAILY tab bisacodyL [Dulcolax] 10 mg PO DAILY PRN #30 tab PRN Reason: Constipation HYDROcodone/APAP 5-325MG [[place] 5-325] 1 each PO Q6HR PRN #120 tab PRN Reason: Pain Levothyroxine Sodium [Synthroid] 100 mcg PO DAILY@0630 #30 tab Sodium Chloride 0.65% Nasal [Deep Sea (Saline)] 2 spray NASAL QID PRN #1 ml PRN Reason: Dry Nasal Passages Metoprolol Tartrate [Lopressor] 50 mg PO BID #60 tab polyethylene glycoL 3350 [Miralax] 17 gm PO DAILY PRN #30 packet PRN Reason: Constipation Midodrine [ProAmatine] 10 mg PO QID #120 tab Pantoprazole [Protonix] 40 mg PO AC-BRKFST #30 tab Sevelamer [Renvela] 800 mg PO BID #60 tab Acetaminophen Tab [Tylenol] 650 mg PO Q6HR PRN tab PRN Reason: Fever And/ Or Pain Continue Probenecid 500 mg PO BID Latanoprost [Latanoprost 0.005%] 1 drop RIGHT EYE HS Cholecalciferol (Vitamin D3) [Vitamin D3 (50 Mcg = 2000 Iu)] 50 mcg PO DAILY Colchicine 0.6 mg PO BID Discontinued Warfarin [Coumadin] 5 mg PO DAILY Furosemide [Lasix] 40 mg PO BID@0900,1500 metOLazone [Zaroxolyn] 2.5 mg PO Q48H Metoprolol Tartrate [Lopressor] 200 mg PO BID Citalopram Hydrobromide [CeleXA] 10 mg PO DAILY Discharge Medication List Probenecid 500 mg PO BID 07/09/15 [History] Cholecalciferol (Vitamin D3) [Vitamin D3 (50 Mcg = 2000 Iu)] 50 mcg PO DAILY 06/26/24 [History] Colchicine 0.6 mg PO BID 06/26/24 [History] Latanoprost [Latanoprost 0.005%] 1 drop RIGHT EYE HS 06/26/24 [History] Apixaban [Eliquis] 5 mg PO BID #60 tab 06/27/24 [Rx] Acetaminophen Tab [Tylenol] 650 mg PO Q6HR PRN tab 07/21/24 [Rx] Citalopram Hydrobromide [CeleXA] 10 mg PO DAILY tab 07/21/24 [Rx] HYDROcodone/APAP 5-325MG [[place] 5-325] 1 each PO Q6HR PRN #120 tab 07/21/24 [Rx] Levothyroxine Sodium [Synthroid] 100 mcg PO DAILY@0630 #30 tab 07/21/24 [Rx] Metoprolol Tartrate [Lopressor] 50 mg PO BID #60 tab 07/21/24 [Rx] Midodrine [ProAmatine] 10 mg PO QID #120 tab 07/21/24 [Rx] Pantoprazole [Protonix] 40 mg PO AC-BRKFST #30 tab 07/21/24 [Rx] Sevelamer [Renvela] 800 mg PO BID #60 tab 07/21/24 [Rx] Sodium Chloride 0.65% Nasal [Deep Sea (Saline)] 2 spray NASAL QID PRN #1 ml 07/21/24 [Rx] bisacodyL [Dulcolax] 10 mg PO DAILY PRN #30 tab 07/21/24 [Rx] polyethylene glycoL 3350 [Miralax] 17 gm PO DAILY PRN #30 packet 07/21/24 [Rx] Follow up Appointment(s)/Referral(s): Dialysis,[facility] [NON-STAFF] - (MWF at 5:15 AM) [facility] [NON-STAFF] - [facility], [NON-STAFF] - Luis Fernando Mendes MD [STAFF PHYSICIAN] - 1 Week Activity/Diet/Wound Care/Special Instructions: Dialysis Chair Time: [facility] Wednesday, Wednesday and Wednesday at 5:15AM Discharge Disposition: TRANSFER TO SNF/ECF
[2024-07-21] MEDS: APIXABAN 2.5 MG TABLET PO SCH (09:45)
[2024-07-21 11:46] LABS: Glucose,Whole Blood 79 mg/dL (70-110)
--- NOTE | 2024-07-21 13:42 | P.PN ---
Subjective Progress Note Date: 07/21/24 This is a 78-year-old male patient with massive fluid overload, ongoing difficulty with chronic kidney failure as the patient has developed an acute on top of chronic renal disease with extensive third spacing and anasarca and possibly a component of cardiorenal syndrome. 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 Baseline creatinine is around 1.5 back in March 2024. The patient presented to us with volume overload, acute on top of chronic diastolic heart failure with moderate mitral regurgitation. Patient also was diagnosed having an Enterococcus urinary tract infection currently on IV Unasyn. Initial rate, attempts to diurese this patient with Lasix have failed due to ongoing hypotension. The patient was started on midodrine 10 mg p.o. 4 times daily. Subsequently, I was asked to transfer this patient to the ICU for hemodynamic support and pressor use as the patient was going to be started on Lasix 5 mg infusion in combination with Za roxolyn 5 mg p.o. daily. Based on that, the patient was transferred to the ICU. Lasix s drip was started and the patient will be started also on norepinephrine for blood pressure support. He is currently awake and alert. Following commands. He is on oxygen at 2 L/min nasal cannula. His chest x-ray showing small bilateral pleural effusion and this is less x-ray that was done on 06/26/2024. Patient was evaluated today on 07/03/24, remains in the ICU, he was seen by Dr. Jp nance on consultation yesterday, he was placed on Lasix drip at 5 mg/h, making about 50 to 75 cc of urine per hour. Blood pressure is marginal he is requiring norepinephrine at 0.06 mcg/kg/min. Patient is not complaining of shortness of breath, he is on 2 L nasal cannula, he seems to be extremely swollen edematous and has anasarca. Nonetheless the patient is feeling better compared to yesterday. And seemsto be responding to the Lasix drip. WBC count is 8.4 hemoglobin 12.2 electrolytes are normal BUN is 92 creatinine 3.53., Relatively unchanged compared to yesterday.Patient's baseline creatinine on 06/26 was 2.19. Patient is receiving Unasyn for what seems to be acute urinary tract infection secondary to Enterococcus. Faecalis. Patient was evaluated today on 07/04/2024, remains in the ICU remains on Lasix drip and dose has been increased to 10 mg/h. Patient is requiring norepinephrine at 0.07 mcg/kg/min he is also on IV fluid at KVO. Antibiotics cooley he is on Unasyn for his UTI, and is also on Eliquis. Patient tells me that he is feeling better, breathing easier, and he continues to respond to Lasix but urine output did not improve much by increasing the dose of Lasix., WBC is 8.4 hemoglobin 11.9 basic metabolic profile is normal bicarb is 27 BUN is 95 creatinine 3.77 Gradually rising. His renal status is being addressed and followed by nephrology chest x-ray showed evidence of cardiomegaly and pulmonary vascular congestion. Patient remains on 2 L nasal cannula, and he is O2 satura tion is 97%. Blood pressure is marginal, his mean arterial pressure is 68, patient is requiring norepinephrine Patient today on 07/05/2024, patient is not doing too great today. Patient is getting worse, he is developing worsening hypotension and requiring now higher doses of norepinephrine and higher doses of vasopressin. Patient required lines including central line and arterial line, and these were done today. Urine output remains about 35 to 40 cc/h, in spite of Lasix at 10 mg/h. His renal functioning is getting worse creatinine is up to 3.9 today. Again the patient is requiring norepinephrine and we have added vasopressin, patient seems to be developing acute kidney injury with ATN and hypotension as well as cardiorenal syndrome. Nephrology is considering to proceed with renal replacement therapy since the patient continues to remain volume overloaded. And urine output is no t that great. His creatinine baseline in March was 1.5. Looking at his echocardiogram, patient has chronic diastolic congestive heart failure with moderate mitral regurgitation, and severe pulmonary hypertension. Patient is also receiving antibiotics for his right lower extremity cellulitis, in addition he has Enterococcus urinary tract infection addressed by infectious disease on the case.WBC count is 7.1 hemoglobin is 11.1 basic metabolic profile is normal bicarb is 23 BUN is 101 creatinine 3.94. Chest x-ray is showing worsening pleural effusion and pulmonary edema Reevaluate today on 07/06/2024, patient remains in the ICU, still on pressors requiring norepinephrine at 0.24 mcg/kg/min, patient did not require vasopressin yesterday. Still on midodrine. A right femoral dialysis catheter was placed yesterday by vascular surgery. Patient is supposed to be started on hemodialysis today. Clinically today, he seems to be feeling better compared to yesterday.Denies any cough wheezing or shortness of breath, patient feels generally weak. WBC count is 7.9 hemoglobin 11.8 electrolytes are normal BUN is 102 creatinine 4.31 patient remains on Lasix drip at 10 mg/h, and the plan is to hemodialyze today Patient was evaluated today on 07/07/2024, patient remains in the ICU on 2 L nasal cannula patient underwent hemodialysis yesterday and 2 L were removed. His BUN is 90 creatinine 4.13. Remains on Lasix drip at 10 mg/h he is still requiring norepinephrine at 0.21 mcg/kg/min, blood pressure remains marginal at best. Patient is still covered with Unasyn still on Eliquis, patient was placed on Lopressor at 100 mg p.o. or twice daily by cardiology his echocardiogram showed significant valvular heart disease, pulmonary hypertension, ejection fraction is 50 to 55%. Patient is complaining today of some bloating and abdominal discomfort, but no nausea no vomiting. No significant pain. WBC count today is 8.2 hemoglobin 11.3 electrolytes are normal BUN is 90 creatinine 4.13, chest x-ray showed mild pulmonary vascular congestion Patient was evaluated today on 07/08/2024, patient remains in the ICU still requiring pressors, he is on norepinephrine at 0.22 mcg/kg/min blood pressure remains marginal, patient is intermittently getting hemodialysis, remains on multiple cardiac meds but he is off Lasix drip at this point. Pulmonary cooley he is on 2 L nasal cannula, does not seem to be in distress. Chest x-ray today showed minimal right basilar atelectasis, no evidence of pulmonary edema. Apparently the patient did not tolerate hemodialysis treatment yesterday well, because of low blood pressure. WBC count is 9.3 hemoglobin 11.4 basic metabolic profile is normal BUN is 82 creatinine 3.49 Patient was seen today on 07/09/2024, patient remains in the ICU, remains on no repinephrine and he is intermittently on hemodialysis. Off Lasix drip. On 3 L nasal cannula, on norepinephrine 0.13 mcg/kg/min on midodrine on IV fluid at KVO. Patient is also on Eliquis. Urine output is about 25 to 40 cc/h. His CVP is 15 patient had 2 L removed by hemodialysis on 07/08 and his CVP today is ranging between 12-15. Pulmonary cooley is not in distress, however his blood pressure remains extremely low requiring pressors hence I cannot move the patient out of the ICU as long as he is on pressors The patient is seen today July 10, 2024 in follow-up in the intensive care unit. Awake and alert in no acute distress. Currently resting fairly comfortably in bed. He is maintaining good O2 saturations in the 90s on 2 L/min per nasal cannula. He is still requiring norepinephrine at 20 mcg/min. Normal saline at KVO. Urine culture was positive for Enterococcus faecalis. Blood cultures revealed no growth. White count 10.1. Hemoglobin 11.4. Sodium 133. Potassium 4.3. Bicarb 26. BUN 83. Creatinine 3.79. Glucose 104. He is continued on Lasix 60 mg every 12 hours. Anticoagulated with Eliquis. Remains on midodrine 10 mg 4 times daily. The patient is seen today July 11, 2024 in follow-up in the intensive care unit. He is currently resting in bed. Awake and alert in no acute distress. Currently undergoing hemodialysis. He is still requiring norepinephrine at 0.17 mcg/kg/min. He has normal saline at KVO. He is maintaining O2 saturation in the 90s on 2 L/min per nasal cannula. His TSH did come back abnormal at 6.87, cortisol level was 8.8. He will be initiated on Synthroid 75 mcg IV daily and Solu-Cortef 50 mg IV every 6 hours. Continued on midodrine. He remains on Lasix 60 mg IV every 12 hours. Anticoagulated with Eliquis. White count 8.4. Hemoglobin 11.1. Platelets 169. Sodium 133. Potassium 4.2. Bicarb 27. BUN 67. Creatinine 3.30. Glucose 102. The patient is seen today July 12, 2024 in follow-up in the intensive care unit. He is awake and alert in no acute distress. Currently receiving hemodialysis with another 2 L planned to be removed. He is continued on norepinephrine down to 17 mcg/min. He had been initiated on Synthroid and Solu- Cortef with improvement in his blood pressure. White count 7.3. Hemoglobin 10.8 . Platelets 151. Sodium 133. Potassium 4.2. Bicarb 27. BUN 66. Creatinine 3.31. Glucose 130. He remains on IV diuretics. Anticoagulated with Eliquis. Currently in a -3.7 L balance. The patient is seen today July 13, 2024 in follow-up in the intensive care unit. He is resting comfortably in bed. Awake and alert in no acute distress. Maintaining O2 saturations in the 90s on 2 L/min per nasal cannula. He has normal saline at 10 mL/h. He is still requiring norepinephrine at 14 mcg/min. He is continued on Synthroid and Solu-Cortef. White count 12.4. Hemoglobin 11.5. Platelets 236. Sodium 132. Potassium 4.0. Bicarb 28. BUN 65. Creatinine 2.97. Glucose 116. He remains on Lasix 60 mg IV every 12 hours. Currently in a positive balance. Plan is for hemodialysis again tomorrow. The patient is seen today July 14, 2024 in follow-up in the intensive care unit. He is currently awake and alert in no acute distress resting comfortably in bed. Maintaining good O2 saturations in the 90s on room air. He is currently receiving hemodialysis with a goal of 2 L to be removed today. He is still requiring norepinephrine at 7 mcg/min. He is continued on Lasix 60 mg srinivas ry 12 hours. He remains on Synthroid and Solu-Cortef. Also continued on midodrine. Urine culture was positive for Enterococcus faecalis. Blood cultures revealed no growth. White count 10.2. Hemoglobin 10.6. Platelets 182. Sodium 132. Potassium 4.2. Bicarb 26. BUN 79. Creatinine 3.85. Gl ucose 109. The patient is seen today July 15, 2024 in follow-up in the intensive care unit. He is resting comfortably in bed. Awake and alert in no acute distress. Maintaining good O2 saturations in the 90s on room air. He is still requiring norepinephrine currently at 12 mcg/min. He is continued on Solu-Cortef, Synthroid, midodrine. He remains on IV diuretics per nephrology. He received hemodialysis yesterday with 2 L removed. Chest x-ray revealed chronic changes without evidence of acute pulmonary process. He did have a right internal jugular hemodialysis catheter placed yesterday. Femoral catheter was removed. Urine culture was positive for Enterococcus faecalis. Blood cultures revealed no growth. White count 8.0. Hemoglobin 10.5. Platelets 185. Sodium 132. Potassium 4.2. Bicarb 26. BUN 67. Creatinine 3.46. Glucose 113. The patient is seen today July 16, 2024 in follow-up in the intensive care unit. He is awake and alert in no acute distress. Resting comfortably in bed. Maintaining good O2 saturations in the 90s on room air. His norepinephrine is currently off. He is continued on midodrine. He is anticoagulated with Eliquis. Plan is for hemodialysis tomorrow and to continue a Wednesday schedule. White count 9.4. Hemoglobin 10.5. Platelets 226. Sodium 131. Potassium 4.7. Bicarb 25. BUN 86. Creatinine 4.1. Glucose 114. He remains on a low-salt diet and 1500 cc fluid restriction. IV Lasix discontinued per nephrology. On 07/17/2024, the patient is being seen for a follow-up., Comfortable on room air oxygen. Undergoing hemodialysis. Direct the patient was episodes of hypotension and the patient was encountering during hemodialysis. This morning, he is off pressors and is undergoing dialysis without any major issues. Blood pressure is on the lower side. It is stable for now. He is on no pressors. Urine output is minimal. He remains on metoprolol at a dose of 100 mg twice a day and his rate is under adequate control in terms of atrial fibrillation and the patient remains on anticoagulation with Eliquis 2.5 mg p.o. twice a day. He is also on midodrine 10 mg 4 times daily. White cell count is at 8 with hemoglobin 10.7 and a platelet count of 184. BUN is 103 with a creatinine of 4.5 and a sodium is at 131. Potassium level is at 4.8. He is awake and alert and communicating. No other significant events overnight. Undergoing hemodialysis this morning. On 07/18/2024, the patient is being seen for a follow-up. The patient is doing well. Hemodynamically stable. The patient was able to complete his hemodialysis yesterday. No hypotension. The patient is currently on a telemetry unit and the patient has not required any pressors and the patient remains hemodynamically stable. Lopressor dose has been modified. The patient remains in a controlled atrial fibrillation. BUN is 84 with a creatinine of 3.7. Potassium is at 4.9. Bicarb is at 29. Hemoglobin is at 10.3 with a white cell count of 8.1. Medications remain unchanged. On 07/20/2024, the patient is being seen for a follow-up. The patient is doing well. No new complaints for now. Last hemodialysis session was yesterday and this was completed without any complications. The patient's A-fib remains under adequate control for now. No active bleeding from the right IJ permacath site. Urine output remains low. He remains on midodrine. He remains on Cortef this will be discontinued. Labs from today shows a white cell count of 12.9, hemoglobin 11.8 and a platelet count of 216. BUN is 89 with a creatinine of 3.6 and a sodium levels at 132. On 07/21/2024, the patient is undergoing hemodialysis. His blood pressure is stable. The patient was taken off the IV Solu-Cortef yesterday. He remains on metoprolol 50 mg p.o. twice daily. He remains in atrial fibrillation. Rate is controlled for now. He is tolerating dialysis reasonably well. No hemodynamic instability and the patient remains on room air oxygen with a pulse ox of 95%. No other significant events overnight. Objective - Vital Signs Vital signs: Vital Signs Temp 98.2 F 07/21/24 07:40 Pulse 86 07/21/24 07:40 Resp 17 07/21/24 07:40 BP 108/75 07/21/24 10:09 Pulse Ox 97 07/21/24 07:40 FiO2 21 07/17/24 09:05 Intake & Output 07/20/24 07/21/24 07/21/24 18:59 06:59 18:59 Intake Total 20 20 240 Output Total 200 Balance -180 20 240 Weight 167 kg Intake: IV 20 20 Invasive Line 9 20 20 Oral 0 240 Output: Urine 200 Other: Voiding Method Indwelling Catheter Indwelling Catheter Indwelling Catheter # Bowel Movements 0 ABP, PAP, CO, CI - Last Documented Arterial Blood Pressure 106/46 - Exam GENERAL EXAM: Alert, 78-year-old male, resting in bed, on room air, in no acute distress. EYES: Normal reaction of pupils, equal size. NOSE: Clear with pink turbinates. THROAT: No erythema or exudates. NECK: No masses, no JVD. Right IJ hemodialysis catheter in place. CHEST: No chest wall deformity. LUNGS: Equal air entry with crackles in the right lung base. CVS: S1 and S2 normal with no audible murmur, regular rhythm. ABDOMEN: No hepatosplenomegaly, normal bowel sounds, no guarding or rigidity. SPINE: No scoliosis or deformity SKIN: No rashes CENTRAL NERVOUS SYSTEM: No focal deficits, tone is normal in all 4 extremities. EXTREMITIES: There is no peripheral edema. No clubbing, no cyanosis. Peripheral pulses are intact. - Labs CBC & Chem 7: 07/21/24 06:27 07/21/24 06:27 Labs: Abnormal Lab Results - Last 24 Hours (Table) 07/20/24 07/20/24 07/21/24 Range/Units 16:47 20:23 06:27 RBC 3.15 L (4.30-5.90) m/uL Hgb 11.3 L (13.0-17.5) gm/dL Hct 33.5 L (39.0-53.0) % MCV 106.5 H (80.0-100.0) fL MCH 35.9 H (25.0-35.0) pg RDW 17.4 H (11.5-15.5) % Plt Count 140 L (150-450) k/uL Macrocytosis Marked A Sodium (137-145) mmol/L Potassium (3.5-5.1) mmol/L BUN (9-20) mg/dL Creatinine (0.66-1.25) mg/dL POC Glucose (mg/dL) 129 H 113 H (70-110) mg/dL Total Bilirubin (0.2-1.3) mg/dL Alkaline Phosphatase (38-126) U/L Total Protein (6.3-8.2) g/dL Albumin (3.5-5.0) g/dL 07/21/24 Range/Units 06:27 RBC (4.30-5.90) m/uL Hgb (13.0-17.5) gm/dL Hct (39.0-53.0) % MCV (80.0-100.0) fL MCH (25.0-35.0) pg RDW (11.5-15.5) % Plt Count (150-450) k/uL Macrocytosis Sodium 132 L (137-145) mmol/L Potassium 5.6 H (3.5-5.1) mmol/L BUN 99 H (9-20) mg/dL Creatinine 4.44 H (0.66-1.25) mg/dL POC Glucose (mg/dL) (70-110) mg/dL Total Bilirubin 2.9 H (0.2-1.3) mg/dL Alkaline Phosphatase 140 H (38-126) U/L Total Protein 6.2 L (6.3-8.2) g/dL Albumin 3.0 L (3.5-5.0) g/dL Assessment and Plan Plan: Acute on chronic diastolic congestive heart failure with hypotension, recovered Hypotension, recovered and the patient is currently on no pressors undergoing hemodialysis without any major hypotension or hemodynamic instability. The patient is also after hydrocortisone. Acute on chronic stage IIIb kidney disease with massive volume overload and initiated on hemodialysis Hyperlipidemia Chronic atrial fibrillation, maintained on anticoagulation with Eliquis Enterococcus faecalis urinary tract infection completed Unasyn. Severe pulmonary hypertension Morbid obesity Gout History of obstructive sleep apnea, not tolerant to CPAP therapy Previous history of WPW and SVT Osteoarthritis Previous history of DVT of lower extremities Glaucoma Plan: Keep the dose of metoprolol to 50 mg p.o. twice a day No hypotension Patient is currently off hydrocortisone without any hemodynamic instability Currently off the norepinephrine, and the patient was able to complete hemodialysis without any major issues Continue Synthroid Continue midodrine Nephrology on the case and last hemodialysis session was on 07/21/2024 Hemodialysis Wednesday Keep the patient on telemetry unit
[2024-07-21] MEDS: SODIUM CHLORIDE 0.9% 500 ML 250 ML IV ONE (16:10)
[2024-07-21 16:22] LABS: Glucose,Whole Blood 72 mg/dL (70-110)
[2024-07-21 17:39] LABS: Glucose,Whole Blood 98 mg/dL (70-110)
[2024-07-21] MEDS: METOPROLOL TARTRATE 5 MG/5 ML VIAL IVP STA (17:58)
[2024-07-21] MEDS: DILTIAZEM 125 MG in SODIUM CHLORIDE 0.9% 100 ML IV SCH (18:15)
--- NOTE | 2024-07-21 19:15 | XR ---
EXAMINATION TYPE: XR chest 1V portable DATE OF EXAM: 07/21/2024 COMPARISON: 1124 INDICATION: Short of breath weakness TECHNIQUE: Single frontal view of the chest is obtained. FINDINGS: The heart size is enlarged. The pulmonary vasculature is normal. Small right pleural effusion is present. Port is present on the right with the tip in the proximal ri ght atrium. No pneumothorax evident. IMPRESSION: 1. Small right pleural effusion. [facility], Workstation: [facility], 07/21/2024 7:12 PM
[2024-07-21 19:57] LABS: Glucose,Whole Blood 247 mg/dL (70-110)
[2024-07-21 20:11] LABS: Glucose,Whole Blood 75 mg/dL (70-110)
[2024-07-21] MEDS: SODIUM CHLORIDE 0.9% 500 ML 500 ML IV ONE ×2 (21:49→23:07)
[2024-07-22] MEDS: NOREPINEPHRINE 4 MG in SODIUM CHLORIDE 0.9% 250 ML IV SCH (00:53)
[2024-07-22 09:34] LABS: Anisocytosis Slight; HCT 36.2 % (39.0-53.0); Hypochromasia Slight; MCH 33.8 pg (25.0-35.0); MCHC 30.4 g/dL (31.0-37.0); MCV 111.3 fL (80.0-100.0); Mean Platelet Volume 8.4; Platelet Count 144 k/uL (150-450); RBC 3.25 m/uL (4.30-5.90); RDW 16.6 % (11.5-15.5); WBC 16.4 k/uL (3.8-10.6)
[2024-07-22 09:37] LABS: Macrocytosis Marked
[2024-07-22 09:48] LABS: African American GFR (CKD) 18 (>60 ml/min/1.73 sqM); Anion Gap 11 mmol/L; Blood Urea Nitrogen 80 mg/dL (9-20); Calcium 8.2 mg/dL (8.4-10.2); Carbon Dioxide 24 mmol/L (22-30); Chloride 98 mmol/L (98-107); Glucose 112 mg/dL (74-99); Non-African American GFR(CKD) 15 (>60 ml/min/1.73 sqM); Potassium 4.8 mmol/L (3.5-5.1); Sodium 133 mmol/L (137-145)
[2024-07-22] MEDS: SODIUM CHLORIDE 0.9% 500 ML 500 ML IV ONE (10:00)
[2024-07-22] MEDS: bisacodyL 5 MG TABLET.DR PO PRN (10:03)
--- NOTE | 2024-07-22 12:04 | P.PN ---
Subjective Patient is seen for follow-up for acute kidney injury and chronic kidney disease. Started on hemodialysis on 07/06/2024 due to worsening volume status. Patient was transferred back to the ICU due to hypotension. S/p hemodialysis yesterday with UF of 2 L. Solu-Cortef was discontinued 2 days ago. Repeat cortisol level is pending. Permacat site continues to have oozing of blood Objective - Vital Signs Vital signs: Vital Signs Temp 98.5 F 07/22/24 00:00 Pulse 96 07/22/24 11:45 Resp 15 07/22/24 11:45 BP 104/73 07/22/24 11:45 Pulse Ox 95 07/22/24 11:45 FiO2 21 07/22/24 04:00 Intake & Output 07/21/24 07/22/24 07/22/24 18:59 06:59 18:59 Intake Total 1180 1307.908 500 Output Total 4400 245 50 Balance -3220 1062.908 450 Weight 165 kg Intake: IV 1000 Sodium Chloride 0.9% 500 500 ml 500 ml @ 999 mls/hr IV .Q31M [facility] Rx#:[id number] Sodium Chloride 0.9% 500 500 ml 500 ml @ 999 mls/hr IV .Q31M [facility] Rx#:[id number] Intake, IV Titration 107.908 Amount Diltiazem 125 mg In 20 Sodium Chloride 0.9% 100 ml @ 5 MG/HR 5 mls/hr IV .Q24H [facility] Rx#:[id number] Norepinephrine 4 mg In 87.908 Sodium Chloride 0.9% 250 ml @ 0.03 MCG/KG/MIN 18. 86 mls/hr IV .[id number] [facility] Rx#:[id number] Oral 780 200 500 Hemodialysis 400 Output: Urine 245 50 Hemodialysis 2400 Hemodialysis Net Amount 2000 Other: Voiding Method Indwelling Catheter Indwelling Catheter ABP, PAP, CO, CI - Last Documented Arterial Blood Pressure 106/46 - Exam Patient is awake, comfortable, no acute distress. Examination of the heart S1 and S2 Examination of the lungs decreased breath sounds at the bases Abdomen is soft obese nontender Examination of lower extremities shows edema 1+ bilaterally, improved. Significant wrinkling of the skin of the legs noted. [employer] exam grossly intact - Labs CBC & Chem 7: 07/22/24 09:09 07/22/24 09:09 Labs: Abnormal Lab Results - Last 24 Hours (Table) 07/21/24 07/22/24 07/22/24 Range/Units 19:55 09:09 09:09 WBC 16.4 H (3.8-10.6) k/uL RBC 3.25 L (4.30-5.90) m/uL Hgb 11.0 L (13.0-17.5) gm/dL Hct 36.2 L (39.0-53.0) % MCV 111.3 H (80.0-100.0) fL MCHC 30.4 L (31.0-37.0) g/dL RDW 16.6 H (11.5-15.5) % Plt Count 144 L (150-450) k/uL Macrocytosis Marked A Sodium 133 L (137-145) mmol/L BUN 80 H (9-20) mg/dL Creatinine 3.63 H (0.66-1.25) mg/dL Glucose 112 H (74-99) mg/dL POC Glucose (mg/dL) 247 H (70-110) mg/dL Calcium 8.2 L (8.4-10.2) mg/dL Assessment and Plan Assessment: 1. Acute kidney injury secondary to ATN secondary to hypotension and cardiorenal syndrome. Started on hemodialysis on 07/06/2024 due to worsening renal function and persistent volume overload. No hydronephrosis noted on ultrasound. Trace protein on UA. Patient has right IJ permacath 2. 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 Creatinine 1.5 in March 2024. 3. Acute on chronic diastolic CHF and moderate mitral consultation, severe tricuspid regurgitation and pulmonary hypertension. 4. Volume overload. Improved with dialysis and ultrafiltration. 5. Right lower extremity cellulitis and Enterococcus UTI on antibiotics. ID following. 6. Hypervolemic hyponatremia. Improved 7. Bleeding at the site of IJ PermCath, improved Plan: hemodialysis on Wednesday schedule Repeat DDAVP 1 Agree with fluid bolus Repeat labs in a.m.
[2024-07-22] MEDS: DESMOPRESSIN ACETATE IVPB ONE (13:17)
[2024-07-22] MEDS: SODIUM CHLORIDE 0.9% IVPB ONE (13:17)
--- NOTE | 2024-07-22 13:59 | P.PN ---
Subjective Progress Note Date: 07/22/24 This is a 78-year-old male patient with massive fluid overload, ongoing difficulty with chronic kidney failure as the patient has developed an acute on top of chronic renal disease with extensive third spacing and anasarca and possibly a component of cardiorenal syndrome. 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 Baseline creatinine is around 1.5 back in March 2024. The patient presented to us with volume overload, acute on top of chronic diastolic heart failure with moderate mitral regurgitation. Patient also was diagnosed having an Enterococcus urinary tract infection currently on IV Unasyn. Initial rate, attempts to diurese this patient with Lasix have failed due to ongoing hypotension. The patient was started on midodrine 10 mg p.o. 4 times daily. Subsequently, I was asked to transfer this patient to the ICU for hemodynamic support and pressor use as the patient was going to be started on Lasix 5 mg infusion in combination with Za roxolyn 5 mg p.o. daily. Based on that, the patient was transferred to the ICU. Lasix s drip was started and the patient will be started also on norepinephrine for blood pressure support. He is currently awake and alert. Following commands. He is on oxygen at 2 L/min nasal cannula. His chest x-ray showing small bilateral pleural effusion and this is less x-ray that was done on 06/26/2024. Patient was evaluated today on 07/03/24, remains in the ICU, he was seen by Dr. Jp nance on consultation yesterday, he was placed on Lasix drip at 5 mg/h, making about 50 to 75 cc of urine per hour. Blood pressure is marginal he is requiring norepinephrine at 0.06 mcg/kg/min. Patient is not complaining of shortness of breath, he is on 2 L nasal cannula, he seems to be extremely swollen edematous and has anasarca. Nonetheless the patient is feeling better compared to yesterday. And seemsto be responding to the Lasix drip. WBC count is 8.4 hemoglobin 12.2 electrolytes are normal BUN is 92 creatinine 3.53., Relatively unchanged compared to yesterday.Patient's baseline creatinine on 06/26 was 2.19. Patient is receiving Unasyn for what seems to be acute urinary tract infection secondary to Enterococcus. Faecalis. Patient was evaluated today on 07/04/2024, remains in the ICU remains on Lasix drip and dose has been increased to 10 mg/h. Patient is requiring norepinephrine at 0.07 mcg/kg/min he is also on IV fluid at KVO. Antibiotics cooley he is on Unasyn for his UTI, and is also on Eliquis. Patient tells me that he is feeling better, breathing easier, and he continues to respond to Lasix but urine output did not improve much by increasing the dose of Lasix., WBC is 8.4 hemoglobin 11.9 basic metabolic profile is normal bicarb is 27 BUN is 95 creatinine 3.77 Gradually rising. His renal status is being addressed and followed by nephrology chest x-ray showed evidence of cardiomegaly and pulmonary vascular congestion. Patient remains on 2 L nasal cannula, and he is O2 satura tion is 97%. Blood pressure is marginal, his mean arterial pressure is 68, patient is requiring norepinephrine Patient today on 07/05/2024, patient is not doing too great today. Patient is getting worse, he is developing worsening hypotension and requiring now higher doses of norepinephrine and higher doses of vasopressin. Patient required lines including central line and arterial line, and these were done today. Urine output remains about 35 to 40 cc/h, in spite of Lasix at 10 mg/h. His renal functioning is getting worse creatinine is up to 3.9 today. Again the patient is requiring norepinephrine and we have added vasopressin, patient seems to be developing acute kidney injury with ATN and hypotension as well as cardiorenal syndrome. Nephrology is considering to proceed with renal replacement therapy since the patient continues to remain volume overloaded. And urine output is no t that great. His creatinine baseline in March was 1.5. Looking at his echocardiogram, patient has chronic diastolic congestive heart failure with moderate mitral regurgitation, and severe pulmonary hypertension. Patient is also receiving antibiotics for his right lower extremity cellulitis, in addition he has Enterococcus urinary tract infection addressed by infectious disease on the case.WBC count is 7.1 hemoglobin is 11.1 basic metabolic profile is normal bicarb is 23 BUN is 101 creatinine 3.94. Chest x-ray is showing worsening pleural effusion and pulmonary edema Reevaluate today on 07/06/2024, patient remains in the ICU, still on pressors requiring norepinephrine at 0.24 mcg/kg/min, patient did not require vasopressin yesterday. Still on midodrine. A right femoral dialysis catheter was placed yesterday by vascular surgery. Patient is supposed to be started on hemodialysis today. Clinically today, he seems to be feeling better compared to yesterday.Denies any cough wheezing or shortness of breath, patient feels generally weak. WBC count is 7.9 hemoglobin 11.8 electrolytes are normal BUN is 102 creatinine 4.31 patient remains on Lasix drip at 10 mg/h, and the plan is to hemodialyze today Patient was evaluated today on 07/07/2024, patient remains in the ICU on 2 L nasal cannula patient underwent hemodialysis yesterday and 2 L were removed. His BUN is 90 creatinine 4.13. Remains on Lasix drip at 10 mg/h he is still requiring norepinephrine at 0.21 mcg/kg/min, blood pressure remains marginal at best. Patient is still covered with Unasyn still on Eliquis, patient was placed on Lopressor at 100 mg p.o. or twice daily by cardiology his echocardiogram showed significant valvular heart disease, pulmonary hypertension, ejection fraction is 50 to 55%. Patient is complaining today of some bloating and abdominal discomfort, but no nausea no vomiting. No significant pain. WBC count today is 8.2 hemoglobin 11.3 electrolytes are normal BUN is 90 creatinine 4.13, chest x-ray showed mild pulmonary vascular congestion Patient was evaluated today on 07/08/2024, patient remains in the ICU still requiring pressors, he is on norepinephrine at 0.22 mcg/kg/min blood pressure remains marginal, patient is intermittently getting hemodialysis, remains on multiple cardiac meds but he is off Lasix drip at this point. Pulmonary cooley he is on 2 L nasal cannula, does not seem to be in distress. Chest x-ray today showed minimal right basilar atelectasis, no evidence of pulmonary edema. Apparently the patient did not tolerate hemodialysis treatment yesterday well, because of low blood pressure. WBC count is 9.3 hemoglobin 11.4 basic metabolic profile is normal BUN is 82 creatinine 3.49 Patient was seen today on 07/09/2024, patient remains in the ICU, remains on no repinephrine and he is intermittently on hemodialysis. Off Lasix drip. On 3 L nasal cannula, on norepinephrine 0.13 mcg/kg/min on midodrine on IV fluid at KVO. Patient is also on Eliquis. Urine output is about 25 to 40 cc/h. His CVP is 15 patient had 2 L removed by hemodialysis on 07/08 and his CVP today is ranging between 12-15. Pulmonary cooley is not in distress, however his blood pressure remains extremely low requiring pressors hence I cannot move the patient out of the ICU as long as he is on pressors The patient is seen today July 10, 2024 in follow-up in the intensive care unit. Awake and alert in no acute distress. Currently resting fairly comfortably in bed. He is maintaining good O2 saturations in the 90s on 2 L/min per nasal cannula. He is still requiring norepinephrine at 20 mcg/min. Normal saline at KVO. Urine culture was positive for Enterococcus faecalis. Blood cultures revealed no growth. White count 10.1. Hemoglobin 11.4. Sodium 133. Potassium 4.3. Bicarb 26. BUN 83. Creatinine 3.79. Glucose 104. He is continued on Lasix 60 mg every 12 hours. Anticoagulated with Eliquis. Remains on midodrine 10 mg 4 times daily. The patient is seen today July 11, 2024 in follow-up in the intensive care unit. He is currently resting in bed. Awake and alert in no acute distress. Currently undergoing hemodialysis. He is still requiring norepinephrine at 0.17 mcg/kg/min. He has normal saline at KVO. He is maintaining O2 saturation in the 90s on 2 L/min per nasal cannula. His TSH did come back abnormal at 6.87, cortisol level was 8.8. He will be initiated on Synthroid 75 mcg IV daily and Solu-Cortef 50 mg IV every 6 hours. Continued on midodrine. He remains on Lasix 60 mg IV every 12 hours. Anticoagulated with Eliquis. White count 8.4. Hemoglobin 11.1. Platelets 169. Sodium 133. Potassium 4.2. Bicarb 27. BUN 67. Creatinine 3.30. Glucose 102. The patient is seen today July 12, 2024 in follow-up in the intensive care unit. He is awake and alert in no acute distress. Currently receiving hemodialysis with another 2 L planned to be removed. He is continued on norepinephrine down to 17 mcg/min. He had been initiated on Synthroid and Solu- Cortef with improvement in his blood pressure. White count 7.3. Hemoglobin 10.8 . Platelets 151. Sodium 133. Potassium 4.2. Bicarb 27. BUN 66. Creatinine 3.31. Glucose 130. He remains on IV diuretics. Anticoagulated with Eliquis. Currently in a -3.7 L balance. The patient is seen today July 13, 2024 in follow-up in the intensive care unit. He is resting comfortably in bed. Awake and alert in no acute distress. Maintaining O2 saturations in the 90s on 2 L/min per nasal cannula. He has normal saline at 10 mL/h. He is still requiring norepinephrine at 14 mcg/min. He is continued on Synthroid and Solu-Cortef. White count 12.4. Hemoglobin 11.5. Platelets 236. Sodium 132. Potassium 4.0. Bicarb 28. BUN 65. Creatinine 2.97. Glucose 116. He remains on Lasix 60 mg IV every 12 hours. Currently in a positive balance. Plan is for hemodialysis again tomorrow. The patient is seen today July 14, 2024 in follow-up in the intensive care unit. He is currently awake and alert in no acute distress resting comfortably in bed. Maintaining good O2 saturations in the 90s on room air. He is currently receiving hemodialysis with a goal of 2 L to be removed today. He is still requiring norepinephrine at 7 mcg/min. He is continued on Lasix 60 mg srinivas ry 12 hours. He remains on Synthroid and Solu-Cortef. Also continued on midodrine. Urine culture was positive for Enterococcus faecalis. Blood cultures revealed no growth. White count 10.2. Hemoglobin 10.6. Platelets 182. Sodium 132. Potassium 4.2. Bicarb 26. BUN 79. Creatinine 3.85. Gl ucose 109. The patient is seen today July 15, 2024 in follow-up in the intensive care unit. He is resting comfortably in bed. Awake and alert in no acute distress. Maintaining good O2 saturations in the 90s on room air. He is still requiring norepinephrine currently at 12 mcg/min. He is continued on Solu-Cortef, Synthroid, midodrine. He remains on IV diuretics per nephrology. He received hemodialysis yesterday with 2 L removed. Chest x-ray revealed chronic changes without evidence of acute pulmonary process. He did have a right internal jugular hemodialysis catheter placed yesterday. Femoral catheter was removed. Urine culture was positive for Enterococcus faecalis. Blood cultures revealed no growth. White count 8.0. Hemoglobin 10.5. Platelets 185. Sodium 132. Potassium 4.2. Bicarb 26. BUN 67. Creatinine 3.46. Glucose 113. The patient is seen today July 16, 2024 in follow-up in the intensive care unit. He is awake and alert in no acute distress. Resting comfortably in bed. Maintaining good O2 saturations in the 90s on room air. His norepinephrine is currently off. He is continued on midodrine. He is anticoagulated with Eliquis. Plan is for hemodialysis tomorrow and to continue a Wednesday schedule. White count 9.4. Hemoglobin 10.5. Platelets 226. Sodium 131. Potassium 4.7. Bicarb 25. BUN 86. Creatinine 4.1. Glucose 114. He remains on a low-salt diet and 1500 cc fluid restriction. IV Lasix discontinued per nephrology. On 07/17/2024, the patient is being seen for a follow-up., Comfortable on room air oxygen. Undergoing hemodialysis. Direct the patient was episodes of hypotension and the patient was encountering during hemodialysis. This morning, he is off pressors and is undergoing dialysis without any major issues. Blood pressure is on the lower side. It is stable for now. He is on no pressors. Urine output is minimal. He remains on metoprolol at a dose of 100 mg twice a day and his rate is under adequate control in terms of atrial fibrillation and the patient remains on anticoagulation with Eliquis 2.5 mg p.o. twice a day. He is also on midodrine 10 mg 4 times daily. White cell count is at 8 with hemoglobin 10.7 and a platelet count of 184. BUN is 103 with a creatinine of 4.5 and a sodium is at 131. Potassium level is at 4.8. He is awake and alert and communicating. No other significant events overnight. Undergoing hemodialysis this morning. On 07/18/2024, the patient is being seen for a follow-up. The patient is doing well. Hemodynamically stable. The patient was able to complete his hemodialysis yesterday. No hypotension. The patient is currently on a telemetry unit and the patient has not required any pressors and the patient remains hemodynamically stable. Lopressor dose has been modified. The patient remains in a controlled atrial fibrillation. BUN is 84 with a creatinine of 3.7. Potassium is at 4.9. Bicarb is at 29. Hemoglobin is at 10.3 with a white cell count of 8.1. Medications remain unchanged. On 07/20/2024, the patient is being seen for a follow-up. The patient is doing well. No new complaints for now. Last hemodialysis session was yesterday and this was completed without any complications. The patient's A-fib remains under adequate control for now. No active bleeding from the right IJ permacath site. Urine output remains low. He remains on midodrine. He remains on Cortef this will be discontinued. Labs from today shows a white cell count of 12.9, hemoglobin 11.8 and a platelet count of 216. BUN is 89 with a creatinine of 3.6 and a sodium levels at 132. On 07/21/2024, the patient is undergoing hemodialysis. His blood pressure is stable. The patient was taken off the IV Solu-Cortef yesterday. He remains on metoprolol 50 mg p.o. twice daily. He remains in atrial fibrillation. Rate is controlled for now. He is tolerating dialysis reasonably well. No hemodynamic instability and the patient remains on room air oxygen with a pulse ox of 95%. No other significant events overnight. On 06/22/2024, patient is being seen in follow-up. The patient was transferred to the intensive. As the patient became hypotensive and he developed atrial fibrillation with rapid ventricular response. He was placed on a Cardizem drip at 5 mg an hour and currently is off the Cardizem. He also received a total of 1 L of IV fluid normal saline bolus. Subsequently, the patient was started on low-dose norepinephrine and currently norepinephrine is running at 0.03 mcg/kg/min. Last hemodialysis session was on 07/21/2024 and a total of 2.4 L of fluid was removed. He is currently on 3 days of oxygen by nasal cannula. Awake and alert and communicating. Afebrile. White cell count is 16 with a hemoglobin of 11 and a platelet count of 144. BUN is 80 with a creatinine of 3.6. Sodium levels at 133. No respiratory distress. He was taken off the IV hydrocortisone yesterday. Objective - Vital Signs Vital signs: Vital Signs Temp 98.5 F 07/22/24 00:00 Pulse 100 07/22/24 07:00 Resp 15 07/22/24 07:00 BP 104/72 07/22/24 07:00 Pulse Ox 96 07/22/24 07:00 FiO2 21 07/22/24 04:00 Intake & Output 07/21/24 07/22/24 07/22/24 18:59 06:59 18:59 Intake Total 1180 1307.908 Output Total 4400 245 5 Balance -3220 1062.908 -5 Weight 165 kg Intake: IV 1000 Sodium Chloride 0.9% 500 500 ml 500 ml @ 999 mls/hr IV .Q31M ONE Rx#:[id number] Sodium Chloride 0.9% 500 500 ml 500 ml @ 999 mls/hr IV .Q31M ONE Rx#:[id number] Intake, IV Titration 107.908 Amount Diltiazem 125 mg In 20 Sodium Chloride 0.9% 100 ml @ 5 MG/HR 5 mls/hr IV .Q24H [facility] Rx#:[id number] Norepinephrine 4 mg In 87.908 Sodium Chloride 0.9% 250 ml @ 0.03 MCG/KG/MIN 18. 86 mls/hr IV .[id number] [facility] Rx#:[id number] Oral 780 200 Hemodialysis 400 Output: Urine 245 5 Hemodialysis 2400 Hemodialysis Net Amount 2000 Other: Voiding Method Indwelling Catheter Indwelling Catheter ABP, PAP, CO, CI - Last Documented Arterial Blood Pressure 106/46 - Exam GENERAL EXAM: Alert, 78-year-old male, resting in bed, on 3 L of oxygen by nasal cannula. No signs of any respiratory distress EYES: Normal reaction of pupils, equal size. NOSE: Clear with pink turbinates. THROAT: No erythema or exudates. NECK: No masses, no JVD. Right IJ hemodialysis catheter in place. CHEST: No chest wall deformity. LUNGS: Equal air entry with crackles in the right lung base. CVS: S1 and S2 normal with no audible murmur, regular rhythm. ABDOMEN: No hepatosplenomegaly, normal bowel sounds, no guarding or rigidity. SPINE: No scoliosis or deformity SKIN: No rashes CENTRAL NERVOUS SYSTEM: No focal deficits, tone is normal in all 4 extremities. EXTREMITIES: There is no peripheral edema. No clubbing, no cyanosis. Peripheral pulses are intact. - Labs CBC & Chem 7: 07/22/24 09:09 07/22/24 09:09 Labs: Abnormal Lab Results - Last 24 Hours (Table) 07/21/24 Range/Units 19:55 POC Glucose (mg/dL) 247 H (70-110) mg/dL Assessment and Plan Plan: Acute on chronic diastolic congestive heart failure with hypotension, recovered Hypotension, could be hypovolemic. Atrial fibrillation with rapid ventricular response also contributed to this hypotension. The patient remains in A-fib with a controlled rate. He was given a total of 1 L of IV fluids and the patient is currently on low-dose norepinephrine. Acute on chronic stage IIIb kidney disease with massive volume overload and initiated on hemodialysis, last hemodialysis session was on 07/21/2024 with 2.4 L of ultrafiltration. Hyperlipidemia Chronic atrial fibrillation, maintained on anticoagulation with Eliquis Enterococcus faecalis urinary tract infection completed Unasyn. Severe pulmonary hypertension Morbid obesity Gout History of obstructive sleep apnea, not tolerant to CPAP therapy Previous history of WPW and SVT Osteoarthritis Previous history of DVT of lower extremities Glaucoma Plan: Give the patient another 500 cc of saline bolus Wean off pressors Check baseline serum cortisol level and perform a cosyntropin stimulation test if needed Keep the dose of metoprolol to 50 mg p.o. twice a day, once the patient's blood pressure normalizes No need for Cardizem drip at this point in time. Currently titrating norepinephrine Continue Synthroid Continue midodrine Nephrology on the case and last hemodialysis session was on 07/21/2024 Hemodialysis Wednesday Keep the patient on telemetry unit
--- NOTE | 2024-07-22 14:01 | P.PN ---
Subjective Progress Note Date: 07/22/24 Acute on chronic right-sided congestive heart failure with chronic hypotension Patient is a 78-year-old male was admitted to hospital due to fluid overload and history of chronic kidney disease acute on chronic due to mild cardiorenal syndrome., Baseline creatinine level 1.5. Patient was diagnosed with Enterococcus urinary tract infection currently on Unasyn. Unable to diurese due to hypotension. Patient was started on midodrine and subsequently transferred to MICU due to hypotension. He was started on Lasix drip and Zaroxolyn p.o. and also was requiring norepinephrine for pressor support. 07/06/2024 Patient remains in MICU. Awake alert and oriented x 3. Currently lying in the bed. Requiring pressor support with norepinephrine and is also being continued on midodrine. Nephrology is planning for hemodialysis and right femoral Jaron catheter was placed by vascular surgery. Otherwise patient denied any chest pain. No worsening shortness of breath. Chest x-ray showed cardiomegaly, pulmonary vascular congestion and bilateral pleural effusions. Correlate with BNP for CHF. Laboratory data showed WBC 7.9 hemoglobin 11.8 and platelets 198, sodium 135 potassium 4.3 chloride 99 bicarb is 26, BUN 102 and creatinine 4.31 and calcium 8.8. 07/07/2024 Patient is in MICU. Awake alert and oriented x 3. Currently requiring 2 L oxygen via nasal cannula. Chest x-ray showed mild pulmonary vascular congestion. Left PICC in the appropriate position. Patient was initiated on hemodialysis on 07/06/2024 with 2 L ultrafiltration. Patient is maintained on Lasix drip and is also requiring norepinephrine for pressor support. Otherwise denied any abdominal pain. No nausea or vomiting. Did not have any bowel meant last few days. Otherwise patient is afebrile. No cough or sputum production. Laboratory data showed WBC 8.2 hemoglobin 11.3 and platelets 150 sodium 135 potassium 4.3 chloride 100 bicarb is 26 BUN 19 creatinine 4.13 and blood sugar 105 and calcium 8.7. Patient is on Unasyn for Enterococcus faecalis UTI. 07/08. Patient seen and examined. Blood work done this morning showed WBC 9.3, hemoglobin 12.4, platelet count 136, sodium 133, potassium 4.2, BUN 82, creatinine 3.49. States he feels better. Started on dialysis on 07/06. 07/09. Patient seen and examined. Blood work done this morning showed . WBC 8.4, hemoglobin 11.2, platelet count 133, sodium 133, potassium 4.1, BUN 74, creatinine 2.95. States he feels much better. He continues to be on pressors. Swelling of lower extremities is improved The patient is seen today July 10, 2024 in follow-up in the intensive care unit. Awake and alert in no acute distress. Currently resting fairly comfortably in bed. He is maintaining good O2 saturations in the 90s on 2 L/min per nasal cannula. He is still requiring norepinephrine at 20 mcg/min. Normal saline at KVO. Urine culture was positive for Enterococcus faecalis. Blood cultures revealed no growth. White count 10.1. Hemoglobin 11.4. Sodium 133. Potassium 4.3. Bicarb 26. BUN 83. Creatinine 3.79. Glucose 104. He is co ntinued on Lasix 60 mg every 12 hours. Anticoagulated with Eliquis. Remains on midodrine 10 mg 4 times daily. The patient is seen today July 11, 2024 in follow-up in the intensive care unit. He is currently resting in bed. Awake and alert in no acute distress. Currently undergoing hemodialysis. He is still requiring norepinephrine at 0.17 mcg/kg/min. He has normal saline at KVO. He is maintaining O2 saturation in the 90s on 2 L/min per nasal cannula. His TSH did come back abnormal at 6.87, cortisol level was 8.8. He will be initiated on Synthroid 75 mcg IV daily and Solu-Cortef 50 mg IV every 6 hours. Continued on midodrine. He remains on Lasix 60 mg IV every 12 hours. Anticoagulated with Eliquis. White count 8.4. Hemoglobin 11.1. Platelets 169. Sodium 133. Potassium 4.2. Bicarb 27. BUN 67. Creatinine 3.30. Glucose 102. The patient is seen today July 12, 2024 in follow-up in the intensive care unit. He is awake and alert in no acute distress. Currently receiving hemodialysis with another 2 L planned to be removed. He is continued on norepinephrine down to 17 mcg/min. He had been initiated on Synthroid and Solu- Cortef with improvement in his blood pressure. White count 7.3. Hemoglobin 10.8. Platelets 151. Sodium 133. Potassium 4.2. Bicarb 27. BUN 66. Creatinine 3.31. Glucose 130. He remains on IV diuretics. Anticoagulated with Eliquis. Currently in a -3.7 L balance. The patient is seen today July 13, 2024 in follow-up in the intensive care unit. He is resting comfortably in bed. Awake and alert in no acute distress. Maintaining O2 saturations in the 90s on 2 L/min per nasal cannula. He has normal saline at 10 mL/h. He is still requiring norepinephrine at 14 mcg/min. He is continued on Synthroid and Solu-Cortef. White count 12.4. Hemoglobin 11.5. Platelets 236. Sodium 132. Potassium 4.0. Bicarb 28. BUN 65. Creat inine 2.97. Glucose 116. He remains on Lasix 60 mg IV every 12 hours. Currently in a positive balance. Plan is for hemodialysis again tomorrow. The patient is seen today July 14, 2024 in follow-up in the intensive care unit. He is currently awake and alert in no acute distress resting comfortably in bed. Maintaining good O2 saturations in the 90s on room air. He is currently receiving hemodialysis with a goal of 2 L to be removed today. He is still requiring norepinephrine at 7 mcg/min. He is continued on Lasix 60 mg every 12 hours. He remains on Synthroid and Solu-Cortef. Also continued on midodrine. Urine culture was positive for Enterococcus faecalis. Blood cultures revealed no growth. White count 10.2. Hemoglobin 10.6. Platelets 182. Sodium 132. Potassium 4.2. Bicarb 26. BUN 79. Creatinine 3.85. Glucose 109. The patient is seen today July 15, 2024 in follow-up in the intensive care unit. He is resting comfortably in bed. Awake and alert in no acute distress. Maintaining good O2 saturations in the 90s on room air. He is still requiring norepinephrine currently at 12 mcg/min. He is continued on Solu-Cortef, Synthroid, midodrine. He remains on IV diuretics per nephrology. He received hemodialysis yesterday with 2 L removed. Chest x-ray revealed chronic changes without evidence of acute pulmonary process. He did have a right internal jugular hemodialysis catheter placed yesterday. Femoral catheter was removed. Urine culture was positive for Enterococcus faecalis. Blood cultures revealed no growth. White count 8.0. Hemoglobin 10.5. Platelets 185. Sodium 132. Potassium 4.2. Bicarb 26. BUN 67. Creatinine 3.46. Glucose 113. The patient is seen today July 16, 2024 in follow-up in the intensive care unit. He is awake and alert in no acute distress. Resting comfortably in bed. Maintaining good O2 saturations in the 90s on room air. His norepinephrine is currently off. He is continued on midodrine. He is anticoagulated with Eliquis. Plan is for hemodialysis tomorrow and to continue a Wednesday schedule. White count 9.4. Hemoglobin 10.5. Platelets 226. Sodium 131. Potassium 4.7. Bicarb 25. BUN 86. Creatinine 4.1. Glucose 114. He remains on a low-salt diet and 1500 cc fluid restriction. IV Lasix discontinued per nephrology. On 07/17/2024, the patient is being seen for a follow-up., Comfortable on room air oxygen. Undergoing hemodialysis. Direct the patient was episodes of hypot ension and the patient was encountering during hemodialysis. This morning, he is off pressors and is undergoing dialysis without any major issues. Blood pressure is on the lower side. It is stable for now. He is on no pressors. Urine output is minimal. He remains on metoprolol at a dose of 100 mg twice a day and his rate is under adequate control in terms of atrial fibrillation and the patient remains on anticoagulation with Eliquis 2.5 mg p.o. twice a day. He is also on midodrine 10 mg 4 times daily. White cell count is at 8 with hemoglobin 10.7 and a platelet count of 184. BUN is 103 with a creatinine of 4.5 and a sodium is at 131. Potassium level is at 4.8. He is awake and alert and communicating. No other significant events overnight. Undergoing hemodialysis this morning. On 07/18/2024, the patient is being seen for a follow-up. The patient is doing well. Hemodynamically stable. The patient was able to complete his hemodialysis yesterday. No hypotension. The patient is currently on a telemetry unit and the patient has not required any pressors and the patient r emains hemodynamically stable. Lopressor dose has been modified. The patient remains in a controlled atrial fibrillation. BUN is 84 with a creatinine of 3.7. Potassium is at 4.9. Bicarb is at 29. Hemoglobin is at 10.3 with a white cell count of 8.1. Medications remain unchanged. On 07/20/2024, the patient is being seen for a follow-up. The patient is doing well. No new complaints for now. Last hemodialysis session was yesterday and this was completed without any complications. The patient's A-fib remains under adequate control for now. No active bleeding from the right IJ permacath site. Urine output remains low. He remains on midodrine. He remains on Cortef this will be discontinued. Labs from today shows a white cell count of 12.9, hemoglobin 11.8 and a platelet count of 216. BUN is 89 with a creatinine of 3.6 and a sodium levels at 132. 07/22. Patient seen and examined. Patient was transferred to ICU for hypotension and A-fib with RVR. Currently patient is off the the Cardizem drip. Currently being weaned off the Levophed. REVIEW OF SYSTEMS: CONSTITUTIONAL: No fever, no malaise,. CARDIOVASCULAR: No chest pain, no palpitations, no syncope. PULMONARY: No shortness of breath, no cough, GASTROINTESTINAL: No diarrhea, no nausea, no vomiting, no abdominal pain. NEUROLOGICAL: No headaches, no weakness, PHYSICAL EXAMINATION: GENERAL: The patient is alert and oriented x3, not in any acute distress. Ill looking HEENT: Pupils are round and equally reacting to light. EOMI. No scleral icterus. No conjunctival pallor. Normocephalic, atraumatic. No pharyngeal erythema. No thyromegaly. CARDIOVASCULAR: S1 and S2 present. No murmurs, rubs, or gallops. PULMONARY: Chest is clear to auscultation, no wheezing or crackles. ABDOMEN: Soft, nontender, nondistended, normoactive bowel sounds. No palpable organomegaly. MUSCULOSKELETAL: No joint swelling or deformity. EXTREMITIES: No cyanosis, clubbing, or pedal edema. NEUROLOGICAL: Gross neurological examination did not reveal any focal deficits. SKIN: No rashes. Assessment and plan Acute on chronic HFpEF mainly due to right heart failure. Acute on chronic kidney disease stage IIIb with volume overload. Possible cardiorenal. Requiring hemodialysis initiated on 07/06/2024 Permanent atrial fibrillation on anticoagulation with Coumadin transition to Eliquis Supratherapeutic INR level on admission Valvular heart disease with moderate MR, moderate to severe pulmonary hypertension Obstructive sleep apnea not tolerating CPAP History of WPW and SVT Hyperlipidemia Hypertension History of DVT Dilated thoracic aorta History of gout Osteoarthritis Enterococcus urinary tract infection currently on Unasyn Morbid obesity BMI 53.0 Monitor vital signs Monitor CBC Monitor CMP Continue telemetry monitoring Strict I's and O's, daily weights Wean off Levophed Cardizem drip discontinued Continue Lopressor, Eliquis Continue dialysis per nephrology Nephrology following ICU following Cardiology following Labs and medication were reviewed.. Continue same treatment. Continue with symptomatic treatment. Resume home medication. Monitor labs and vitals. DVT and GI prophylaxis. Further recommendations as per clinical course of the patient Dictation was produced using [employer] dictation software. please excuse any grammatical, word or spelling errors. Objective - Vital Signs Vital signs: Vital Signs Temp 98.5 F 07/22/24 00:00 Pulse 100 07/22/24 07:00 Resp 15 07/22/24 07:00 BP 104/72 07/22/24 07:00 Pulse Ox 96 07/22/24 07:00 FiO2 21 07/22/24 04:00 Intake & Output 07/21/24 07/22/24 07/22/24 18:59 06:59 18:59 Intake Total 1180 1307.908 Output Total 4400 245 5 Balance -3220 1062.908 -5 Weight 165 kg Intake: IV 1000 Sodium Chloride 0.9% 500 500 ml 500 ml @ 999 mls/hr IV .Q31M ONE Rx#:[id number] Sodium Chloride 0.9% 500 500 ml 500 ml @ 999 mls/hr IV .Q31M ONE Rx#:[id number] Intake, IV Titration 107.908 Amount Diltiazem 125 mg In 20 Sodium Chloride 0.9% 100 ml @ 5 MG/HR 5 mls/hr IV .Q24H [facility] Rx#:[id number] Norepinephrine 4 mg In 87.908 Sodium Chloride 0.9% 250 ml @ 0.03 MCG/KG/MIN 18. 86 mls/hr IV .[id number] [facility] Rx#:[id number] Oral 780 200 Hemodialysis 400 Output: Urine 245 5 Hemodialysis 2400 Hemodialysis Net Amount 1999 Other: Voiding Method Indwelling Catheter Indwelling Catheter ABP, PAP, CO, CI - Last Documented Arterial Blood Pressure 106/46 - Labs CBC & Chem 7: 10/19/24 09:09 07/22/24 09:09 Labs: Abnormal Lab Results - Last 24 Hours (Table) 07/21/24 Range/Units 19:55 POC Glucose (mg/dL) 247 H (70-110) mg/dL
[2024-07-23 06:24] LABS: Anisocytosis Slight; HCT 41.3 % (39.0-53.0); HGB 13.4 gm/dL (13.0-17.5); Hypochromasia Slight; MCH 36.2 pg (25.0-35.0); MCHC 32.3 g/dL (31.0-37.0); MCV 111.9 fL (80.0-100.0); Mean Platelet Volume 8.8; Platelet Count 117 k/uL (150-450); RBC 3.69 m/uL (4.30-5.90); RDW 17.2 % (11.5-15.5); WBC 24.9 k/uL (3.8-10.6)
[2024-07-23 06:37] LABS: INR 1.4 (<1.2); Prothrombin Time 14.3 sec (10.0-12.5)
[2024-07-23 06:43] LABS: African American GFR (CKD) 16 (>60 ml/min/1.73 sqM); Anion Gap 10 mmol/L; Blood Urea Nitrogen 90 mg/dL (9-20); Calcium 8.8 mg/dL (8.4-10.2); Carbon Dioxide 22 mmol/L (22-30); Chloride 100 mmol/L (98-107); Glucose 95 mg/dL (74-99); Non-African American GFR(CKD) 14 (>60 ml/min/1.73 sqM); Potassium 5.3 mmol/L (3.5-5.1); Sodium 132 mmol/L (137-145)
[2024-07-23 07:40] LABS: Macrocytosis Marked
[2024-07-23 11:26] LABS: Appearance,Urine Turbid (Clear); Bacteria,Urine Many /hpf; Bilirubin,Urine 1+ (Negative); Blood,Urine Large (Negative); Color,Urine Dark Brown; Glucose,Urine (UA) Negative (Negative); Ketones,Urine Negative (Negative); Leukocyte Esterase,Urine Large (Negative); Nitrite,Urine Negative (Negative); PH, Urine 5.5 (5.0-8.0); Protein,Urine 2+ (Negative); RBC,Urine >182 /hpf (0-5); Specific Gravity,Urine 1.019 (1.001-1.035); Urobilinogen,Urine <2.0 mg/dL (<2.0); WBC,Urine 157 /hpf (0-5)
--- NOTE | 2024-07-23 12:02 | P.PN ---
Subjective Progress Note Date: 07/23/24 This is a 78-year-old male patient with massive fluid overload, ongoing difficulty with chronic kidney failure as the patient has developed an acute on top of chronic renal disease with extensive third spacing and anasarca and possibly a component of cardiorenal syndrome. 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 Baseline creatinine is around 1.5 back in March 2024. The patient presented to us with volume overload, acute on top of chronic diastolic heart failure with moderate mitral regurgitation. Patient also was diagnosed having an Enterococcus urinary tract infection currently on IV Unasyn. Initial rate, attempts to diurese this patient with Lasix have failed due to ongoing hypotension. The patient was started on midodrine 10 mg p.o. 4 times daily. Subsequently, I was asked to transfer this patient to the ICU for hemodynamic support and pressor use as the patient was going to be started on Lasix 5 mg infusion in combination with Za roxolyn 5 mg p.o. daily. Based on that, the patient was transferred to the ICU. Lasix s drip was started and the patient will be started also on norepinephrine for blood pressure support. He is currently awake and alert. Following commands. He is on oxygen at 2 L/min nasal cannula. His chest x-ray showing small bilateral pleural effusion and this is less x-ray that was done on 06/26/2024. Patient was evaluated today on 07/03/24, remains in the ICU, he was seen by Dr. Jp nance on consultation yesterday, he was placed on Lasix drip at 5 mg/h, making about 50 to 75 cc of urine per hour. Blood pressure is marginal he is requiring norepinephrine at 0.06 mcg/kg/min. Patient is not complaining of shortness of breath, he is on 2 L nasal cannula, he seems to be extremely swollen edematous and has anasarca. Nonetheless the patient is feeling better compared to yesterday. And seemsto be responding to the Lasix drip. WBC count is 8.4 hemoglobin 12.2 electrolytes are normal BUN is 92 creatinine 3.53., Relatively unchanged compared to yesterday.Patient's baseline creatinine on 06/26 was 2.19. Patient is receiving Unasyn for what seems to be acute urinary tract infection secondary to Enterococcus. Faecalis. Patient was evaluated today on 07/04/2024, remains in the ICU remains on Lasix drip and dose has been increased to 10 mg/h. Patient is requiring norepinephrine at 0.07 mcg/kg/min he is also on IV fluid at KVO. Antibiotics cooley he is on Unasyn for his UTI, and is also on Eliquis. Patient tells me that he is feeling better, breathing easier, and he continues to respond to Lasix but urine output did not improve much by increasing the dose of Lasix., WBC is 8.4 hemoglobin 11.9 basic metabolic profile is normal bicarb is 27 BUN is 95 creatinine 3.77 Gradually rising. His renal status is being addressed and followed by nephrology chest x-ray showed evidence of cardiomegaly and pulmonary vascular congestion. Patient remains on 2 L nasal cannula, and he is O2 satura tion is 97%. Blood pressure is marginal, his mean arterial pressure is 68, patient is requiring norepinephrine Patient today on 07/05/2024, patient is not doing too great today. Patient is getting worse, he is developing worsening hypotension and requiring now higher doses of norepinephrine and higher doses of vasopressin. Patient required lines including central line and arterial line, and these were done today. Urine output remains about 35 to 40 cc/h, in spite of Lasix at 10 mg/h. His renal functioning is getting worse creatinine is up to 3.9 today. Again the patient is requiring norepinephrine and we have added vasopressin, patient seems to be developing acute kidney injury with ATN and hypotension as well as cardiorenal syndrome. Nephrology is considering to proceed with renal replacement therapy since the patient continues to remain volume overloaded. And urine output is no t that great. His creatinine baseline in March was 1.5. Looking at his echocardiogram, patient has chronic diastolic congestive heart failure with moderate mitral regurgitation, and severe pulmonary hypertension. Patient is also receiving antibiotics for his right lower extremity cellulitis, in addition he has Enterococcus urinary tract infection addressed by infectious disease on the case.WBC count is 7.1 hemoglobin is 11.1 basic metabolic profile is normal bicarb is 23 BUN is 101 creatinine 3.94. Chest x-ray is showing worsening pleural effusion and pulmonary edema Reevaluate today on 07/06/2024, patient remains in the ICU, still on pressors requiring norepinephrine at 0.24 mcg/kg/min, patient did not require vasopressin yesterday. Still on midodrine. A right femoral dialysis catheter was placed yesterday by vascular surgery. Patient is supposed to be started on hemodialysis today. Clinically today, he seems to be feeling better compared to yesterday.Denies any cough wheezing or shortness of breath, patient feels generally weak. WBC count is 7.9 hemoglobin 11.8 electrolytes are normal BUN is 102 creatinine 4.31 patient remains on Lasix drip at 10 mg/h, and the plan is to hemodialyze today Patient was evaluated today on 07/07/2024, patient remains in the ICU on 2 L nasal cannula patient underwent hemodialysis yesterday and 2 L were removed. His BUN is 90 creatinine 4.13. Remains on Lasix drip at 10 mg/h he is still requiring norepinephrine at 0.21 mcg/kg/min, blood pressure remains marginal at best. Patient is still covered with Unasyn still on Eliquis, patient was placed on Lopressor at 100 mg p.o. or twice daily by cardiology his echocardiogram showed significant valvular heart disease, pulmonary hypertension, ejection fraction is 50 to 55%. Patient is complaining today of some bloating and abdominal discomfort, but no nausea no vomiting. No significant pain. WBC count today is 8.2 hemoglobin 11.3 electrolytes are normal BUN is 90 creatinine 4.13, chest x-ray showed mild pulmonary vascular congestion Patient was evaluated today on 07/08/2024, patient remains in the ICU still requiring pressors, he is on norepinephrine at 0.22 mcg/kg/min blood pressure remains marginal, patient is intermittently getting hemodialysis, remains on multiple cardiac meds but he is off Lasix drip at this point. Pulmonary cooley he is on 2 L nasal cannula, does not seem to be in distress. Chest x-ray today showed minimal right basilar atelectasis, no evidence of pulmonary edema. Apparently the patient did not tolerate hemodialysis treatment yesterday well, because of low blood pressure. WBC count is 9.3 hemoglobin 11.4 basic metabolic profile is normal BUN is 82 creatinine 3.49 Patient was seen today on 07/09/2024, patient remains in the ICU, remains on no repinephrine and he is intermittently on hemodialysis. Off Lasix drip. On 3 L nasal cannula, on norepinephrine 0.13 mcg/kg/min on midodrine on IV fluid at KVO. Patient is also on Eliquis. Urine output is about 25 to 40 cc/h. His CVP is 15 patient had 2 L removed by hemodialysis on 07/08 and his CVP today is ranging between 12-15. Pulmonary cooley is not in distress, however his blood pressure remains extremely low requiring pressors hence I cannot move the patient out of the ICU as long as he is on pressors The patient is seen today July 10, 2024 in follow-up in the intensive care unit. Awake and alert in no acute distress. Currently resting fairly comfortably in bed. He is maintaining good O2 saturations in the 90s on 2 L/min per nasal cannula. He is still requiring norepinephrine at 20 mcg/min. Normal saline at KVO. Urine culture was positive for Enterococcus faecalis. Blood cultures revealed no growth. White count 10.1. Hemoglobin 11.4. Sodium 133. Potassium 4.3. Bicarb 26. BUN 83. Creatinine 3.79. Glucose 104. He is continued on Lasix 60 mg every 12 hours. Anticoagulated with Eliquis. Remains on midodrine 10 mg 4 times daily. The patient is seen today July 11, 2024 in follow-up in the intensive care unit. He is currently resting in bed. Awake and alert in no acute distress. Currently undergoing hemodialysis. He is still requiring norepinephrine at 0.17 mcg/kg/min. He has normal saline at KVO. He is maintaining O2 saturation in the 90s on 2 L/min per nasal cannula. His TSH did come back abnormal at 6.87, cortisol level was 8.8. He will be initiated on Synthroid 75 mcg IV daily and Solu-Cortef 50 mg IV every 6 hours. Continued on midodrine. He remains on Lasix 60 mg IV every 12 hours. Anticoagulated with Eliquis. White count 8.4. Hemoglobin 11.1. Platelets 169. Sodium 133. Potassium 4.2. Bicarb 27. BUN 67. Creatinine 3.30. Glucose 102. The patient is seen today July 12, 2024 in follow-up in the intensive care unit. He is awake and alert in no acute distress. Currently receiving hemodialysis with another 2 L planned to be removed. He is continued on norepinephrine down to 17 mcg/min. He had been initiated on Synthroid and Solu- Cortef with improvement in his blood pressure. White count 7.3. Hemoglobin 10.8 . Platelets 151. Sodium 133. Potassium 4.2. Bicarb 27. BUN 66. Creatinine 3.31. Glucose 130. He remains on IV diuretics. Anticoagulated with Eliquis. Currently in a -3.7 L balance. The patient is seen today July 13, 2024 in follow-up in the intensive care unit. He is resting comfortably in bed. Awake and alert in no acute distress. Maintaining O2 saturations in the 90s on 2 L/min per nasal cannula. He has normal saline at 10 mL/h. He is still requiring norepinephrine at 14 mcg/min. He is continued on Synthroid and Solu-Cortef. White count 12.4. Hemoglobin 11.5. Platelets 236. Sodium 132. Potassium 4.0. Bicarb 28. BUN 65. Creatinine 2.97. Glucose 116. He remains on Lasix 60 mg IV every 12 hours. Currently in a positive balance. Plan is for hemodialysis again tomorrow. The patient is seen today July 14, 2024 in follow-up in the intensive care unit. He is currently awake and alert in no acute distress resting comfortably in bed. Maintaining good O2 saturations in the 90s on room air. He is currently receiving hemodialysis with a goal of 2 L to be removed today. He is still requiring norepinephrine at 7 mcg/min. He is continued on Lasix 60 mg srinivas ry 12 hours. He remains on Synthroid and Solu-Cortef. Also continued on midodrine. Urine culture was positive for Enterococcus faecalis. Blood cultures revealed no growth. White count 10.2. Hemoglobin 10.6. Platelets 182. Sodium 132. Potassium 4.2. Bicarb 26. BUN 79. Creatinine 3.85. Gl ucose 109. The patient is seen today July 15, 2024 in follow-up in the intensive care unit. He is resting comfortably in bed. Awake and alert in no acute distress. Maintaining good O2 saturations in the 90s on room air. He is still requiring norepinephrine currently at 12 mcg/min. He is continued on Solu-Cortef, Synthroid, midodrine. He remains on IV diuretics per nephrology. He received hemodialysis yesterday with 2 L removed. Chest x-ray revealed chronic changes without evidence of acute pulmonary process. He did have a right internal jugular hemodialysis catheter placed yesterday. Femoral catheter was removed. Urine culture was positive for Enterococcus faecalis. Blood cultures revealed no growth. White count 8.0. Hemoglobin 10.5. Platelets 185. Sodium 132. Potassium 4.2. Bicarb 26. BUN 67. Creatinine 3.46. Glucose 113. The patient is seen today July 16, 2024 in follow-up in the intensive care unit. He is awake and alert in no acute distress. Resting comfortably in bed. Maintaining good O2 saturations in the 90s on room air. His norepinephrine is currently off. He is continued on midodrine. He is anticoagulated with Eliquis. Plan is for hemodialysis tomorrow and to continue a Wednesday schedule. White count 9.4. Hemoglobin 10.5. Platelets 226. Sodium 131. Potassium 4.7. Bicarb 25. BUN 86. Creatinine 4.1. Glucose 114. He remains on a low-salt diet and 1500 cc fluid restriction. IV Lasix discontinued per nephrology. On 07/17/2024, the patient is being seen for a follow-up., Comfortable on room air oxygen. Undergoing hemodialysis. Direct the patient was episodes of hypotension and the patient was encountering during hemodialysis. This morning, he is off pressors and is undergoing dialysis without any major issues. Blood pressure is on the lower side. It is stable for now. He is on no pressors. Urine output is minimal. He remains on metoprolol at a dose of 100 mg twice a day and his rate is under adequate control in terms of atrial fibrillation and the patient remains on anticoagulation with Eliquis 2.5 mg p.o. twice a day. He is also on midodrine 10 mg 4 times daily. White cell count is at 8 with hemoglobin 10.7 and a platelet count of 184. BUN is 103 with a creatinine of 4.5 and a sodium is at 131. Potassium level is at 4.8. He is awake and alert and communicating. No other significant events overnight. Undergoing hemodialysis this morning. On 07/18/2024, the patient is being seen for a follow-up. The patient is doing well. Hemodynamically stable. The patient was able to complete his hemodialysis yesterday. No hypotension. The patient is currently on a telemetry unit and the patient has not required any pressors and the patient remains hemodynamically stable. Lopressor dose has been modified. The patient remains in a controlled atrial fibrillation. BUN is 84 with a creatinine of 3.7. Potassium is at 4.9. Bicarb is at 29. Hemoglobin is at 10.3 with a white cell count of 8.1. Medications remain unchanged. On 07/20/2024, the patient is being seen for a follow-up. The patient is doing well. No new complaints for now. Last hemodialysis session was yesterday and this was completed without any complications. The patient's A-fib remains under adequate control for now. No active bleeding from the right IJ permacath site. Urine output remains low. He remains on midodrine. He remains on Cortef this will be discontinued. Labs from today shows a white cell count of 12.9, hemoglobin 11.8 and a platelet count of 216. BUN is 89 with a creatinine of 3.6 and a sodium levels at 132. On 07/21/2024, the patient is undergoing hemodialysis. His blood pressure is stable. The patient was taken off the IV Solu-Cortef yesterday. He remains on metoprolol 50 mg p.o. twice daily. He remains in atrial fibrillation. Rate is controlled for now. He is tolerating dialysis reasonably well. No hemodynamic instability and the patient remains on room air oxygen with a pulse ox of 95%. No other significant events overnight. On 06/22/2024, patient is being seen in follow-up. The patient was transferred to the intensive. As the patient became hypotensive and he developed atrial fibrillation with rapid ventricular response. He was placed on a Cardizem drip at 5 mg an hour and currently is off the Cardizem. He also received a total of 1 L of IV fluid normal saline bolus. Subsequently, the patient was started on low-dose norepinephrine and currently norepinephrine is running at 0.03 mcg/kg/min. Last hemodialysis session was on 07/21/2024 and a total of 2.4 L of fluid was removed. He is currently on 3 days of oxygen by nasal cannula. Awake and alert and communicating. Afebrile. White cell count is 16 with a hemoglobin of 11 and a platelet count of 144. BUN is 80 with a creatinine of 3.6. Sodium levels at 133. No respiratory distress. He was taken off the IV hydrocortisone yesterday. On 07/23/2024, the patient is off pressors since 1 PM yesterday. He received a total of 1.5 L of IV fluids. Subsequently was taken off the pressors. Nevertheless, it was noted that the patient's white cell count today is on the rise and the patient's white cell count is currently up to 24.9. He does have a dialysis catheter. He also has a Monzon catheter in place. No nausea. No vomiting. No chest pain. No shortness of breath. His last hemodialysis session was on 07/21/2024. Serum cortisol level was at 37.6. Obviously, there is concerns for ongoing urinary tract infection contributing to his hypotension and leukocytosis. The patient remains on anticoagulation with Eliquis 2.5 mg twice a day. He is atrial fibrillation is still active. Slightly tachycardic and metoprolol was restarted at a dose of 50 mg p.o. twice a day. Rest of the medications remain unchanged. On his blood work, sodium is at 132, potassium is 5.3, BUN is 19 with a creatinine of 3.99. Objective - Vital Signs Vital signs: Vital Signs Temp 99.4 F 07/23/24 08:00 Pulse 112 H 07/23/24 08:45 Resp 32 H 07/23/24 08:45 BP 103/56 07/23/24 08:45 Pulse Ox 96 07/23/24 08:00 FiO2 21 07/22/24 04:00 Intake & Output 07/22/24 07/23/24 07/23/24 18:59 06:59 18:59 Intake Total 1221.974 50 10 Output Total 105 30 25 Balance 1116.974 20 -15 Weight 167.1 kg Intake: IV 580 50 10 KVO 0.9 NS 10 Sodium Chloride 0.9% 500 580 50 ml 500 ml @ 999 mls/hr IV .Q31M ONE Rx#:[id number] Intake, IV Titration 141.974 Amount Norepinephrine 4 mg In 141.974 Sodium Chloride 0.9% 250 ml @ 0.03 MCG/KG/MIN 18. 86 mls/hr IV .[id number] [facility] Rx#:[id number] Oral 500 Output: Urine 105 30 25 Other: Voiding Method Indwelling Catheter Indwelling Catheter # Bowel Movements 1 ABP, PAP, CO, CI - Last Documented Arterial Blood Pressure 106/46 - Exam GENERAL EXAM: Alert, 78-year-old male, resting in bed, on 3 L of oxygen by nasal cannula. No signs of any respiratory distress EYES: Normal reaction of pupils, equal size. NOSE: Clear with pink turbinates. THROAT: No erythema or exudates. NECK: No masses, no JVD. Right IJ hemodialysis catheter in place. CHEST: No chest wall deformity. LUNGS: Equal air entry with crackles in the right lung base. CVS: S1 and S2 normal with no audible murmur, regular rhythm. ABDOMEN: No hepatosplenomegaly, normal bowel sounds, no guarding or rigidity. SPINE: No scoliosis or deformity SKIN: No rashes CENTRAL NERVOUS SYSTEM: No focal deficits, tone is normal in all 4 extremities. EXTREMITIES: There is no peripheral edema. No clubbing, no cyanosis. Peripheral pulses are intact. - Labs CBC & Chem 7: 07/23/24 06:13 07/23/24 06:13 Labs: Abnormal Lab Results - Last 24 Hours (Table) 07/22/24 07/22/24 07/23/24 Range/Units 09:09 09:09 06:13 WBC 16.4 H 24.9 H (3.8-10.6) k/uL RBC 3.25 L 3.69 L (4.30-5.90) m/uL Hgb 11.0 L (13.0-17.5) gm/dL Hct 36.2 L (39.0-53.0) % MCV 111.3 H 111.9 H (80.0-100.0) fL MCH 36.2 H (25.0-35.0) pg MCHC 30.4 L (31.0-37.0) g/dL RDW 16.6 H 17.2 H (11.5-15.5) % Plt Count 144 L 117 L (150-450) k/uL Macrocytosis Marked A Marked A PT (10.0-12.5) sec INR (<1.2) Sodium 133 L (137-145) mmol/L Potassium (3.5-5.1) mmol/L BUN 80 H (9-20) mg/dL Creatinine 3.63 H (0.66-1.25) mg/dL Glucose 112 H (74-99) mg/dL Calcium 8.2 L (8.4-10.2) mg/dL Cortisol 37.6 H (3.1-22.4) UG/DL 07/23/24 07/23/24 Range/Units 06:13 06:13 WBC (3.8-10.6) k/uL RBC (4.30-5.90) m/uL Hgb (13.0-17.5) gm/dL Hct (39.0-53.0) % MCV (80.0-100.0) fL MCH (25.0-35.0) pg MCHC (31.0-37.0) g/dL RDW (11.5-15.5) % Plt Count (150-450) k/uL Macrocytosis PT 14.3 H (10.0-12.5) sec INR 1.4 H (<1.2) Sodium 132 L (137-145) mmol/L Potassium 5.3 H (3.5-5.1) mmol/L BUN 90 H (9-20) mg/dL Creatinine 3.99 H (0.66-1.25) mg/dL Glucose (74-99) mg/dL Calcium (8.4-10.2) mg/dL Cortisol (3.1-22.4) UG/DL Assessment and Plan Plan: Acute on chronic diastolic congestive heart failure with hypotension, recovered Hypotension, could be hypovolemic. Atrial fibrillation with rapid ventricular response also contributed to this hypotension. The patient remains in A-fib with a controlled rate. He was given a total of 1.5 L of IV fluids and the patient was taken off the pressors as of 1 PM yesterday. Tachycardia with atrial fibrillation Leukocytosis, rule out recurrent infection/sepsis Acute on chronic stage IIIb kidney disease with massive volume overload and initiated on hemodialysis, last hemodialysis session was on 07/21/2024 with 2.4 L of ultrafiltration. Hyperlipidemia Chronic atrial fibrillation, maintained on anticoagulation with Eliquis Enterococcus faecalis urinary tract infection completed Unasyn. Severe pulmonary hypertension Morbid obesity Gout History of obstructive sleep apnea, not tolerant to CPAP therapy Previous history of WPW and SVT Osteoarthritis Previous history of DVT of lower extremities Glaucoma Plan: Patient is currently off pressors Do another sepsis workup with a blood and urine cultures and a UA, will utilize antibiotic coverage as a broad-spectrum empiric coverage should he develop another hypotension episode, pending cultures Check baseline serum cortisol level was still elevated Keep the dose of metoprolol to 50 mg p.o. twice a day, once the patient's blood pressure normalizes Continue Synthroid Continue midodrine Nephrology on the case and last hemodialysis session was on 07/21/2024 Hemodialysis Wednesday Keep the patient on telemetry unit
--- NOTE | 2024-07-23 13:08 | P.PN ---
Subjective Progress Note Date: 07/23/24 Acute on chronic right-sided congestive heart failure with chronic hypotension Patient is a 78-year-old male was admitted to hospital due to fluid overload and history of chronic kidney disease acute on chronic due to mild cardiorenal syndrome., Baseline creatinine level 1.5. Patient was diagnosed with Enterococcus urinary tract infection currently on Unasyn. Unable to diurese due to hypotension. Patient was started on midodrine and subsequently transferred to MICU due to hypotension. He was started on Lasix drip and Zaroxolyn p.o. and also was requiring norepinephrine for pressor support. 07/06/2024 Patient remains in MICU. Awake alert and oriented x 3. Currently lying in the bed. Requiring pressor support with norepinephrine and is also being continued on midodrine. Nephrology is planning for hemodialysis and right femoral Jaron catheter was placed by vascular surgery. Otherwise patient denied any chest pain. No worsening shortness of breath. Chest x-ray showed cardiomegaly, pulmonary vascular congestion and bilateral pleural effusions. Correlate with BNP for CHF. Laboratory data showed WBC 7.9 hemoglobin 11.8 and platelets 198, sodium 135 potassium 4.3 chloride 99 bicarb is 26, BUN 102 and creatinine 4.31 and calcium 8.8. 07/07/2024 Patient is in MICU. Awake alert and oriented x 3. Currently requiring 2 L oxygen via nasal cannula. Chest x-ray showed mild pulmonary vascular congestion. Left PICC in the appropriate position. Patient was initiated on hemodialysis on 07/06/2024 with 2 L ultrafiltration. Patient is maintained on Lasix drip and is also requiring norepinephrine for pressor support. Otherwise denied any abdominal pain. No nausea or vomiting. Did not have any bowel meant last few days. Otherwise patient is afebrile. No cough or sputum production. Laboratory data showed WBC 8.2 hemoglobin 11.3 and platelets 150 sodium 135 potassium 4.3 chloride 100 bicarb is 26 BUN 19 creatinine 4.13 and blood sugar 105 and calcium 8.7. Patient is on Unasyn for Enterococcus faecalis UTI. 07/08. Patient seen and examined. Blood work done this morning showed WBC 9.3, hemoglobin 12.4, platelet count 136, sodium 133, potassium 4.2, BUN 82, creatinine 3.49. States he feels better. Started on dialysis on 07/06. 07/09. Patient seen and examined. Blood work done this morning showed . WBC 8.4, hemoglobin 11.2, platelet count 133, sodium 133, potassium 4.1, BUN 74, creatinine 2.95. States he feels much better. He continues to be on pressors. Swelling of lower extremities is improved The patient is seen today July 10, 2024 in follow-up in the intensive care unit. Awake and alert in no acute distress. Currently resting fairly comfortably in bed. He is maintaining good O2 saturations in the 90s on 2 L/min per nasal cannula. He is still requiring norepinephrine at 20 mcg/min. Normal saline at KVO. Urine culture was positive for Enterococcus faecalis. Blood cultures revealed no growth. White count 10.1. Hemoglobin 11.4. Sodium 133. Potassium 4.3. Bicarb 26. BUN 83. Creatinine 3.79. Glucose 104. He is co ntinued on Lasix 60 mg every 12 hours. Anticoagulated with Eliquis. Remains on midodrine 10 mg 4 times daily. The patient is seen today July 11, 2024 in follow-up in the intensive care unit. He is currently resting in bed. Awake and alert in no acute distress. Currently undergoing hemodialysis. He is still requiring norepinephrine at 0.17 mcg/kg/min. He has normal saline at KVO. He is maintaining O2 saturation in the 90s on 2 L/min per nasal cannula. His TSH did come back abnormal at 6.87, cortisol level was 8.8. He will be initiated on Synthroid 75 mcg IV daily and Solu-Cortef 50 mg IV every 6 hours. Continued on midodrine. He remains on Lasix 60 mg IV every 12 hours. Anticoagulated with Eliquis. White count 8.4. Hemoglobin 11.1. Platelets 169. Sodium 133. Potassium 4.2. Bicarb 27. BUN 67. Creatinine 3.30. Glucose 102. The patient is seen today July 12, 2024 in follow-up in the intensive care unit. He is awake and alert in no acute distress. Currently receiving hemodialysis with another 2 L planned to be removed. He is continued on norepinephrine down to 17 mcg/min. He had been initiated on Synthroid and Solu- Cortef with improvement in his blood pressure. White count 7.3. Hemoglobin 10.8. Platelets 151. Sodium 133. Potassium 4.2. Bicarb 27. BUN 66. Creatinine 3.31. Glucose 130. He remains on IV diuretics. Anticoagulated with Eliquis. Currently in a -3.7 L balance. The patient is seen today July 13, 2024 in follow-up in the intensive care unit. He is resting comfortably in bed. Awake and alert in no acute distress. Maintaining O2 saturations in the 90s on 2 L/min per nasal cannula. He has normal saline at 10 mL/h. He is still requiring norepinephrine at 14 mcg/min. He is continued on Synthroid and Solu-Cortef. White count 12.4. Hemoglobin 11.5. Platelets 236. Sodium 132. Potassium 4.0. Bicarb 28. BUN 65. Creat inine 2.97. Glucose 116. He remains on Lasix 60 mg IV every 12 hours. Currently in a positive balance. Plan is for hemodialysis again tomorrow. The patient is seen today July 14, 2024 in follow-up in the intensive care unit. He is currently awake and alert in no acute distress resting comfortably in bed. Maintaining good O2 saturations in the 90s on room air. He is currently receiving hemodialysis with a goal of 2 L to be removed today. He is still requiring norepinephrine at 7 mcg/min. He is continued on Lasix 60 mg every 12 hours. He remains on Synthroid and Solu-Cortef. Also continued on midodrine. Urine culture was positive for Enterococcus faecalis. Blood cultures revealed no growth. White count 10.2. Hemoglobin 10.6. Platelets 182. Sodium 132. Potassium 4.2. Bicarb 26. BUN 79. Creatinine 3.85. Glucose 109. The patient is seen today July 15, 2024 in follow-up in the intensive care unit. He is resting comfortably in bed. Awake and alert in no acute distress. Maintaining good O2 saturations in the 90s on room air. He is still requiring norepinephrine currently at 12 mcg/min. He is continued on Solu-Cortef, Synthroid, midodrine. He remains on IV diuretics per nephrology. He received hemodialysis yesterday with 2 L removed. Chest x-ray revealed chronic changes without evidence of acute pulmonary process. He did have a right internal jugular hemodialysis catheter placed yesterday. Femoral catheter was removed. Urine culture was positive for Enterococcus faecalis. Blood cultures revealed no growth. White count 8.0. Hemoglobin 10.5. Platelets 185. Sodium 132. Potassium 4.2. Bicarb 26. BUN 67. Creatinine 3.46. Glucose 113. The patient is seen today July 16, 2024 in follow-up in the intensive care unit. He is awake and alert in no acute distress. Resting comfortably in bed. Maintaining good O2 saturations in the 90s on room air. His norepinephrine is currently off. He is continued on midodrine. He is anticoagulated with Eliquis. Plan is for hemodialysis tomorrow and to continue a Wednesday schedule. White count 9.4. Hemoglobin 10.5. Platelets 226. Sodium 131. Potassium 4.7. Bicarb 25. BUN 86. Creatinine 4.1. Glucose 114. He remains on a low-salt diet and 1500 cc fluid restriction. IV Lasix discontinued per nephrology. On 07/17/2024, the patient is being seen for a follow-up., Comfortable on room air oxygen. Undergoing hemodialysis. Direct the patient was episodes of hypot ension and the patient was encountering during hemodialysis. This morning, he is off pressors and is undergoing dialysis without any major issues. Blood pressure is on the lower side. It is stable for now. He is on no pressors. Urine output is minimal. He remains on metoprolol at a dose of 100 mg twice a day and his rate is under adequate control in terms of atrial fibrillation and the patient remains on anticoagulation with Eliquis 2.5 mg p.o. twice a day. He is also on midodrine 10 mg 4 times daily. White cell count is at 8 with hemoglobin 10.7 and a platelet count of 184. BUN is 103 with a creatinine of 4.5 and a sodium is at 131. Potassium level is at 4.8. He is awake and alert and communicating. No other significant events overnight. Undergoing hemodialysis this morning. On 07/18/2024, the patient is being seen for a follow-up. The patient is doing well. Hemodynamically stable. The patient was able to complete his hemodialysis yesterday. No hypotension. The patient is currently on a telemetry unit and the patient has not required any pressors and the patient r emains hemodynamically stable. Lopressor dose has been modified. The patient remains in a controlled atrial fibrillation. BUN is 84 with a creatinine of 3.7. Potassium is at 4.9. Bicarb is at 29. Hemoglobin is at 10.3 with a white cell count of 8.1. Medications remain unchanged. On 07/20/2024, the patient is being seen for a follow-up. The patient is doing well. No new complaints for now. Last hemodialysis session was yesterday and this was completed without any complications. The patient's A-fib remains under adequate control for now. No active bleeding from the right IJ permacath site. Urine output remains low. He remains on midodrine. He remains on Cortef this will be discontinued. Labs from today shows a white cell count of 12.9, hemoglobin 11.8 and a platelet count of 216. BUN is 89 with a creatinine of 3.6 and a sodium levels at 132. 07/22. Patient seen and examined. Patient was transferred to ICU for hypotension and A-fib with RVR. Currently patient is off the the Cardizem drip. Currently being weaned off the Levophed. . Patient seen and examined. Patient blood pressure has been soft, currently off the Levophed but on midodrine. REVIEW OF SYSTEMS: CONSTITUTIONAL: No fever, no malaise,. CARDIOVASCULAR: No chest pain, no palpitations, no syncope. PULMONARY: No shortness of breath, no cough, GASTROINTESTINAL: No diarrhea, no nausea, no vomiting, no abdominal pain. NEUROLOGICAL: No headaches, no weakness, PHYSICAL EXAMINATION: GENERAL: The patient is alert and oriented x3, not in any acute distress. Ill looking HEENT: Pupils are round and equally reacting to light. EOMI. No scleral icterus. No conjunctival pallor. Normocephalic, atraumatic. No pharyngeal erythema. No thyromegaly. CARDIOVASCULAR: S1 and S2 present. No murmurs, rubs, or gallops. PULMONARY: Chest is clear to auscultation, no wheezing or crackles. ABDOMEN: Soft, nontender, nondistended, normoactive bowel sounds. No palpable organomegaly. MUSCULOSKELETAL: No joint swelling or deformity. EXTREMITIES: No cyanosis, clubbing, or pedal edema. NEUROLOGICAL: Gross neurological examination did not reveal any focal deficits. SKIN: Bruising of right shoulder Assessment and plan Acute on chronic HFpEF mainly due to right heart failure. Acute on chronic kidney disease stage IIIb with volume overload. Possible cardiorenal. Requiring hemodialysis initiated on 07/06/2024 Permanent atrial fibrillation on anticoagulation with Coumadin transition to Eliquis Supratherapeutic INR level on admission Valvular heart disease with moderate MR, moderate to severe pulmonary hypertension Obstructive sleep apnea not tolerating CPAP History of WPW and SVT Hyperlipidemia Hypertension History of DVT Dilated thoracic aorta History of gout Osteoarthritis Enterococcus urinary tract infection currently on Unasyn Morbid obesity BMI 53.0 Monitor vital signs Monitor CBC Monitor CMP Continue telemetry monitoring Strict I's and O's, daily weights Continue midodrine Continue Lopressor, Eliquis Continue dialysis per nephrology Nephrology following ICU following Cardiology following Labs and medication were reviewed.. Continue same treatment. Continue with symptomatic treatment. Resume home medication. Monitor labs and vitals. DVT and GI prophylaxis. Further recommendations as per clinical course of the patient Dictation was produced using [employer] dictation software. please excuse any grammatical, word or spelling errors. Objective - Vital Signs Vital signs: Vital Signs Temp 99.1 F 07/23/24 12:00 Pulse 120 H 07/23/24 12:00 Resp 21 07/23/24 12:00 BP 90/70 07/23/24 12:00 Pulse Ox 94 L 07/23/24 12:00 FiO2 21 07/22/24 04:00 Intake & Output 07/22/24 07/23/24 07/23/24 18:59 06:59 18:59 Intake Total 1221.974 50 170 Output Total 105 30 35 Balance 1116.974 20 135 Weight 167.1 kg Intake: IV 580 50 50 KVO 0.9 NS 50 Sodium Chloride 0.9% 500 580 50 ml 500 ml @ 999 mls/hr IV .Q31M ONE Rx#:[id number] Intake, IV Titration 141.974 Amount Norepinephrine 4 mg In 141.974 Sodium Chloride 0.9% 250 ml @ 0.03 MCG/KG/MIN 18. 86 mls/hr IV .[id number] [facility] Rx#:[id number] Oral 500 120 Output: Urine 105 30 35 Other: Voiding Method Indwelling Catheter Indwelling Catheter Indwelling Catheter # Bowel Movements 1 ABP, PAP, CO, CI - Last Documented Arterial Blood Pressure 106/46 - Labs CBC & Chem 7: 07/23/24 06:13 07/23/24 06:13 Labs: Abnormal Lab Results - Last 24 Hours (Table) 10/07/23/24 07/23/24 Range/Units 09:09 06:13 06:13 WBC 24.9 H (3.8-10.6) k/uL RBC 3.69 L (4.30-5.90) m/uL MCV 111.9 H (80.0-100.0) fL MCH 36.2 H (25.0-35.0) pg RDW 17.2 H (11.5-15.5) % Plt Count 117 L (150-450) k/uL Macrocytosis Marked A PT 14.3 H (10.0-12.5) sec INR 1.4 H (<1.2) Sodium (137-145) mmol/L Potassium (3.5-5.1) mmol/L BUN (9-20) mg/dL Creatinine (0.66-1.25) mg/dL Cortisol 37.6 H (3.1-22.4) UG/DL Urine Protein (Negative) Urine Blood (Negative) Urine Bilirubin (Negative) Ur Leukocyte Esterase (Negative) Urine RBC (0-5) /hpf Urine WBC (0-5) /hpf Urine Bacteria (None) /hpf 07/23/24 07/23/24 Range/Units 06:13 10:30 WBC (3.8-10.6) k/uL RBC (4.30-5.90) m/uL MCV (80.0-100.0) fL MCH (25.0-35.0) pg RDW (11.5-15.5) % Plt Count (150-450) k/uL Macrocytosis PT (10.0-12.5) sec INR (<1.2) Sodium 132 L (137-145) mmol/L Potassium 5.3 H (3.5-5.1) mmol/L BUN 90 H (9-20) mg/dL Creatinine 3.99 H (0.66-1.25) mg/dL Cortisol (3.1-22.4) UG/DL Urine Protein 2+ H (Negative) Urine Blood Large H (Negative) Urine Bilirubin 1+ H (Negative) Ur Leukocyte Esterase Large H (Negative) Urine RBC >182 H (0-5) /hpf Urine WBC 157 H (0-5) /hpf Urine Bacteria Many H (None) /hpf
--- NOTE | 2024-07-23 22:29 | P.PN ---
Subjective Patient is seen for follow-up for acute kidney injury and chronic kidney disease. Started on hemodialysis on 07/06/2024 due to worsening volume status. Patient was transferred back to the ICU due to hypotension. S/p hemodialysis on 07/21/2024 with UF of 2 L. Solu-Cortef was discontinued 3 days ago. Repeat cortisol level is 37.6 Permacath site continues to have oozing of blood. Status post DDAVP x 2 Objective - Vital Signs Vital signs: Vital Signs Temp 98.8 F 07/23/24 20:00 Pulse 87 07/23/24 22:00 Resp 14 07/23/24 22:00 BP 95/78 07/23/24 22:00 Pulse Ox 95 07/23/24 22:00 FiO2 21 07/22/24 04:00 Intake & Output 07/23/24 07/23/24 07/24/24 06:59 18:59 06:59 Intake Total 50 480 30 Output Total 30 55 5 Balance 20 425 25 Weight 167.1 kg Intake: IV 50 120 30 KVO 0.9 NS 120 30 Sodium Chloride 0.9% 500 50 ml 500 ml @ 999 mls/hr IV .Q31M [facility] Rx#:[id number] Oral 360 Output: Urine 30 55 5 Other: Voiding Method Indwelling Catheter Indwelling Catheter ABP, PAP, CO, CI - Last Documented Arterial Blood Pressure 106/46 - Exam Patient is awake, comfortable, no acute distress. Examination of the heart S1 and S2 Examination of the lungs decreased breath sounds at the bases Abdomen is soft obese nontender Examination of lower extremities shows edema 1+ bilaterally, improved. Significant wrinkling of the skin of the legs noted. PIPEFITTER exam grossly intact - Labs CBC & Chem 7: 07/23/24 06:13 07/23/24 06:13 Labs: Abnormal Lab Results - Last 24 Hours (Table) 07/23/24 07/23/24 07/23/24 Range/Units 06:13 06:13 06:13 WBC 24.9 H (3.8-10.6) k/uL RBC 3.69 L (4.30-5.90) m/uL MCV 111.9 H (80.0-100.0) fL MCH 36.2 H (25.0-35.0) pg RDW 17.2 H (11.5-15.5) % Plt Count 117 L (150-450) k/uL Macrocytosis Marked A PT 14.3 H (10.0-12.5) sec INR 1.4 H (<1.2) Sodium 132 L (137-145) mmol/L Potassium 5.3 H (3.5-5.1) mmol/L BUN 90 H (9-20) mg/dL Creatinine 3.99 H (0.66-1.25) mg/dL Urine Protein (Negative) Urine Blood (Negative) Urine Bilirubin (Negative) Ur Leukocyte Esterase (Negative) Urine RBC (0-5) /hpf Urine WBC (0-5) /hpf Urine Bacteria (None) /hpf 07/23/24 Range/Units 10:30 WBC (3.8-10.6) k/uL RBC (4.30-5.90) m/uL MCV (80.0-100.0) fL MCH (25.0-35.0) pg RDW (11.5-15.5) % Plt Count (150-450) k/uL Macrocytosis PT (10.0-12.5) sec INR (<1.2) Sodium (137-145) mmol/L Potassium (3.5-5.1) mmol/L BUN (9-20) mg/dL Creatinine (0.66-1.25) mg/dL Urine Protein 2+ H (Negative) Urine Blood Large H (Negative) Urine Bilirubin 1+ H (Negative) Ur Leukocyte Esterase Large H (Negative) Urine RBC >182 H (0-5) /hpf Urine WBC 157 H (0-5) /hpf Urine Bacteria Many H (None) /hpf Assessment and Plan Assessment: 1. Acute kidney injury secondary to ATN secondary to hypotension and cardiorena l syndrome. Started on hemodialysis on 07/06/2024 due to worsening renal function and persistent volume overload. No hydronephrosis noted on ultrasound. Trace protein on UA. Patient has right IJ permacath 2. 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 Creatinine 1.5 in March 2024. 3. Acute on chronic diastolic CHF and moderate mitral consultation, severe tricuspid regurgitation and pulmonary hypertension. 4. Volume overload. Improved with dialysis and ultrafiltration. 5. Right lower extremity cellulitis and Enterococcus UTI on antibiotics. ID following. 6. Hypervolemic hyponatremia. Improved 7. Bleeding at the site of IJ PermCath, improved Plan: hemodialysis on Wednesday schedule Repeat DDAVP in a.m. if bleeding continues. Continue your probability repeat labs in a.m.
[2024-07-24 05:20] LABS: African American GFR (CKD) 14 (>60 ml/min/1.73 sqM); Anion Gap 11 mmol/L; Calcium 8.6 mg/dL (8.4-10.2); Carbon Dioxide 19 mmol/L (22-30); Chloride 101 mmol/L (98-107); Glucose 86 mg/dL (74-99); Non-African American GFR(CKD) 12 (>60 ml/min/1.73 sqM); Sodium 131 mmol/L (137-145)
[2024-07-24 05:25] LABS: Blood Urea Nitrogen 106 mg/dL (9-20)
[2024-07-24 05:30] LABS: Anisocytosis Slight; HCT 32.2 % (39.0-53.0); HGB 10.7 gm/dL (13.0-17.5); MCH 35.8 pg (25.0-35.0); MCHC 33.2 g/dL (31.0-37.0); Macrocytosis Marked; Mean Platelet Volume 9.1; Platelet Count 126 k/uL (150-450); RBC 2.98 m/uL (4.30-5.90); RDW 16.5 % (11.5-15.5); WBC 13.4 k/uL (3.8-10.6)
--- NOTE | 2024-07-24 08:33 | P.PN ---
Subjective Progress Note Date: 07/24/24 This is a 78-year-old male who originally presented to the emergency department after a fall at home, reportedly his knee gave out. Patient also complained of shortness of breath and feels poorly overall. Patient became hypotensive and was transferred to the ICU. Creatinine remains elevated and he has been on Lasix drip. Patient lives with his at home, who he cares for. Patient seen this morning resting comfortably in bed. He is still hypotensive this morning. Creatinine today is 3.77. 07/10/2024 Patient was started on hemodialysis on 07/06. He is currently off of lasix drip but still on pressors. He is seen this morning laying in bed. He reports he is more fatigued today. 07/11/2024 Patient seen and evaluated laying in bed this morning. He is still on Levophed. Creatinine today is 3.3. He does appear more fatigued today. He did have dialysis yesterday. 07/13/2024 Patient seen and evaluated laying in bed this morning. He still remains on Levophed. He had dialysis yesterday. Creatinine today is 2.97. Patient appears to be in better spirits today. 07/17/2024 Patient seen and evaluated laying in bed this morning eating breakfast. He is currently off of Levophed and pressure is holding. Dialysis is now on a Wednesday schedule. Creatinine is 4.52 today. 07/24/2024 Patient seen and evaluated resting comfortably in bed this morning. He was back on pressors over the weekend but is currently off of pressors and maintained on midodrine. Plan is for dialysis today. Objective - Vital Signs Vital signs: Vital Signs Temp 98.9 F 07/24/24 04:00 Pulse 99 07/24/24 07:00 Resp 15 07/24/24 07:00 BP 86/62 07/24/24 07:00 Pulse Ox 94 L 07/24/24 07:00 FiO2 21 07/22/24 04:00 Intake & Output 07/23/24 07/24/24 07/24/24 18:59 06:59 18:59 Intake Total 480 110 10 Output Total 55 35 0 Balance 425 75 10 Weight 166 kg Intake: IV 120 110 10 KVO 0.9 NS 120 110 10 Oral 360 Output: Urine 55 35 0 Other: Voiding Method Indwelling Catheter Indwelling Catheter ABP, PAP, CO, CI - Last Documented Arterial Blood Pressure 106/46 - Constitutional General appearance: Present: cooperative, no acute distress - EENT Eyes: Present: PERRLA - Neck Neck: Present: normal ROM. Absent: lymphadenopathy, rigidity - Respiratory Respiratory: bilateral: CTA - Cardiovascular Rhythm: irregularly irregular - Gastrointestinal General gastrointestinal: Present: soft. Absent: tenderness - Integumentary Integumentary: Present: normal, normal turgor - Musculoskeletal Musculoskeletal: Present: generalized weakness - Psychiatric Psychiatric: Present: A&O x's 3 - Labs CBC & Chem 7: 07/24/24 04:25 07/24/24 04:25 Labs: Abnormal Lab Results - Last 24 Hours (Table) 07/23/24 07/24/24 07/24/24 Range/Units 10:30 04:25 04:25 WBC 13.4 H (3.8-10.6) k/uL RBC 2.98 L (4.30-5.90) m/uL Hgb 10.7 L (13.0-17.5) gm/dL Hct 32.2 L (39.0-53.0) % MCV 108.0 H (80.0-100.0) fL MCH 35.8 H (25.0-35.0) pg RDW 16.5 H (11.5-15.5) % Plt Count 126 L (150-450) k/uL Macrocytosis Marked A Sodium 131 L (137-145) mmol/L Potassium 6.0 H (3.5-5.1) mmol/L Carbon Dioxide 19 L (22-30) mmol/L BUN 106 H* (9-20) mg/dL Creatinine 4.49 H (0.66-1.25) mg/dL Urine Protein 2+ H (Negative) Urine Blood Large H (Negative) Urine Bilirubin 1+ H (Negative) Ur Leukocyte Esterase Large H (Negative) Urine RBC >182 H (0-5) /hpf Urine WBC 157 H (0-5) /hpf Urine Bacteria Many H (None) /hpf Assessment and Plan (1) Hypotension Current Visit: Yes Status: Acute Code(s): I95.9 - HYPOTENSION, UNSPECIFIED SNOMED Code(s): 76721135 (2) Weakness Current Visit: Yes Status: Acute Code(s): R53.1 - WEAKNESS SNOMED Code(s): 08565134 (3) Cellulitis Current Visit: Yes Status: Acute Code(s): L03.90 - CELLULITIS, UNSPECIFIED SNOMED Code(s): 152547396 (4) Acute kidney injury Current Visit: Yes Status: Acute Code(s): N17.9 - ACUTE KIDNEY FAILURE, UNSPECIFIED SNOMED Code(s): 44543983 (5) Acute on chronic heart failure Current Visit: Yes Status: Acute Code(s): I50.9 - HEART FAILURE, UNSPECIFIED SNOMED Code(s): 652246404 (6) Hyponatremia Current Visit: Yes Status: Acute Code(s): E87.1 - HYPO-OSMOLALITY AND HYPONATREMIA SNOMED Code(s): 03517307 Plan: Check CBC and CMP in the morning. Appreciate multiple consultants. Patient seen and evaluated by nurse practitioner, physician in agreement with plan
--- NOTE | 2024-07-24 10:16 | P.PN ---
Subjective Patient is seen in follow-up for acute kidney injury on chronic kidney disease. Started on hemodialysis July 06, 2024. Has permacath. Tolerating dialysis well. Vital signs are stable. General: No acute distress. HEENT: Head exam is unremarkable. On room air. LUNGS: No audible rhonchi or wheezes. HEART: Rate and Rhythm are regular. ABDOMEN: Obese, nontender. EXTREMITITES: 1+ edema. Lower extremities wrapped. Objective - Vital Signs Vital signs: Vital Signs Temp 98.9 F 07/24/24 04:00 Pulse 99 07/24/24 07:00 Resp 15 07/24/24 07:00 BP 86/62 07/24/24 07:00 Pulse Ox 94 L 07/24/24 07:00 FiO2 21 07/22/24 04:00 Intake & Output 07/23/24 07/24/24 07/24/24 18:59 06:59 18:59 Intake Total 480 110 10 Output Total 55 35 0 Balance 425 75 10 Weight 166 kg Intake: IV 120 110 10 KVO 0.9 NS 120 110 10 Oral 360 Output: Urine 55 35 0 Other: Voiding Method Indwelling Catheter Indwelling Catheter ABP, PAP, CO, CI - Last Documented Arterial Blood Pressure 106/46 - Labs CBC & Chem 7: 07/24/24 04:25 07/24/24 04:25 Labs: Abnormal Lab Results - Last 24 Hours (Table) 07/23/24 07/24/24 07/24/24 Range/Units 10:30 04:25 04:25 WBC 13.4 H (3.8-10.6) k/uL RBC 2.98 L (4.30-5.90) m/uL Hgb 10.7 L (13.0-17.5) gm/dL Hct 32.2 L (39.0-53.0) % MCV 108.0 H (80.0-100.0) fL MCH 35.8 H (25.0-35.0) pg RDW 16.5 H (11.5-15.5) % Plt Count 126 L (150-450) k/uL Macrocytosis Marked A Sodium 131 L (137-145) mmol/L Potassium 6.0 H (3.5-5.1) mmol/L Carbon Dioxide 19 L (22-30) mmol/L BUN 106 H* (9-20) mg/dL Creatinine 4.49 H (0.66-1.25) mg/dL Urine Protein 2+ H (Negative) Urine Blood Large H (Negative) Urine Bilirubin 1+ H (Negative) Ur Leukocyte Esterase Large H (Negative) Urine RBC >182 H (0-5) /hpf Urine WBC 157 H (0-5) /hpf Urine Bacteria Many H (None) /hpf Microbiology - Last 24 Hours (Table) 07/23/24 10:39 Blood Culture Gram Stain - Preliminary Blood Blood Culture - Preliminary Molecular ID Assessment and Plan Plan: Assessment: 1. Acute kidney injury secondary to ATN secondary to hypotension and ca rdiorenal syndrome. Creatinine up to 4.3 dated July 06, 2024. Started on hemodialysis July 06, 2024 via femoral dialysis catheter. Now has permacath. No hydronephrosis noted on ultrasound. Trace protein on UA. 2. 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 Creatinine 1.5 in March 2024. 3. Acute on chronic diastolic CHF and moderate mitral consultation, severe tricuspid regurgitation and pulmonary hypertension. 4. Volume overload. Improved with diuresis and ultrafiltration. 5. MRSA bacteremia. ID following. 6. Hypervolemic hyponatremia. Stable. 7. Hyperphosphatemia secondary to acute kidney injury. Phosphorus level 5.0 dated July 12, 2024. On Renvela. Plan: Currently seen while undergoing hemodialysis. Maintain on Wednesday schedule. IV DDAVP x 1 dose again today. Oozing from the permacath site improved. Low-salt diet and 1500 cc fluid restriction. Maintain midodrine. Avoid nephrotoxins. Continue to monitor renal function and urine output.
--- NOTE | 2024-07-24 10:58 | P.PN ---
Subjective Progress Note Date: 07/24/24 Principal diagnosis: Acute on chronic right-sided congestive heart failure with chronic hypotension This is a 78-year-old male patient with massive fluid overload, ongoing diffic ulty with chronic kidney failure as the patient has developed an acute on top of chronic renal disease with extensive third spacing and anasarca and possibly a component of cardiorenal syndrome. 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 Baseline creatinine is around 1.5 back in March 2024. The patient presented to us with volume overload, acute on top of chronic diastolic heart failure with moderate mitral regurgitation. Patient also was diagnosed having an Enterococcus urinary tract infection currently on IV Unasyn. Initial rate, attempts to diurese this patient with Lasix have failed due to ongoing hypotension. The patient was started on midodrine 10 mg p.o. 4 times daily. Subsequently, I was asked to transfer this patient to the ICU for hemodynamic support and pressor use as the patient was going to be started on Lasix 5 mg infusion in combination with Zaroxolyn 5 mg p.o. daily. Based on that, the patient was transferred to the ICU. Lasix s drip was started and the patient will be started also on norepinephrine for blood pressure support. He is currently awake and alert. Following commands. He is on oxygen at 2 L/min nasal cannula. His chest x-ray showing small bilateral pleural effusion and this is less x-ray that was done on 06/26/2024. On 07/21/2024, the patient is undergoing hemodialysis. His blood pressure is stable. The patient was taken off the IV Solu-Cortef yesterday. He remains on metoprolol 50 mg p.o. twice daily. He remains in atrial fibrillation. Rate is controlled for now. He is tolerating dialysis reasonably well. No hemodynamic instability and the patient remains on room air oxygen with a pulse ox of 95%. No other significant events overnight. On 07/22/2024, patient is being seen in follow-up. The patient was transferred to the intensive. As the patient became hypotensive and he developed atrial fibrillation with rapid ventricular response. He was placed on a Cardizem drip at 5 mg an hour and currently is off the Cardizem. He also received a total of 1 L of IV fluid normal saline bolus. Subsequently, the patient was started on low-dose norepinephrine and currently norepinephrine is running at 0.03 mcg/kg/min. Last hemodialysis session was on 07/21/2024 and a total of 2.4 L of fluid was removed. He is currently on 3 days of oxygen by nasal cannula. Awake and alert and communicating. Afebrile. White cell count is 16 with a hemoglobin of 11 and a platelet count of 144. BUN is 80 with a creatinine of 3.6. Sodium levels at 133. No respiratory distress. He was taken off the IV hydrocortisone yesterday. Patient was seen today on 07/24/2024, patient is in the ICU, receiving hemodialysis during my evaluation, not requiring any pressors, patient received full course of treatment for his cellulitis and UTI secondary to Enterococcus faecalis, patient is being followed by infectious disease. Repeat blood cultures today are positive for gram-positive cocci in clusters suspected MRSA, infectious disease will be notified and may have to go back on antibio tics/vancomycin. CBC is 13.4 hemoglobin 10.7. Electrolytes are normal except for potassium of 6 which will be corrected after hemodialysis today. BUN is 106 creatinine 4.49 Objective - Vital Signs Vital signs: Vital Signs Temp 98.2 F 07/24/24 08:00 Pulse 130 H 07/24/24 10:00 Resp 26 H 07/24/24 10:00 BP 104/44 07/24/24 10:00 Pulse Ox 97 07/24/24 10:00 FiO2 21 07/22/24 04:00 Intake & Output 07/23/24 07/24/24 07/24/24 18:59 06:59 18:59 Intake Total 480 110 10 Output Total 55 35 0 Balance 425 75 10 Weight 166 kg Intake: IV 120 110 10 KVO 0.9 NS 120 110 10 Oral 360 Output: Urine 55 35 0 Other: Voiding Method Indwelling Catheter Indwelling Catheter ABP, PAP, CO, CI - Last Documented Arterial Blood Pressure 106/46 - Exam General: Revealed a 78-year-old white male morbidly obese on room air, patient is receiving hemodialysis Head: Atraumatic, normocephalic Neck positive jugular venous distension, thyromegaly, or carotid bruits. Carotid upstrokes are brisk bilaterally. Lungs: Good breath sound bilaterally slightly diminished at the bases only Cardiac: Distant S1-S2, no S3 gallop, no murmur. Abdominal: Morbidly obese soft nontender no megaly positive abdominal wall edema Extremities trace of + bipedal edema femoral and pedal pulses are normal. Neurologically, alert oriented x 3 no gross focal deficits Psychiatric: Normal mood affect and no mental status examination. Skin: Decreased left leg swelling, redness, no open wounds or any drainage - Labs CBC & Chem 7: 07/24/24 04:25 07/24/24 04:25 Labs: Abnormal Lab Results - Last 24 Hours (Table) 07/23/24 07/24/24 07/24/24 Range/Units 10:30 04:25 04:25 WBC 13.4 H (3.8-10.6) k/uL RBC 2.98 L (4.30-5.90) m/uL Hgb 10.7 L (13.0-17.5) gm/dL Hct 32.2 L (39.0-53.0) % MCV 108.0 H (80.0-100.0) fL MCH 35.8 H (25.0-35.0) pg RDW 16.5 H (11.5-15.5) % Plt Count 126 L (150-450) k/uL Macrocytosis Marked A Sodium 131 L (137-145) mmol/L Potassium 6.0 H (3.5-5.1) mmol/L Carbon Dioxide 19 L (22-30) mmol/L BUN 106 H* (9-20) mg/dL Creatinine 4.49 H (0.66-1.25) mg/dL Urine Protein 2+ H (Negative) Urine Blood Large H (Negative) Urine Bilirubin 1+ H (Negative) Ur Leukocyte Esterase Large H (Negative) Urine RBC >182 H (0-5) /hpf Urine WBC 157 H (0-5) /hpf Urine Bacteria Many H (None) /hpf Microbiology - Last 24 Hours (Table) 07/23/24 10:39 Blood Culture Gram Stain - Preliminary Blood Blood Culture - Preliminary Molecular ID Assessment and Plan Assessment: Impression: Acute on chronic diastolic congestive heart failure with hypotension, recovered MRSA bacteremia noted on the blood cultures, reported today hence infectious disease will address accordingly Hypotension, multifactorial Acute on chronic stage IIIb kidney disease with massive volume overload and initiated on hemodialysis, last hemodialysis session was on 07/21/2024 with 2.4 L of ultrafiltration. Hyperlipidemia Chronic atrial fibrillation, maintained on anticoagulation with Eliquis Enterococcus faecalis urinary tract infection completed Unasyn. Severe pulmonary hypertension Morbid obesity Gout History of obstructive sleep apnea, not tolerant to CPAP therapy Previous history of WPW and SVT Osteoarthritis Previous history of DVT of lower extremities Glaucoma Recommendation: Continue to monitor today in the ICU Infectious disease to address his positive blood cultures accordingly Continue hemodialysis Continue midodrine and close monitoring of the blood pressure May have to consider a lower dose of metoprolol as his blood pressure remains marginal Patient is off norepinephrine today. Again blood pressure is marginal Nephrology to continue addressing his renal status/hemodialysis Will continue to monitor. Overall prognosis remains extremely poor and guarded. Time with Patient: Less than 30
[2024-07-24] MEDS: DESMOPRESSIN ACETATE 34 MCG in SODIUM CHLORIDE 0.9% 50 ML IVPB ONE (11:05)
[2024-07-24] MEDS: DEXTROSE 5% IN WATER 100 ML with AMIODARONE 150 MG IV STA (12:50)
[2024-07-24] MEDS: AMIODARONE 360 MG in DEXTROSE 5% IN WATER 200 ML IV ONE (12:52)
[2024-07-24] MEDS: AMIODARONE 450 MG in DEXTROSE 5% IN WATER 250 ML IV SCH (18:40)
[2024-07-25 06:07] LABS: Anisocytosis Slight; HCT 31.2 % (39.0-53.0); HGB 10.4 gm/dL (13.0-17.5); MCH 36.3 pg (25.0-35.0); MCHC 33.4 g/dL (31.0-37.0); MCV 108.8 fL (80.0-100.0); Platelet Count 103 k/uL (150-450); RBC 2.87 m/uL (4.30-5.90); RDW 17.3 % (11.5-15.5); WBC 13.4 k/uL (3.8-10.6)
[2024-07-25 06:25] LABS: ALT 14 U/L (4-49); AST 28 U/L (17-59); African American GFR (CKD) 15 (>60 ml/min/1.73 sqM); Albumin 2.4 g/dL (3.5-5.0); Alkaline Phosphatase 174 U/L (38-126); Anion Gap 8 mmol/L; Blood Urea Nitrogen 82 mg/dL (9-20); Calcium 8.3 mg/dL (8.4-10.2); Carbon Dioxide 27 mmol/L (22-30); Chloride 96 mmol/L (98-107); Glucose 95 mg/dL (74-99); Non-African American GFR(CKD) 13 (>60 ml/min/1.73 sqM); Potassium 4.5 mmol/L (3.5-5.1); Sodium 131 mmol/L (137-145); Total Bilirubin 3.2 mg/dL (0.2-1.3); Total Protein 5.3 g/dL (6.3-8.2)
[2024-07-25 06:58] LABS: Macrocytosis Marked
--- NOTE | 2024-07-25 08:23 | P.PN ---
Subjective Progress Note Date: 07/25/24 This is a 78-year-old male who originally presented to the emergency department after a fall at home, reportedly his knee gave out. Patient also complained of shortness of breath and feels poorly overall. Patient became hypotensive and was transferred to the ICU. Creatinine remains elevated and he has been on Lasix drip. Patient lives with his at home, who he cares for. Patient seen this morning resting comfortably in bed. He is still hypotensive this morning. Creatinine today is 3.77. 07/10/2024 Patient was started on hemodialysis on 07/06. He is currently off of lasix drip but still on pressors. He is seen this morning laying in bed. He reports he is more fatigued today. 07/11/2024 Patient seen and evaluated laying in bed this morning. He is still on Levophed. Creatinine today is 3.3. He does appear more fatigued today. He did have dialysis yesterday. 07/13/2024 Patient seen and evaluated laying in bed this morning. He still remains on Levophed. He had dialysis yesterday. Creatinine today is 2.97. Patient appears to be in better spirits today. 07/17/2024 Patient seen and evaluated laying in bed this morning eating breakfast. He is currently off of Levophed and pressure is holding. Dialysis is now on a Wednesday schedule. Creatinine is 4.52 today. 07/24/2024 Patient seen and evaluated resting comfortably in bed this morning. He was back on pressors over the weekend but is currently off of pressors and maintained on midodrine. Plan is for dialysis today. 07/25/2024 Patient seen and evaluated laying in bed this morning. Blood pressure has been holding, maintained on midodrine. Yesterday blood cultures were positive and he was started on daptomycin. Patient appears more fatigued today. Objective - Vital Signs Vital signs: Vital Signs Temp 97.5 F L 07/25/24 04:00 Pulse 71 07/25/24 07:00 Resp 12 07/25/24 07:00 BP 107/59 07/25/24 07:00 Pulse Ox 97 07/25/24 07:00 FiO2 21 07/22/24 04:00 Intake & Output 07/24/24 07/25/24 07/25/24 18:59 06:59 18:59 Intake Total 1346.4 60 Output Total 4434 15 Balance -3087.6 45 Weight 168 kg Intake: IV 476.4 60 Amiodarone 360 mg In 199.8 Dextrose 5% in Water 200 ml @ 1 MG/MIN 33.333 mls/ hr IV .Q6H [facility] Rx#: [id number] Amiodarone 450 mg In 16.6 Dextrose 5% in Water 250 ml @ 0.5 MG/MIN 16.667 mls/hr IV .Q15H [facility] Rx#: [id number] DAPTOmycin 700 mg In 50 Sodium Chloride 0.9% 50 ml @ 100 mls/hr IVPB Q48H [facility] Rx#:[id number] Dextrose 5% in Water 100 100 ml @ 618 mls/hr IV .Q10M [facility] with Amiodarone 150 mg Rx#:[id number] Normal Saline as KVO @ 110 60 10mL/hr Oral 470 Hemodialysis 400 Output: Urine 34 15 Hemodialysis 2400 Hemodialysis Net Amount 2000 Other: Voiding Method Indwelling Catheter Indwelling Catheter ABP, PAP, CO, CI - Last Documented Arterial Blood Pressure 106/46 - Constitutional General appearance: Present: cooperative, no acute distress - EENT Eyes: Present: PERRLA - Neck Neck: Present: normal ROM. Absent: lymphadenopathy, rigidity - Respiratory Respiratory: bilateral: CTA - Cardiovascular Rhythm: irregularly irregular - Gastrointestinal General gastrointestinal: Present: soft. Absent: tenderness - Integumentary Integumentary: Present: normal, normal turgor - Musculoskeletal Musculoskeletal: Present: generalized weakness - Psychiatric Psychiatric: Present: A&O x's 3 - Labs CBC & Chem 7: 07/25/24 05:37 07/25/24 05:37 Labs: Abnormal Lab Results - Last 24 Hours (Table) 07/25/24 07/25/24 Range/Units 05:37 05:37 WBC 13.4 H (3.8-10.6) k/uL RBC 2.87 L (4.30-5.90) m/uL Hgb 10.4 L (13.0-17.5) gm/dL Hct 31.2 L (39.0-53.0) % MCV 108.8 H (80.0-100.0) fL MCH 36.3 H (25.0-35.0) pg RDW 17.3 H (11.5-15.5) % Plt Count 103 L (150-450) k/uL Macrocytosis Marked A Sodium 131 L (137-145) mmol/L Chloride 96 L (98-107) mmol/L BUN 82 H (9-20) mg/dL Creatinine 4.08 H (0.66-1.25) mg/dL Calcium 8.3 L (8.4-10.2) mg/dL Total Bilirubin 3.2 H (0.2-1.3) mg/dL Alkaline Phosphatase 174 H (38-126) U/L Total Protein 5.3 L (6.3-8.2) g/dL Albumin 2.4 L (3.5-5.0) g/dL Microbiology - Last 24 Hours (Table) 07/24/24 12:30 Blood Culture Gram Stain - Preliminary Blood 07/23/24 10:30 Urine Culture - Preliminary Urine,Catheterized Gram Neg Bacilli Group D Enterococcus 07/23/24 10:45 Blood Culture Gram Stain - Preliminary Blood 07/23/24 10:39 Blood Culture Gram Stain - Preliminary Blood Blood Culture - Preliminary Molecular ID Assessment and Plan (1) Hypotension Current Visit: Yes Status: Acute Code(s): I95.9 - HYPOTENSION, UNSPECIFIED SNOMED Code(s): 35360932 (2) Weakness Current Visit: Yes Status: Acute Code(s): R53.1 - WEAKNESS SNOMED Code(s): 15454425 (3) Cellulitis Current Visit: Yes Status: Acute Code(s): L03.90 - CELLULITIS, UNSPECIFIED SNOMED Code(s): 540515911 (4) Acute kidney injury Current Visit: Yes Status: Acute Code(s): N17.9 - ACUTE KIDNEY FAILURE, UNSPECIFIED SNOMED Code(s): 54480141 (5) Acute on chronic heart failure Current Visit: Yes Status: Acute Code(s): I50.9 - HEART FAILURE, UNSPECIFIED SNOMED Code(s): 246312219 (6) Hyponatremia Current Visit: Yes Status: Acute Code(s): E87.1 - HYPO-OSMOLALITY AND HYPONATREMIA SNOMED Code(s): 05938729 Plan: Check CBC and CMP in the morning. Appreciate multiple consultants. Patient seen and evaluated by nurse practitioner, physician in agreement with plan
[2024-07-25] MEDS: NOREPINEPHRINE 4 MG in SODIUM CHLORIDE 0.9% 250 ML IV SCH (09:03)
--- NOTE | 2024-07-25 09:31 | P.PN ---
Subjective Progress Note Date: 07/25/24 The patient is a 78-year-old male who follows in the office with Dr. Peter who is currently admitted to the hospital after a fall. The patient developed a cellulitis in his right lower extremity, had breakthrough of his atrial fibrillation, heart failure exacerbation, and progression in his chronic kidney disease now requiring dialysis. Cardiology has been reconsulted for A-fib management. He was started on IV amiodarone and is now rate controlled in the 70s. Amiodarone drip scheduled to be discontinued at 1 PM later today. Patient was interviewed and examined resting comfortably in bed. He denies any current chest discomfort. He appears to be breathing comfortably at rest. GENERAL: Ill-appearing, obese male and in no acute distress. NECK: Supple without JVD or thyromegaly. LUNGS: Breath sounds diminished to auscultation bilaterally. Respiration equal and unlabored. No wheezes, rales or rhonchi. HEART: Irregular rate and rhythm without murmurs, rubs or gallops. S1 and S2 heard. EXTREMITIES: Normal range of motion, +2 lower extremity edema. No clubbing or cyanosis. Peripheral pulses intact and strong. TELEMETRY: Atrial fibrillation with rate controlled in the 70s LABS: WBC 13.4, hemoglobin 10.4, hematocrit 31.2, platelet 103, sodium 131, potassium 4.5, BUN 82, creatinine 4.08, AST 28, ALT 14, ALP 174 IMPRESSION: Permanent atrial fibrillation, on Eliquis Acute on chronic diastolic heart failure, mainly right sided Acute kidney injury, now chronic Chronic kidney disease stage V, on dialysis Hypertension Dyslipidemia History of DVT Dilated thoracic aorta Valvular heart disease with moderate MR, moderate to severe pulmonary hypertension small pericardial effusion PLAN: Transition to oral amiodarone Continue anticoagulation Further recommendations to be based on clinical course I am dictating on behalf of Dr Adrian Flores's history/physical and assessment/plan. Objective - Vital Signs Vital signs: Vital Signs Temp 97.5 F L 07/25/24 04:00 Pulse 71 07/25/24 07:00 Resp 12 07/25/24 07:00 BP 107/59 07/25/24 07:00 Pulse Ox 97 07/25/24 07:00 FiO2 21 07/22/24 04:00 Intake & Output 07/24/24 07/25/24 07/25/24 18:59 06:59 18:59 Intake Total 1346.4 60 Output Total 4434 15 Balance -3087.6 45 Weight 168 kg Intake: IV 476.4 60 Amiodarone 360 mg In 199.8 Dextrose 5% in Water 200 ml @ 1 MG/MIN 33.333 mls/ hr IV .Q6H [facility] Rx#: [id number] Amiodarone 450 mg In 16.6 Dextrose 5% in Water 250 ml @ 0.5 MG/MIN 16.667 mls/hr IV .Q15H [facility] Rx#: [id number] DAPTOmycin 700 mg In 50 Sodium Chloride 0.9% 50 ml @ 100 mls/hr IVPB Q48H [facility] Rx#:[id number] Dextrose 5% in Water 100 100 ml @ 618 mls/hr IV .Q10M [facility] with Amiodarone 150 mg Rx#:[id number] Normal Saline as KVO @ 110 60 10mL/hr Oral 470 Hemodialysis 400 Output: Urine 34 15 Hemodialysis 2400 Hemodialysis Net Amount 2000 Other: Voiding Method Indwelling Catheter Indwelling Catheter ABP, PAP, CO, CI - Last Documented Arterial Blood Pressure 106/46 - Labs CBC & Chem 7: 07/25/24 05:37 07/25/24 05:37 Labs: Abnormal Lab Results - Last 24 Hours (Table) 07/25/24 07/25/24 Range/Units 05:37 05:37 WBC 13.4 H (3.8-10.6) k/uL RBC 2.87 L (4.30-5.90) m/uL Hgb 10.4 L (13.0-17.5) gm/dL Hct 31.2 L (39.0-53.0) % MCV 108.8 H (80.0-100.0) fL MCH 36.3 H (25.0-35.0) pg RDW 17.3 H (11.5-15.5) % Plt Count 103 L (150-450) k/uL Macrocytosis Marked A Sodium 131 L (137-145) mmol/L Chloride 96 L (98-107) mmol/L BUN 82 H (9-20) mg/dL Creatinine 4.08 H (0.66-1.25) mg/dL Calcium 8.3 L (8.4-10.2) mg/dL Total Bilirubin 3.2 H (0.2-1.3) mg/dL Alkaline Phosphatase 174 H (38-126) U/L Total Protein 5.3 L (6.3-8.2) g/dL Albumin 2.4 L (3.5-5.0) g/dL Microbiology - Last 24 Hours (Table) 07/24/24 12:30 Blood Culture Gram Stain - Preliminary Blood 07/23/24 10:30 Urine Culture - Preliminary Urine,Catheterized Gram Neg Bacilli Group D Enterococcus 07/23/24 10:45 Blood Culture Gram Stain - Preliminary Blood 07/23/24 10:39 Blood Culture Gram Stain - Preliminary Blood Blood Culture - Preliminary Molecular ID
--- NOTE | 2024-07-25 10:19 | P.PN ---
Subjective Patient is seen in follow-up for acute kidney injury on chronic kidney disease. Started on hemodialysis July 06, 2024. Has permacath. Tolerated 2 L ultrafiltration yesterday. Vital signs are stable. General: No acute distress. HEENT: Head exam is unremarkable. On room air. LUNGS: No audible rhonchi or wheezes. HEART: Rate and Rhythm are regular. ABDOMEN: Obese, nontender. EXTREMITITES: 2+ edema. Objective - Vital Signs Vital signs: Vital Signs Temp 97.5 F L 07/25/24 04:00 Pulse 71 07/25/24 07:00 Resp 12 07/25/24 07:00 BP 107/59 07/25/24 07:00 Pulse Ox 97 07/25/24 07:00 FiO2 21 07/22/24 04:00 Intake & Output 07/24/24 07/25/24 07/25/24 18:59 06:59 18:59 Intake Total 1346.4 60 Output Total 4434 15 Balance -3087.6 45 Weight 168 kg Intake: IV 476.4 60 Amiodarone 360 mg In 199.8 Dextrose 5% in Water 200 ml @ 1 MG/MIN 33.333 mls/ hr IV .Q6H [facility] Rx#: [id number] Amiodarone 450 mg In 16.6 Dextrose 5% in Water 250 ml @ 0.5 MG/MIN 16.667 mls/hr IV .Q15H [facility] Rx#: [id number] DAPTOmycin 700 mg In 50 Sodium Chloride 0.9% 50 ml @ 100 mls/hr IVPB Q48H [facility] Rx#:[id number] Dextrose 5% in Water 100 100 ml @ 618 mls/hr IV .Q10M [facility] with Amiodarone 150 mg Rx#:[id number] Normal Saline as KVO @ 110 60 10mL/hr Oral 470 Hemodialysis 400 Output: Urine 34 15 Hemodialysis 2400 Hemodialysis Net Amount 2000 Other: Voiding Method Indwelling Catheter Indwelling Catheter ABP, PAP, CO, CI - Last Documented Arterial Blood Pressure 106/46 - Labs CBC & Chem 7: 07/25/24 05:37 07/25/24 05:37 Labs: Abnormal Lab Results - Last 24 Hours (Table) 07/25/24 07/25/24 Range/Units 05:37 05:37 WBC 13.4 H (3.8-10.6) k/uL RBC 2.87 L (4.30-5.90) m/uL Hgb 10.4 L (13.0-17.5) gm/dL Hct 31.2 L (39.0-53.0) % MCV 108.8 H (80.0-100.0) fL MCH 36.3 H (25.0-35.0) pg RDW 17.3 H (11.5-15.5) % Plt Count 103 L (150-450) k/uL Macrocytosis Marked A Sodium 131 L (137-145) mmol/L Chloride 96 L (98-107) mmol/L BUN 82 H (9-20) mg/dL Creatinine 4.08 H (0.66-1.25) mg/dL Calcium 8.3 L (8.4-10.2) mg/dL Total Bilirubin 3.2 H (0.2-1.3) mg/dL Alkaline Phosphatase 174 H (38-126) U/L Total Protein 5.3 L (6.3-8.2) g/dL Albumin 2.4 L (3.5-5.0) g/dL Microbiology - Last 24 Hours (Table) 07/23/24 10:39 Blood Culture Gram Stain - Preliminary Blood Blood Culture - Preliminary Presumptive MRSA Molecular ID 07/23/24 10:45 Blood Culture Gram Stain - Preliminary Blood Blood Culture - Preliminary Presumptive MRSA 07/24/24 12:30 Blood Culture Gram Stain - Preliminary Blood 07/23/24 10:30 Urine Culture - Preliminary Urine,Catheterized Gram Neg Bacilli Group D Enterococcus Assessment and Plan Plan: Assessment: 1. Acute kidney injury secondary to ATN secondary to hypotension and cardiorenal syndrome. Creatinine up to 4.3 dated July 06, 2024. Started on hemodialysis July 06, 2024 via femoral dialysis catheter. Now has permacath. No hydronephrosis noted on ultrasound. Trace protein on UA. 2. 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 Creatinine 1.5 in March 2024. 3. Acute on chronic diastolic CHF and moderate mitral consultation, severe tricuspid regurgitation and pulmonary hypertension. 4. Volume overload. Improved with diuresis and ultrafiltration. 5. MRSA bacteremia. ID following. 6. Hypervolemic hyponatremia. Stable. 7. Hyperphosphatemia secondary to acute kidney injury. Phosphorus level 5.0 dated July 12, 2024. On Renvela. Plan: Hemodialysis tomorrow. Maintain on Wednesday schedule. Status post IV DDAVP given July 24, 2024. Oozing from the [facility] site improved. Low-salt diet and 1500 cc fluid restriction. Maintain midodrine. Avoid nephrotoxins. Continue to monitor renal function and urine output.
--- NOTE | 2024-07-25 13:29 | P.PN ---
Subjective Progress Note Date: 07/25/24 Principal diagnosis: Acute on chronic right-sided congestive heart failure with chronic hypotension This is a 78-year-old male patient with massive fluid overload, ongoing diffic ulty with chronic kidney failure as the patient has developed an acute on top of chronic renal disease with extensive third spacing and anasarca and possibly a component of cardiorenal syndrome. 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 Baseline creatinine is around 1.5 back in March 2024. The patient presented to us with volume overload, acute on top of chronic diastolic heart failure with moderate mitral regurgitation. Patient also was diagnosed having an Enterococcus urinary tract infection currently on IV Unasyn. Initial rate, attempts to diurese this patient with Lasix have failed due to ongoing hypotension. The patient was started on midodrine 10 mg p.o. 4 times daily. Subsequently, I was asked to transfer this patient to the ICU for hemodynamic support and pressor use as the patient was going to be started on Lasix 5 mg infusion in combination with Zaroxolyn 5 mg p.o. daily. Based on that, the patient was transferred to the ICU. Lasix s drip was started and the patient will be started also on norepinephrine for blood pressure support. He is currently awake and alert. Following commands. He is on oxygen at 2 L/min nasal cannula. His chest x-ray showing small bilateral pleural effusion and this is less x-ray that was done on 06/26/2024. On 07/21/2024, the patient is undergoing hemodialysis. His blood pressure is stable. The patient was taken off the IV Solu-Cortef yesterday. He remains on metoprolol 50 mg p.o. twice daily. He remains in atrial fibrillation. Rate is controlled for now. He is tolerating dialysis reasonably well. No hemodynamic instability and the patient remains on room air oxygen with a pulse ox of 95%. No other significant events overnight. On 07/22/2024, patient is being seen in follow-up. The patient was transferred to the intensive. As the patient became hypotensive and he developed atrial fibrillation with rapid ventricular response. He was placed on a Cardizem drip at 5 mg an hour and currently is off the Cardizem. He also received a total of 1 L of IV fluid normal saline bolus. Subsequently, the patient was started on low-dose norepinephrine and currently norepinephrine is running at 0.03 mcg/kg/min. Last hemodialysis session was on 07/21/2024 and a total of 2.4 L of fluid was removed. He is currently on 3 days of oxygen by nasal cannula. Awake and alert and communicating. Afebrile. White cell count is 16 with a hemoglobin of 11 and a platelet count of 144. BUN is 80 with a creatinine of 3.6. Sodium levels at 133. No respiratory distress. He was taken off the IV hydrocortisone yesterday. Patient was seen today on 07/24/2024, patient is in the ICU, receiving hemodialysis during my evaluation, not requiring any pressors, patient received full course of treatment for his cellulitis and UTI secondary to Enterococcus faecalis, patient is being followed by infectious disease. Repeat blood cultures today are positive for gram-positive cocci in clusters suspected MRSA, infectious disease will be notified and may have to go back on antibio tics/vancomycin. CBC is 13.4 hemoglobin 10.7. Electrolytes are normal except for potassium of 6 which will be corrected after hemodialysis today. BUN is 106 creatinine 4.49 Patient evaluated today on 07/25/2024, patient remains in the ICU, he is on 2 L nasal cannula, not in distress, yesterday I was told about his positive blood cultures showing MRSA patient is now on daptomycin. Patient also had an episode of atrial fibrillation with RVR I bolused the patient with amiodarone, presently on amiodarone drip at 0.5 mg/min, and cardiology will transition his amiodarone today to oral amiodarone. His right lower extremity cellulitis seems to be improving. Patient is on anticoagulation therapy/Eliquis. Not in distress, seems to be doing fairly well overall. Hence considering the patient is hemodynamically stable today, I would likely transfer the patient to a monitored bed on 3 S. today. Patient had ultrafiltration yesterday and 2 L of fluids were removed. WBC count is 13.4 hemoglobin is 10.4 electrolytes showed low sodium of 131 BUN is 82 creatinine 4.08 Objective - Vital Signs Vital signs: Vital Signs Temp 98.4 F 07/25/24 08:00 Pulse 72 07/25/24 11:00 Resp 16 07/25/24 11:00 BP 107/44 07/25/24 11:00 Pulse Ox 99 07/25/24 11:00 FiO2 21 07/22/24 04:00 Intake & Output 07/24/24 07/25/24 07/25/24 18:59 06:59 18:59 Intake Total 1346.4 60 25 Output Total 4434 15 5 Balance -3087.6 45 20 Weight 168 kg 168 kg Intake: IV 476.4 60 25 Amiodarone 360 mg In 199.8 Dextrose 5% in Water 200 ml @ 1 MG/MIN 33.333 mls/ hr IV .Q6H ONE Rx#: [id number] Amiodarone 450 mg In 16.6 Dextrose 5% in Water 250 ml @ 0.5 MG/MIN 16.667 mls/hr IV .Q15H SOFI Rx#: [id number] DAPTOmycin 700 mg In 50 Sodium Chloride 0.9% 50 ml @ 100 mls/hr IVPB Q48H SOFI Rx#:[id number] Dextrose 5% in Water 100 100 ml @ 618 mls/hr IV .Q10M STA with Amiodarone 150 mg Rx#:[id number] Normal Saline as KVO @ 110 60 25 10mL/hr Oral 470 Hemodialysis 400 Output: Urine 34 15 5 Hemodialysis 2400 Hemodialysis Net Amount 1999 Other: Voiding Method Indwelling Catheter Indwelling Catheter Indwelling Catheter ABP, PAP, CO, CI - Last Documented Arterial Blood Pressure 106/46 - Exam General: Revealed a 78-year-old white male morbidly obese on 2 L nasal cannula, not in distress Head: Atraumatic, normocephalic Neck positive jugular venous distension, thyromegaly, or carotid bruits. Carotid upstrokes are brisk bilaterally. Lungs: Good breath sound bilaterally slightly diminished at the bases only Cardiac: Distant S1-S2, no S3 gallop, no murmur. Abdominal: Morbidly obese soft nontender no megaly positive abdominal wall edema Extremities trace of + bipedal edema femoral and pedal pulses are normal. Left lower extremity was examined after removing the dressing and there is definite cellulitis and minimal superficial ulceration of the right lower extremity in the mid calf region Neurologically, alert oriented x 3 no gross focal deficits Psychiatric: Normal mood affect and no mental status examination. Skin: Decreased left leg swelling, redness, no open wounds or any drainage - Labs CBC & Chem 7: 07/25/24 05:37 07/25/24 05:37 Labs: Abnormal Lab Results - Last 24 Hours (Table) 07/25/24 07/25/24 Range/Units 05:37 05:37 WBC 13.4 H (3.8-10.6) k/uL RBC 2.87 L (4.30-5.90) m/uL Hgb 10.4 L (13.0-17.5) gm/dL Hct 31.2 L (39.0-53.0) % MCV 108.8 H (80.0-100.0) fL MCH 36.3 H (25.0-35.0) pg RDW 17.3 H (11.5-15.5) % Plt Count 103 L (150-450) k/uL Macrocytosis Marked A Sodium 131 L (137-145) mmol/L Chloride 96 L (98-107) mmol/L BUN 82 H (9-20) mg/dL Creatinine 4.08 H (0.66-1.25) mg/dL Calcium 8.3 L (8.4-10.2) mg/dL Total Bilirubin 3.2 H (0.2-1.3) mg/dL Alkaline Phosphatase 174 H (38-126) U/L Total Protein 5.3 L (6.3-8.2) g/dL Albumin 2.4 L (3.5-5.0) g/dL Microbiology - Last 24 Hours (Table) 07/23/24 10:39 Blood Culture Gram Stain - Preliminary Blood Blood Culture - Preliminary Presumptive MRSA Molecular ID 07/23/24 10:45 Blood Culture Gram Stain - Preliminary Blood Blood Culture - Preliminary Presumptive MRSA 07/24/24 12:30 Blood Culture Gram Stain - Preliminary Blood 07/23/24 10:30 Urine Culture - Preliminary Urine,Catheterized Gram Neg Bacilli Group D Enterococcus Assessment and Plan Assessment: Impression: Acute on chronic diastolic congestive heart failure with hypotension, recovered MRSA bacteremia noted on the blood cultures, reported today hence infectious disease will address accordingly Hypotension, multifactorial Acute on chronic stage IIIb kidney disease with massive volume overload and initiated on hemodialysis, last hemodialysis session was on 07/21/2024 with 2.4 L of ultrafiltration. Hyperlipidemia Chronic atrial fibrillation, maintained on anticoagulation with Eliquis Enterococcus faecalis urinary tract infection completed Unasyn. Severe pulmonary hypertension Morbid obesity Gout History of obstructive sleep apnea, not tolerant to CPAP therapy Previous history of WPW and SVT Osteoarthritis Previous history of DVT of lower extremities Glaucoma Recommendation: Transition amiodarone from IV to oral Continue antibiotics as per infectious disease on the case, patient is on daptomycin Continue hemodialysis/ultrafiltration Continue midodrine and close monitoring of the blood pressure Could consider transferring the patient out of the ICU to a monitored bed and selective Nephrology to continue addressing his renal status/hemodialysis Will continue to monitor. Considering the patient has been in the hospital for now almost 1 month, prognosis is definitely poor and guarded. Patient will eventually require placement/ECF Time with Patient: Less than 30
--- NOTE | 2024-07-25 13:55 | P.PN ---
Subjective Progress Note Date: 07/24/24 Principal diagnosis: Reason for follow-up is left leg cellulitis Patient is a 78-year-old male with a past medical history significant for atrial fibrillation hypertension hyperlipidemia osteoarthritis sleep apnea presenting to the hospital for evaluation of weakness and fall patient was initially treated for cellulitis UTI and subsequently signed off and the patient has been in the hospital undergoing treatment for his acute renal failure patient did have a dialysis catheter placement and is undergoing dialysis patient was running a low-grade fever blood culture has been obtained which came back positive with MRSA prompting reevaluation for this bacteremia. On today's evaluation that is 07/24/2024, Patient did have a low-grade fever of 99.3 F patient is currently requiring low-dose pressor support to maintain his blood pressure and is undergoing dialysis patient is on 2 L nasal cannula oxygen denies any chest pain shortness of breath or cough no vomiting diarrhea mention not feeling well. Patient white count is 13.4 with a previous reading of 24.9 blood culture with presumptive MRSA Objective - Vital Signs Vital signs: Vital Signs Temp 98.2 F 07/24/24 08:00 Pulse 130 H 07/24/24 10:00 Resp 26 H 07/24/24 10:00 BP 104/44 07/24/24 10:00 Pulse Ox 97 07/24/24 10:00 FiO2 21 07/22/24 04:00 Intake & Output 07/23/24 07/24/24 07/24/24 18:59 06:59 18:59 Intake Total 480 110 40 Output Total 55 35 16 Balance 425 75 24 Weight 166 kg Intake: IV 120 110 40 Normal Saline as KVO @ 120 110 40 10mL/hr Oral 360 Output: Urine 55 35 16 Other: Voiding Method Indwelling Catheter Indwelling Catheter ABP, PAP, CO, CI - Last Documented Arterial Blood Pressure 106/46 - Exam GENERAL DESCRIPTION: An elderly male lying in bed in no distress RESPIRATORY SYSTEM: Unlabored breathing , decreased breath sounds at bases HEART: S1 S2 regular rate and rhythm , ABDOMEN: Soft , no tenderness EXTREMITIES: Left leg swelling redness slightly decreased no open wound or any drainage - Labs CBC & Chem 7: 07/25/24 05:37 07/25/24 05:37 Labs: Abnormal Lab Results - Last 24 Hours (Table) 07/23/24 07/24/24 07/24/24 Range/Units 10:30 04:25 04:25 WBC 13.4 H (3.8-10.6) k/uL RBC 2.98 L (4.30-5.90) m/uL Hgb 10.7 L (13.0-17.5) gm/dL Hct 32.2 L (39.0-53.0) % MCV 108.0 H (80.0-100.0) fL MCH 35.8 H (25.0-35.0) pg RDW 16.5 H (11.5-15.5) % Plt Count 126 L (150-450) k/uL Macrocytosis Marked A Sodium 131 L (137-145) mmol/L Potassium 6.0 H (3.5-5.1) mmol/L Carbon Dioxide 19 L (22-30) mmol/L BUN 106 H* (9-20) mg/dL Creatinine 4.49 H (0.66-1.25) mg/dL Urine Protein 2+ H (Negative) Urine Blood Large H (Negative) Urine Bilirubin 1+ H (Negative) Ur Leukocyte Esterase Large H (Negative) Urine RBC >182 H (0-5) /hpf Urine WBC 157 H (0-5) /hpf Urine Bacteria Many H (None) /hpf Microbiology - Last 24 Hours (Table) 07/23/24 10:39 Blood Culture Gram Stain - Preliminary Blood Blood Culture - Preliminary Molecular ID Assessment and Plan (1) MRSA bacteremia Current Visit: Yes Status: Acute Code(s): R78.81 - BACTEREMIA; B95.62 - METHICILLIN RESIS STAPH INFCT CAUSING DISEASES CLASSD ELSR SNOMED Code(s): 1 8818585531906710 (2) Sepsis Current Visit: Yes Status: Acute Code(s): A41.9 - SEPSIS, UNSPECIFIED ORGAN ISM SNOMED Code(s): 14251963 Plan: 1patient with sepsis in this patient who did have a fever elevated white count hypotension requiring pressor support and now with evidence of MRSA bacteremia likely the source of the sepsis and possible related to his dialysis catheter 2-discussed with the nephrology blood pressure should be obtained from the dialysis catheter at the time of dialysis 3-blood culture repeat document clearance of his bacteremia 4-patient started on daptomycin 6 mg/kg q. 48-hour and will monitor clinical course closely Dictation was produced using [employer] software. please excuse any grammatical, word or spelling errors. Time with Patient: Less than 30
--- NOTE | 2024-07-25 13:56 | P.PN ---
Subjective Progress Note Date: 07/25/24 Principal diagnosis: Reason for follow-up is left leg cellulitis Patient is a 78-year-old male with a past medical history significant for atrial fibrillation hypertension hyperlipidemia osteoarthritis sleep apnea presenting to the hospital for evaluation of weakness and fall patient was initially treated for cellulitis UTI and subsequently signed off and the patient has been in the hospital undergoing treatment for his acute renal failure patient did have a dialysis catheter placement and is undergoing dialysis patient was running a low-grade fever blood culture has been obtained which came back positive with MRSA prompting reevaluation for this bacteremia. On today's evaluation that is 07/25/2024, patient has been afebrile, patient is breathing comfortably and is currently on 2 L nasal cannula oxygen patient denies having any significant cough no chest pain, patient denies nausea vomiting or diarrhea and no abdominal pain, the patient off the pressor support as reported by the nursing staff. Patient white count is 13.4 creatinine 4.0 8 repeat cultures currently pending Objective - Vital Signs Vital signs: Vital Signs Temp 98.4 F 07/25/24 08:00 Pulse 72 07/25/24 11:00 Resp 16 07/25/24 11:00 BP 107/44 07/25/24 11:00 Pulse Ox 99 07/25/24 11:00 FiO2 21 07/22/24 04:00 Intake & Output 07/24/24 07/25/24 07/25/24 18:59 06:59 18:59 Intake Total 1346.4 60 25 Output Total 4434 15 5 Balance -3087.6 45 20 Weight 168 kg 168 kg Intake: IV 476.4 60 25 Amiodarone 360 mg In 199.8 Dextrose 5% in Water 200 ml @ 1 MG/MIN 33.333 mls/ hr IV .Q6H ONE Rx#: [id number] Amiodarone 450 mg In 16.6 Dextrose 5% in Water 250 ml @ 0.5 MG/MIN 16.667 mls/hr IV .Q15H SOFI Rx#: [id number] DAPTOmycin 700 mg In 50 Sodium Chloride 0.9% 50 ml @ 100 mls/hr IVPB Q48H SOFI Rx#:[id number] Dextrose 5% in Water 100 100 ml @ 618 mls/hr IV .Q10M STA with Amiodarone 150 mg Rx#:[id number] Normal Saline as KVO @ 110 60 25 10mL/hr Oral 470 Hemodialysis 400 Output: Urine 34 15 5 Hemodialysis 2400 Hemodialysis Net Amount 1999 Other: Voiding Method Indwelling Catheter Indwelling Catheter Indwelling Catheter ABP, PAP, CO, CI - Last Documented Arterial Blood Pressure 106/46 - Exam GENERAL DESCRIPTION: An elderly male lying in bed in no distress RESPIRATORY SYSTEM: Unlabored breathing , decreased breath sounds at bases HEART: S1 S2 regular rate and rhythm , ABDOMEN: Soft , no tenderness EXTREMITIES: Left leg swelling redness slightly decreased no open wound or any drainage - Labs CBC & Chem 7: 07/25/24 05:37 07/25/24 05:37 Labs: Abnormal Lab Results - Last 24 Hours (Table) 07/25/24 07/25/24 Range/Units 05:37 05:37 WBC 13.4 H (3.8-10.6) k/uL RBC 2.87 L (4.30-5.90) m/uL Hgb 10.4 L (13.0-17.5) gm/dL Hct 31.2 L (39.0-53.0) % MCV 108.8 H (80.0-100.0) fL MCH 36.3 H (25.0-35.0) pg RDW 17.3 H (11.5-15.5) % Plt Count 103 L (150-450) k/uL Macrocytosis Marked A Sodium 131 L (137-145) mmol/L Chloride 96 L (98-107) mmol/L BUN 82 H (9-20) mg/dL Creatinine 4.08 H (0.66-1.25) mg/dL Calcium 8.3 L (8.4-10.2) mg/dL Total Bilirubin 3.2 H (0.2-1.3) mg/dL Alkaline Phosphatase 174 H (38-126) U/L Total Protein 5.3 L (6.3-8.2) g/dL Albumin 2.4 L (3.5-5.0) g/dL Microbiology - Last 24 Hours (Table) 07/23/24 10:39 Blood Culture Gram Stain - Preliminary Blood Blood Culture - Preliminary Presumptive MRSA Molecular ID 07/23/24 10:45 Blood Culture Gram Stain - Preliminary Blood Blood Culture - Preliminary Presumptive MRSA 07/24/24 12:30 Blood Culture Gram Stain - Preliminary Blood 07/23/24 10:30 Urine Culture - Preliminary Urine,Catheterized Gram Neg Bacilli Group D Enterococcus Assessment and Plan (1) MRSA bacteremia Current Visit: Yes Status: Acute Code(s): R78.81 - BACTEREMIA; B95.62 - METHICILLIN RESIS STAPH INFCT CAUSING DISEASES CLASSD [id number] SNOMED Code(s): 54503151786493902 (2) Sepsis Current Visit: Yes Status: Acute Code(s): A41.9 - SEPSIS, UNSPECIFIED ORGANISM SNOMED Code(s): 55553197 Plan: 1patient with sepsis in this patient who did have a fever elevated white count hypotension requiring pressor support and now with evidence of MRSA bacteremia likely the source of the sepsis and possible related to his dialysis catheter 2-discussed with the nephrology blood pressure should be obtained from the dialysis catheter at the time of dialysis 3-blood culture has been repeated to document clearance of his bacteremia 4-patient to continue with daptomycin 6 mg/kg q. 48-hour and will monitor clinical course closely Dictation was produced using [employer] dictation software. please excuse any grammatical, word or spelling errors. Time with Patient: Less than 30
[2024-07-25] MEDS: AMIODARONE 200 MG TAB PO SCH (21:23)
[2024-07-26 06:49] LABS: Anisocytosis Slight; HCT 32.2 % (39.0-53.0); HGB 10.7 gm/dL (13.0-17.5); MCH 35.3 pg (25.0-35.0); MCHC 33.1 g/dL (31.0-37.0); MCV 106.5 fL (80.0-100.0); Macrocytosis Marked; Mean Platelet Volume 9.4; Platelet Count 116 k/uL (150-450); RBC 3.03 m/uL (4.30-5.90); RDW 17.4 % (11.5-15.5); WBC 13.5 k/uL (3.8-10.6)
[2024-07-26 07:10] LABS: ALT 15 U/L (4-49); African American GFR (CKD) 14 (>60 ml/min/1.73 sqM); Albumin 2.6 g/dL (3.5-5.0); Anion Gap 11 mmol/L; Blood Urea Nitrogen 95 mg/dL (9-20); Calcium 8.4 mg/dL (8.4-10.2); Carbon Dioxide 24 mmol/L (22-30); Chloride 95 mmol/L (98-107); Glucose 77 mg/dL (74-99); Non-African American GFR(CKD) 12 (>60 ml/min/1.73 sqM); Sodium 130 mmol/L (137-145); Total Bilirubin 3.3 mg/dL (0.2-1.3); Total Protein 5.9 g/dL (6.3-8.2)
[2024-07-26 07:18] LABS: AST 35 U/L (17-59); Alkaline Phosphatase 229 U/L (38-126); Potassium 5.3 mmol/L (3.5-5.1)
--- NOTE | 2024-07-26 08:29 | P.PN ---
Subjective Principal diagnosis: The patient is now blood culture positive for MRSA. Continuing to slowly improve with Daptomycin. Complains of lumbar back pain. [place] offered. No diarrhea. BP 94 systolic this morning Appreciate ID input. ? catheter infection. Objective - Vital Signs Vital signs: Vital Signs Temp 98.0 F 07/26/24 00:00 Pulse 117 H 07/26/24 04:00 Resp 22 07/26/24 04:00 BP 96/51 07/26/24 04:00 Pulse Ox 95 07/26/24 04:00 FiO2 21 07/22/24 04:00 Intake & Output 07/25/24 07/26/24 07/26/24 18:59 06:59 18:59 Intake Total 25 255 Output Total 5 75 Balance 20 180 Weight 168 kg 169 kg Intake: IV 25 5 Normal Saline as KVO @ 25 5 10mL/hr Oral 250 Output: Urine 5 75 Other: Voiding Method Indwelling Catheter Indwelling Catheter ABP, PAP, CO, CI - Last Documented Arterial Blood Pressure 106/46 - Constitutional General appearance: Present: morbidly obese - EENT Eyes: Absent: abnormal pupil - Neck Neck: Absent: lymphadenopathy - Respiratory Respiratory: bilateral: diminished - Cardiovascular Rhythm: regular Heart sounds: normal: S1, S2 Abnormal Heart Sounds: Absent: S3 Gallop - Gastrointestinal General gastrointestinal: Present: soft. Absent: tenderness - Integumentary Integumentary: Present: cellulitis. Absent: cyanotic - Labs CBC & Chem 7: 07/26/24 05:57 07/26/24 05:57 Labs: Abnormal Lab Results - Last 24 Hours (Table) 07/26/24 07/26/24 Range/Units 05:57 05:57 WBC 13.5 H (3.8-10.6) k/uL RBC 3.03 L (4.30-5.90) m/uL Hgb 10.7 L (13.0-17.5) gm/dL Hct 32.2 L (39.0-53.0) % MCV 106.5 H (80.0-100.0) fL MCH 35.3 H (25.0-35.0) pg RDW 17.4 H (11.5-15.5) % Plt Count 116 L (150-450) k/uL Macrocytosis Marked A Sodium 130 L (137-145) mmol/L Potassium 5.3 H (3.5-5.1) mmol/L Chloride 95 L (98-107) mmol/L BUN 95 H (9-20) mg/dL Creatinine 4.34 H (0.66-1.25) mg/dL Total Bilirubin 3.3 H (0.2-1.3) mg/dL Alkaline Phosphatase 229 H (38-126) U/L Total Protein 5.9 L (6.3-8.2) g/dL Albumin 2.6 L (3.5-5.0) g/dL Microbiology - Last 24 Hours (Table) 07/24/24 12:30 Blood Culture Gram Stain - Preliminary Blood Blood Culture - Preliminary Presumptive MRSA 07/23/24 10:30 Urine Culture - Preliminary Urine,Catheterized Gram Neg Bacilli Group D Enterococcus 07/23/24 10:39 Blood Culture Gram Stain - Preliminary Blood Blood Culture - Preliminary Presumptive MRSA Molecular ID 07/23/24 10:45 Blood Culture Gram Stain - Preliminary Blood Blood Culture - Preliminary Presumptive MRSA Assessment and Plan (1) Hypotension Current Visit: Yes Status: Acute Code(s): I95.9 - HYPOTENSION, UNSPECIFIED SNOMED Code(s): 29010320 (2) Left leg cellulitis Current Visit: Yes Status: Acute Code(s): L03.116 - CELLULITIS OF LEFT LOWER LIMB SNOMED Code(s): 21811186215405777 (3) Weakness Current Visit: Yes Status: Acute Code(s): R53.1 - WEAKNESS SNOMED Code(s): 72634952 Plan: Acute on chronic renal failure. Still hypotensive, but off IV pressors Will continue to follow with multiple consultants. Check CBC and CMP in a.m. Hopefully transfer to telemetry today
--- NOTE | 2024-07-26 09:54 | P.PN ---
Subjective Progress Note Date: 07/26/24 The patient is a 78-year-old male who follows in the office with Dr. Peter who is currently admitted to the hospital after a fall. The patient developed a cellulitis in his right lower extremity, had breakthrough of his atrial fibrillation, heart failure exacerbation, and progression in his chronic kidney disease now requiring dialysis. Cardiology has been reconsulted for A-fib management. He was given an amiodarone bolus and transition to oral amiodarone yesterday. Patient was interviewed and examined resting comfortably in bed. He denies any current chest discomfort. He has having some shortness of breath this morning. GENERAL: Ill-appearing, obese male and in no acute distress. NECK: Supple without JVD or thyromegaly. LUNGS: Breath sounds diminished to auscultation bilaterally. Respiration equal and unlabored. No wheezes, rales or rhonchi. HEART: Irregular rate and rhythm without murmurs, rubs or gallops. S1 and S2 heard. EXTREMITIES: Normal range of motion, +2 lower extremity edema. No clubbing or cyanosis. Peripheral pulses intact and strong. TELEMETRY: Atrial fibrillation with rate controlled in the 80-90's IMPRESSION: Permanent atrial fibrillation, on Eliquis Acute on chronic diastolic heart failure, mainly right sided Acute kidney injury, now chronic Chronic kidney disease stage V, on dialysis Hypertension Dyslipidemia History of DVT Dilated thoracic aorta Valvular heart disease with moderate MR, moderate to severe pulmonary hypertension small pericardial effusion PLAN: Recommend weaning down on midodrine for systolic blood pressure goal greater than 80 as wrist blood pressure readings are likely inaccurate. Mean arterial pressures are consistently above 70 Continue anticoagulation No further recommendations from the cardiac standpoint I am dictating on behalf of Dr Adrian Flores's history/physical and assessment/plan. Objective - Vital Signs Vital signs: Vital Signs Temp 99.4 F 07/26/24 08:00 Pulse 110 H 07/26/24 08:00 Resp 25 H 07/26/24 08:00 BP 94/84 07/26/24 08:00 Pulse Ox 92 L 07/26/24 09:08 FiO2 21 07/22/24 04:00 Intake & Output 07/25/24 07/26/24 07/26/24 18:59 06:59 18:59 Intake Total 25 255 Output Total 5 75 Balance 20 180 Weight 168 kg 169 kg Intake: IV 25 5 Normal Saline as KVO @ 25 5 10mL/hr Oral 250 Output: Urine 5 75 Other: Voiding Method Indwelling Catheter Indwelling Catheter ABP, PAP, CO, CI - Last Documented Arterial Blood Pressure 106/46 - Labs CBC & Chem 7: 07/26/24 05:57 07/26/24 05:57 Labs: Abnormal Lab Results - Last 24 Hours (Table) 07/26/24 07/26/24 Range/Units 05:57 05:57 WBC 13.5 H (3.8-10.6) k/uL RBC 3.03 L (4.30-5.90) m/uL Hgb 10.7 L (13.0-17.5) gm/dL Hct 32.2 L (39.0-53.0) % MCV 106.5 H (80.0-100.0) fL MCH 35.3 H (25.0-35.0) pg RDW 17.4 H (11.5-15.5) % Plt Count 116 L (150-450) k/uL Macrocytosis Marked A Sodium 130 L (137-145) mmol/L Potassium 5.3 H (3.5-5.1) mmol/L Chloride 95 L (98-107) mmol/L BUN 95 H (9-20) mg/dL Creatinine 4.34 H (0.66-1.25) mg/dL Total Bilirubin 3.3 H (0.2-1.3) mg/dL Alkaline Phosphatase 229 H (38-126) U/L Total Protein 5.9 L (6.3-8.2) g/dL Albumin 2.6 L (3.5-5.0) g/dL Microbiology - Last 24 Hours (Table) 07/24/24 12:30 Blood Culture Gram Stain - Preliminary Blood Blood Culture - Preliminary Presumptive MRSA 07/23/24 10:30 Urine Culture - Preliminary Urine,Catheterized Gram Neg Bacilli Group D Enterococcus 07/23/24 10:39 Blood Culture Gram Stain - Preliminary Blood Blood Culture - Preliminary Presumptive MRSA Molecular ID 07/23/24 10:45 Blood Culture Gram Stain - Preliminary Blood Blood Culture - Preliminary Presumptive MRSA
--- NOTE | 2024-07-26 09:59 | P.PN ---
Subjective Patient is seen in follow-up for acute kidney injury on chronic kidney disease. Started on hemodialysis July 06, 2024. Has permacath. Tolerating dialysis well currently. On room air. Vital signs are stable. General: No acute distress. HEENT: Head exam is unremarkable. On room air. LUNGS: No audible rhonchi or wheezes. HEART: Rate and Rhythm are regular. ABDOMEN: Obese, nontender. EXTREMITITES: 2+ edema. Objective - Vital Signs Vital signs: Vital Signs Temp 99.4 F 07/26/24 08:00 Pulse 110 H 07/26/24 08:00 Resp 25 H 07/26/24 08:00 BP 94/84 07/26/24 08:00 Pulse Ox 92 L 07/26/24 09:08 FiO2 21 07/22/24 04:00 Intake & Output 07/25/24 07/26/24 07/26/24 18:59 06:59 18:59 Intake Total 25 255 Output Total 5 75 Balance 20 180 Weight 168 kg 169 kg Intake: IV 25 5 Normal Saline as KVO @ 25 5 10mL/hr Oral 250 Output: Urine 5 75 Other: Voiding Method Indwelling Catheter Indwelling Catheter ABP, PAP, CO, CI - Last Documented Arterial Blood Pressure 106/46 - Labs CBC & Chem 7: 07/26/24 05:57 07/26/24 05:57 Labs: Abnormal Lab Results - Last 24 Hours (Table) 07/26/24 07/26/24 Range/Units 05:57 05:57 WBC 13.5 H (3.8-10.6) k/uL RBC 3.03 L (4.30-5.90) m/uL Hgb 10.7 L (13.0-17.5) gm/dL Hct 32.2 L (39.0-53.0) % MCV 106.5 H (80.0-100.0) fL MCH 35.3 H (25.0-35.0) pg RDW 17.4 H (11.5-15.5) % Plt Count 116 L (150-450) k/uL Macrocytosis Marked A Sodium 130 L (137-145) mmol/L Potassium 5.3 H (3.5-5.1) mmol/L Chloride 95 L (98-107) mmol/L BUN 95 H (9-20) mg/dL Creatinine 4.34 H (0.66-1.25) mg/dL Total Bilirubin 3.3 H (0.2-1.3) mg/dL Alkaline Phosphatase 229 H (38-126) U/L Total Protein 5.9 L (6.3-8.2) g/dL Albumin 2.6 L (3.5-5.0) g/dL Microbiology - Last 24 Hours (Table) 07/24/24 12:30 Blood Culture Gram Stain - Preliminary Blood Blood Culture - Preliminary Presumptive MRSA 07/23/24 10:30 Urine Culture - Preliminary Urine,Catheterized Gram Neg Bacilli Group D Enterococcus 07/23/24 10:39 Blood Culture Gram Stain - Preliminary Blood Blood Culture - Preliminary Presumptive MRSA Molecular ID 07/23/24 10:45 Blood Culture Gram Stain - Preliminary Blood Blood Culture - Preliminary Presumptive MRSA Assessment and Plan Plan: Assessment: 1. Acute kidney injury secondary to ATN secondary to hypotension and cardiorenal syndrome. Creatinine up to 4.3 dated July 06, 2024. Started on hemodialysis July 06, 2024 via femoral dialysis catheter. Now has permacath. No hydronephrosis noted on ultrasound. Trace protein on UA. 2. 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 Creatinine 1.5 in March 2024. 3. Acute on chronic diastolic CHF and moderate mitral consultation, severe tricuspid regurgitation and pulmonary hypertension. 4. Volume overload. Improved with diuresis and ultrafiltration. 5. MRSA bacteremia. ID following. Questionable source. 6. Hypervolemic hyponatremia. Stable. 7. Hyperphosphatemia secondary to acute kidney injury. Phosphorus level 5.0 dated July 12, 2024. On Renvela. Plan: Currently seen while undergoing hemodialysis. Maintain on Wednesday schedule. Status post IV DDAVP given July 24, 2024. Oozing from the permacath site resolved. Low-salt diet and 1500 cc fluid restriction. Maintain midodrine. Avoid nephrotoxins. Continue to monitor renal function and urine output. Will discontinue permacath if advised by ID as it may be the source of his bacteremia. Okay to DC Monzon catheter.
--- NOTE | 2024-07-26 13:04 | P.PN ---
Subjective Progress Note Date: 07/26/24 Principal diagnosis: Acute on chronic right-sided congestive heart failure with chronic hypotension This is a 78-year-old male patient with massive fluid overload, ongoing diffic ulty with chronic kidney failure as the patient has developed an acute on top of chronic renal disease with extensive third spacing and anasarca and possibly a component of cardiorenal syndrome. 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 Baseline creatinine is around 1.5 back in March 2024. The patient presented to us with volume overload, acute on top of chronic diastolic heart failure with moderate mitral regurgitation. Patient also was diagnosed having an Enterococcus urinary tract infection currently on IV Unasyn. Initial rate, attempts to diurese this patient with Lasix have failed due to ongoing hypotension. The patient was started on midodrine 10 mg p.o. 4 times daily. Subsequently, I was asked to transfer this patient to the ICU for hemodynamic support and pressor use as the patient was going to be started on Lasix 5 mg infusion in combination with Zaroxolyn 5 mg p.o. daily. Based on that, the patient was transferred to the ICU. Lasix s drip was started and the patient will be started also on norepinephrine for blood pressure support. He is currently awake and alert. Following commands. He is on oxygen at 2 L/min nasal cannula. His chest x-ray showing small bilateral pleural effusion and this is less x-ray that was done on 06/26/2024. On 07/21/2024, the patient is undergoing hemodialysis. His blood pressure is stable. The patient was taken off the IV Solu-Cortef yesterday. He remains on metoprolol 50 mg p.o. twice daily. He remains in atrial fibrillation. Rate is controlled for now. He is tolerating dialysis reasonably well. No hemodynamic instability and the patient remains on room air oxygen with a pulse ox of 95%. No other significant events overnight. On 07/22/2024, patient is being seen in follow-up. The patient was transferred to the intensive. As the patient became hypotensive and he developed atrial fibrillation with rapid ventricular response. He was placed on a Cardizem drip at 5 mg an hour and currently is off the Cardizem. He also received a total of 1 L of IV fluid normal saline bolus. Subsequently, the patient was started on low-dose norepinephrine and currently norepinephrine is running at 0.03 mcg/kg/min. Last hemodialysis session was on 07/21/2024 and a total of 2.4 L of fluid was removed. He is currently on 3 days of oxygen by nasal cannula. Awake and alert and communicating. Afebrile. White cell count is 16 with a hemoglobin of 11 and a platelet count of 144. BUN is 80 with a creatinine of 3.6. Sodium levels at 133. No respiratory distress. He was taken off the IV hydrocortisone yesterday. Patient was seen today on 07/24/2024, patient is in the ICU, receiving hemodialysis during my evaluation, not requiring any pressors, patient received full course of treatment for his cellulitis and UTI secondary to Enterococcus faecalis, patient is being followed by infectious disease. Repeat blood cultures today are positive for gram-positive cocci in clusters suspected MRSA, infectious disease will be notified and may have to go back on antibio tics/vancomycin. CBC is 13.4 hemoglobin 10.7. Electrolytes are normal except for potassium of 6 which will be corrected after hemodialysis today. BUN is 106 creatinine 4.49 Patient evaluated today on 07/25/2024, patient remains in the ICU, he is on 2 L nasal cannula, not in distress, yesterday I was told about his positive blood cultures showing MRSA patient is now on daptomycin. Patient also had an episode of atrial fibrillation with RVR I bolused the patient with amiodarone, presently on amiodarone drip at 0.5 mg/min, and cardiology will transition his amiodarone today to oral amiodarone. His right lower extremity cellulitis seems to be improving. Patient is on anticoagulation therapy/Eliquis. Not in distress, seems to be doing fairly well overall. Hence considering the patient is hemodynamically stable today, I would likely transfer the patient to a monitored bed on 3 S. today. Patient had ultrafiltration yesterday and 2 L of fluids were removed. WBC count is 13.4 hemoglobin is 10.4 electrolytes showed low sodium of 131 BUN is 82 creatinine 4.08 Was seen today on 07/26/2024, patient is basically the same, remains in the ICU, on room air, not in any distress, undergoing hemodialysis. Blood pressure seems to have stabilized, he is not requiring any pressors, patient is basically an overflow in the ICU, waiting for a bed on 3 S. WBC count is 13.5 hemoglobin 10.7 basic metabolic profile is normal potassium is 5.3 BUN is 95 creatinine 4.34 patient is still undergoing hemodialysis as recommended by nephrology. Seems to be tolerating dialysis quite well, and not requiring pressors at this point. Hemodialysis was started on this patient on July 06 and he has a permacath in place remains on antibiotics for his right lower extremity cellulitis which seems to be improving. Objective - Vital Signs Vital signs: Vital Signs Temp 99.4 F 07/26/24 08:00 Pulse 78 07/26/24 12:00 Resp 21 07/26/24 12:00 BP 92/61 07/26/24 12:00 Pulse Ox 93 L 07/26/24 12:00 FiO2 21 07/22/24 04:00 Intake & Output 07/25/24 07/26/24 07/26/24 18:59 06:59 18:59 Intake Total 25 255 Output Total 5 75 Balance 20 180 Weight 168 kg 169 kg Intake: IV 25 5 Normal Saline as KVO @ 25 5 10mL/hr Oral 250 Output: Urine 5 75 Other: Voiding Method Indwelling Catheter Indwelling Catheter Indwelling Catheter ABP, PAP, CO, CI - Last Documented Arterial Blood Pressure 106/46 - Exam General: Revealed a 78-year-old white male morbidly obese on room air, not in distress Head: Atraumatic, normocephalic Neck positive jugular venous distension, thyromegaly, or carotid bruits. Carotid upstrokes are brisk bilaterally. Lungs: Good breath sound bilaterally slightly diminished at the bases only Cardiac: Distant S1-S2, no S3 gallop, no murmur. Abdominal: Morbidly obese soft nontender no megaly positive abdominal wall edema Extremities trace of + bipedal edema femoral and pedal pulses are normal. Left lower extremity was examined after removing the dressing and there is definite cellulitis and minimal superficial ulceration of the right lower extremity in the mid calf region Neurologically, alert oriented x 3 no gross focal deficits Psychiatric: Normal mood affect and no mental status examination. Skin: Decreased left leg swelling, redness, no open wounds or any drainage - Labs CBC & Chem 7: 07/26/24 05:57 07/26/24 05:57 Labs: Abnormal Lab Results - Last 24 Hours (Table) 07/26/24 07/26/24 Range/Units 05:57 05:57 WBC 13.5 H (3.8-10.6) k/uL RBC 3.03 L (4.30-5.90) m/uL Hgb 10.7 L (13.0-17.5) gm/dL Hct 32.2 L (39.0-53.0) % MCV 106.5 H (80.0-100.0) fL MCH 35.3 H (25.0-35.0) pg RDW 17.4 H (11.5-15.5) % Plt Count 116 L (150-450) k/uL Macrocytosis Marked A Sodium 130 L (137-145) mmol/L Potassium 5.3 H (3.5-5.1) mmol/L Chloride 95 L (98-107) mmol/L BUN 95 H (9-20) mg/dL Creatinine 4.34 H (0.66-1.25) mg/dL Total Bilirubin 3.3 H (0.2-1.3) mg/dL Alkaline Phosphatase 229 H (38-126) U/L Total Protein 5.9 L (6.3-8.2) g/dL Albumin 2.6 L (3.5-5.0) g/dL Microbiology - Last 24 Hours (Table) 07/23/24 10:30 Urine Culture - Preliminary Urine,Catheterized Gram Neg Bacilli Group D Enterococcus 07/23/24 10:45 Blood Culture Gram Stain - Final Blood Blood Culture - Final Methicillin resist S. aureus 07/23/24 10:39 Blood Culture Gram Stain - Final Blood Blood Culture - Final Methicillin resist S. aureus Molecular ID 07/24/24 12:30 Blood Culture Gram Stain - Preliminary Blood Blood Culture - Preliminary Presumptive MRSA Assessment and Plan Assessment: Impression: Acute on chronic diastolic congestive heart failure with hypotension, improving MRSA bacteremia noted on the blood cultures, on daptomycin Hypotension, multifactorial Acute on chronic stage IIIb kidney disease with massive volume overload and initiated on hemodialysis, last hemodialysis session was on 07/21/2024 with 2.4 L of ultrafiltration. Hyperlipidemia Chronic atrial fibrillation, maintained on anticoagulation with Eliquis Enterococcus faecalis urinary tract infection completed Unasyn. Severe pulmonary hypertension Morbid obesity Gout History of obstructive sleep apnea, not tolerant to CPAP therapy Previous history of WPW and SVT Osteoarthritis Previous history of DVT of lower extremities Glaucoma Recommendation: Transfer patient out of the ICU once a bed is available on the cardiac floor Continue oral amiodarone Continue antibiotics/daptomycin Continue hemodialysis/ultrafiltration Continue midodrine not requiring pressors at this point. Will continue to monitor. will eventually require placement/ECF, patient has been in the hospital now for over a month Time with Patient: Less than 30
--- NOTE | 2024-07-27 08:32 | P.PN ---
Subjective Progress Note Date: 07/27/24 This is a 78-year-old male who originally presented to the emergency department after a fall at home, reportedly his knee gave out. Patient also complained of shortness of breath and feels poorly overall. Patient became hypotensive and was transferred to the ICU. Creatinine remains elevated and he has been on Lasix drip. Patient lives with his at home, who he cares for. Patient seen this morning resting comfortably in bed. He is still hypotensive this morning. Creatinine today is 3.77. 07/10/2024 Patient was started on hemodialysis on 07/06. He is currently off of lasix drip but still on pressors. He is seen this morning laying in bed. He reports he is more fatigued today. 07/11/2024 Patient seen and evaluated laying in bed this morning. He is still on Levophed. Creatinine today is 3.3. He does appear more fatigued today. He did have dialysis yesterday. 07/13/2024 Patient seen and evaluated laying in bed this morning. He still remains on Levophed. He had dialysis yesterday. Creatinine today is 2.97. Patient appears to be in better spirits today. 07/17/2024 Patient seen and evaluated laying in bed this morning eating breakfast. He is currently off of Levophed and pressure is holding. Dialysis is now on a Wednesday schedule. Creatinine is 4.52 today. 07/24/2024 Patient seen and evaluated resting comfortably in bed this morning. He was back on pressors over the weekend but is currently off of pressors and maintained on midodrine. Plan is for dialysis today. 07/25/2024 Patient seen and evaluated laying in bed this morning. Blood pressure has been holding, maintained on midodrine. Yesterday blood cultures were positive and he was started on daptomycin. Patient appears more fatigued today. 07/27/2024 Patient seen and evaluated laying in bed this morning. Monzon catheter was removed yesterday. He was transferred to a medical floor yesterday. Blood pressure still low but stable. Patient working with therapy to increase strength to be able to sit in chair for dialysis. Objective - Vital Signs Vital signs: Vital Signs Temp 97.6 F 07/27/24 07:33 Pulse 78 07/27/24 07:33 Resp 18 07/27/24 07:33 BP 95/62 07/27/24 07:33 Pulse Ox 97 07/27/24 07:33 FiO2 21 07/22/24 04:00 Intake & Output 07/26/24 07/27/24 07/27/24 18:59 06:59 18:59 Intake Total 630 140 Output Total 5415 0 Balance -4785 140 Intake: IV 50 40 DAPTOmycin 700 mg In 50 Sodium Chloride 0.9% 50 ml @ 100 mls/hr IVPB Q48H SOFI Rx#:[id number] Normal Saline as KVO @ 40 10mL/hr Oral 180 100 Hemodialysis 400 Output: Urine 15 0 Hemodialysis 2900 Hemodialysis Net Amount 2500 Other: Voiding Method Indwelling Catheter Urinal # Voids 0 ABP, PAP, CO, CI - Last Documented Arterial Blood Pressure 106/46 - Constitutional General appearance: Present: cooperative, no acute distress - EENT Eyes: Present: PERRLA - Neck Neck: Present: normal ROM. Absent: lymphadenopathy, rigidity - Respiratory Respiratory: bilateral: CTA - Cardiovascular Heart sounds: normal: S1, S2 - Gastrointestinal General gastrointestinal: Present: soft. Absent: tenderness - Integumentary Integumentary: Present: normal turgor - Musculoskeletal Musculoskeletal: Present: generalized weakness - Psychiatric Psychiatric: Present: A&O x's 3 - Labs CBC & Chem 7: 07/26/24 05:57 07/26/24 05:57 Labs: Microbiology - Last 24 Hours (Table) 07/26/24 05:57 Blood Culture Gram Stain - Preliminary Blood 07/24/24 12:30 Blood Culture Gram Stain - Final Blood Blood Culture - Final Methicillin resist S. aureus 07/23/24 10:30 Urine Culture - Preliminary Urine,Catheterized Citrobacter braakii Group D Enterococcus 07/23/24 10:45 Blood Culture Gram Stain - Final Blood Blood Culture - Final Methicillin resist S. aureus 07/23/24 10:39 Blood Culture Gram Stain - Final Blood Blood Culture - Final Methicillin resist S. aureus Molecular ID Assessment and Plan (1) Hypotension Current Visit: Yes Status: Acute Code(s): I95.9 - HYPOTENSION, UNSPECIFIED SNOMED Code(s): 73688490 (2) Weakness Current Visit: Yes Status: Acute Code(s): R53.1 - WEAKNESS SNOMED Code(s): 36457704 (3) Cellulitis Current Visit: Yes Status: Acute Code(s): L03.90 - CELLULITIS, UNSPECIFIED SNOMED Code(s): 965511517 (4) Acute kidney injury Current Visit: Yes Status: Acute Code(s): N17.9 - ACUTE KIDNEY FAILURE, UNSPECIFIED SNOMED Code(s): 11975167 (5) Acute on chronic heart failure Current Visit: Yes Status: Acute Code(s): I50.9 - HEART FAILURE, UNSPECIFIED SNOMED Code(s): 371606702 (6) Hyponatremia Current Visit: Yes Status: Acute Code(s): E87.1 - HYPO-OSMOLALITY AND HYPONATREMIA SNOMED Code(s): 03877674 (7) MRSA bacteremia Current Visit: Yes Status: Acute Code(s): R78.81 - BACTEREMIA; B95.62 - METHICILLIN RESIS STAPH INFCT CAUSING DISEASES [facility] SNOMED Code(s): 1 [id number] Plan: Check CBC and CMP in the morning. Appreciate multiple consultants. Continue to work with therapy as able to increase strength. Patient seen and evaluated by nurse practitioner, physician in agreement with plan
--- NOTE | 2024-07-27 09:01 | P.PN ---
Subjective Progress Note Date: 07/26/24 Principal diagnosis: Reason for follow-up is left leg cellulitis Patient is a 78-year-old male with a past medical history significant for atrial fibrillation hypertension hyperlipidemia osteoarthritis sleep apnea presenting to the hospital for evaluation of weakness and fall patient was initially treated for cellulitis UTI and subsequently signed off and the patient has been in the hospital undergoing treatment for his acute renal failure patient did have a dialysis catheter placement and is undergoing dialysis patient was running a low-grade fever blood culture has been obtained which came back positive with MRSA prompting reevaluation for this bacteremia. On today's evaluation that is 07/26/2024, Patient is afebrile this morning patient denies having any chest pain shortness of breath or cough, the patient is currently on room air, patient denies any abdominal pain no diarrhea no nausea no vomiting, patient is off the pressors upon admission feeling slightly better. Patient white count is 13.5 creatinine is 4.34 blood culture remains to be positive Objective - Vital Signs Vital signs: Vital Signs Temp 99.4 F 07/26/24 08:00 Pulse 110 H 07/26/24 08:00 Resp 25 H 07/26/24 08:00 BP 94/84 07/26/24 08:00 Pulse Ox 92 L 07/26/24 09:08 FiO2 21 07/22/24 04:00 Intake & Output 07/25/24 07/26/24 07/26/24 18:59 06:59 18:59 Intake Total 25 255 Output Total 5 75 Balance 20 180 Weight 168 kg 169 kg Intake: IV 25 5 Normal Saline as KVO @ 25 5 10mL/hr Oral 250 Output: Urine 5 75 Other: Voiding Method Indwelling Catheter Indwelling Catheter Indwelling Catheter ABP, PAP, CO, CI - Last Documented Arterial Blood Pressure 106/46 - Exam GENERAL DESCRIPTION: An elderly male lying in bed in no distress RESPIRATORY SYSTEM: Unlabored breathing , decreased breath sounds at bases HEART: S1 S2 regular rate and rhythm , ABDOMEN: Soft , no tenderness EXTREMITIES: Bilateral extremity swelling no redness - Labs CBC & Chem 7: 07/26/24 05:57 07/26/24 05:57 Labs: Abnormal Lab Results - Last 24 Hours (Table) 07/26/24 07/26/24 Range/Units 05:57 05:57 WBC 13.5 H (3.8-10.6) k/uL RBC 3.03 L (4.30-5.90) m/uL Hgb 10.7 L (13.0-17.5) gm/dL Hct 32.2 L (39.0-53.0) % MCV 106.5 H (80.0-100.0) fL MCH 35.3 H (25.0-35.0) pg RDW 17.4 H (11.5-15.5) % Plt Count 116 L (150-450) k/uL Macrocytosis Marked A Sodium 130 L (137-145) mmol/L Potassium 5.3 H (3.5-5.1) mmol/L Chloride 95 L (98-107) mmol/L BUN 95 H (9-20) mg/dL Creatinine 4.34 H (0.66-1.25) mg/dL Total Bilirubin 3.3 H (0.2-1.3) mg/dL Alkaline Phosphatase 229 H (38-126) U/L Total Protein 5.9 L (6.3-8.2) g/dL Albumin 2.6 L (3.5-5.0) g/dL Microbiology - Last 24 Hours (Table) 07/24/24 12:30 Blood Culture Gram Stain - Preliminary Blood Blood Culture - Preliminary Presumptive MRSA 07/23/24 10:30 Urine Culture - Preliminary Urine,Catheterized Gram Neg Bacilli Group D Enterococcus 07/23/24 10:39 Blood Culture Gram Stain - Preliminary Blood Blood Culture - Preliminary Presumptive MRSA Molecular ID 07/23/24 10:45 Blood Culture Gram Stain - Preliminary Blood Blood Culture - Preliminary Presumptive MRSA Assessment and Plan (1) MRSA bacteremia Current Visit: Yes Status: Acute Code(s): R78.81 - BACTEREMIA; B95.62 - METHICILLIN RESIS STAPH INFCT CAUSING DISEASES CLASSD ELSR SNOMED Code(s): 64031930005264603 (2) Sepsis Current Visit: Yes Status: Acute Code(s): A41.9 - SEPSIS, UNSPECIFIED ORGANISM SNOMED Code(s): 95890954 Plan: 1patient with sepsis in this patient who did have a fever elevated white count hypotension requiring pressor support and now with evidence of MRSA bacteremia likely the source of the sepsis and possible related to his dialysis catheter 2-patient did have persistent bacteremia and the blood cultures from the dialysis catheter also positive highly suspicious for dialysis catheter infection discussed with the nephrology for removal of the dialysis catheter submitted for the culture we will continue patient on daptomycin once he cleared his bacteremia to get a new permacatheter Dictation was produced using [employer] dictation software. please excuse any grammatical, word or spelling errors. Time with Patient: Less than 30
--- NOTE | 2024-07-27 11:28 | P.PN ---
Subjective Patient is seen in follow-up for acute kidney injury on chronic kidney disease. Started on hemodialysis July 06, 2024. Has permacath. Tolerated 2.5 L ultrafiltration yesterday. Currently on room air. Vital signs are stable. General: No acute distress. HEENT: Head exam is unremarkable. On room air. LUNGS: No audible rhonchi or wheezes. HEART: Rate and Rhythm are regular. ABDOMEN: Obese, nontender. EXTREMITITES: 2+ edema. Objective - Vital Signs Vital signs: Vital Signs Temp 97.6 F 07/27/24 07:33 Pulse 78 07/27/24 10:32 Resp 18 07/27/24 07:33 BP 95/62 07/27/24 07:33 Pulse Ox 97 07/27/24 07:33 FiO2 21 07/22/24 04:00 Intake & Output 07/26/24 07/27/24 07/27/24 18:59 06:59 18:59 Intake Total 630 140 180 Output Total 5415 0 Balance -4785 140 180 Intake: IV 50 40 DAPTOmycin 700 mg In 50 Sodium Chloride 0.9% 50 ml @ 100 mls/hr IVPB Q48H [facility] Rx#:[id number] Normal Saline as KVO @ 40 10mL/hr Oral 180 100 180 Hemodialysis 400 Output: Urine 15 0 Hemodialysis 2900 Hemodialysis Net Amount 2500 Other: Voiding Method Indwelling Catheter Urinal Urinal # Voids 0 ABP, PAP, CO, CI - Last Documented Arterial Blood Pressure 106/46 - Labs CBC & Chem 7: 07/26/24 05:57 07/26/24 05:57 Labs: Microbiology - Last 24 Hours (Table) 07/26/24 12:47 Blood Culture Gram Stain - Preliminary Blood 07/26/24 05:57 Blood Culture Gram Stain - Preliminary Blood 07/24/24 12:30 Blood Culture Gram Stain - Final Blood Blood Culture - Final Methicillin resist S. aureus 07/23/24 10:30 Urine Culture - Preliminary Urine,Catheterized Citrobacter braakii Group D Enterococcus 07/23/24 10:45 Blood Culture Gram Stain - Final Blood Blood Culture - Final Methicillin resist S. aureus 07/23/24 10:39 Blood Culture Gram Stain - Final Blood Blood Culture - Final Methicillin resist S. aureus Molecular ID Assessment and Plan Plan: Assessment: 1. Acute kidney injury secondary to ATN secondary to hypotension and cardiorenal syndrome. Creatinine up to 4.3 dated July 06, 2024. Started on hemodialysis July 06, 2024 via femoral dialysis catheter. Now has permacath. No hydronephrosis noted on ultrasound. Trace protein on UA. 2. 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 Creatinine 1.5 in March 2024. 3. Acute on chronic diastolic CHF and moderate mitral consultation, severe tricuspid regurgitation and pulmonary hypertension. 4. Volume overload. Improved with diuresis and ultrafiltration. 5. MRSA bacteremia. ID following. Questionable source. 6. Hypervolemic hyponatremia. Stable. 7. Hyperphosphatemia secondary to acute kidney injury. Phosphorus level 5.0 dated July 12, 2024. On Renvela. Plan: Last hemodialysis was July 26, 2024. Status post IV DDAVP given July 24, 2024. Oozing from the permacath site resolved. Low-salt diet and 1500 cc fluid restriction. Maintain midodrine. Avoid nephrotoxins. Continue to monitor renal function and urine output. Monzon catheter removed July 26, 2024. It was discussed in detail yesterday with the ICU nurse, HD nurse, as well as infectious disease that patient's dialysis catheter will be removed and the tip will be sent for culture after HD completed yesterday. However this is not get done and it is unclear why after I discussed with the RN today. I will dialyze the patient today and then remove his dialysis catheter after treatment is completed today. New permacath will be placed once cleared by infectious disease.
--- NOTE | 2024-07-27 13:54 | P.PN ---
Subjective Progress Note Date: 07/27/24 This is a 78-year-old male patient with massive fluid overload, ongoing difficulty with chronic kidney failure as the patient has developed an acute on top of chronic renal disease with extensive third spacing and anasarca and possibly a component of cardiorenal syndrome. 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 Baseline creatinine is around 1.5 back in March 2024. The patient presented to us with volume overload, acute on top of chronic diastolic heart failure with moderate mitral regurgitation. Patient also was diagnosed having an Enterococcus urinary tract infection currently on IV Unasyn. Initial rate, attempts to diurese this patient with Lasix have failed due to ongoing hypotension. The patient was started on midodrine 10 mg p.o. 4 times daily. Subsequently, I was asked to transfer this patient to the ICU for hemodynamic support and pressor use as the patient was going to be started on Lasix 5 mg infusion in combination with Mala oxolyn 5 mg p.o. daily. Based on that, the patient was transferred to the ICU. Lasix s drip was started and the patient will be started also on norepinephrine for blood pressure support. He is currently awake and alert. Following commands. He is on oxygen at 2 L/min nasal cannula. His chest x-ray showing small bilateral pleural effusion and this is less x-ray that was done on 06/26/2024. Patient was evaluated today on 07/03/24, remains in the ICU, he was seen by Dr. Jp nance on consultation yesterday, he was placed on Lasix drip at 5 mg/h, making about 50 to 75 cc of urine per hour. Blood pressure is marginal he is requiring norepinephrine at 0.06 mcg/kg/min. Patient is not complaining of shortness of breath, he is on 2 L nasal cannula, he seems to be extremely swollen edematous and has anasarca. Nonetheless the patient is feeling better compared to yesterday. And seemsto be responding to the Lasix drip. WBC count is 8.4 hemoglobin 12.2 electrolytes are normal BUN is 92 creatinine 3.53., Relatively unchanged compared to yesterday.Patient's baseline creatinine on 06/26 was 2.19. Patient is receiving Unasyn for what seems to be acute urinary tract infection secondary to Enterococcus. Faecalis. Patient was evaluated today on 07/04/2024, remains in the ICU remains on Lasix drip and dose has been increased to 10 mg/h. Patient is requiring norepinephrine at 0.07 mcg/kg/min he is also on IV fluid at KVO. Antibiotics cooley he is on Unasyn for his UTI, and is also on Eliquis. Patient tells me that he is feeling better, breathing easier, and he continues to respond to Lasix but urine output did not improve much by increasing the dose of Lasix., WBC is 8.4 hemoglobin 11.9 basic metabolic profile is normal bicarb is 27 BUN is 95 creatinine 3.77 Gradually rising. His renal status is being addressed and followed by nephrology chest x-ray showed evidence of cardiomegaly and pulmonary vascular congestion. Patient remains on 2 L nasal cannula, and he is O2 saturat ion is 97%. Blood pressure is marginal, his mean arterial pressure is 68, patient is requiring norepinephrine Patient today on 07/05/2024, patient is not doing too great today. Patient is getting worse, he is developing worsening hypotension and requiring now higher doses of norepinephrine and higher doses of vasopressin. Patient required lines including central line and arterial line, and these were done today. Urine output remains about 35 to 40 cc/h, in spite of Lasix at 10 mg/h. His renal functioning is getting worse creatinine is up to 3.9 today. Again the patient is requiring norepinephrine and we have added vasopressin, patient seems to be developing acute kidney injury with ATN and hypotension as well as cardiorenal syndrome. Nephrology is considering to proceed with renal replacement therapy since the patient continues to remain volume overloaded. And urine output is not that great. His creatinine baseline in March was 1.5. Looking at his echocardiogram, patient has chronic diastolic congestive heart failure with moderate mitral regurgitation, and severe pulmonary hypertension. Patient is also receiving antibiotics for his right lower extremity cellulitis, in addition he has Enterococcus urinary tract infection addressed by infectious disease on the case.WBC count is 7.1 hemoglobin is 11.1 basic metabolic profile is normal bicarb is 23 BUN is 101 creatinine 3.94. Chest x-ray is showing worsening pleural effusion and pulmonary edema Reevaluate today on 07/06/2024, patient remains in the ICU, still on pressors requiring norepinephrine at 0.24 mcg/kg/min, patient did not require vasopressin yesterday. Still on midodrine. A right femoral dialysis catheter was placed yesterday by vascular surgery. Patient is supposed to be started on hemodialysis today. Clinically today, he seems to be feeling better compared to yesterday.Denies any cough wheezing or shortness of breath, patient feels generally weak. WBC count is 7.9 hemoglobin 11.8 electrolytes are normal BUN is 102 creatinine 4.31 patient remains on Lasix drip at 10 mg/h, and the plan is to hemodialyze today Patient was evaluated today on 07/07/2024, patient remains in the ICU on 2 L nasal cannula patient underwent hemodialysis yesterday and 2 L were removed. His BUN is 90 creatinine 4.13. Remains on Lasix drip at 10 mg/h he is still requiring norepinephrine at 0.21 mcg/kg/min, blood pressure remains marginal at best. Patient is still covered with Unasyn still on Eliquis, patient was placed on Lopressor at 100 mg p.o. or twice daily by cardiology his echocardiogram showed significant valvular heart disease, pulmonary hypertension, ejection fraction is 50 to 55%. Patient is complaining today of some bloating and abdominal discomfort, but no nausea no vomiting. No significant pain. WBC count today is 8.2 hemoglobin 11.3 electrolytes are normal BUN is 90 creatinine 4.13, chest x-ray showed mild pulmonary vascular congestion Patient was evaluated today on 07/08/2024, patient remains in the ICU still requiring pressors, he is on norepinephrine at 0.22 mcg/kg/min blood pressure remains marginal, patient is intermittently getting hemodialysis, remains on multiple cardiac meds but he is off Lasix drip at this point. Pulmonary cooley he is on 2 L nasal cannula, does not seem to be in distress. Chest x-ray today showed minimal right basilar atelectasis, no evidence of pulmonary edema. Apparently the patient did not tolerate hemodialysis treatment yesterday well, because of low blood pressure. WBC count is 9.3 hemoglobin 11.4 basic metabolic profile is normal BUN is 82 creatinine 3.49 Patient was seen today on 07/09/2024, patient remains in the ICU, remains on nor epinephrine and he is intermittently on hemodialysis. Off Lasix drip. On 3 L nasal cannula, on norepinephrine 0.13 mcg/kg/min on midodrine on IV fluid at KVO. Patient is also on Eliquis. Urine output is about 25 to 40 cc/h. His CVP is 15 patient had 2 L removed by hemodialysis on 07/08 and his CVP today is ranging between 12-15. Pulmonary cooley is not in distress, however his blood pressure remains extremely low requiring pressors hence I cannot move the patient out of the ICU as long as he is on pressors The patient is seen today July 10, 2024 in follow-up in the intensive care unit. Awake and alert in no acute distress. Currently resting fairly comfortably in bed. He is maintaining good O2 saturations in the 90s on 2 L/min per nasal cannula. He is still requiring norepinephrine at 20 mcg/min. Normal saline at KVO. Urine culture was positive for Enterococcus faecalis. Blood cultures revealed no growth. White count 10.1. Hemoglobin 11.4. Sodium 133. Potassium 4.3. Bicarb 26. BUN 83. Creatinine 3.79. Glucose 104. He is continued on Lasix 60 mg every 12 hours. Anticoagulated with Eliquis. Remains on midodrine 10 mg 4 times daily. The patient is seen today July 11, 2024 in follow-up in the intensive care unit. He is currently resting in bed. Awake and alert in no acute distress. Currently undergoing hemodialysis. He is still requiring norepinephrine at 0.17 mcg/kg/min. He has normal saline at KVO. He is maintaining O2 saturation in the 90s on 2 L/min per nasal cannula. His TSH did come back abnormal at 6.87, cortisol level was 8.8. He will be initiated on Synthroid 75 mcg IV daily and Solu-Cortef 50 mg IV every 6 hours. Continued on midodrine. He remains on Lasix 60 mg IV every 12 hours. Anticoagulated with Eliquis. White count 8.4. Hemoglobin 11.1. Platelets 169. Sodium 133. Potassium 4.2. Bicarb 27. BUN 67. Creatinine 3.30. Glucose 102. The patient is seen today July 12, 2024 in follow-up in the intensive care unit. He is awake and alert in no acute distress. Currently receiving hemodialysis with another 2 L planned to be removed. He is continued on norepinephrine down to 17 mcg/min. He had been initiated on Synthroid and Solu- Cortef with improvement in his blood pressure. White count 7.3. Hemoglobin 10.8. Platelets 151. Sodium 133. Potassium 4.2. Bicarb 27. BUN 66. Creatinine 3.31. Glucose 130. He remains on IV diuretics. Anticoagulated with Eliquis. Currently in a -3.7 L balance. The patient is seen today July 13, 2024 in follow-up in the intensive care unit. He is resting comfortably in bed. Awake and alert in no acute distress. Maintaining O2 saturations in the 90s on 2 L/min per nasal cannula. He has normal saline at 10 mL/h. He is still requiring norepinephrine at 14 mcg/min. He is continued on Synthroid and Solu-Cortef. White count 12.4. Hemoglobin 11.5. Platelets 236. Sodium 132. Potassium 4.0. Bicarb 28. BUN 65. Creatinine 2.97. Glucose 116. He remains on Lasix 60 mg IV every 12 hours. Currently in a positive balance. Plan is for hemodialysis again tomorrow. The patient is seen today July 14, 2024 in follow-up in the intensive care unit. He is currently awake and alert in no acute distress resting comfortably in bed. Maintaining good O2 saturations in the 90s on room air. He is currently receiving hemodialysis with a goal of 2 L to be removed today. He is still requiring norepinephrine at 7 mcg/min. He is continued on Lasix 60 mg every 12 hours. He remains on Synthroid and Solu-Cortef. Also continued on midodrine. Urine culture was positive for Enterococcus faecalis. Blood cultures revealed no growth. White count 10.2. Hemoglobin 10.6. Platelets 182. Sodium 132. Potassium 4.2. Bicarb 26. BUN 79. Creatinine 3.85. Glu cose 109. The patient is seen today July 15, 2024 in follow-up in the intensive care unit. He is resting comfortably in bed. Awake and alert in no acute distress. Maintaining good O2 saturations in the 90s on room air. He is still requiring norepinephrine currently at 12 mcg/min. He is continued on Solu-Cortef, Synthroid, midodrine. He remains on IV diuretics per nephrology. He received hemodialysis yesterday with 2 L removed. Chest x-ray revealed chronic changes without evidence of acute pulmonary process. He did have a right internal jugular hemodialysis catheter placed yesterday. Femoral catheter was removed. Urine culture was positive for Enterococcus faecalis. Blood cultures revealed no growth. White count 8.0. Hemoglobin 10.5. Platelets 185. Sodium 132. Potassium 4.2. Bicarb 26. BUN 67. Creatinine 3.46. Glucose 113. The patient is seen today July 16, 2024 in follow-up in the intensive care unit. He is awake and alert in no acute distress. Resting comfortably in bed. Maintaining good O2 saturations in the 90s on room air. His norepinephrine is currently off. He is continued on midodrine. He is anticoagulated with Eliquis. Plan is for hemodialysis tomorrow and to continue a Wednesday schedule. White count 9.4. Hemoglobin 10.5. Platelets 226. Sodium 131. Potassium 4.7. Bicarb 25. BUN 86. Creatinine 4.1. Glucose 114. He remains on a low-salt diet and 1500 cc fluid restriction. IV Lasix discontinued per nephrology. The patient is seen today at July 27 2024 in follow-up on the selective care unit. He was transferred out of the intensive care unit yesterday. He is currently awake and alert in no acute distress. He is maintaining good O2 saturations in the 90s on room air. Follow-up blood cultures are revealing no growth to date. Previous blood cultures are positive for MRSA. He is continued on daptomycin. He is anticoagulated with Eliquis. His hemodialysis catheter remains in place. The plan is for hemodialysis again today. He remains on a low-salt diet with 1500 cc fluid restriction. He is continued on midodrine. Current blood pressure 119/74 with a mean of 89. Objective - Vital Signs Vital signs: Vital Signs Temp 97.3 F L 07/27/24 11:17 Pulse 95 07/27/24 11:17 Resp 18 07/27/24 11:17 BP 119/74 07/27/24 11:17 Pulse Ox 96 07/27/24 11:17 FiO2 21 07/22/24 04:00 Intake & Output 07/26/24 07/27/24 07/27/24 18:59 06:59 18:59 Intake Total 630 140 180 Output Total 5415 0 Balance -4785 140 180 Intake: IV 50 40 DAPTOmycin 700 mg In 50 Sodium Chloride 0.9% 50 ml @ 100 mls/hr IVPB Q48H [facility] Rx#:[id number] Normal Saline as KVO @ 40 10mL/hr Oral 180 100 180 Hemodialysis 400 Output: Urine 15 0 Hemodialysis 2900 Hemodialysis Net Amount 2500 Other: Voiding Method Indwelling Catheter Urinal Urinal # Voids 0 0 ABP, PAP, CO, CI - Last Documented Arterial Blood Pressure 106/46 - Exam GENERAL EXAM: Alert, very pleasant 78-year-old male, resting in bed, on room air, in no acute distress. EYES: Normal reaction of pupils, equal size. NOSE: Clear with pink turbinates. THROAT: No erythema or exudates. NECK: No masses, no JVD. Hemodialysis catheter in place. CHEST: No chest wall deformity. LUNGS: Equal air entry with crackles in the right lung base. CVS: S1 and S2 normal with no audible murmur, regular rhythm. ABDOMEN: No hepatosplenomegaly, normal bowel sounds, no guarding or rigidity. SPINE: No scoliosis or deformity SKIN: No rashes CENTRAL NERVOUS SYSTEM: No focal deficits, tone is normal in all 4 extremities. EXTREMITIES: There is no peripheral edema. No clubbing, no cyanosis. Peripheral pulses are intact. - Labs CBC & Chem 7: 07/26/24 05:57 07/26/24 05:57 Labs: Microbiology - Last 24 Hours (Table) 07/23/24 10:30 Urine Culture - Preliminary Urine,Catheterized Vijaya albicans Citrobacter braakii Group D Enterococcus 07/26/24 12:47 Blood Culture Gram Stain - Preliminary Blood 07/26/24 05:57 Blood Culture Gram Stain - Preliminary Blood 07/24/24 12:30 Blood Culture Gram Stain - Final Blood Blood Culture - Final Methicillin resist S. aureus 07/23/24 10:45 Blood Culture Gram Stain - Final Blood Blood Culture - Final Methicillin resist S. aureus 07/23/24 10:39 Blood Culture Gram Stain - Final Blood Blood Culture - Final Methicillin resist S. aureus Molecular ID Assessment and Plan Assessment: Acute on chronic diastolic congestive heart failure with hypotension, requiring pressors covered and transferred out of the intensive care unit yesterday Acute on chronic stage IIIb kidney disease with massive volume overload and initiated on hemodialysis Bacteremia secondary to MRSA currently on daptomycin Hyperlipidemia Chronic atrial fibrillation, maintained on anticoagulation with Eliquis Enterococcus faecalis urinary tract infection completed Unasyn Severe pulmonary hypertension Morbid obesity Gout History of obstructive sleep apnea, not tolerant to CPAP therapy Previous history of WPW and SVT Osteoarthritis Previous history of DVT of lower extremities Glaucoma Plan: The patient was seen and evaluated Currently stable and on room air Labs and medications reviewed Receiving hemodialysis again today Plan is to then remove the catheter Awaiting clear blood cultures before reinsertion Remains on daptomycin Will need subacute rehab and hemodialysis at discharge I have personally seen and examined the patient, performed the documentation and the assessment and plan as written. Number of minutes spent on the visit: 10. Dictation was produced using [employer] dictation software. Please excuse any grammatical, word or spelling errors.
--- NOTE | 2024-07-27 13:57 | P.PN ---
Subjective Progress Note Date: 07/27/24 The patient is a 78-year-old male who follows in the office with Dr. Peter who is currently admitted to the hospital after a fall. The patient developed a cellulitis in his right lower extremity, had breakthrough of his atrial fibrillation, heart failure exacerbation, and progression in his chronic kidney disease now requiring dialysis. Cardiology has been reconsulted for A-fib management. He was given an amiodarone bolus and transition to oral amiodarone yesterday. Patient was interviewed and examined resting comfortably in bed. He has been transferred to the cardiac stepdown unit. He denies any current chest discomfort. He has having some shortness of breath this morning. Patient remains in atrial fibrillation with controlled rate in the 90s. Blood pressure is on the lower side at 95/62. GENERAL: Ill-appearing, obese male and in no acute distress. NECK: Supple without JVD or thyromegaly. LUNGS: Breath sounds diminished to auscultation bilaterally. Respiration equal and unlabored. No wheezes, rales or rhonchi. HEART: Irregular rate and rhythm without murmurs, rubs or gallops. S1 and S2 heard. EXTREMITIES: Normal range of motion, +2 lower extremity edema. No clubbing or cyanosis. Peripheral pulses intact and strong. TELEMETRY: Atrial fibrillation with rate controlled in the 80-'s IMPRESSION: Permanent atrial fibrillation, on Eliquis Acute on chronic diastolic heart failure, mainly right sided Acute kidney injury, now chronic Chronic kidney disease stage V, on dialysis Hypertension Dyslipidemia History of DVT Dilated thoracic aorta Valvular heart disease with moderate MR, moderate to severe pulmonary hypertension small pericardial effusion PLAN: Recommend weaning down on midodrine for systolic blood pressure goal greater than 80 as wrist blood pressure readings are likely inaccurate. Mean arterial pressures are consistently above 70 Continue anticoagulation Continue patient on amiodarone 200 mg twice daily while hospitalized and at the time of discharge, 200 mg daily. Patient will follow-up with Dr. Deleon in the outpatient setting. No further recommendations from the cardiac standpoint I am dictating on behalf of Dr Adrian Flores's history/physical and assessment/plan. Objective - Vital Signs Vital signs: Vital Signs Temp 97.6 F 07/27/24 07:33 Pulse 78 07/27/24 07:33 Resp 18 07/27/24 07:33 BP 95/62 07/27/24 07:33 Pulse Ox 97 07/27/24 07:33 FiO2 21 07/22/24 04:00 Intake & Output 07/26/24 07/27/24 07/27/24 18:59 06:59 18:59 Intake Total 630 140 Output Total 5415 0 Balance -4785 140 Intake: IV 50 40 DAPTOmycin 700 mg In 50 Sodium Chloride 0.9% 50 ml @ 100 mls/hr IVPB Q48H [facility] Rx#:[id number] Normal Saline as KVO @ 40 10mL/hr Oral 180 100 Hemodialysis 400 Output: Urine 15 0 Hemodialysis 2900 Hemodialysis Net Amount 2500 Other: Voiding Method Indwelling Catheter Urinal Urinal # Voids 0 ABP, PAP, CO, CI - Last Documented Arterial Blood Pressure 106/46 - Labs CBC & Chem 7: 07/26/24 05:57 07/26/24 05:57 Labs: Microbiology - Last 24 Hours (Table) 07/26/24 05:57 Blood Culture Gram Stain - Preliminary Blood 07/24/24 12:30 Blood Culture Gram Stain - Final Blood Blood Culture - Final Methicillin resist S. aureus 07/23/24 10:30 Urine Culture - Preliminary Urine,Catheterized Citrobacter braakii Group D Enterococcus 07/23/24 10:45 Blood Culture Gram Stain - Final Blood Blood Culture - Final Methicillin resist S. aureus 07/23/24 10:39 Blood Culture Gram Stain - Final Blood Blood Culture - Final Methicillin resist S. aureus Molecular ID
--- NOTE | 2024-07-27 18:04 | P.PN ---
Subjective Progress Note Date: 07/27/24 Principal diagnosis: Reason for follow-up is left leg cellulitis Patient is a 78-year-old male with a past medical history significant for atrial fibrillation hypertension hyperlipidemia osteoarthritis sleep apnea presenting to the hospital for evaluation of weakness and fall patient was initially treated for cellulitis UTI and subsequently signed off and the patient has been in the hospital undergoing treatment for his acute renal failure patient did have a dialysis catheter placement and is undergoing dialysis patient was running a low-grade fever blood culture has been obtained which came back positive with MRSA prompting reevaluation for this bacteremia. On today's evaluation that is 07/27/2024,the patient denies any fever or any chills, patient is breathing comfortably on room air, the patient denies chest pain shortness of breath and no significant cough, patient denies abdominal pain, no nausea vomiting or diarrhea. No new symptoms. Patient white count is 13.5 creatinine is 4.34 blood culture repeated yesterday currently pending Objective - Vital Signs Vital signs: Vital Signs Temp 97.6 F 07/27/24 07:33 Pulse 78 07/27/24 07:33 Resp 18 07/27/24 07:33 BP 95/62 07/27/24 07:33 Pulse Ox 97 07/27/24 07:33 FiO2 21 07/22/24 04:00 Intake & Output 07/26/24 07/27/24 07/27/24 18:59 06:59 18:59 Intake Total 630 140 Output Total 5415 0 Balance -4785 140 Intake: IV 50 40 DAPTOmycin 700 mg In 50 Sodium Chloride 0.9% 50 ml @ 100 mls/hr IVPB Q48H [facility] Rx#:[id number] Normal Saline as KVO @ 40 10mL/hr Oral 180 100 Hemodialysis 400 Output: Urine 15 0 Hemodialysis 2900 Hemodialysis Net Amount 2500 Other: Voiding Method Indwelling Catheter Urinal # Voids 0 ABP, PAP, CO, CI - Last Documented Arterial Blood Pressure 106/46 - Exam GENERAL DESCRIPTION: An elderly male lying in bed in no distress RESPIRATORY SYSTEM: Unlabored breathing , decreased breath sounds at bases HEART: S1 S2 regular rate and rhythm , ABDOMEN: Soft , no tenderness EXTREMITIES: Bilateral extremity swelling no redness - Labs CBC & Chem 7: 07/26/24 05:57 07/26/24 05:57 Labs: Microbiology - Last 24 Hours (Table) 07/26/24 05:57 Blood Culture Gram Stain - Preliminary Blood 07/24/24 12:30 Blood Culture Gram Stain - Final Blood Blood Culture - Final Methicillin resist S. aureus 07/23/24 10:30 Urine Culture - Preliminary Urine,Catheterized Citrobacter braakii Group D Enterococcus 07/23/24 10:45 Blood Culture Gram Stain - Final Blood Blood Culture - Final Methicillin resist S. aureus 07/23/24 10:39 Blood Culture Gram Stain - Final Blood Blood Culture - Final Methicillin resist S. aureus Molecular ID Assessment and Plan (1) MRSA bacteremia Current Visit: Yes Status: Acute Code(s): R78.81 - BACTEREMIA; B95.62 - METHICILLIN RESIS STAPH INFCT CAUSING DISEASES CLASSD [id number] SNOMED Code(s): 76527096926944325 (2) Sepsis Current Visit: Yes Status: Acute Code(s): A41.9 - SEPSIS, UNSPECIFIED ORGANISM SNOMED Code(s): 81759505 Plan: 1patient with sepsis in this patient who did have a fever elevated white count hypotension requiring pressor support and now with evidence of MRSA bacteremia likely the source of the sepsis and possible related to his dialysis catheter 2-patient did have persistent bacteremia and the blood cultures from the dialysis catheter also positive highly suspicious for dialysis catheter infection which has been discontinued catheter has been sent for the culture 3-patient will continue the daptomycin and daily blood culture to document clearance if has persistent bacteremia despite removal of the catheter will need a SHELL to rule out endocarditis Dictation was produced using [employer] dictation software. please excuse any grammatical, word or spelling errors.
--- NOTE | 2024-07-28 00:25 | OP ---
OPERATIVE REPORT DATE OF SERVICE : PREOPERATIVE DIAGNOSIS: Acute chronic renal failure, rule out infected dialysis catheter. The patient was seen in the room where right side of the neck and chest was prepped and draped in the usual sterile manner. 1% lidocaine was infiltrated. A small incision was made at exit site of catheter. Catheter was removed. The incision was closed with 3-0 nylon. Dressing applied. Patient tolerated the procedure well. MMBRUCE / AKANKSHAN: [id number] /
--- NOTE | 2024-07-28 08:07 | P.PN ---
Subjective Principal diagnosis: The patient is now blood culture positive for MRSA. Continuing to slowly improve with Daptomycin. Complains of lumbar back pain. [place] offered. No diarrhea. Blood pressure is improving. We are trying to attempt to get the patient therapy so that he can sit up in a chair and do standard rehab for dialysis. Objective - Vital Signs Vital signs: Vital Signs Temp 97.7 F 07/28/24 06:57 Pulse 97 07/28/24 06:57 Resp 20 07/28/24 06:57 BP 86/56 07/28/24 06:57 Pulse Ox 95 07/28/24 06:57 FiO2 21 07/22/24 04:00 Intake & Output 07/27/24 07/28/24 07/28/24 18:59 06:59 18:59 Intake Total 300 240 Output Total 0 Balance 300 240 Weight 169 kg 160.4 kg Intake: Oral 300 240 Output: Urine 0 Other: Voiding Method Urinal Urinal # Voids 0 ABP, PAP, CO, CI - Last Documented Arterial Blood Pressure 106/46 - Constitutional General appearance: Present: morbidly obese, no acute distress - EENT Eyes: Absent: abnormal pupil - Neck Neck: Absent: lymphadenopathy - Respiratory Respiratory: bilateral: diminished - Cardiovascular Rhythm: irregularly irregular Heart sounds: normal: S1, S2 Abnormal Heart Sounds: Absent: S3 Gallop - Gastrointestinal General gastrointestinal: Present: soft. Absent: tenderness - Integumentary Integumentary: Absent: cyanotic - Labs CBC & Chem 7: 07/26/24 05:57 07/26/24 05:57 Labs: Microbiology - Last 24 Hours (Table) 07/23/24 10:30 Urine Culture - Final Urine,Catheterized Citrobacter braakii Enterococcus faecalis Vijaya albicans 07/26/24 12:47 Blood Culture Gram Stain - Preliminary Blood 07/26/24 05:57 Blood Culture Gram Stain - Preliminary Blood Assessment and Plan (1) Hypotension Current Visit: Yes Status: Acute Code(s): I95.9 - HYPOTENSION, UNSPECIFIED SNOMED Code(s): 69537945 (2) Left leg cellulitis Current Visit: Yes Status: Acute Code(s): L03.116 - CELLULITIS OF LEFT LOWER LIMB SNOMED Code(s): 72940278502673997 (3) Weakness Current Visit: Yes Status: Acute Code(s): R53.1 - WEAKNESS SNOMED Code(s): 96725213 Plan: Acute on chronic renal failure. Blood pressure is stabilizing I suspect the hypotension is related to his sepsis which is now being treated appropriately. Will continue to follow with multiple consultants. Check CBC and CMP in a.m. Increase activity slowly with physical therapy. Time with Patient: Less than 30
--- NOTE | 2024-07-28 10:38 | P.PN ---
Subjective Patient is seen in follow-up for acute kidney injury on chronic kidney disease. Started on hemodialysis July 06, 2024. Last dialysis July 27, 2024. Permacath removed July 27, 2024. Oliguric. Vital signs are stable. General: No acute distress. HEENT: Head exam is unremarkable. On room air. LUNGS: No audible rhonchi or wheezes. HEART: Rate and Rhythm are regular. ABDOMEN: Obese, nontender. EXTREMITITES: 2+ edema. Objective - Vital Signs Vital signs: Vital Signs Temp 97.7 F 07/28/24 06:57 Pulse 98 07/28/24 09:47 Resp 20 07/28/24 06:57 BP 95/66 07/28/24 09:47 Pulse Ox 95 07/28/24 06:57 FiO2 21 07/22/24 04:00 Intake & Output 07/27/24 07/28/24 07/28/24 18:59 06:59 18:59 Intake Total 300 240 Output Total 0 Balance 300 240 Weight 169 kg 160.4 kg Intake: Oral 300 240 Output: Urine 0 Other: Voiding Method Urinal Urinal # Voids 0 ABP, PAP, CO, CI - Last Documented Arterial Blood Pressure 106/46 - Labs CBC & Chem 7: 07/26/24 05:57 07/26/24 05:57 Labs: Microbiology - Last 24 Hours (Table) 07/26/24 05:57 Blood Culture Gram Stain - Preliminary Blood Blood Culture - Preliminary Presumptive MRSA 07/23/24 10:30 Urine Culture - Final Urine,Catheterized Citrobacter braakii Enterococcus faecalis Vijaya albicans 07/26/24 12:47 Blood Culture Gram Stain - Preliminary Blood Assessment and Plan Plan: Assessment: 1. Acute kidney injury secondary to ATN secondary to hypotension and cardiorenal syndrome. Creatinine up to 4.3 dated July 06, 2024. Started on hemodialysis July 06, 2024 via femoral dialysis catheter. Subsequently had p ermacath placed but was removed July 27, 2024 due to bacteremia. No hydronephrosis noted on ultrasound. Trace protein on UA. 2. 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 Creatinine 1.5 in March 2024. 3. Acute on chronic diastolic CHF and moderate mitral consultation, severe tricuspid regurgitation and pulmonary hypertension. 4. Volume overload. Improved with diuresis and ultrafiltration. 5. MRSA bacteremia. ID following. Questionable source. 6. Hypervolemic hyponatremia. Stable. 7. Hyperphosphatemia secondary to acute kidney injury. Phosphorus level 5.0 da nancy July 12, 2024. On Renvela. Plan: Last hemodialysis was July 27, 2024. Permacath removed July 27, 2024. Low-salt diet and 1500 cc fluid restriction. Maintain midodrine. Avoid nephrotoxins. Continue to monitor renal function and urine output. Monzon catheter removed July 26, 2024. Continue to monitor labs daily. Lasix 80 mg IV once today. Await ID clearance for new permacath placement.
[2024-07-28 10:53] LABS: HGB 11.3 gm/dL (13.0-17.5); MCH 35.3 pg (25.0-35.0); MCHC 33.3 g/dL (31.0-37.0); Platelet Count 136 k/uL (150-450); RDW 17.5 % (11.5-15.5); WBC 12.6 k/uL (3.8-10.6)
[2024-07-28 10:54] LABS: Anisocytosis Slight; Macrocytosis Marked; Mean Platelet Volume 8.5; Poikilocytosis Slight
[2024-07-28 11:39] LABS: ALT 12 U/L (4-49); African American GFR (CKD) 19 (>60 ml/min/1.73 sqM); Albumin 2.6 g/dL (3.5-5.0); Anion Gap 9 mmol/L; Blood Urea Nitrogen 57 mg/dL (9-20); Calcium 8.2 mg/dL (8.4-10.2); Carbon Dioxide 25 mmol/L (22-30); Chloride 97 mmol/L (98-107); Glucose 91 mg/dL (74-99); Non-African American GFR(CKD) 17 (>60 ml/min/1.73 sqM); Sodium 131 mmol/L (137-145); Total Protein 5.8 g/dL (6.3-8.2)
[2024-07-28 11:44] LABS: Potassium 4.5 mmol/L (3.5-5.1)
[2024-07-28 11:45] LABS: AST 26 U/L (17-59); Alkaline Phosphatase 205 U/L (38-126)
--- NOTE | 2024-07-28 14:32 | P.PN ---
Subjective Progress Note Date: 07/28/24 Principal diagnosis: Acute on chronic right-sided congestive heart failure with chronic hypotension This is a 78-year-old male patient with massive fluid overload, ongoing diffic ulty with chronic kidney failure as the patient has developed an acute on top of chronic renal disease with extensive third spacing and anasarca and possibly a component of cardiorenal syndrome. 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 Baseline creatinine is around 1.5 back in March 2024. The patient presented to us with volume overload, acute on top of chronic diastolic heart failure with moderate mitral regurgitation. Patient also was diagnosed having an Enterococcus urinary tract infection currently on IV Unasyn. Initial rate, attempts to diurese this patient with Lasix have failed due to ongoing hypotension. The patient was started on midodrine 10 mg p.o. 4 times daily. Subsequently, I was asked to transfer this patient to the ICU for hemodynamic support and pressor use as the patient was going to be started on Lasix 5 mg infusion in combination with Zaroxolyn 5 mg p.o. daily. Based on that, the patient was transferred to the ICU. Lasix s drip was started and the patient will be started also on norepinephrine for blood pressure support. He is currently awake and alert. Following commands. He is on oxygen at 2 L/min nasal cannula. His chest x-ray showing small bilateral pleural effusion and this is less x-ray that was done on 06/26/2024. On 07/21/2024, the patient is undergoing hemodialysis. His blood pressure is stable. The patient was taken off the IV Solu-Cortef yesterday. He remains on metoprolol 50 mg p.o. twice daily. He remains in atrial fibrillation. Rate is controlled for now. He is tolerating dialysis reasonably well. No hemodynamic instability and the patient remains on room air oxygen with a pulse ox of 95%. No other significant events overnight. On 07/22/2024, patient is being seen in follow-up. The patient was transferred to the intensive. As the patient became hypotensive and he developed atrial fibrillation with rapid ventricular response. He was placed on a Cardizem drip at 5 mg an hour and currently is off the Cardizem. He also received a total of 1 L of IV fluid normal saline bolus. Subsequently, the patient was started on low-dose norepinephrine and currently norepinephrine is running at 0.03 mcg/kg/min. Last hemodialysis session was on 07/21/2024 and a total of 2.4 L of fluid was removed. He is currently on 3 days of oxygen by nasal cannula. Awake and alert and communicating. Afebrile. White cell count is 16 with a hemoglobin of 11 and a platelet count of 144. BUN is 80 with a creatinine of 3.6. Sodium levels at 133. No respiratory distress. He was taken off the IV hydrocortisone yesterday. Patient was seen today on 07/24/2024, patient is in the ICU, receiving hemodialysis during my evaluation, not requiring any pressors, patient received full course of treatment for his cellulitis and UTI secondary to Enterococcus faecalis, patient is being followed by infectious disease. Repeat blood cultures today are positive for gram-positive cocci in clusters suspected MRSA, infectious disease will be notified and may have to go back on antibio tics/vancomycin. CBC is 13.4 hemoglobin 10.7. Electrolytes are normal except for potassium of 6 which will be corrected after hemodialysis today. BUN is 106 creatinine 4.49 Patient evaluated today on 07/25/2024, patient remains in the ICU, he is on 2 L nasal cannula, not in distress, yesterday I was told about his positive blood cultures showing MRSA patient is now on daptomycin. Patient also had an episode of atrial fibrillation with RVR I bolused the patient with amiodarone, presently on amiodarone drip at 0.5 mg/min, and cardiology will transition his amiodarone today to oral amiodarone. His right lower extremity cellulitis seems to be improving. Patient is on anticoagulation therapy/Eliquis. Not in distress, seems to be doing fairly well overall. Hence considering the patient is hemodynamically stable today, I would likely transfer the patient to a monitored bed on 3 S. today. Patient had ultrafiltration yesterday and 2 L of fluids were removed. WBC count is 13.4 hemoglobin is 10.4 electrolytes showed low sodium of 131 BUN is 82 creatinine 4.08 Was seen today on 07/26/2024, patient is basically the same, remains in the ICU, on room air, not in any distress, undergoing hemodialysis. Blood pressure seems to have stabilized, he is not requiring any pressors, patient is basically an overflow in the ICU, waiting for a bed on 3 S. WBC count is 13.5 hemoglobin 10.7 basic metabolic profile is normal potassium is 5.3 BUN is 95 creatinine 4.34 patient is still undergoing hemodialysis as recommended by nephrology. Seems to be tolerating dialysis quite well, and not requiring pressors at this point. Hemodialysis was started on this patient on July 06 and he has a permacath in place remains on antibiotics for his right lower extremity cellulitis which seems to be improving. Patient was seen today on 07/28/2024, remains on room air, not in any distress, his last hemodialysis was yesterday July 27, permacath removed July 27, patient is oliguric. Patient remains on Lasix 80 mg IV push was given today. Nephrology is waiting for ID to clear for new permacath placement.Remind you patient had positive blood cultures showing MRSA, his blood cultures from yesterday were positive. For this reason his dialysis catheter has been removed and felt to be most likely infected and the source of his bacteremia.His WBC count today is 12.6 hemoglobin 11.3 basic metabolic profile is normal BUN is 57 creatinine 3.41 Objective - Vital Signs Vital signs: Vital Signs Temp 98 F 07/28/24 11:10 Pulse 79 07/28/24 11:10 Resp 18 07/28/24 12:50 BP 105/68 07/28/24 11:10 Pulse Ox 96 07/28/24 11:10 FiO2 21 07/22/24 04:00 Intake & Output 07/27/24 07/28/24 07/28/24 18:59 06:59 18:59 Intake Total 300 240 358 Output Total 0 Balance 300 240 358 Weight 169 kg 160.4 kg Intake: Oral 300 240 358 Output: Urine 0 Other: Voiding Method Urinal Urinal Urinal # Voids 0 ABP, PAP, CO, CI - Last Documented Arterial Blood Pressure 106/46 - Exam General: Revealed a 78-year-old white male morbidly obese on room air, not in distress Head: Atraumatic, normocephalic Neck positive jugular venous distension, thyromegaly, or carotid bruits. Carotid upstrokes are brisk bilaterally. Lungs: Good breath sound bilaterally slightly diminished at the bases only Cardiac: Distant S1-S2, no S3 gallop, no murmur. Abdominal: Morbidly obese soft nontender no megaly positive abdominal wall edema Extremities trace of + bipedal edema femoral and pedal pulses are normal. Left lower extremity was examined after removing the dressing and there is definite cellulitis and minimal superficial ulceration of the right lower extremity in the mid calf region Neurologically, alert oriented x 3 no gross focal deficits Psychiatric: Normal mood affect and no mental status examination. Skin: Decreased left leg swelling, redness, no open wounds or any drainage - Labs CBC & Chem 7: 07/28/24 10:34 07/28/24 10:34 Labs: Abnormal Lab Results - Last 24 Hours (Table) 07/28/24 07/28/24 Range/Units 10:34 10:34 WBC 12.6 H (3.8-10.6) k/uL RBC 3.20 L (4.30-5.90) m/uL Hgb 11.3 L (13.0-17.5) gm/dL Hct 34.0 L (39.0-53.0) % MCV 106.0 H (80.0-100.0) fL MCH 35.3 H (25.0-35.0) pg RDW 17.5 H (11.5-15.5) % Plt Count 136 L (150-450) k/uL Macrocytosis Marked A Sodium 131 L (137-145) mmol/L Chloride 97 L (98-107) mmol/L BUN 57 H (9-20) mg/dL Creatinine 3.41 H (0.66-1.25) mg/dL Calcium 8.2 L (8.4-10.2) mg/dL Total Bilirubin 4.0 H (0.2-1.3) mg/dL Alkaline Phosphatase 205 H (38-126) U/L Total Protein 5.8 L (6.3-8.2) g/dL Albumin 2.6 L (3.5-5.0) g/dL Microbiology - Last 24 Hours (Table) 07/26/24 12:47 Blood Culture Gram Stain - Preliminary Blood Blood Culture - Preliminary Presumptive MRSA 07/26/24 05:57 Blood Culture Gram Stain - Preliminary Blood Blood Culture - Preliminary Presumptive MRSA 07/23/24 10:30 Urine Culture - Final Urine,Catheterized Citrobacter braakii Enterococcus faecalis Vijaya albicans Assessment and Plan Assessment: Impression: MRSA bacteremia most likely source is permacath dialysis catheter which has been removed and his last hemodialysis was on the 24th Acute on chronic diastolic congestive heart failure with hypotension, improving MRSA bacteremia, most likely related to his dialysis catheter, being addressed by infectious disease on the case. Hypotension, multifactorial Acute on chronic stage IIIb kidney disease with massive volume overload and initiated on hemodialysis, last hemodialysis session was on 07/21/2024 with 2.4 L of ultrafiltration. Hyperlipidemia Chronic atrial fibrillation, maintained on anticoagulation with Eliquis Enterococcus faecalis urinary tract infection completed Unasyn. Severe pulmonary hypertension Morbid obesity Gout History of obstructive sleep apnea, not tolerant to CPAP therapy Previous history of WPW and SVT Osteoarthritis Previous history of DVT of lower extremities Glaucoma Recommendation: Continue present supportive care measures No placement for dialysis catheter for at least 48 hours and ideal to document negative bacteremia before the dialysis catheter is placed back in Continue oral amiodarone Continue antibiotics/daptomycin Presently hemodialysis is on hold Continue midodrine not requiring pressors at this point. Will continue to monitor. Overall prognosis remains extremely poor and guarded. Time with Patient: Less than 30
[2024-07-28] MEDS: FUROSEMIDE 10 MG/ML 10 ML VIAL IV STA (15:30)
[2024-07-29 07:01] LABS: Anisocytosis Slight; HCT 32.8 % (39.0-53.0); HGB 10.3 gm/dL (13.0-17.5); Hypochromasia Slight; MCHC 31.5 g/dL (31.0-37.0); Macrocytosis Marked; Platelet Count 150 k/uL (150-450); RBC 3.04 m/uL (4.30-5.90); RDW 16.9 % (11.5-15.5); WBC 13.8 k/uL (3.8-10.6)
[2024-07-29 07:07] LABS: MCV 107.9 fL (80.0-100.0)
[2024-07-29 07:56] LABS: ALT 12 U/L (4-49); AST 23 U/L (17-59); African American GFR (CKD) 15 (>60 ml/min/1.73 sqM); Albumin 2.5 g/dL (3.5-5.0); Alkaline Phosphatase 224 U/L (38-126); Anion Gap 7 mmol/L; Blood Urea Nitrogen 61 mg/dL (9-20); Calcium 8.2 mg/dL (8.4-10.2); Carbon Dioxide 27 mmol/L (22-30); Chloride 97 mmol/L (98-107); Glucose 81 mg/dL (74-99); Non-African American GFR(CKD) 13 (>60 ml/min/1.73 sqM); Potassium 4.3 mmol/L (3.5-5.1); Sodium 131 mmol/L (137-145); Total Bilirubin 3.8 mg/dL (0.2-1.3); Total Protein 5.7 g/dL (6.3-8.2)
--- NOTE | 2024-07-29 09:47 | P.PN ---
Subjective Progress Note Date: 07/28/24 Principal diagnosis: Reason for follow-up is left leg cellulitis Patient is a 78-year-old male with a past medical history significant for atrial fibrillation hypertension hyperlipidemia osteoarthritis sleep apnea presenting to the hospital for evaluation of weakness and fall patient was initially treated for cellulitis UTI and subsequently signed off and the patient has been in the hospital undergoing treatment for his acute renal failure patient did have a dialysis catheter placement and is undergoing dialysis patient was running a low-grade fever blood culture has been obtained which came back positive with MRSA prompting reevaluation for this bacteremia. On today's evaluation that is 07/28/2024,the patient remains to be afebrile, patient is on room air not requiring supplemental oxygen and denies any shortness of breath no chest pain or cough.Patient denies having any nausea or vomiting, no abdominal pain and no diarrhea has been reported no new symptoms. Patient white count is down to 12.6, creatinine 3.41 catheter culture positive Objective - Vital Signs Vital signs: Vital Signs Temp 98 F 07/28/24 11:10 Pulse 79 07/28/24 11:10 Resp 18 07/28/24 12:50 BP 105/68 07/28/24 11:10 Pulse Ox 96 07/28/24 11:10 FiO2 21 07/22/24 04:00 Intake & Output 07/27/24 07/28/24 07/28/24 18:59 06:59 18:59 Intake Total 300 240 358 Output Total 0 Balance 300 240 358 Weight 169 kg 160.4 kg Intake: Oral 300 240 358 Output: Urine 0 Other: Voiding Method Urinal Urinal Urinal # Voids 0 ABP, PAP, CO, CI - Last Documented Arterial Blood Pressure 106/46 - Exam GENERAL DESCRIPTION: An elderly male lying in bed in no distress RESPIRATORY SYSTEM: Unlabored breathing , decreased breath sounds at bases HEART: S1 S2 regular rate and rhythm , ABDOMEN: Soft , no tenderness EXTREMITIES: Bilateral extremity swelling no redness - Labs CBC & Chem 7: 07/29/24 06:38 07/29/24 06:30 Labs: Abnormal Lab Results - Last 24 Hours (Table) 07/28/24 07/28/24 Range/Units 10:34 10:34 WBC 12.6 H (3.8-10.6) k/uL RBC 3.20 L (4.30-5.90) m/uL Hgb 11.3 L (13.0-17.5) gm/dL Hct 34.0 L (39.0-53.0) % MCV 106.0 H (80.0-100.0) fL MCH 35.3 H (25.0-35.0) pg RDW 17.5 H (11.5-15.5) % Plt Count 136 L (150-450) k/uL Macrocytosis Marked A Sodium 131 L (137-145) mmol/L Chloride 97 L (98-107) mmol/L BUN 57 H (9-20) mg/dL Creatinine 3.41 H (0.66-1.25) mg/dL Calcium 8.2 L (8.4-10.2) mg/dL Total Bilirubin 4.0 H (0.2-1.3) mg/dL Alkaline Phosphatase 205 H (38-126) U/L Total Protein 5.8 L (6.3-8.2) g/dL Albumin 2.6 L (3.5-5.0) g/dL Microbiology - Last 24 Hours (Table) 07/26/24 12:47 Blood Culture Gram Stain - Preliminary Blood Blood Culture - Preliminary Presumptive MRSA 07/26/24 05:57 Blood Culture Gram Stain - Preliminary Blood Blood Culture - Preliminary Presumptive MRSA 07/23/24 10:30 Urine Culture - Final Urine,Catheterized Citrobacter braakii Enterococcus faecalis Vijaya albicans Assessment and Plan (1) MRSA bacteremia Current Visit: Yes Status: Acute Code(s): R78.81 - BACTEREMIA; B95.62 - METHICILLIN RESIS STAPH INFCT CAUSING DISEASES CLASSD ELSWHR SNOMED Code(s): 81235613363404081 (2) Sepsis Current Visit: Yes Status: Acute Code(s): A41.9 - SEPSIS, UNSPECIFIED ORGANISM SNOMED Code(s): 24081344 Plan: 1patient with sepsis in this patient who did have a fever elevated white count hypotension requiring pressor support and now with evidence of MRSA bacteremia likely the source of the sepsis and possible related to his dialysis catheter 2-patient did have persistent bacteremia and the blood cultures from the dialysis catheter also positive highly suspicious for dialysis catheter infection which has been discontinued catheter tip culture positive for MRSA 3-patient will need daily blood culture document clearance of bacteremia before placement of another dialysis catheter continue the daptomycin and monitor clinical course closely Dictation was produced using [employer] dictation software. please excuse any grammatical, word or spelling errors. Time with Patient: Less than 30
--- NOTE | 2024-07-29 11:43 | P.PN ---
Subjective Patient is seen in follow-up for acute kidney injury on chronic kidney disease. Started on hemodialysis July 06, 2024. Last dialysis July 27, 2024. Permacath removed July 27, 2024. Oliguric. Vital signs are stable. Blood pressure on the lower end. General: No acute distress. HEENT: Head exam is unremarkable. On room air. LUNGS: No audible rhonchi or wheezes. HEART: Rate and Rhythm are regular. ABDOMEN: Obese, nontender. EXTREMITITES: 2+ edema. Objective - Vital Signs Vital signs: Vital Signs Temp 98.2 F 07/29/24 04:08 Pulse 98 07/29/24 09:47 Resp 18 07/29/24 09:47 BP 89/55 07/29/24 08:23 Pulse Ox 94 L 07/29/24 08:23 FiO2 21 07/22/24 04:00 Intake & Output 07/28/24 07/29/24 07/29/24 18:59 06:59 18:59 Intake Total 1018 237 Output Total 0 Balance 1018 237 Weight 161 kg Intake: IV 60 DAPTOmycin 700 mg In 50 Sodium Chloride 0.9% 50 ml @ 100 mls/hr IVPB Q48H [facility] Rx#:[id number] Invasive Line 1 10 Oral [id number] Output: Urine 0 Other: Voiding Method Urinal Urinal # Voids 1 0 ABP, PAP, CO, CI - Last Documented Arterial Blood Pressure 106/46 - Labs CBC & Chem 7: 07/29/24 06:38 07/29/24 06:30 Labs: Abnormal Lab Results - Last 24 Hours (Table) 07/28/24 07/29/24 07/29/24 Range/Units 10:34 06:30 06:38 WBC 13.8 H (3.8-10.6) k/uL RBC 3.04 L (4.30-5.90) m/uL Hgb 10.3 L (13.0-17.5) gm/dL Hct 32.8 L (39.0-53.0) % MCV 107.9 H (80.0-100.0) fL RDW 16.9 H (11.5-15.5) % Macrocytosis Marked A Sodium 131 L 131 L (137-145) mmol/L Chloride 97 L 97 L (98-107) mmol/L BUN 57 H 61 H (9-20) mg/dL Creatinine 3.41 H 4.14 H (0.66-1.25) mg/dL Calcium 8.2 L 8.2 L (8.4-10.2) mg/dL Total Bilirubin 4.0 H 3.8 H (0.2-1.3) mg/dL Alkaline Phosphatase 205 H 224 H (38-126) U/L Total Protein 5.8 L 5.7 L (6.3-8.2) g/dL Albumin 2.6 L 2.5 L (3.5-5.0) g/dL Microbiology - Last 24 Hours (Table) 07/26/24 12:47 Blood Culture Gram Stain - Final Blood Blood Culture - Final Methicillin resist S. aureus 07/26/24 05:57 Blood Culture Gram Stain - Final Blood Blood Culture - Final Methicillin resist S. aureus 07/27/24 17:20 Catheter Tip Culture - Preliminary Catheter Tip Presumptive MRSA Assessment and Plan Plan: Assessment: 1. Acute kidney injury secondary to ATN secondary to hypotension and cardiorenal syndrome. Creatinine up to 4.3 dated July 06, 2024. Started on hemodialysis July 06, 2024 via femoral dialysis catheter. Subsequently had permacath placed but was removed July 27, 2024 due to bacteremia. No hydronephrosis noted on ultrasound. Trace protein on UA. 2. 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 Creatinine 1.5 in March 2024. 3. Acute on chronic diastolic CHF and moderate mitral consultation, severe tricuspid regurgitation and pulmonary hypertension. 4. Volume overload. Improved with diuresis and ultrafiltration. 5. MRSA bacteremia. ID following. Permacath tip culture positive for MRSA. 6. Hypervolemic hyponatremia. Stable. 7. Hyperphosphatemia secondary to acute kidney injury. Phosphorus level 5.0 dated July 12, 2024. On Renvela. Plan: Last hemodialysis was July 27, 2024. Permacath removed July 27, 2024. Low-salt diet and 1500 cc fluid restriction. Maintain midodrine. Avoid nephrotoxins. Continue to monitor renal function and urine output. Monzon catheter removed July 26, 2024. Continue to monitor labs daily. No response to IV Lasix given July 28, 2024. Await ID clearance for new permacath placement.
--- NOTE | 2024-07-29 13:29 | P.PN ---
Subjective Progress Note Date: 07/29/24 Principal diagnosis: Acute on chronic right-sided congestive heart failure with chronic hypotension This is a 78-year-old male patient with massive fluid overload, ongoing diffic ulty with chronic kidney failure as the patient has developed an acute on top of chronic renal disease with extensive third spacing and anasarca and possibly a component of cardiorenal syndrome. 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 Baseline creatinine is around 1.5 back in March 2024. The patient presented to us with volume overload, acute on top of chronic diastolic heart failure with moderate mitral regurgitation. Patient also was diagnosed having an Enterococcus urinary tract infection currently on IV Unasyn. Initial rate, attempts to diurese this patient with Lasix have failed due to ongoing hypotension. The patient was started on midodrine 10 mg p.o. 4 times daily. Subsequently, I was asked to transfer this patient to the ICU for hemodynamic support and pressor use as the patient was going to be started on Lasix 5 mg infusion in combination with Zaroxolyn 5 mg p.o. daily. Based on that, the patient was transferred to the ICU. Lasix s drip was started and the patient will be started also on norepinephrine for blood pressure support. He is currently awake and alert. Following commands. He is on oxygen at 2 L/min nasal cannula. His chest x-ray showing small bilateral pleural effusion and this is less x-ray that was done on 06/26/2024. On 07/21/2024, the patient is undergoing hemodialysis. His blood pressure is stable. The patient was taken off the IV Solu-Cortef yesterday. He remains on metoprolol 50 mg p.o. twice daily. He remains in atrial fibrillation. Rate is controlled for now. He is tolerating dialysis reasonably well. No hemodynamic instability and the patient remains on room air oxygen with a pulse ox of 95%. No other significant events overnight. On 07/22/2024, patient is being seen in follow-up. The patient was transferred to the intensive. As the patient became hypotensive and he developed atrial fibrillation with rapid ventricular response. He was placed on a Cardizem drip at 5 mg an hour and currently is off the Cardizem. He also received a total of 1 L of IV fluid normal saline bolus. Subsequently, the patient was started on low-dose norepinephrine and currently norepinephrine is running at 0.03 mcg/kg/min. Last hemodialysis session was on 07/21/2024 and a total of 2.4 L of fluid was removed. He is currently on 3 days of oxygen by nasal cannula. Awake and alert and communicating. Afebrile. White cell count is 16 with a hemoglobin of 11 and a platelet count of 144. BUN is 80 with a creatinine of 3.6. Sodium levels at 133. No respiratory distress. He was taken off the IV hydrocortisone yesterday. Patient was seen today on 07/24/2024, patient is in the ICU, receiving hemodialysis during my evaluation, not requiring any pressors, patient received full course of treatment for his cellulitis and UTI secondary to Enterococcus faecalis, patient is being followed by infectious disease. Repeat blood cultures today are positive for gram-positive cocci in clusters suspected MRSA, infectious disease will be notified and may have to go back on antibio tics/vancomycin. CBC is 13.4 hemoglobin 10.7. Electrolytes are normal except for potassium of 6 which will be corrected after hemodialysis today. BUN is 106 creatinine 4.49 Patient evaluated today on 07/25/2024, patient remains in the ICU, he is on 2 L nasal cannula, not in distress, yesterday I was told about his positive blood cultures showing MRSA patient is now on daptomycin. Patient also had an episode of atrial fibrillation with RVR I bolused the patient with amiodarone, presently on amiodarone drip at 0.5 mg/min, and cardiology will transition his amiodarone today to oral amiodarone. His right lower extremity cellulitis seems to be improving. Patient is on anticoagulation therapy/Eliquis. Not in distress, seems to be doing fairly well overall. Hence considering the patient is hemodynamically stable today, I would likely transfer the patient to a monitored bed on 3 S. today. Patient had ultrafiltration yesterday and 2 L of fluids were removed. WBC count is 13.4 hemoglobin is 10.4 electrolytes showed low sodium of 131 BUN is 82 creatinine 4.08 Was seen today on 07/26/2024, patient is basically the same, remains in the ICU, on room air, not in any distress, undergoing hemodialysis. Blood pressure seems to have stabilized, he is not requiring any pressors, patient is basically an overflow in the ICU, waiting for a bed on 3 S. WBC count is 13.5 hemoglobin 10.7 basic metabolic profile is normal potassium is 5.3 BUN is 95 creatinine 4.34 patient is still undergoing hemodialysis as recommended by nephrology. Seems to be tolerating dialysis quite well, and not requiring pressors at this point. Hemodialysis was started on this patient on July 06 and he has a permacath in place remains on antibiotics for his right lower extremity cellulitis which seems to be improving. Patient was seen today on 07/28/2024, remains on room air, not in any distress, his last hemodialysis was yesterday July 27, permacath removed July 27, patient is oliguric. Patient remains on Lasix 80 mg IV push was given today. Nephrology is waiting for ID to clear for new permacath placement.Remind you patient had positive blood cultures showing MRSA, his blood cultures from yesterday were positive. For this reason his dialysis catheter has been removed and felt to be most likely infected and the source of his bacteremia.His WBC count today is 12.6 hemoglobin 11.3 basic metabolic profile is normal BUN is 57 creatinine 3.41 Seen today on 07/29/2024, patient is calm, comfortable, on room air, not in distress, his last hemodialysis was July 27, his permacath has been removed because of bacteremia and catheter related sepsis. WBC count today is 13.8 hemoglobin 10.3 electrolytes are normal BUN is 61 creatinine 4.14 Objective - Vital Signs Vital signs: Vital Signs Temp 98.2 F 07/29/24 04:08 Pulse 94 07/29/24 12:02 Resp 18 07/29/24 12:02 BP 107/67 07/29/24 12:02 Pulse Ox 96 07/29/24 12:02 FiO2 21 07/22/24 04:00 Intake & Output 07/28/24 07/29/24 07/29/24 18:59 06:59 18:59 Intake Total 1018 237 Output Total 0 Balance 1018 237 Weight 161 kg Intake: IV 60 DAPTOmycin 700 mg In 50 Sodium Chloride 0.9% 50 ml @ 100 mls/hr IVPB Q48H [facility] Rx#:[id number] Invasive Line 1 10 Oral [id number] Output: Urine 0 Other: Voiding Method Urinal Urinal # Voids 1 0 ABP, PAP, CO, CI - Last Documented Arterial Blood Pressure 106/46 - Exam General: Revealed a 78-year-old white male morbidly obese on room air, not in distress Head: Atraumatic, normocephalic Neck positive jugular venous distension, thyromegaly, or carotid bruits. Carotid upstrokes are brisk bilaterally. Lungs: Good breath sound bilaterally slightly diminished at the bases only Cardiac: Distant S1-S2, no S3 gallop, no murmur. Abdominal: Morbidly obese soft nontender no megaly positive abdominal wall edema Extremities trace of + bipedal edema femoral and pedal pulses are normal. Left lower extremity was examined after removing the dressing and there is definite cellulitis and minimal superficial ulceration of the right lower extremity in the mid calf region Neurologically, alert oriented x 3 no gross focal deficits Psychiatric: Normal mood affect and no mental status examination. Skin: Decreased left leg swelling, redness, no open wounds or any drainage - Labs CBC & Chem 7: 07/29/24 06:38 07/29/24 06:30 Labs: Abnormal Lab Results - Last 24 Hours (Table) 07/29/24 07/29/24 Range/Units 06:30 06:38 WBC 13.8 H (3.8-10.6) k/uL RBC 3.04 L (4.30-5.90) m/uL Hgb 10.3 L (13.0-17.5) gm/dL Hct 32.8 L (39.0-53.0) % MCV 107.9 H (80.0-100.0) fL RDW 16.9 H (11.5-15.5) % Macrocytosis Marked A Sodium 131 L (137-145) mmol/L Chloride 97 L (98-107) mmol/L BUN 61 H (9-20) mg/dL Creatinine 4.14 H (0.66-1.25) mg/dL Calcium 8.2 L (8.4-10.2) mg/dL Total Bilirubin 3.8 H (0.2-1.3) mg/dL Alkaline Phosphatase 224 H (38-126) U/L Total Protein 5.7 L (6.3-8.2) g/dL Albumin 2.5 L (3.5-5.0) g/dL Microbiology - Last 24 Hours (Table) 07/26/24 12:47 Blood Culture Gram Stain - Final Blood Blood Culture - Final Methicillin resist S. aureus 07/26/24 05:57 Blood Culture Gram Stain - Final Blood Blood Culture - Final Methicillin resist S. aureus 07/27/24 17:20 Catheter Tip Culture - Preliminary Catheter Tip Presumptive MRSA Assessment and Plan Assessment: Impression: MRSA bacteremia most likely source is permacath dialysis catheter which has been removed and his last hemodialysis was on the Acute on chronic diastolic congestive heart failure with hypotension, improving MRSA bacteremia, most likely related to his dialysis catheter, being addressed by infectious disease on the case. Hypotension, multifactorial Acute on chronic stage IIIb kidney disease with massive volume overload and initiated on hemodialysis, last hemodialysis session was on 07/21/2024 with 2.4 L of ultrafiltration. Hyperlipidemia Chronic atrial fibrillation, maintained on anticoagulation with Eliquis Enterococcus faecalis urinary tract infection completed Unasyn. Severe pulmonary hypertension Morbid obesity Gout History of obstructive sleep apnea, not tolerant to CPAP therapy Previous history of WPW and SVT Osteoarthritis Previous history of DVT of lower extremities Glaucoma Recommendation: Continue present supportive care measures No placement for dialysis catheter for at least 48 hours and ideal to document negative bacteremia before the dialysis catheter is placed back in Continue oral amiodarone Continue antibiotics/daptomycin Presently hemodialysis is on hold Continue midodrine not requiring pressors at this point. Will continue to monitor. Overall prognosis remains extremely poor and guarded. Time with Patient: Less than 30
--- NOTE | 2024-07-29 14:49 | P.PN ---
Subjective Progress Note Date: 07/29/24 Principal diagnosis: Reason for follow-up is left leg cellulitis Patient is a 78-year-old male with a past medical history significant for atrial fibrillation hypertension hyperlipidemia osteoarthritis sleep apnea presenting to the hospital for evaluation of weakness and fall patient was initially treated for cellulitis UTI and subsequently signed off and the patient has been in the hospital undergoing treatment for his acute renal failure patient did have a dialysis catheter placement and is undergoing dialysis patient was running a low-grade fever blood culture has been obtained which came back positive with MRSA prompting reevaluation for this bacteremia. On today's evaluation that is 07/29/2024, the patient continues to be afebrile, the patient is on room air and breathing comfortably, the Pt denies having any chest pain or cough, the patient denies having any abdominal pain no vomiting or any diarrhea has been reported by the nursing staff. Patient white count is 13.8, platelets 4.14 catheter tip is positive with MRSA blood cultures from 424 and 25 are currently pending Objective - Vital Signs Vital signs: Vital Signs Temp 98.2 F 07/29/24 04:08 Pulse 94 07/29/24 13:45 Resp 18 07/29/24 13:45 BP 107/67 07/29/24 12:02 Pulse Ox 96 07/29/24 12:02 FiO2 21 07/22/24 04:00 Intake & Output 07/28/24 07/29/24 07/29/24 18:59 06:59 18:59 Intake Total 1018 237 Output Total 0 Balance 1018 237 Weight 161 kg Intake: IV 60 DAPTOmycin 700 mg In 50 Sodium Chloride 0.9% 50 ml @ 100 mls/hr IVPB Q48H [facility] Rx#:[id number] Invasive Line 1 10 Oral [id number] Output: Urine 0 Other: Voiding Method Urinal Urinal # Voids 1 0 ABP, PAP, CO, CI - Last Documented Arterial Blood Pressure 106/46 - Exam GENERAL DESCRIPTION: An elderly male lying in bed in no distress RESPIRATORY SYSTEM: Unlabored breathing , decreased breath sounds at bases HEART: S1 S2 regular rate and rhythm , ABDOMEN: Soft , no tenderness EXTREMITIES: Bilateral extremity swelling no redness - Labs CBC & Chem 7: 07/29/24 06:38 07/29/24 06:30 Labs: Abnormal Lab Results - Last 24 Hours (Table) 07/29/24 07/29/24 Range/Units 06:30 06:38 WBC 13.8 H (3.8-10.6) k/uL RBC 3.04 L (4.30-5.90) m/uL Hgb 10.3 L (13.0-17.5) gm/dL Hct 32.8 L (39.0-53.0) % MCV 107.9 H (80.0-100.0) fL RDW 16.9 H (11.5-15.5) % Macrocytosis Marked A Sodium 131 L (137-145) mmol/L Chloride 97 L (98-107) mmol/L BUN 61 H (9-20) mg/dL Creatinine 4.14 H (0.66-1.25) mg/dL Calcium 8.2 L (8.4-10.2) mg/dL Total Bilirubin 3.8 H (0.2-1.3) mg/dL Alkaline Phosphatase 224 H (38-126) U/L Total Protein 5.7 L (6.3-8.2) g/dL Albumin 2.5 L (3.5-5.0) g/dL Microbiology - Last 24 Hours (Table) 07/26/24 12:47 Blood Culture Gram Stain - Final Blood Blood Culture - Final Methicillin resist S. aureus 07/26/24 05:57 Blood Culture Gram Stain - Final Blood Blood Culture - Final Methicillin resist S. aureus 07/27/24 17:20 Catheter Tip Culture - Preliminary Catheter Tip Presumptive MRSA Assessment and Plan (1) MRSA bacteremia Current Visit: Yes Status: Acute Code(s): R78.81 - BACTEREMIA; B95.62 - METHICILLIN RESIS STAPH INFCT CAUSING DISEASES CLASSD ELSWHR SNOMED Code(s): 14414985745338034 (2) Sepsis Current Visit: Yes Status: Acute Code(s): A41.9 - SEPSIS, UNSPECIFIED ORGANISM SNOMED Code(s): 46009206 Plan: 1patient with sepsis in this patient who did have a fever elevated white count hypotension requiring pressor support and now with evidence of MRSA bacteremia likely the source of the sepsis and possible related to his dialysis catheter 2-patient did have persistent bacteremia and the blood cultures from the dialysis catheter also positive highly suspicious for dialysis catheter infection which has been discontinued catheter tip culture positive for MRSA 3-patient to continue with the daptomycin blood culture repeat is currently pending will be ordered for tomorrow morning as well Dictation was produced using [email or web address] dictation software. please excuse any grammatical, word or spelling errors. Time with Patient: Less than 30
--- NOTE | 2024-07-29 19:43 | P.PN ---
Subjective History of present illness; patient 78-year-old gentleman with past medical history significant for A-fib, DVT, hypertension, hyperlipidemia presented the ER because of worsening weakness and fall. Patient states that for the last few days he has been noticing that his left lower leg was getting red and more painful. Patient has history of lower extremity swelling and normally wraps them to help with swelling. There was no complaint of fever or chills. Patient has been complaining of increasing weakness. Patient had a fall yesterday. Th ere was no complaint of any trauma to the head. There was no loss of consciousness. Denied any chest pain or shortness of breath. Because of the symptoms, patient brought to the ER Initial lab work done in the ER showed showed WBC 1.7, hemoglobin 12.6, platelet count 169, INR 10, sodium 136, potassium 3.5, BUN 52, creatinine 2.19, glucose 117, bilirubin 5 AST 167, ALT 48 troponin 0.012, albumin 3.2 UA positive for leukocyte esterase, urine WBC 14 Influenza A not detected Influenza B not detected RSV not detected COVID-19 not detected X-ray of pelvis done, no evidence of any fractures EKG done in the ER showed heart rate of 94, no ST segment elevation or depression seen, no T-wave inversions seen. Chest x-ray done in the ER showed small right pleural effusion CT head done showed no acute intracranial process CT cervical spine done showed no fractures. Duplex ultrasound of lower extremities done showed no DVT Patient admitted to internal medicine service 06/28 Patient is lying in bed does not look in distress He still complaining from some pain in his left leg about 3/10, his left leg swollen pink warm and tender He has been treated for CHF, he has bilateral leg swelling, it is hard to hear basal crepitation as he is obese He still feels generally weak No other new complaint He is currently treated with cefazolin but urine culture is growing Enterococcus. Patient denies overt UTI signs symptoms currently Also is on IV Lasix 40 mg 3 times a day He was given warfarin 5 mg after INR came down to 3.0 down to 2.1 today [place]calcitonin [place] [id number] Creatinine 2.2 today, was 2.1 last 2 days, baseline 1.4-1.7 Blood pressure is borderline 06/29 his left leg cellulitis is improving, still has swollen of the legs. No chest pain or dyspnea or other new complaint He is using CPAP machine at night Vitals are stable Labs from today are still pending. Yesterday his INR was therapeutic at 2.1. Urine culture is growing Enterococcus which is sensitive Continue with Coumadin. He denies any urinary tract symptoms he has external urinary catheter. Keep monitoring creatinine 06/30 Patient awake alert, using CPAP machine overnight. Denies chest pain or dyspnea He still complains from right shoulder pain from falling prior to coming to the hospital. He cannot raise his arm above his head with some limitation. We are going to order x-ray of the right shoulder. He still have generalized weakness He still have significant 3+ bilateral leg swelling, he is on IV Lasix 40 mg twice daily. However his INR has been trending up. Creatinine was 2.5 yes terday. From today still pending. Patient feels dry. His left leg cellulitis improving on IV cefazolin He continued on warfarin for his history of DVT and A-fib, INR is therapeutic. 07/01 Patient awake alert. He still complaining from some pain in his lower back improved with [place], right shoulder pain and x-ray showing no fracture but mild AC joint and glenoid joint arthropathy. Also patient followed by nephrology for acute kidney injury, creatinine slightly up from 2.89 up to 2.9. Currently he is placed on IV Lasix 40 mg daily, then switch to Lasix drip 10 mg/h and then later on lowered to 5 mg/h Flomax added as well as midodrine and Zaroxolyn. Blood pressure still borderline with systolic 88-111 Patient also on Augmentin for UTI with organism Enterococcus 07/02 Patient awake alert with no dizziness or generalized weakness although his blood pressure is on the low side. This morning was 92/58 He is currently being treated for left leg cellulitis and Enterococcus UTI and patient is on Unasyn Also he is on Lasix drip for his acute CHF and acute on chronic kidney disease, creatinine was 2.9, went up to 3.5 today He has been followed closely by nephrology and urology service, s/p Monzon catheter placement Also he is on Zaroxolyn, midodrine and furosemide. Continue with Eliquis while warfarin discontinued Patient on 07/15/2024 Patient remains in the ICU. He is in room 266. He is fully awake and oriented time place and person. He is breathing quiet and he looks relaxed not anxious. He is generally weak but with no other specific complaints His back pain about 3/10 He still has 2+ bilateral pitting leg edema Monzon catheter in place He is currently on Eliquis 2.5, IV Lasix 60 mg twice daily, IV Solu-Cortef at 50 mg as well as Levophed and metoprolol 100 mg. He is also on midodrine 10 mg He got hemodialysis yesterday with 2 L of fluid removed 07/16 Patient feels better No new complaint His back pain is 4/10, he takes [place] at nighttime to control his pain Has bilateral pitting leg edema 07/29 I am resuming the care of the patient today Patient was started on hemodialysis on 07/06. However patient has persistent bacteremia with MRSA also catheter tip was positive for MRSA Hemodialysis catheter was removed 2 days ago. Pending clearance by ID team before inserting a new 1. Patient still does not make much urine. Today he is lying in bed looks comfortable, generally weak. Mentation at baseline but somewhat slow. He answers questions and follows commands. He denies pain or any specific symptoms breathing is okay. He has some fluid overload evident on exam for example leg edema but breathing is okay. Blood pressure 92/54 WBC is 13, hemoglobin 10.3, platelet count 107, sodium 131 creatinine 4.4 Currently he is on daptomycin every 48 hours and Eliquis I have a meeting with son at bedside and all questions were answered Review of systems CONSTITUTIONAL: No fever, no malaise, no fatigue. HEENT: No recent visual problems or hearing problems. Denied any sore throat. CARDIOVASCULAR: No orthopnea, PND, no palpitations, no syncope. PULMONARY: No shortness of breath, no cough, no hemoptysis. GASTROINTESTINAL: No diarrhea, no nausea, no vomiting, no abdominal pain. Normoactive bowel sounds. ENDOCRINE: Denies any polyuria or polydipsia. Active Medications Generic Name Dose Route Start Last Admin Trade Name Freq PRN Reason Stop Dose Admin Acetaminophen 650 mg 06/28/24 19:35 07/29/24 06:22 Acetaminophen Tab 325 Mg Tab PO 650 mg Q6HR PRN Administration Fever and/ or Pain Hydrocodone Bitart/Acetaminophen 1 each 06/26/24 15:50 07/29/24 17:28 Hydrocodone/Apap 5-325mg 1 Each Tab PO 1 each Q6HR PRN Administration Pain Amiodarone HCl 200 mg 07/25/24 21:00 07/29/24 08:29 Amiodarone 200 Mg Tab PO 200 mg BID SOFI Administration Apixaban 2.5 mg 07/14/24 21:00 07/29/24 08:28 Apixaban 2.5 Mg Tablet PO 2.5 mg BID SOFI Administration Protocol Bisacodyl 10 mg 07/19/24 08:43 07/22/24 10:03 Bisacodyl 5 Mg Tablet.Dr PO 10 mg DAILY PRN Administration Constipation Cholecalciferol 50 mcg 06/28/24 09:00 07/29/24 08:29 Cholecalciferol 25 Mcg (1000 Iu) Tablet PO 50 mcg DAILY SOFI Administration Citalopram Hydrobromide 10 mg 06/28/24 09:00 07/29/24 08:28 Citalopram Hydrobromide 10 Mg Tab PO 10 mg DAILY SOFI Administration Daptomycin 700 mg/ Sodium 50 mls @ 100 mls/hr 07/24/24 13:00 07/28/24 12:00 Chloride IVPB 100 mls/hr Q48H SOFI Administration Protocol Latanoprost 1 drops 06/27/24 21:00 07/28/24 21:03 Latanoprost 0.005% Ophth Drops 2.5 Ml Btl RIGHT EYE 1 drops HS SOFI Administration Levothyroxine Sodium 100 mcg 07/18/24 06:30 07/29/24 06:22 Levothyroxine 100 Mcg Tab PO 100 mcg DAILY@0630 SOFI Administration Metoprolol Tartrate 50 mg 07/17/24 21:00 07/29/24 10:38 Metoprolol Tartrate 50 Mg Tab PO Not Given BID SOFI Midodrine 10 mg 07/02/24 13:00 07/29/24 17:28 Midodrine 5 Mg Tab PO 10 mg QID SOFI Administration Miscellaneous Information 1 each 06/27/24 21:02 Potassium Replacement Protocol 1 Each Misc MISCELLANE DAILY PRN Per Protocol Protocol Naloxone HCl 0.2 mg 06/26/24 17:49 Naloxone 0.4 Mg/Ml 1 Ml Vial IV Q2M PRN Opioid Reversal Pantoprazole Sodium 40 mg 07/04/24 07:30 07/29/24 06:22 Pantoprazole 40 Mg Tablet PO 40 mg [id number] SOFI Administration Petrolatum 1 applic 06/28/24 15:40 06/28/24 16:47 Zinc Oxide Paste (Z-Guard) 1 Applic TOPICAL 1 applic Q2HR PRN Administration Wound Healing Protocol Polyethylene Glycol 17 gm 07/07/24 21:35 07/20/24 13:48 Polyethylene Glycol 3350 17 Gm Powd.Pack PO 17 gm DAILY PRN Administration Constipation Probenecid 500 mg 06/27/24 21:00 07/29/24 08:28 Probenecid 500 Mg Tab PO 500 mg BID SOFI Administration Sevelamer Carbonate 800 mg 07/13/24 21:00 07/29/24 08:28 Sevelamer 800 Mg Tab PO 800 mg BID SOFI Administration Sodium Chloride 2 spray 07/09/24 11:24 07/09/24 22:21 Sodium Chloride 0.65% Nasal [place] 44 Ml Btl NASAL 2 spray QID PRN Administration Dry Nasal Passages Sodium Chloride 10 ml 07/27/24 21:00 07/29/24 08:29 Sodium Chloride 0.9% Flush 10 Ml Syringe IV 10 ml Q12HR SOFI Administration Objective - Vital Signs Vital signs: Vital Signs Temp 98.2 F 07/29/24 04:08 Pulse 94 07/29/24 12:02 Resp 18 07/29/24 12:02 BP 107/67 07/29/24 12:02 Pulse Ox 96 07/29/24 12:02 FiO2 21 07/22/24 04:00 Intake & Output 07/28/24 07/29/24 07/29/24 18:59 06:59 18:59 Intake Total 1018 237 Output Total 0 Balance 1018 237 Weight 161 kg Intake: IV 60 DAPTOmycin 700 mg In 50 Sodium Chloride 0.9% 50 ml @ 100 mls/hr IVPB Q48H SOFI Rx#:[id number] Invasive Line 1 10 Oral [id number] Output: Urine 0 Other: Voiding Method Urinal Urinal # Voids 1 0 ABP, PAP, CO, CI - Last Documented Arterial Blood Pressure 106/46 - Exam -GENERAL: The patient is alert and oriented x3, not in any acute distress. Well developed, well nourished. Obese HEENT: Pupils are round and equally reacting to light. EOMI. No scleral icterus. No conjunctival pallor. Normocephalic, atraumatic. No pharyngeal erythema. No thyromegaly. CARDIOVASCULAR: S1 and S2 present. No murmurs, rubs, or gallops. PULMONARY: Chest is clear to auscultation, no wheezing , no crackles. ABDOMEN: Soft, nontender, nondistended, normoactive bowel sounds. No palpable organomegaly. MUSCULOSKELETAL: No joint swelling or deformity. -EXTREMITIES: No cyanosis, clubbing, , 3+ bilateral pitting leg edema. Left leg is swollen, pink, warm and slightly tender. Bilateral pitting leg edema 1+, more on the left side NEUROLOGICAL: Gross neurological examination did not reveal any focal deficits. SKIN: No rashes. no petechiae. - Labs CBC & Chem 7: 07/29/24 06:38 07/29/24 06:30 Labs: Abnormal Lab Results - Last 24 Hours (Table) 07/29/24 07/29/24 Range/Units 06:30 06:38 WBC 13.8 H (3.8-10.6) k/uL RBC 3.04 L (4.30-5.90) m/uL Hgb 10.3 L (13.0-17.5) gm/dL Hct 32.8 L (39.0-53.0) % MCV 107.9 H (80.0-100.0) fL RDW 16.9 H (11.5-15.5) % Macrocytosis Marked A Sodium 131 L (137-145) mmol/L Chloride 97 L (98-107) mmol/L BUN 61 H (9-20) mg/dL Creatinine 4.14 H (0.66-1.25) mg/dL Calcium 8.2 L (8.4-10.2) mg/dL Total Bilirubin 3.8 H (0.2-1.3) mg/dL Alkaline Phosphatase 224 H (38-126) U/L Total Protein 5.7 L (6.3-8.2) g/dL Albumin 2.5 L (3.5-5.0) g/dL Microbiology - Last 24 Hours (Table) 07/26/24 12:47 Blood Culture Gram Stain - Final Blood Blood Culture - Final Methicillin resist S. aureus 07/26/24 05:57 Blood Culture Gram Stain - Final Blood Blood Culture - Final Methicillin resist S. aureus 10/24/24 17:20 Catheter Tip Culture - Preliminary Catheter Tip Presumptive MRSA Assessment and Plan Assessment: Acute oliguric kidney injury on chronic kidney disease stage III: Started on hemodialysis on 07/06 Persistent MRSA bacteremia secondary to catheter tip infection Acute diastolic CHF with preserved ejection fraction Hypotension secondary to above requiring pressor support. Currently off pressors Acute left leg cellulitis, resolved Fall at home Acute urinary tract infection secondary to Enterococcus group D, resolved Hepatosplenomegaly, patient has been told by Dr. Hansen he has nonalcoholic liver cirrhosis Chronic atrial fibrillations on Coumadin with high INR on admission, currently improved. Currently switched to Eliquis Obesity with BMI of 39.6 History of DVT Plan: Continue with antibiotic as per ID team. Currently patient is on daptomycin. Follow-up culture results patient getting hemodialysis as per nephrology team.currently on hold after permacath removed for bacteremia pending ID team clearance Pulmonary team consult Cardiology team consult Continue with Monzon catheter, Flomax and urology consult Continue with Eliquis IV Solu-Cortef was discontinued Labs and medication were reviewed.. Continue same treatment. Continue with symptomatic treatment. Resume home medication. Monitor labs and vitals. DVT and GI prophylaxis. Further recommendations as per clinical course of the patient DVT prophylaxis: Eliquis GI Prophylaxis: Pepcid PT/OT: Pending Prognosis is guarded
[2024-07-30] MEDS: HYDROmorphone 0.5 MG/0.5 ML SYRINGE IVP PRN (04:48)
[2024-07-30 09:17] LABS: African American GFR (CKD) 13 (>60 ml/min/1.73 sqM); Anion Gap 10 mmol/L; Blood Urea Nitrogen 74 mg/dL (9-20); Calcium 8.5 mg/dL (8.4-10.2); Carbon Dioxide 26 mmol/L (22-30); Chloride 97 mmol/L (98-107); Glucose 78 mg/dL (74-99); Non-African American GFR(CKD) 12 (>60 ml/min/1.73 sqM); Potassium 5.6 mmol/L (3.5-5.1); Sodium 133 mmol/L (137-145)
--- NOTE | 2024-07-30 10:03 | P.PN ---
Subjective Patient is seen in follow-up for acute kidney injury on chronic kidney disease. Started on hemodialysis July 06, 2024. Last dialysis July 27, 2024. Permacath removed July 27, 2024. Oliguric. Vital signs are stable. Blood pressure on the lower end. General: No acute distress. HEENT: Head exam is unremarkable. On room air. LUNGS: No audible rhonchi or wheezes. HEART: Rate and Rhythm are regular. ABDOMEN: Obese, nontender. EXTREMITITES: 2+ edema. Objective - Vital Signs Vital signs: Vital Signs Temp 97.3 F L 07/30/24 09:08 Pulse 98 07/30/24 09:41 Resp 18 07/30/24 09:41 BP 92/66 07/30/24 09:08 Pulse Ox 97 07/30/24 09:08 FiO2 21 07/22/24 04:00 Intake & Output 07/29/24 07/30/24 07/30/24 18:59 06:59 18:59 Intake Total 120 Output Total 0 Balance 120 0 Weight 164.337 kg Intake: Oral 120 Output: Urine 0 Other: Voiding Method Urinal Urinal # Voids 0 ABP, PAP, CO, CI - Last Documented Arterial Blood Pressure 106/46 - Labs CBC & Chem 7: 07/29/24 06:38 07/30/24 08:48 Labs: Abnormal Lab Results - Last 24 Hours (Table) 07/30/24 Range/Units 08:48 Sodium 133 L (137-145) mmol/L Potassium 5.6 H (3.5-5.1) mmol/L Chloride 97 L (98-107) mmol/L BUN 74 H (9-20) mg/dL Creatinine 4.57 H (0.66-1.25) mg/dL Microbiology - Last 24 Hours (Table) 07/27/24 17:20 Catheter Tip Culture - Final Catheter Tip Methicillin resist S. aureus 07/28/24 10:34 Blood Culture - Preliminary Blood 07/26/24 12:47 Blood Culture Gram Stain - Final Blood Blood Culture - Final Methicillin resist S. aureus 07/26/24 05:57 Blood Culture Gram Stain - Final Blood Blood Culture - Final Methicillin resist S. aureus Assessment and Plan Plan: Assessment: 1. Acute kidney injury secondary to ATN secondary to hypotension and cardiorenal syndrome. Creatinine up to 4.3 dated July 06, 2024. Started on hemodialysis July 06, 2024 via femoral dialysis catheter. Subsequently had permacath placed but was removed July 27, 2024 due to bacteremia. No hydronephrosis noted on ultrasound. Trace protein on UA. 2. 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 Creatinine 1.5 in March 2024. 3. Acute on chronic diastolic CHF and moderate mitral consultation, severe tricuspid regurgitation and pulmonary hypertension. 4. Volume overload. Improved with diuresis and ultrafiltration. 5. MRSA bacteremia. ID following. Permacath tip culture positive for MRSA. 6. Hypervolemic hyponatremia. Stable. 7. Hyperphosphatemia secondary to acute kidney injury. Phosphorus level 5.0 dated July 12, 2024. On Renvela. 8. Hyperkalemia secondary to acute kidney injury. Plan: Last hemodialysis was July 27, 2024. Permacath removed July 27, 2024. Change to renal diet. Maintain fluid restriction. Maintain midodrine. Avoid nephrotoxins. Continue to monitor renal function and urine output. Monzon catheter removed July 26, 2024. Continue to monitor labs daily. No response to IV Lasix given July 28, 2024. Await ID clearance for new permacath placement. Add Lokelma. 10 units IV regular insulin with an amp of D50 now. Repeat potassium level this evening.
[2024-07-30] MEDS: DEXTROSE 50% SYRINGE 50 ML IVP STA (10:40)
[2024-07-30] MEDS: SODIUM ZIRCONIUM CYCLOSILICATE 10 GM PACKET PO SCH (10:41)
[2024-07-30] MEDS: INSULIN REGULAR 100 UNIT/ML VIAL (IV) IV ONE (10:41)
--- NOTE | 2024-07-30 11:26 | P.PN ---
Subjective History of present illness; patient 78-year-old gentleman with past medical history significant for A-fib, DVT, hypertension, hyperlipidemia presented the ER because of worsening weakness and fall. Patient states that for the last few days he has been noticing that his left lower leg was getting red and more painful. Patient has history of lower extremity swelling and normally wraps them to help with swelling. There was no complaint of fever or chills. Patient has been complaining of increasing weakness. Patient had a fall yesterday. Th ere was no complaint of any trauma to the head. There was no loss of consciousness. Denied any chest pain or shortness of breath. Because of the symptoms, patient brought to the ER Initial lab work done in the ER showed showed WBC 1.7, hemoglobin 12.6, platelet count 169, INR 10, sodium 136, potassium 3.5, BUN 52, creatinine 2.19, glucose 117, bilirubin 5 AST 167, ALT 48 troponin 0.012, albumin 3.2 UA positive for leukocyte esterase, urine WBC 14 Influenza A not detected Influenza B not detected RSV not detected COVID-19 not detected X-ray of pelvis done, no evidence of any fractures EKG done in the ER showed heart rate of 94, no ST segment elevation or depression seen, no T-wave inversions seen. Chest x-ray done in the ER showed small right pleural effusion CT head done showed no acute intracranial process CT cervical spine done showed no fractures. Duplex ultrasound of lower extremities done showed no DVT Patient admitted to internal medicine service 06/28 Patient is lying in bed does not look in distress He still complaining from some pain in his left leg about 3/10, his left leg swollen pink warm and tender He has been treated for CHF, he has bilateral leg swelling, it is hard to hear basal crepitation as he is obese He still feels generally weak No other new complaint He is currently treated with cefazolin but urine culture is growing Enterococcus. Patient denies overt UTI signs symptoms currently Also is on IV Lasix 40 mg 3 times a day He was given warfarin 5 mg after INR came down to 3.0 down to 2.1 today [place]calcitonin [place] [address] Creatinine 2.2 today, was 2.1 last 2 days, baseline 1.4-1.7 Blood pressure is borderline 06/29 his left leg cellulitis is improving, still has swollen of the legs. No chest pain or dyspnea or other new complaint He is using CPAP machine at night Vitals are stable Labs from today are still pending. Yesterday his INR was therapeutic at 2.1. Urine culture is growing Enterococcus which is sensitive Continue with Coumadin. He denies any urinary tract symptoms he has external urinary catheter. Keep monitoring creatinine 06/30 Patient awake alert, using CPAP machine overnight. Denies chest pain or dyspnea He still complains from right shoulder pain from falling prior to coming to the hospital. He cannot raise his arm above his head with some limitation. We are going to order x-ray of the right shoulder. He still have generalized weakness He still have significant 3+ bilateral leg swelling, he is on IV Lasix 40 mg twice daily. However his INR has been trending up. Creatinine was 2.5 yes terday. From today still pending. Patient feels dry. His left leg cellulitis improving on IV cefazolin He continued on warfarin for his history of DVT and A-fib, INR is therapeutic. 07/01 Patient awake alert. He still complaining from some pain in his lower back improved with Chamisal, right shoulder pain and x-ray showing no fracture but mild AC joint and glenoid joint arthropathy. Also patient followed by nephrology for acute kidney injury, creatinine slightly up from 2.89 up to 2.9. Currently he is placed on IV Lasix 40 mg daily, then switch to Lasix drip 10 mg/h and then later on lowered to 5 mg/h Flomax added as well as midodrine and Zaroxolyn. Blood pressure still borderline with systolic 88-111 Patient also on Augmentin for UTI with organism Enterococcus 07/02 Patient awake alert with no dizziness or generalized weakness although his blood pressure is on the low side. This morning was 92/58 He is currently being treated for left leg cellulitis and Enterococcus UTI and patient is on Unasyn Also he is on Lasix drip for his acute CHF and acute on chronic kidney disease, creatinine was 2.9, went up to 3.5 today He has been followed closely by nephrology and urology service, s/p Monzon catheter placement Also he is on Zaroxolyn, midodrine and furosemide. Continue with Eliquis while warfarin discontinued Patient on 07/15/2024 Patient remains in the ICU. He is in room 266. He is fully awake and oriented time place and person. He is breathing quiet and he looks relaxed not anxious. He is generally weak but with no other specific complaints His back pain about 3/10 He still has 2+ bilateral pitting leg edema Monzon catheter in place He is currently on Eliquis 2.5, IV Lasix 60 mg twice daily, IV Solu-Cortef at 50 mg as well as Levophed and metoprolol 100 mg. He is also on midodrine 10 mg He got hemodialysis yesterday with 2 L of fluid removed 07/16 Patient feels better No new complaint His back pain is 4/10, he takes Chamisal at nighttime to control his pain Has bilateral pitting leg edema 07/29 Patient was started on hemodialysis on 07/06. However patient has persistent bacteremia with MRSA also catheter tip was positive for MRSA Hemodialysis catheter was removed 2 days ago. Pending clearance by ID team before inserting a new 1. Patient still does not make much urine. Today he is lying in bed looks comfortable, generally weak. Mentation at baseline but somewhat slow. He answers questions and follows commands. He denies pain or any specific symptoms breathing is okay. He has some fluid overload evident on exam for example leg edema but breathing is okay. Blood pressure 92/54 WBC is 13, hemoglobin 10.3, platelet count 107, sodium 131 creatinine 4.4 Currently he is on daptomycin every 48 hours and Cain I have a meeting with son at bedside and all questions were answered 07/30 Patient repeat blood culture still negative so far while he remains on daptomycin every 48 hours If remains negative by tomorrow may be considered for permacath placement for his hemodialysis which can be resumed in He is mildly fluid overload load, he is mildly tachypneic, mildly delirious. Other than that he follows commands calm and nice and pleasant No other specific complaints Review of systems CONSTITUTIONAL: No fever, no malaise, no fatigue. HEENT: No recent visual problems or hearing problems. Denied any sore throat. CARDIOVASCULAR: No orthopnea, PND, no palpitations, no syncope. PULMONARY: No shortness of breath, no cough, no hemoptysis. GASTROINTESTINAL: No diarrhea, no nausea, no vomiting, no abdominal pain. Normo active bowel sounds. ENDOCRINE: Denies any polyuria or polydipsia. Active Medications Generic Name Dose Route Start Last Admin Trade Name Freq PRN Reason Stop Dose Admin Acetaminophen 650 mg 06/28/24 19:35 07/30/24 02:33 Acetaminophen Tab 325 Mg Tab PO 650 mg Q6HR PRN Administration Fever and/ or Pain Hydrocodone Bitart/Acetaminophen 1 each 06/26/24 15:50 07/29/24 23:45 Hydrocodone/Apap 5-325mg 1 Each Tab PO 1 each Q6HR PRN Administration Pain Amiodarone HCl 200 mg 07/25/24 21:00 07/30/24 09:11 Amiodarone 200 Mg Tab PO 200 mg BID SOFI Administration Apixaban 2.5 mg 07/14/24 21:00 07/30/24 09:11 Apixaban 2.5 Mg Tablet PO 2.5 mg BID SOFI Administration Protocol Bisacodyl 10 mg 07/19/24 08:43 07/22/24 10:03 Bisacodyl 5 Mg Tablet.Dr PO 10 mg DAILY PRN Administration Constipation Cholecalciferol 50 mcg 06/28/24 09:00 07/30/24 09:11 Cholecalciferol 25 Mcg (1000 Iu) Tablet PO 50 mcg DAILY SOFI Administration Citalopram Hydrobromide 10 mg 06/28/24 09:00 07/30/24 09:11 Citalopram Hydrobromide 10 Mg Tab PO 10 mg DAILY SOFI Administration Hydromorphone HCl 0.5 mg 07/30/24 04:36 07/30/24 10:52 Hydromorphone 0.5 Mg/0.5 Ml Syringe IVP 0.5 mg Q6HR PRN Administration Pain Daptomycin 700 mg/ Sodium 50 mls @ 100 mls/hr 07/24/24 13:00 07/28/24 12:00 Chloride IVPB 100 mls/hr Q48H SOFI Administration Protocol Latanoprost 1 drops 06/27/24 21:00 07/29/24 20:26 Latanoprost 0.005% Ophth Drops 2.5 Ml Btl RIGHT EYE 1 drops HS SOFI Administration Levothyroxine Sodium 100 mcg 07/18/24 06:30 07/30/24 06:01 Levothyroxine 100 Mcg Tab PO 100 mcg DAILY@0630 SOFI Administration Metoprolol Tartrate 50 mg 07/17/24 21:00 07/30/24 10:41 Metoprolol Tartrate 50 Mg Tab PO 50 mg BID SOFI Administration Midodrine 10 mg 07/02/24 13:00 07/30/24 09:11 Midodrine 5 Mg Tab PO 10 mg QID SOFI Administration Miscellaneous Information 1 each 06/27/24 21:02 Potassium Replacement Protocol 1 Each Misc MISCELLANE DAILY PRN Per Protocol Protocol Naloxone HCl 0.2 mg 06/26/24 17:49 Naloxone 0.4 Mg/Ml 1 Ml Vial IV Q2M PRN Opioid Reversal Pantoprazole Sodium 40 mg 07/04/24 07:30 07/30/24 06:01 Pantoprazole 40 Mg Tablet PO 40 mg [id number]-[id number] SOFI Administration Petrolatum 1 applic 06/28/24 15:40 06/28/24 16:47 Zinc Oxide Paste (Z-Guard) 1 Applic TOPICAL 1 applic Q2HR PRN Administration Wound Healing Protocol Polyethylene Glycol 17 gm 07/07/24 21:35 07/20/24 13:48 Polyethylene Glycol 3350 17 Gm Powd.Pack PO 17 gm DAILY PRN Administration Constipation Probenecid 500 mg 06/27/24 21:00 07/30/24 09:11 Probenecid 500 Mg Tab PO 500 mg BID SOFI Administration Sevelamer Carbonate 800 mg 07/13/24 21:00 07/30/24 09:13 Sevelamer 800 Mg Tab PO Not Given BID SOFI Sodium Chloride 2 spray 07/09/24 11:24 07/09/24 22:21 Sodium Chloride 0.65% Nasal [place] 44 Ml Btl NASAL 2 spray QID PRN Administration Dry Nasal Passages Sodium Chloride 10 ml 07/27/24 21:00 07/30/24 09:13 Sodium Chloride 0.9% Flush 10 Ml Syringe IV 10 ml Q12HR SOFI Administration Sodium Zirconium Cyclosilicate 10 gm 07/30/24 10:30 07/30/24 10:41 Sodium Zirconium Cyclosilicate 10 Gm Packet PO 07/31/24 21:01 10 gm BID SOFI Administration Objective - Vital Signs Vital signs: Vital Signs Temp 97.3 F L 07/30/24 09:08 Pulse 98 07/30/24 09:41 Resp 18 07/30/24 09:41 BP 92/66 07/30/24 09:08 Pulse Ox 97 07/30/24 09:08 FiO2 21 07/22/24 04:00 Intake & Output 07/29/24 07/30/2424 18:59 06:59 18:59 Intake Total 120 Output Total 0 Balance 120 0 Weight 164.337 kg Intake: Oral 120 Output: Urine 0 Other: Voiding Method Urinal Urinal # Voids 0 ABP, PAP, CO, CI - Last Documented Arterial Blood Pressure 106/46 - Exam -GENERAL: The patient is alert and oriented x3, not in any acute distress. Well developed, well nourished. Obese HEENT: Pupils are round and equally reacting to light. EOMI. No scleral icterus. No conjunctival pallor. Normocephalic, atraumatic. No pharyngeal erythema. No thyromegaly. CARDIOVASCULAR: S1 and S2 present. No murmurs, rubs, or gallops. PULMONARY: Chest is clear to auscultation, no wheezing , no crackles. ABDOMEN: Soft, nontender, nondistended, normoactive bowel sounds. No palpable organomegaly. MUSCULOSKELETAL: No joint swelling or deformity. -EXTREMITIES: No cyanosis, clubbing, , 3+ bilateral pitting leg edema. Left leg is swollen, pink, warm and slightly tender. Bilateral pitting leg edema 1+, more on the left side NEUROLOGICAL: Gross neurological examination did not reveal any focal deficits. SKIN: No rashes. no petechiae. - Labs CBC & Chem 7: 07/29/24 06:38 07/30/24 08:48 Labs: Abnormal Lab Results - Last 24 Hours (Table) 07/30/24 Range/Units 08:48 Sodium 133 L (137-145) mmol/L Potassium 5.6 H (3.5-5.1) mmol/L Chloride 97 L (98-107) mmol/L BUN 74 H (9-20) mg/dL Creatinine 4.57 H (0.66-1.25) mg/dL Microbiology - Last 24 Hours (Table) 07/27/24 17:20 Catheter Tip Culture - Final Catheter Tip Methicillin resist S. aureus 07/28/24 10:34 Blood Culture - Preliminary Blood 07/26/24 12:47 Blood Culture Gram Stain - Final Blood Blood Culture - Final Methicillin resist S. aureus 07/26/24 05:57 Blood Culture Gram Stain - Final Blood Blood Culture - Final Methicillin resist S. aureus Assessment and Plan Assessment: Acute oliguric kidney injury on chronic kidney disease stage III: Started on hemodialysis on 07/06 Persistent MRSA bacteremia secondary to catheter tip infection Acute diastolic CHF with preserved ejection fraction Hypotension secondary to above requiring pressor support. Currently off pressors Acute left leg cellulitis, resolved Fall at home Acute urinary tract infection secondary to Enterococcus group D, resolved Hepatosplenomegaly, patient has been told by Dr. Hansen he has nonalcoholic liver cirrhosis Chronic atrial fibrillations on Coumadin with high INR on admission, currently improved. Currently switched to Eliquis Obesity with BMI of 39.6 History of DVT Plan: Continue with antibiotic as per ID team. Currently patient is on daptomycin. Follow-up culture results patient getting hemodialysis as per nephrology team.currently on hold after permacath removed for bacteremia pending ID team clearance Pulmonary team consult Cardiology team consult Continue with Monzon catheter, Flomax and urology consult Continue with Eliquis IV Solu-Cortef was discontinued Labs and medication were reviewed.. Continue same treatment. Continue with symptomatic treatment. Resume home medication. Monitor labs and vitals. DVT and GI prophylaxis. Further recommendations as per clinical course of the patient DVT prophylaxis: Eliquis GI Prophylaxis: Pepcid PT/OT: Pending Prognosis is guarded
--- NOTE | 2024-07-30 13:41 | P.PN ---
Subjective Progress Note Date: 07/30/24 Principal diagnosis: Acute on chronic right-sided congestive heart failure with chronic hypotension This is a 78-year-old male patient with massive fluid overload, ongoing diffic ulty with chronic kidney failure as the patient has developed an acute on top of chronic renal disease with extensive third spacing and anasarca and possibly a component of cardiorenal syndrome. 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 Baseline creatinine is around 1.5 back in March 2024. The patient presented to us with volume overload, acute on top of chronic diastolic heart failure with moderate mitral regurgitation. Patient also was diagnosed having an Enterococcus urinary tract infection currently on IV Unasyn. Initial rate, attempts to diurese this patient with Lasix have failed due to ongoing hypotension. The patient was started on midodrine 10 mg p.o. 4 times daily. Subsequently, I was asked to transfer this patient to the ICU for hemodynamic support and pressor use as the patient was going to be started on Lasix 5 mg infusion in combination with Zaroxolyn 5 mg p.o. daily. Based on that, the patient was transferred to the ICU. Lasix s drip was started and the patient will be started also on norepinephrine for blood pressure support. He is currently awake and alert. Following commands. He is on oxygen at 2 L/min nasal cannula. His chest x-ray showing small bilateral pleural effusion and this is less x-ray that was done on 06/26/2024. On 07/21/2024, the patient is undergoing hemodialysis. His blood pressure is stable. The patient was taken off the IV Solu-Cortef yesterday. He remains on metoprolol 50 mg p.o. twice daily. He remains in atrial fibrillation. Rate is controlled for now. He is tolerating dialysis reasonably well. No hemodynamic instability and the patient remains on room air oxygen with a pulse ox of 95%. No other significant events overnight. On 07/22/2024, patient is being seen in follow-up. The patient was transferred to the intensive. As the patient became hypotensive and he developed atrial fibrillation with rapid ventricular response. He was placed on a Cardizem drip at 5 mg an hour and currently is off the Cardizem. He also received a total of 1 L of IV fluid normal saline bolus. Subsequently, the patient was started on low-dose norepinephrine and currently norepinephrine is running at 0.03 mcg/kg/min. Last hemodialysis session was on 07/21/2024 and a total of 2.4 L of fluid was removed. He is currently on 3 days of oxygen by nasal cannula. Awake and alert and communicating. Afebrile. White cell count is 16 with a hemoglobin of 11 and a platelet count of 144. BUN is 80 with a creatinine of 3.6. Sodium levels at 133. No respiratory distress. He was taken off the IV hydrocortisone yesterday. Patient was seen today on 07/24/2024, patient is in the ICU, receiving hemodialysis during my evaluation, not requiring any pressors, patient received full course of treatment for his cellulitis and UTI secondary to Enterococcus faecalis, patient is being followed by infectious disease. Repeat blood cultures today are positive for gram-positive cocci in clusters suspected MRSA, infectious disease will be notified and may have to go back on antibio tics/vancomycin. CBC is 13.4 hemoglobin 10.7. Electrolytes are normal except for potassium of 6 which will be corrected after hemodialysis today. BUN is 106 creatinine 4.49 Patient evaluated today on 07/25/2024, patient remains in the ICU, he is on 2 L nasal cannula, not in distress, yesterday I was told about his positive blood cultures showing MRSA patient is now on daptomycin. Patient also had an episode of atrial fibrillation with RVR I bolused the patient with amiodarone, presently on amiodarone drip at 0.5 mg/min, and cardiology will transition his amiodarone today to oral amiodarone. His right lower extremity cellulitis seems to be improving. Patient is on anticoagulation therapy/Eliquis. Not in distress, seems to be doing fairly well overall. Hence considering the patient is hemodynamically stable today, I would likely transfer the patient to a monitored bed on 3 S. today. Patient had ultrafiltration yesterday and 2 L of fluids were removed. WBC count is 13.4 hemoglobin is 10.4 electrolytes showed low sodium of 131 BUN is 82 creatinine 4.08 Was seen today on 07/26/2024, patient is basically the same, remains in the ICU, on room air, not in any distress, undergoing hemodialysis. Blood pressure seems to have stabilized, he is not requiring any pressors, patient is basically an overflow in the ICU, waiting for a bed on 3 S. WBC count is 13.5 hemoglobin 10.7 basic metabolic profile is normal potassium is 5.3 BUN is 95 creatinine 4.34 patient is still undergoing hemodialysis as recommended by nephrology. Seems to be tolerating dialysis quite well, and not requiring pressors at this point. Hemodialysis was started on this patient on July 06 and he has a permacath in place remains on antibiotics for his right lower extremity cellulitis which seems to be improving. Patient was seen today on 07/28/2024, remains on room air, not in any distress, his last hemodialysis was yesterday July 27, permacath removed July 27, patient is oliguric. Patient remains on Lasix 80 mg IV push was given today. Nephrology is waiting for ID to clear for new permacath placement.Remind you patient had positive blood cultures showing MRSA, his blood cultures from yesterday were positive. For this reason his dialysis catheter has been removed and felt to be most likely infected and the source of his bacteremia.His WBC count today is 12.6 hemoglobin 11.3 basic metabolic profile is normal BUN is 57 creatinine 3.41 Seen today on 07/29/2024, patient is calm, comfortable, on room air, not in distress, his last hemodialysis was July 27, his permacath has been removed because of bacteremia and catheter related sepsis. WBC count today is 13.8 hemoglobin 10.3 electrolytes are normal BUN is 61 creatinine 4.14 Patient was seen today on 07/30/2024 patient is comfortable, not in distress, on room air, hemodynamically stable, patient is supposed to have his permacath placed tomorrow and restart on hemodialysis. In the meantime he is developing worsening renal picture and worsening hyperkalemia which is being addressed by nephrology on the case, remains on antibiotics for his positive blood cultures patient's potassium today is 5.6 and BUN is 74 creatinine 4.57. Patient does not respond to diuretics. Objective - Vital Signs Vital signs: Vital Signs Temp 97.3 F L 07/30/24 09:08 Pulse 100 07/30/24 11:59 Resp 18 07/30/24 11:59 BP 95/64 07/30/24 11:59 Pulse Ox 95 07/30/24 11:59 FiO2 21 07/22/24 04:00 Intake & Output 07/29/24 07/30/24 07/30/24 18:59 06:59 18:59 Intake Total 120 Output Total 0 Balance 120 0 Weight 164.337 kg Intake: Oral 120 Output: Urine 0 Other: Voiding Method Urinal Urinal # Voids 0 ABP, PAP, CO, CI - Last Documented Arterial Blood Pressure 106/46 - Exam General: Revealed a 78-year-old white male morbidly obese on room air, not in distress Head: Atraumatic, normocephalic Neck positive jugular venous distension, thyromegaly, or carotid bruits. Carotid upstrokes are brisk bilaterally. Lungs: Good breath sound bilaterally slightly diminished at the bases only Cardiac: Distant S1-S2, no S3 gallop, no murmur. Abdominal: Morbidly obese soft nontender no megaly positive abdominal wall edema Extremities trace of + bipedal edema femoral and pedal pulses are normal. Left lower extremity was examined after removing the dressing and there is definite cellulitis and minimal superficial ulceration of the right lower extremity in the mid calf region Neurologically, alert oriented x 3 no gross focal deficits Psychiatric: Normal mood affect and no mental status examination. Skin: Decreased left leg swelling, redness, no open wounds or any drainage - Labs CBC & Chem 7: 07/29/24 06:38 07/30/24 08:48 Labs: Abnormal Lab Results - Last 24 Hours (Table) 07/30/24 Range/Units 08:48 Sodium 133 L (137-145) mmol/L Potassium 5.6 H (3.5-5.1) mmol/L Chloride 97 L (98-107) mmol/L BUN 74 H (9-20) mg/dL Creatinine 4.57 H (0.66-1.25) mg/dL Microbiology - Last 24 Hours (Table) 07/27/24 17:20 Catheter Tip Culture - Final Catheter Tip Methicillin resist S. aureus 07/28/24 10:34 Blood Culture - Preliminary Blood 07/26/24 12:47 Blood Culture Gram Stain - Final Blood Blood Culture - Final Methicillin resist S. aureus 07/26/24 05:57 Blood Culture Gram Stain - Final Blood Blood Culture - Final Methicillin resist S. aureus Assessment and Plan Assessment: Impression: MRSA bacteremia most likely source is permacath dialysis catheter which has been removed and his last hemodialysis was on the Acute on chronic diastolic congestive heart failure with hypotension, improving MRSA bacteremia, most likely related to his dialysis catheter, being addressed by infectious disease on the case. Hypotension, multifactorial Acute on chronic stage IIIb kidney disease with massive volume overload and initiated on hemodialysis, last hemodialysis session was on 07/21/2024 with 2.4 L of ultrafiltration. Hyperlipidemia Chronic atrial fibrillation, maintained on anticoagulation with Eliquis Enterococcus faecalis urinary tract infection completed Unasyn. Severe pulmonary hypertension Morbid obesity Gout History of obstructive sleep apnea, not tolerant to CPAP therapy Previous history of WPW and SVT Osteoarthritis Previous history of DVT of lower extremities Glaucoma Recommendation: Plans to have his permacath placed back again tomorrow by vascular surgery, assuming his blood cultures from the are negative Continue present supportive care measures Continue Lokelma Continue oral amiodarone Continue antibiotics/daptomycin Presently hemodialysis is on hold Continue midodrine Will continue to monitor. Overall prognosis remains extremely poor and guarded. Time with Patient: Less than 30
--- NOTE | 2024-07-30 15:14 | P.PN ---
Subjective Progress Note Date: 07/30/24 Principal diagnosis: Reason for follow-up is left leg cellulitis Patient is a 78-year-old male with a past medical history significant for atrial fibrillation hypertension hyperlipidemia osteoarthritis sleep apnea presenting to the hospital for evaluation of weakness and fall patient was initially treated for cellulitis UTI and subsequently signed off and the patient has been in the hospital undergoing treatment for his acute renal failure patient did have a dialysis catheter placement and is undergoing dialysis patient was running a low-grade fever blood culture has been obtained which came back positive with MRSA prompting reevaluation for this bacteremia. On today's evaluation that is 07/30/2024, Patient is afebrile patient is currently on room air and denies having any shortness of breath, the patient denies any chest pain or cough, the patient denies any nausea vomiting did not have any abdominal pain and no diarrhea, no new symptoms. No CBC was done today his creatinine is 4.57 blood culture from 07/28/2024 so far negative Objective - Vital Signs Vital signs: Vital Signs Temp 97.3 F L 07/30/24 09:08 Pulse 100 07/30/24 11:59 Resp 18 07/30/24 11:59 BP 95/64 07/30/24 11:59 Pulse Ox 95 07/30/24 11:59 FiO2 21 07/22/24 04:00 Intake & Output 07/29/24 07/30/24 07/30/24 18:59 06:59 18:59 Intake Total 120 Output Total 0 Balance 120 0 Weight 164.337 kg Intake: Oral 120 Output: Urine 0 Other: Voiding Method Urinal Urinal # Voids 0 ABP, PAP, CO, CI - Last Documented Arterial Blood Pressure 106/46 - Exam GENERAL DESCRIPTION: An elderly male lying in bed in no distress RESPIRATORY SYSTEM: Unlabored breathing , decreased breath sounds at bases HEART: S1 S2 regular rate and rhythm , ABDOMEN: Soft , no tenderness EXTREMITIES: Bilateral extremity swelling no redness - Labs CBC & Chem 7: 07/29/24 06:38 07/30/24 08:48 Labs: Abnormal Lab Results - Last 24 Hours (Table) 07/30/24 Range/Units 08:48 Sodium 133 L (137-145) mmol/L Potassium 5.6 H (3.5-5.1) mmol/L Chloride 97 L (98-107) mmol/L BUN 74 H (9-20) mg/dL Creatinine 4.57 H (0.66-1.25) mg/dL Microbiology - Last 24 Hours (Table) 07/27/24 17:20 Catheter Tip Culture - Final Catheter Tip Methicillin resist S. aureus 07/28/24 10:34 Blood Culture - Preliminary Blood 07/26/24 12:47 Blood Culture Gram Stain - Final Blood Blood Culture - Final Methicillin resist S. aureus 07/26/24 05:57 Blood Culture Gram Stain - Final Blood Blood Culture - Final Methicillin resist S. aureus Assessment and Plan (1) MRSA bacteremia Current Visit: Yes Status: Acute Code(s): R78.81 - BACTEREMIA; B95.62 - METHICILLIN RESIS STAPH INFCT CAUSING DISEASES CLASSD [facility] SNOMED Code(s): 97290399738965600 (2) Sepsis Current Visit: Yes Status: Acute Code(s): A41.9 - SEPSIS, UNSPECIFIED ORGANISM SNOMED Code(s): 03257852 Plan: 1patient with sepsis in this patient who did have a fever elevated white count hypotension requiring pressor support and now with evidence of MRSA bacteremia likely the source of the sepsis and possible related to his dialysis catheter 2-patient did have persistent bacteremia and the blood cultures from the dialysis catheter also positive highly suspicious for dialysis catheter infection which has been discontinued catheter tip culture positive for MRSA 3-patient blood culture from 07/28/2024 so far negative if remains to be negative at 72-hour may be able to get a new permacatheter for dialysis if needed however if he cannot wait another day they will be better keeping in mind his extensive bacteremia and will continue with the daptomycin at the bedside question answered Dictation was produced using [employer] dictation software. please excuse any grammatical, word or spelling errors. Time with Patient: Less than 30
--- NOTE | 2024-07-31 08:37 | P.PN ---
Subjective Progress Note Date: 07/31/24 This is a 78-year-old male who originally presented to the emergency department after a fall at home, reportedly his knee gave out. Patient also complained of shortness of breath and feels poorly overall. Patient became hypotensive and was transferred to the ICU. Creatinine remains elevated and he has been on Lasix drip. Patient lives with his at home, who he cares for. Patient seen this morning resting comfortably in bed. He is still hypotensive this morning. Creatinine today is 3.77. 07/10/2024 Patient was started on hemodialysis on 07/06. He is currently off of lasix drip but still on pressors. He is seen this morning laying in bed. He reports he is more fatigued today. 07/11/2024 Patient seen and evaluated laying in bed this morning. He is still on Levophed. Creatinine today is 3.3. He does appear more fatigued today. He did have dialysis yesterday. 07/13/2024 Patient seen and evaluated laying in bed this morning. He still remains on Levophed. He had dialysis yesterday. Creatinine today is 2.97. Patient appears to be in better spirits today. 07/17/2024 Patient seen and evaluated laying in bed this morning eating breakfast. He is currently off of Levophed and pressure is holding. Dialysis is now on a Wednesday schedule. Creatinine is 4.52 today. 07/24/2024 Patient seen and evaluated resting comfortably in bed this morning. He was back on pressors over the weekend but is currently off of pressors and maintained on midodrine. Plan is for dialysis today. 07/25/2024 Patient seen and evaluated laying in bed this morning. Blood pressure has been holding, maintained on midodrine. Yesterday blood cultures were positive and he was started on daptomycin. Patient appears more fatigued today. 07/27/2024 Patient seen and evaluated laying in bed this morning. Monzon catheter was removed yesterday. He was transferred to a medical floor yesterday. Blood pressure still low but stable. Patient working with therapy to increase strength to be able to sit in chair for dialysis. 07/31/2024 Patient seen and evaluated this morning laying in bed. Patient states he is very tired this morning, concerned that he has not been getting better. Patient has not been able to get up safely with physical therapy. Patient is requesting a hospice consult for more information today. Patient's is also admitted to this hospital at this time. Objective - Vital Signs Vital signs: Vital Signs Temp 97.4 F L 07/30/24 20:30 Pulse 101 H 07/31/24 04:03 Resp 18 07/31/24 04:03 BP 100/70 07/31/24 04:03 Pulse Ox 95 07/31/24 04:03 FiO2 21 07/22/24 04:00 Intake & Output 07/30/24 07/31/24 07/31/24 18:59 06:59 18:59 Intake Total 120 Output Total 50 Balance 120 -50 Weight 158.8 kg Intake: Oral 120 Output: Urine 50 Other: Voiding Method Urinal Urinal ABP, PAP, CO, CI - Last Documented Arterial Blood Pressure 106/46 - Constitutional General appearance: Present: cooperative, no acute distress - EENT Eyes: Present: PERRLA - Neck Neck: Present: normal ROM. Absent: lymphadenopathy, rigidity - Respiratory Respiratory: bilateral: CTA - Cardiovascular Heart sounds: normal: S1, S2 - Gastrointestinal General gastrointestinal: Present: soft. Absent: tenderness - Integumentary Integumentary: Present: normal turgor - Musculoskeletal Musculoskeletal: Present: generalized weakness - Psychiatric Psychiatric: Present: A&O x's 3 - Labs CBC & Chem 7: 07/29/24 06:38 07/30/24 16:07 Labs: Abnormal Lab Results - Last 24 Hours (Table) 07/30/24 Range/Units 08:48 Sodium 133 L (137-145) mmol/L Potassium 5.6 H (3.5-5.1) mmol/L Chloride 97 L (98-107) mmol/L BUN 74 H (9-20) mg/dL Creatinine 4.57 H (0.66-1.25) mg/dL Microbiology - Last 24 Hours (Table) 07/28/24 10:34 Blood Culture - Preliminary Blood 07/27/24 17:20 Catheter Tip Culture - Final Catheter Tip Methicillin resist S. aureus Assessment and Plan (1) Hypotension Current Visit: Yes Status: Acute Code(s): I95.9 - HYPOTENSION, UNSPECIFIED SNOMED Code(s): 82383961 (2) Weakness Current Visit: Yes Status: Acute Code(s): R53.1 - WEAKNESS SNOMED Code(s): 28796319 (3) Cellulitis Current Visit: Yes Status: Acute Code(s): L03.90 - CELLULITIS, UNSPECIFIED SNOMED Code(s): 751417182 (4) Acute kidney injury Current Visit: Yes Status: Acute Code(s): N17.9 - ACUTE KIDNEY FAILURE, UNSPECIFIED SNOMED Code(s): 78832196 (5) Acute on chronic heart failure Current Visit: Yes Status: Acute Code(s): I50.9 - HEART FAILURE, UNSPECIFIED SNOMED Code(s): 953436387 (6) Hyponatremia Current Visit: Yes Status: Acute Code(s): E87.1 - HYPO-OSMOLALITY AND HYPONATREMIA SNOMED Code(s): 95885819 (7) MRSA bacteremia Current Visit: Yes Status: Acute Code(s): R78.81 - BACTEREMIA; B95.62 - METHICILLIN RESIS STAPH INFCT [facility] Code(s): 19167237720353964 Plan: Check CBC and CMP in the morning. Will put in consult for hospice, patient would like more information before making a final decision. Will increase pain medication. Patient seen and evaluated by nurse practitioner, physician in agreement with plan
[2024-07-31] MEDS: HYDROcodone/APAP 7.5-325MG 1 EACH TAB PO PRN (10:49)
[2024-07-31 12:10] LABS: African American GFR (CKD) 11 (>60 ml/min/1.73 sqM); Anion Gap 14 mmol/L; Blood Urea Nitrogen 79 mg/dL (9-20); Calcium 8.5 mg/dL (8.4-10.2); Carbon Dioxide 22 mmol/L (22-30); Chloride 96 mmol/L (98-107); Glucose 80 mg/dL (74-99); Magnesium 2.3 mg/dL (1.6-2.3); Non-African American GFR(CKD) 10 (>60 ml/min/1.73 sqM); Potassium 5.5 mmol/L (3.5-5.1); Sodium 132 mmol/L (137-145)
--- NOTE | 2024-07-31 12:19 | P.PN ---
Subjective Progress Note Date: 07/31/24 Principal diagnosis: Reason for follow-up is left leg cellulitis Patient is a 78-year-old male with a past medical history significant for atrial fibrillation hypertension hyperlipidemia osteoarthritis sleep apnea presenting to the hospital for evaluation of weakness and fall patient was initially treated for cellulitis UTI and subsequently signed off and the patient has been in the hospital undergoing treatment for his acute renal failure patient did have a dialysis catheter placement and is undergoing dialysis patient was running a low-grade fever blood culture has been obtained which came back positive with MRSA prompting reevaluation for this bacteremia. On today's evaluation that is 07/31/2024, patient has been afebrile, patient is breathing comfortably and is currently on room air, patient denies having any significant cough no chest pain, patient denies nausea vomiting or diarrhea and no abdominal pain, mention feeling slightly better. Patient did have a creatinine of 5.35 potassium is 5.5 blood cultures from 07/28/2024 remains to be negative Objective - Vital Signs Vital signs: Vital Signs Temp 98.2 F 07/31/24 07:55 Pulse 100 07/31/24 07:55 Resp 16 07/31/24 07:55 BP 116/70 07/31/24 07:55 Pulse Ox 94 L 07/31/24 07:55 FiO2 21 07/22/24 04:00 Intake & Output 07/30/24 07/31/24 07/31/24 18:59 06:59 18:59 Intake Total 120 360 Output Total 50 Balance 120 -50 360 Weight 158.8 kg Intake: Oral 120 360 Output: Urine 50 Other: Voiding Method Urinal Urinal Urinal ABP, PAP, CO, CI - Last Documented Arterial Blood Pressure 106/46 - Exam GENERAL DESCRIPTION: An elderly male lying in bed in no distress RESPIRATORY SYSTEM: Unlabored breathing , decreased breath sounds at bases HEART: S1 S2 regular rate and rhythm , ABDOMEN: Soft , no tenderness EXTREMITIES: Bilateral extremity swelling no redness - Labs CBC & Chem 7: 07/29/24 06:38 07/31/24 11:04 Labs: Microbiology - Last 24 Hours (Table) 07/28/24 10:34 Blood Culture - Preliminary Blood 07/27/24 17:20 Catheter Tip Culture - Final Catheter Tip Methicillin resist S. aureus Assessment and Plan (1) MRSA bacteremia Current Visit: Yes Status: Acute Code(s): R78.81 - BACTEREMIA; B95.62 - METHICILLIN RESIS STAPH INFCT CAUSING DISEASES CLASSD [facility] SNOMED Code(s): 41050950523301048 (2) Sepsis Current Visit: Yes Status: Acute Code(s): A41.9 - SEPSIS, UNSPECIFIED ORGANISM SNOMED Code(s): 58480766 Plan: 1patient with sepsis in this patient who did have a fever elevated white count hypotension requiring pressor support and now with evidence of MRSA bacteremia likely the source of the sepsis and possible related to his dialysis catheter 2-patient did have persistent bacteremia and the blood cultures from the dialysis catheter also positive highly suspicious for dialysis catheter infection which has been discontinued catheter tip culture positive for MRSA 3-patient blood culture from 07/28/2024 remains to be negative patient but to get permacatheter if dialysis is needed but if we can wait till tomorrow that may be better for now continue with the daptomycin question and concerns answered Dictation was produced using [employer] dictation software. please excuse any grammatical, word or spelling errors. Time with Patient: Less than 30
--- NOTE | 2024-07-31 13:01 | P.PN ---
Subjective Progress Note Date: 07/31/24 Principal diagnosis: Cellulitis. This is a 78-year-old male patient with massive fluid overload, ongoing difficulty with chronic kidney failure as the patient has developed an acute on top of chronic renal disease with extensive third spacing and anasarca and possibly a component of cardiorenal syndrome. 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 Baseline creatinine is around 1.5 back in March 2024. The patient presented to us with volume overload, acute on top of chronic diastolic heart failure with moderate mitral regurgitation. Patient also was diagnosed having an Enterococcus urinary tract infection currently on IV Unasyn. Initial rate, attempts to diurese this patient with Lasix have failed due to ongoing hypotension. The patient was started on midodrine 10 mg p.o. 4 times daily. Subsequently, I was asked to transfer this patient to the ICU for hemodynamic support and pressor use as the patient was going to be started on Lasix 5 mg infusion in combination with Zaroxolyn 5 mg p.o. daily. Based on that, the patient was transferred to the ICU. Lasix s drip was started and the patient will be started also on norepinephrine for blood pressure support. He is currently awake and alert. Following commands. He is on oxygen at 2 L/min nasal cannula. His chest x-ray showing small bilateral pleural effusion and this is less x-ray that was done on 06/26/2024. On 07/21/2024, the patient is undergoing hemodialysis. His blood pressure is stable. The patient was taken off the IV Solu-Cortef yesterday. He remains on metoprolol 50 mg p.o. twice daily. He remains in atrial fibrillation. Rate is controlled for now. He is tolerating dialysis reasonably well. No hemodynamic instability and the patient remains on room air oxygen with a pulse ox of 95%. No other significant events overnight. On 07/22/2024, patient is being seen in follow-up. The patient was transferred to the intensive. As the patient became hypotensive and he developed atrial fibrillation with rapid ventricular response. He was placed on a Cardizem drip at 5 mg an hour and currently is off the Cardizem. He also received a total of 1 L of IV fluid normal saline bolus. Subsequently, the patient was started on low-dose norepinephrine and currently norepinephrine is running at 0.03 mcg/kg/min. Last hemodialysis session was on 07/21/2024 and a total of 2.4 L of fluid was removed. He is currently on 3 days of oxygen by nasal cannula. Awake and alert and communicating. Afebrile. White cell count is 16 with a hemo globin of 11 and a platelet count of 144. BUN is 80 with a creatinine of 3.6. Sodium levels at 133. No respiratory distress. He was taken off the IV hydrocortisone yesterday. Patient was seen today on 07/24/2024, patient is in the ICU, receiving hemodialysis during my evaluation, not requiring any pressors, patient received full course of treatment for his cellulitis and UTI secondary to Enterococcus faecalis, patient is being followed by infectious disease. Repeat blood cultures today are positive for gram-positive cocci in clusters suspected MRSA, infectious disease will be notified and may have to go back on antibiotics/vancomycin. CBC is 13.4 hemoglobin 10.7. Electrolytes are normal except for potassium of 6 which will be corrected after hemodialysis today. BUN is 106 creatinine 4.49 Patient evaluated today on 07/25/2024, patient remains in the ICU, he is on 2 L nasal cannula, not in distress, yesterday I was told about his positive blood cultures showing MRSA patient is now on daptomycin. Patient also had an episode of atrial fibrillation with RVR I bolused the patient with amiodarone, presently on amiodarone drip at 0.5 mg/min, and cardiology will transition his amiodarone today to oral amiodarone. His right lower extremity cellulitis seems to be improving. Patient is on anticoagulation therapy/Eliquis. Not in distress, seems to be doing fairly well overall. Hence considering the patient is hemodynamically stable today, I would likely transfer the patient to a monitored bed on 3 S. today. Patient had ultrafiltration yesterday and 2 L of fluids were removed. WBC count is 13.4 hemoglobin is 10.4 electrolytes showed low sodium of 131 BUN is 82 creatinine 4.08 Was seen today on 07/26/2024, patient is basically the same, remains in the ICU, on room air, not in any distress, undergoing hemodialysis. Blood pressure seems to have stabilized, he is not requiring any pressors, patient is basically an overflow in the ICU, waiting for a bed on 3 S. WBC count is 13.5 hemoglobin 10.7 basic metabolic profile is normal potassium is 5.3 BUN is 95 creatinine 4.34 patient is still undergoing hemodialysis as recommended by nephrology. Seems to be tolerating dialysis quite well, and not requiring pressors at this point. Hemodialysis was started on this patient on July 06 and he has a permacath in place remains on antibiotics for his right lower extremity cellulitis which seems to be improving. Patient was seen today on 07/28/2024, remains on room air, not in any distress, his last hemodialysis was yesterday July 27, permacath removed July 27, patient is oliguric. Patient remains on Lasix 80 mg IV push was given today. Nephrology is waiting for ID to clear for new permacath placement.Remind you patient had positive blood cultures showing MRSA, his blood cultures from yesterday were positive. For this reason his dialysis catheter has been removed and felt to be most likely infected and the source of his bacteremia.His WBC count today is 12.6 hemoglobin 11.3 basic metabolic profile is normal BUN is 57 creatinine 3.41 Seen today on 07/29/2024, patient is calm, comfortable, on room air, not in distress, his last hemodialysis was July 27, his permacath has been removed because of bacteremia and catheter related sepsis. WBC count today is 13.8 hemoglobin 10.3 electrolytes are normal BUN is 61 creatinine 4.14 Patient was seen today on 07/30/2024 patient is comfortable, not in distress, on room air, hemodynamically stable, patient is supposed to have his permacath placed tomorrow and restart on hemodialysis. In the meantime he is developing worsening renal picture and worsening hyperkalemia which is being addressed by nephrology on the case, remains on antibiotics for his positive blood cultures patient's potassium today is 5.6 and BUN is 74 creatinine 4.57. Patient does not respond to diuretics. Progress note dated July 31, 2024. 78-year-old male who is now been in the hospital for 35 days. The patient was last seen by me in the intensive care unit, back on July 16. Currently, he is on room air. He is not receiving any IV fluids. Cultures are positive for methicillin-resistant Staph aureus. The patient is on daptomycin. Current labs include a sodium 132, potassium 5.5, chlorides 96, CO2 22, BUN 79, and creatinine 5.35. Catheter tip culture, from July 27, and , show evidence of methicillin-resistant Staph aureus. Blood cultures are also positive for MRSA. Objective - Vital Signs Vital signs: Vital Signs Temp 98.2 F 07/31/24 11:00 Pulse 94 07/31/24 11:00 Resp 16 07/31/24 11:00 BP 95/63 07/31/24 11:00 Pulse Ox 92 L 07/31/24 11:00 FiO2 21 07/22/24 04:00 Intake & Output 07/30/24 07/31/24 07/31/24 18:59 06:59 18:59 Intake Total 120 360 Output Total 50 Balance 120 -50 360 Weight 158.8 kg Intake: Oral 120 360 Output: Urine 50 Other: Voiding Method Urinal Urinal Urinal ABP, PAP, CO, CI - Last Documented Arterial Blood Pressure 106/46 - Exam No acute distress, oriented 3. Currently on room air. The patient is morbidly obese. HEENT examination is grossly unremarkable. Mucous membranes are moist. No oral lesions. Neck supple. Full range of motion. No adenopathy thyromegaly or neck vein dis tention. Cardiovascular examination reveals regular rhythm rate. S1-S2 normal. No S3 or S4. No discernible murmur noted. Lungs reveal clear breath sounds. Slightly diminished basilar lung sounds. Breath sounds are equal bilaterally. No adventitious lung sounds including wheezes rhonchi or crackles. Abdomen soft bowel sounds are heard. No masses or tenderness. Extremities are intact. No cyanosis or clubbing. 1+ edema is noted. Evidence of left lower extremity cellulitis, and superficial ulceration of the right lower extremity, mid calf. Skin is without rash or lesion. Neurologic examination is brief but nonfocal. - Labs CBC & Chem 7: 07/29/24 06:38 07/31/24 11:04 Labs: Abnormal Lab Results - Last 24 Hours (Table) 07/31/24 Range/Units 11:04 Sodium 132 L (137-145) mmol/L Potassium 5.5 H (3.5-5.1) mmol/L Chloride 96 L (98-107) mmol/L BUN 79 H (9-20) mg/dL Creatinine 5.35 H (0.66-1.25) mg/dL Microbiology - Last 24 Hours (Table) 07/28/24 10:34 Blood Culture - Preliminary Blood 07/27/24 17:20 Catheter Tip Culture - Final Catheter Tip Methicillin resist S. aureus Assessment and Plan Assessment: MRSA bacteremia, currently on daptomycin. Acute on chronic diastolic CHF, with hypotension, improved. Methicillin-resistant Staph aureus bacteremia. Hypotension, multifactorial, improved. Acute on chronic stage IIIb kidney disease, currently on hemodialysis. Hyperlipidemia. Chronic atrial fibrillation. Enterococcus faecalis UTI, treated. Severe pulmonary hypertension. Morbid obesity. History of gout. History of sleep apnea syndrome. Prior history of WPW and SVT. Osteoarthritis. History of DVT of the lower extremities. History of glaucoma. Plan: Plan dated July 31, 2024. The patient continues on daptomycin for his methicillin-resistant Staph aureus infection. Labs, x-rays, medications are reviewed. We will continue to follow make recommendations along the way. The patient has now been here in the hospital for 35 days. He has a DO NOT RESUSCITATE patient. That seems to be appropriate to me. We will continue to follow make recommendations along the way. Time with Patient: Less than 30
--- NOTE | 2024-07-31 13:01 | P.PN ---
Subjective Patient is seen for follow-up for acute kidney injury and chronic kidney disease. Started on hemodialysis on 07/06/2024 due to worsening volume status. Patient had been hypotensive with positive blood cultures for MRSA. Dialysis catheter was removed on 07/27/2024. He remains oliguric and currently awaiting blood cultures to be negative for dialysis catheter placement. No complaints of shortness of breath. Serum potassium 5.5 today. Objective - Vital Signs Vital signs: Vital Signs Temp 98.2 F 07/31/24 11:00 Pulse 94 07/31/24 11:00 Resp 16 07/31/24 11:00 BP 95/63 07/31/24 11:00 Pulse Ox 92 L 07/31/24 11:00 FiO2 21 07/22/24 04:00 Intake & Output 07/30/24 07/31/24 07/31/24 18:59 06:59 18:59 Intake Total 120 360 Output Total 50 Balance 120 -50 360 Weight 158.8 kg Intake: Oral 120 360 Output: Urine 50 Other: Voiding Method Urinal Urinal Urinal ABP, PAP, CO, CI - Last Documented Arterial Blood Pressure 106/46 - Exam Patient is awake, comfortable, no acute distress. Examination of the heart S1 and S2 Examination of the lungs decreased breath sounds at the bases Abdomen is soft obese nontender Examination of lower extremities shows edema 1+ bilaterally, with chronic skin changes. [employer] exam grossly intact - Labs CBC & Chem 7: 07/29/24 06:38 07/31/24 11:04 Labs: Abnormal Lab Results - Last 24 Hours (Table) 07/31/24 Range/Units 11:04 Sodium 132 L (137-145) mmol/L Potassium 5.5 H (3.5-5.1) mmol/L Chloride 96 L (98-107) mmol/L BUN 79 H (9-20) mg/dL Creatinine 5.35 H (0.66-1.25) mg/dL Microbiology - Last 24 Hours (Table) 07/28/24 10:34 Blood Culture - Preliminary Blood 07/27/24 17:20 Catheter Tip Culture - Final Catheter Tip Methicillin resist S. aureus Assessment and Plan Assessment: 1. Acute kidney injury secondary to ATN secondary to hypotension and cardiorenal syndrome. Started on hemodialysis on 07/06/2024 due to worsening renal function and persistent volume overload. No hydronephrosis noted on ultrasound. Trace protein on UA. Right IJ permacath removed on 07/27/2024 due to MRSA bacteremia. Last dialysis on 07/27/2024 2. 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 Creatinine 1.5 in March 2024. 3. Acute on chronic diastolic CHF and moderate mitral consultation, severe tricuspid regurgitation and pulmonary hypertension. 4. Volume overload. Improved with dialysis and ultrafiltration. 5. Right lower extremity cellulitis and Enterococcus UTI on antibiotics. ID following. 6. Hypervolemic hyponatremia. Improved 7. MRSA bacteremia. Status post removal off permacath. Tip culture was positive for MRSA Plan: awaiting blood cultures to be negative for placement of dialysis catheter. Receiving low-calorie for hyperkalemia. Repeat potassium this evening and treat with IV insulin and D50 if remains elevated.
[2024-07-31 14:10] VITALS: BMI 46.1
[2024-08-01] MEDS: HYDROmorphone 2 MG/ML 1 ML SYRINGE IVP PRN (06:34)
[2024-08-01 07:30] LABS: Anisocytosis Slight; HCT 32.6 % (39.0-53.0); HGB 10.5 gm/dL (13.0-17.5); Hypochromasia Slight; MCH 34.5 pg (25.0-35.0); MCHC 32.2 g/dL (31.0-37.0); MCV 107.2 fL (80.0-100.0); Macrocytosis Marked; Mean Platelet Volume 8.7; Platelet Count 171 k/uL (150-450); RBC 3.04 m/uL (4.30-5.90); RDW 17.1 % (11.5-15.5)
[2024-08-01 07:47] LABS: ALT 12 U/L (4-49); AST 22 U/L (17-59); African American GFR (CKD) 9 (>60 ml/min/1.73 sqM); Albumin 2.7 g/dL (3.5-5.0); Alkaline Phosphatase 203 U/L (38-126); Anion Gap 13 mmol/L; Blood Urea Nitrogen 80 mg/dL (9-20); Calcium 8.5 mg/dL (8.4-10.2); Carbon Dioxide 24 mmol/L (22-30); Chloride 95 mmol/L (98-107); Glucose 79 mg/dL (74-99); Non-African American GFR(CKD) 8 (>60 ml/min/1.73 sqM); Potassium 5.2 mmol/L (3.5-5.1); Sodium 132 mmol/L (137-145); Total Bilirubin 4.6 mg/dL (0.2-1.3); Total Protein 6.3 g/dL (6.3-8.2)
--- NOTE | 2024-08-01 08:48 | P.PN ---
Subjective Progress Note Date: 08/01/24 This is a 78-year-old male who originally presented to the emergency department after a fall at home, reportedly his knee gave out. Patient also complained of shortness of breath and feels poorly overall. Patient became hypotensive and was transferred to the ICU. Creatinine remains elevated and he has been on Lasix drip. Patient lives with his at home, who he cares for. Patient seen this morning resting comfortably in bed. He is still hypotensive this morning. Creatinine today is 3.77. 07/10/2024 Patient was started on hemodialysis on 07/06. He is currently off of lasix drip but still on pressors. He is seen this morning laying in bed. He reports he is more fatigued today. 07/11/2024 Patient seen and evaluated laying in bed this morning. He is still on Levophed. Creatinine today is 3.3. He does appear more fatigued today. He did have dialysis yesterday. 07/13/2024 Patient seen and evaluated laying in bed this morning. He still remains on Levophed. He had dialysis yesterday. Creatinine today is 2.97. Patient appears to be in better spirits today. 07/17/2024 Patient seen and evaluated laying in bed this morning eating breakfast. He is currently off of Levophed and pressure is holding. Dialysis is now on a Wednesday schedule. Creatinine is 4.52 today. 07/24/2024 Patient seen and evaluated resting comfortably in bed this morning. He was back on pressors over the weekend but is currently off of pressors and maintained on midodrine. Plan is for dialysis today. 07/25/2024 Patient seen and evaluated laying in bed this morning. Blood pressure has been holding, maintained on midodrine. Yesterday blood cultures were positive and he was started on daptomycin. Patient appears more fatigued today. 07/27/2024 Patient seen and evaluated laying in bed this morning. Monzon catheter was removed yesterday. He was transferred to a medical floor yesterday. Blood pressure still low but stable. Patient working with therapy to increase strength to be able to sit in chair for dialysis. 07/31/2024 Patient seen and evaluated this morning laying in bed. Patient states he is very tired this morning, concerned that he has not been getting better. Patient has not been able to get up safely with physical therapy. Patient is requesting a hospice consult for more information today. Patient's is also admitted to this hospital at this time. 08/01/2024 Patient seen and evaluated laying in bed this morning. He was difficult to arouse during examination. Still unable to do hemodilaysis due to infected cath and awaiting final culture results. Hospice had discussion with patient and his yesterday, they reportedly have still not made a decision. Patient's creatinine up to 6.28 today. His prognosis is very poor. Objective - Vital Signs Vital signs: Vital Signs Temp 97.7 F 08/01/24 07:35 Pulse 129 H 08/01/24 07:35 Resp 18 08/01/24 07:35 BP 86/59 08/01/24 07:35 Pulse Ox 93 L 08/01/24 07:35 FiO2 21 07/22/24 04:00 Intake & Output 07/31/24 08/01/24 08/01/24 18:59 06:59 18:59 Intake Total 720 Balance 720 Weight 158.8 kg 350.9 kg 158.712 kg Intake: Oral 720 Other: Voiding Method Urinal Urinal External Catheter # Voids 1 # Bowel Movements 1 ABP, PAP, CO, CI - Last Documented Arterial Blood Pressure 106/46 - Constitutional General appearance: Present: cooperative, no acute distress - Neck Neck: Present: normal ROM. Absent: lymphadenopathy, rigidity - Respiratory Respiratory: bilateral: diminished - Cardiovascular Heart sounds: normal: S1, S2 - Gastrointestinal General gastrointestinal: Present: soft - Musculoskeletal Musculoskeletal: Present: generalized weakness - Labs CBC & Chem 7: 08/01/24 07:02 08/01/24 07:02 Labs: Abnormal Lab Results - Last 24 Hours (Table) 07/31/24 08/01/24 08/01/24 Range/Units 11:04 07:02 07:02 WBC 17.0 H (3.8-10.6) k/uL RBC 3.04 L (4.30-5.90) m/uL Hgb 10.5 L (13.0-17.5) gm/dL Hct 32.6 L (39.0-53.0) % MCV 107.2 H (80.0-100.0) fL RDW 17.1 H (11.5-15.5) % Macrocytosis Marked A Sodium 132 L 132 L (137-145) mmol/L Potassium 5.5 H 5.2 H (3.5-5.1) mmol/L Chloride 96 L 95 L (98-107) mmol/L BUN 79 H 80 H (9-20) mg/dL Creatinine 5.35 H 6.28 H (0.66-1.25) mg/dL Total Bilirubin 4.6 H (0.2-1.3) mg/dL Alkaline Phosphatase 203 H (38-126) U/L Albumin 2.7 L (3.5-5.0) g/dL Microbiology - Last 24 Hours (Table) 07/30/24 16:16 Blood Culture - Preliminary Blood 07/28/24 10:34 Blood Culture - Preliminary Blood Assessment and Plan (1) Hypotension Current Visit: Yes Status: Acute Code(s): I95.9 - HYPOTENSION, UNSPECIFIED SNOMED Code(s): 68909053 (2) Weakness Current Visit: Yes Status: Acute Code(s): R53.1 - WEAKNESS SNOMED Code(s): 17767790 (3) Cellulitis Current Visit: Yes Status: Acute Code(s): L03.90 - CELLULITIS, UNSPECIFIED SNOMED Code(s): 676196563 (4) Acute kidney injury Current Visit: Yes Status: Acute Code(s): N17.9 - ACUTE KIDNEY FAILURE, UNSPECIFIED SNOMED Code(s): 16397302 (5) Acute on chronic heart failure Current Visit: Yes Status: Acute Code(s): I50.9 - HEART FAILURE, UNSPECIFIED SNOMED Code(s): 852557743 (6) Hyponatremia Current Visit: Yes Status: Acute Code(s): E87.1 - HYPO-OSMOLALITY AND HYPONATREMIA SNOMED Code(s): 83220390 (7) MRSA bacteremia Current Visit: Yes Status: Acute Code(s): R78.81 - BACTEREMIA; B95.62 - METHICILLIN RESIS STAPH INFCT CAUSING DISEASES CLASSD ELSWHR SNOMED Code(s): 48004894100207475 Plan: Check CMP in the morning. Await final decision from family and patient regarding hospice care. Prognosis remains poor. Continue to keep patient comfortable with pain medication. Patient seen and evaluated by nurse practitioner, physician in agreement with plan.
--- NOTE | 2024-08-01 12:03 | P.PN ---
Subjective Progress Note Date: 08/01/24 Principal diagnosis: Cellulitis. This is a 78-year-old male patient with massive fluid overload, ongoing difficulty with chronic kidney failure as the patient has developed an acute on top of chronic renal disease with extensive third spacing and anasarca and possibly a component of cardiorenal syndrome. 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 Baseline creatinine is around 1.5 back in March 2024. The patient presented to us with volume overload, acute on top of chronic diastolic heart failure with moderate mitral regurgitation. Patient also was diagnosed having an Enterococcus urinary tract infection currently on IV Unasyn. Initial rate, attempts to diurese this patient with Lasix have failed due to ongoing hypotension. The patient was started on midodrine 10 mg p.o. 4 times daily. Subsequently, I was asked to transfer this patient to the ICU for hemodynamic support and pressor use as the patient was going to be started on Lasix 5 mg infusion in combination with Zaroxolyn 5 mg p.o. daily. Based on that, the patient was transferred to the ICU. Lasix s drip was started and the patient will be started also on norepinephrine for blood pressure support. He is currently awake and alert. Following commands. He is on oxygen at 2 L/min nasal cannula. His chest x-ray showing small bilateral pleural effusion and this is less x-ray that was done on 06/26/2024. On 07/21/2024, the patient is undergoing hemodialysis. His blood pressure is stable. The patient was taken off the IV Solu-Cortef yesterday. He remains on metoprolol 50 mg p.o. twice daily. He remains in atrial fibrillation. Rate is controlled for now. He is tolerating dialysis reasonably well. No hemodynamic instability and the patient remains on room air oxygen with a pulse ox of 95%. No other significant events overnight. On 07/22/2024, patient is being seen in follow-up. The patient was transferred to the intensive. As the patient became hypotensive and he developed atrial fibrillation with rapid ventricular response. He was placed on a Cardizem drip at 5 mg an hour and currently is off the Cardizem. He also received a total of 1 L of IV fluid normal saline bolus. Subsequently, the patient was started on low-dose norepinephrine and currently norepinephrine is running at 0.03 mcg/kg/min. Last hemodialysis session was on 07/21/2024 and a total of 2.4 L of fluid was removed. He is currently on 3 days of oxygen by nasal cannula. Awake and alert and communicating. Afebrile. White cell count is 16 with a hemo globin of 11 and a platelet count of 144. BUN is 80 with a creatinine of 3.6. Sodium levels at 133. No respiratory distress. He was taken off the IV hydrocortisone yesterday. Patient was seen today on 07/24/2024, patient is in the ICU, receiving hemodialysis during my evaluation, not requiring any pressors, patient received full course of treatment for his cellulitis and UTI secondary to Enterococcus faecalis, patient is being followed by infectious disease. Repeat blood cultures today are positive for gram-positive cocci in clusters suspected MRSA, infectious disease will be notified and may have to go back on antibiotics/vancomycin. CBC is 13.4 hemoglobin 10.7. Electrolytes are normal except for potassium of 6 which will be corrected after hemodialysis today. BUN is 106 creatinine 4.49 Patient evaluated today on 07/25/2024, patient remains in the ICU, he is on 2 L nasal cannula, not in distress, yesterday I was told about his positive blood cultures showing MRSA patient is now on daptomycin. Patient also had an episode of atrial fibrillation with RVR I bolused the patient with amiodarone, presently on amiodarone drip at 0.5 mg/min, and cardiology will transition his amiodarone today to oral amiodarone. His right lower extremity cellulitis seems to be improving. Patient is on anticoagulation therapy/Eliquis. Not in distress, seems to be doing fairly well overall. Hence considering the patient is hemodynamically stable today, I would likely transfer the patient to a monitored bed on 3 S. today. Patient had ultrafiltration yesterday and 2 L of fluids were removed. WBC count is 13.4 hemoglobin is 10.4 electrolytes showed low sodium of 131 BUN is 82 creatinine 4.08 Was seen today on 07/26/2024, patient is basically the same, remains in the ICU, on room air, not in any distress, undergoing hemodialysis. Blood pressure seems to have stabilized, he is not requiring any pressors, patient is basically an overflow in the ICU, waiting for a bed on 3 S. WBC count is 13.5 hemoglobin 10.7 basic metabolic profile is normal potassium is 5.3 BUN is 95 creatinine 4.34 patient is still undergoing hemodialysis as recommended by nephrology. Seems to be tolerating dialysis quite well, and not requiring pressors at this point. Hemodialysis was started on this patient on July 06 and he has a permacath in place remains on antibiotics for his right lower extremity cellulitis which seems to be improving. Patient was seen today on 07/28/2024, remains on room air, not in any distress, his last hemodialysis was yesterday July 27, permacath removed July 27, patient is oliguric. Patient remains on Lasix 80 mg IV push was given today. Nephrology is waiting for ID to clear for new permacath placement.Remind you patient had positive blood cultures showing MRSA, his blood cultures from yesterday were positive. For this reason his dialysis catheter has been removed and felt to be most likely infected and the source of his bacteremia.His WBC count today is 12.6 hemoglobin 11.3 basic metabolic profile is normal BUN is 57 creatinine 3.41 Seen today on 07/29/2024, patient is calm, comfortable, on room air, not in distress, his last hemodialysis was July 27, his permacath has been removed because of bacteremia and catheter related sepsis. WBC count today is 13.8 hemoglobin 10.3 electrolytes are normal BUN is 61 creatinine 4.14 Patient was seen today on 07/30/2024 patient is comfortable, not in distress, on room air, hemodynamically stable, patient is supposed to have his permacath placed tomorrow and restart on hemodialysis. In the meantime he is developing worsening renal picture and worsening hyperkalemia which is being addressed by nephrology on the case, remains on antibiotics for his positive blood cultures patient's potassium today is 5.6 and BUN is 74 creatinine 4.57. Patient does not respond to diuretics. Progress note dated July 31, 2024. 78-year-old male who is now been in the hospital for 35 days. The patient was last seen by me in the intensive care unit, back on July 16. Currently, he is on room air. He is not receiving any IV fluids. Cultures are positive for methicillin-resistant Staph aureus. The patient is on daptomycin. Current labs include a sodium 132, potassium 5.5, chlorides 96, CO2 22, BUN 79, and creatinine 5.35. Catheter tip culture, from July 27, and , show evidence of methicillin-resistant Staph aureus. Blood cultures are also positive for MRSA. Progress note dated August 01, 2024. 78-year-old male who is now been in the hospital for 36 days. The patient was seen in room 371. He is currently on room air, with saturations of 92%. Is not receiving any IV fluids. The patient is a DO NOT RESUSCITATE patient. Labs today include a white count 17, hemoglobin 10.5, hematocrit 32.6, and platelet count 171,000. Sodium 132, potassium 5.2, chloride 95, CO2 24, BUN 80, creatinine 6.28. Bilirubin is 4.6. Albumin is 2.7. The patient is poorly responsive. He mostly just moans. Most recent blood cultures from July 27, showed methicillin-resistant Staph aureus. Objective - Vital Signs Vital signs: Vital Signs Temp 97.5 F L 08/01/24 11:36 Pulse 116 H 08/01/24 11:36 Resp 18 08/01/24 11:36 BP 106/69 08/01/24 11:36 Pulse Ox 92 L 08/01/24 11:36 FiO2 21 07/22/24 04:00 Intake & Output 07/31/24 08/01/24 08/01/24 18:59 06:59 18:59 Intake Total 720 10 Output Total 0 Balance 720 10 Weight 158.8 kg 350.9 kg 158.712 kg Intake: IV 10 Invasive Line 1 10 Oral 720 Output: Urine 0 Other: Voiding Method Urinal Urinal External Catheter # Voids 1 # Bowel Movements 1 ABP, PAP, CO, CI - Last Documented Arterial Blood Pressure 106/46 - Exam No acute distress, oriented 3. Currently on room air. The patient is morbidly obese. HEENT examination is grossly unremarkable. Mucous membranes are moist. No oral lesions. Neck supple. Full range of motion. No adenopathy thyromegaly or neck vein distention. Cardiovascular examination reveals regular rhythm rate. S1-S2 normal. No S3 or S4. No discernible murmur noted. Lungs reveal clear breath sounds. Slightly diminished basilar lung sounds. Breath sounds are equal bilaterally. No adventitious lung sounds including wheezes rhonchi or crackles. Abdomen soft bowel sounds are heard. No masses or tenderness. Extremities are intact. No cyanosis or clubbing. 1+ edema is noted. Evidence of left lower extremity cellulitis, and superficial ulceration of the right lower extremity, mid calf. Skin is without rash or lesion. Neurologic examination is brief but nonfocal. - Labs CBC & Chem 7: 08/01/24 07:02 08/01/24 07:02 Labs: Abnormal Lab Results - Last 24 Hours (Table) 07/31/24 08/01/24 08/01/24 Range/Units 11:04 07:02 07:02 WBC 17.0 H (3.8-10.6) k/uL RBC 3.04 L (4.30-5.90) m/uL Hgb 10.5 L (13.0-17.5) gm/dL Hct 32.6 L (39.0-53.0) % MCV 107.2 H (80.0-100.0) fL RDW 17.1 H (11.5-15.5) % Macrocytosis Marked A Sodium 132 L 132 L (137-145) mmol/L Potassium 5.5 H 5.2 H (3.5-5.1) mmol/L Chloride 96 L 95 L (98-107) mmol/L BUN 79 H 80 H (9-20) mg/dL Creatinine 5.35 H 6.28 H (0.66-1.25) mg/dL Total Bilirubin 4.6 H (0.2-1.3) mg/dL Alkaline Phosphatase 203 H (38-126) U/L Albumin 2.7 L (3.5-5.0) g/dL Microbiology - Last 24 Hours (Table) 07/30/24 16:16 Blood Culture - Preliminary Blood 07/28/24 10:34 Blood Culture - Preliminary Blood Assessment and Plan Assessment: MRSA bacteremia, currently on daptomycin. Acute on chronic diastolic CHF, with hypotension, improved. Methicillin-resistant Staph aureus bacteremia. Hypotension, multifactorial, improved. Acute on chronic stage IIIb kidney disease, currently on hemodialysis. Hyperlipidemia. Chronic atrial fibrillation. Enterococcus faecalis UTI, treated. Severe pulmonary hypertension. Morbid obesity. History of gout. History of sleep apnea syndrome. Prior history of WPW and SVT. Osteoarthritis. History of DVT of the lower extremities. History of glaucoma. Plan: Plan dated July 31, 2024. The patient continues on daptomycin for his methicillin-resistant Staph aureus infection. Labs, x-rays, medications are reviewed. We will continue to follow make recommendations along the way. The patient has now been here in the hospital for 35 days. He has a DO NOT RESUSCITATE patient. That seems to be appropriate to me. We will continue to follow make recommendations along the way. Plan dated August 01, 2024. The patient is seen today in room 371. The patient continues on daptomycin for methicillin-resistant Staph aureus bacteremia. Labs, x-rays, and all medications are reviewed. The patient is currently on room air. The patient is not receiving any IV fluids. The patient does not appear to be in any distress, but the patient is very somnolent/lethargic, and mostly moans. We will continue to follow the patient, make recommendations along the way. Overall prognosis remains poor. Again, the patient is a DO NOT RESUSCITATE patient. Time with Patient: Less than 30
--- NOTE | 2024-08-01 13:16 | P.PN ---
Subjective Progress Note Date: 08/01/24 Principal diagnosis: Reason for follow-up is left leg cellulitis Patient is a 78-year-old male with a past medical history significant for atrial fibrillation hypertension hyperlipidemia osteoarthritis sleep apnea presenting to the hospital for evaluation of weakness and fall patient was initially treated for cellulitis UTI and subsequently signed off and the patient has been in the hospital undergoing treatment for his acute renal failure patient did have a dialysis catheter placement and is undergoing dialysis patient was running a low-grade fever blood culture has been obtained which came back positive with MRSA prompting reevaluation for this bacteremia. On today's evaluation that is 08/01/2024, Patient is afebrile this morning patient denies having any chest pain shortness of breath or cough, the patient is currently on room air, patient denies any abdominal pain no diarrhea no nausea no vomiting, apparently the patient was refusing dialysis catheter placement this morning want to be hospice subsequently change his mind. Patient white count is up to 17,000, creatinine 6.28 blood culture from 07/28/2024 as well as 07/30/2024 has been negative. Objective - Vital Signs Vital signs: Vital Signs Temp 97.8 F 08/01/24 10:26 Pulse 110 H 08/01/24 10:26 Resp 18 08/01/24 10:26 BP 97/64 08/01/24 10:26 Pulse Ox 92 L 08/01/24 10:26 FiO2 21 07/22/24 04:00 Intake & Output 07/31/24 08/01/24 08/01/24 18:59 06:59 18:59 Intake Total 720 10 Balance 720 10 Weight 158.8 kg 350.9 kg 158.712 kg Intake: IV 10 Invasive Line 1 10 Oral 720 Other: Voiding Method Urinal Urinal External Catheter # Voids 1 # Bowel Movements 1 ABP, PAP, CO, CI - Last Documented Arterial Blood Pressure 106/46 - Exam GENERAL DESCRIPTION: An elderly male lying in bed in no distress RESPIRATORY SYSTEM: Unlabored breathing , decreased breath sounds at bases HEART: S1 S2 regular rate and rhythm , ABDOMEN: Soft , no tenderness EXTREMITIES: Bilateral extremity swelling no redness - Labs CBC & Chem 7: 08/01/24 07:02 08/01/24 07:02 Labs: Abnormal Lab Results - Last 24 Hours (Table) 07/31/24 08/01/24 08/01/24 Range/Units 11:04 07:02 07:02 WBC 17.0 H (3.8-10.6) k/uL RBC 3.04 L (4.30-5.90) m/uL Hgb 10.5 L (13.0-17.5) gm/dL Hct 32.6 L (39.0-53.0) % MCV 107.2 H (80.0-100.0) fL RDW 17.1 H (11.5-15.5) % Macrocytosis Marked A Sodium 132 L 132 L (137-145) mmol/L Potassium 5.5 H 5.2 H (3.5-5.1) mmol/L Chloride 96 L 95 L (98-107) mmol/L BUN 79 H 80 H (9-20) mg/dL Creatinine 5.35 H 6.28 H (0.66-1.25) mg/dL Total Bilirubin 4.6 H (0.2-1.3) mg/dL Alkaline Phosphatase 203 H (38-126) U/L Albumin 2.7 L (3.5-5.0) g/dL Microbiology - Last 24 Hours (Table) 07/30/24 16:16 Blood Culture - Preliminary Blood 07/28/24 10:34 Blood Culture - Preliminary Blood Assessment and Plan (1) MRSA bacteremia Current Visit: Yes Status: Acute Code(s): R78.81 - BACTEREMIA; B95.62 - METHICILLIN RESIS STAPH INFCT [facility] Code(s): 16111774789798901 (2) Leukocytosis Current Visit: Yes Status: Acute Code(s): D72.829 - ELEVATED WHITE BLOOD CELL COUNT, UNSPECIFIED SNOMED Code(s): 931807616 Plan: 1patient with sepsis in this patient who did have a fever elevated white count hypotension requiring pressor support and now with evidence of MRSA bacteremia likely the source of the sepsis and possible related to his dialysis catheter 2-patient did have persistent bacteremia and the blood cultures from the dialysis catheter also positive highly suspicious for dialysis catheter infection which has been discontinued catheter tip culture positive for MRSA 3-patient blood culture from 07/28/2024 as well as 07/30/2024 remains to be negative patient has been cleared for permacatheter placement 4-elevated white count will monitor closely is spiking a fever of fluid worsening to reculture and adjust antibiotic for now continue with the daptomycin Dictation was produced using [employer] dictation software. please excuse any grammatical, word or spelling errors.
--- NOTE | 2024-08-01 19:47 | P.PN ---
Subjective Patient is seen for follow-up for acute kidney injury and chronic kidney disease. Started on hemodialysis on 07/06/2024 due to worsening volume status. Patient had been hypotensive with positive blood cultures for MRSA. Dialysis catheter was removed on 07/27/2024. He remains oliguric and currently awaiting blood cultures to be negative for dialysis catheter placement. Vascular surgery was contacted to place dialysis catheter today however patient decided to proceed with hospice care and it appears that he may have subsequently changed his mind. No complaints of shortness of breath. Serum potassium 5.2 today. Objective - Vital Signs Vital signs: Vital Signs Temp 97.5 F L 08/01/24 16:08 Pulse 87 08/01/24 16:08 Resp 20 08/01/24 16:08 BP 106/69 08/01/24 18:14 Pulse Ox 94 L 08/01/24 16:08 FiO2 21 07/22/24 04:00 Intake & Output 08/01/24 08/01/24 08/02/24 06:59 18:59 06:59 Intake Total 100 Output Total 0 0 Balance 100 0 Weight 350.9 kg 158.712 kg Intake: IV 20 Invasive Line 1 20 Oral 80 Output: Urine 0 0 Other: Voiding Method Urinal External Catheter # Voids 1 # Bowel Movements 1 ABP, PAP, CO, CI - Last Documented Arterial Blood Pressure 106/46 - Exam Patient is awake, comfortable, no acute distress. Examination of the heart S1 and S2 Examination of the lungs decreased breath sounds at the bases Abdomen is soft obese nontender Examination of lower extremities shows edema 1+ bilaterally, with chronic skin changes. [employer]AR[employer]ER exam grossly intact - Labs CBC & Chem 7: 08/01/24 07:02 08/01/24 07:02 Labs: Abnormal Lab Results - Last 24 Hours (Table) 08/01/24 08/01/24 Range/Units 07:02 07:02 WBC 17.0 H (3.8-10.6) k/uL RBC 3.04 L (4.30-5.90) m/uL Hgb 10.5 L (13.0-17.5) gm/dL Hct 32.6 L (39.0-53.0) % MCV 107.2 H (80.0-100.0) fL RDW 17.1 H (11.5-15.5) % Macrocytosis Marked A Sodium 132 L (137-145) mmol/L Potassium 5.2 H (3.5-5.1) mmol/L Chloride 95 L (98-107) mmol/L BUN 80 H (9-20) mg/dL Creatinine 6.28 H (0.66-1.25) mg/dL Total Bilirubin 4.6 H (0.2-1.3) mg/dL Alkaline Phosphatase 203 H (38-126) U/L Albumin 2.7 L (3.5-5.0) g/dL Microbiology - Last 24 Hours (Table) 07/30/24 16:16 Blood Culture - Preliminary Blood 07/28/24 10:34 Blood Culture - Preliminary Blood Assessment and Plan Assessment: 1. Acute kidney injury secondary to ATN secondary to hypotension and cardiorenal syndrome. Started on hemodialysis on 07/06/2024 due to worsening renal function and persistent volume overload. No hydronephrosis noted on ultrasound. Trace protein on UA. Right IJ permacath removed on 07/27/2024 due to MRSA bacteremia. Last dialysis on 07/27/2024 2. 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 Creatinine 1.5 in March 2024. 3. Acute on chronic diastolic CHF and moderate mitral consultation, severe tricuspid regurgitation and pulmonary hypertension. 4. Volume overload. Improved with dialysis and ultrafiltration. 5. Right lower extremity cellulitis and Enterococcus UTI on antibiotics. ID following. 6. Hypervolemic hyponatremia. Improved 7. MRSA bacteremia. Status post removal off permacath. Tip culture was positive for MRSA. Repeat blood cultures negative from 07/28/2024 and 07/30/2024 Plan: Proceed with dialysis catheter placement in a.m. if patient has decided against hospice care and wishes to pursue renal replacement therapy.
[2024-08-02 07:45] LABS: Glucose,Whole Blood 68 mg/dL (70-110)
[2024-08-02] MEDS: DEXTROSE 50% SYRINGE 50 ML IVP STA (07:48)
[2024-08-02 08:06] LABS: Glucose,Whole Blood 89 mg/dL (70-110)
--- NOTE | 2024-08-02 08:49 | P.PN ---
Subjective Principal diagnosis: Sepsis with renal failure. The patient is a 78-year-old white male with known history of hypertension sepsis and renal disease. The patient has not had dialysis for several days secondary to sepsis. The patient creatinine is elevating. He is barely arousable. I had a long discussion with his who is in agreement with comfort care. Objective - Vital Signs Vital signs: Vital Signs Temp 97.4 F L 08/02/24 07:39 Pulse 109 H 08/02/24 07:55 Resp 15 08/02/24 07:55 BP 95/68 08/02/24 07:55 Pulse Ox 96 08/02/24 07:55 FiO2 21 07/22/24 04:00 Intake & Output 08/01/24 08/02/24 08/02/24 18:59 06:59 18:59 Intake Total 100 20 Output Total 0 0 Balance 100 20 Weight 158.712 kg 159.1 kg Intake: IV 20 20 Invasive Line 1 20 20 Oral 80 Output: Urine 0 0 Other: Voiding Method External Catheter External Catheter ABP, PAP, CO, CI - Last Documented Arterial Blood Pressure 106/46 - Constitutional General appearance: Present: morbidly obese - EENT Eyes: Absent: abnormal pupil - Respiratory Respiratory: bilateral: diminished - Cardiovascular Rhythm: irregularly irregular Heart sounds: normal: S1, S2 Abnormal Heart Sounds: Absent: S3 Gallop - Gastrointestinal General gastrointestinal: Present: soft. Absent: tenderness - Musculoskeletal Musculoskeletal: Present: generalized weakness - Psychiatric Psychiatric: Absent: intact judgment & insight - Labs CBC & Chem 7: 08/01/24 07:02 08/01/24 07:02 Labs: Abnormal Lab Results - Last 24 Hours (Table) 08/02/24 Range/Units 07:44 POC Glucose (mg/dL) 68 L (70-110) mg/dL Microbiology - Last 24 Hours (Table) 07/30/24 16:16 Blood Culture - Preliminary Blood Assessment and Plan (1) Hypotension Current Visit: Yes Status: Acute Code(s): I95.9 - HYPOTENSION, UNSPECIFIED SNOMED Code(s): 66287339 (2) Left leg cellulitis Current Visit: Yes Status: Acute Code(s): L03.116 - CELLULITIS OF LEFT LOWER LIMB SNOMED Code(s): 67805760371078042 (3) Weakness Current Visit: Yes Status: Acute Code(s): R53.1 - WEAKNESS SNOMED Code(s): 75440761 Plan: Acute on chronic renal failure. Continued hypotension today related to renal disease. After long discussion with his , we will institute comfort care. See orders otherwise. Time with Patient: Greater than 30
[2024-08-02 10:41] VITALS: TEMP 98.4
[2024-08-02 11:36] VITALS: BP 71/42; PULSE 95; RESP 14
--- NOTE | 2024-08-02 11:46 | P.PN ---
Subjective Progress Note Date: 08/02/24 Principal diagnosis: Cellulitis. This is a 78-year-old male patient with massive fluid overload, ongoing difficulty with chronic kidney failure as the patient has developed an acute on top of chronic renal disease with extensive third spacing and anasarca and possibly a component of cardiorenal syndrome. 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 Baseline creatinine is around 1.5 back in March 2024. The patient presented to us with volume overload, acute on top of chronic diastolic heart failure with moderate mitral regurgitation. Patient also was diagnosed having an Enterococcus urinary tract infection currently on IV Unasyn. Initial rate, attempts to diurese this patient with Lasix have failed due to ongoing hypotension. The patient was started on midodrine 10 mg p.o. 4 times daily. Subsequently, I was asked to transfer this patient to the ICU for hemodynamic support and pressor use as the patient was going to be started on Lasix 5 mg infusion in combination with Zaroxolyn 5 mg p.o. daily. Based on that, the patient was transferred to the ICU. Lasix s drip was started and the patient will be started also on norepinephrine for blood pressure support. He is currently awake and alert. Following commands. He is on oxygen at 2 L/min nasal cannula. His chest x-ray showing small bilateral pleural effusion and this is less x-ray that was done on 06/26/2024. On 07/21/2024, the patient is undergoing hemodialysis. His blood pressure is stable. The patient was taken off the IV Solu-Cortef yesterday. He remains on metoprolol 50 mg p.o. twice daily. He remains in atrial fibrillation. Rate is controlled for now. He is tolerating dialysis reasonably well. No hemodynamic instability and the patient remains on room air oxygen with a pulse ox of 95%. No other significant events overnight. On 07/22/2024, patient is being seen in follow-up. The patient was transferred to the intensive. As the patient became hypotensive and he developed atrial fibrillation with rapid ventricular response. He was placed on a Cardizem drip at 5 mg an hour and currently is off the Cardizem. He also received a total of 1 L of IV fluid normal saline bolus. Subsequently, the patient was started on low-dose norepinephrine and currently norepinephrine is running at 0.03 mcg/kg/min. Last hemodialysis session was on 07/21/2024 and a total of 2.4 L of fluid was removed. He is currently on 3 days of oxygen by nasal cannula. Awake and alert and communicating. Afebrile. White cell count is 16 with a hemo globin of 11 and a platelet count of 144. BUN is 80 with a creatinine of 3.6. Sodium levels at 133. No respiratory distress. He was taken off the IV hydrocortisone yesterday. Patient was seen today on 07/24/2024, patient is in the ICU, receiving hemodialysis during my evaluation, not requiring any pressors, patient received full course of treatment for his cellulitis and UTI secondary to Enterococcus faecalis, patient is being followed by infectious disease. Repeat blood cultures today are positive for gram-positive cocci in clusters suspected MRSA, infectious disease will be notified and may have to go back on antibiotics/vancomycin. CBC is 13.4 hemoglobin 10.7. Electrolytes are normal except for potassium of 6 which will be corrected after hemodialysis today. BUN is 106 creatinine 4.49 Patient evaluated today on 07/25/2024, patient remains in the ICU, he is on 2 L nasal cannula, not in distress, yesterday I was told about his positive blood cultures showing MRSA patient is now on daptomycin. Patient also had an episode of atrial fibrillation with RVR I bolused the patient with amiodarone, presently on amiodarone drip at 0.5 mg/min, and cardiology will transition his amiodarone today to oral amiodarone. His right lower extremity cellulitis seems to be improving. Patient is on anticoagulation therapy/Eliquis. Not in distress, seems to be doing fairly well overall. Hence considering the patient is hemodynamically stable today, I would likely transfer the patient to a monitored bed on 3 S. today. Patient had ultrafiltration yesterday and 2 L of fluids were removed. WBC count is 13.4 hemoglobin is 10.4 electrolytes showed low sodium of 131 BUN is 82 creatinine 4.08 Was seen today on 07/26/2024, patient is basically the same, remains in the ICU, on room air, not in any distress, undergoing hemodialysis. Blood pressure seems to have stabilized, he is not requiring any pressors, patient is basically an overflow in the ICU, waiting for a bed on 3 S. WBC count is 13.5 hemoglobin 10.7 basic metabolic profile is normal potassium is 5.3 BUN is 95 creatinine 4.34 patient is still undergoing hemodialysis as recommended by nephrology. Seems to be tolerating dialysis quite well, and not requiring pressors at this point. Hemodialysis was started on this patient on July 06 and he has a permacath in place remains on antibiotics for his right lower extremity cellulitis which seems to be improving. Patient was seen today on 07/28/2024, remains on room air, not in any distress, his last hemodialysis was yesterday July 27, permacath removed July 27, patient is oliguric. Patient remains on Lasix 80 mg IV push was given today. Nephrology is waiting for ID to clear for new permacath placement.Remind you patient had positive blood cultures showing MRSA, his blood cultures from yesterday were positive. For this reason his dialysis catheter has been removed and felt to be most likely infected and the source of his bacteremia.His WBC count today is 12.6 hemoglobin 11.3 basic metabolic profile is normal BUN is 57 creatinine 3.41 Seen today on 07/29/2024, patient is calm, comfortable, on room air, not in distress, his last hemodialysis was July 27, his permacath has been removed because of bacteremia and catheter related sepsis. WBC count today is 13.8 hemoglobin 10.3 electrolytes are normal BUN is 61 creatinine 4.14 Patient was seen today on 07/30/2024 patient is comfortable, not in distress, on room air, hemodynamically stable, patient is supposed to have his permacath placed tomorrow and restart on hemodialysis. In the meantime he is developing worsening renal picture and worsening hyperkalemia which is being addressed by nephrology on the case, remains on antibiotics for his positive blood cultures patient's potassium today is 5.6 and BUN is 74 creatinine 4.57. Patient does not respond to diuretics. Progress note dated July 31, 2024. 78-year-old male who is now been in the hospital for 35 days. The patient was last seen by me in the intensive care unit, back on July 16. Currently, he is on room air. He is not receiving any IV fluids. Cultures are positive for methicillin-resistant Staph aureus. The patient is on daptomycin. Current labs include a sodium 132, potassium 5.5, chlorides 96, CO2 22, BUN 79, and creatinine 5.35. Catheter tip culture, from July 27, and , show evidence of methicillin-resistant Staph aureus. Blood cultures are also positive for MRSA. Progress note dated August 01, 2024. 78-year-old male who is now been in the hospital for 36 days. The patient was seen in room 371. He is currently on room air, with saturations of 92%. Is not receiving any IV fluids. The patient is a DO NOT RESUSCITATE patient. Labs today include a white count 17, hemoglobin 10.5, hematocrit 32.6, and platelet count 171,000. Sodium 132, potassium 5.2, chloride 95, CO2 24, BUN 80, creatinine 6.28. Bilirubin is 4.6. Albumin is 2.7. The patient is poorly responsive. He mostly just moans. Most recent blood cultures from July 27, showed methicillin-resistant Staph aureus. Progress note dated August 02, 2024. 78-year-old male seen in room 371. This poor gentleman has been in the hospital now for 37 days. The patient is on 3 L of oxygen by nasal cannula. He is not receiving any IV fluids. The patient continues on daptomycin. He is a DO NOT RESUSCITATE patient. According to the nurses, a comfort care order was placed by the primary service just this morning. That seems very appropriate. No new labs today other than a glucose of 89. Objective - Vital Signs Vital signs: Vital Signs Temp 98.4 F 08/02/24 10:32 Pulse 95 08/02/24 11:35 Resp 14 08/02/24 11:35 BP 71/42 08/02/24 11:35 Pulse Ox 97 08/02/24 11:35 FiO2 21 07/22/24 04:00 Intake & Output 08/01/24 08/02/24 08/02/24 18:59 06:59 18:59 Intake Total 100 20 405 Output Total 0 0 650 Balance 100 20 -245 Weight 158.712 kg 159.1 kg Intake: IV 20 20 45 Invasive Line 1 20 20 45 Oral 80 360 Output: Urine 0 0 650 Other: Voiding Method External Catheter External Catheter External Catheter ABP, PAP, CO, CI - Last Documented Arterial Blood Pressure 106/46 - Exam No acute distress, lethargic/somnolent. Currently on 3 L. The patient is morbidly obese. HEENT examination is grossly unremarkable. Mucous membranes are moist. No oral lesions. Neck supple. Full range of motion. No adenopathy thyromegaly or neck vein distention. Cardiovascular examination reveals regular rhythm rate. S1-S2 normal. No S3 or S4. No discernible murmur noted. Lungs reveal clear breath sounds. Slightly diminished basilar lung sounds. Breath sounds are equal bilaterally. No adventitious lung sounds including wheezes rhonchi or crackles. Abdomen soft bowel sounds are heard. No masses or tenderness. Extremities are intact. No cyanosis or clubbing. 1+ edema is noted. Evidence of left lower extremity cellulitis, and superficial ulceration of the right lower extremity, mid calf. Skin is without rash or lesion. Neurologic examination is brief but nonfocal. - Labs CBC & Chem 7: 08/01/24 07:02 08/01/24 07:02 Labs: Abnormal Lab Results - Last 24 Hours (Table) 08/02/24 Range/Units 07:44 POC Glucose (mg/dL) 68 L (70-110) mg/dL Microbiology - Last 24 Hours (Table) 07/30/24 16:16 Blood Culture - Preliminary Blood Assessment and Plan Assessment: MRSA bacteremia, currently on daptomycin. Acute on chronic diastolic CHF, with hypotension, improved. Methicillin-resistant Staph aureus bacteremia. Hypotension, multifactorial, improved. Acute on chronic stage IIIb kidney disease, currently on hemodialysis. Hyperlipidemia. Chronic atrial fibrillation. Enterococcus faecalis UTI, treated. Severe pulmonary hypertension. Morbid obesity. History of gout. History of sleep apnea syndrome. Prior history of WPW and SVT. Osteoarthritis. History of DVT of the lower extremities. History of glaucoma. Plan: Plan dated July 31, 2024. The patient continues on daptomycin for his methicillin-resistant Staph aureus infection. Labs, x-rays, medications are reviewed. We will continue to follow make recommendations along the way. The patient has now been here in the hospital for 35 days. He has a DO NOT RESUSCITATE patient. That seems to be appropriate to me. We will continue to follow make recommendations along the way. Plan dated August 01, 2024. The patient is seen today in room 371. The patient continues on daptomycin for methicillin-resistant Staph aureus bacteremia. Labs, x-rays, and all medications are reviewed. The patient is currently on room air. The patient is not receiving any IV fluids. The patient does not appear to be in any distress, but the patient is very somnolent/lethargic, and mostly moans. We will continue to follow the patient, make recommendations along the way. Overall prognosis remains poor. Again, the patient is a DO NOT RESUSCITATE patient. Plan dated August 02, 2024. The patient was seen this morning in room 371. We noted that the primary service, Dr. Mendes, placed a comfort care order on this patient. That seems very appropriate. The patient is a DO NOT RESUSCITATE patient. He has been here in the hospital now for 37 days. He continues on 3 L of oxygen by nasal cannula. He is not receiving any IV fluids. The patient was on daptomycin as well. Labs, x-rays, and all medications are reviewed. Again prognosis is extremely poor. Moving forward, we will see the patient only as needed. Time with Patient: Less than 30
--- NOTE | 2024-08-02 12:21 | P.PN ---
Subjective Patient is seen for follow-up for acute kidney injury and chronic kidney disease. Started on hemodialysis on 07/06/2024 due to worsening volume status. Dialysis catheter was removed due to MRSA bacteremia. Family present at bedside today. There are plans to proceed with hospice care. Objective - Vital Signs Vital signs: Vital Signs Temp 98.4 F 08/02/24 10:32 Pulse 95 08/02/24 11:35 Resp 14 08/02/24 11:35 BP 71/42 08/02/24 11:35 Pulse Ox 97 08/02/24 11:35 FiO2 21 07/22/24 04:00 Intake & Output 08/01/24 08/02/24 08/02/24 18:59 06:59 18:59 Intake Total 100 20 405 Output Total 0 0 650 Balance 100 20 -245 Weight 158.712 kg 159.1 kg Intake: IV 20 20 45 Invasive Line 1 20 20 45 Oral 80 360 Output: Urine 0 0 650 Other: Voiding Method External Catheter External Catheter External Catheter ABP, PAP, CO, CI - Last Documented Arterial Blood Pressure 106/46 - Exam Patient is awake, comfortable, no acute distress. Examination of the heart S1 and S2 Examination of the lungs decreased breath sounds at the bases Abdomen is soft obese nontender Examination of lower extremities shows edema 1+ bilaterally, with chronic skin changes. - Labs CBC & Chem 7: 08/01/24 07:02 08/01/24 07:02 Labs: Abnormal Lab Results - Last 24 Hours (Table) 08/02/24 Range/Units 07:44 POC Glucose (mg/dL) 68 L (70-110) mg/dL Microbiology - Last 24 Hours (Table) 07/30/24 16:16 Blood Culture - Preliminary Blood Assessment and Plan Assessment: 1. Acute kidney injury secondary to ATN secondary to hypotension and cardiorenal syndrome. Started on hemodialysis on 07/06/2024 due to worsening renal function and persistent volume overload. No hydronephrosis noted on ultrasound. Trace protein on UA. Right IJ permacath removed on 07/27/2024 due to MRSA bacteremia. Last dialysis on 07/27/2024 2. 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 Creatinine 1.5 in March 2024. 3. Acute on chronic diastolic CHF and moderate mitral consultation, severe tricuspid regurgitation and pulmonary hypertension. 4. Volume overload. Improved with dialysis and ultrafiltration. 5. Right lower extremity cellulitis and Enterococcus UTI on antibiotics. ID following. 6. Hypervolemic hyponatremia. Improved 7. MRSA bacteremia. Status post removal off permacath. Tip culture was positive for MRSA. Repeat blood cultures negative from 07/28/2024 and 07/30/2024 Plan: no plans for renal replacement therapy. Proceed with hospice care.
--- NOTE | 2024-08-02 13:07 | P.PN ---
Subjective Progress Note Date: 08/02/24 Principal diagnosis: Reason for follow-up is left leg cellulitis Patient is a 78-year-old male with a past medical history significant for atrial fibrillation hypertension hyperlipidemia osteoarthritis sleep apnea presenting to the hospital for evaluation of weakness and fall patient was initially treated for cellulitis UTI and subsequently signed off and the patient has been in the hospital undergoing treatment for his acute renal failure patient did have a dialysis catheter placement and is undergoing dialysis patient was running a low-grade fever blood culture has been obtained which came back positive with MRSA prompting reevaluation for this bacteremia. On today's evaluation that is 08/02/2024,the patient denies any fever or any chills, patient is breathing comfortably on 3 L nasal cannula oxygen patient seen to have problems with the low blood pressure this morning was slightly lethargic. Patient did not have lab draw today Objective - Vital Signs Vital signs: Vital Signs Temp 98.4 F 08/02/24 10:32 Pulse 95 08/02/24 11:35 Resp 14 08/02/24 11:35 BP 71/42 08/02/24 11:35 Pulse Ox 97 08/02/24 11:35 FiO2 21 07/22/24 04:00 Intake & Output 08/01/24 08/02/24 08/02/24 18:59 06:59 18:59 Intake Total 100 20 405 Output Total 0 0 650 Balance 100 20 -245 Weight 158.712 kg 159.1 kg Intake: IV 20 20 45 Invasive Line 1 20 20 45 Oral 80 360 Output: Urine 0 0 650 Other: Voiding Method External Catheter External Catheter External Catheter ABP, PAP, CO, CI - Last Documented Arterial Blood Pressure 106/46 - Exam GENERAL DESCRIPTION: An elderly male lying in bed in no distress RESPIRATORY SYSTEM: Unlabored breathing , decreased breath sounds at bases HEART: S1 S2 regular rate and rhythm , ABDOMEN: Soft , no tenderness EXTREMITIES: Bilateral extremity swelling no redness - Labs CBC & Chem 7: 08/01/24 07:02 08/01/24 07:02 Labs: Abnormal Lab Results - Last 24 Hours (Table) 08/02/24 Range/Units 07:44 POC Glucose (mg/dL) 68 L (70-110) mg/dL Microbiology - Last 24 Hours (Table) 07/30/24 16:16 Blood Culture - Preliminary Blood Assessment and Plan (1) MRSA bacteremia Status: Acute Code(s): R78.81 - BACTEREMIA; B95.62 - METHICILLIN RESIS STAPH INFCT CAUSING DISEASES CLASSD [id number] SNOMED Code(s): 47048108517437938 (2) Leukocytosis Status: Acute Code(s): D72.829 - ELEVATED WHITE BLOOD CELL COUNT, UNSPECIFIED SNOMED Code(s): 280704212 Plan: 1patient with sepsis in this patient who did have a fever elevated white count hypotension requiring pressor support and now with evidence of MRSA bacteremia likely the source of the sepsis and possible related to his dialysis catheter 2-patient did have persistent bacteremia and the blood cultures from the dialysis catheter also positive highly suspicious for dialysis catheter inf ection which has been discontinued catheter tip culture positive for MRSA 3-patient blood culture from 07/28/2024 as well as 07/30/2024 remains to be negative patient has been cleared for permacatheter placement, however the patient seem to have worsening of his clinical condition and has been hyper tensive this morning has decided to go hospice which may be appropriate daptomycin can be safely discontinued discussed with the nursing staff Dictation was produced using [employer] software. please excuse any grammatical, word or spelling errors.
--- NOTE | 2024-08-04 16:00 | CDI ---
Documentation Clarification Form Date: 08/04/2024 03:48:28 PM From: Kallie Wolf Phone: Admit Date: 06/26/2024 05:50:00 PM Patient Name: Redd Dave Visit Number: [id number] Discharge Date: 08/02/2024 01:00:00 PM ATTENTION: The Clinical Documentation Specialists (CDI) and [facility] Coding Staff appreciate your assistance in clarifying documentation. Please respond to the clarification below the line at the bottom and electronically sign. The CDI & [facility] Coding staff will review the response and follow-up if needed. Please note: Queries are made part of the Legal Health Record. If you have any questions, please contact the author of this message via ITS. Doctor/Provider: Sophie Johnson Clarification regarding the stage of CKD is requested. Chronic kidney disease stageIIIbis documented per Consult 06/30 and ongoing Progress Notes Chronic kidney disease stage V is documented per Progress Note 07/25 and ongoing Progress Notes History/Risk Factors: 78yo M, Permanent A Fib, ACDHF, ATN on CKD, HTN, HLD, Hx DVT, dilatedthoracic aorta, MR, TR, AV calcification, PHTN, smallpericardial effusion Historical: baseline creatinine near 1.5 dated March 17, 2024 Clinical Indicators: Current BUN: 52 CR: 2.13 GFR: 28-33 Treatment: Hemodialysis as of 07/06 Please clarify the stage of the CKD, if known: [ X] CKD Stage 3b [ ] CKD Stage 5 [ ] ESRD [ ] Other, please specify [ ] Unable to determine Reference: [employer] Stage 1 eGFR = 90 and kidney damage for =3 months Stage 2 eGFR 60-89 and kidney damage for =3 months Stage 3a eGFR 45-59 and kidney damage for =3 months Stage 3b eGFR 30-44 and kidney damage for =3 months Stage 4 eGFR 15-29 r and kidney damage for =3 months Stage 5 eGFR <15 and kidney damage for =3 months (Template last revised: October 2023) MTDD
== END 2024-08-02 13:00 | disposition hospice, inpatient (51) | DRG 682 ==
LOC: EC 12:58 → 3SCARD 17:50 → 2SICU 07-02 14:30 → 3SCARD 07-17 18:12 → 2SICU 07-21 21:00 → 3SCARD 07-26 22:19
PROVIDERS: ADMIT Family Medicine; ATTEND Family Medicine
PROC: 3E053XZ Introduction of Vasopressor into Peripheral Artery, Percutaneous Approach (ICD-10-PCS; principal; 2024-07-02)
PROC: 30233J1 Transfusion of Nonautologous Serum Albumin into Peripheral Vein, Percutaneous Approach (ICD-10-PCS; 2024-07-02)
PROC: 0T9B70Z Drainage of Bladder with Drainage Device, Via Natural or Artificial Opening (ICD-10-PCS; 2024-07-02)
PROC: 02HV33Z Insertion of Infusion Device into Superior Vena Cava, Percutaneous Approach (ICD-10-PCS; 2024-07-05)
PROC: 3E043XZ Introduction of Vasopressor into Central Vein, Percutaneous Approach (ICD-10-PCS; 2024-07-05)
PROC: 03HY32Z Insertion of Monitoring Device into Upper Artery, Percutaneous Approach (ICD-10-PCS; 2024-07-05)
PROC: 4A133B1 Monitoring of Arterial Pressure, Peripheral, Percutaneous Approach (ICD-10-PCS; 2024-07-05)
PROC: 4A133J1 Monitoring of Arterial Pulse, Peripheral, Percutaneous Approach (ICD-10-PCS; 2024-07-05)
PROC: 5A1D70Z Performance of Urinary Filtration, Intermittent, Less than 6 Hours Per Day (ICD-10-PCS; 2024-07-06)
PROC: 02HV33Z Insertion of Infusion Device into Superior Vena Cava, Percutaneous Approach (ICD-10-PCS; 2024-07-07)
PROC: 06HY33Z Insertion of Infusion Device into Lower Vein, Percutaneous Approach (ICD-10-PCS; 2024-07-08)
DX: N17.0 Acute kidney failure with tubular necrosis (principal); A41.02 Sepsis due to Methicillin resistant Staphylococcus aureus; T80.211A Bloodstream infection due to central venous catheter, initial encounter; J96.00 Acute respiratory failure, unspecified whether with hypoxia or hypercapnia; I50.33 Acute on chronic diastolic (congestive) heart failure; I13.2 Hypertensive heart and chronic kidney disease with heart failure and with stage 5 chronic kidney disease, or end stage renal disease; I48.21 Permanent atrial fibrillation; E27.40 Unspecified adrenocortical insufficiency; E87.1 Hypo-osmolality and hyponatremia; I31.39 Other pericardial effusion (noninflammatory); R18.8 Other ascites; L03.116 Cellulitis of left lower limb; N39.0 Urinary tract infection, site not specified; Z51.5 Encounter for palliative care; Z66 Do not resuscitate; D69.6 Thrombocytopenia, unspecified; I50.82 Biventricular heart failure; I27.20 Pulmonary hypertension, unspecified; E66.01 Morbid (severe) obesity due to excess calories; I77.810 Thoracic aortic ectasia; K74.69 Other cirrhosis of liver; N18.32 Chronic kidney disease, stage 3b; Z91.158 Patient's noncompliance with renal dialysis for other reason; E83.39 Other disorders of phosphorus metabolism; E03.9 Hypothyroidism, unspecified; I08.3 Combined rheumatic disorders of mitral, aortic and tricuspid valves; B95.2 Enterococcus as the cause of diseases classified elsewhere; R16.2 Hepatomegaly with splenomegaly, not elsewhere classified; R53.81 Other malaise; Z79.01 Long term (current) use of anticoagulants; E87.5 Hyperkalemia; E78.5 Hyperlipidemia, unspecified; G47.33 Obstructive sleep apnea (adult) (pediatric); I95.89 Other hypotension; N47.1 Phimosis; N48.89 Other specified disorders of penis; R79.1 Abnormal coagulation profile; R29.6 Repeated falls; W19.XXXA Unspecified fall, initial encounter; Y71.1 Therapeutic (nonsurgical) and rehabilitative cardiovascular devices associated with adverse incidents; Z68.39 Body mass index [BMI] 39.0-39.9, adult; Y92.009 Unspecified place in unspecified non-institutional (private) residence as the place of occurrence of the external cause; Z79.890 Hormone replacement therapy; Z79.899 Other long term (current) drug therapy; Z86.718 Personal history of other venous thrombosis and embolism; Z86.13 Personal history of malaria; Z11.52 Encounter for screening for COVID-19; Z91.81 History of falling
CPT/HCPCS: 36410; 36415; 36558; 70450; 71045; 71046; 72125; 72170; 76700; 76857; 76937; 77001; 80048; 80053; 80076; 81001; 82533; 83605; 83735; 83880; 84100; 84132; 84145; 84439; 84443; 84484; 85025; 85027; 85610; 85652; 85730; 86140; 86706; 87040; 87070; 87077; 87086; 87186; 87340; 87636; 90935; 93005; 93306; 93970; 94660; 94760; 96374; 96375; 99211; 99285

== ENCOUNTER 2024-08-02 13:05 | Inpatient (IN) | payer MEDICARE, OTHER ==
[2024-08-02] MEDS ORDERED: ACETAMINOPHEN TAB 325 MG TAB PO PRN (13:17)
[2024-08-02] MEDS ORDERED: ONDANSETRON 4 MG/2 ML VIAL IVP PRN (13:20)
[2024-08-02] MEDS ORDERED: haloperidoL 1 MG TAB PO PRN (13:26)
[2024-08-02] MEDS ORDERED: bisacodyL 10 MG SUPP RECTAL PRN (13:28)
[2024-08-02] MEDS ORDERED: ATROPINE OPHTH SOLN 1% 5ML BTL SUBLINGUAL PRN (13:33)
[2024-08-02] MEDS ORDERED: MORPHINE SULFATE (100 MG/2 ML) 100 MG in SODIUM CHLORIDE 0.9% 100 ML IV SCH (13:45)
[2024-08-02] MEDS: LORazepam 1 MG TAB PO PRN (13:48)
[2024-08-02] MEDS: MORPHINE SULFATE (100 MG/2 ML) 100 MG in SODIUM CHLORIDE 0.9% 100 ML IV SCH (14:18)
[2024-08-02 14:48] VITALS: BP 62/44; PULSE 101
[2024-08-02] MEDS: DOCUSATE 100 MG CAP PO SCH (20:29)
[2024-08-02 23:50] VITALS: RESP 10
--- NOTE | 2024-08-03 08:28 | P.PN ---
Subjective Progress Note Date: 08/03/24 Patient remains comfort care. is present at bedside. Objective - Vital Signs Vital signs: Vital Signs Temp Pulse 101 H 08/02/24 14:21 Resp 10 L 08/02/24 23:49 BP 62/44 08/02/24 14:21 Pulse Ox 80 L 08/02/24 14:21 FiO2 Intake & Output 08/02/24 08/03/24 08/03/24 18:59 06:59 18:59 Intake Total 5.899 22.78 Balance 5.899 22.78 Weight 159.1 kg Intake: Intake, IV Titration 5.899 22.78 Amount Morphine Sulfate (100 mg/ 5.899 22.78 2 ml) 100 mg In Sodium Chloride 0.9% 100 ml @ 1 MG/HR 1.02 mls/hr IV . Q24H [facility] Rx#:[id number] Other: Voiding Method Diaper Diaper # Voids 1 # Bowel Movements 1 Assessment and Plan (1) Acute kidney injury Current Visit: No Status: Acute Code(s): N17.9 - ACUTE KIDNEY FAILURE, UNSPECIFIED SNOMED Code(s): 90803066 Plan: Continue comfort care. Patient seen and evaluated by nurse practitioner, physician in agreement with plan.
== END 2024-08-03 14:20 | disposition expired | DRG 951 ==
LOC: 3SCARD 13:05 → 5NMEDONC 14:16
PROVIDERS: ADMIT Family Medicine; ATTEND Family Medicine
DX: Z51.5 Encounter for palliative care (principal); N17.9 Acute kidney failure, unspecified; I48.20 Chronic atrial fibrillation, unspecified; L03.116 Cellulitis of left lower limb; N39.0 Urinary tract infection, site not specified; R79.1 Abnormal coagulation profile; Z86.718 Personal history of other venous thrombosis and embolism; M10.9 Gout, unspecified; W19.XXXA Unspecified fall, initial encounter